=== PATIENT | male | born 1970 | race Caucasian/White ===

== ENCOUNTER 2016-12-18 16:16 | Emergency (ER) | payer MEDICAID ==
[2016-12-18] MEDS ORDERED: HYDROmorphone 1 MG/ML SYRINGE IM STA (16:41)
--- NOTE | 2016-12-18 16:43 | ED Physician Documentation ---
PD HPI HEADACHE - Stated complaint Stated Complaint: HEADACHE X'S 3 DAYS - Chief complaint Chief Complaint: Neuro - History obtained from History obtained from: Patient, Family - History of Present Illness Timing - onset: Other (46-year-old gentleman with no history of headache disorder presents with a three-day gradual onset global throbbing headache not associated with nausea, neck stiffness, photophobia. No cough or runny nose or sinus pain. He is having a lot of ongoing neck pain. Not under undue stress. [id number] oral medications have not been helpful.) Timing - details: Gradual onset, Still present, Constant Review of Systems Ten Systems: 10 systems reviewed and negative Constitutional: reports: Reviewed and negative Nose: reports: Reviewed and negative Throat: reports: Reviewed and negative Cardiac: reports: Reviewed and negative PD PAST MEDICAL HISTORY - Past Medical History Cardiovascular: Hypertension, High cholesterol Psych: Depression, Anxiety, ADD/ADHD Musculoskeletal: Chronic back pain - Past Surgical History Past Surgical History: Yes - Present Medications Home Medications: Ambulatory Orders Medication Instructions Recorded Confirmed Atenolol 100 mg PO QPM 05/06/14 12/18/16 cloNIDine [Catapres] 0.1 tab PO QPM 05/06/14 12/18/16 Gabapentin 0 mg PO .FREQ 05/21/16 12/18/16 HYDROcod/ACETAM 5/325 [[place] 5/325] 1 tab PO QID 12/18/16 12/18/16 Meloxicam [Mobic] 7.5 mg PO BIDWM PRN #15 tablet 12/18/16 Sertraline [Zoloft] 0 mg PO DAILY 12/18/16 12/18/16 - Allergies Allergies/Adverse Reactions: Allergies Allergy/AdvReac Type Severity Reaction Status Date / Time droperidol AdvReac Unknown Verified 12/18/16 16:24 - Social History Does the pt smoke?: No Smoking Status: Never smoker Does the pt drink ETOH?: No Does the pt have substance abuse?: No - Family History Family history: reports: Non contributory - Immunizations Immunizations are current?: Yes PD ED PE NORMAL - Vitals Vital signs reviewed: Yes - General General: Alert and oriented X 3, No acute distress - HEENT HEENT: PERRL, EOMI, Ears normal, Moist mucous membranes, Pharynx benign, Dentition benign - Neck Neck: Supple, no meningeal sign, No bony TTP - Neuro Neuro: Alert and oriented X 3, 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 Given that he doesn' t have a history of headaches cranial imaging was done and negative. Initially was treated with Dilaudid IM, but then after review of his [facility] E. and previous visits here suggesting a concern for narcotic abuse was treated with Toradol IM and Imitrex with good relief Departure - Departure Disposition: 01 Home, Self Care Clinical Impression: Headache Qualifiers: Headache type: unspecified Headache chronicity pattern: acute headache Intractability: not intractable Qualified Code(s): R51 - Headache Condition: Good Record reviewed to determine appropriate education?: Yes Instructions: ED Cephalgia Unspecified Prescriptions: Meloxicam [Mobic] 7.5 mg PO BIDWM PRN #15 tablet PRN Reason: Pain Comments: Call your doctor to arrange a follow up appointment. Make the next available appointment. In the interim return anytime if worse or if new symptoms develop. Your blood pressure was elevated today on check in to the emergency department. This does not mean that you have hypertension, it is a common phenomenon to check into the emergency department and have elevated blood pressure. I recommend that you see your primary care physician within the week to have it rechecked when you're feeling better. Discharge Date/Time: 12/18/16 18:17
[2016-12-18] MEDS ORDERED: HYDROmorphone 1 MG/ML SYRINGE ONE (17:04)
--- NOTE | 2016-12-18 17:27 | CT Preliminary Report ---
Exam: CT Head W/O IMPRESSION: Normal head CT. [facility] SITE ID: [id number]
--- NOTE | 2016-12-18 17:32 | CT Report ---
EXAM: CT HEAD EXAM DATE: 12/18/2016 05:12 PM. CLINICAL HISTORY: Headache. COMPARISON: None. TECHNIQUE: Multiaxial CT images were obtained from the foramen magnum to the vertex. IV contrast: Non e. Reformats: Coronal. In accordance with CT protocol optimization, one or more of the following dose reduction techniques w ere utilized for this exam: automated exposure control, adjustment of mA and/or KV based on patient s ize, or use of iterative reconstructive technique. FINDINGS: Parenchyma: No intraparenchymal hemorrhage. No evidence of mass, midline shift, or CT findings of inf arction. Cohen-white differentiation is distinct. Extraaxial Spaces: Normal for age. No subdural or epidural collections identified. Ventricles: Normal in size and position. Sinuses: Imaged paranasal sinuses, orbits, and mastoids show no significant abnormality. Bones: No evidence of fracture or calvarial defect. Other: None. IMPRESSION: Normal head CT. [facility] Referring Provider Line: [phone] SITE ID: [id number]
[2016-12-18] MEDS ORDERED: KETOROLAC 60 MG/2 ML VIAL IM STA (17:48)
[2016-12-18] MEDS ORDERED: SUMAtriptan 6 MG/0.5 ML VIAL SUBQ STA (17:48)
[2016-12-18] MEDS ORDERED: KETOROLAC 60 MG/2 ML VIAL ONE (17:55)
[2016-12-18] MEDS ORDERED: SUMAtriptan 6 MG/0.5 ML VIAL SUBQ ONE (17:55)
[2016-12-18 18:18] VITALS: BP 160/101
== END 2016-12-18 18:17 | disposition home or self-care (01) ==
LOC: ED 16:16
DX: R51 Headache (principal); I10 Essential (primary) hypertension; E78.00 Pure hypercholesterolemia, unspecified
CPT/HCPCS: 70450; 96372; 99283; J1170

== ENCOUNTER 2017-02-03 18:38 | Emergency (ER) | payer MEDICAID ==
--- NOTE | 2017-02-03 21:27 | ED Physician Documentation ---
PD HPI BACK PAIN - Stated complaint Stated Complaint: LT LOW BACK/LEG PX - Chief complaint Chief Complaint: Back Pain - History obtained from History obtained from: Patient - History of Present Illness Timing - onset: How many days ago (3) Timing - details: Waxing and waning Pain level max: 9 Pain level now: 8 Location: Lower, Left Quality: Pain, Spasm, Similar to prior episodes Associated symptoms: Weakness (mild LLE weakness). No: Fever, Numbness, Incontinent of urine, Unable to urinate, Hematuria, Incontinent of stool Recently seen: Emergency Dept - Additional information Additional information: exacerbation of LBP yesterday after heavy lifting. says he has an appointment with PMD Thursday, but too much pain to wait. says he did not take more than his prescribed narcotic medication, "thats for my nexk and i dont want to run out early". PD PAST MEDICAL HISTORY - Past Medical History Cardiovascular: Hypertension, High cholesterol Psych: Depression, Anxiety, ADD/ADHD Musculoskeletal: Chronic back pain - Past Surgical History Past Surgical History: Yes - Present Medications Home Medications: Ambulatory Orders Medication Instructions Recorded Confirmed Atenolol 100 mg PO QPM 05/06/14 02/03/17 cloNIDine [Catapres] 0.1 tab PO QPM 05/06/14 02/03/17 Gabapentin 0 mg PO .FREQ 05/21/16 02/03/17 HYDROcod/ACETAM 5/325 [[place] 5/325] 1 tab PO QID 12/18/16 02/03/17 Sertraline [Zoloft] 0 mg PO DAILY 12/18/16 02/03/17 - Allergies Allergies/Adverse Reactions: Allergies Allergy/AdvReac Type Severity Reaction Status Date / Time droperidol AdvReac Unknown Verified 12/18/16 16:24 - Social History Does the pt smoke?: No Smoking Status: Never smoker Does the pt drink ETOH?: No Does the pt have substance abuse?: No - Immunizations Immunizations are current?: Yes PD ED PE NORMAL - Vitals Vital signs reviewed: Yes - General General: Alert and oriented X 3, No acute distress, Well developed/nourished - Cardiac Cardiac: RRR, No murmur - Respiratory Respiratory: No respiratory distress, Clear bilaterally - Abdomen Abdomen: Soft, Non tender, Non distended - Derm Derm: Normal color, Warm and dry, No rash - Extremities Extremities: No edema - Neuro Neuro: Alert and oriented X 3, 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 Most recent ED visit was in [place], [place], which patient flatly denies. i expressed my concern with his number and pattern of ED visits. I offered IM toradol, PO flexeril, and oxycodone. I said that any further medications would be nonnarcotic. he responded with "well, why waste anyone's time? just give me the toradol and the flexeril". he also took the oxycodone.i encouraged him to f/ u with his PMD Departure - Departure Disposition: 01 Home, Self Care Clinical Impression: Sciatica Qualifiers: Laterality: left Qualified Code(s): M54.32 - Sciatica, left side Condition: Good Instructions: ED Sciatica Follow-Up: JOSHUA CARDENAS I [Primary Care Provider] - Discharge Date/Time: 02/03/17 22:17
[2017-02-03] MEDS ORDERED: oxyCODONE 5 MG TABLET PO STA (22:08)
[2017-02-03] MEDS ORDERED: CYCLOBENZAPRINE 10 MG TABLET PO STA (22:08)
[2017-02-03] MEDS ORDERED: DEXAMETHASONE 10 MG/ML VIAL PO STA (22:08)
[2017-02-03] MEDS ORDERED: oxyCODONE 5 MG TABLET ONE (22:13)
[2017-02-03] MEDS ORDERED: CYCLOBENZAPRINE 10 MG TABLET PO ONE (22:13)
[2017-02-03] MEDS ORDERED: DEXAMETHASONE 10 MG/ML VIAL ONE (22:14)
[2017-02-03] MEDS ORDERED: CHERRY SYRUP 10 ML UDC PO ONE (22:14)
[2017-02-03 22:17] VITALS: BP 136/89
== END 2017-02-03 22:17 | disposition home or self-care (01) ==
LOC: ED 18:38
DX: M54.32 Sciatica, left side (principal); I10 Essential (primary) hypertension
CPT/HCPCS: 99283; A9270

== ENCOUNTER 2017-02-12 11:07 | Emergency (ER) | payer MEDICAID ==
[2017-02-12 11:14] VITALS: BP 151/91
--- NOTE | 2017-02-12 12:22 | ED Physician Documentation ---
PD HPI LOWER EXT INJURY - Stated complaint Stated Complaint: LT HIP PX - Chief complaint Chief Complaint: Ext Problem - History obtained from History obtained from: Patient - History of Present Illness PD HPI LOW EXT INJURY LOCATION: Other (About a week ago he had a ground-level fall directly onto his left hip, he has persistent pain there, but can walk and bear weight, the worst time is when he rolls over onto it at night. Pain is over the greater trochanteric bursa. No inguinal pain or other injuries.) Review of Systems Constitutional: denies: Fever, Chills GI: denies: Abdominal Pain, Nausea, Vomiting : denies: Dysuria, Frequency Musculoskeletal: denies: Back pain PD PAST MEDICAL HISTORY - Past Medical History Cardiovascular: Hypertension, High cholesterol Psych: Depression, Anxiety, ADD/ADHD Musculoskeletal: Chronic back pain - Past Surgical History Past Surgical History: Yes - Present Medications Home Medications: Ambulatory Orders Medication Instructions Recorded Confirmed Atenolol 100 mg PO QPM 05/06/14 02/12/17 cloNIDine [Catapres] 0.1 tab PO QPM 05/06/14 02/12/17 Gabapentin 0 mg PO .FREQ 05/21/16 02/12/17 Sertraline [Zoloft] 0 mg PO DAILY 12/18/16 02/12/17 Meloxicam [Mobic] 7.5 mg PO BIDWM PRN #15 tablet 02/12/17 - Allergies Allergies/Adverse Reactions: Allergies Allergy/AdvReac Type Severity Reaction Status Date / Time droperidol AdvReac Unknown Verified 12/18/16 16:24 - Social History Does the pt smoke?: No Smoking Status: Never smoker Does the pt drink ETOH?: No Does the pt have substance abuse?: No - Immunizations Immunizations are current?: Yes PD ED PE NORMAL - Vitals Vital signs reviewed: Yes - General General: Alert and oriented X 3, No acute distress - Extremities Extremities: Other (He is focally tender over the greater trochanteric bursa of the left hip, he is able to walk and bear weight without evidence of pain, internal and external rotation is painless.) - Neuro Neuro: Alert and oriented X 3, Normal speech - Psych Psych: Normal mood, Normal affect Results - Vitals Vitals: Vital Signs - 24 hr 02/12/17 11:12 Temperature 36.3 C L Heart Rate 86 Respiratory 18 Rate Blood Pressure 151/91 H O2 Saturation 96 Oxygen O2 Source Room air - Rads (name of study) 2 views left hip Radiology: EMP read contemporaneously (normal) PD MEDICAL DECISION MAKING - ED course ED course: GAY reviewed, somewhat concerning pattern with 15 emergency department visits for various pain complaints this year. 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 Departure - Departure Disposition: 01 Home, Self Care Clinical Impression: Fall from ground level, Trochanteric bursitis of left hip Condition: Good Record reviewed to determine appropriate education?: Yes Instructions: ED Bursitis Prescriptions: Meloxicam [Mobic] 7.5 mg PO BIDWM PRN #15 tablet PRN Reason: Pain Comments: Follow-up with your doctor on return home, consider orthopedic referral and/or physical therapy if pain persists. Your blood pressure was elevated today on check into the emergency department. This does not mean that you have hypertension, it is a common phenomenon to come to the emergency department and have elevated blood pressure. I recommend that she see her primary care physician within the week to have it rechecked when you are feeling better.
--- NOTE | 2017-02-12 12:34 | XRAY Preliminary Report ---
Exam: XR Hip w/Pelvis 2-3V LT IMPRESSION: 1. Stable examination with no fracture or articular abnormality. 2. Mild superior acetabular retroversion bilaterally, unchanged. Potentially it may predispose the pa tient to femoroacetabular impingement. [facility] SITE ID: [id number]
--- NOTE | 2017-02-12 12:36 | XRAY Report ---
EXAM: LEFT HIP AND PELVIS RADIOGRAPHY EXAM DATE: 02/12/2017 12:07 PM. HISTORY: Injury. Fell 7 days ago. Left hip pain. COMPARISONS: LEFT HIP AND PELVIS RADIOGRAPHY 01/21/2008. TECHNIQUE: 1 view of the pelvis and 1 view of the left hip. FINDINGS: Bones: Mild superior acetabular retroversion bilaterally, unchanged. No fracture or bone lesion. Joints: The bilateral hip, pubis symphysis, and sacroiliac joints are preserved. Soft Tissues: Normal. No soft tissue swelling. IMPRESSION: 1. Stable examination with no fracture or articular abnormality. 2. Mild superior acetabular retroversion bilaterally, unchanged. Potentially it may predispose the pa tient to femoroacetabular impingement. [facility] Referring Provider Line: [phone] SITE ID: [id number]
== END 2017-02-12 12:25 | disposition home or self-care (01) ==
LOC: ED 11:07
DX: M70.62 Trochanteric bursitis, left hip (principal); W18.30XA Fall on same level, unspecified, initial encounter; I10 Essential (primary) hypertension; E78.00 Pure hypercholesterolemia, unspecified
CPT/HCPCS: 99283

== ENCOUNTER 2017-03-18 07:38 | Emergency (ER) | payer MEDICAID ==
--- NOTE | 2017-03-18 08:05 | ED Physician Documentation ---
History of Present Illness - Stated complaint Stated Complaint: DIFFICULTY BREATHING - Chief complaint Chief Complaint: Cardiac - Additonal information Additional information: hx from pt 46 male HTN hyperlipidemia smoker has chemical stress test at [facility] 1-2 yr ago neg per pt report to ER today with chest tightness and SOA since 9PM last night, constant but dyspnea is worse with laying down no radiation no nausea vomiting no diaphoresis no fever cough no leg swelling no recent travel Review of Systems Constitutional: denies: Fever, Chills, Sweats Cardiac: reports: Chest pain / pressure Respiratory: reports: Dyspnea. denies: Cough GI: denies: Abdominal Pain, Nausea, Vomiting, Diarrhea Musculoskeletal: denies: Extremity pain, Extremity swelling Neurologic: denies: Generalized weakness Endocrine: denies: Easy bruising / bleeding Immunocompromised: denies: Immunocompromised PD PAST MEDICAL HISTORY - Past Medical History Cardiovascular: Hypertension, High cholesterol Psych: Depression, Anxiety, ADD/ADHD Musculoskeletal: Chronic back pain - Past Surgical History Past Surgical History: Yes - Present Medications Home Medications: Ambulatory Orders Medication Instructions Recorded Confirmed Atenolol 100 mg PO QPM 05/06/14 02/12/17 cloNIDine [Catapres] 0.1 tab PO QPM 05/06/14 03/18/17 Gabapentin 900 mg PO TID 05/21/16 02/12/17 Sertraline [Zoloft] 0 mg PO DAILY 12/18/16 02/12/17 Meloxicam [Mobic] 7.5 mg PO BIDWM PRN #15 tablet 02/12/17 Indomethacin [Indocin] 25 mg PO BIDWM PRN #20 capsule 03/18/17 raNITIdine [Zantac] 150 mg PO BID #60 tablet 03/18/17 - Allergies Allergies/Adverse Reactions: Allergies Allergy/AdvReac Type Severity Reaction Status Date / Time droperidol AdvReac Unknown Verified 12/18/16 16:24 - Social History Does the pt smoke?: No Smoking Status: Never smoker Does the pt drink ETOH?: No Does the pt have substance abuse?: No - Immunizations Immunizations are current?: Yes PD ED PE NORMAL - Vitals Vital signs reviewed: Yes - General General: Alert and oriented X 3 - HEENT HEENT: PERRL - Neck Neck: Supple, no meningeal sign - Cardiac Cardiac: RRR - Respiratory Respiratory: No respiratory distress, Clear bilaterally - Abdomen Abdomen: Soft, Non tender - Derm Derm: Normal color - Extremities Extremities: No deformity, Normal ROM s pain, No edema, No calf tenderness / cord - Neuro Neuro: Alert and oriented X 3 - Psych Psych: Normal mood Results - Vitals Vitals: Vital Signs - 24 hr 03/18/17 03/18/17 03/18/17 07:46 08:24 08:32 Temperature 36.6 C Heart Rate 67 61 62 Respiratory 18 Rate Blood Pressure 112/73 118/79 121/73 O2 Saturation 98 98 95 03/18/17 03/18/17 03/18/17 09:29 10:29 11:34 Temperature 36.0 C L 36.5 C 36.9 C Heart Rate 62 62 58 L Respiratory 13 15 16 Rate Blood Pressure 130/80 135/86 H 111/71 O2 Saturation 97 98 98 03/18/17 12:35 Temperature 36.1 C L Heart Rate 58 L Respiratory 14 Rate Blood Pressure 117/61 O2 Saturation 97 Oxygen O2 Source Room air - EKG (time done) 0754 Rate: Rate (enter#) (63) Rhythm: NSR [place]: Normal Intervals: Normal [place] QRS: Normal Ischemia: Normal ST segments - Labs Labs: Laboratory Tests 03/18/17 03/18/17 03/18/17 08:05 08:05 08:05 WBC 6.0 RBC 4.61 L Hgb 13.8 L Hct 41.8 L MCV 90.6 MCH 29.9 MCHC 33.0 RDW 12.8 Plt Count 152 MPV 8.0 Neut # 3.0 Lymph # 2.2 Lewis # 0.4 Eos # 0.3 Baso # 0.1 Absolute Nucleated RBC 0.00 Nucleated RBCs 0.0 Sodium 139 Potassium 4.3 Chloride 100 L Carbon Dioxide 30 Anion Gap 9.0 BUN 17 Creatinine 1.1 Estimated GFR (MDRD) 71 L Glucose 155 H Calcium 9.1 Total Bilirubin 0.4 AST 43 H ALT 48 Alkaline Phosphatase 50 Troponin I < 0.04 Total Protein 7.0 Albumin 4.3 Globulin 2.7 Albumin/Globulin Ratio 1.6 Lipase 21 L - Rads (name of study) CTPA Radiology: See rad report (no PE, mild inc lung marking RLL likely atelectasis) PD MEDICAL DECISION MAKING - ED course ED course: neg EKG and trop after 10+ hr of pain rules out ACS CTA neg for dissection and PE sx worse with laying down, but no CHF consider pericarditis, EKG without typical findings and no effusion seen on CT will reassure not CO PE dissection, perhaps pericarditis or pleurisy will dc with NSAID and PMD fup Departure - Departure Disposition: 01 Home, Self Care Clinical Impression: Chest pain Qualifiers: Chest pain type: unspecified Qualified Code(s): R07.9 - Chest pain, unspecified Condition: Good Instructions: ED Chest Pain Pleurisy, ED Chest Pain Pericarditis Follow-Up: JOSHUA CARDENAS I [Primary Care Provider] - Prescriptions: Indomethacin [Indocin] 25 mg PO BIDWM PRN #20 capsule PRN Reason: pain/inflammation raNITIdine [Zantac] 150 mg PO BID #60 tablet Comments: Your test results were all very reassuring The EKG and cardiac enzymes were negative after 10+hr of symptoms so it does not seem the pain was due to a heart attack. The CT scan was fine - no blood clot in your lung, no aneurysm or tear of your aorta, no fluid around your lungs or heart. Since the pain is worse with laying down and better when you sit up, the symptoms could be due to inflammation of the lining around your heart (called pericarditis) or perhaps the lining around your lungs (called pleurisy). Both these problems are uncomfortable but not usually dangerous and can be managed with anti-inflammatories and pain control I think it is safe for you to go home I prescribed indocin for the anti-inflammatory effect and that will help with the pain too. I do not want to mask any worsening symptoms with narcotics. But nit is OK to take tylenol for the pain as well as the indocin And I also prescribed zantac so the indocin does not hurt your stomach Do not take mobic while taking indocin Please follow up with your PMD for a recheck before the weekend Forms: Activity restrictions
[2017-03-18 08:14] LABS: BASOPHILS # (AUTO) 0.1 10^3/uL (0.0-0.1); BASOPHILS % (AUTO) 1.1 %; EOSINOPHILS # (AUTO) 0.3 10^3/uL (0.0-0.7); EOSINOPHILS % (AUTO) 5.3 %; HCT - HEMATOCRIT 41.8 % (42.0-52.0); HGB - HEMOGLOBIN 13.8 g/dL (14.0-18.0); LYMPHOCYTES # (AUTO) 2.2 10^3/uL (1.5-3.5); LYMPHOCYTES % (AUTO) 36.9 %; MEAN CORPUSCULAR HEMOGLOBIN 29.9 pg (27.0-31.0); MEAN CORPUSCULAR VOLUME 90.6 fL (80.0-94.0); MONOCYTES # (AUTO) 0.4 10^3/uL (0.0-1.0); MONOCYTES % (AUTO) 7.1 %; NEUTROPHILS % (AUTO) 49.6 %; RED BLOOD COUNT 4.61 10^6/uL (4.70-6.10); RED CELL DISTRIBUTION WIDTH 12.8 % (12.0-15.0)
[2017-03-18] MEDS ORDERED: ASPIRIN CHEW 81 MG TABLET PO STA (08:16)
[2017-03-18] MEDS ORDERED: NITROGLYCERIN SL 0.4 MG TABLET SL STA (08:16)
[2017-03-18 08:25] LABS: ALBUMIN/GLOBULIN RATIO 1.6 (1.0-2.2); BILIRUBIN,TOTAL 0.4 mg/dL (0.2-1.0); CALCIUM 9.1 mg/dL (8.5-10.3); CREATININE 1.1 mg/dL (0.6-1.2); POTASSIUM 4.3 mmol/L (3.5-5.0)
[2017-03-18] MEDS ORDERED: ASPIRIN CHEW 81 MG TABLET ONE (08:26)
[2017-03-18] MEDS ORDERED: NITROGLYCERIN SL 0.4 MG TABLET SL ONE (08:26)
[2017-03-18] MEDS ORDERED: MORPHINE 2 MG/ML SYRINGE IVP STA ×2 (08:34→09:25)
[2017-03-18] MEDS ORDERED: MORPHINE 2 MG/ML SYRINGE ONE ×2 (08:40→09:34)
[2017-03-18] MEDS ORDERED: SODIUM CHLORIDE FLUSH 0.9% 10 ML SYRINGE IVP ONE (08:49)
--- NOTE | 2017-03-18 09:17 | XRAY Preliminary Report ---
Exam: XR Chest 2 View PA/LAT Impression: No evidence of infiltrate. [facility] SITE ID: [id number]
--- NOTE | 2017-03-18 09:20 | XRAY Report ---
EXAM: CHEST RADIOGRAPHY EXAM DATE: 03/18/2017 09:03 AM. CLINICAL HISTORY: Short of air . COMPARISON: 06/30/2015. TECHNIQUE: 2 views. FINDINGS: This exam is limited due to the patient's body habitus. There is redemonstration of postoperative tobias nges of the lower cervical and thoracic spine. The heart is not enlarged. There is no focal infiltrat e, pleural effusion or pneumothorax seen. Impression: No evidence of infiltrate. [facility] Referring Provider Line: [phone] SITE ID: [id number]
[2017-03-18] MEDS ORDERED: IOPAMIDOL-300 100 ML VIAL IVP ONE (11:09)
--- NOTE | 2017-03-18 11:46 | CT Preliminary Report ---
Exam: CT Chest Angio (PE) Impression: No evidence of a pulmonary embolus. Mild increased lung markings in the right lower lobe of the lung most likely represent atelectasis an d less likely infiltrate. [facility] SITE ID: [id number]
--- NOTE | 2017-03-18 11:48 | CT Report ---
EXAM: CT ANGIOGRAM CHEST EXAM DATE: 03/18/2017 11:10 AM. CLINICAL HISTORY: Cp soa. COMPARISON: None. TECHNIQUE: Routine helical imaging was performed through the chest in the pulmonary arterial phase. I V Contrast: 80 cc of Isovue-300. Reconstructions: Coronal 3-D MIP reconstructions.Sagittal and miller l. In accordance with CT protocol optimization, one or more of the following dose reduction techniques w ere utilized for this exam: automated exposure control, adjustment of mA and/or KV based on patient s ize, or use of iterative reconstructive technique. FINDINGS: There is no evidence of a mediastinal mass or lymphadenopathy. There is adequate opacification of the pulmonary arteries. There is no filling defect to suggest the presence of a pulmonary embolus. There is no pulmonary mass, pleural effusion or pneumothorax seen. Increased lung markings are noted within the right lung base most likely represent atelectasis and less likely an infiltrate. The visualized upper abdominal organs are without evidence of an enhancing mass. There are degenerati ve changes of the thoracic spine. Impression: No evidence of a pulmonary embolus. Mild increased lung markings in the right lower lobe of the lung most likely represent atelectasis an d less likely infiltrate. [facility] Referring Provider Line: [phone] SITE ID: [id number]
[2017-03-18 12:36] VITALS: BP 117/61
== END 2017-03-18 13:05 | disposition home or self-care (01) ==
LOC: ED 07:38
DX: R07.9 Chest pain, unspecified (principal); I10 Essential (primary) hypertension; E78.5 Hyperlipidemia, unspecified; E78.00 Pure hypercholesterolemia, unspecified; F17.200 Nicotine dependence, unspecified, uncomplicated
CPT/HCPCS: 36415; 71020; 71275; 80053; 83690; 84484; 85025; 93005; 96374; 96376; 99284; A9270; J2270; Q9967

== ENCOUNTER 2017-05-16 11:51 | Emergency (ER) | payer MEDICAID ==
--- NOTE | 2017-05-16 14:17 | ED Physician Documentation ---
PD HPI BACK PAIN - Stated complaint Stated Complaint: BACK PX - Chief complaint Chief Complaint: Back Pain - History obtained from History obtained from: Patient - History of Present Illness Timing - duration: Days (he has noted increased low back pain over baseline for the pastweek or so, and 2 days of onset of numbness feeling in scrotum, inner thighs, and having some feeling of urinary hesitancy without incontinence. No new injury. No fever, rash, viral symptoms.) Timing - details: Gradual onset, Still present Location: Lower, Right, Left Quality: No: Pain, Spasm Associated symptoms: Numbness, Unable to urinate (some hesitancy). No: Weakness , Incontinent of urine Improves with: No: Rest Worsened by: Movement Review of Systems Constitutional: denies: Fever, Chills Nose: denies: Rhinorrhea / runny nose, Congestion Throat: denies: Sore throat Respiratory: denies: Cough GI: denies: Abdominal Pain, Nausea, Vomiting, Diarrhea : reports: Hesitancy. denies: Dysuria, Frequency, Hematuria Skin: denies: Rash PD PAST MEDICAL HISTORY - Past Medical History Cardiovascular: Hypertension, High cholesterol Neuro: None Psych: Depression, Anxiety, ADD/ADHD Musculoskeletal: Chronic back pain (with MRI couple months ago showing disc protrusion to L5 nerve root. Has appt with Spine surgeon in [address].) - Past Surgical History Past Surgical History: Yes - Present Medications Home Medications: Ambulatory Orders Medication Instructions Recorded Confirmed Atenolol 100 mg PO QPM 05/06/14 05/16/17 cloNIDine [Catapres] 0.1 tab PO QPM 05/06/14 05/16/17 Gabapentin 900 mg PO TID 05/21/16 05/16/17 Sertraline [Zoloft] 0 mg PO DAILY 12/18/16 05/16/17 Meloxicam [Mobic] 7.5 mg PO BIDWM PRN #15 tablet 02/12/17 05/16/17 Indomethacin [Indocin] 25 mg PO BIDWM PRN #20 capsule 03/18/17 05/16/17 raNITIdine [Zantac] 150 mg PO BID #60 tablet 03/18/17 05/16/17 Cyclobenzaprine [Flexeril] 10 mg PO TID PRN #30 tablet 05/16/17 Dexamethasone [Decadron] 4 mg PO DAILY #5 tablet 05/16/17 Gabapentin 800 mg PO TID #30 tablet 05/16/17 oxyCODONE [Roxicodone] 5 mg PO Q4-6H PRN #20 tablet 05/16/17 - Allergies Allergies/Adverse Reactions: Allergies Allergy/AdvReac Type Severity Reaction Status Date / Time droperidol AdvReac Unknown Verified 05/16/17 11:57 - Social History Does the pt smoke?: No Smoking Status: Never smoker Does the pt drink ETOH?: No Does the pt have substance abuse?: No - Immunizations Immunizations are current?: Yes PD ED PE NORMAL - Vitals Vital signs reviewed: Yes - General General: Alert and oriented X 3, Well developed/nourished, Other (appears in pain) - HEENT HEENT: Pharynx benign - Neck Neck: Supple, no meningeal sign, No adenopathy - Cardiac Cardiac: RRR, No murmur - Respiratory Respiratory: Clear bilaterally - Abdomen Abdomen: Normal bowel sounds, Soft, Non tender, Non distended - Male Male : Other (less sensation of scrotum and inner thighs, but still has some cremaster response. Perirectal with less sensation subjectively, but has normal feeling rectal one. ) - Back Back: No CVA TTP - Derm Derm: Normal color, Warm and dry, No rash Results - Vitals Vitals: Vital Signs - 24 hr 05/16/17 05/16/17 05/16/17 11:53 14:45 18:27 Temperature 36.8 C 36.5 C Heart Rate 122 H 100 104 H Respiratory 20 16 18 Rate Blood Pressure 181/101 H 161/96 H 156/96 H O2 Saturation 99 97 96 05/16/17 18:53 Temperature Heart Rate 105 H Respiratory 16 Rate Blood Pressure 169/97 H O2 Saturation 97 Oxygen O2 Source Room air - Rads (name of study) lumbar MRI Radiology: Prelim report reviewed (see report. ) PD MEDICAL DECISION MAKING - ED course Complexity details: reviewed old records, reviewed results (Has MRI showing extruded disc L5-S1 but without significant cord canal stenosis (moderate). There is nerve root compresssion laterally. Consider if new numbness could be nerve radicular rather than central canal. He is out of some of his meds too ( gabapentin and flexeril). ), considered differential, d/w patient, d/w construction safety consultant (Lionel Redman) Departure - Departure Disposition: 01 Home, Self Care Clinical Impression: Perineal numbness Back pain Qualifiers: Back pain location: low back pain Chronicity: chronic Back pain laterality: bilateral Sciatica presence: with sciatica Sciatica laterality: sciatica of right side Qualified Code(s): M54.41 - Lumbago with sciatica, right side Condition: Stable Record reviewed to determine appropriate education?: Yes Instructions: ED Sciatica Follow-Up: JOSHUA CARDENAS I [Primary Care Provider] - Lionel Redman MD [Physician No Access] - Prescriptions: Cyclobenzaprine [Flexeril] 10 mg PO TID PRN #30 tablet PRN Reason: Spasms Dexamethasone [Decadron] 4 mg PO DAILY #5 tablet Gabapentin 800 mg PO TID #30 tablet oxyCODONE [Roxicodone] 5 mg PO Q4-6H PRN #20 tablet PRN Reason: Pain Comments: Continue usual medications including the gabapentin Flexeril and continue several more days of steroids Decadron. Add Tylenol 3-4 times a day for pain as needed. Add oxycodone if needed for pain. Contact Dr. Lionel Redman's office on Thursday for a sooner appointment. I talked with Dr. Redman and he said they will get you in sooner than the as scheduled. His office number is [phone]. If you are having worsening symptoms or have questions over the weekend, Dr. Redman did offer his cell phone #[phone]. Return to the ER if needed. Discharge Date/Time: 05/16/17 19:09
[2017-05-16] MEDS ORDERED: HYDROmorphone 1 MG/ML SYRINGE IM STA ×2 (14:34→18:35)
[2017-05-16] MEDS ORDERED: HYDROmorphone 1 MG/ML SYRINGE ONE ×2 (14:47→18:45)
--- NOTE | 2017-05-16 17:52 | MRI Preliminary Report ---
Exam: MRI LUMBAR SPINE W/O IMPRESSION: 1. Moderate multilevel degenerative spondylosis, as detailed above and summarized below. This is supe rimposed on moderate diffuse, likely congenital narrowing of the central canal. No acute fracture or malalignment. No cord signal abnormality at any level. 2. Redemonstration of bilateral L5 pars defects, which grade 1 anterolisthesis L5 on S1 measuring 3 m m. Mild lumbar levoscoliosis.. 3. L2-L3 level demonstrates mild central canal narrowing. Mild bilateral neuroforaminal narrowing. 4. L3-L4 level demonstrates cgmx-xu-sxxnnocs central canal narrowing. Moderate right and mild left ne uroforaminal narrowing. 5. L4-L5 level demonstrates moderate central canal narrowing. Moderate right and mild left neuroforam inal narrowing. Moderate right lateral recess narrowing with mass effect on traversing right L5 nerve . 6. L5-S1 level demonstrates moderate central canal narrowing, mainly due to the epidural lipomatosis. Moderate to severe left and moderate right neuroforaminal narrowing. Comment: The following findings are so common in adults without low back pain that while we report th eir presence, they must be interpreted with caution and in the context of the clinical situation. (Re clayton Laws et al, Spine 2001) Prevalence of findings in patients without low back pain: Disk degeneration (any evidence): 92% Disk desiccation/T2 signal loss: 83% Disk height loss: 56% Disk bulge: 64% Disk protrusion: 32% Annular tear/high intensity zone: 38% [facility] SITE ID: [id number]
--- NOTE | 2017-05-16 17:55 | MRI Report ---
EXAM: MRI LUMBAR SPINE WITHOUT CONTRAST EXAM DATE: 05/16/2017 05:08 PM. CLINICAL HISTORY: H/o back disc problems, saddle anesth 5 days. COMPARISON: Radiograph lumbar spine 04/27/2009 TECHNIQUE: Multiplanar, multisequence T1-weighted and fluid-sensitive sequences of the lumbar spine f rom T12 to S1 without contrast. Other: None. FINDINGS: Spinal Cord: The conus terminates at . The conus medullaris and cauda equina are unremarkable. Alignment: Mild levoscoliosis lumbar spine Coates angle 5 degrees. Grade 1 anterolisthesis L5 on S1 fish suring 3 mm. Bone Marrow: Five phj-dba-diwbxqc lumbar vertebral bodies are assumed. Redemonstration of bilateral L 5 pars defects. The bone marrow is diffusely heterogeneous, likely representing fatty replacement of the marrow. T1 and T2 hyperintense lesions within the L2 and L3 vertebral bodies likely represent zane ign hemangiomata. There is diffuse, likely congenital narrowing of the central canal, with canal AP diameter measuring 11 mm at L2, L3, and L4 levels, for example. Disk Levels/Facets: T12-L1: No significant superimposed central canal or neuroforaminal narrowing. L1-L2: No significant superimposed central canal or neuroforaminal narrowing. L2-L3: Mild diffuse disk bulge. Moderate bilateral facet arthropathy. Mild central canal narrowing. M ild bilateral neuroforaminal narrowing. L3-L4: Moderate disk height loss and desiccation. Moderate diffuse disk bulge. Moderate bilateral fac et arthropathy. Cujg-jo-ybwjtfrm central canal narrowing. Moderate right and mild left neuroforaminal narrowing. L4-L5: Moderate disk height loss and desiccation. Moderate diffuse disk bulge with superimposed centr al disk extrusion measuring 6 mm, with an annular fissure. Moderate to severe bilateral facet arthrop athy. Moderate central canal narrowing. Moderate right and mild left neuroforaminal narrowing. Modera te right lateral recess narrowing with mass effect on traversing right L5 nerve. L5-S1: Moderate epidural lipomatosis. Uncovered disk with superimposed diffuse disk bulge with an kandis ular fissure. Moderate bilateral facet arthropathy. Moderate central canal narrowing, mainly due to t he epidural lipomatosis. Moderate to severe left and moderate right neuroforaminal narrowing. Musculature: Normal. No edema or fatty atrophy. Other: The partially visualized retroperitoneum is unremarkable. IMPRESSION: 1. Moderate multilevel degenerative spondylosis, as detailed above and summarized below. This is supe rimposed on moderate diffuse, likely congenital narrowing of the central canal. No acute fracture or malalignment. No cord signal abnormality at any level. 2. Redemonstration of bilateral L5 pars defects, which grade 1 anterolisthesis L5 on S1 measuring 3 m m. Mild lumbar levoscoliosis.. 3. L2-L3 level demonstrates mild central canal narrowing. Mild bilateral neuroforaminal narrowing. 4. L3-L4 level demonstrates rzog-dp-vaeactzi central canal narrowing. Moderate right and mild left ne uroforaminal narrowing. 5. L4-L5 level demonstrates moderate central canal narrowing. Moderate right and mild left neuroforam inal narrowing. Moderate right lateral recess narrowing with mass effect on traversing right L5 nerve . 6. L5-S1 level demonstrates moderate central canal narrowing, mainly due to the epidural lipomatosis. Moderate to severe left and moderate right neuroforaminal narrowing. Comment: The following findings are so common in adults without low back pain that while we report th eir presence, they must be interpreted with caution and in the context of the clinical situation. (Re clayton Laws et al, Spine 2001) Prevalence of findings in patients without low back pain: Disk degeneration (any evidence): 92% Disk desiccation/T2 signal loss: 83% Disk height loss: 56% Disk bulge: 64% Disk protrusion: 32% Annular tear/high intensity zone: 38% [facility] Referring Provider Line: [phone] SITE ID: [id number]
[2017-05-16] MEDS ORDERED: DEXAMETHASONE 10 MG/ML VIAL PO STA (18:20)
[2017-05-16] MEDS ORDERED: oxyCODONE/ACET 5/325 Prepack 4 PO STA (18:35)
[2017-05-16] MEDS ORDERED: CYCLOBENZAPRINE 10 MG TABLET PO STA (18:36)
[2017-05-16] MEDS ORDERED: oxyCODONE/ACET 5/325 Prepack 4 PO ONE (18:45)
[2017-05-16] MEDS ORDERED: DEXAMETHASONE 10 MG/ML VIAL ONE (18:45)
[2017-05-16] MEDS ORDERED: CYCLOBENZAPRINE 10 MG TABLET PO ONE (18:45)
[2017-05-16 18:56] VITALS: BP 169/97
== END 2017-05-16 19:09 | disposition home or self-care (01) ==
LOC: ED 11:51
DX: M54.41 Lumbago with sciatica, right side (principal); R20.0 Anesthesia of skin; I10 Essential (primary) hypertension; E78.00 Pure hypercholesterolemia, unspecified
CPT/HCPCS: 72148; 96372; 99283; 99284; A9270; J1170

== ENCOUNTER 2017-05-25 13:32 | Emergency (ER) | payer MEDICAID ==
[2017-05-25 13:52] VITALS: BP 173/93
--- NOTE | 2017-05-25 14:38 | ED Physician Documentation ---
PD HPI BACK PAIN - Stated complaint Stated Complaint: BACK PX - Chief complaint Chief Complaint: Back Pain - History obtained from History obtained from: Patient - History of Present Illness Timing - duration: Weeks Timing - details: Gradual onset, Still present (has had back pain and was to see back surgeon in [place]. Had visit here recently for perineal numbness with MRI. Saw the back surgeon Thursday (3 days ago) but they did not have MRI report ( had given patient disc of the MRI to take with him but he had left it at home). So no advancement on the evaluation. Patient denies any progression on inguinal numbness and has not had weakness/incontinence. Out of pain meds.) Location: Lower, Right, Left Quality: Pain, Sharp Associated symptoms: Numbness (perineal and some down left leg.). No: Fever, Weakness, Incontinent of urine Worsened by: Movement Contributing factors: No: Twisting, Trauma Recently seen: Clinic (back surgeon 3 days ago) Review of Systems Constitutional: denies: Fever, Chills Cardiac: denies: Chest pain / pressure GI: denies: Abdominal Pain, Nausea, Vomiting, Diarrhea : denies: Dysuria, Frequency, Incontinent, Hematuria Skin: denies: Rash PD PAST MEDICAL HISTORY - Past Medical History Past Medical History: Yes Cardiovascular: Hypertension, High cholesterol Neuro: None Psych: Depression, Anxiety, ADD/ADHD Musculoskeletal: Chronic back pain - Past Surgical History Past Surgical History: Yes - Present Medications Home Medications: Ambulatory Orders Medication Instructions Recorded Confirmed Atenolol 100 mg PO QPM 05/06/14 05/25/17 cloNIDine [Catapres] 0.1 tab PO QPM 05/06/14 05/25/17 Sertraline [Zoloft] 0 mg PO DAILY 12/18/16 05/25/17 Meloxicam [Mobic] 7.5 mg PO BIDWM PRN #15 tablet 02/12/17 05/25/17 Indomethacin [Indocin] 25 mg PO BIDWM PRN #20 capsule 03/18/17 05/25/17 raNITIdine [Zantac] 150 mg PO BID #60 tablet 03/18/17 05/25/17 oxyCODONE [Roxicodone] 5 mg PO Q4-6H PRN #20 tablet 05/16/17 05/25/17 Cyclobenzaprine [Flexeril] 10 mg PO TID PRN #30 tablet 05/25/17 Dexamethasone [Decadron] 4 mg PO DAILY #5 tablet 05/25/17 Gabapentin 800 mg PO TID #20 tablet 05/25/17 Oxycodone HCl 5 mg PO Q6H PRN #20 tablet 05/25/17 - Allergies Allergies/Adverse Reactions: Allergies Allergy/AdvReac Type Severity Reaction Status Date / Time droperidol AdvReac Unknown Verified 05/25/17 13:52 - Social History Does the pt smoke?: No Smoking Status: Never smoker Does the pt drink ETOH?: No Does the pt have substance abuse?: No - Immunizations Immunizations are current?: Yes - POLST Patient has POLST: No PD ED PE NORMAL - Vitals Vital signs reviewed: Yes - General General: Alert and oriented X 3, Well developed/nourished, Other (guarded ROM of the low back) - Neck Neck: Supple, no meningeal sign, No adenopathy - Cardiac Cardiac: RRR, No murmur - Respiratory Respiratory: Clear bilaterally - Abdomen Abdomen: Soft, Non tender - Male Male : Deferred - Rectal Rectal: Deferred - Back Back: No CVA TTP, Other (tender lower back midline and also both sides muscular , left worse. No rash nor sores. ) - Derm Derm: Normal color, Warm and dry - Extremities Extremities: Normal ROM s pain, No edema, No calf tenderness / cord - Neuro Neuro: Alert and oriented X 3, No motor deficit, Normal speech, Other (less sensation to left lateral leg and genital exam deferred this visit (had checked on prior visit). ) - Psych Psych: Normal mood, Normal affect Results - Vitals Vitals: Vital Signs - 24 hr 05/25/17 13:47 Temperature 36.2 C L Heart Rate 111 H Respiratory 18 Rate Blood Pressure 173/93 H O2 Saturation 98 Oxygen O2 Source Room air PD MEDICAL DECISION MAKING - ED course Complexity details: considered differential (familiar with patient and story from last visit. He had appt with spine surgeon but did not have images so intervention/assessment delayed for a week or so. Will give meds to bridge again , though be wary of repeated delays or such, and would track down info/ corraborate story if further visits. ), d/w patient Departure - Departure Disposition: 01 Home, Self Care Clinical Impression: Sciatica Qualifiers: Laterality: unspecified laterality Qualified Code(s): M54.30 - Sciatica, unspecified side Back pain Qualifiers: Back pain location: low back pain Chronicity: chronic Back pain laterality: unspecified Sciatica presence: with sciatica Sciatica laterality: sciatica laterality unspecified Qualified Code(s): M54.40 - Lumbago with sciatica, unspecified side Condition: Stable Record reviewed to determine appropriate education?: Yes Instructions: ED Sciatica Follow-Up: JOSHUA CARDENAS I [Primary Care Provider] - Prescriptions: Cyclobenzaprine [Flexeril] 10 mg PO TID PRN #30 tablet PRN Reason: Spasms Dexamethasone [Decadron] 4 mg PO DAILY #5 tablet Gabapentin 800 mg PO TID #20 tablet Oxycodone HCl 5 mg PO Q6H PRN #20 tablet PRN Reason: Pain Comments: Use medications as directed for nerve pain, inflammation, muscle spasms, and pain. These are the same prescriptions as from the recent visit to the ER and hopefully that will work as consistently again. Follow-up with your primary care and also the back surgeon in [place]. Discharge Date/Time: 05/25/17 15:53
[2017-05-25] MEDS ORDERED: KETOROLAC 60 MG/2 ML VIAL IM STA (15:05)
[2017-05-25] MEDS ORDERED: HYDROmorphone 1 MG/ML SYRINGE IM STA (15:05)
[2017-05-25] MEDS ORDERED: HYDROmorphone 1 MG/ML SYRINGE ONE (15:17)
[2017-05-25] MEDS ORDERED: KETOROLAC 60 MG/2 ML VIAL ONE (15:17)
== END 2017-05-25 15:53 | disposition home or self-care (01) ==
LOC: ED 13:32
DX: M54.40 Lumbago with sciatica, unspecified side (principal); I10 Essential (primary) hypertension; E78.00 Pure hypercholesterolemia, unspecified
CPT/HCPCS: 96372; 99283; J1170

== ENCOUNTER 2017-06-15 10:30 | Outpatient (CLI) | payer MEDICAID ==
--- NOTE | 2017-06-16 12:11 | XRAY Report ---
EXAM: LUMBOSACRAL SPINE RADIOGRAPHY EXAM DATE: 06/15/2017 01:50 PM. CLINICAL HISTORY: Spinal stenosis of lumbar region. COMPARISONS: 04/27/2009. 05/16/2017. TECHNIQUE: 5 views. FINDINGS: Alignment: Slight accentuation of the lumbar lordosis. In the neutral position there is anterolisthes is of L5 on S1 measuring 4 mm, on extension measuring approximately 6 mm, and on flexion measuring 7 mm. Bones: Five yki-ode-fdykdtz lumbar vertebral bodies are present. No acute fracture. Degenerative spur ring. L5 pars interarticularis defect is noted. Disks: Mild disk space narrowing at L3-L4 and L4-L5. Degenerative changes are seen on the thoracic sp ine. Facets: Mild to moderate lumbar facet arthropathy. Sacroiliac Joints: Unremarkable. Soft Tissues: Normal. The visualized bowel gas pattern is normal. IMPRESSION: 1. Grade 1 anterolisthesis of L5 on S1 due to bilateral pars interarticularis defects at L5. Mild tra nslation between flexion and extension. 2. Mild intervertebral disk degenerative changes of the lumbar spine. 3. Mild to moderate lumbar facet arthropathy. [facility] Referring Provider Line: [phone] SITE ID: [id number]
== END 2017-06-15 10:31 | disposition home or self-care (01) ==
LOC: DI 10:30
PROVIDERS: ATTEND Neurological Surgery
DX: M43.07 Spondylolysis, lumbosacral region (principal); M51.36 Other intervertebral disc degeneration, lumbar region; M47.896 Other spondylosis, lumbar region
CPT/HCPCS: 72110

== ENCOUNTER 2017-07-06 16:40 | Emergency (ER) | payer MEDICAID ==
[2017-07-06 16:55] VITALS: BP 153/93
[2017-07-06] MEDS ORDERED: oxyCOD/ACETAMIN 5 MG/325 MG TABLET PO STA (18:00)
--- NOTE | 2017-07-06 18:01 | ED Physician Documentation ---
PD HPI BACK INJURY - Stated complaint Stated Complaint: NECK INJ - History obtained from History obtained from: Patient - History of Present Illness Location: Other (He has chronic back pain, about a week ago he slipped on the snow and injured his neck and back and he has persistent pain without neurologic symptoms of the neck and low back. No other injuries with pain.) Review of Systems Constitutional: reports: Reviewed and negative Cardiac: reports: Reviewed and negative Respiratory: reports: Reviewed and negative PD PAST MEDICAL HISTORY - Past Medical History Past Medical History: Yes Cardiovascular: Hypertension, High cholesterol Neuro: None Psych: Depression, Anxiety, ADD/ADHD Musculoskeletal: Chronic back pain - Past Surgical History Past Surgical History: Yes - Present Medications Home Medications: Ambulatory Orders Medication Instructions Recorded Confirmed Atenolol 100 mg PO QPM 05/06/14 07/06/17 cloNIDine [Catapres] 0.1 tab PO QPM 05/06/14 07/06/17 Sertraline [Zoloft] 0 mg PO DAILY 12/18/16 07/06/17 Cyclobenzaprine [Flexeril] 10 mg PO TID PRN #30 tablet 05/25/17 07/06/17 Gabapentin 800 mg PO TID #20 tablet 05/25/17 07/06/17 predniSONE [Deltasone] 20 mg PO [id number] #21 tab 07/06/17 - Allergies Allergies/Adverse Reactions: Allergies Allergy/AdvReac Type Severity Reaction Status Date / Time droperidol AdvReac Unknown Verified 07/06/17 16:55 - Social History Does the pt smoke?: No Smoking Status: Never smoker Does the pt drink ETOH?: No Does the pt have substance abuse?: No - Immunizations Immunizations are current?: Yes - POLST Patient has POLST: No PD ED PE NORMAL - Vitals Vital signs reviewed: Yes - General General: Alert and oriented X 3, No acute distress - HEENT HEENT: PERRL, EOMI - Neck Neck: Other (Mild tenderness of the upper cervical spine, good range of motion, no deformity.) - Back Back: Other (Some tenderness of the mid lumbar spine without deformity or limited range of motion.) - Neuro Neuro: Alert and oriented X 3, Normal speech - Psych Psych: Normal mood, Normal affect Results - Vitals Vitals: Vital Signs - 24 hr 07/06/17 16:52 Temperature 36.3 C L Heart Rate 86 Respiratory 17 Rate Blood Pressure 153/93 H O2 Saturation 97 Oxygen O2 Source Room air - Rads (name of study) CT Cspine and LS XR Radiology: EMP read contemporaneously (CT of the C-spine is normal, chronic findings in the low back.) PD MEDICAL DECISION MAKING - ED course ED course: 47-year-old gentleman with chronic low back pain presents a week after a ground- level fall in the snow and has an exacerbation of low back pain and new neck pain. X-rays were negative for acute findings. He was given a Percocet here and a prepack. No previous concerns for drug-seeking behavior. He also requested steroids. Departure - Departure Disposition: 01 Home, Self Care Clinical Impression: Fall from ground level Injury of neck Qualifiers: Encounter type: initial encounter Qualified Code(s): S19.9XXA - Unspecified injury of neck, initial encounter Back pain Qualifiers: Back pain location: low back pain Chronicity: acute Back pain laterality: midline Sciatica presence: without sciatica Qualified Code(s): M54.5 - Low back pain Condition: Good Record reviewed to determine appropriate education?: Yes Instructions: ED Neck Back Pain General Prescriptions: predniSONE [Deltasone] 20 mg PO [id number] #21 tab Comments: Call your doctor to arrange a follow-up appointment, make the next available appointment. In the interim, return anytime if worse or if new symptoms develop. Your blood pressure was elevated today on check into the emergency department. This does not mean that you have hypertension, it is a common phenomenon to come to the emergency department and have elevated blood pressure. I recommend that you see your primary care physician within the week to have it rechecked when you are feeling better.
--- NOTE | 2017-07-06 18:49 | XRAY Report ---
EXAM: LUMBOSACRAL SPINE RADIOGRAPHY EXAM DATE: 07/06/2017 06:27 PM. CLINICAL HISTORY: Back inj. COMPARISONS: 06/15/2017. TECHNIQUE: 3 views. FINDINGS: Alignment: There is grade 1 spondylolisthesis at L5-S1. Alignment at other levels appears satisfactor y. Bones: Five bjk-iif-ydwwulw lumbar vertebral bodies are present. There are findings of L5 spondylolys is. Unchanged. Disks: There is mild disk height loss at L3-L4 and L4-L5. Facets: Satisfactory alignment. Sacroiliac Joints: Unremarkable. Soft Tissues: Normal. The visualized bowel gas pattern is normal. IMPRESSION: 1. Grade 1 spondylolisthesis at L5-S1 with L5 spondylolysis. 2. Mild degenerative disk disease at L3-L4 and L4-L5. [facility] Referring Provider Line: [phone] SITE ID: [id number]
--- NOTE | 2017-07-06 18:49 | XRAY Preliminary Report ---
Exam: XR LUMBAR SPINE 2 VIEW IMPRESSION: 1. Grade 1 spondylolisthesis at L5-S1 with L5 spondylolysis. 2. Mild degenerative disk disease at L3-L4 and L4-L5. [facility] SITE ID: [id number]
--- NOTE | 2017-07-06 19:24 | CT Report ---
EXAM: CT CERVICAL SPINE WITHOUT CONTRAST DATE: 07/06/2017 06:37 PM. HISTORY: Neck pain, injury. COMPARISONS: Cervical spine CT 12/09/2015. TECHNIQUE: Thin-section axial images were acquired of the cervical spine without contrast. Post-proce ssing: Coronal and sagittal reformats. Other: None. In accordance with CT protocol optimization, one or more of the following dose reduction techniques w ere utilized for this exam: automated exposure control, adjustment of mA and/or KV based on patient s ize, or use of iterative reconstructive technique. FINDINGS: Alignment: No scoliosis or spondylolisthesis. Bones: No evidence of fracture. Anterior plate and screw fixation at C7-T1 with intervertebral spacer . Interspace Levels/Facets: C1-C2: Unremarkable. C2-C3: Unremarkable. C3-C4: Unremarkable. C4-C5: Minimal osteophytes without significant stenosis. C5-C6: Minimal osteophytes without significant stenosis. C6-C7: Facet hypertrophy without significant stenosis. C7-T1: Status post anterior fusion with some facet hypertrophy and posterior osteophytes causing mild right foraminal stenosis. Other: The paravertebral and prevertebral soft tissues are unremarkable. The lung apices are clear. IMPRESSION: 1. No evidence of acute fracture with mild degenerative disk disease cervical spine. 2. Status post anterior fusion C7-T1. [facility] Referring Provider Line: [phone] SITE ID: [id number]
[2017-07-06] MEDS ORDERED: oxyCODONE/ACET 5/325 Prepack 4 PO STA (19:36)
[2017-07-06] MEDS ORDERED: predniSONE 20 MG TABLET PO STA (19:36)
== END 2017-07-06 19:51 | disposition home or self-care (01) ==
LOC: ED 16:40
DX: S19.9XXA Unspecified injury of neck, initial encounter (principal); W00.0XXA Fall on same level due to ice and snow, initial encounter; M54.5 Low back pain; G89.29 Other chronic pain; I10 Essential (primary) hypertension
CPT/HCPCS: 72100; 72125; 99283; A9270; J7512

== ENCOUNTER 2017-07-29 17:53 | Emergency (ER) | payer MEDICAID ==
--- NOTE | 2017-07-29 19:09 | ED Physician Documentation ---
History of Present Illness - Stated complaint Stated Complaint: BACK INJ - Chief complaint Chief Complaint: Back Pain - History obtained from History obtained from: Patient (pt is here for evaluation of falling back this AM and hitting his mid back on a dresser. no LOC. states that he now has LBP and tingling to his right leg.) Review of Systems Constitutional: denies: Fever, Chills Cardiac: denies: Chest pain / pressure GI: denies: Abdominal Pain, Nausea, Vomiting : denies: Dysuria, Hesitancy, Incontinent Skin: denies: Rash, Lesions, Laceration (s) Musculoskeletal: reports: Back pain, Extremity pain (left leg) Neurologic: reports: Other (tingling to left leg) PD PAST MEDICAL HISTORY - Past Medical History Cardiovascular: Hypertension, High cholesterol Neuro: None Psych: Depression, Anxiety, ADD/ADHD Musculoskeletal: Chronic back pain - Past Surgical History Past Surgical History: Yes - Present Medications Home Medications: Ambulatory Orders Medication Instructions Recorded Confirmed Atenolol 100 mg PO QPM 05/06/14 07/29/17 cloNIDine [Catapres] 0.1 tab PO QPM 05/06/14 07/29/17 Sertraline [Zoloft] 0 mg PO DAILY 12/18/16 07/29/17 Gabapentin 800 mg PO TID #20 tablet 05/25/17 07/29/17 Cyclobenzaprine [Flexeril] 10 mg PO TID PRN #20 tablet 07/29/17 Gabapentin 300 mg PO Q8HR #60 capsule 07/29/17 HYDROcod/ACETAM 5/325 [[place] 5/325] 1 each PO Q6H PRN #10 tablet 07/29/17 predniSONE [Prednisone] 40 mg PO DAILY #10 tablet 07/29/17 - Allergies Allergies/Adverse Reactions: Allergies Allergy/AdvReac Type Severity Reaction Status Date / Time droperidol AdvReac Unknown Verified 07/29/17 18:09 - Social History Does the pt smoke?: No Smoking Status: Never smoker Does the pt drink ETOH?: No Does the pt have substance abuse?: No - Immunizations Immunizations are current?: Yes - POLST Patient has POLST: No PD ED PE NORMAL - Vitals Vital signs reviewed: Yes - General General: Alert and oriented X 3, No acute distress - HEENT HEENT: Moist mucous membranes - Cardiac Cardiac: RRR - Respiratory Respiratory: No respiratory distress, Clear bilaterally - Abdomen Abdomen: Normal bowel sounds - Back Back: No CVA TTP, No spinal TTP, Other (no bruising to back ) - Derm Derm: Normal color, No rash - Extremities Extremities: No deformity, No edema - Neuro Neuro: Alert and oriented X 3, No motor deficit Eye Opening: Spontaneous Motor: Obeys Commands Verbal: Oriented GCS Score: 15 - Psych Psych: Normal mood, Normal affect Results - Vitals Vitals: Vital Signs - 24 hr 07/29/17 18:07 Temperature 36.3 C L Heart Rate 81 Respiratory 120 H Rate Blood Pressure 138/79 H O2 Saturation 96 Oxygen O2 Source Room air PD MEDICAL DECISION MAKING - ED course Complexity details: d/w patient ED course: pt with a benign exam. has left sided symptoms, no red flag sx for fracture, CA, mets or other emergent issues. will refill some of his meds. will provide symptom treatment. pt given return precautions. Departure - Departure Disposition: Home, Self Care Clinical Impression: Radicular low back pain Condition: Good Instructions: ED Low Back Pain Injury, ED Chronic Pain Management Follow-Up: primary , care provider [Other] Prescriptions: Gabapentin 300 mg PO Q8HR #60 capsule Cyclobenzaprine [Flexeril] 10 mg PO TID PRN #20 tablet PRN Reason: Spasms HYDROcod/ACETAM 5/325 [[place] 5/325] 1 each PO Q6H PRN #10 tablet PRN Reason: Pain predniSONE [Prednisone] 40 mg PO DAILY #10 tablet Comments: Follow up with your primary care provider. Return to the ER for any new or worsening symptoms.
[2017-07-29 19:28] VITALS: BP 109/75
== END 2017-07-29 19:27 | disposition home or self-care (01) ==
LOC: ED 17:53
DX: M54.16 Radiculopathy, lumbar region (principal); I10 Essential (primary) hypertension; E78.00 Pure hypercholesterolemia, unspecified; Z91.81 History of falling
CPT/HCPCS: 99283

== ENCOUNTER 2017-08-10 17:07 | Emergency (ER) | payer MEDICAID ==
[2017-08-10 18:06] LABS: ALBUMIN 4.4 g/dL (3.2-5.5); ALBUMIN/GLOBULIN RATIO 1.4 (1.0-2.2); BILIRUBIN,TOTAL 0.5 mg/dL (0.2-1.0); CALCIUM 8.9 mg/dL (8.5-10.3); CREATININE 1.3 mg/dL (0.6-1.2); TOTAL PROTEIN 7.5 g/dL (6.7-8.2)
[2017-08-10 18:14] LABS: BASOPHILS % (AUTO) 0.7 %; EOSINOPHILS # (AUTO) 0.1 10^3/uL (0.0-0.7); EOSINOPHILS % (AUTO) 1.1 %; HGB - HEMOGLOBIN 14.4 g/dL (14.0-18.0); LYMPHOCYTES # (AUTO) 0.8 10^3/uL (1.5-3.5); LYMPHOCYTES % (AUTO) 15.5 %; MEAN CORPUSCULAR HEMOGLOBIN 29.5 pg (27.0-31.0); MEAN CORPUSCULAR HGB CONC 33.6 g/dL (32.0-36.0); MEAN CORPUSCULAR VOLUME 87.6 fL (80.0-94.0); MEAN PLATELET VOLUME 8.2 fL (7.4-11.4); MONOCYTES # (AUTO) 0.7 10^3/uL (0.0-1.0); MONOCYTES % (AUTO) 12.9 %; NEUTROPHILS # (AUTO) 3.7 10^3/uL (1.5-6.6); NEUTROPHILS % (AUTO) 69.8 %; PLT - PLATELET COUNT 139 10^3/uL (130-450); RED BLOOD COUNT 4.88 10^6/uL (4.70-6.10); RED CELL DISTRIBUTION WIDTH 12.6 % (12.0-15.0); WHITE BLOOD COUNT 5.3 x10^3/uL (4.8-10.8)
--- NOTE | 2017-08-10 19:32 | ED Physician Documentation ---
History of Present Illness - Stated complaint Stated Complaint: SOA,ASTHMA - Chief complaint Chief Complaint: Exposure - History obtained from History obtained from: Patient - History of Present Illness Timing: Yesterday (he was cleaning out garage area with cat litter, smell of cat urine, dust and some sawdut. he was looking for 4 bolts that had been on the floor when ti got swept up. It took him extended time to find the bolts. So breathing in the odor for at least 20 minutes.) Review of Systems Ten Systems: 10 systems reviewed and negative Constitutional: denies: Fever, Chills Nose: reports: Congestion. denies: Rhinorrhea / runny nose Throat: denies: Sore throat Cardiac: denies: Chest pain / pressure, Palpitations, Pedal edema, Calf pain Respiratory: reports: Dyspnea, Wheezing. denies: Cough GI: denies: Abdominal Pain, Nausea, Vomiting Skin: denies: Rash, Lesions PD PAST MEDICAL HISTORY - Past Medical History Past Medical History: Yes Cardiovascular: Hypertension, High cholesterol Neuro: None Psych: Depression, Anxiety, ADD/ADHD Musculoskeletal: Chronic back pain - Past Surgical History Past Surgical History: Yes - Present Medications Home Medications: Ambulatory Orders Medication Instructions Recorded Confirmed Atenolol 100 mg PO QPM 05/06/14 08/10/17 cloNIDine [Catapres] 0.1 tab PO QPM 05/06/14 08/10/17 Sertraline [Zoloft] 0 mg PO DAILY 12/18/16 08/10/17 Gabapentin 800 mg PO TID #20 tablet 05/25/17 08/10/17 Cyclobenzaprine [Flexeril] 10 mg PO TID PRN #20 tablet 07/29/17 08/10/17 Gabapentin 300 mg PO Q8HR #60 capsule 07/29/17 08/10/17 Albuterol Sulf [Ventolin Hfa 1 - 2 puffs INH Q4HR PRN #1 inhaler 08/10/17 Inhaler] Benzonatate [Tessalon] 100 mg PO TID PRN #20 capsule 08/10/17 Dexamethasone [Decadron] 4 mg PO DAILY #5 tablet 08/10/17 HYDROcod/ACETAM 5/325 [[place] 5/325] 1 tab PO Q6H PRN #15 tablet 08/10/17 - Allergies Allergies/Adverse Reactions: Allergies Allergy/AdvReac Type Severity Reaction Status Date / Time droperidol AdvReac Unknown Verified 08/10/17 17:13 - Social History Does the pt smoke?: No Smoking Status: Never smoker Does the pt drink ETOH?: No Does the pt have substance abuse?: No - Immunizations Immunizations are current?: Yes - POLST Patient has POLST: No PD ED PE NORMAL - Vitals Vital signs reviewed: Yes - General General: Alert and oriented X 3, No acute distress, Well developed/nourished - HEENT HEENT: PERRL, Ears normal, Pharynx benign - Neck Neck: Supple, no meningeal sign, No adenopathy - Cardiac Cardiac: RRR, No murmur - Respiratory Respiratory: Clear bilaterally - Abdomen Abdomen: Soft, Non tender - Male Male : Deferred - Rectal Rectal: Deferred - Back Back: No CVA TTP - Derm Derm: Normal color, Warm and dry, No rash - Extremities Extremities: No tenderness to palpate, Normal ROM s pain, No edema, No calf tenderness / cord - Neuro Neuro: Alert and oriented X 3, No motor deficit, Normal speech Motor: Withdraws to Pain Results - Vitals Vitals: Oxygen O2 Source Room air - EKG (time done) 17:23 Rate: Rate (enter#) (87) Rhythm: NSR [place]: Normal Intervals: Normal [place] QRS: Normal Ischemia: Normal ST segments, Non specific changes (flattening t wasves laterally V leads. ). No: ST elevation c/w ischemia, ST depression - Labs Labs: Laboratory Tests 08/10/17 08/10/17 08/10/17 17:48 17:48 17:48 WBC 5.3 RBC 4.88 Hgb 14.4 Hct 42.7 MCV 87.6 MCH 29.5 MCHC 33.6 RDW 12.6 Plt Count 139 MPV 8.2 Neut # 3.7 Lymph # 0.8 L [place] # 0.7 Eos # 0.1 Baso # 0.0 Absolute Nucleated RBC 0.01 Nucleated RBC % 0.1 Sodium 135 Potassium 3.7 Chloride 98 L Carbon Dioxide 25 Anion Gap 12.0 BUN 13 Creatinine 1.3 H Estimated GFR (MDRD) 59 L Glucose 152 H Calcium 8.9 Total Bilirubin 0.5 AST 120 H ALT 107 H Alkaline Phosphatase 65 Troponin I < 0.04 B-Natriuretic Peptide Total Protein 7.5 Albumin 4.4 Globulin 3.1 Albumin/Globulin Ratio 1.4 Lipase 21 L 08/10/17 17:48 WBC RBC Hgb Hct MCV MCH MCHC RDW Plt Count MPV Neut # Lymph # [place] # Eos # Baso # Absolute Nucleated RBC Nucleated RBC % Sodium Potassium Chloride Carbon Dioxide Anion Gap BUN Creatinine Estimated GFR (MDRD) Glucose Calcium Total Bilirubin AST ALT Alkaline Phosphatase Troponin I B-Natriuretic Peptide 43 Total Protein Albumin Globulin Albumin/Globulin Ratio Lipase PD MEDICAL DECISION MAKING - ED course Complexity details: reviewed results, considered differential (he feels his asthma worsened/flared when he was cleaning out some sawdust and cat litter remains looking for a few metal bolts that had been on the floor and got thrown away by [employer]. He says strong smell of ammonia (cat urine) and was darlene. ), d/w patient Departure - Departure Disposition: 01 Home, Self Care Clinical Impression: Acute chemical pneumonitis Dyspnea Qualifiers: Dyspnea type: shortness of breath Qualified Code(s): R06.02 - Shortness of breath Chest pain Qualifiers: Chest pain type: chest pain on breathing Qualified Code(s): R07.1 - Chest pain on breathing Condition: Stable Record reviewed to determine appropriate education?: Yes Instructions: ED Dyspnea Shortness of Breath Prescriptions: Albuterol Sulf [Ventolin Hfa Inhaler] 1 - 2 puffs INH Q4HR PRN #1 inhaler PRN Reason: Shortness Of Air/Wheezing Benzonatate [Tessalon] 100 mg PO TID PRN #20 capsule PRN Reason: Cough Dexamethasone [Decadron] 4 mg PO DAILY #5 tablet HYDROcod/ACETAM 5/325 [[place] 5/325] 1 tab PO Q6H PRN #15 tablet PRN Reason: Pain Comments: No signs of pneumonia, fluid in the lungs, heart attack or heart failure. The chemicals smell of the Urine from the cat and dust caused irritation in the breathing passages. This should improve over a few days. Use an albuterol inhaler 2 puffs 4 times a day for the next several days to week. Add more times if needed. Use Decadron for inflammation of the airways daily for 5 more days. Add Tessalon if needed for cough and hydrocodone if needed for pains. Recheck if not better over the next several days return sooner if worse. Discharge Date/Time: 08/10/17 21:22
[2017-08-10] MEDS ORDERED: CETIRIZINE 10 MG TABLET PO STA (19:43)
[2017-08-10] MEDS ORDERED: DEXAMETHASONE 10 MG/ML VIAL PO STA (19:43)
[2017-08-10] MEDS ORDERED: ALBUTEROL NEB 2.5 MG/3 ML INH STA (19:43)
--- NOTE | 2017-08-10 20:21 | XRAY Report ---
EXAM: CHEST RADIOGRAPHY EXAM DATE: 08/10/2017 08:09 PM. CLINICAL HISTORY: Chest pain, left sided. COMPARISON: 03/18/2017. TECHNIQUE: 2 views. FINDINGS: Lungs/Pleura: No focal opacities evident. No pleural effusion. No pneumothorax. Normal volumes. Mediastinum: Heart and mediastinal contours are unremarkable. Other: Stable anterior C7-T1 fusion. IMPRESSION: Normal 2-view chest radiography. [facility] Referring Provider Line: [phone] SITE ID: [id number]
[2017-08-10] MEDS ORDERED: HYDROcod/ACET 5/325 Prepack 6 PO STA (21:00)
[2017-08-10] MEDS ORDERED: KETOROLAC 60 MG/2 ML VIAL IVP STA (21:00)
[2017-08-10] MEDS ORDERED: HYDROcod/ACETAM 5/325 MG TABLET PO STA (21:00)
[2017-08-10 21:06] VITALS: BP 126/80
== END 2017-08-10 21:22 | disposition home or self-care (01) ==
LOC: ED 17:07
DX: J68.0 Bronchitis and pneumonitis due to chemicals, gases, fumes and vapors (principal); R07.1 Chest pain on breathing; I45.81 Long QT syndrome; I10 Essential (primary) hypertension; E78.00 Pure hypercholesterolemia, unspecified
CPT/HCPCS: 36415; 71046; 80053; 83690; 83880; 84484; 85025; 93005; 94640; 96374; 99283; 99285; A9270; J7613

== ENCOUNTER 2017-08-15 13:30 | Emergency (ER) | payer MEDICAID ==
[2017-08-15] MEDS ORDERED: predniSONE 20 MG TABLET PO STA (13:54)
[2017-08-15] MEDS ORDERED: IPRATROPIUM/ALBUTEROL 3 ML NEB INH STA (13:54)
[2017-08-15 14:06] LABS: BASOPHILS # (AUTO) 0.1 10^3/uL (0.0-0.1); BASOPHILS % (AUTO) 0.8 %; EOSINOPHILS # (AUTO) 0.1 10^3/uL (0.0-0.7); EOSINOPHILS % (AUTO) 1.9 %; HGB - HEMOGLOBIN 17.2 g/dL (14.0-18.0); LYMPHOCYTES # (AUTO) 1.8 10^3/uL (1.5-3.5); LYMPHOCYTES % (AUTO) 26.4 %; MEAN CORPUSCULAR HEMOGLOBIN 29.4 pg (27.0-31.0); MEAN CORPUSCULAR HGB CONC 34.1 g/dL (32.0-36.0); MEAN CORPUSCULAR VOLUME 86.2 fL (80.0-94.0); MEAN PLATELET VOLUME 8.3 fL (7.4-11.4); MONOCYTES # (AUTO) 0.6 10^3/uL (0.0-1.0); MONOCYTES % (AUTO) 8.4 %; NEUTROPHILS # (AUTO) 4.3 10^3/uL (1.5-6.6); NEUTROPHILS % (AUTO) 62.5 %; PLT - PLATELET COUNT 125 10^3/uL (130-450); RED BLOOD COUNT 5.85 10^6/uL (4.70-6.10); RED CELL DISTRIBUTION WIDTH 12.5 % (12.0-15.0); WHITE BLOOD COUNT 6.9 x10^3/uL (4.8-10.8)
--- NOTE | 2017-08-15 14:10 | ED Physician Documentation ---
PD HPI URI - Stated complaint Stated Complaint: CHEST PX/DIFFICULTY BREATHING - Chief complaint Chief Complaint: Cardiac - History obtained from History obtained from: Patient - History of Present Illness Timing - onset: How many weeks ago (1) Timing duration: Weeks (1) Timing details: Gradual onset Pain level max: 5 Pain level now: 5 Associated symptoms: Fever, Chills, Sweats, Nasal congestion, Rhinorrhea, Dry cough, Dyspnea (wheezing). No: Sinus pain, Sore throat, Hemoptysis, Chest pain Contributing factors: Sick contact Improves by: Rest, Medication Worsened by: Activity Similar symptoms before: Diagnosis (URI with wheezing) Recently seen: Emergency Dept (1 week ago) - Additional information Additional information: Patient was seen here a week ago and diagnosed with airway inflammation, prescribed an inhaler which he is only used once or twice. Also prescribe steroids but was not taking this. Review of Systems Ten Systems: 10 systems reviewed and negative Constitutional: reports: Fever (subjective), Chills Ears: denies: Ear pain Throat: denies: Sore throat GI: denies: Nausea, Vomiting, Diarrhea Skin: denies: Rash Musculoskeletal: denies: Neck pain, Back pain Neurologic: denies: Headache PD PAST MEDICAL HISTORY - Past Medical History Past Medical History: Yes Cardiovascular: Hypertension, High cholesterol Neuro: None Psych: Depression, Anxiety, ADD/ADHD Musculoskeletal: Chronic back pain - Past Surgical History Past Surgical History: Yes - Present Medications Home Medications: Ambulatory Orders Medication Instructions Recorded Confirmed Atenolol 100 mg PO QPM 05/06/14 08/10/17 cloNIDine [Catapres] 0.1 tab PO QPM 05/06/14 08/10/17 Sertraline [Zoloft] 0 mg PO DAILY 12/18/16 08/10/17 Gabapentin 800 mg PO TID #20 tablet 05/25/17 08/10/17 Cyclobenzaprine [Flexeril] 10 mg PO TID PRN #20 tablet 07/29/17 08/10/17 Gabapentin 300 mg PO Q8HR #60 capsule 07/29/17 08/10/17 Albuterol Sulf [Ventolin Hfa 1 - 2 puffs INH Q4HR PRN #1 inhaler 08/10/17 Inhaler] Benzonatate [Tessalon] 100 mg PO TID PRN #20 capsule 08/10/17 Dexamethasone [Decadron] 4 mg PO DAILY #5 tablet 08/10/17 HYDROcod/ACETAM 5/325 [[place] 5/325] 1 tab PO Q6H PRN #15 tablet 08/10/17 Hydrocodone/Chlorphen P-Stirex 5 ml PO BID PRN #90 ml 08/15/17 [Hydrocodone-Chlorphen ER Susp] predniSONE [Prednisone] 40 mg PO DAILY #10 tablet 08/15/17 - Allergies Allergies/Adverse Reactions: Allergies Allergy/AdvReac Type Severity Reaction Status Date / Time droperidol AdvReac Unknown Verified 08/10/17 17:13 - Social History Does the pt smoke?: No Smoking Status: Never smoker Does the pt drink ETOH?: No Does the pt have substance abuse?: No - Immunizations Immunizations are current?: Yes - POLST Patient has POLST: No PD ED PE NORMAL - Vitals Vital signs reviewed: Yes - General General: Alert and oriented X 3, No acute distress, Well developed/nourished - HEENT HEENT: PERRL, Ears normal, Moist mucous membranes, Pharynx benign - Neck Neck: Supple, no meningeal sign - Cardiac Cardiac: RRR - Respiratory Respiratory: No respiratory distress, Other (wheezing B) - Abdomen Abdomen: Soft, Non tender, Non distended - Derm Derm: Warm and dry - Neuro Neuro: Alert and oriented X 3 - Psych Psych: Normal mood, Normal affect Results - Vitals Vitals: Vital Signs - 24 hr 08/15/17 08/15/17 08/15/17 13:36 13:40 14:14 Temperature 35.5 C L Heart Rate 117 H 110 H Respiratory 18 18 Rate Blood Pressure 186/114 H O2 Saturation 97 08/15/17 08/15/17 08/15/17 15:47 16:03 16:43 Temperature Heart Rate 116 H 111 H 110 H Respiratory 16 12 16 Rate Blood Pressure 151/99 H 146/80 H O2 Saturation 97 96 Oxygen O2 Source Room air - EKG (time done) 1336 Rate: Rate (enter#) (109) Rhythm: Sinus tachycardia [place]: Normal Intervals: Normal [place] QRS: Normal Ischemia: Non specific changes - Labs Labs: Laboratory Tests 08/15/17 08/15/17 08/15/17 13:55 13:55 13:55 WBC 6.9 RBC 5.85 Hgb 17.2 Hct 50.4 MCV 86.2 MCH 29.4 MCHC 34.1 RDW 12.5 Plt Count 125 L MPV 8.3 Neut # 4.3 Lymph # 1.8 Hand # 0.6 Eos # 0.1 Baso # 0.1 Absolute Nucleated RBC 0.00 Nucleated RBC % 0.1 Sodium 138 Potassium 3.8 Chloride 97 L Carbon Dioxide 24 Anion Gap 17.0 H BUN 16 Creatinine 1.1 Estimated GFR (MDRD) 71 L Glucose 196 H Calcium 9.4 Total Bilirubin 0.6 AST 67 H ALT 92 H Alkaline Phosphatase 77 Troponin I < 0.04 Total Protein 8.2 Albumin 4.4 Globulin 3.8 Albumin/Globulin Ratio 1.2 Lipase 20 L Influenza A (Rapid) Influenza B (Rapid) Influenza Types A,B Ag 08/15/17 15:00 WBC RBC Hgb Hct MCV MCH MCHC RDW Plt Count MPV Neut # Lymph # Hand # Eos # Baso # Absolute Nucleated RBC Nucleated RBC % Sodium Potassium Chloride Carbon Dioxide Anion Gap BUN Creatinine Estimated GFR (MDRD) Glucose Calcium Total Bilirubin AST ALT Alkaline Phosphatase Troponin I Total Protein Albumin Globulin Albumin/Globulin Ratio Lipase Influenza A (Rapid) Negative Influenza B (Rapid) Negative Influenza Types A,B Ag - - Rads (name of study) cxr Radiology: Prelim report reviewed, EMP read contemporaneously, See rad report ( no acute disease) PD MEDICAL DECISION MAKING - ED course Complexity details: reviewed old records, reviewed results, re-evaluated patient , considered differential (No ST elevation [place], no aortic dissection, no PE, no tension pneumothorax, no aortic aneurysm), d/w patient ED course: Patient is a 47-year-old male who presents to the emergency department with what appears to be a viral upper respiratory infection with wheezing. Feels much better after nebulizer treatment and steroids. Breathing much easier. No hypoxia. No pneumonia. No evidence of pulmonary embolus. Will continue supportive care and follow-up with his doctor. Patient counseled regarding signs and symptoms for which I believe and urgent re-evaluation would be necessary. Patient with good understanding of and agreement to plan and is comfortable going home at this time This document was made in part using voice recognition software. While efforts are made to proofread this document, sound alike and grammatical errors may occur. Departure - Departure Disposition: 01 Home, Self Care Clinical Impression: Viral URI Condition: Good Instructions: ED Viral Syndrome Follow-Up: Chad Adams MD [Primary Care Provider] - Within 1 week Prescriptions: Hydrocodone/Chlorphen P-Stirex [Hydrocodone-Chlorphen ER Susp] 5 ml PO BID PRN # 90 ml PRN Reason: Cough predniSONE [Prednisone] 40 mg PO DAILY #10 tablet Comments: Use the inhaler every 2-3 hours at home. Continue the steroids. Do not drive or operate heavy machinery while taking the Tussionex. Do not drink alcohol or drive while on narcotic pain medicine. Note that many narcotic pain relievers also contain tylenol/acetaminophen. Please ensure that your total dose of acetaminophen from all sources does not exceed 3 grams (3000mg) per day. You may constipated on this medication, take a stool softener such as "Colace" twice a day while you are on it. Also recommend a nimu-fdz-rppeiem laxative such as senna or MiraLAX any day that you do not have a bowel movement. If you received narcotic pain medication in the emergency department, do not drive or operate machinery for the next 24 hours. Discharge Date/Time: 08/15/17 16:44
[2017-08-15 14:21] LABS: ALBUMIN 4.4 g/dL (3.2-5.5); ALBUMIN/GLOBULIN RATIO 1.2 (1.0-2.2); BILIRUBIN,TOTAL 0.6 mg/dL (0.2-1.0); CALCIUM 9.4 mg/dL (8.5-10.3); CREATININE 1.1 mg/dL (0.6-1.2); TOTAL PROTEIN 8.2 g/dL (6.7-8.2)
--- NOTE | 2017-08-15 15:19 | XRAY Report ---
EXAM: CHEST RADIOGRAPHY EXAM DATE: 08/15/2017 02:48 PM. CLINICAL HISTORY: Cough, fever. COMPARISON: Chest x-ray 08/10/2017. TECHNIQUE: 2 views. FINDINGS: Lungs/Pleura: No focal opacities evident. No pleural effusion. No pneumothorax. Normal volumes. Mediastinum: Heart and mediastinal contours are unremarkable. Other: Status post cervicothoracic junction surgery. IMPRESSION: No acute pulmonary consolidation or significant interval change compared to the prior lubna HANNA Referring Provider Line: [phone] SITE ID: [id number]
[2017-08-15] MEDS ORDERED: ALBUTEROL NEB 2.5 MG/3 ML INH STA (15:45)
[2017-08-15 16:44] VITALS: BP 146/80
== END 2017-08-15 16:44 | disposition home or self-care (01) ==
LOC: ED 13:30
DX: J06.9 Acute upper respiratory infection, unspecified (principal); B97.89 Other viral agents as the cause of diseases classified elsewhere; I10 Essential (primary) hypertension; E78.00 Pure hypercholesterolemia, unspecified
CPT/HCPCS: 36415; 71046; 80053; 83690; 84484; 85025; 87275; 87276; 93005; 94640; 94664; 99283; 99284; J7512; J7613; J7620

== ENCOUNTER 2017-08-24 17:38 | Outpatient (CLI) | payer MEDICAID ==
[2017-08-24 12:55] LABS: BASOPHILS # (AUTO) 0.1 10^3/uL (0.0-0.1); BASOPHILS % (AUTO) 0.8 %; EOSINOPHILS # (AUTO) 0.2 10^3/uL (0.0-0.7); EOSINOPHILS % (AUTO) 2.3 %; HGB - HEMOGLOBIN 15.9 g/dL (14.0-18.0); LYMPHOCYTES % (AUTO) 21.8 %; MEAN CORPUSCULAR HEMOGLOBIN 29.6 pg (27.0-31.0); MEAN CORPUSCULAR VOLUME 87.2 fL (80.0-94.0); MEAN PLATELET VOLUME 8.8 fL (7.4-11.4); MONOCYTES # (AUTO) 0.7 10^3/uL (0.0-1.0); MONOCYTES % (AUTO) 7.4 %; NEUTROPHILS # (AUTO) 6.1 10^3/uL (1.5-6.6); NEUTROPHILS % (AUTO) 67.7 %; PLT - PLATELET COUNT 225 10^3/uL (130-450); RED BLOOD COUNT 5.36 10^6/uL (4.70-6.10); RED CELL DISTRIBUTION WIDTH 12.5 % (12.0-15.0)
[2017-08-24 13:17] LABS: ALBUMIN 4.3 g/dL (3.2-5.5); ALBUMIN/GLOBULIN RATIO 1.3 (1.0-2.2); ALKALINE PHOSPHATASE 69 IU/L (42-121); ALT ALANINE AMINOTRANSFERASE 75 IU/L (10-60); AST ASPARTATE AMINOTRANSFERASE 52 IU/L (10-42); BILIRUBIN,TOTAL 0.6 mg/dL (0.2-1.0); BUN - BLOOD UREA NITROGEN 17 mg/dL (6-20); CALCIUM 9.3 mg/dL (8.5-10.3); CARBON DIOXIDE - CO2 28 mmol/L (21-32); CHLORIDE 97 mmol/L (101-111); CHOL/HDL RATIO 10.4 (<5.0); CHOLESTEROL 383 mg/dL; CREATININE 1.2 mg/dL (0.6-1.2); GFR - MDRD 64 (>89); GLUCOSE 193 mg/dL (70-100); HDL CHOLESTEROL 37 mg/dL; SODIUM 135 mmol/L (135-145); TOTAL PROTEIN 7.7 g/dL (6.7-8.2)
[2017-08-24 14:30] LABS: LDL CHOLESTEROL,DIRECT 235 mg/dL; LDLD/HDL RATIO 6.4 (<3.6)
== END 2017-08-24 17:39 | disposition home or self-care (01) ==
LOC: LAB.N 17:38
PROVIDERS: ATTEND Family Medicine
DX: E66.9 Obesity, unspecified (principal); F33.0 Major depressive disorder, recurrent, mild; I10 Essential (primary) hypertension
CPT/HCPCS: 36415; 80053; 80061; 83721; 84443; 85025

== ENCOUNTER 2017-08-25 11:25 | Outpatient (CLI) | payer MEDICAID ==
[2017-08-25 19:18] LABS: CALCIUM 8.6 mg/dL (8.5-10.3); CREATININE 1.1 mg/dL (0.6-1.2)
[2017-08-25 19:21] LABS: HB2 TOTAL 15.5 g/dL; HEMOGLOBIN A1C 1.18 g/dL; HEMOGLOBIN A1C % 9.1 % (4.6-6.2)
== END 2017-08-25 11:26 | disposition home or self-care (01) ==
LOC: LAB.N 11:25
PROVIDERS: ATTEND Family Medicine
DX: R73.01 Impaired fasting glucose (principal)
CPT/HCPCS: 36415; 80048; 83036

== ENCOUNTER 2017-09-02 15:08 | Observation (INO) | payer MEDICAID ==
[2017-09-02] MEDS ORDERED: ASPIRIN CHEW 81 MG TABLET PO STA (15:28)
--- NOTE | 2017-09-02 15:32 | ED Physician Documentation ---
History of Present Illness - Stated complaint Stated Complaint: CHEST/BACK PX - Chief complaint Chief Complaint: Cardiac - Additonal information Additional information: hx from pt 47 male pmhx HTN and HLD and recently dx with type 2 DM as well to ER today with chest pressure X 2 days presently mod in severity denies soa NV diaphoresis he also has back pain, lower back, this is not new, he has been worked up and is actually planning to get surgery on his L-S spine but that is on hold because his preop work up showed he has DM in addition to HTN and HLD pt has been seen in the ER numerous times over the last 6 months 03/22 he was here for CP and SOA and had a nl EKG and neg trop X 2 and a neg CTA and was dced home he was seen several times for back pain then 08/10 he was seen for SOA and has a slightly abn EKG (flat T waves) and neg trop the 08/15 again for SOA and EKG also had some ST depressions and trop was neg and then again today pt reports having a cardiac work up in [facility] about 5 yr ago that was neg Review of Systems Constitutional: denies: Fever, Chills Cardiac: reports: Chest pain / pressure Respiratory: denies: Dyspnea, Cough GI: denies: Abdominal Pain, Nausea, Vomiting Musculoskeletal: reports: Back pain (not new but worse) Endocrine: denies: Easy bruising / bleeding Immunocompromised: denies: Immunocompromised PD PAST MEDICAL HISTORY - Past Medical History Cardiovascular: Hypertension, High cholesterol Neuro: None Psych: Depression, Anxiety, ADD/ADHD Musculoskeletal: Chronic back pain - Past Surgical History Past Surgical History: Yes - Present Medications Home Medications: Ambulatory Orders Medication Instructions Recorded Confirmed Atenolol 100 mg PO QPM 05/06/14 08/10/17 cloNIDine [Catapres] 0.1 tab PO QPM 05/06/14 08/10/17 Sertraline [Zoloft] 0 mg PO DAILY 12/18/16 08/10/17 Gabapentin 800 mg PO TID #20 tablet 05/25/17 08/10/17 Cyclobenzaprine [Flexeril] 10 mg PO TID PRN #20 tablet 07/29/17 08/10/17 Gabapentin 300 mg PO Q8HR #60 capsule 07/29/17 08/10/17 Albuterol Sulf [Ventolin Hfa 1 - 2 puffs INH Q4HR PRN #1 inhaler 08/10/17 Inhaler] Benzonatate [Tessalon] 100 mg PO TID PRN #20 capsule 08/10/17 Dexamethasone [Decadron] 4 mg PO DAILY #5 tablet 08/10/17 HYDROcod/ACETAM 5/325 [[place] 5/325] 1 tab PO Q6H PRN #15 tablet 08/10/17 Hydrocodone/Chlorphen P-Stirex 5 ml PO BID PRN #90 ml 08/15/17 [Hydrocodone-Chlorphen ER Susp] predniSONE [Prednisone] 40 mg PO DAILY #10 tablet 08/15/17 - Allergies Allergies/Adverse Reactions: Allergies Allergy/AdvReac Type Severity Reaction Status Date / Time droperidol AdvReac Unknown Verified 08/10/17 17:13 - Social History Does the pt smoke?: No Smoking Status: Never smoker Does the pt drink ETOH?: No Does the pt have substance abuse?: No - Immunizations Immunizations are current?: Yes - POLST Patient has POLST: No PD ED PE NORMAL - Vitals Vital signs reviewed: Yes - Neck Neck: Supple, no meningeal sign - Cardiac Cardiac: RRR - Respiratory Respiratory: No respiratory distress, Clear bilaterally - Abdomen Abdomen: Soft, Non tender, Other (no pulsatile mass) - Back Back: No spinal TTP (no focal spine TTP redness or swelling) - Derm Derm: Normal color - Neuro Neuro: Alert and oriented X 3, No motor deficit, No sensory deficit Results - Vitals Vitals: Vital Signs - 24 hr 09/02/17 09/02/17 09/02/17 15:14 15:45 15:50 Temperature 36.4 C L Heart Rate 113 H 105 H 113 H Respiratory 20 25 H 20 Rate Blood Pressure 157/117 H 130/83 H O2 Saturation 98 98 95 09/02/17 09/02/17 09/02/17 15:58 16:06 16:35 Temperature Heart Rate 121 H 112 H 100 Respiratory 16 12 18 Rate Blood Pressure 141/80 H 134/82 H 134/88 H O2 Saturation 95 95 96 09/02/17 09/02/17 09/02/17 17:09 17:55 18:37 Temperature Heart Rate 102 H 101 H 108 H Respiratory 18 20 16 Rate Blood Pressure 132/76 H 121/91 H 129/82 H O2 Saturation 96 95 93 Oxygen O2 Source Room air - EKG (time done) 1515 Rate: Rate (enter#) (111) Rhythm: Sinus tachycardia Intervals: Wide QRS Ischemia: Other (diffuse ST depression and lateral TWI worse than prior EKGs and suggesting ischemia) - Labs Labs: Laboratory Tests 09/02/17 09/02/17 09/02/17 15:29 15:29 15:29 WBC 9.3 RBC 5.46 Hgb 16.1 Hct 47.4 MCV 86.8 MCH 29.4 MCHC 33.9 RDW 12.7 Plt Count 201 MPV 8.2 Neut # 6.1 Lymph # 2.0 [place] # 1.0 Eos # 0.2 Baso # 0.1 Absolute Nucleated RBC 0.00 Nucleated RBC % 0.0 D-Dimer < 200.0 L Sodium 135 Potassium 3.6 Chloride 98 L Carbon Dioxide 25 Anion Gap 12.0 BUN 15 Creatinine 1.2 Estimated GFR (MDRD) 64 L Glucose 182 H Calcium 9.9 Total Bilirubin 0.5 AST 62 H ALT 71 H Alkaline Phosphatase 71 Troponin I Total Protein 7.9 Albumin 4.5 Globulin 3.4 Albumin/Globulin Ratio 1.3 Lipase 22 09/02/17 15:29 WBC RBC Hgb Hct MCV MCH MCHC RDW Plt Count MPV Neut # Lymph # [place] # Eos # Baso # Absolute Nucleated RBC Nucleated RBC % D-Dimer Sodium Potassium Chloride Carbon Dioxide Anion Gap BUN Creatinine Estimated GFR (MDRD) Glucose Calcium Total Bilirubin AST ALT Alkaline Phosphatase Troponin I < 0.04 Total Protein Albumin Globulin Albumin/Globulin Ratio Lipase - Rads (name of study) CXR Radiology: See rad report (neg) CTA chest abd pelvis Radiology: See rad report (no aneurysm, no dissection, no PE, no lung dz) PD MEDICAL DECISION MAKING - ED course ED course: chest pain with EKG changes but not STEMI CTA neg (high BP chest pain back pain) suprisinlgly trop is neg had planned ton transfer pt for ACS but given neg trop so far feel could keep pt at [facility] for echo stress etc pt given asa and nitro and morphien - better then returned - gave nitro paste and another dose of morhine no BB 2/2 clonidine paged hospitalist at 1725 d/w hospitalist at 1810 Departure - Departure Disposition: ED Place in Observation Clinical Impression: Abnormal EKG Chest pain Qualifiers: Chest pain type: unspecified Qualified Code(s): R07.9 - Chest pain, unspecified Chronic back pain Qualifiers: Back pain location: back pain in unspecified location Back pain laterality: unspecified Qualified Code(s): M54.9 - Dorsalgia, unspecified; G89.29 - Other chronic pain; G89.29 - Other chronic pain
[2017-09-02] MEDS: NITROGLYCERIN SL 0.4 MG TABLET SL STA ×3 (15:39→16:08)
[2017-09-02 15:40] LABS: BASOPHILS # (AUTO) 0.1 10^3/uL (0.0-0.1); EOSINOPHILS # (AUTO) 0.2 10^3/uL (0.0-0.7); EOSINOPHILS % (AUTO) 1.9 %; HGB - HEMOGLOBIN 16.1 g/dL (14.0-18.0); LYMPHOCYTES % (AUTO) 21.2 %; MEAN CORPUSCULAR HEMOGLOBIN 29.4 pg (27.0-31.0); MEAN CORPUSCULAR HGB CONC 33.9 g/dL (32.0-36.0); MEAN CORPUSCULAR VOLUME 86.8 fL (80.0-94.0); MEAN PLATELET VOLUME 8.2 fL (7.4-11.4); MONOCYTES % (AUTO) 10.3 %; NEUTROPHILS # (AUTO) 6.1 10^3/uL (1.5-6.6); NEUTROPHILS % (AUTO) 65.6 %; PLT - PLATELET COUNT 201 10^3/uL (130-450); RED BLOOD COUNT 5.46 10^6/uL (4.70-6.10); RED CELL DISTRIBUTION WIDTH 12.7 % (12.0-15.0); WHITE BLOOD COUNT 9.3 x10^3/uL (4.8-10.8)
[2017-09-02] MEDS ORDERED: MORPHINE 2 MG/ML CARPUJECT IVP STA ×2 (15:43→17:35)
[2017-09-02 15:56] LABS: ALBUMIN 4.5 g/dL (3.2-5.5); ALBUMIN/GLOBULIN RATIO 1.3 (1.0-2.2); BILIRUBIN,TOTAL 0.5 mg/dL (0.2-1.0); CALCIUM 9.9 mg/dL (8.5-10.3); CREATININE 1.2 mg/dL (0.6-1.2); TOTAL PROTEIN 7.9 g/dL (6.7-8.2)
[2017-09-02] MEDS ORDERED: IOPAMIDOL-300 100 ML VIAL ONE (15:59)
--- NOTE | 2017-09-02 16:16 | XRAY Report ---
EXAM: CHEST RADIOGRAPHY EXAM DATE: 09/02/2017 03:48 PM. CLINICAL HISTORY: Cp. COMPARISON: 08/15/2017. TECHNIQUE: 1 view. FINDINGS: Lungs/Pleura: No focal opacities evident. No pleural effusion. No pneumothorax. Mediastinum: Within exam limitations, the cardiomediastinal contour is normal. Other: Cervical spine plate IMPRESSION: Normal single view chest. [facility] Referring Provider Line: [phone] SITE ID: [id number]
--- NOTE | 2017-09-02 16:16 | XRAY Preliminary Report ---
Exam: XR CHEST 1 VIEW X-RAY IMPRESSION: Normal single view chest. [facility] SITE ID: [id number]
[2017-09-02] MEDS ORDERED: IOPAMIDOL-300 100 ML VIAL IVP ONE (16:53)
--- NOTE | 2017-09-02 17:02 | CT Preliminary Report ---
Exam: CT CHEST ANGIO (AORTA) IMPRESSION: 1. No aortic aneurysm or dissection. 2. No acute findings. 3. Severe fatty liver. [facility] SITE ID: [id number]
--- NOTE | 2017-09-02 17:03 | CT Report ---
EXAM: CT ANGIOGRAM CHEST, ABDOMEN AND PELVIS EXAM DATE: 09/02/2017 04:35 PM. CLINICAL HISTORY: Chest pain back pain. COMPARISONS: None. TECHNIQUE: Routine axial helical CT angiographic imaging was performed through the chest, abdomen, and pelvis. I V Contrast: 100 mL Isovue 300. Reconstructions: Coronal, sagittal, and 3D MIP reconstructions of the aorta. In accordance with CT protocol optimization, one or more of the following dose reduction techniques w ere utilized for this exam: automated exposure control, adjustment of mA and/or KV based on patient s ize, or use of iterative reconstructive technique. FINDINGS: Vascular Structures: Normal. No aneurysm, dissection, or significant atherosclerotic disease of the t horacic aorta, abdominal aorta, or iliac arteries. The visualized pulmonary, mesenteric, and solid or kathie vascular structures are also within normal limits. Lungs/Pleura: No consolidation, nodules, or edema. No effusions or pneumothorax. Mediastinum: Small pericardial effusion. No cardiac enlargement or adenopathy. Abdominal Organs: Liver: Severe fatty liver. Gallbladder: Normal. Bile ducts: Normal. Pancreas: Normal. Spleen: Normal. Adrenals: Normal. Kidneys: Normal. Peritoneal Cavity: Normal. No free fluid, free air, or acute inflammatory process. Normal appendix. Pelvic Organs: Normal. The bladder and visualized pelvic organs are within normal limits. Bones: No acute bone findings. C7-T1 fusion hardware. IMPRESSION: 1. No aortic aneurysm or dissection. 2. No acute findings. 3. Severe fatty liver. [facility] Referring Provider Line: [phone] SITE ID: [id number]
--- NOTE | 2017-09-02 17:03 | CT Preliminary Report ---
Exam: CT ABDOMEN/PELVIS ANGIO IMPRESSION: 1. No aortic aneurysm or dissection. 2. No acute findings. 3. Severe fatty liver. [facility] SITE ID: [id number]
[2017-09-02] MEDS ORDERED: NITROGLYCERIN 2% PASTE TOP STA (17:23)
[2017-09-02] MEDS ORDERED: ONDANSETRON 4 MG/2 ML VIAL IVP STA (17:35)
[2017-09-02] MEDS ORDERED: TEMAZEPAM 15 MG CAPSULE PO PRN (18:39)
[2017-09-02] MEDS ORDERED: PROCHLORPERAZINE 10 MG/2 ML VIAL IVP PRN (18:39)
[2017-09-02] MEDS ORDERED: ACETAMINOPHEN 325 MG TABLET PO PRN (18:39)
[2017-09-02] MEDS: MORPHINE 2 MG/ML CARPUJECT IVP PRN ×2 (19:41→21:44)
[2017-09-02] MEDS: SODIUM CHLORIDE FLUSH 0.9% 10 ML SYRINGE IVP PRN ×2 (19:41→21:44)
[2017-09-02] MEDS ORDERED: HYDROcod/ACETAM 5/325 MG TABLET PO PRN (19:50)
[2017-09-02] MEDS ORDERED: BENZONATATE 100 MG CAPSULE PO PRN (19:50)
[2017-09-02] MEDS ORDERED: CHLORPHEN P STIREX PO PRN (19:50)
[2017-09-02] MEDS ORDERED: CYCLOBENZAPRINE 10 MG TABLET PO PRN (19:50)
[2017-09-02] MEDS ORDERED: ALBUTEROL SULF INH PRN (19:50)
[2017-09-02] MEDS ORDERED: HYDROCODONE PO PRN (19:50)
[2017-09-02] MEDS ORDERED: cloNIDine 0.1 MG TABLET PO SCH ×3 (21:00→21:28)
[2017-09-02] MEDS ORDERED: ATENOLOL 25 MG TABLET PO SCH (21:00)
[2017-09-02] MEDS: GABAPENTIN 300 MG CAPSULE PO SCH (21:43)
[2017-09-02] MEDS ORDERED: GABAPENTIN 300 MG CAPSULE PO SCH (22:00)
[2017-09-02] MEDS ORDERED: GABAPENTIN 400 MG CAPSULE PO SCH (22:00)
[2017-09-02] MEDS: SODIUM CHLORIDE FLUSH 0.9% 10 ML SYRINGE IVP SCH (23:42)
--- NOTE | 2017-09-03 00:31 | HISTORY & PHYSICAL EXAMINATION ---
Chief Complaint - Chief Complaint Chief Complaint: chest pain History of Present Illness - Admitted From Admitted From:: home - History Obtained From History obtained from: Patient - History of Present Illness HPI Comment/Other: Mr. Shiv Mckeon is a very pleasant 47-year-old gentleman who has been having shortness of breath for the last several days. He has been to the [facility] emergency department and was given medications for his breathing however today he woke up with the chest pain component. He came back to would be general again in this time was seen for chest pain in addition to the shortness of breath. He has a history significant for hypertension, chronic back pain, type 2 diabetes, anxiety and depression.He will be admitted to an observation bed and serial troponins will be done. We will also monitor him on telemetry and address any other issues as they arise. History - Past Medical History Cardiovascular: reports: Hypertension, High cholesterol Respiratory: reports: None Neuro: reports: None Endocrine/Autoimmune: reports: Type 2 diabetes GI: reports: None : reports: None HEENT: reports: None Psych: reports: Depression, Anxiety, ADD/ADHD Musculoskeletal: reports: Chronic back pain Derm: reports: None MRSA Hx?: No - Past Surgical History Other past surgical history: Discectomy, C5 - Family & Social History Family History: Mother: Alive and Well, Diabetes, Type 2, Hyperlipidemia, Hypertension, Father: Alive and Well, CAD Living arrangement: At home Living Situation: With family - Substance History Use: Uses substance without health or social issues: NONE Abuse: Recurrent use of substance despite neg consequences: NONE Dependence: Experiences withdrawal or developed tolerances: NONE - POLST Patient has POLST: No POLST Status: Full Code Meds/Allgy - Home Medications Home Medications: Ambulatory Orders Medication Instructions Recorded Confirmed Atenolol 100 mg PO QPM 05/06/14 09/02/17 cloNIDine [Catapres] 0.1 tab PO QPM 05/06/14 09/02/17 Sertraline [Zoloft] 50 mg PO DAILY 12/18/16 09/02/17 Gabapentin 900 mg PO TID 09/02/17 09/02/17 metFORMIN [Glucophage] 500 mg PO DAILY 09/02/17 09/02/17 - Allergies Allergies/Adverse Reactions: Allergies Allergy/AdvReac Type Severity Reaction Status Date / Time droperidol AdvReac Unknown Verified 08/10/17 17:13 Review of Systems - Constitutional Constitutional: denies: Fatigue, Fever, Chills, Malaise, Weakness, Poor appetite - Eyes Eyes: denies: Pain, Irritation, Amaurosis, Blurred vision, Dipolpia - Ears, Nose & Throat Ears, Nose & Throat: denies: Ear pain, Hearing loss, Hearing aids, Tinnitus, Vertigo, Nasal pain, Nasal discharge - Cardiovascular Cariovascular: reports: Chest pain, Decr. exercise tolerance. denies: Irregular heart rate, Palpitations, Edema, Lightheadedness, Syncope, Exertional dyspnea - Respiratory Respiratory: denies: Cough, Sputum production, Wheezing, Snoring, Hemoptysis, Orthopnea - Gastrointestinal Gastrointestinal: denies: Abdominal pain, Abdominal distention, Constipation, Diarrhea, Change in bowel habits, Rectal bleeding - Genitourinary Genitourinary: denies: Dysuria, Frequency, Urgency, Hematuria - Musculoskeletal Musculoskeletal: denies: Muscle pain, Back pain, Muscle aches, Stiffness - Integumentary Integumentary: denies: Rash, Pruritis, Lesions, Dryness - Neurological Neurological: denies: General weakness, Focal weakness, Headache, Dizziness - Psychiatric Psychiatric: denies: Depression, Anxiety, Suicidal, Hallucinations - Endocrine Endocrine: denies: Polyuria, Polydypsia, Polyphagia - Hematologic/Lymphatic Hematologic/Lymphatic: denies: Anemia, Bruising, Petechiae, Lymphadenopathy - All Other Systems All Other Systems: reports: Reviewed and negative Exam - Vital Signs Reviewed Vital Signs: Yes Vital Signs: Vital Signs x48h Temp Pulse Resp BP Pulse Ox 09/02/17 23:26 36.8 C 79 18 132/70 H 95 09/02/17 21:48 104 H 17 119/72 95 09/02/17 21:38 101 H 17 122/62 94 09/02/17 19:39 37.4 C 109 H 20 142/95 H 96 - Physical Exam General Appearance: positive: No acute distress, Alert Eyes Bilateral: positive: Normal inspection, PERRL, EOMI, No lid inflammation, Conjunctivae nml, No scleral icterus ENT: positive: ENT inspection nml, Pharynx nml, No signs of dehydration Neck: positive: Nml inspection, Thyroid nml, No JVD, Trachea midline. negative : Thyromegaly Respiratory: positive: Chest non-tender, No respiratory distress, Breath sounds nml. negative: Wheezes, Rales, Rhonchi Cardiovascular: positive: Regular rate & rhythm, No murmur, No gallop Peripheral Pulses: positive: 2+ Abdomen: positive: Non-tender, No organomegaly, Nml bowel sounds, No distention. negative: Guarding, Rebound Back: positive: Nml inspection. negative: CVA tenderness (R), CVA tenderness (L ) Skin: positive: Color nml, No rash, Warm, Dry. negative: Cyanosis Extremities: positive: Non-tender, Full ROM, Nml appearance, No pedal edema Neurologic/Psychiatric: positive: Oriented x3, CN's nml (2-12), Motor nml, Sensation nml, Mood/affect nml Conclusion/Plan - Problem List (1) Chest pain Conclusion/Plan: Serial troponins are negative 2, awaiting third set. The patient has a very good story and will be appropriate for stress testing in the morning. That has been ordered.We will continue with as needed supplemental oxygen, nitrates, and will continue to monitor the pt on telemetry. Qualifiers: Chest pain type: unspecified Qualified Code(s): R07.9 - Chest pain, unspecified (2) Type 2 diabetes mellitus Conclusion/Plan: The patient is only on low-dose metformin which we will continue. I will add sliding scale coverage. (3) Anxiety and depression Conclusion/Plan: I will continue the patient on Zoloft. The patient denies any exacerbations of his anxiety or depression at this time. (4) Chronic back pain Conclusion/Plan: We will continue the patient on his gabapentin. We will order an opiate for breakthrough pain and will address any other issues as they arise. Qualifiers: Back pain location: back pain in unspecified location Back pain laterality : unspecified Qualified Code(s): M54.9 - Dorsalgia, unspecified; G89.29 - Other chronic pain; G89.29 - Other chronic pain - Lab Results Lab results reviewed: Yes Fish Bones: 09/02/17 15:29 09/02/17 15:29 - Diagnostic Imaging Results Diagnostic Imaging Results: positive: Final report reviewed Diagnostic Imaging Results Comments: EXAM: CHEST RADIOGRAPHY EXAM DATE: 09/02/2017 03:48 PM. CLINICAL HISTORY: Cp. COMPARISON: 08/15/2017. TECHNIQUE: 1 view. FINDINGS: Lungs/Pleura: No focal opacities evident. No pleural effusion. No pneumothorax. Mediastinum: Within exam limitations, the cardiomediastinal contour is normal. Other: Cervical spine plate IMPRESSION: Normal single view chest. EXAM: CT ANGIOGRAM CHEST, ABDOMEN AND PELVIS EXAM DATE: 09/02/2017 04:35 PM. CLINICAL HISTORY: Chest pain back pain. COMPARISONS: None. TECHNIQUE: Routine axial helical CT angiographic imaging was performed through the chest, abdomen, and pelvis. IV Contrast: 100 mL Isovue 300. Reconstructions: Coronal, sagittal, and 3D MIP reconstructions of the aorta. In accordance with CT protocol optimization, one or more of the following dose reduction techniques were utilized for this exam: automated exposure control, adjustment of mA and/or KV based on patient size, or use of iterative reconstructive technique. FINDINGS: Vascular Structures: Normal. No aneurysm, dissection, or significant atherosclerotic disease of the thoracic aorta, abdominal aorta, or iliac arteries. The visualized pulmonary , mesenteric, and solid organ vascular structures are also within normal limits. Lungs/Pleura: No consolidation, nodules, or edema. No effusions or pneumothorax. Mediastinum: Small pericardial effusion. No cardiac enlargement or adenopathy. Abdominal Organs: Liver: Severe fatty liver. Gallbladder: Normal. Bile ducts: Normal. Pancreas: Normal. Spleen: Normal. Adrenals: Normal. Kidneys: Normal. Peritoneal Cavity: Normal. No free fluid, free air, or acute inflammatory process. Normal appendix. Pelvic Organs: Normal. The bladder and visualized pelvic organs are within normal limits. Bones: No acute bone findings. C7-T1 fusion hardware. IMPRESSION: 1. No aortic aneurysm or dissection. 2. No acute findings. 3. Severe fatty liver. Core Measures - Anticipated LOS I expect patient to be DC'd or transferred within 96 hours.: Yes - DVT/VTE - Prophylaxis VTE/DVT Device ordered at admit?: Yes
[2017-09-03] MEDS: MORPHINE 2 MG/ML CARPUJECT IVP PRN ×4 (03:31→17:50)
[2017-09-03] MEDS: SODIUM CHLORIDE FLUSH 0.9% 10 ML SYRINGE IVP PRN ×4 (03:32→17:50)
[2017-09-03 03:57] LABS: CHOL/HDL RATIO 10.3 (<5.0); CHOLESTEROL 339 mg/dL; HB2 TOTAL 15.9 g/dL; HDL CHOLESTEROL 33 mg/dL; HEMOGLOBIN A1C 1.26 g/dL; HEMOGLOBIN A1C % 9.4 % (4.6-6.2); LDL CHOLESTEROL,CALCULATED 246 mg/dL; LDL/HDL RATIO 7.5 (<3.6); VLDL CHOLESTEROL 60 mg/dL
[2017-09-03] MEDS: GABAPENTIN 300 MG CAPSULE PO SCH ×2 (06:06→16:22)
[2017-09-03] MEDS: INSULIN ASPART 300 UNIT/3 ML PEN SUBQ SCH ×4 (08:00→20:31)
[2017-09-03] MEDS: SODIUM CHLORIDE FLUSH 0.9% 10 ML SYRINGE IVP SCH ×3 (08:05→17:50)
[2017-09-03] MEDS ORDERED: FAMOTIDINE 20 MG TABLET PO SCH (09:00)
[2017-09-03] MEDS ORDERED: DEXAMETHASONE 4 MG TABLET PO SCH (09:00)
[2017-09-03] MEDS ORDERED: POLYETHYLENE GLYCOL 3350 17 GM PACKET PO SCH (09:00)
[2017-09-03] MEDS ORDERED: predniSONE 20 MG TABLET PO SCH (09:00)
[2017-09-03] MEDS ORDERED: SERTRALINE 25 MG TABLET PO SCH (09:00)
[2017-09-03] MEDS ORDERED: DOBUTamine 500 MG/250 ML 500 MG/250 ML BAG IV ONE (13:30)
[2017-09-03] MEDS ORDERED: NITROGLYCERIN SL 0.4 MG TABLET SL PRN (15:14)
[2017-09-03] MEDS ORDERED: ATENOLOL 25 MG TABLET PO SCH (15:20)
[2017-09-03] MEDS ORDERED: ATORVASTATIN 40 MG TABLET PO SCH (16:00)
[2017-09-03] MEDS ORDERED: GABAPENTIN 300 MG CAPSULE PO SCH (16:00)
[2017-09-03] MEDS: oxyCOD/ACETAMIN 5 MG/325 MG TABLET PO PRN ×2 (16:25→20:22)
[2017-09-03] MEDS ORDERED: INSULIN GLARGINE 300 UNIT/3 ML PEN SUBQ SCH (17:00)
--- NOTE | 2017-09-03 17:07 | DISCHARGE SUMMARY ---
"Discharge Summary Admit Date: 09/02/17 Discharge Date: 09/03/17 Discharging Provider: LEATHA Cruz Primary Care Provider: Chad Shirley Code Status: Attempt Resuscitation Condition at Discharge: Stable Discharge Disposition: 02 Transfer Acute Care [facility]osp [place] [facility] [place] DIAGNOSES Admission Diagnoses: Chest pain (R07.9) Type 2 diabetes mellitus (E11.9) Anxiety and depression (F41.8) Chronic back pain (M54.9) Discharge Diagnoses with Status of Each Condition: Chest pain (R07.9) ongoing, stable. Type 2 diabetes mellitus (E11.9) uncontrolled, started on Lantus. Anxiety and depression (F41.8) chronic, stable. Chronic back pain (M54.9) chronic, stable. Unstable angina (I20.0) new on this admission, stable. Hyperlipidemia (E78.5) chronic, medical care to continue. - HPI History of Present Illness: Mr. Shiv Alonso, who goes by Flavio, is a very pleasant, obese 47-year-old gentleman with a past medical history of obesity, diabetes mellitus type 2, chronic back pain, anxiety, and hypertension. He presented to the ED after having shortness of breath for the last several days. He has had several ED admissions and most recently came to [facility] emergency department and was given medications for his breathing, however, today he woke up with the chest pain component. He will be admitted to an observation bed and serial troponins will be done. We will also monitor him on telemetry and address any other issues as they arise. - HOSPITAL COURSE Hospital Course: Upon admission exam patient describes his chest pain as left mid-sternal with radiation to his left should, arm and hand with a heavy sensation and numbness. He complains of a headache from the Nitro patches, and his chronic back pain is quite severe. He underwent a cardiac stress test that was changed to a Dobutamine stress due to the tread mill being out of order. He unfortunately had chest pain that reached a 7/10, so the test was aborted. Imaging studies were also completed that indicated a mild severity reversible perfusion deficit in the mid anterior wall, suspicious for stress induced ischemia. Patient was found to have grossly elevated lipids, A1C of 9.4 and no abnormal troponin. A call to [facility] was made, with plans to transport using ACLS. Dr. Mendez, Hospitalist will accept to the hospital, and Dr. Manning, cardiology will plan for a cardiac cath in the AM. - ALLERGIES Allergies/Adverse Reactions: Allergies Allergy/AdvReac Type Severity Reaction Status Date / Time droperidol AdvReac Unknown Verified 08/10/17 17:13 - MEDICATIONS Home Medications: Ambulatory Orders Medication Instructions Recorded Confirmed Atenolol 100 mg PO QPM 05/06/14 09/02/17 cloNIDine [Catapres] 0.1 tab PO QPM 05/06/14 09/02/17 Sertraline [Zoloft] 50 mg PO DAILY 12/18/16 09/02/17 Gabapentin 900 mg PO TID 09/02/17 09/02/17 metFORMIN [Glucophage] 500 mg PO DAILY 09/02/17 09/02/17 Atorvastatin [Lipitor] 80 mg PO QPM tablet 09/03/17 Enoxaparin [Lovenox] 110 mg SUBQ BID syringe 09/03/17 Insulin Aspart [NovoLOG] 1 - 9 unit SUBQ 09/03/17 0800,1200,1700,2100 pen Insulin Glargine [Lantus Solostar] 20 unit SUBQ QPM pen 09/03/17 Nitroglycerin [Nitrostat] 0.4 mg SL Q5MIN PRN tablet 09/03/17 Temazepam [Restoril] 15 mg PO QPM PRN capsule 09/03/17 oxyCODONE/ACET 5/325 [Percocet 5 1 tab PO Q4HR PRN tablet 09/03/17 mg/325 mg] Home Medications Other | Comments: Patient is [employer] - PHYSICAL EXAM AT DISCHARGE General Appearance: positive: No acute distress, Alert, Anxious Eyes Bilateral: positive: Normal inspection ENT: positive: ENT inspection nml, Pharynx nml Neck: positive: Nml inspection, Thyroid nml, No JVD Respiratory: positive: Chest non-tender, No respiratory distress, Breath sounds nml Cardiovascular: positive: Regular rate & rhythm, No gallop, Tachycardia, Decreased pulse(s) Peripheral Pulses: positive: 1+ Abdomen: positive: Non-tender, No organomegaly, Nml bowel sounds Back: positive: Nml inspection Skin: positive: No rash, Warm, Dry, Pallor Extremities: positive: Non-tender, Full ROM, Nml appearance Neurologic/Psychiatric: positive: Oriented x3, CN's nml (2-12), Motor nml, Sensation nml, Depressed mood/affect Reflexes: Bicep (R): 3+, Bicep (L): 3+ - LABS Result Diagrams: 09/02/17 15:29 09/02/17 15:29 - DIAGNOSTIC IMAGING Diagnostic Imaging Results: Final report reviewed Diagnostic Imaging Results Comments: EXAM: CHEST RADIOGRAPHY EXAM DATE: 09/02/2017 03:48 PM. CLINICAL HISTORY: Cp. COMPARISON: 08/15/2017. TECHNIQUE: 1 view. FINDINGS: Lungs/Pleura: No focal opacities evident. No pleural effusion. No pneumothorax. Mediastinum: Within exam limitations, the cardiomediastinal contour is normal. Other: Cervical spine plate IMPRESSION: Normal single view chest. EXAM: CT ANGIOGRAM CHEST, ABDOMEN AND PELVIS EXAM DATE: 09/02/2017 04:35 PM. CLINICAL HISTORY: Chest pain back pain. COMPARISONS: None. TECHNIQUE: Routine axial helical CT angiographic imaging was performed through the chest, abdomen, and pelvis. IV Contrast: 100 mL Isovue 300. Reconstructions : Coronal, sagittal, and 3D MIP reconstructions of the aorta. In accordance with CT protocol optimization, one or more of the following dose reduction techniques were utilized for this exam: automated exposure control, adjustment of mA and/or KV based on patient size, or use of iterative reconstructive technique. FINDINGS: Vascular Structures: Normal. No aneurysm, dissection, or significant atherosclerotic disease of the thoracic aorta, abdominal aorta, or iliac arteries. The visualized pulmonary, mesenteric, and solid organ vascular structures are also within normal limits. Lungs/Pleura: No consolidation, nodules, or edema. No effusions or pneumothorax. Mediastinum: Small pericardial effusion. No cardiac enlargement or adenopathy. Abdominal Organs: Liver: Severe fatty liver. Gallbladder: Normal. Bile ducts: Normal. Pancreas: Normal. Spleen: Normal. Adrenals: Normal. Kidneys: Normal. Peritoneal Cavity: Normal. No free fluid, free air, or acute inflammatory process. Normal appendix. Pelvic Organs: Normal. The bladder and visualized pelvic organs are within normal limits. Bones: No acute bone findings. C7-T1 fusion hardware. IMPRESSION: 1. No aortic aneurysm or dissection. 2. No acute findings. 3. Severe fatty liver. EXAM: SINGLE-ISOTOPE DOBUTAMINE STRESS TEST. SINGLE-ISOTOPE AND ONE-DAY REST/ STRESS MYOCARDIAL PERFUSION SCANS WITH TOMOGRAPHIC IMAGING, QUANTITATIVE ANALYSIS, WALL MOTION ANALYSIS AND CALCULATION OF EJECTION FRACTION. EXAM DATE: 09/03/2017 04:51 PM. CLINICAL HISTORY: CP, Abn EKG. COMPARISON: None. TECHNIQUE: A rest myocardial perfusion scan was done with tomography after the intravenous administration of 9.8 mCi Tc-99m sestamibi. After an appropriate delay, dobutamine infusion was performed according to department protocol, with a total of approximately 8.8 mg of dobutamine administered intravenously. The maximum heart rate was 101 bpm. At approximately peak heart rate, 30.0 mCi of Tc-99m sestamibi was injected for stress myocardial perfusion scan. Motion correction was applied when appropriate. Gated tomographic images were obtained for wall motion analysis and computation of left ventricular ejection fraction. FINDINGS: Perfusion images: Left ventricular chamber size is normal at rest and unchanged at stress. No convincing fixed perfusion deficits. There is a small region of mildly reduced uptake in the mid anterior wall which appears improved on rest images. No corresponding focal wall motion abnormality on gated images. Gated images: No focal wall motion abnormality. The left ventricular ejection fraction is estimated at 66% (normal > 50%). IMPRESSION: 1. Small size, mild severity reversible perfusion deficit in the mid anterior wall, suspicious for stress-induced ischemia. 2. No convincing fixed perfusion deficits. 3. Left ventricular ejection fraction of 66% (normal > 50%). 4. No focal wall motion abnormalities. - FOLLOW UP Follow Up: [place] [facility] [place] the care of Dr. Mendez. - TIME SPENT Time Spent in Discharge (Minutes): 45"
--- NOTE | 2017-09-03 17:45 | Nuclear Medicine Report ---
EXAM: SINGLE-ISOTOPE DOBUTAMINE STRESS TEST. SINGLE-ISOTOPE AND ONE-DAY REST/STRESS MYOCARDIAL PERFUSION SC ANS WITH TOMOGRAPHIC IMAGING, QUANTITATIVE ANALYSIS, WALL MOTION ANALYSIS AND CALCULATION OF EJECTION FRACTION. EXAM DATE: 09/03/2017 04:51 PM. CLINICAL HISTORY: CP, Abn EKG. COMPARISON: None. TECHNIQUE: A rest myocardial perfusion scan was done with tomography after the intravenous administration of 9.8 mCi Tc-99m sestamibi. After an appropriate delay, dobutamine infusion was performed according to department protocol, with a total of approximately 8.8 mg of dobutamine administered intravenously. The maximum heart rate was 101 bpm. At approximately peak heart rate, 30.0 mCi of Tc-99m sestamibi was injected for stress myoca rdial perfusion scan. Motion correction was applied when appropriate. Gated tomographic images were obtained for wall motion analysis and computation of left ventricular e jection fraction. FINDINGS: Perfusion images: Left ventricular chamber size is normal at rest and unchanged at stress. No convincing fixed perfusion deficits. There is a small region of mildly reduced uptake in the mid anterior wall which appears improved on r est images. No corresponding focal wall motion abnormality on gated images. Gated images: No focal wall motion abnormality. The left ventricular ejection fraction is estimated at 66% (normal > 50%). IMPRESSION: 1. Small size, mild severity reversible perfusion deficit in the mid anterior wall, suspicious for st ress-induced ischemia. 2. No convincing fixed perfusion deficits. 3. Left ventricular ejection fraction of 66% (normal > 50%). 4. No focal wall motion abnormalities. [facility] The call report notification system was initiated by Dr. Vikas Quispe at 17:41 hrs on 09/03/17. The above findings were discussed with Dr Emmanuel Dr by Dr. Vikas Quispe at 17:43 hrs on 09/03/17. Referring Provider Line: [phone] SITE ID: [id number]
--- NOTE | 2017-09-03 17:53 | CARDIAC PROCEDURE NOTE ---
DATE OF SERVICE: 09/03/2017 Physician: Mamta Benitez MD After signing informed consent, the patient underwent a dobutamine stress test with myocardial nuclear perfusion imaging. Resting heart rate 71. Peak heart rate 101 (59% predicted maximum heart rate for age). Resting blood pressure 118/42. Peak blood pressure 169/70. Resting EKG: Normal sinus rhythm, anterolateral ST-depressions with symmetrically inverted T-waves in the anterior leads. Dobutamine was infused for 3 minutes at 5 mcg, 10 mcg, and 1-1/2 minutes at 20 mcg. The patient started to develop 1/10 typical chest pain with left arm heaviness and numbness, and the dobutamine infusion was stopped. His symptoms peaked with a rating of chest pain at 7/10. Peak EKG showed deeper T-wave inversions in the anterior leads. In recovery, the patient received sublingual nitroglycerin x2, five minutes apart, which relieved his chest pain after approximately 8 minutes. The blood pressure at the completion of the entire test was 111/80. The deep T-wave inversions reverted back to his baseline EKG. IMPRESSION: Abnormal EKG suggesting ischemia, during a symptom-limited dobutamine stress test. Nuclear images reported separately. TD: 09/03/2017 17:52 ANG
[2017-09-03] MEDS ORDERED: diazePAM 5 MG TABLET PO ONE (18:47)
--- NOTE | 2017-09-03 18:51 | Discharge Plan ---
Discharge Plan Disposition: 02 Transfer Acute Care Hosp Condition: Stable Diet: Cardiac Activity Restrictions: Activity as Tolerated Shower Restrictions: No Driving Restrictions: No Weight Bearing: Full Weight Additional Instructions or Follow Up instructions: It is recommended that you see your PCP within a week of discharge. No Smoking: If you smoke, Please STOP! Call for help. Follow-up with: Chad Adams MD [Primary Care Provider] -
[2017-09-03] MEDS ORDERED: ENOXAPARIN 120 MG/0.8 ML SYRINGE SUBQ SCH (19:30)
[2017-09-03 20:18] VITALS: BP 108/65
== END 2017-09-03 20:45 | disposition short-term general hospital (02) ==
LOC: ED 15:08 → OBS 18:39
PROVIDERS: ADMIT Internal Medicine; ATTEND Nurse Practitioner
DX: I20.0 Unstable angina (principal); E11.65 Type 2 diabetes mellitus with hyperglycemia; F41.8 Other specified anxiety disorders; G89.29 Other chronic pain; M54.9 Dorsalgia, unspecified; E78.5 Hyperlipidemia, unspecified; I10 Essential (primary) hypertension; F90.9 Attention-deficit hyperactivity disorder, unspecified type; K76.0 Fatty (change of) liver, not elsewhere classified; Z79.84 Long term (current) use of oral hypoglycemic drugs; Z79.899 Other long term (current) drug therapy; Z79.51 Long term (current) use of inhaled steroids; Z79.891 Long term (current) use of opiate analgesic; Z79.52 Long term (current) use of systemic steroids
CPT/HCPCS: 36415; 71045; 71275; 74174; 78452; 80053; 80061; 83036; 83690; 83721; 84484; 85025; 85379; 93005; 93017; 93306; 96372; 96374; 96376; 99284; A9270; A9500; G0378; J1250; J1650; Q9967

== ENCOUNTER 2017-09-03 20:56 | Outpatient (CLI) | payer MEDICAID | END 2017-09-03 20:57 | disposition short-term general hospital (02) | LOC: EMS 20:56 | PROVIDERS: ATTEND Surgery | DX: R07.9 Chest pain, unspecified (principal) | CPT/HCPCS: A0425; A0426 ==

== ENCOUNTER 2017-09-07 09:54 | Emergency (ER) | payer MEDICAID ==
[2017-09-07] MEDS ORDERED: SODIUM CHLORIDE 0.9% 1,000 ML IV ONE ×2 (10:41→11:51)
--- NOTE | 2017-09-07 10:48 | ED Physician Documentation ---
History of Present Illness - Stated complaint Stated Complaint: ATKINS/W DOUBLE VISION - Chief complaint Chief Complaint: Neuro - History obtained from History obtained from: Patient - History of Present Illness Timing: Yesterday - Additonal information Additional information: 47-year-old diabetic male who has had a cardiac cath done yesterday in preparation for surgery has developed a headache and double vision. He reports that he has double vision out of the left eye only and the headache and double vision started yesterday afternoon when he was on his way home from a cardiac cath. He states there was some multivessel disease and he is being medically managed for angina. He was getting ready to have surgery on his knee when he underwent preoperative evaluation The demonstrated an elevated A1c. He is under the process of getting his diabetes under control and his cardiac evaluation for preparation for surgery. Review of Systems Constitutional: denies: Fever, Chills, Myalgias Eyes: reports: Other (diplopia monocular). denies: Decreased vision Ears: denies: Ear pain Nose: denies: Rhinorrhea / runny nose, Congestion Throat: denies: Sore throat Cardiac: reports: Chest pain / pressure (similar to always). denies: Palpitations Respiratory: denies: Dyspnea, Cough GI: denies: Abdominal Pain, Nausea, Vomiting : reports: Frequency. denies: Dysuria Skin: denies: Rash Musculoskeletal: denies: Neck pain, Back pain, Extremity pain Neurologic: denies: Generalized weakness, Focal weakness, Numbness PD PAST MEDICAL HISTORY - Past Medical History Cardiovascular: Hypertension, High cholesterol Respiratory: None Neuro: None Endocrine/Autoimmune: Type 2 diabetes GI: None : None HEENT: None Psych: Depression, Anxiety, ADD/ADHD Musculoskeletal: Chronic back pain Derm: None - Past Surgical History Past Surgical History: Yes Cardiovascular: Cardiac catheterization - Present Medications Home Medications: Ambulatory Orders Medication Instructions Recorded Confirmed Atenolol 100 mg PO QPM 05/06/14 09/02/17 cloNIDine [Catapres] 0.1 tab PO QPM 05/06/14 09/02/17 Sertraline [Zoloft] 50 mg PO DAILY 12/18/16 09/02/17 Gabapentin 900 mg PO TID 09/02/17 09/02/17 metFORMIN [Glucophage] 500 mg PO DAILY 09/02/17 09/02/17 Atorvastatin [Lipitor] 80 mg PO QPM tablet 09/03/17 Nitroglycerin [Nitrostat] 0.4 mg SL Q5MIN PRN tablet 09/03/17 HYDROcod/ACETAM 5/325 [[place] 5/325] 1 - 2 ea PO Q6H PRN #15 tablet 09/07/17 - Allergies Allergies/Adverse Reactions: Allergies Allergy/AdvReac Type Severity Reaction Status Date / Time droperidol AdvReac Unknown Verified 08/10/17 17:13 - Social History Does the pt smoke?: No Smoking Status: Never smoker Does the pt drink ETOH?: No Does the pt have substance abuse?: No - Immunizations Immunizations are current?: Yes - POLST Patient has POLST: No POLST Status: Full Code PD ED PE NORMAL - Vitals Vital signs reviewed: Yes (hypertensive ) - General General: Alert and oriented X 3, No acute distress, Well developed/nourished - HEENT HEENT: Atraumatic, PERRL, EOMI, Other (There appear to be cararcts aparent bilaterally ) - Neck Neck: Supple, no meningeal sign, No bony TTP - Cardiac Cardiac: RRR, No murmur - Respiratory Respiratory: No respiratory distress, Clear bilaterally - Abdomen Abdomen: Soft, Non tender - Back Back: No CVA TTP, No spinal TTP - Derm Derm: Normal color, Warm and dry, No rash - Extremities Extremities: No deformity, No edema - Neuro Neuro: No motor deficit, No sensory deficit Eye Opening: Spontaneous Motor: Obeys Commands Verbal: Oriented GCS Score: 15 - Psych Psych: Normal mood, Normal affect Results - Vitals Vitals: Vital Signs - 24 hr 09/07/17 09/07/17 09/07/17 10:14 11:15 12:17 Temperature 36.8 C Heart Rate 84 75 80 Respiratory 16 12 16 Rate Blood Pressure 144/86 H 135/87 H 146/95 H O2 Saturation 97 98 95 Oxygen O2 Source Room air - Labs Labs: Laboratory Tests 09/07/17 09/07/17 09/07/17 10:24 10:45 10:45 WBC 6.9 RBC 5.06 Hgb 14.7 Hct 43.5 MCV 86.1 MCH 29.1 MCHC 33.8 RDW 12.4 Plt Count 181 MPV 7.9 Neut # 5.0 Lymph # 1.1 L [place] # 0.5 Eos # 0.2 Baso # 0.1 Absolute Nucleated RBC 0.00 Nucleated RBC % 0.0 Sodium 135 Potassium 4.0 Chloride 99 L Carbon Dioxide 25 Anion Gap 11.0 BUN 13 Creatinine 1.1 Estimated GFR (MDRD) 71 L Glucose 185 H POC Whole Bld Glucose 180 H Calcium 9.3 Total Bilirubin 0.6 AST 54 H ALT 57 Alkaline Phosphatase 66 Troponin I Total Protein 7.7 Albumin 4.2 Globulin 3.5 Albumin/Globulin Ratio 1.2 Lipase 27 Urine Color Urine Clarity Urine pH Ur Specific [place] Urine Protein Urine Glucose (UA) Urine Ketones Urine Occult Blood Urine Nitrite Urine Bilirubin Urine Urobilinogen Ur Leukocyte Esterase Ur Microscopic Review Urine Culture Comments 09/07/17 09/07/17 10:45 11:10 WBC RBC Hgb Hct MCV MCH MCHC RDW Plt Count MPV Neut # Lymph # [place] # Eos # Baso # Absolute Nucleated RBC Nucleated RBC % Sodium Potassium Chloride Carbon Dioxide Anion Gap BUN Creatinine Estimated GFR (MDRD) Glucose POC Whole Bld Glucose Calcium Total Bilirubin AST ALT Alkaline Phosphatase Troponin I < 0.04 Total Protein Albumin Globulin Albumin/Globulin Ratio Lipase Urine Color YELLOW Urine Clarity CLEAR Urine pH 6.0 Ur Specific [place] 1.015 Urine Protein NEGATIVE Urine Glucose (UA) 250 H Urine Ketones NEGATIVE Urine Occult Blood NEGATIVE Urine Nitrite NEGATIVE Urine Bilirubin NEGATIVE Urine Urobilinogen 0.2 (NORMAL) Ur Leukocyte Esterase NEGATIVE Ur Microscopic Review NOT INDICATED Urine Culture Comments NOT INDICATED Procedures - IVC sono (time) 1030 Bedside IVC sono: IVC measures (cm) (0.83), IVC collapsed c insp (cm) (complete) , Dehydration (esta 2 liter deficit) PD MEDICAL DECISION MAKING - ED course Complexity details: reviewed results, re-evaluated patient, considered differential, d/w patient ED course: 47-year-old male has developed a headache and double vision from the left eye only. I have confirmed that this is monocular vision with direct confrontational testing and I believe I do see cataract in both eyes. In addition the patient has significant dehydration which appears to be related to diabetes. He has had a recent diagnosis of the diabetes and he has had recent workup of coronary disease.Here in the emergency department he is hydrated this does not really improve his headache much and he request something for pain. I have asked him to follow-up with the clinical support manager Dr. Edouard in [place]. Departure - Departure Disposition: 01 Home, Self Care Clinical Impression: Dehydration, Diplopia Type 2 diabetes mellitus Qualifiers: Diabetes mellitus complication status: with other specified complication Diabetes mellitus manager long term care insulin use: without manager long term care use Qualified Code(s) : E11.69 - Type 2 diabetes mellitus with other specified complication Headache Qualifiers: Headache type: unspecified Headache chronicity pattern: acute headache Intractability: not intractable Qualified Code(s): R51 - Headache Condition: Stable Instructions: ED Dehydration, ED Double Vision Follow-Up: Chad Adams MD [Primary Care Provider] - Jeremias Edouard MD [Provider Admit Priv/Credential] - Prescriptions: HYDROcod/ACETAM 5/325 [[place] 5/325] 1 - 2 ea PO Q6H PRN #15 tablet PRN Reason: Pain Discharge Date/Time: 09/07/17 12:24
[2017-09-07 10:51] LABS: BASOPHILS # (AUTO) 0.1 10^3/uL (0.0-0.1); BASOPHILS % (AUTO) 0.9 %; EOSINOPHILS # (AUTO) 0.2 10^3/uL (0.0-0.7); EOSINOPHILS % (AUTO) 2.6 %; HGB - HEMOGLOBIN 14.7 g/dL (14.0-18.0); LYMPHOCYTES # (AUTO) 1.1 10^3/uL (1.5-3.5); LYMPHOCYTES % (AUTO) 16.3 %; MEAN CORPUSCULAR HEMOGLOBIN 29.1 pg (27.0-31.0); MEAN CORPUSCULAR HGB CONC 33.8 g/dL (32.0-36.0); MEAN CORPUSCULAR VOLUME 86.1 fL (80.0-94.0); MEAN PLATELET VOLUME 7.9 fL (7.4-11.4); MONOCYTES # (AUTO) 0.5 10^3/uL (0.0-1.0); MONOCYTES % (AUTO) 7.9 %; NEUTROPHILS % (AUTO) 72.3 %; PLT - PLATELET COUNT 181 10^3/uL (130-450); RED BLOOD COUNT 5.06 10^6/uL (4.70-6.10); RED CELL DISTRIBUTION WIDTH 12.4 % (12.0-15.0); WHITE BLOOD COUNT 6.9 x10^3/uL (4.8-10.8)
[2017-09-07 11:03] LABS: ALBUMIN 4.2 g/dL (3.2-5.5); ALBUMIN/GLOBULIN RATIO 1.2 (1.0-2.2); BILIRUBIN,TOTAL 0.6 mg/dL (0.2-1.0); CALCIUM 9.3 mg/dL (8.5-10.3); CREATININE 1.1 mg/dL (0.6-1.2); TOTAL PROTEIN 7.7 g/dL (6.7-8.2)
--- NOTE | 2017-09-07 11:19 | CT Preliminary Report ---
Exam: CT HEAD W/O IMPRESSION: Normal head CT, without interval change. [facility] SITE ID: [id number]
--- NOTE | 2017-09-07 11:19 | CT Report ---
EXAM: CT HEAD EXAM DATE: 09/07/2017 11:12 AM. CLINICAL HISTORY: Headache and double vision. COMPARISON: 12/18/2016. TECHNIQUE: Multiaxial CT images were obtained from the foramen magnum to the vertex. Reformats: Coron al. IV contrast: None. In accordance with CT protocol optimization, one or more of the following dose reduction techniques w ere utilized for this exam: automated exposure control, adjustment of mA and/or KV based on patient s ize, or use of iterative reconstructive technique. FINDINGS: Parenchyma: No intraparenchymal hemorrhage. No evidence of mass, midline shift, or CT findings of inf arction. Cohen-white differentiation is distinct. Extraaxial Spaces: Normal for age. No subdural or epidural collections identified. Ventricles: Normal in size and position. Sinuses and Orbits: Imaged paranasal sinuses, orbits, and mastoids show no significant abnormality. H ypoplastic frontal sinuses, particularly the left, without change. Bones: No evidence of fracture or calvarial defect. Other: None. IMPRESSION: Normal head CT, without interval change. [facility] Referring Provider Line: [phone] SITE ID: [id number]
[2017-09-07 11:23] LABS: BILIRUBIN,URINE NEGATIVE (NEGATIVE); GLUCOSE, URINE (UA) 250 mg/dL (NEGATIVE); KETONES,URINE (UA) NEGATIVE (NEGATIVE); LEUKOCYTE ESTERASE, URINE NEGATIVE (NEGATIVE); NITRITE,URINE NEGATIVE (NEGATIVE); OCCULT BLOOD,URINE NEGATIVE (NEGATIVE); PROTEIN,URINE NEGATIVE (NEGATIVE); UROBILINOGEN,URINE 0.2 (NORMAL) E.U./dL (NORMAL)
[2017-09-07 11:25] LABS: CLARITY,URINE CLEAR (CLEAR)
[2017-09-07 12:18] VITALS: BP 146/95
== END 2017-09-07 12:24 | disposition home or self-care (01) ==
LOC: ED 09:54
DX: E86.0 Dehydration (principal); H53.2 Diplopia; E11.69 Type 2 diabetes mellitus with other specified complication; R51 Headache; Z79.84 Long term (current) use of oral hypoglycemic drugs
CPT/HCPCS: 36415; 70450; 80053; 81001; 81003; 83690; 84484; 85025; 87086; 99284

== ENCOUNTER 2017-09-22 14:00 | Emergency (ER) | payer MEDICAID ==
[2017-09-22] MEDS ORDERED: oxyCOD/ACETAMIN 5 MG/325 MG TABLET PO STA (14:41)
[2017-09-22] MEDS ORDERED: METOPROLOL TARTRATE 50 MG TABLET PO STA (14:41)
[2017-09-22] MEDS ORDERED: GABAPENTIN 100 MG CAPSULE PO STA (14:41)
[2017-09-22] MEDS ORDERED: NAPROXEN 250 MG TABLET PO STA (14:42)
[2017-09-22] MEDS ORDERED: NITROGLYCERIN SL 0.4 MG TABLET SL STA (14:42)
--- NOTE | 2017-09-22 15:26 | ED Physician Documentation ---
PD HPI BACK PAIN - Stated complaint Stated Complaint: LEG PX - Chief complaint Chief Complaint: Ext Problem - History obtained from History obtained from: Patient - History of Present Illness Timing - onset: Yesterday (he noted numbness down both legs where he usually has it down just left leg. Had done some heavy lifting over the weekend, with low back hurting more (02/12, with baseline 5-6). Ran out of his gabapentin yesterday as well. He says has not had pain meds for few weeks. Seen recently for chest pain and sent to [facility], with heart cath done showing some blockages (25% in one and 85% in another, and a third small vessel area showing ischemic blockage that was not stentable). He was given med management and has follow up appt in 2 days from now (). He says he has had chest pain ongoing from that hospitalization, worse with activity. BP has been 140s systolic and HR usually 80s when checks it (mostly daily).) Timing - duration: Days (has had back pain for months or longer and seeing Spine surgeon in [place], who has postponed surgery pending improved control of diabetes and heart problems. Pain worse the past few days.) Timing - details: Gradual onset, Waxing and waning Location: Lower, Right, Left Quality: Pain, Sharp, Aching Associated symptoms: Numbness (down back of both legs (previously was just the left).). No: Fever, Weakness, Incontinent of urine Worsened by: Movement, Lifting Contributing factors: Lifting Recently seen: Emergency Dept, Admitted (for chest pain, see above.) Review of Systems Constitutional: denies: Fever, Chills, Myalgias Nose: denies: Rhinorrhea / runny nose, Congestion Throat: denies: Sore throat Cardiac: reports: Chest pain / pressure (for few weeks, fairly consistent, worse with activity.). denies: Palpitations, Pedal edema, Calf pain Respiratory: denies: Cough GI: denies: Abdominal Pain, Nausea, Vomiting, Diarrhea, Bloody / black stool Skin: denies: Rash, Lesions Musculoskeletal: reports: Back pain. denies: Neck pain Neurologic: denies: Generalized weakness, Focal weakness, Numbness, Near syncope Endocrine: denies: Weight loss Immunocompromised: denies: Immunocompromised PD PAST MEDICAL HISTORY - Past Medical History Cardiovascular: Hypertension, High cholesterol, Coronary artery disease, Angina Respiratory: None Neuro: None Endocrine/Autoimmune: Type 2 diabetes GI: None : None HEENT: None Psych: Depression, Anxiety, ADD/ADHD Musculoskeletal: Chronic back pain Derm: None - Past Surgical History Past Surgical History: Yes Cardiovascular: Cardiac catheterization - Present Medications Home Medications: Ambulatory Orders Medication Instructions Recorded Confirmed Atenolol 100 mg PO QPM 05/06/14 09/02/17 cloNIDine [Catapres] 0.1 tab PO QPM 05/06/14 09/02/17 Sertraline [Zoloft] 50 mg PO DAILY 12/18/16 09/02/17 Gabapentin 900 mg PO TID 09/02/17 09/02/17 metFORMIN [Glucophage] 500 mg PO DAILY 09/02/17 09/02/17 Atorvastatin [Lipitor] 80 mg PO QPM tablet 09/03/17 Gabapentin 300 mg PO TID #60 capsule 09/22/17 oxyCODONE [Roxicodone] 5 mg PO Q4-6H PRN #20 tablet 09/22/17 - Allergies Allergies/Adverse Reactions: Allergies Allergy/AdvReac Type Severity Reaction Status Date / Time droperidol AdvReac Unknown Verified 09/22/17 14:09 - Social History Does the pt smoke?: No Smoking Status: Never smoker Does the pt drink ETOH?: No Does the pt have substance abuse?: No - Family History Family history: reports: CAD - Immunizations Immunizations are current?: Yes - POLST Patient has POLST: No POLST Status: Full Code PD ED PE NORMAL - Vitals Vital signs reviewed: Yes (BP and heart rate elevated) - General General: Alert and oriented X 3, No acute distress, Well developed/nourished - HEENT HEENT: Pharynx benign - Neck Neck: Supple, no meningeal sign, No adenopathy, No JVD - Cardiac Cardiac: RRR, No murmur - Respiratory Respiratory: Clear bilaterally - Abdomen Abdomen: Normal bowel sounds, Soft, Non tender, Non distended - Back Back: No CVA TTP - Derm Derm: Normal color, Warm and dry - Extremities Extremities: No tenderness to palpate, Normal ROM s pain, No edema, No calf tenderness / cord - Neuro Neuro: Alert and oriented X 3, No motor deficit, Normal speech, Other (less sensation posterior legs and lateral lower legs both sides c/w nerve root) Eye Opening: Spontaneous Motor: Obeys Commands Verbal: Oriented GCS Score: 15 - Psych Psych: Normal mood, Normal affect Results - Vitals Vitals: Vital Signs - 24 hr 09/22/17 09/22/17 09/22/17 14:04 14:55 15:30 Temperature 35.8 C L 36.9 C 36.9 C Heart Rate 133 H 110 H 99 Respiratory 18 18 18 Rate Blood Pressure 186/122 H 174/126 H 146/110 H O2 Saturation 99 100 100 Oxygen O2 Source Room air - EKG (time done) 14:16 Rate: Rate (enter#) (118) Rhythm: Sinus tachycardia [place]: Normal QRS: Normal Ischemia: ST depression (anterolateral leads, similar to prior ECG. ). No: ST elevation c/w ischemia Compare to prior EKG: Unchanged from prior EKG (from 09/02/17) PD MEDICAL DECISION MAKING - ED course Complexity details: considered differential (ongoing chest pain per patient, and was not his reason for coming. He says it is the same as it was when hospitalized and cared for by Cardiology and since discharge. Back pain with sciatica is similar to symptoms he has had longer term, but now down right back of leg too. Out of some meds, so will write Rx for Gabapentin and some pain meds for the back. Will increase his metoprolol for now, and has appt with Cardiology in 2 days. ), d/w patient Departure - Departure Disposition: 01 Home, Self Care Clinical Impression: Low back pain Qualifiers: Chronicity: chronic Back pain laterality: unspecified Sciatica presence: with sciatica Sciatica laterality: bilateral sciatica Qualified Code(s): M54.41 - Lumbago with sciatica, right side Hypertension Qualifiers: Hypertension type: unspecified Qualified Code(s): I10 - Essential (primary) hypertension Chest pain Qualifiers: Chest pain type: precordial pain Qualified Code(s): R07.2 - Precordial pain Instructions: ED Chest Pain Angina Stable, ED Sciatica Follow-Up: Chad Adams MD [Primary Care Provider] - Prescriptions: Gabapentin 300 mg PO TID #60 capsule oxyCODONE [Roxicodone] 5 mg PO Q4-6H PRN #20 tablet PRN Reason: Pain Comments: Continue your current heart medication of isosorbide daily. Increase your metoprolol from the dose at bedtime to adding also a half a dose in the morning. Resume your gabapentin for the back and I wrote a prescription to bridge until you can get in to your primary care. Add oxycodone if needed for back pain. Follow-up with cardiology on as planned regarding the ongoing chest pains. Follow up with your PMD regarding the back pain. The numbness down both legs would suggest the position of your disc is hitting both sides rather than just the previous numbness down the left side. Discharge Date/Time: 09/22/17 15:39
[2017-09-22 15:34] VITALS: BP 146/110
== END 2017-09-22 15:39 | disposition home or self-care (01) ==
LOC: ED 14:00
DX: M54.41 Lumbago with sciatica, right side (principal); I10 Essential (primary) hypertension; R07.2 Precordial pain; E78.00 Pure hypercholesterolemia, unspecified; I25.119 Atherosclerotic heart disease of native coronary artery with unspecified angina pectoris; E11.9 Type 2 diabetes mellitus without complications; Z79.84 Long term (current) use of oral hypoglycemic drugs
CPT/HCPCS: 93005; 99283; A9270

== ENCOUNTER 2017-09-24 18:53 | Emergency (ER) | payer MEDICAID ==
[2017-09-24 19:24] LABS: BASOPHILS # (AUTO) 0.1 10^3/uL (0.0-0.1); BASOPHILS % (AUTO) 0.7 %; EOSINOPHILS # (AUTO) 0.2 10^3/uL (0.0-0.7); EOSINOPHILS % (AUTO) 1.9 %; LYMPHOCYTES # (AUTO) 1.8 10^3/uL (1.5-3.5); LYMPHOCYTES % (AUTO) 19.1 %; MEAN CORPUSCULAR HEMOGLOBIN 28.6 pg (27.0-31.0); MEAN CORPUSCULAR VOLUME 86.6 fL (80.0-94.0); MONOCYTES # (AUTO) 0.8 10^3/uL (0.0-1.0); MONOCYTES % (AUTO) 8.1 %; NEUTROPHILS # (AUTO) 6.8 10^3/uL (1.5-6.6); NEUTROPHILS % (AUTO) 70.2 %; PLT - PLATELET COUNT 204 10^3/uL (130-450); RED BLOOD COUNT 4.89 10^6/uL (4.70-6.10); RED CELL DISTRIBUTION WIDTH 12.7 % (12.0-15.0); WHITE BLOOD COUNT 9.6 x10^3/uL (4.8-10.8)
[2017-09-24] MEDS ORDERED: METOPROLOL 5 MG/5 ML VIAL IVP STA (19:26)
[2017-09-24] MEDS ORDERED: ASPIRIN CHEW 81 MG TABLET PO STA (19:26)
--- NOTE | 2017-09-24 19:29 | ED Physician Documentation ---
PD HPI CHEST PAIN - Stated complaint Stated Complaint: CHEST PX - Chief complaint Chief Complaint: Cardiac - History obtained from History obtained from: Patient - History of Present Illness Timing - onset: Other (He was admitted early this month with chest pain and had a positive stress test. He was transferred up to [facility] where he had a coronary angiogram showing some nonocclusive disease and then a area of occlusive disease in the second diagonal artery that is being medically managed. He has had daily chest pain ever since but today the pain was worse and longer lasting, nonradiating substernal chest pressure that has been constant since 9 AM today. This is despite taking an extra dose of his imdur) Review of Systems Ten Systems: 10 systems reviewed and negative Constitutional: reports: Reviewed and negative Nose: reports: Reviewed and negative Cardiac: reports: Chest pain / pressure. denies: Palpitations, Pedal edema, Calf pain Respiratory: denies: Dyspnea, Cough PD PAST MEDICAL HISTORY - Past Medical History Cardiovascular: Hypertension, High cholesterol, Coronary artery disease, Angina Respiratory: None Neuro: None Endocrine/Autoimmune: Type 2 diabetes GI: None : None HEENT: None Psych: Depression, Anxiety, ADD/ADHD Musculoskeletal: Chronic back pain Derm: None - Past Surgical History Past Surgical History: Yes Cardiovascular: Cardiac catheterization - Present Medications Home Medications: Ambulatory Orders Medication Instructions Recorded Confirmed cloNIDine [Catapres] 0.1 tab PO QPM 05/06/14 09/02/17 Sertraline [Zoloft] 200 mg PO DAILY 12/18/16 09/02/17 Gabapentin 900 mg PO TID 09/02/17 09/02/17 metFORMIN [Glucophage] 500 mg PO BID 09/02/17 09/02/17 Atorvastatin [Lipitor] 40 mg PO QPM 09/24/17 Isosorbide Mononitrate ER [Imdur] 60 mg PO DAILY #30 tablet 09/24/17 Isosorbide Mononitrate [Isosorbide 30 mg PO 09/24/17 Mononitrate ER] [place] BID 09/24/17 Metoprolol Succinate [Toprol Xl] 50 mg PO QPM #30 tab.er.24h 09/24/17 Metoprolol Succinate [Toprol Xl] 100 mg PO DAILY 09/24/17 - Allergies Allergies/Adverse Reactions: Allergies Allergy/AdvReac Type Severity Reaction Status Date / Time droperidol AdvReac Unknown Verified 09/24/17 19:04 - Living Situation Living Situation: reports: Alone - Social History Does the pt smoke?: No Smoking Status: Never smoker Does the pt drink ETOH?: No Does the pt have substance abuse?: No - Family History Family history: reports: Non contributory - Immunizations Immunizations are current?: Yes - POLST Patient has POLST: No POLST Status: Full Code PD ED PE NORMAL - Vitals Vital signs reviewed: Yes - General General: Alert and oriented X 3, No acute distress - HEENT HEENT: PERRL, EOMI - Neck Neck: Supple, no meningeal sign, No bony TTP - Cardiac Cardiac: RRR, No murmur - Respiratory Respiratory: No respiratory distress, Clear bilaterally - Abdomen Abdomen: Non tender - Extremities Extremities: No edema, No calf tenderness / cord - Neuro Neuro: Alert and oriented X 3, Normal speech Results - Vitals Vitals: Vital Signs - 24 hr 09/24/17 09/24/17 09/24/17 19:01 19:50 19:55 Temperature 36.9 C Heart Rate 84 79 80 Respiratory 18 13 13 Rate Blood Pressure 160/93 H 152/64 H 137/68 H O2 Saturation 96 94 95 09/24/17 09/24/17 09/24/17 20:00 20:13 20:15 Temperature Heart Rate 76 74 75 Respiratory 12 13 13 Rate Blood Pressure 116/65 143/84 H 144/77 H O2 Saturation 96 95 96 09/24/17 09/24/17 09/24/17 20:30 20:45 21:33 Temperature Heart Rate 76 74 86 Respiratory 14 17 16 Rate Blood Pressure 135/81 H 135/78 H 123/72 O2 Saturation 95 94 97 Oxygen O2 Source Room air - EKG (time done) 1900 Rate: Rate (enter#) (79) Rhythm: NSR, LAE [place]: Normal Ischemia: Non specific changes (Flat T waves especially laterally, less so inferiorly. There is no interval change from 2 days ago.) Compare to prior EKG: Unchanged from prior EKG Computer interpretation: Agree with computer - Labs Labs: Laboratory Tests 09/24/17 09/24/17 09/24/17 19:18 19:18 19:18 WBC 9.6 RBC 4.89 Hgb 14.0 Hct 42.4 MCV 86.6 MCH 28.6 MCHC 33.0 RDW 12.7 Plt Count 204 MPV 8.0 Neut # 6.8 H Lymph # 1.8 [place] # 0.8 Eos # 0.2 Baso # 0.1 Absolute Nucleated RBC 0.00 Nucleated RBC % 0.0 Sodium 137 Potassium 3.7 Chloride 103 Carbon Dioxide 25 Anion Gap 9.0 BUN 24 H Creatinine 1.2 Estimated GFR (MDRD) 64 L Glucose 207 H Calcium 9.4 Total Bilirubin 0.5 AST 52 H ALT 70 H Alkaline Phosphatase 58 Troponin I < 0.04 Total Protein 7.2 Albumin 4.1 Globulin 3.1 Albumin/Globulin Ratio 1.3 Lipase 21 L 09/24/17 21:05 WBC RBC Hgb Hct MCV MCH MCHC RDW Plt Count MPV Neut # Lymph # [place] # Eos # Baso # Absolute Nucleated RBC Nucleated RBC % Sodium Potassium Chloride Carbon Dioxide Anion Gap BUN Creatinine Estimated GFR (MDRD) Glucose Calcium Total Bilirubin AST ALT Alkaline Phosphatase Troponin I < 0.04 Total Protein Albumin Globulin Albumin/Globulin Ratio Lipase PD MEDICAL DECISION MAKING - ED course ED course: 47-year-old gentleman with medically managed coronary disease presents with constant worse chest pain for the last 10 hours. His EKG is unchanged from prior and 2 troponins done in the emergency department at hours 10 and 12 constant pain or undetectable suggesting against an anginal cause of his pain. Case was discussed by phone with cardiology, Dr. Archuleta at [facility] who recommended medication adjustments as documented Departure - Departure Disposition: 01 Home, Self Care Clinical Impression: Atypical chest pain Condition: Good Record reviewed to determine appropriate education?: Yes Instructions: ED Chest Pain NonCardiac Prescriptions: Isosorbide Mononitrate ER [Imdur] 60 mg PO DAILY #30 tablet Metoprolol Succinate [Toprol Xl] 50 mg PO QPM #30 tab.er.24h Comments: I spoke with Dr. Archuleta, the irrigation supervisor on-call for years tonight. He wants me to increase your imdur to 60 mg once a day, a prescription for this is written. He also wants to increase your metoprolol, 100 mg in the morning which you are already taking, and now 50 mg in the evening as well. The 50 mg prescription is included. Follow-up with your irrigation supervisor as scheduled. Return if worse. Discharge Date/Time: 09/24/17 21:37
--- NOTE | 2017-09-24 19:30 | XRAY Preliminary Report ---
Exam: XR CHEST 1 VIEW X-RAY IMPRESSION: Normal single view chest. [facility] SITE ID: [id number]
[2017-09-24 19:38] LABS: ALBUMIN 4.1 g/dL (3.2-5.5); ALBUMIN/GLOBULIN RATIO 1.3 (1.0-2.2); BILIRUBIN,TOTAL 0.5 mg/dL (0.2-1.0); CALCIUM 9.4 mg/dL (8.5-10.3); CREATININE 1.2 mg/dL (0.6-1.2); TOTAL PROTEIN 7.2 g/dL (6.7-8.2)
--- NOTE | 2017-09-24 19:52 | XRAY Report ---
EXAM: CHEST RADIOGRAPHY EXAM DATE: 09/24/2017 07:25 PM. CLINICAL HISTORY: Chest pain. COMPARISON: 09/02/2017. TECHNIQUE: 1 view. FINDINGS: Lungs/Pleura: No focal opacities evident. No pleural effusion. No pneumothorax. Mediastinum: Within exam limitations, the cardiomediastinal contour is normal. Other: Remote cervical spine fusion. IMPRESSION: Normal single view chest. [facility] Referring Provider Line: [phone] SITE ID: [id number]
[2017-09-24] MEDS ORDERED: ASPIRIN CHEW 81 MG TABLET ONE (19:56)
[2017-09-24] MEDS ORDERED: NITROGLYCERIN SL 0.4 MG TABLET SL STA (19:59)
[2017-09-24 21:34] VITALS: BP 123/72
== END 2017-09-24 21:37 | disposition home or self-care (01) ==
LOC: ED 18:53
DX: R07.89 Other chest pain (principal); I25.10 Atherosclerotic heart disease of native coronary artery without angina pectoris; I10 Essential (primary) hypertension; E11.9 Type 2 diabetes mellitus without complications; E78.00 Pure hypercholesterolemia, unspecified; Z79.84 Long term (current) use of oral hypoglycemic drugs
CPT/HCPCS: 36415; 71045; 80053; 83690; 84484; 85025; 93005; 96374; 99284; A9270

== ENCOUNTER 2017-10-25 14:26 | Emergency (ER) | payer MEDICAID ==
[2017-10-25] MEDS ORDERED: KETOROLAC 60 MG/2 ML VIAL IM STA (14:52)
[2017-10-25] MEDS ORDERED: DEXAMETHASONE 10 MG/ML VIAL PO STA (14:52)
[2017-10-25] MEDS ORDERED: HYDROmorphone 1 MG/ML CARPUJECT IM STA (14:52)
[2017-10-25] MEDS ORDERED: CYCLOBENZAPRINE 10 MG TABLET PO STA (14:53)
--- NOTE | 2017-10-25 15:58 | XRAY Report ---
EXAM: LUMBOSACRAL SPINE RADIOGRAPHY EXAM DATE: 10/25/2017 03:36 PM. CLINICAL HISTORY: Low back pain s/p moving a transmission. COMPARISONS: 07/06/2017. TECHNIQUE: 3 views. FINDINGS: Alignment: Slight leftward curvature is likely positional. L5 pars interarticularis defects are nelly r demonstrated on prior exam. Minimal retrolisthesis of L5 on S1 unchanged. Bones: Five [id number] lumbar vertebral bodies are present. No acute fracture. Disks: Mild disk degeneration at L4-L5 and L5-S1. Facets: Mild L5-S1 facet arthrosis. Sacroiliac Joints: Unremarkable. Soft Tissues: Normal. The visualized bowel gas pattern is normal. IMPRESSION: 1. No evidence of acute fracture. 2. Mild lower lumbar disk degeneration and facet arthrosis. Grade 1 anterolisthesis L5 on S1 unchange d [facility] Referring Provider Line: [phone] SITE ID: [id number]
--- NOTE | 2017-10-25 16:06 | ED Physician Documentation ---
PD HPI BACK INJURY - Stated complaint Stated Complaint: LOWER BACK PX - History obtained from History obtained from: Patient - History of Present Illness Location: Right, Left, Lower Type of injury: Other (states pain started after moving a car transmission at work) Where injury occurred: Work Timing - onset: How many hours ago (1) Timing - duration: Hours (1) Timing - details: Abrupt onset Pain level max: 10 Pain level now: 10 Quality: Pain, Spasm, Aching, Similar to prior episodes Improved by: Rest Worsened by: Moving, Palpating Associated symptoms: No: Fever, Weakness, Numbness, Incontinent of urine, Unable to urinate, Hematuria, Incontinent of stool Similar symptoms before: Diagnosis (chronic back pain) Recently seen: Not recently seen Review of Systems Constitutional: denies: Fever, Chills Nose: denies: Rhinorrhea / runny nose, Congestion Respiratory: denies: Cough GI: denies: Abdominal Pain, Nausea, Vomiting, Diarrhea Skin: denies: Rash Musculoskeletal: reports: Back pain. denies: Neck pain Neurologic: denies: Focal weakness, Numbness, Headache PD PAST MEDICAL HISTORY - Past Medical History Cardiovascular: Hypertension, High cholesterol, Coronary artery disease, Angina Respiratory: None Neuro: None Endocrine/Autoimmune: Type 2 diabetes GI: None : None HEENT: None Psych: Depression, Anxiety, ADD/ADHD Musculoskeletal: Chronic back pain Derm: None - Past Surgical History Past Surgical History: Yes Cardiovascular: Cardiac catheterization - Present Medications Home Medications: Ambulatory Orders Medication Instructions Recorded Confirmed cloNIDine [Catapres] 0.1 tab PO QPM 05/06/14 09/02/17 Sertraline [Zoloft] 200 mg PO DAILY 12/18/16 09/02/17 Gabapentin 900 mg PO TID 09/02/17 09/02/17 metFORMIN [Glucophage] 500 mg PO BID 09/02/17 09/02/17 Atorvastatin [Lipitor] 40 mg PO QPM 09/24/17 Isosorbide Mononitrate ER [Imdur] 60 mg PO DAILY #30 tablet 09/24/17 Isosorbide Mononitrate [Isosorbide 30 mg PO 09/24/17 Mononitrate ER] Lovasa BID 09/24/17 Metoprolol Succinate [Toprol Xl] 50 mg PO QPM #30 tab.er.24h 09/24/17 Metoprolol Succinate [Toprol Xl] 100 mg PO DAILY 09/24/17 Cyclobenzaprine [Flexeril] 10 mg PO TID PRN #20 tablet 10/25/17 Meloxicam [Mobic] 15 mg PO DAILY PRN #20 tablet 10/25/17 Oxycodone HCl/Acetaminophen 1 - 2 each PO Q6H PRN #14 tablet 10/25/17 [Percocet 5-325 mg Tablet] predniSONE [Prednisone] 40 mg PO DAILY #10 tablet 10/25/17 - Allergies Allergies/Adverse Reactions: Allergies Allergy/AdvReac Type Severity Reaction Status Date / Time droperidol AdvReac Unknown Verified 10/25/17 14:35 - Social History Does the pt smoke?: No Smoking Status: Never smoker Does the pt drink ETOH?: No Does the pt have substance abuse?: No - Immunizations Immunizations are current?: Yes - POLST Patient has POLST: No POLST Status: Full Code PD ED PE NORMAL - Vitals Vital signs reviewed: Yes - General General: Alert and oriented X 3, No acute distress - HEENT HEENT: Moist mucous membranes - Neck Neck: Supple, no meningeal sign - Cardiac Cardiac: RRR - Respiratory Respiratory: No respiratory distress, Clear bilaterally - Abdomen Abdomen: Soft, Non tender, Non distended - Back Back: Other (low lumbar TTP, no step off or deformity. NVI. Paraspinal spasm present. ) - Derm Derm: Warm and dry - Neuro Neuro: Alert and oriented X 3 - Psych Psych: Normal mood, Normal affect Results - Vitals Vitals: Vital Signs - 24 hr 10/25/17 10/25/17 10/25/17 14:34 16:09 16:30 Temperature 36 C L 36.2 C L Heart Rate 110 H 92 Respiratory 18 17 Rate Blood Pressure 149/84 H 148/60 H 121/75 O2 Saturation 98 100 Oxygen O2 Source Room air - Rads (name of study) L spine xray Radiology: Prelim report reviewed, EMP read contemporaneously, See rad report ( No evidence of acute fracture. Mild lower lumbar disk degeneration and facet arthrosis. Grade 1 anterolisthesis L5 on S1 unchanged ) PD MEDICAL DECISION MAKING - ED course Complexity details: reviewed results, re-evaluated patient, considered differential (no cauda equina, no spinal epidural abscess, no fracture, no aortic dissection or evidence of aneursym rupture), d/w patient, d/w family ED course: Patient is a 47-year-old male with long history of chronic back pain. Acute exacerbation today. Given pain medication in the emergency department and feels much better. Able to ambulate relatively well, but still has some pain. No acute findings on x-ray. Will prescribe pain medication for home and follow- up with his doctor. Patient counseled regarding signs and symptoms for which I believe and urgent re-evaluation would be necessary. Patient with good understanding of and agreement to plan and is comfortable going home at this time This document was made in part using voice recognition software. While efforts are made to proofread this document, sound alike and grammatical errors may occur. Departure - Departure Disposition: 01 Home, Self Care Clinical Impression: Low back strain Qualifiers: Encounter type: initial encounter Qualified Code(s): S39.012A - Strain of muscle, fascia and tendon of lower back, initial encounter Condition: Good Instructions: ED Low Back Pain Injury Follow-Up: Chad Adams MD [Primary Care Provider] - Within 1 week Prescriptions: Cyclobenzaprine [Flexeril] 10 mg PO TID PRN #20 tablet PRN Reason: Spasms Meloxicam [Mobic] 15 mg PO DAILY PRN #20 tablet PRN Reason: pain Oxycodone HCl/Acetaminophen [Percocet 5-325 mg Tablet] 1 - 2 each PO Q6H PRN # 14 tablet PRN Reason: pain predniSONE [Prednisone] 40 mg PO DAILY #10 tablet Comments: Your x-rays are normal today. Go home and rest. This should improve over the next 2-3 days. Do not drink alcohol or drive while on narcotic pain medicine. Note that many narcotic pain relievers also contain tylenol/acetaminophen. Please ensure that your total dose of acetaminophen from all sources does not exceed 3 grams (3000mg) per day. You may constipated on this medication, take a stool softener such as "Colace" twice a day while you are on it. Also recommend a [id number]-olohhhu laxative such as senna or MiraLAX any day that you do not have a bowel movement. If you received narcotic pain medication in the emergency department, do not drive or operate machinery for the next 24 hours. Discharge Date/Time: 10/25/17 16:30
[2017-10-25 16:31] VITALS: BP 121/75
== END 2017-10-25 16:30 | disposition home or self-care (01) ==
LOC: ED 14:26
DX: S39.012A Strain of muscle, fascia and tendon of lower back, initial encounter (principal); X50.0XXA Overexertion from strenuous movement or load, initial encounter; Y99.0 Civilian activity done for income or pay; I10 Essential (primary) hypertension; E78.00 Pure hypercholesterolemia, unspecified; I25.119 Atherosclerotic heart disease of native coronary artery with unspecified angina pectoris; E11.9 Type 2 diabetes mellitus without complications; Z79.84 Long term (current) use of oral hypoglycemic drugs
CPT/HCPCS: 72100; 96372; 99283; A9270; J1170

== ENCOUNTER 2017-11-25 17:36 | Emergency (ER) | payer MEDICAID ==
--- NOTE | 2017-11-25 20:14 | ED Physician Documentation ---
PD HPI MALE - Stated complaint Stated Complaint: MALE - Chief complaint Chief Complaint: Abd Pain - History obtained from History obtained from: Patient - History of Present Illness Timing - onset: How many days ago (few) Timing - duration: Days (few) Timing - details: Abrupt onset (he was doing yardwork and lifting on Thursday and felt onset of inguinal pain. Noted a lump there later. The lump has improved but still hurts at inguinal area.), Still present Associated symptoms: Abdominal pain (inguinal area). No: Dysuria, Urinary frequency, Discharge, Genital sore / lesion, Scrotal swelling Similar symptoms before: Has not had sx before Recently seen: Not recently seen Review of Systems Constitutional: denies: Fever, Chills Nose: denies: Rhinorrhea / runny nose, Congestion Throat: denies: Sore throat Respiratory: denies: Cough GI: denies: Nausea, Vomiting, Constipation, Diarrhea : denies: Dysuria, Frequency PD PAST MEDICAL HISTORY - Past Medical History Past Medical History: Yes Cardiovascular: Hypertension, High cholesterol, Coronary artery disease, Angina Respiratory: None Endocrine/Autoimmune: Type 2 diabetes GI: None : None HEENT: None Psych: Depression, Anxiety, ADD/ADHD Musculoskeletal: Chronic back pain Derm: None - Past Surgical History Past Surgical History: Yes Cardiovascular: Cardiac catheterization - Present Medications Home Medications: Ambulatory Orders Medication Instructions Recorded Confirmed Sertraline [Zoloft] 200 mg PO DAILY 12/18/16 09/02/17 Gabapentin 900 mg PO TID 09/02/17 09/02/17 metFORMIN [Glucophage] 500 mg PO BID 09/02/17 09/02/17 Lovasa BID 09/24/17 HYDROcod/ACETAM 5/325 [[place] 5/325] 1 tab PO Q6H PRN #15 tablet 11/25/17 Naproxen 375 mg PO BID #20 tablet 11/25/17 - Allergies Allergies/Adverse Reactions: Allergies Allergy/AdvReac Type Severity Reaction Status Date / Time droperidol AdvReac Unknown Verified 10/25/17 14:35 - Social History Does the pt smoke?: No Smoking Status: Never smoker Does the pt drink ETOH?: No Does the pt have substance abuse?: No - Immunizations Immunizations are current?: Yes - POLST Patient has POLST: No POLST Status: Full Code PD ED PE NORMAL - Vitals Vital signs reviewed: Yes - General General: Alert and oriented X 3, No acute distress (but is a bit anxious), Well developed/nourished - Cardiac Cardiac: RRR, No murmur - Respiratory Respiratory: Clear bilaterally - Abdomen Abdomen: Normal bowel sounds, Soft, Non tender, Non distended, No organomegaly - Male Male : Other (genitalia normal without abnormal scrotal/testicle tenderness. inguinal area without obvious swelling/mass. No feel of hernia at inguinal canal with stomach tightening. ) - Derm Derm: Normal color, Warm and dry, No rash - Neuro Neuro: Alert and oriented X 3, No motor deficit, Normal speech Results - Vitals Vitals: Oxygen O2 Source Room air PD MEDICAL DECISION MAKING - ED course Complexity details: considered differential (I don't feel a hernia nor other soft tissue abnormal (nodes) at the inguinal area. Presume muscle/ligament strain, though could be strain of inguinal ring tissue. ), d/w patient Departure - Departure Disposition: Home, Self Care Clinical Impression: Strain of right inguinal muscle Qualifiers: Encounter type: initial encounter Qualified Code(s): S39.013A - Strain of muscle, fascia and tendon of pelvis, initial encounter Clinical Impression: (Ruled Out): Inguinal hernia Condition: Stable Record reviewed to determine appropriate education?: Yes Instructions: ED Strain Groin Follow-Up: JOSHUA CARDENAS I [Primary Care Provider] - Junior Gay MD [Provider Admit Priv/Credential] - Prescriptions: HYDROcod/ACETAM 5/325 [[place] 5/325] 1 tab PO Q6H PRN #15 tablet PRN Reason: Pain Naproxen 375 mg PO BID #20 tablet Comments: Minimal heavy lifting and vigorous activity. It seems like a strain of the inguinal ligament and muscle. Naproxen twice daily for 7-10 days. Add pain medicine if needed. Recheck with your primary care if not improved over the next week. If you feel a bulge or continued pain in through the area you could follow-up with surgery to discuss or evaluate for small hernia. Recheck if you have worse pain in the area, a tender lump, nausea vomiting or fevers, or other concerns. Discharge Date/Time: 11/25/17 21:24
[2017-11-25] MEDS ORDERED: HYDROcod/ACETAM 5/325 MG TABLET PO STA (20:47)
[2017-11-25] MEDS ORDERED: NAPROXEN 250 MG TABLET PO STA (20:47)
[2017-11-25 21:24] VITALS: BP 139/91
== END 2017-11-25 21:24 | disposition home or self-care (01) ==
LOC: ED 17:36
DX: S39.013A Strain of muscle, fascia and tendon of pelvis, initial encounter (principal); X50.0XXA Overexertion from strenuous movement or load, initial encounter; Y93.H2 Activity, gardening and landscaping; I10 Essential (primary) hypertension; E78.00 Pure hypercholesterolemia, unspecified; I25.119 Atherosclerotic heart disease of native coronary artery with unspecified angina pectoris; E11.9 Type 2 diabetes mellitus without complications; Z79.84 Long term (current) use of oral hypoglycemic drugs
CPT/HCPCS: 99283; A9270

== ENCOUNTER 2018-01-04 18:03 | Emergency (ER) | payer OTHER, MEDICAID ==
[2018-01-04] MEDS ORDERED: CYCLOBENZAPRINE 10 MG TABLET PO STA (19:07)
[2018-01-04] MEDS ORDERED: HYDROcod/ACETAM 5/325 MG TABLET PO STA (19:07)
--- NOTE | 2018-01-04 19:10 | ED Physician Documentation ---
History of Present Illness - Stated complaint Stated Complaint: BACK PX - Chief complaint Chief Complaint: Back Pain - History obtained from History obtained from: Patient - History of Present Illness Timing: Today Pain level max: 8 Pain level now: 8 Improved by: rest Worsened by: movement - Additonal information Additional information: Patient with chronic back pain. States reinjured it at work. States just on gabapentin for pain. States had sharp shooting pains down the bilateral lower extremity. No numbness. No loss of bowel or bladder control. No IV drug use. No fevers. Review of Systems Ten Systems: 10 systems reviewed and negative Constitutional: denies: Fever, Chills Ears: denies: Ear pain Nose: denies: Rhinorrhea / runny nose, Congestion PD PAST MEDICAL HISTORY - Past Medical History Past Medical History: Yes Cardiovascular: Hypertension, High cholesterol, Coronary artery disease, Angina Respiratory: None Endocrine/Autoimmune: Type 2 diabetes GI: None : None HEENT: None Psych: Depression, Anxiety, ADD/ADHD Musculoskeletal: Chronic back pain Derm: None - Past Surgical History Past Surgical History: Yes Cardiovascular: Cardiac catheterization - Present Medications Home Medications: Ambulatory Orders Medication Instructions Recorded Confirmed Sertraline [Zoloft] 200 mg PO DAILY 12/18/16 09/02/17 Gabapentin 900 mg PO TID 09/02/17 09/02/17 metFORMIN [Glucophage] 500 mg PO BID 09/02/17 09/02/17 Cyclobenzaprine [Flexeril] 10 mg PO TID PRN #20 tablet 01/04/18 Hydrocodone/Acetaminophen 1 - 2 each PO Q6H PRN #12 tablet 01/04/18 [Hydrocodon-Acetaminophen 5-325] Meloxicam [Mobic] 15 mg PO DAILY PRN #20 tablet 01/04/18 Metoprolol Succinate 50 mg PO DAILY 01/04/18 01/04/18 cloNIDine [Catapres] 0.1 mg PO BID 01/04/18 01/04/18 - Allergies Allergies/Adverse Reactions: Allergies Allergy/AdvReac Type Severity Reaction Status Date / Time droperidol AdvReac Unknown Verified 01/04/18 18:15 - Social History Does the pt smoke?: No Smoking Status: Never smoker Does the pt drink ETOH?: No Does the pt have substance abuse?: No - Immunizations Immunizations are current?: Yes - POLST Patient has POLST: No POLST Status: Full Code PD ED PE NORMAL - Vitals Vital signs reviewed: Yes - General General: Alert and oriented X 3, Well developed/nourished - HEENT HEENT: PERRL, Moist mucous membranes - Neck Neck: Supple, no meningeal sign, No bony TTP - Cardiac Cardiac: RRR, Strong equal pulses - Respiratory Respiratory: No respiratory distress, Clear bilaterally - Abdomen Abdomen: Soft, Non tender, Non distended - Back Back: No spinal TTP, Other (No midline tenderness to palpation or percussion over the thoracic or lumbar spines. Does have paraspinal spasm.) - Derm Derm: Warm and dry - Extremities Extremities: Normal ROM s pain, No edema, Other (normal bilateral lower extremity patellar and ankle jerk reflexes. Normal great toe extension bilaterally) - Neuro Neuro: Alert and oriented X 3, No motor deficit, No sensory deficit, Other (No saddle anesthesia) - Psych Psych: Normal mood, Normal affect Results - Vitals Vitals: Vital Signs - 24 hr 01/04/18 01/04/18 18:12 19:22 Temperature 36.6 C Heart Rate 96 90 Respiratory 18 16 Rate Blood Pressure 171/100 H 145/94 H O2 Saturation 98 100 Oxygen O2 Source Room air PD MEDICAL DECISION MAKING - ED course Complexity details: reviewed results, re-evaluated patient, considered differential (no cauda equina, no spinal epidural abscess, no fracture, no aortic dissection or evidence of aneursym rupture), d/w patient ED course: Patient is a 47-year-old male who presents to the emergency department with acute on chronic back pain. Will prescribe a small amount of narcotic pain medication for him and have him follow-up with his doctor for further medication refills. No evidence of cauda equina, epidural abscess, fracture. Patient is ambulating well. Patient counseled regarding signs and symptoms for which I believe and urgent re-evaluation would be necessary. Patient with good understanding of and agreement to plan and is comfortable going home at this time This document was made in part using voice recognition software. While efforts are made to proofread this document, sound alike and grammatical errors may occur. - Sepsis Event Vital Signs: Vital Signs - 24 hr 01/04/18 01/04/18 18:12 19:22 Temperature 36.6 C Heart Rate 96 90 Respiratory 18 16 Rate Blood Pressure 171/100 H 145/94 H O2 Saturation 98 100 Oxygen O2 Source Room air Departure - Departure Disposition: 01 Home, Self Care Clinical Impression: Sciatica Qualifiers: Laterality: bilateral Qualified Code(s): M54.31 - Sciatica, right side Condition: Good Instructions: ED Sciatica Follow-Up: Colin Gonsalez MD [Primary Care Provider] - Within 3 Days Prescriptions: Cyclobenzaprine [Flexeril] 10 mg PO TID PRN #20 tablet PRN Reason: Spasms Hydrocodone/Acetaminophen [Hydrocodon-Acetaminophen 5-325] 1 - 2 each PO Q6H PRN #12 tablet PRN Reason: pain Meloxicam [Mobic] 15 mg PO DAILY PRN #20 tablet PRN Reason: pain Comments: Return if you worsen. This should improve over the next few days. Make sure to follow-up with your doctor for further care. Do not drink alcohol or drive while on narcotic pain medicine. Note that many narcotic pain relievers also contain tylenol/acetaminophen. Please ensure that your total dose of acetaminophen from all sources does not exceed 3 grams (3000mg) per day. You may constipated on this medication, take a stool softener such as "Colace" twice a day while you are on it. Also recommend a [id number] laxative such as senna or MiraLAX any day that you do not have a bowel movement. If you received narcotic pain medication in the emergency department, do not drive or operate machinery for the next 24 hours. Forms: Activity restrictions Discharge Date/Time: 01/04/18 19:24
[2018-01-04 19:23] VITALS: BP 145/94
== END 2018-01-04 19:24 | disposition home or self-care (01) ==
LOC: ED 18:03
DX: M54.31 Sciatica, right side (principal); G89.29 Other chronic pain; I25.10 Atherosclerotic heart disease of native coronary artery without angina pectoris; I10 Essential (primary) hypertension; E78.00 Pure hypercholesterolemia, unspecified; E11.9 Type 2 diabetes mellitus without complications; Z79.84 Long term (current) use of oral hypoglycemic drugs
CPT/HCPCS: 99283; A9270

== ENCOUNTER 2018-01-10 12:45 | Emergency (ER) | payer MEDICAID ==
[2018-01-10 12:53] VITALS: BP 148/92
--- NOTE | 2018-01-10 13:40 | ED Physician Documentation ---
History of Present Illness - Stated complaint Stated Complaint: SOA - Chief complaint Chief Complaint: Resp - History obtained from History obtained from: Patient - History of Present Illness Timing: Last night Pain level max: 0 Pain level now: 0 Improved by: normally albuterol helps Worsened by: nothing - Additonal information Additional information: 47 year old male out of his albuterol. States felt short of breath last night. no cough, no fever. no chest pain. Review of Systems Constitutional: denies: Fever, Chills Ears: denies: Ear pain Nose: denies: Rhinorrhea / runny nose, Congestion Throat: denies: Sore throat Cardiac: denies: Chest pain / pressure Respiratory: reports: Dyspnea Skin: denies: Rash Musculoskeletal: denies: Neck pain, Back pain Neurologic: denies: Headache PD PAST MEDICAL HISTORY - Past Medical History Cardiovascular: Hypertension, High cholesterol, Coronary artery disease, Angina Respiratory: None Endocrine/Autoimmune: Type 2 diabetes GI: None : None HEENT: None Psych: Depression, Anxiety, ADD/ADHD Musculoskeletal: Chronic back pain Derm: None - Past Surgical History Past Surgical History: Yes Cardiovascular: Cardiac catheterization - Present Medications Home Medications: Ambulatory Orders Medication Instructions Recorded Confirmed Sertraline [Zoloft] 200 mg PO DAILY 12/18/16 09/02/17 Gabapentin 900 mg PO TID 09/02/17 09/02/17 metFORMIN [Glucophage] 500 mg PO BID 09/02/17 09/02/17 Metoprolol Succinate 50 mg PO DAILY 01/04/18 01/04/18 cloNIDine [Catapres] 0.1 mg PO BID 01/04/18 01/04/18 Albuterol Sulf [Ventolin Hfa 1 - 2 puffs INH Q4HR PRN #1 inhaler 01/10/18 Inhaler] - Allergies Allergies/Adverse Reactions: Allergies Allergy/AdvReac Type Severity Reaction Status Date / Time droperidol AdvReac Unknown Verified 01/10/18 12:52 - Social History Does the pt smoke?: No Smoking Status: Never smoker Does the pt drink ETOH?: No Does the pt have substance abuse?: No - Immunizations Immunizations are current?: Yes - POLST Patient has POLST: No POLST Status: Full Code PD ED PE NORMAL - Vitals Vital signs reviewed: Yes - General General: Alert and oriented X 3 - HEENT HEENT: Moist mucous membranes - Neck Neck: Supple, no meningeal sign - Cardiac Cardiac: RRR, Strong equal pulses - Respiratory Respiratory: No respiratory distress, Other (mild diminished BS bilaterally.) - Abdomen Abdomen: Soft, Non tender, Non distended - Derm Derm: Warm and dry - Neuro Neuro: Alert and oriented X 3 - Psych Psych: Normal mood, Normal affect Results - Vitals Vitals: Vital Signs - 24 hr 01/10/18 12:51 Temperature 36.3 C L Heart Rate 79 Respiratory 16 Rate Blood Pressure 148/92 H O2 Saturation 99 Oxygen O2 Source Room air PD MEDICAL DECISION MAKING - ED course Complexity details: considered differential, d/w patient ED course: Patient is a 47-year-old male who presents to the emergency department requesting a refill of his albuterol. No current respiratory distress. Normal oxygenation. Will refill his inhaler and follow-up with his doctor. No evidence of infection. Patient counseled regarding signs and symptoms for which I believe and urgent re-evaluation would be necessary. Patient with good understanding of and agreement to plan and is comfortable going home at this time This document was made in part using voice recognition software. While efforts are made to proofread this document, sound alike and grammatical errors may occur. - Sepsis Event Vital Signs: Vital Signs - 24 hr 01/10/18 12:51 Temperature 36.3 C L Heart Rate 79 Respiratory 16 Rate Blood Pressure 148/92 H O2 Saturation 99 Oxygen O2 Source Room air Departure - Departure Disposition: 01 Home, Self Care Clinical Impression: Asthma Qualifiers: Asthma severity: unspecified severity Asthma persistence: intermittent Asthma complication type: with acute exacerbation Qualified Code(s): J45.21 - Mild intermittent asthma with (acute) exacerbation Condition: Good Instructions: ED Reactive Airway Disease Follow-Up: Colin Gonsalez MD [Primary Care Provider] - Within 1 week Prescriptions: Albuterol Sulf [Ventolin Hfa Inhaler] 1 - 2 puffs INH Q4HR PRN #1 inhaler PRN Reason: Shortness Of Air/Wheezing Comments: Use the inhaler as prescribed. Return if you worsen.
== END 2018-01-10 13:45 | disposition home or self-care (01) ==
LOC: ED 12:45
DX: J45.21 Mild intermittent asthma with (acute) exacerbation (principal); I10 Essential (primary) hypertension; I25.10 Atherosclerotic heart disease of native coronary artery without angina pectoris; E78.00 Pure hypercholesterolemia, unspecified; E11.9 Type 2 diabetes mellitus without complications
CPT/HCPCS: 99283

== ENCOUNTER 2018-02-02 08:06 | Observation (INO) | payer MEDICAID ==
[2018-02-02] MEDS ORDERED: SODIUM CHLORIDE 0.9% 1,000 ML IV ONE (08:31)
[2018-02-02] MEDS ORDERED: METOPROLOL 5 MG/5 ML VIAL IVP STA (08:31)
[2018-02-02] MEDS ORDERED: NITROGLYCERIN SL 0.4 MG TABLET SL STA (08:31)
[2018-02-02] MEDS ORDERED: ASPIRIN CHEW 81 MG TABLET PO STA (08:31)
--- NOTE | 2018-02-02 08:34 | ED Physician Documentation ---
History of Present Illness - Stated complaint Stated Complaint: CHEST PAIN - Chief complaint Chief Complaint: Cardiac - Additonal information Additional information: hx from pt 47 male known CAD - had cath about 8 months ago at [facility] showing two smaller vessel occlusioins that could be stented and was managed medically on asa statin BB isosorbide stopped his isosorbiode a m ago 08/07 HAs awoke 530 AM with throbbing ant L chest pain diaphoretic no soa NV no leg swelling no cough no recent travel Review of Systems Constitutional: reports: Sweats. denies: Fever, Chills Cardiac: reports: Chest pain / pressure Respiratory: denies: Dyspnea GI: denies: Abdominal Pain, Nausea, Vomiting, Diarrhea Musculoskeletal: denies: Extremity pain, Extremity swelling Endocrine: denies: Easy bruising / bleeding Immunocompromised: denies: Immunocompromised PD PAST MEDICAL HISTORY - Past Medical History Cardiovascular: Hypertension, High cholesterol, Coronary artery disease, Angina Respiratory: None Endocrine/Autoimmune: Type 2 diabetes GI: None : None HEENT: None Psych: Depression, Anxiety, ADD/ADHD Musculoskeletal: Chronic back pain Derm: None - Past Surgical History Past Surgical History: Yes Cardiovascular: Cardiac catheterization - Present Medications Home Medications: Ambulatory Orders Medication Instructions Recorded Confirmed Sertraline [Zoloft] 200 mg PO DAILY 12/18/16 09/02/17 Gabapentin 900 mg PO TID 09/02/17 09/02/17 metFORMIN [Glucophage] 500 mg PO BID 09/02/17 09/02/17 Metoprolol Succinate 50 mg PO DAILY 01/04/18 01/04/18 cloNIDine [Catapres] 0.1 mg PO BID 01/04/18 01/04/18 Albuterol Sulf [Ventolin Hfa 1 - 2 puffs INH Q4HR PRN #1 inhaler 01/10/18 Inhaler] - Allergies Allergies/Adverse Reactions: Allergies Allergy/AdvReac Type Severity Reaction Status Date / Time droperidol AdvReac Unknown Verified 01/10/18 12:52 - Social History Does the pt smoke?: No Smoking Status: Never smoker Does the pt drink ETOH?: No Does the pt have substance abuse?: No - Immunizations Immunizations are current?: Yes - POLST Patient has POLST: No POLST Status: Full Code PD ED PE NORMAL - Vitals Vital signs reviewed: Yes - General General: Alert and oriented X 3, Other (diaphoretic) - HEENT HEENT: Atraumatic - Neck Neck: Supple, no meningeal sign - Cardiac Cardiac: RRR - Respiratory Respiratory: No respiratory distress, Clear bilaterally - Abdomen Abdomen: Soft, Non tender - Extremities Extremities: No edema, No calf tenderness / cord - Neuro Neuro: Alert and oriented X 3, No motor deficit, Normal speech Results - Vitals Vitals: Vital Signs - 24 hr 02/02/18 02/02/18 02/02/18 08:24 08:47 10:40 Temperature 36.1 C L Heart Rate 106 H 101 H 88 Respiratory 16 14 14 Rate Blood Pressure 188/96 H 137/88 H 136/93 H O2 Saturation 99 97 97 Oxygen O2 Source Room air - EKG (time done) 0814 Rate: Rate (enter#) (105) Rhythm: Sinus tachycardia Intervals: Prolonged QT (borderline) Ischemia: Other (diffusely flat t waves, Q III V1) 1032 Rate: Rate (enter#) (82) Rhythm: NSR [place]: Normal Intervals: Normal [place] QRS: Normal Ischemia: Normal ST segments - Labs Labs: Laboratory Tests 02/02/18 02/02/18 02/02/18 08:20 08:20 08:20 WBC 6.3 RBC 5.11 Hgb 15.3 Hct 45.8 MCV 89.7 MCH 29.9 MCHC 33.3 RDW 12.9 Plt Count 184 MPV 7.8 Neut # (Auto) 4.5 Lymph # (Auto) 1.2 L [place] # (Auto) 0.4 Eos # (Auto) 0.3 Baso # (Auto) 0.0 Absolute Nucleated RBC 0.00 Nucleated RBC % 0.0 Sodium 135 Potassium 3.6 Chloride 101 Carbon Dioxide 24 Anion Gap 10.0 BUN 15 Creatinine 1.0 Estimated GFR (MDRD) 79 L Glucose 215 H Calcium 9.1 Total Bilirubin 0.6 AST 44 H ALT 38 Alkaline Phosphatase 54 Troponin I < 0.04 Total Protein 7.3 Albumin 4.3 Globulin 3.0 Albumin/Globulin Ratio 1.4 Lipase 30 - Rads (name of study) CTPA Radiology: See rad report (no PE, no aneurysm, small airway dz, several low risk nodules consider rpt CT in a yr) PD MEDICAL DECISION MAKING - ED course ED course: known CAD with recurrent pain after stopping isosorbide non specific EKG 1st trop neg tachy so got CTPA which was neg for PE will obs for serial CE and stress echo and med management pt received asa nitro sl and paste morphine and lopressor called hospitalist at 1055 AM and called back right away and will obs for further cardiac eval - Sepsis Event Vital Signs: Vital Signs - 24 hr 02/02/18 02/02/18 02/02/18 08:24 08:47 10:40 Temperature 36.1 C L Heart Rate 106 H 101 H 88 Respiratory 16 14 14 Rate Blood Pressure 188/96 H 137/88 H 136/93 H O2 Saturation 99 97 97 Oxygen O2 Source Room air Departure - Departure Disposition: ED Place in Observation Clinical Impression: Chest pain Qualifiers: Chest pain type: unspecified Qualified Code(s): R07.9 - Chest pain, unspecified Comments: Some nodules were seen on your chest CT - the radiologist does not think they look concerning for cancer but suggests you get another CT in about a year to be sure they are not changing or growing
[2018-02-02 08:37] LABS: BASOPHILS % (AUTO) 0.7 %; EOSINOPHILS # (AUTO) 0.3 10^3/uL (0.0-0.7); EOSINOPHILS % (AUTO) 4.6 %; HGB - HEMOGLOBIN 15.3 g/dL (14.0-18.0); LYMPHOCYTES # (AUTO) 1.2 10^3/uL (1.5-3.5); LYMPHOCYTES % (AUTO) 18.3 %; MEAN CORPUSCULAR HEMOGLOBIN 29.9 pg (27.0-31.0); MEAN CORPUSCULAR HGB CONC 33.3 g/dL (32.0-36.0); MEAN CORPUSCULAR VOLUME 89.7 fL (80.0-94.0); MEAN PLATELET VOLUME 7.8 fL (7.4-11.4); MONOCYTES # (AUTO) 0.4 10^3/uL (0.0-1.0); NEUTROPHILS # (AUTO) 4.5 10^3/uL (1.5-6.6); NEUTROPHILS % (AUTO) 70.4 %; PLT - PLATELET COUNT 184 10^3/uL (130-450); RED BLOOD COUNT 5.11 10^6/uL (4.70-6.10); RED CELL DISTRIBUTION WIDTH 12.9 % (12.0-15.0); WHITE BLOOD COUNT 6.3 x10^3/uL (4.8-10.8)
[2018-02-02 08:50] LABS: ALBUMIN 4.3 g/dL (3.2-5.5); ALBUMIN/GLOBULIN RATIO 1.4 (1.0-2.2); BILIRUBIN,TOTAL 0.6 mg/dL (0.2-1.0); CALCIUM 9.1 mg/dL (8.5-10.3); TOTAL PROTEIN 7.3 g/dL (6.7-8.2)
[2018-02-02] MEDS ORDERED: IOPAMIDOL-300 100 ML VIAL ONE (09:22)
--- NOTE | 2018-02-02 09:58 | CT Report ---
Procedure Date: 02/02/2018 Accession Number: [id number] / [id number] Procedure: CT - Chest Angio (PE) CPT Code: FULL RESULT: EXAM: CT ANGIOGRAM CHEST EXAM DATE: 02/02/2018 09:27 AM. CLINICAL HISTORY: Chest pain. Tachycardia. Possible pulmonary embolism. COMPARISON: CTA chest 09/02/2017. TECHNIQUE: Thin section spiral CT angiography in the pulmonary arterial phase. IV Contrast: 80 cc [id number]. Reconstructions: Coronal 3-D MIP reconstructions and reformats. In accordance with CT protocol optimization, one or more of the following dose reduction techniques were utilized for this exam: automated exposure control, adjustment of mA and/or KV based on patient size, or use of iterative reconstructive technique. FINDINGS: Pulmonary Arteries: Diagnostic quality: Adequate through the segmental arteries. No evidence for acute or chronic pulmonary emboli. No acute right ventricular strain. Lungs/Pleura: Mild mosaic attenuation of left lower lobe. 3 small left lower lobe nodules 3-4 mm (60, 90, 101; series 5). A 3 mm peripheral right lower lobe nodule (79). No consolidation or vascular congestion. No central endobronchial obstructing lesion. No pleural effusion or pneumothorax. Mediastinum: No pathologic mediastinal or hilar adenopathy. Normal heart size. No pericardial effusion. Thoracic Aorta: No aneurysm. Not opacified given contrast bolus timing to the pulmonary arteries. Upper Abdomen: Suspected hepatic steatosis. No acute findings identified. Other: Prominent anterior paravertebral ossifications suggestive of DISH. Postop fusion by the cervicothoracic junction. IMPRESSION: 1. No evidence of pulmonary embolism. 2. No thoracic aortic aneurysm. 3. Mild mosaic attenuation of left lower lobe could reflect mild small airways disease. No consolidation. 3. Several sub-5 mm nodules in bilateral lower lobes. No routine follow-up necessary if low risk versus optional CT at 12 months if high risk per Fleischner Society guidelines. 4. No pathologic adenopathy. 5. Fatty liver. RADIA
[2018-02-02] MEDS ORDERED: MORPHINE 2 MG/ML SYRINGE IVP STA (10:16)
[2018-02-02] MEDS ORDERED: PROMETHAZINE INJ 12.5 MG in SODIUM CHLORIDE 0.9% 50 ML IV STA (10:16)
[2018-02-02] MEDS ORDERED: NITROGLYCERIN 2% PASTE TOP STA (10:17)
[2018-02-02] MEDS ORDERED: IOPAMIDOL-300 100 ML VIAL IVP ONE (11:49)
[2018-02-02] MEDS ORDERED: ACETAMINOPHEN 325 MG TABLET PO PRN (12:06)
[2018-02-02] MEDS ORDERED: PROCHLORPERAZINE 10 MG/2 ML VIAL IVP PRN (12:06)
[2018-02-02] MEDS ORDERED: ONDANSETRON 4 MG/2 ML VIAL IVP PRN (12:06)
[2018-02-02] MEDS ORDERED: ZOLPIDEM 5 MG TABLET PO PRN (12:06)
[2018-02-02] MEDS ORDERED: NITROGLYCERIN SL 0.4 MG TABLET SL PRN (12:11)
[2018-02-02] MEDS ORDERED: ALBUTEROL NEB 2.5 MG/3 ML INH PRN (12:18)
--- NOTE | 2018-02-02 12:19 | HISTORY & PHYSICAL EXAMINATION ---
Chief Complaint - Chief Complaint Chief Complaint: chest pain History of Present Illness - History of Present Illness HPI Comment/Other: is 47-yrs-old male with a PMH significance for HTN, HLD, hx of CAD, Angina, DM2, Depression/anxiety, ADD/ADHD, who present ER for complaints of chest pain. Pt report he started to have chest pain on morning around 5:30 with throbbing pain at anterior of left chest. The pain does not radiate to other locations. Pt denies nausea, vomiting, diaphoresis or other symptoms associated with chest pain. Pt report about 8 months he went to [facility] cardiac unit, he was found to have two small occlusion at his coronary artery. Because of the location, the poultry service technician can not put stent for him. Pt has been managed by [facility] , Statin, isosorbide and blood pressure control. Pt report he stopped to take Isosorbide because of headache. pt denies fever, chill, cough, shortness of breath, abdominal pain, nausea, vomiting, diarrhea. Pt's initially troponin test is negative, EKG reveals ST without acute st variety. Because our NM machine is out of order now, I discussed with pt, pt agree to have stress test as out-pt. History - Past Medical History Cardiovascular: reports: Hypertension, High cholesterol, Coronary artery disease , Angina Respiratory: reports: None Endocrine/Autoimmune: reports: Type 2 diabetes GI: reports: None : reports: None HEENT: reports: None Psych: reports: Depression, Anxiety, ADD/ADHD Musculoskeletal: reports: Chronic back pain Derm: reports: None MRSA Hx?: No - Past Surgical History Cardiovascular: reports: Cardiac catheterization - Family & Social History Family History: Mother: Alive and Well, Diabetes, Type 2, Hyperlipidemia, Hypertension, Father: Alive and Well, CAD Family History Comment/Other: pt state he is living [place]. 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 Living arrangement: At home Social History Notes: pt denies cigarette smoking, alcohol and drug abuse - Substance History Use: Uses substance without health or social issues: NONE - POLST Patient has POLST: No POLST Status: Full Code Meds/Allgy - Home Medications Home Medications: Ambulatory Orders Medication Instructions Recorded Confirmed Gabapentin 900 mg PO TID 09/02/17 02/02/18 metFORMIN [Glucophage] 500 mg PO BIDWM 09/02/17 02/02/18 Metoprolol Succinate 50 mg PO DAILY 01/04/18 02/02/18 cloNIDine [Catapres] 0.1 mg PO BID 01/04/18 02/02/18 Albuterol Sulf [Ventolin Hfa 1 - 2 puffs INH Q4HR PRN #1 inhaler 01/10/18 Inhaler] Oxycodone HCl/Acetaminophen 1 - 2 tab PO QID PRN 02/02/18 02/02/18 [Oxycodon-Acetaminophen 7.5-325] Sertraline HCl [Zoloft] 200 mg PO DAILY 02/02/18 02/02/18 - Allergies Allergies/Adverse Reactions: Allergies Allergy/AdvReac Type Severity Reaction Status Date / Time droperidol AdvReac Unknown Verified 01/10/18 12:52 Review of Systems - Constitutional Constitutional: denies: Fatigue, Fever, Chills, Malaise, Weakness, Poor appetite , Diaphoresis, Night sweats - Eyes Eyes: denies: Pain, Irritation, Amaurosis, Spots in vision, Field loss, Vision loss, Dipolpia - Ears, Nose & Throat Ears, Nose & Throat: denies: Ear pain, Hearing loss, Hearing aids, Vertigo, Nasal pain, Nasal discharge, Nosebleeds, Nasal obstruction, Nasal congestion, Postnasal drainage, Dentures, Sore throat, Hoarseness, Mouth lesions, Bleeding gums, Dental decay - Cardiovascular Cariovascular: reports: Chest pain. denies: Irregular heart rate, Palpitations , Edema, Lightheadedness, Syncope, Exertional dyspnea, Decr. exercise tolerance - Respiratory Respiratory: denies: Cough, Sputum production, Wheezing, Snoring, Hemoptysis, Orthopnea, SOB at rest, SOB with exertion - Gastrointestinal Gastrointestinal: denies: Abdominal pain, Abdominal distention, Constipation, Diarrhea, Change in bowel habits, Rectal bleeding, Black stools, Bloody stools, Nausea, Vomiting, Bile emesis, José Luis blood emesis, Coffee grounds emesis, Reflux /heartburn, Bloating - Genitourinary Genitourinary: denies: Dysuria, Frequency, Urgency, Hematuria, Incontinence, Flank pain, Nocturia, Urethral discharge - Musculoskeletal Musculoskeletal: denies: Muscle pain, Back pain, Muscle aches, Stiffness, Limited range of motion, Muscle weakness, Gout, Joint pain - Integumentary Integumentary: denies: Rash, Pruritis, Lesions, Dryness, Lumps, Acne, Pigment changes, Nail changes - Neurological Neurological: denies: General weakness, Focal weakness, Headache, Dizziness, Numbness, Memory problems, Pre-existing deficit, Abnormal gait, Seizures, Incoordination, Slurred speech - Psychiatric Psychiatric: denies: Depression, Anxiety, Suicidal, Delusions, Hallucinations, Homicidal - Endocrine Endocrine: denies: Polyuria, Polydypsia, Polyphagia, Intolerance to cold, Intolerance to heat - Hematologic/Lymphatic Hematologic/Lymphatic: denies: Anemia, Bruising, Petechiae, Blood clots, Lymphadenopathy, Bleeding tendencies, Recurrent infections Exam - Vital Signs Reviewed Vital Signs: Yes Vital Signs: Vital Signs x48h Temp Pulse Resp BP Pulse Ox 02/02/18 12:00 93 16 129/94 H 96 02/02/18 10:40 88 14 136/93 H 97 02/02/18 08:47 101 H 14 137/88 H 97 02/02/18 08:24 36.1 C L 106 H 16 188/96 H 99 - Physical Exam General Appearance: positive: No acute distress, Alert. negative: Lethargic Eyes Bilateral: positive: Normal inspection, PERRL, No lid inflammation, Conjunctivae nml ENT: positive: ENT inspection nml, Pharynx nml, No signs of dehydration. negative: Purulent nasal drainage, Pharyngeal erythema, Oral lesions Neck: positive: Nml inspection, Thyroid nml, No JVD, Trachea midline. negative : Thyromegaly, Lymphadenopathy (R), Lymphadenopathy (L), Stiff neck, Swelling/ bruising, Tracheal deviation Respiratory: positive: Chest non-tender, No respiratory distress, Breath sounds nml. negative: Wheezes, Rales, Rhonchi Cardiovascular: positive: Regular rate & rhythm, No murmur, No gallop. negative : Irregularly irregular, Extrasystoles, Tachycardia, Bradycardia, JVD present, Systolic murmur, Diastolic murmur Peripheral Pulses: positive: 2+ Abdomen: positive: Non-tender, No organomegaly, Nml bowel sounds, No distention. negative: Tenderness, Guarding, Rebound Back: positive: Nml inspection. negative: CVA tenderness (R), CVA tenderness (L ) Skin: positive: Color nml, No rash, Warm, Dry. negative: Cyanosis, Diaphoresis , Pallor, Skin rash Extremities: positive: Non-tender, Full ROM, Nml appearance. negative: Calf tenderness, Joint swelling, Delvis's sign/cords Neurologic/Psychiatric: positive: Oriented x3, Motor nml, Sensation nml, Mood/ affect nml. negative: Weakness, Sensory loss, Facial droop, Slurred/abnml speech, Depressed mood/affect Conclusion/Plan - Problem List (1) Chest pain Conclusion/Plan: pt report left chest pain. initially troponin and EKG are unremarkable. pt report pt has hx of small artery occlusion without stent because of the location unprocessed continue serial troponin EKG PRN Nitro/Morphin PRN ECHO follow up stress test, and follow up poultry service technician tele, vital monitor Qualifiers: Chest pain type: unspecified Qualified Code(s): R07.9 - Chest pain, unspecified (2) HTN (hypertension) Conclusion/Plan: stable, continue home meds metoprolol, clonidine vital monitor (3) DM2 (diabetes mellitus, type 2) Conclusion/Plan: A1C is 6.6, hold Metformin slide scale, hypoglycemia (4) Asthma Conclusion/Plan: stable, Albuteral PRN (5) Anxiety and depression Conclusion/Plan: stable, continue home meds Zoloft (6) DVT prophylaxis Conclusion/Plan: SCD and Lovenox (7) Full code status Conclusion/Plan: pt request full code - Lab Results Fish Bones: 02/03/18 04:50 02/03/18 04:50 Core Measures - Anticipated LOS I expect patient to be DC'd or transferred within 96 hours.: Yes - DVT/VTE - Prophylaxis VTE/DVT Device ordered at admit?: Yes VTE/DVT Prophylaxis med ordered at admit?: Yes
[2018-02-02] MEDS: MORPHINE 2 MG/ML SYRINGE IVP PRN ×3 (13:26→20:35)
[2018-02-02 14:12] LABS: HB2 TOTAL 16.5 g/dL; HEMOGLOBIN A1C 0.8 g/dL; HEMOGLOBIN A1C % 6.6 % (4.6-6.2)
[2018-02-02] MEDS: cloNIDine 0.1 MG TABLET PO SCH ×2 (14:38→21:12)
[2018-02-02] MEDS: SERTRALINE 50 MG TABLET PO SCH (14:38)
[2018-02-02] MEDS: METOPROLOL SUCCINATE 50 MG TABLET PO SCH (14:38)
[2018-02-02] MEDS: GABAPENTIN 300 MG CAPSULE PO SCH ×2 (14:38→21:12)
[2018-02-02] MEDS: SODIUM CHLORIDE FLUSH 0.9% 10 ML SYRINGE IVP SCH ×2 (15:46→23:44)
[2018-02-02] MEDS: INSULIN ASPART 300 UNIT/3 ML PEN SUBQ SCH ×2 (17:09→20:40)
[2018-02-02] MEDS: oxyCODONE 5 MG TABLET PO PRN ×2 (17:09→23:43)
[2018-02-02] MEDS: SODIUM CHLORIDE FLUSH 0.9% 10 ML SYRINGE IVP PRN (20:36)
[2018-02-03 05:18] LABS: BASOPHILS % (AUTO) 0.6 %; EOSINOPHILS # (AUTO) 0.3 10^3/uL (0.0-0.7); EOSINOPHILS % (AUTO) 4.5 %; HGB - HEMOGLOBIN 13.8 g/dL (14.0-18.0); LYMPHOCYTES # (AUTO) 1.4 10^3/uL (1.5-3.5); LYMPHOCYTES % (AUTO) 23.8 %; MEAN CORPUSCULAR HEMOGLOBIN 30.2 pg (27.0-31.0); MEAN CORPUSCULAR HGB CONC 32.7 g/dL (32.0-36.0); MEAN CORPUSCULAR VOLUME 92.3 fL (80.0-94.0); MEAN PLATELET VOLUME 7.8 fL (7.4-11.4); MONOCYTES # (AUTO) 0.5 10^3/uL (0.0-1.0); MONOCYTES % (AUTO) 8.8 %; NEUTROPHILS # (AUTO) 3.7 10^3/uL (1.5-6.6); NEUTROPHILS % (AUTO) 62.3 %; PLT - PLATELET COUNT 162 10^3/uL (130-450); RED BLOOD COUNT 4.56 10^6/uL (4.70-6.10); RED CELL DISTRIBUTION WIDTH 12.5 % (12.0-15.0)
[2018-02-03 05:29] LABS: ALBUMIN 3.8 g/dL (3.2-5.5); ALBUMIN/GLOBULIN RATIO 1.4 (1.0-2.2); BILIRUBIN,TOTAL 0.7 mg/dL (0.2-1.0); CALCIUM 8.8 mg/dL (8.5-10.3); CREATININE 1.1 mg/dL (0.6-1.2); MAGNESIUM 2.1 mg/dL (1.7-2.8); TOTAL PROTEIN 6.6 g/dL (6.7-8.2)
[2018-02-03] MEDS: GABAPENTIN 300 MG CAPSULE PO SCH (05:32)
[2018-02-03] MEDS: INSULIN ASPART 300 UNIT/3 ML PEN SUBQ SCH ×2 (07:49→11:21)
[2018-02-03] MEDS: cloNIDine 0.1 MG TABLET PO SCH (08:10)
[2018-02-03] MEDS: METOPROLOL SUCCINATE 50 MG TABLET PO SCH (08:11)
[2018-02-03] MEDS: SERTRALINE 50 MG TABLET PO SCH (08:11)
[2018-02-03] MEDS: MORPHINE 2 MG/ML SYRINGE IVP PRN (08:14)
[2018-02-03] MEDS: SODIUM CHLORIDE FLUSH 0.9% 10 ML SYRINGE IVP SCH (08:15)
[2018-02-03] MEDS: SODIUM CHLORIDE FLUSH 0.9% 10 ML SYRINGE IVP PRN (08:15)
[2018-02-03] MEDS ORDERED: FAMOTIDINE 20 MG TABLET PO SCH (09:00)
[2018-02-03] MEDS ORDERED: ASPIRIN CHEW 81 MG TABLET PO SCH (09:00)
[2018-02-03] MEDS ORDERED: ENOXAPARIN 40 MG/0.4 ML SYRINGE SUBQ SCH (09:00)
[2018-02-03] MEDS ORDERED: POLYETHYLENE GLYCOL 3350 17 GM PACKET PO SCH (09:00)
--- NOTE | 2018-02-03 11:18 | Discharge Plan ---
Discharge Plan Disposition: Home, Self Care Condition: Poor Prescriptions: Nitroglycerin [Nitrostat] 0.4 mg SL Q5MIN PRN #30 tablet PRN Reason: Chest Pain Aspirin Chewable [St Oneil Aspirin] 81 mg PO DAILY #15 tablet Morphine ER 15 mg PO Q12H PRN #10 tablet PRN Reason: Chest Pain Diet: Diabetic Activity Restrictions: Activity as Tolerated Shower Restrictions: No (fall precaution) Instruction Topics: Morphine sustained-release tablets, Nitroglycerin Fast Acting Additional Instructions or Follow Up instructions: You may follow up your PCP in 2-3 days, follow up cardiac stress test as out- pt. Should your symptoms return or worsen, you may present ER or call 911 for help. 5mm size nodules in your bilateral lower lobes of your lung were seen on your chest CT - the radiologist does not think they look concerning for cancer but suggests you get another CT in about a year to be sure they are not changing or growing No Smoking: If you smoke, Please STOP! Call for help. Follow-up with: Colin Gonsalez MD [Primary Care Provider] -
--- NOTE | 2018-02-03 11:31 | DISCHARGE SUMMARY ---
Discharge Summary Discharge Date: 02/03/18 Discharging Provider: MORRIS Primary Care Provider: DR. Gonsalez Condition at Discharge: Poor Discharge Disposition: Home, Self Care Discharge Facility Name: home - DIAGNOSES Admission Diagnoses: (1) Chest pain (2) HTN (hypertension) (3) DM2 (diabetes mellitus, type 2) (4) Asthma (5) Anxiety and depression Discharge Diagnoses with Status of Each Condition: (1) Chest pain resolved. ECHO reveals unremarkable. Three troponin negative, EKG without acute change. pt is advised to have stress test as out-pt, since our MN is out order. pt agree to do that. (2) HTN (hypertension) stable (3) DM2 (diabetes mellitus, type 2) stable (4) Asthma stable (5) Anxiety and depression stable - HPI History of Present Illness: is 47-yrs-old male with a PMH significance for HTN, HLD, hx of CAD, Angina, DM2, Depression/anxiety, ADD/ADHD, who present ER for complaints of chest pain. Pt report he started to have chest pain on morning around 5:30 with throbbing pain at anterior of left chest. The pain does not radiate to other locations. Pt denies nausea, vomiting, diaphoresis or other symptoms associated with chest pain. Pt report about 8 months he went to [facility] cardiac unit, he was found to have two small occlusion at his coronary artery. Because of the location, the relationship advisor can not put stent for him. Pt has been managed by [facility] , Statin, isosorbide and blood pressure control. Pt report he stopped to take Isosorbide because of headache. pt denies fever, chill, cough, shortness of breath, abdominal pain, nausea, vomiting, diarrhea. Pt's initially troponin test is negative, EKG reveals ST without acute st variety. Because our NM machine is out of order now, I discussed with pt, pt agree to have stress test as out-pt. - ALLERGIES Allergies/Adverse Reactions: Allergies Allergy/AdvReac Type Severity Reaction Status Date / Time droperidol AdvReac Unknown Verified 01/10/18 12:52 - MEDICATIONS Home Medications: Ambulatory Orders Medication Instructions Recorded Confirmed Gabapentin 900 mg PO TID 09/02/17 02/02/18 metFORMIN [Glucophage] 500 mg PO BIDWM 09/02/17 02/02/18 Metoprolol Succinate 50 mg PO DAILY 01/04/18 02/02/18 cloNIDine [Catapres] 0.1 mg PO BID 01/04/18 02/02/18 Albuterol Sulf [Ventolin Hfa 1 - 2 puffs INH Q4HR PRN #1 inhaler 01/10/18 Inhaler] Sertraline HCl [Zoloft] 200 mg PO DAILY 02/02/18 02/02/18 Aspirin Chewable [St Oneil 81 mg PO DAILY #15 tablet 02/03/18 Aspirin] Morphine ER 15 mg PO Q12H PRN #10 tablet 02/03/18 Nitroglycerin [Nitrostat] 0.4 mg SL Q5MIN PRN #30 tablet 02/03/18 - PHYSICAL EXAM AT DISCHARGE General Appearance: positive: No acute distress, Alert. negative: Lethargic Eyes Bilateral: positive: Normal inspection, PERRL, No lid inflammation, Conjunctivae nml ENT: positive: ENT inspection nml, Pharynx nml, No signs of dehydration. negative: Purulent nasal drainage, Pharyngeal erythema, Oral lesions Neck: positive: Nml inspection, Thyroid nml, No JVD, Trachea midline. negative : Thyromegaly, Lymphadenopathy (R), Lymphadenopathy (L), Stiff neck, Carotid bruit, Swelling/bruising, Tracheal deviation Respiratory: positive: Chest non-tender, No respiratory distress, Breath sounds nml. negative: Wheezes, Rales, Rhonchi Cardiovascular: positive: Regular rate & rhythm, No murmur, No gallop. negative : Irregularly irregular, Extrasystoles, Tachycardia, Bradycardia, JVD present, Systolic murmur, Diastolic murmur Peripheral Pulses: positive: 2+ Abdomen: positive: Non-tender, No organomegaly, Nml bowel sounds, No distention. negative: Tenderness, Guarding, Rebound Back: positive: Nml inspection. negative: CVA tenderness (R), CVA tenderness (L ) Skin: positive: Color nml, No rash, Warm, Dry. negative: Cyanosis, Diaphoresis , Pallor, Skin rash Extremities: positive: Non-tender, Full ROM, Nml appearance. negative: Calf tenderness, Joint swelling, Delvis's sign/cords Neurologic/Psychiatric: positive: Oriented x3, Motor nml, Sensation nml, Mood/ affect nml. negative: Weakness, Sensory loss, Facial droop, Slurred/abnml speech, Depressed mood/affect - LABS Result Diagrams: 02/03/18 04:50 02/03/18 04:50 - FOLLOW UP Follow Up: You may follow up your PCP in 2-3 days, follow up cardiac stress test as out- pt. Should your symptoms return or worsen, you may present ER or call 911 for help. 5mm size nodules in your bilateral lower lobes of your lung were seen on your chest CT - the radiologist does not think they look concerning for cancer but suggests you get another CT in about a year to be sure they are not changing or growing - TIME SPENT Time Spent in Discharge (Minutes): 50
[2018-02-03 12:00] VITALS: BP 139/90
== END 2018-02-03 12:04 | disposition home or self-care (01) ==
LOC: ED 08:06 → MS2 12:06
PROVIDERS: ADMIT Nurse Practitioner Gerontology; ATTEND Nurse Practitioner Gerontology
DX: R07.89 Other chest pain (principal); I10 Essential (primary) hypertension; E11.9 Type 2 diabetes mellitus without complications; J45.909 Unspecified asthma, uncomplicated; F90.9 Attention-deficit hyperactivity disorder, unspecified type; F41.9 Anxiety disorder, unspecified; F32.9 Major depressive disorder, single episode, unspecified; E78.5 Hyperlipidemia, unspecified; I24.0 Acute coronary thrombosis not resulting in myocardial infarction; Z79.84 Long term (current) use of oral hypoglycemic drugs; Z79.82 Long term (current) use of aspirin; Z79.899 Other long term (current) drug therapy; R91.8 Other nonspecific abnormal finding of lung field
CPT/HCPCS: 36415; 71275; 80053; 83036; 83690; 83735; 84484; 85025; 93005; 93306; 96361; 96365; 96372; 96375; 96376; 99217; 99218; 99284; A9270; J1650; J2270; J7040; Q9967

== ENCOUNTER 2018-02-22 23:24 | Emergency (ER) | payer MEDICAID ==
[2018-02-22] MEDS ORDERED: ASPIRIN CHEW 81 MG TABLET PO STA (23:43)
[2018-02-22 23:51] LABS: BASOPHILS # (AUTO) 0.1 10^3/uL (0.0-0.1); BASOPHILS % (AUTO) 0.7 %; EOSINOPHILS # (AUTO) 0.2 10^3/uL (0.0-0.7); EOSINOPHILS % (AUTO) 2.5 %; HGB - HEMOGLOBIN 14.7 g/dL (14.0-18.0); LYMPHOCYTES # (AUTO) 1.7 10^3/uL (1.5-3.5); LYMPHOCYTES % (AUTO) 20.7 %; MEAN CORPUSCULAR HEMOGLOBIN 30.2 pg (27.0-31.0); MEAN CORPUSCULAR HGB CONC 33.8 g/dL (32.0-36.0); MEAN CORPUSCULAR VOLUME 89.3 fL (80.0-94.0); MEAN PLATELET VOLUME 8.5 fL (7.4-11.4); MONOCYTES # (AUTO) 0.6 10^3/uL (0.0-1.0); MONOCYTES % (AUTO) 7.2 %; NEUTROPHILS # (AUTO) 5.7 10^3/uL (1.5-6.6); NEUTROPHILS % (AUTO) 68.9 %; PLT - PLATELET COUNT 191 10^3/uL (130-450); RED BLOOD COUNT 4.87 10^6/uL (4.70-6.10); RED CELL DISTRIBUTION WIDTH 12.7 % (12.0-15.0); WHITE BLOOD COUNT 8.2 x10^3/uL (4.8-10.8)
[2018-02-22 23:58] LABS: PT - PROTHROMBIN TIME 11.2 secs (9.9-12.6)
[2018-02-23 00:01] LABS: ALBUMIN 4.1 g/dL (3.2-5.5); ALBUMIN/GLOBULIN RATIO 1.3 (1.0-2.2); BILIRUBIN,TOTAL 0.6 mg/dL (0.2-1.0); CALCIUM 9.5 mg/dL (8.5-10.3); CREATININE 1.1 mg/dL (0.6-1.2); TOTAL PROTEIN 7.3 g/dL (6.7-8.2)
--- NOTE | 2018-02-23 00:14 | XRAY Report ---
Procedure Date: 02/22/2018 Accession Number: [id number] / [id number] Procedure: XR - Chest 1 View X-Ray CPT Code: 16002 FULL RESULT: EXAM: CHEST RADIOGRAPHY EXAM DATE: 02/22/2018 11:55 PM. CLINICAL HISTORY: Chest pain. COMPARISON: CHEST 1 VIEW 09/24/2017. TECHNIQUE: 1 view. FINDINGS: Lungs/Pleura: No alveolar consolidation or pleural effusion seen. No pneumothorax. Mediastinum: Within exam limitations, the cardiomediastinal contour is normal. Other: Postoperative changes in the cervicothoracic spine. IMPRESSION: 1. No acute abnormality seen in the chest. RADIA
[2018-02-23] MEDS ORDERED: IPRATROPIUM/ALBUTEROL 3 ML NEB INH ONE (00:15)
--- NOTE | 2018-02-23 00:15 | ED Physician Documentation ---
PD HPI CHEST PAIN - Stated complaint Stated Complaint: CHEST PAIN,SOA - Chief complaint Chief Complaint: Cardiac - History obtained from History obtained from: Patient - History of Present Illness Timing - onset: How many hours ago (3) Timing - details: Gradual onset, Still present Quality: Pressure Location: Substernal, Left chest Improved by: Nothing Associated symptoms: No: Shortness of air, Diaphoresis, Nausea, Vomiting, Feeling faint / dizzy Similar symptoms before: Work up / diagnostics, Treatment - Additional information Additional information: Patient is a 47 year old male presenting to the emergency department for chest pain. Patient states that the pain started this evening after eating while he was at rest. Patient states that he took his nitro but his pain did not change. Patient also reports shortness of breath but states that he ran out of his inhaler. Patient does have a history of coronary artery disease. patient had a cardiac cath that did show some distal occlusion but it is unstentable. Patient has had almost thirty ER visits this year for back pain and chest pain, and patient recently had his pain medication prescription reduced. Review of Systems Ten Systems: 10 systems reviewed and negative Constitutional: denies: Fever, Chills Cardiac: reports: Chest pain / pressure Respiratory: reports: Dyspnea, Cough. denies: Wheezing GI: denies: Nausea, Vomiting : reports: Reviewed and negative PD PAST MEDICAL HISTORY - Past Medical History Past Medical History: Yes Cardiovascular: Hypertension, High cholesterol, Coronary artery disease, Angina Respiratory: None Endocrine/Autoimmune: Type 2 diabetes GI: None : None HEENT: None Psych: Depression, Anxiety, ADD/ADHD Musculoskeletal: Chronic back pain Derm: None - Past Surgical History Past Surgical History: Yes Cardiovascular: Cardiac catheterization - Present Medications Home Medications: Ambulatory Orders Medication Instructions Recorded Confirmed Gabapentin 900 mg PO TID 09/02/17 02/22/18 metFORMIN [Glucophage] 500 mg PO BIDWM 09/02/17 02/22/18 Metoprolol Succinate 50 mg PO DAILY 01/04/18 02/22/18 cloNIDine [Catapres] 0.1 mg PO BID 01/04/18 02/22/18 Albuterol Sulf [Ventolin Hfa 1 - 2 puffs INH Q4HR PRN #1 inhaler 01/10/18 Inhaler] Sertraline HCl [Zoloft] 200 mg PO DAILY 02/02/18 02/22/18 Aspirin Chewable [St Oneil 81 mg PO DAILY #15 tablet 02/03/18 02/22/18 Aspirin] Morphine ER 15 mg PO Q12H PRN #10 tablet 02/03/18 02/22/18 Nitroglycerin [Nitrostat] 0.4 mg SL Q5MIN PRN #30 tablet 02/03/18 02/22/18 - Allergies Allergies/Adverse Reactions: Allergies Allergy/AdvReac Type Severity Reaction Status Date / Time droperidol AdvReac Unknown Verified 02/22/18 23:50 - Social History Does the pt smoke?: No Smoking Status: Never smoker Does the pt drink ETOH?: No Does the pt have substance abuse?: No - Immunizations Immunizations are current?: Yes - POLST Patient has POLST: No POLST Status: Full Code PD ED PE NORMAL - Vitals Vital signs reviewed: Yes - General General: Alert and oriented X 3, No acute distress, Well developed/nourished - HEENT HEENT: Atraumatic, Moist mucous membranes - Neck Neck: No JVD - Cardiac Cardiac: RRR, No murmur - Respiratory Respiratory: No respiratory distress, Clear bilaterally - Abdomen Abdomen: Soft, Non tender - Derm Derm: Normal color, Warm and dry, No rash - Extremities Extremities: No deformity, No edema, No calf tenderness / cord - Neuro Neuro: Alert and oriented X 3, No motor deficit, Normal speech Results - Vitals Vitals: Vital Signs - 24 hr 02/22/18 02/23/18 02/23/18 23:25 00:15 01:15 Temperature 36.5 C Heart Rate 77 74 73 Respiratory 18 18 16 Rate Blood Pressure 139/83 H 115/72 113/73 O2 Saturation 96 98 95 Oxygen O2 Source Room air - EKG (time done) 2335 Rate: Rate (enter#) (71) Rhythm: NSR [place]: Normal Intervals: Normal MD QRS: Normal Ischemia: Normal ST segments Compare to prior EKG: Changed from prior EKG - Labs Labs: Laboratory Tests 02/22/18 02/22/18 02/22/18 23:35 23:35 23:35 WBC 8.2 RBC 4.87 Hgb 14.7 Hct 43.4 MCV 89.3 MCH 30.2 MCHC 33.8 RDW 12.7 Plt Count 191 MPV 8.5 Neut # (Auto) 5.7 Lymph # (Auto) 1.7 [place] # (Auto) 0.6 Eos # (Auto) 0.2 Baso # (Auto) 0.1 Absolute Nucleated RBC 0.00 Nucleated RBC % 0.0 PT 11.2 INR 1.0 APTT 26.1 D-Dimer < 200.0 L Sodium 139 Potassium 3.6 Chloride 102 Carbon Dioxide 27 Anion Gap 10.0 BUN 17 Creatinine 1.1 Estimated GFR (MDRD) 71 L Glucose 336 H Calcium 9.5 Total Bilirubin 0.6 AST 31 ALT 26 Alkaline Phosphatase 56 Troponin I B-Natriuretic Peptide Total Protein 7.3 Albumin 4.1 Globulin 3.2 Albumin/Globulin Ratio 1.3 Lipase 45 02/22/18 02/22/18 02/23/18 23:35 23:35 01:24 WBC RBC Hgb Hct MCV MCH MCHC RDW Plt Count MPV Neut # (Auto) Lymph # (Auto) [place] # (Auto) Eos # (Auto) Baso # (Auto) Absolute Nucleated RBC Nucleated RBC % PT INR APTT D-Dimer Sodium Potassium Chloride Carbon Dioxide Anion Gap BUN Creatinine Estimated GFR (MDRD) Glucose Calcium Total Bilirubin AST ALT Alkaline Phosphatase Troponin I < 0.04 < 0.04 B-Natriuretic Peptide 24 Total Protein Albumin Globulin Albumin/Globulin Ratio Lipase - Rads (name of study) chest x-ray Radiology: Final report received (normal) PD MEDICAL DECISION MAKING - ED course Complexity details: reviewed old records, reviewed results, re-evaluated patient , considered differential, d/w patient ED course: Patient was seen and examined at bedside. patient was in no acute distress. ekg was performed and showed normal sinus with no acute ischemic changes. patient was treated with aspirin. Patient's labs were drawn. chest x-ray was performed and was within normal limits. Patient's previous results were reviewed. the last note by the lawn service supervisor stated that the pain was unlikely cardiac in nature. Patient's initial diagnostics including ekg, troponin, d-dimer, bnp were all within normal limits. repeat ekg and troponin were ordered. No narcotics were given and patient stated that he wanted to go home. patient signed out ama. - Sepsis Event Vital Signs: Vital Signs - 24 hr 02/22/18 02/23/18 02/23/18 23:25 00:15 01:15 Temperature 36.5 C Heart Rate 77 74 73 Respiratory 18 18 16 Rate Blood Pressure 139/83 H 115/72 113/73 O2 Saturation 96 98 95 Oxygen O2 Source Room air Departure - Departure Disposition: 07 Against Medical Advice Clinical Impression: Atypical chest pain Condition: Stable
[2018-02-23 00:27] LABS: D-DIMER < 200.0 ng/mL (200.0-255.0)
[2018-02-23 01:25] VITALS: BP 113/73
== END 2018-02-23 01:39 | disposition left against medical advice (07) ==
LOC: ED 23:24
DX: R07.89 Other chest pain (principal); I10 Essential (primary) hypertension; I25.10 Atherosclerotic heart disease of native coronary artery without angina pectoris; E78.00 Pure hypercholesterolemia, unspecified; E11.9 Type 2 diabetes mellitus without complications; Z79.84 Long term (current) use of oral hypoglycemic drugs
CPT/HCPCS: 36415; 71045; 80053; 83690; 83880; 84484; 85025; 85379; 85610; 85730; 93005; 99283; 99284; A9270

== ENCOUNTER 2018-03-05 18:45 | Emergency (ER) | payer MEDICAID ==
--- NOTE | 2018-03-05 19:39 | ED Physician Documentation ---
PD HPI LOWER EXT INJURY - History obtained from History obtained from: Patient - History of Present Illness PD HPI LOW EXT INJURY LOCATION: Right, Left, Thigh Type of injury: No: Fall, Twist Timing - onset: How many days ago (3-4) Timing - duration: Days (3-4) Timing - details: Gradual onset, Still present, Waxing and waning Improved by: No: Rest Worsened by: Moving, Palpating Associated symptoms: No: Weakness, Numbness, Swelling Contributing factors: Anticoagulated. No: Prior ortho surgery Similar symptoms before: Has not had sx before - Stated complaint Stated Complaint: HIP/LEG/KNEE PX - Chief complaint Chief Complaint: Ext Problem Review of Systems Constitutional: reports: Myalgias, Fatigue. denies: Fever, Chills Nose: denies: Rhinorrhea / runny nose, Congestion Throat: denies: Sore throat Cardiac: reports: Chest pain / pressure (recurrently). denies: Palpitations Respiratory: denies: Dyspnea Musculoskeletal: denies: Extremity swelling PD PAST MEDICAL HISTORY - Past Medical History Past Medical History: Yes Cardiovascular: Hypertension, High cholesterol, Coronary artery disease, Angina Respiratory: None Neuro: None Endocrine/Autoimmune: Type 2 diabetes GI: None : None HEENT: None Psych: Depression, Anxiety, ADD/ADHD Musculoskeletal: Chronic back pain Derm: None - Past Surgical History Past Surgical History: Yes Cardiovascular: Cardiac catheterization - Social History Does the pt smoke?: No Smoking Status: Never smoker Does the pt drink ETOH?: No Does the pt have substance abuse?: No - Immunizations Immunizations are current?: Yes - POLST Patient has POLST: No POLST Status: Full Code - Present Medications Home Medications: Ambulatory Orders Medication Instructions Recorded Confirmed Gabapentin 900 mg PO TID 09/02/17 02/22/18 metFORMIN [Glucophage] 500 mg PO BIDWM 09/02/17 02/22/18 Metoprolol Succinate 50 mg PO DAILY 01/04/18 02/22/18 cloNIDine [Catapres] 0.1 mg PO BID 01/04/18 02/22/18 Albuterol Sulf [Ventolin Hfa 1 - 2 puffs INH Q4HR PRN #1 inhaler 01/10/18 Inhaler] Sertraline HCl [Zoloft] 200 mg PO DAILY 02/02/18 02/22/18 Aspirin Chewable [St Oneil 81 mg PO DAILY #15 tablet 02/03/18 02/22/18 Aspirin] Morphine ER 15 mg PO Q12H PRN #10 tablet 02/03/18 02/22/18 Nitroglycerin [Nitrostat] 0.4 mg SL Q5MIN PRN #30 tablet 02/03/18 02/22/18 Methocarbamol [Robaxin] 500 mg PO Q6H PRN #20 tablet 03/05/18 Oxycodone HCl/Acetaminophen 1 each PO Q6H PRN #15 tablet 03/05/18 [Percocet 5-325 mg Tablet] - Allergies Allergies/Adverse Reactions: Allergies Allergy/AdvReac Type Severity Reaction Status Date / Time droperidol AdvReac Unknown Verified 03/05/18 18:51 PD ED PE NORMAL - Vitals Vital signs reviewed: Yes - General General: Alert and oriented X 3, No acute distress, Well developed/nourished - HEENT HEENT: Pharynx benign - Neck Neck: Supple, no meningeal sign, No adenopathy - Cardiac Cardiac: RRR, No murmur - Respiratory Respiratory: Clear bilaterally - Abdomen Abdomen: Normal bowel sounds, Soft, Non tender, Non distended - Derm Derm: Normal color, Warm and dry, No rash - Extremities Extremities: No tenderness to palpate - Neuro Neuro: Alert and oriented X 3, No motor deficit, No sensory deficit (he has good sensation to touch and pinprick in legs. Has good reflexes at knees. ), Normal speech - Vitals Vitals: Oxygen O2 Source Room air - Labs Labs: Laboratory Tests 03/05/18 03/05/18 03/05/18 20:17 20:17 20:17 WBC 10.0 RBC 5.08 Hgb 15.6 Hct 44.8 MCV 88.1 MCH 30.7 MCHC 34.9 RDW 13.1 Plt Count 207 MPV 7.8 Neut # (Auto) 7.3 H Lymph # (Auto) 1.8 [place] # (Auto) 0.7 Eos # (Auto) 0.1 Baso # (Auto) 0.1 Absolute Nucleated RBC 0.01 Nucleated RBC % 0.1 ESR 2 Sodium 135 Potassium 3.6 Chloride 98 L Carbon Dioxide 27 Anion Gap 10.0 BUN 19 Creatinine 1.1 Estimated GFR (MDRD) 71 L Glucose 135 H Calcium 9.4 Phosphorus 3.0 Magnesium 2.1 Total Bilirubin 0.9 AST 27 ALT 24 Alkaline Phosphatase 54 Total Creatine Kinase 154 Total Protein 7.4 Albumin 4.3 Globulin 3.1 Albumin/Globulin Ratio 1.4 Lipase 43 PD MEDICAL DECISION MAKING - ED course Complexity details: reviewed old records (has had pain complaints in the past. ) , reviewed results, considered differential (consider myalgias, myositis. Does not sound like radiculitis, as actually tender to touch lateral thighs. He says he has not been taking statin for couple of months. No recent viral illness. ), d/w patient - ED course ED course: Call from pharmacist with concerns about excessive recent narcotic prescriptions. After review of the patients recent narcotic usage the script is denied. (Heriberto Crawford) - Sepsis Event Vital Signs: Oxygen O2 Source Room air Departure - Departure Record reviewed to determine appropriate education?: Yes - Departure Disposition: Home, Self Care Clinical Impression: Hip pain, bilateral, Leg weakness, bilateral Condition: Stable Instructions: ED Muscle Pain Leg Cramps Follow-Up: Colin Gonsalez MD [Primary Care Provider] - Prescriptions: Methocarbamol [Robaxin] 500 mg PO Q6H PRN #20 tablet PRN Reason: Spasms Oxycodone HCl/Acetaminophen [Percocet 5-325 mg Tablet] 1 each PO Q6H PRN #15 tablet PRN Reason: Pain Comments: Continue usual medications. Add Robaxin muscle relaxant if needed for stiffness and spasming and cramps. Add Percocet if needed for pain. I think this is more muscle related though it could certainly be coming from some back origin with some nerve irritation. Follow-up with your primary care next week, call for an appointment. They may want to do some physical therapy or such. Discharge Date/Time: 03/05/18 21:40
[2018-03-05] MEDS ORDERED: oxyCODONE 5 MG TABLET PO STA (20:07)
[2018-03-05] MEDS ORDERED: METHOCARBAMOL 500 MG TABLET PO STA (20:07)
[2018-03-05 20:26] LABS: BASOPHILS # (AUTO) 0.1 10^3/uL (0.0-0.1); BASOPHILS % (AUTO) 0.7 %; EOSINOPHILS # (AUTO) 0.1 10^3/uL (0.0-0.7); EOSINOPHILS % (AUTO) 1.3 %; HGB - HEMOGLOBIN 15.6 g/dL (14.0-18.0); LYMPHOCYTES # (AUTO) 1.8 10^3/uL (1.5-3.5); LYMPHOCYTES % (AUTO) 17.9 %; MEAN CORPUSCULAR HEMOGLOBIN 30.7 pg (27.0-31.0); MEAN CORPUSCULAR HGB CONC 34.9 g/dL (32.0-36.0); MEAN CORPUSCULAR VOLUME 88.1 fL (80.0-94.0); MEAN PLATELET VOLUME 7.8 fL (7.4-11.4); MONOCYTES # (AUTO) 0.7 10^3/uL (0.0-1.0); NEUTROPHILS # (AUTO) 7.3 10^3/uL (1.5-6.6); NEUTROPHILS % (AUTO) 73.1 %; PLT - PLATELET COUNT 207 10^3/uL (130-450); RED BLOOD COUNT 5.08 10^6/uL (4.70-6.10); RED CELL DISTRIBUTION WIDTH 13.1 % (12.0-15.0)
[2018-03-05 20:38] LABS: ALBUMIN 4.3 g/dL (3.2-5.5); ALBUMIN/GLOBULIN RATIO 1.4 (1.0-2.2); BILIRUBIN,TOTAL 0.9 mg/dL (0.2-1.0); CALCIUM 9.4 mg/dL (8.5-10.3); CREATININE 1.1 mg/dL (0.6-1.2); MAGNESIUM 2.1 mg/dL (1.7-2.8); TOTAL PROTEIN 7.4 g/dL (6.7-8.2)
[2018-03-05 21:09] VITALS: BP 141/99
[2018-03-05] MEDS ORDERED: oxyCODONE/ACET 5/325 Prepack 4 PO STA (21:37)
== END 2018-03-05 21:40 | disposition home or self-care (01) ==
LOC: ED 18:45
DX: M25.552 Pain in left hip (principal); M25.551 Pain in right hip; R53.1 Weakness; I10 Essential (primary) hypertension; I25.10 Atherosclerotic heart disease of native coronary artery without angina pectoris; E11.9 Type 2 diabetes mellitus without complications; Z79.84 Long term (current) use of oral hypoglycemic drugs; E78.00 Pure hypercholesterolemia, unspecified
CPT/HCPCS: 80053; 82550; 83690; 83735; 84100; 85025; 85651; 99283; A9270; 36415

== ENCOUNTER 2018-05-08 12:07 | Emergency (ER) | payer BC, MEDICAID ==
[2018-05-08 12:16] VITALS: BP 150/97
--- NOTE | 2018-05-08 12:22 | ED Physician Documentation ---
PD HPI LOWER EXT INJURY - Stated complaint Stated Complaint: HIPS/LEGS PX - Chief complaint Chief Complaint: Ext Problem - History obtained from History obtained from: Patient - History of Present Illness PD HPI LOW EXT INJURY LOCATION: Left, Hip Type of injury: No: Fall, Twist Timing - onset: How many days ago (4) Timing - duration: Days (4) Timing - details: Gradual onset, Still present (He noted onset of pain in the lateral hip 4 days ago without any obvious injury. He states it is continued and worsened over the last few days.) Worsened by: Moving, Palpating Associated symptoms: No: Weakness, Numbness, Tingling Similar symptoms before: Has not had sx before (He has a history of recurring low back pain with sciatic but has not had pain at the lateral hip like this in the past.) PD PAST MEDICAL HISTORY - Past Medical History Past Medical History: Yes Cardiovascular: Hypertension, High cholesterol, Coronary artery disease, Angina Respiratory: None Neuro: None Endocrine/Autoimmune: Type 2 diabetes GI: None : None HEENT: None Psych: Depression, Anxiety, ADD/ADHD Musculoskeletal: Chronic back pain Derm: None - Past Surgical History Past Surgical History: Yes Cardiovascular: Cardiac catheterization - Present Medications Home Medications: Ambulatory Orders Medication Instructions Recorded Confirmed Gabapentin 900 mg PO TID 09/02/17 02/22/18 metFORMIN [Glucophage] 500 mg PO BIDWM 09/02/17 02/22/18 Metoprolol Succinate 50 mg PO DAILY 01/04/18 02/22/18 cloNIDine [Catapres] 0.1 mg PO BID 01/04/18 02/22/18 Albuterol Sulf [Ventolin Hfa 1 - 2 puffs INH Q4HR PRN #1 inhaler 01/10/18 02/22/18 Inhaler] Sertraline HCl [Zoloft] 200 mg PO DAILY 02/02/18 02/22/18 Aspirin Chewable [St Oneil 81 mg PO DAILY #15 tablet 02/03/18 02/22/18 Aspirin] Nitroglycerin [Nitrostat] 0.4 mg SL Q5MIN PRN #30 tablet 02/03/18 02/22/18 Dexamethasone [Decadron] 4 mg PO DAILY #5 tablet 05/08/18 Methocarbamol [Robaxin] 500 mg PO TID PRN #20 tablet 05/08/18 Naproxen [Naprosyn] 500 mg PO BID PRN #20 tablet 05/08/18 Oxycodone HCl/Acetaminophen 1 each PO Q6H PRN #20 tablet 05/08/18 [Percocet 5-325 mg Tablet] - Allergies Allergies/Adverse Reactions: Allergies Allergy/AdvReac Type Severity Reaction Status Date / Time droperidol AdvReac Unknown Verified 03/05/18 18:51 - Social History Does the pt smoke?: No Smoking Status: Never smoker Does the pt drink ETOH?: No Does the pt have substance abuse?: No - Immunizations Immunizations are current?: Yes - POLST Patient has POLST: No POLST Status: Full Code PD ED PE NORMAL - Vitals Vital signs reviewed: Yes - General General: Alert and oriented X 3, No acute distress, Well developed/nourished - Abdomen Abdomen: Soft, Non tender - Back Back: No CVA TTP - Derm Derm: Normal color, Warm and dry - Extremities Extremities: Other (Tender laterally at lateral trochanter. No rash nor sores. Pain with abduction of leg. ) - Neuro Neuro: Alert and oriented X 3, No motor deficit, No sensory deficit Results - Vitals Vitals: Vital Signs - 24 hr 05/08/18 12:14 Temperature 36.5 C Heart Rate 93 Respiratory 18 Rate Blood Pressure 150/97 H O2 Saturation 100 Oxygen O2 Source Room air PD MEDICAL DECISION MAKING - ED course Complexity details: considered differential (His location of pain and tenderness along with the symptoms are suggestive of trochanteric bursitis or tendinitis. There is no abrupt injury or fall so imaging is not indicated.), d/w patient Departure - Departure Disposition: 01 Home, Self Care Clinical Impression: Trochanteric tendinitis of left hip Condition: Stable Record reviewed to determine appropriate education?: Yes Follow-Up: Mt Mitchell MD [Primary Care Provider] - Prescriptions: Dexamethasone [Decadron] 4 mg PO DAILY #5 tablet Methocarbamol [Robaxin] 500 mg PO TID PRN #20 tablet PRN Reason: Spasms Naproxen [Naprosyn] 500 mg PO BID PRN #20 tablet PRN Reason: Pain Oxycodone HCl/Acetaminophen [Percocet 5-325 mg Tablet] 1 each PO Q6H PRN #20 tablet PRN Reason: Pain Comments: You can put ice or cool towels to the area that sore periodically. This seems like an inflammation of the tendon and muscle attachment on the side of the hip. It typically will improve with anti-inflammatories over several days to week. Add pain medicine and muscle relaxant as needed for spasms and pain. Recheck if not improving over the next several days to week. Discharge Date/Time: 05/08/18 12:39
[2018-05-08] MEDS ORDERED: NAPROXEN 250 MG TABLET PO STA (12:33)
[2018-05-08] MEDS ORDERED: DEXAMETHASONE 10 MG/ML VIAL PO STA (12:33)
== END 2018-05-08 12:39 | disposition home or self-care (01) ==
LOC: ED 12:07
DX: M70.62 Trochanteric bursitis, left hip (principal); I10 Essential (primary) hypertension; E11.9 Type 2 diabetes mellitus without complications; Z79.84 Long term (current) use of oral hypoglycemic drugs; Z79.82 Long term (current) use of aspirin
CPT/HCPCS: 99283; A9270

== ENCOUNTER 2018-06-05 19:02 | Emergency (ER) | payer BC, MEDICAID ==
[2018-06-05 19:21] VITALS: BP 193/98
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
== END 2018-06-05 19:55 | disposition left against medical advice (07) ==
LOC: ED 19:02
DX: S39.012A Strain of muscle, fascia and tendon of lower back, initial encounter (principal); V73.6XXA Passenger on bus injured in collision with car, pick-up truck or van in traffic accident, initial encounter; I10 Essential (primary) hypertension; E78.00 Pure hypercholesterolemia, unspecified; I25.10 Atherosclerotic heart disease of native coronary artery without angina pectoris; E11.9 Type 2 diabetes mellitus without complications; Z79.84 Long term (current) use of oral hypoglycemic drugs
CPT/HCPCS: 99282

== ENCOUNTER 2018-07-29 10:46 | Emergency (ER) | payer BC, MEDICAID ==
[2018-07-29 10:51] VITALS: BP 161/114
[2018-07-29] MEDS ORDERED: oxyCODONE 5 MG TABLET PO STA (12:10)
--- NOTE | 2018-07-29 12:12 | ED Physician Documentation ---
PD HPI LOWER EXT INJURY - Stated complaint Stated Complaint: RIGHT HIP PX - Chief complaint Chief Complaint: Ext Problem - History obtained from History obtained from: Patient - History of Present Illness PD HPI LOW EXT INJURY LOCATION: Right, Hip Type of injury: Other (no injury, 4 days R hip pain, worse with walking and laying on it. No fevers.) Review of Systems Constitutional: denies: Fever, Chills Musculoskeletal: reports: Back pain (chronic). denies: Neck pain PD PAST MEDICAL HISTORY - Past Medical History Cardiovascular: Hypertension, High cholesterol, Coronary artery disease, Angina Respiratory: None Neuro: None Endocrine/Autoimmune: Type 2 diabetes GI: None : None HEENT: None Psych: Depression, Anxiety, ADD/ADHD Musculoskeletal: Chronic back pain Derm: None - Past Surgical History Past Surgical History: Yes Cardiovascular: Cardiac catheterization - Present Medications Home Medications: Ambulatory Orders Medication Instructions Recorded Confirmed Gabapentin 900 mg PO TID 09/02/17 07/29/18 metFORMIN [Glucophage] 500 mg PO BIDWM 09/02/17 07/29/18 Metoprolol Succinate 50 mg PO DAILY 01/04/18 07/29/18 cloNIDine [Catapres] 0.1 mg PO BID 01/04/18 07/29/18 Albuterol Sulf [Ventolin Hfa 1 - 2 puffs INH Q4HR PRN #1 inhaler 01/10/18 07/29/18 Inhaler] Sertraline HCl [Zoloft] 200 mg PO DAILY 02/02/18 07/29/18 Aspirin Chewable [St Oneil 81 mg PO DAILY #15 tablet 02/03/18 07/29/18 Aspirin] Nitroglycerin [Nitrostat] 0.4 mg SL Q5MIN PRN #30 tablet 02/03/18 07/29/18 Naproxen [Naprosyn] 500 mg PO BID PRN #20 tablet 05/08/18 07/29/18 Meloxicam [Mobic] 7.5 mg PO BID PRN #20 tablet 07/29/18 - Allergies Allergies/Adverse Reactions: Allergies Allergy/AdvReac Type Severity Reaction Status Date / Time droperidol AdvReac Unknown Verified 06/05/18 19:17 - Social History Does the pt smoke?: No Smoking Status: Never smoker Does the pt drink ETOH?: No Does the pt have substance abuse?: No - Immunizations Immunizations are current?: Yes - POLST Patient has POLST: No POLST Status: Full Code PD ED PE NORMAL - Vitals Vital signs reviewed: Yes - General General: Alert and oriented X 3, No acute distress - Extremities Extremities: Other (There is no pain with internal or external rotation of the right hip. He is little tender over the pelvic brim laterally and anteriorly without concomitant abdominal tenderness. He has mild decreased sensation on both sides of the calf but not the thigh or hip. There is no tenderness over the trochanter bursa.) - Neuro Neuro: Alert and oriented X 3, Normal speech Results - Vitals Vitals: Vital Signs - 24 hr 07/29/18 10:49 Temperature 36.1 C L Heart Rate 128 H Respiratory 20 Rate Blood Pressure 161/114 H O2 Saturation 97 Oxygen O2 Source Room air - Rads (name of study) R hip Radiology: EMP read contemporaneously (Neg) PD MEDICAL DECISION MAKING - ED course ED course: This is a 48-year-old gentleman with atraumatic right hip pain 4 days duration. Nothing in the history or physical examination sent suggests emergency medical condition. I asked him if he was taking any pain medication and he said no. SILICATOR was reviewed, he filled 120 hydrocodone, 10 mg 6 days ago and after being confronted with that he says he is taking that for his back but it does nothing for his hip. Departure - Departure Disposition: 01 Home, Self Care Clinical Impression: Right hip pain Condition: Good Record reviewed to determine appropriate education?: Yes Instructions: Iliotibial Band Stretch Prescriptions: Meloxicam [Mobic] 7.5 mg PO BID PRN #20 tablet PRN Reason: Pain Comments: Call your doctor to arrange a follow-up appointment, make the next available appointment. In the interim, return anytime if worse or if new symptoms develop. Your blood pressure was elevated today on check into the emergency department. This does not mean that you have hypertension, it is a common phenomenon to come to the emergency department and have elevated blood pressure. I recommend that you see your primary care physician within the week to have it rechecked when you are feeling better.
--- NOTE | 2018-07-29 12:55 | XRAY Report ---
Reason: hip pain Procedure Date: 07/29/2018 Accession Number: [id number] / [id number] Procedure: XR - Hip w/Pelvis 2-3V RT CPT Code: FULL RESULT: EXAM: RIGHT HIP RADIOGRAPHY EXAM DATE: 07/29/2018 12:45 PM. CLINICAL HISTORY: Hip pain. COMPARISON: XR HIP UNILAT MIN 2 VIEW 01/21/2008 10:11 AM. TECHNIQUE: 2 views. FINDINGS: Bones: No acute fracture or bony lesion. Minimal degenerative spurring. Joints: Normal alignment. No dislocation. No significant joint space narrowing. Soft Tissues: Normal. No soft tissue swelling. IMPRESSION: 1. No osseous abnormalities. RADIA
== END 2018-07-29 13:22 | disposition home or self-care (01) ==
LOC: ED 10:46
DX: M25.551 Pain in right hip (principal); I10 Essential (primary) hypertension; E78.00 Pure hypercholesterolemia, unspecified; I25.10 Atherosclerotic heart disease of native coronary artery without angina pectoris; E11.9 Type 2 diabetes mellitus without complications; Z79.82 Long term (current) use of aspirin
CPT/HCPCS: 73502; 99283; A9270

== ENCOUNTER 2018-08-25 10:56 | Emergency (ER) | payer BC, MEDICAID ==
[2018-08-25 11:19] LABS: BASOPHILS # (AUTO) 0.1 10^3/uL (0.0-0.1); BASOPHILS % (AUTO) 0.9 %; EOSINOPHILS # (AUTO) 0.3 10^3/uL (0.0-0.7); EOSINOPHILS % (AUTO) 4.2 %; LYMPHOCYTES # (AUTO) 1.2 10^3/uL (1.5-3.5); LYMPHOCYTES % (AUTO) 15.2 %; MEAN CORPUSCULAR HEMOGLOBIN 30.8 pg (27.0-31.0); MEAN CORPUSCULAR HGB CONC 34.1 g/dL (32.0-36.0); MEAN CORPUSCULAR VOLUME 90.3 fL (80.0-94.0); MEAN PLATELET VOLUME 7.6 fL (7.4-11.4); MONOCYTES # (AUTO) 0.4 10^3/uL (0.0-1.0); NEUTROPHILS # (AUTO) 6.1 10^3/uL (1.5-6.6); NEUTROPHILS % (AUTO) 74.7 %; PLT - PLATELET COUNT 216 10^3/uL (130-450); RED BLOOD COUNT 4.87 10^6/uL (4.70-6.10); RED CELL DISTRIBUTION WIDTH 13.4 % (12.0-15.0); WHITE BLOOD COUNT 8.1 x10^3/uL (4.8-10.8)
[2018-08-25 11:35] LABS: ALBUMIN 4.5 g/dL (3.2-5.5); ALBUMIN/GLOBULIN RATIO 1.5 (1.0-2.2); BILIRUBIN,TOTAL 0.6 mg/dL (0.2-1.0); CALCIUM 9.6 mg/dL (8.5-10.3); TOTAL PROTEIN 7.5 g/dL (6.7-8.2)
--- NOTE | 2018-08-25 11:38 | XRAY Report ---
Reason: Chest Pain Procedure Date: 08/25/2018 Accession Number: [id number] / [id number] Procedure: XR - Chest 1 View X-Ray CPT Code: 41992 FULL RESULT: EXAM: CHEST RADIOGRAPHY EXAM DATE: 08/25/2018 11:25 AM. CLINICAL HISTORY: Chest pain. COMPARISON: CHEST 1 VIEW 02/22/2018 11:45 PM. TECHNIQUE: 1 view. FINDINGS: Lungs/Pleura: No focal opacities evident. No pleural effusion. No pneumothorax. Mediastinum: Apparent borderline cardiomegaly may be due to AP portable technique, unchanged from prior. Other: ACDF hardware partially imaged. IMPRESSION: Stable exam with no acute cardiopulmonary abnormality detected. RADIA
[2018-08-25] MEDS ORDERED: ASPIRIN CHEW 81 MG TABLET PO STA (11:40)
[2018-08-25] MEDS ORDERED: HEPARIN 5,000 UNIT/ML VIAL IVP STA (12:08)
[2018-08-25] MEDS ORDERED: NITROGLYCERIN 50 MG/250 ML 50 MG/250 ML BOTTLE IV STA (12:08)
[2018-08-25] MEDS ORDERED: HEPARIN 25000UNITS/500ML (D5W) 25,000 UNIT/500 ML BAG IV STA (12:08)
[2018-08-25] MEDS ORDERED: METOPROLOL TARTRATE 50 MG TABLET PO STA (12:08)
--- NOTE | 2018-08-25 12:08 | ED Physician Documentation ---
PD HPI CHEST PAIN - Stated complaint Stated Complaint: CHEST PX - Chief complaint Chief Complaint: Cardiac - History obtained from History obtained from: Patient - History of Present Illness Timing - onset: Last night (This is a 48-year-old gentleman with known coronary disease. It sounds like he had a cath last year with distal coronary disease that was not intervened able. He has been nauseous for 5 days and since last night he started having episodic squeezing left chest pain radiating to the left shoulder with rest associated with shortness of breath. The pain is not relieved by his nitroglycerin. He has been using his inhaler with only modest relief. He denies coughing. He denies pedal edema.) Review of Systems Ten Systems: 10 systems reviewed and negative Constitutional: reports: Sweats. denies: Fever, Chills Cardiac: reports: Chest pain / pressure. denies: Palpitations, Pedal edema, Raf f pain Respiratory: reports: Dyspnea. denies: Cough PD PAST MEDICAL HISTORY - Past Medical History Cardiovascular: Hypertension, High cholesterol, Coronary artery disease, Angina Respiratory: None Neuro: None Endocrine/Autoimmune: Type 2 diabetes GI: None : None HEENT: None Psych: Depression, Anxiety, ADD/ADHD Musculoskeletal: Chronic back pain Derm: None - Past Surgical History Past Surgical History: Yes Cardiovascular: Cardiac catheterization - Present Medications Home Medications: Ambulatory Orders Medication Instructions Recorded Confirmed Gabapentin 900 mg PO TID 09/02/17 07/29/18 metFORMIN [Glucophage] 500 mg PO BIDWM 09/02/17 07/29/18 Metoprolol Succinate 50 mg PO DAILY 01/04/18 07/29/18 cloNIDine [Catapres] 0.1 mg PO BID 01/04/18 07/29/18 Albuterol Sulf [Ventolin Hfa 1 - 2 puffs INH Q4HR PRN #1 inhaler 01/10/18 07/29/18 Inhaler] Sertraline HCl [Zoloft] 200 mg PO DAILY 02/02/18 07/29/18 Aspirin Chewable [St Oneil 81 mg PO DAILY #15 tablet 02/03/18 07/29/18 Aspirin] Nitroglycerin [Nitrostat] 0.4 mg SL Q5MIN PRN #30 tablet 02/03/18 07/29/18 Naproxen [Naprosyn] 500 mg PO BID PRN #20 tablet 05/08/18 07/29/18 Meloxicam [Mobic] 7.5 mg PO BID PRN #20 tablet 07/29/18 - Allergies Allergies/Adverse Reactions: Allergies Allergy/AdvReac Type Severity Reaction Status Date / Time droperidol AdvReac Unknown Verified 08/25/18 11:04 - Social History Does the pt smoke?: No Smoking Status: Never smoker Does the pt drink ETOH?: No Does the pt have substance abuse?: No - Family History Family history: reports: Non contributory - Immunizations Immunizations are current?: Yes - POLST Patient has POLST: No POLST Status: Full Code PD ED PE NORMAL - Vitals Vital signs reviewed: Yes - General General: Alert and oriented X 3, Other (Slightly anxious and sweaty) - HEENT HEENT: PERRL, EOMI - Neck Neck: Supple, no meningeal sign, No bony TTP - Cardiac Cardiac: RRR, No murmur - Respiratory Respiratory: No respiratory distress, Clear bilaterally - Abdomen Abdomen: Normal bowel sounds, Soft, Non tender - Back Back: No CVA TTP, No spinal TTP - Derm Derm: Normal color, No rash - Extremities Extremities: No edema, No calf tenderness / cord - Neuro Neuro: Alert and oriented X 3, Normal speech - Psych Psych: Normal mood, Normal affect Results - Vitals Vitals: Vital Signs - 24 hr 08/25/18 08/25/18 08/25/18 11:00 11:19 11:33 Temperature 36.0 C L Heart Rate 78 78 76 Respiratory 20 14 12 Rate Blood Pressure 200/107 H 144/90 H 155/92 H O2 Saturation 98 97 96 08/25/18 08/25/18 08/25/18 12:21 12:43 13:52 Temperature 36.2 C L Heart Rate 71 79 70 Respiratory 12 24 12 Rate Blood Pressure 149/86 H 166/106 H 159/101 H O2 Saturation 98 100 99 08/25/18 14:27 Temperature 36.3 C L Heart Rate 70 Respiratory 17 Rate Blood Pressure 151/96 H O2 Saturation 95 Oxygen O2 Source Room air - EKG (time done) 1103 Rate: Rate (enter#) (77) Rhythm: NSR Perry: LAD (?) QRS: Normal Ischemia: Normal ST segments Computer interpretation: Agree with computer - Labs Labs: Laboratory Tests 0208/25/18 08/25/18 11:15 11:15 11:15 WBC 8.1 RBC 4.87 Hgb 15.0 Hct 44.0 MCV 90.3 MCH 30.8 MCHC 34.1 RDW 13.4 Plt Count 216 MPV 7.6 Neut # (Auto) 6.1 Lymph # (Auto) 1.2 L [place] # (Auto) 0.4 Eos # (Auto) 0.3 Baso # (Auto) 0.1 Absolute Nucleated RBC 0.00 Nucleated RBC % 0.0 Sodium 134 L Potassium 4.4 Chloride 97 L Carbon Dioxide 27 Anion Gap 10.0 BUN 11 Creatinine 1.0 Estimated GFR (MDRD) 79 L Glucose 210 H Calcium 9.6 Total Bilirubin 0.6 AST 33 ALT 23 Alkaline Phosphatase 59 Troponin I < 0.04 Total Protein 7.5 Albumin 4.5 Globulin 3.0 Albumin/Globulin Ratio 1.5 Lipase 31 PD MEDICAL DECISION MAKING - ED course ED course: This is a 48-year-old gentleman with known medically managed coronary disease who presents with a very concerning story for unstable angina. EKG is nonischemic and initial biomarkers are negative. Case discussed by phone with his oracle business analyst, Dr. Henry who recommended nitroglycerin paste, heparin, beta- blockade, atorvastatin, lisinopril. He also recommended transfer for evaluation, unfortunately [facility] was full and after discussion with the patient [facility] was paged for potential transfer. I spoke with a nurse practitioner education and outreach coordinator working with Dr. Lozano and they will consult and defer to the hospitalist for admission. He was accepted to [facility] for higher level of care with cardiology ability by Dr. Topete at 2:20 PM and cobras were completed. About 3 PM pending transfer the patient's wanted to leave AGAINST MEDICAL ADVICE. I discussed with him that unstable angina is often a precursor to a myocardial infarction and the risks of leaving included CA, sudden , hypoxic brain injury, and disability. He understands this and takes these risks upon himself. He understands he is welcome to return at any time if he changes his mind. - Critical Care Time(min): 40 Time Includes: Direct patient care, Review records, Reassess patient, Document care, Coordinate care, Medical consult Procedures included in critical care time: Peripheral IV Procedures excluded from critical care time: EKG Departure - Departure Disposition: Against Medical Advice Clinical Impression: Unstable angina Condition: Serious
[2018-08-25] MEDS ORDERED: ATORVASTATIN 40 MG TABLET PO STA (12:13)
[2018-08-25] MEDS ORDERED: LISINOPRIL 5 MG TABLET PO STA (12:13)
[2018-08-25] MEDS ORDERED: NITROGLYCERIN 2% PASTE TOP STA (12:14)
[2018-08-25] MEDS ORDERED: MORPHINE 2 MG/ML CARPUJECT IVP STA (12:24)
[2018-08-25] MEDS ORDERED: LORazepam 2 MG/ML VIAL IVP STA (12:42)
[2018-08-25 15:13] VITALS: BP 152/100
== END 2018-08-25 15:18 | disposition left against medical advice (07) ==
LOC: ED 10:56
DX: I25.110 Atherosclerotic heart disease of native coronary artery with unstable angina pectoris (principal); I10 Essential (primary) hypertension; E78.00 Pure hypercholesterolemia, unspecified; E11.9 Type 2 diabetes mellitus without complications; Z79.84 Long term (current) use of oral hypoglycemic drugs; Z79.82 Long term (current) use of aspirin
CPT/HCPCS: 36415; 71045; 80053; 83690; 84484; 85025; 93005; 96374; 96375; 99284; 99291

== ENCOUNTER 2018-09-24 10:07 | Emergency (ER) | payer MEDICAID, BC ==
[2018-09-24 10:49] LABS: BASOPHILS % (AUTO) 0.5 %; EOSINOPHILS # (AUTO) 0.1 10^3/uL (0.0-0.7); EOSINOPHILS % (AUTO) 2.3 %; HGB - HEMOGLOBIN 15.2 g/dL (14.0-18.0); LYMPHOCYTES % (AUTO) 15.1 %; MEAN CORPUSCULAR HEMOGLOBIN 30.3 pg (27.0-31.0); MEAN CORPUSCULAR HGB CONC 33.8 g/dL (32.0-36.0); MEAN CORPUSCULAR VOLUME 89.6 fL (80.0-94.0); MEAN PLATELET VOLUME 7.3 fL (7.4-11.4); MONOCYTES # (AUTO) 0.4 10^3/uL (0.0-1.0); MONOCYTES % (AUTO) 5.8 %; NEUTROPHILS # (AUTO) 4.8 10^3/uL (1.5-6.6); NEUTROPHILS % (AUTO) 76.3 %; PLT - PLATELET COUNT 191 10^3/uL (130-450); RED BLOOD COUNT 5.02 10^6/uL (4.70-6.10); RED CELL DISTRIBUTION WIDTH 13.3 % (12.0-15.0); WHITE BLOOD COUNT 6.3 x10^3/uL (4.8-10.8)
[2018-09-24] MEDS ORDERED: diltiaZEM INJ 5 MG/ML VIAL IVP STA (11:01)
--- NOTE | 2018-09-24 11:02 | ED Physician Documentation ---
PD HPI CHEST PAIN - Stated complaint Stated Complaint: CHEST PX - Chief complaint Chief Complaint: Cardiac - History obtained from History obtained from: Patient - History of Present Illness Timing - onset: How many hours ago (8) Timing - onset during: Sleep Timing - details: Waxing and waning Pain level now: 8 Quality: Pain Location: Left chest Improved by: No: Nitro Associated symptoms: No: Shortness of air, Diaphoresis, Nausea, Vomiting Similar symptoms before: Work up / diagnostics (He reports history of similar symptoms numerous times, for which he has undergone cardiac catheterization and stress tests.) - Treatment prior to arrival Treatment prior to arrival: Sublingual nitroglycerin 2, without relief. - Additional information Additional information: The patient is a 48-year-old male who presents with left anterior chest pain that started about 8 hours prior to arrival while lying in bed. He rates it at 8 out of 10 in severity. He denies associated diaphoresis, shortness of breath, nausea or vomiting. He took 1 baby aspirin and sublingual nitroglycerin 2, without relief. He has a history of similar symptoms, and has been evaluated multiple times. He states he lives with constant chest pain that he rates at 3 out of 10 in severity. He has undergone cardiac catheterization and stress tests which reportedly revealed nonoperable lesions. Cardiac risk factors are positive for hypertension, hyperlipidemia, diabetes for which he is on metformin, and family history of valvular heart disease. He quit smoking cigarettes 6 months ago. On further review of systems he denies any recent cough or fever. He reports the only thing that has helped his chest pain in the past has been morphine. Review of Systems Constitutional: denies: Fever, Fatigue Ears: denies: Tinnitus/ringing Nose: denies: Congestion Throat: denies: Sore throat Cardiac: reports: Chest pain / pressure. denies: Palpitations Respiratory: denies: Dyspnea, Cough GI: denies: Abdominal Pain, Nausea, Vomiting : denies: Dysuria Skin: denies: Rash Musculoskeletal: denies: Neck pain, Back pain Neurologic: reports: Headache (After taking nitroglycerin.). denies: Focal weakness, Numbness PD PAST MEDICAL HISTORY - Past Medical History Cardiovascular: Hypertension, High cholesterol, Coronary artery disease, Angina Respiratory: None Neuro: None Endocrine/Autoimmune: Type 2 diabetes GI: None : None HEENT: None Psych: Depression, Anxiety, ADD/ADHD Musculoskeletal: Chronic back pain Derm: None - Past Surgical History Past Surgical History: Yes Cardiovascular: Cardiac catheterization - Present Medications Home Medications: Ambulatory Orders Medication Instructions Recorded Confirmed Gabapentin 900 mg PO TID 09/02/17 07/29/18 metFORMIN [Glucophage] 500 mg PO BIDWM 09/02/17 07/29/18 Metoprolol Succinate 50 mg PO DAILY 01/04/18 07/29/18 cloNIDine [Catapres] 0.1 mg PO BID 01/04/18 07/29/18 Albuterol Sulf [Ventolin Hfa 1 - 2 puffs INH Q4HR PRN #1 inhaler 01/10/18 07/29/18 Inhaler] Sertraline HCl [Zoloft] 200 mg PO DAILY 02/02/18 07/29/18 Aspirin Chewable [St Oneil 81 mg PO DAILY #15 tablet 02/03/18 07/29/18 Aspirin] Nitroglycerin [Nitrostat] 0.4 mg SL Q5MIN PRN #30 tablet 02/03/18 07/29/18 Naproxen [Naprosyn] 500 mg PO BID PRN #20 tablet 05/08/18 07/29/18 Meloxicam [Mobic] 7.5 mg PO BID PRN #20 tablet 07/29/18 - Allergies Allergies/Adverse Reactions: Allergies Allergy/AdvReac Type Severity Reaction Status Date / Time droperidol AdvReac Unknown Verified 08/25/18 11:04 - Social History Does the pt smoke?: No Smoking Status: Former smoker (Quit smoking cigarettes 6 months ago.) Does the pt drink ETOH?: No Does the pt have substance abuse?: No - Immunizations Immunizations are current?: Yes - POLST Patient has POLST: No POLST Status: Full Code PD ED PE NORMAL - Vitals Vital signs reviewed: Yes (Tachycardic and hypertensive.) - General General: Alert and oriented X 3, Well developed/nourished, Other (Appears anxious.) - HEENT HEENT: Atraumatic, Pharynx benign - Neck Neck: No adenopathy, No JVD - Cardiac Cardiac: RRR - Respiratory Respiratory: No respiratory distress, Clear bilaterally, Other (No chest wall tenderness to palpation.) - Abdomen Abdomen: Soft, Non tender - Back Back: No CVA TTP - Derm Derm: No rash - Extremities Extremities: No edema, No calf tenderness / cord - Neuro Neuro: Alert and oriented X 3, No motor deficit, Normal speech Results - Vitals Vitals: Oxygen O2 Source Room air - EKG (time done) 10:23 Rate: Rate (enter#) (128) Rhythm: Sinus tachycardia, LAE Zapata: Normal Ischemia: ST depression (anterolateral leads) Compare to prior EKG: Changed from prior EKG (Compared to 08/25/2018, tachycardia and ST depression are new.) Computer interpretation: Agree with computer - Labs Labs: Laboratory Tests 09/24/18 09/24/18 09/24/18 10:44 10:44 10:44 WBC 6.3 RBC 5.02 Hgb 15.2 Hct 44.9 MCV 89.6 MCH 30.3 MCHC 33.8 RDW 13.3 Plt Count 191 MPV 7.3 L Neut # (Auto) 4.8 Lymph # (Auto) 1.0 L [place] # (Auto) 0.4 Eos # (Auto) 0.1 Baso # (Auto) 0.0 Absolute Nucleated RBC 0.00 Nucleated RBC % 0.0 Sodium 136 Potassium 3.7 Chloride 100 L Carbon Dioxide 26 Anion Gap 10.0 BUN 11 Creatinine 0.9 Estimated GFR (MDRD) 89 Glucose 171 H Calcium 9.7 Total Bilirubin 0.6 AST 33 ALT < 10 L Alkaline Phosphatase 62 Troponin I < 0.04 Total Protein 7.6 Albumin 4.5 Globulin 3.1 Albumin/Globulin Ratio 1.5 Lipase 26 09/24/18 14:31 WBC RBC Hgb Hct MCV MCH MCHC RDW Plt Count MPV Neut # (Auto) Lymph # (Auto) [place] # (Auto) Eos # (Auto) Baso # (Auto) Absolute Nucleated RBC Nucleated RBC % Sodium Potassium Chloride Carbon Dioxide Anion Gap BUN Creatinine Estimated GFR (MDRD) Glucose Calcium Total Bilirubin AST ALT Alkaline Phosphatase Troponin I < 0.04 Total Protein Albumin Globulin Albumin/Globulin Ratio Lipase - Rads (name of study) CXR Radiology: Prelim report reviewed, EMP read contemporaneously, See rad report (No acute cardiopulmonary disease.) PD MEDICAL DECISION MAKING - ED course Complexity details: reviewed old records, reviewed results, re-evaluated patient, considered differential, d/w patient ED course: The patient presents with atypical chest pain and tachycardia. The underlying cause is unclear at this time. His electrocardiogram does not reveal acute ischemic abnormalities, and troponin 2, 4 hours apart, is negative. The patient demonstrates significant anxiety, and actually wanted to leave AGAINST MEDICAL ADVICE because he was feeling anxious and felt as if he needed to be up walking around. I was able to convince him to stay for completion of his evaluation, by allowing him to sit in the hallway where there was more open space. CBC and chemistry panel are essentially normal, except for mildly elevated blood sugar of 171. Troponin is normal 2. Chest x-ray reveals no acute cardiopulmonary abnormality. His presentation does not suggest pulmonary embolus. Treatment in the emergency department included administration of normal saline, a total of 2 L IV. Diltiazem 15 mg administered IV, lorazepam 0.5 mg IV, and 3 baby aspirin orally. Morphine 4 mg was administered IV, which reduced his chest discomfort from 8 out of 10 down to 5 out of 10 in severity. An additional 4 mg morphine was administered IV, which reduced his chest pain down to his reported baseline of 3 out of 10 in severity. After reviewing his medical record and observing him in the emergency department for several hours, I agreed to discharge him to home, as he presents with a rather atypical picture, and he does not desire to undergo yet another workup similar to those he has undergone in the past. I discussed with him potentially worrisome signs or symptoms that should prompt reevaluation in the emergency department. Departure - Departure Disposition: 01 Home, Self Care Clinical Impression: Sinus tachycardia Chest pain Qualifiers: Chest pain type: unspecified Qualified Code(s): R07.9 - Chest pain, unspecified Condition: Stable Instructions: ED Chest Pain Atypical Unkn Cause, ED Tachycardia Pat PSVT Follow-Up: Mt Mitchell MD [Primary Care Provider] - Comments: Continue your medications as previously prescribed. Follow-up with your primary physician within 1 week. Call to schedule an appo intment. Return to the emergency department if you develop increasing chest pain, shortness of breath, or otherwise worsening symptoms. Discharge Date/Time: 09/24/18 15:50
[2018-09-24 11:03] LABS: ALBUMIN 4.5 g/dL (3.2-5.5); ALBUMIN/GLOBULIN RATIO 1.5 (1.0-2.2); ALKALINE PHOSPHATASE 62 IU/L (42-121); ALT ALANINE AMINOTRANSFERASE < 10 IU/L (10-60); AST ASPARTATE AMINOTRANSFERASE 33 IU/L (10-42); BILIRUBIN,TOTAL 0.6 mg/dL (0.2-1.0); BUN - BLOOD UREA NITROGEN 11 mg/dL (6-20); CALCIUM 9.7 mg/dL (8.5-10.3); CARBON DIOXIDE - CO2 26 mmol/L (21-32); CHLORIDE 100 mmol/L (101-111); CREATININE 0.9 mg/dL (0.6-1.2); GFR - MDRD 89 (>89); GLUCOSE 171 mg/dL (70-100); LIPASE 26 U/L (22-51); SODIUM 136 mmol/L (135-145); TOTAL PROTEIN 7.6 g/dL (6.7-8.2)
[2018-09-24] MEDS ORDERED: ASPIRIN CHEW 81 MG TABLET PO STA ×2 (11:09→11:10)
--- NOTE | 2018-09-24 11:12 | XRAY Report ---
Reason: chest pain Procedure Date: 09/24/2018 Accession Number: [id number] / [id number] Procedure: XR - Chest 1 View X-Ray CPT Code: 05667 FULL RESULT: EXAM: CHEST RADIOGRAPHY EXAM DATE: 09/24/2018 10:58 AM. CLINICAL HISTORY: Chest pain. COMPARISON: CHEST 1 VIEW 08/25/2018 11:15 AM. TECHNIQUE: 1 view. FINDINGS: Lungs/Pleura: No focal opacities evident. No pleural effusion. No pneumothorax. Decreased lung volume Mediastinum: Within exam limitations, the cardiomediastinal contour is normal. Other: Cervical spine plate. DJD spine. IMPRESSION: No active cardiopulmonary disease RADIA
[2018-09-24] MEDS ORDERED: LORazepam 2 MG/ML VIAL IVP STA (11:17)
[2018-09-24] MEDS: SODIUM CHLORIDE 0.9% 1,000 ML IV ONE ×2 (11:26→13:26)
[2018-09-24] MEDS ORDERED: MORPHINE 2 MG/ML SYRINGE IVP STA ×3 (12:11→14:27)
[2018-09-24] MEDS ORDERED: SODIUM CHLORIDE 0.9% 1,000 ML IV ONE (13:08)
[2018-09-24 15:33] VITALS: BP 164/93
== END 2018-09-24 15:50 | disposition home or self-care (01) ==
LOC: ED 10:07
DX: R07.89 Other chest pain (principal); R00.0 Tachycardia, unspecified; F41.9 Anxiety disorder, unspecified; I25.10 Atherosclerotic heart disease of native coronary artery without angina pectoris; Z98.61 Coronary angioplasty status; I10 Essential (primary) hypertension; E78.5 Hyperlipidemia, unspecified; E11.9 Type 2 diabetes mellitus without complications; Z79.84 Long term (current) use of oral hypoglycemic drugs; Z87.891 Personal history of nicotine dependence; Z82.49 Family history of ischemic heart disease and other diseases of the circulatory system; Z79.82 Long term (current) use of aspirin
CPT/HCPCS: 36415; 71045; 80053; 83690; 84484; 85025; 93005; 96361; 96374; 96375; 96376; 99284; A9270; J2060; J2270

== ENCOUNTER 2018-10-09 15:23 | Emergency (ER) | payer BC, MEDICAID ==
--- NOTE | 2018-10-09 15:42 | ED Physician Documentation ---
PD HPI CHEST PAIN - Stated complaint Stated Complaint: CHEST PX - Chief complaint Chief Complaint: Cardiac - History obtained from History obtained from: Patient - History of Present Illness Timing - onset: How many hours ago (5), Today Timing - onset during: Rest, Light activity Timing - duration: Hours (5) Timing - details: Abrupt onset, Still present, Waxing and waning Quality: Aching, Pain Location: Left chest Radiation: Neck, Left upper extremity Improved by: No: Rest, Nitro Worsened by: No: Inspiration, Movement Associated symptoms: Shortness of air. No: Nausea, Feeling faint / dizzy, Palpitations, Cough Similar symptoms before: Diagnosis (presumed anginal with small vessel/nonstentable occlusion of 80% per patient, based on heart cath a year ago.) Review of Systems Constitutional: denies: Fever Nose: denies: Rhinorrhea / runny nose, Congestion Throat: denies: Sore throat Cardiac: denies: Palpitations, Pedal edema, Calf pain Respiratory: denies: Dyspnea, Cough GI: denies: Vomiting, Diarrhea Skin: denies: Rash, Lesions Neurologic: reports: Generalized weakness. denies: Focal weakness, Numbness, Near syncope PD PAST MEDICAL HISTORY - Past Medical History Cardiovascular: Hypertension, High cholesterol, Coronary artery disease, Angina Respiratory: None Neuro: None Endocrine/Autoimmune: Type 2 diabetes GI: None : None HEENT: None Psych: Depression, Anxiety, ADD/ADHD Musculoskeletal: Chronic back pain Derm: None - Past Surgical History Past Surgical History: Yes Cardiovascular: Cardiac catheterization - Present Medications Home Medications: Ambulatory Orders Medication Instructions Recorded Confirmed Gabapentin 900 mg PO TID 09/02/17 07/29/18 metFORMIN [Glucophage] 500 mg PO BIDWM 09/02/17 07/29/18 Metoprolol Succinate 50 mg PO DAILY 01/04/18 07/29/18 cloNIDine [Catapres] 0.1 mg PO BID 01/04/18 07/29/18 Albuterol Sulf [Ventolin Hfa 1 - 2 puffs INH Q4HR PRN #1 inhaler 01/10/18 07/29/18 Inhaler] Sertraline HCl [Zoloft] 200 mg PO DAILY 02/02/18 07/29/18 Aspirin Chewable [St Oneil 81 mg PO DAILY #15 tablet 02/03/18 07/29/18 Aspirin] Nitroglycerin [Nitrostat] 0.4 mg SL Q5MIN PRN #30 tablet 02/03/18 07/29/18 Naproxen [Naprosyn] 500 mg PO BID PRN #20 tablet 05/08/18 07/29/18 Meloxicam [Mobic] 7.5 mg PO BID PRN #20 tablet 07/29/18 - Allergies Allergies/Adverse Reactions: Allergies Allergy/AdvReac Type Severity Reaction Status Date / Time droperidol AdvReac Unknown Verified 08/25/18 11:04 - Social History Does the pt smoke?: No Smoking Status: Former smoker (Quit smoking cigarettes 6 months ago.) Does the pt drink ETOH?: No Does the pt have substance abuse?: No - Immunizations Immunizations are current?: Yes - POLST Patient has POLST: No POLST Status: Full Code PD ED PE NORMAL - Vitals Vital signs reviewed: Yes - General General: Alert and oriented X 3, No acute distress, Well developed/nourished - Neck Neck: Supple, no meningeal sign, No adenopathy - Cardiac Cardiac: RRR (regular but tachycardic), No murmur - Respiratory Respiratory: Clear bilaterally - Abdomen Abdomen: Normal bowel sounds, Soft, Non tender - Derm Derm: Normal color, Warm and dry - Extremities Extremities: No deformity, No tenderness to palpate, Normal ROM s pain, No edema, No calf tenderness / cord - Neuro Neuro: Alert and oriented X 3, No motor deficit, Normal speech Results - Vitals Vitals: Vital Signs - 24 hr 10/09/18 10/09/18 10/09/18 15:28 16:30 16:32 Temperature 35.8 C L Heart Rate 116 H 103 H 91 Respiratory 20 16 18 Rate Blood Pressure 157/94 H 160/100 H 171/107 H O2 Saturation 99 98 98 Oxygen O2 Source Room air - EKG (time done) 15:30 Rate: Rate (enter#) (105) Rhythm: Sinus tachycardia [place]: Normal Intervals: Normal IA QRS: Normal Ischemia: Normal ST segments, Non specific changes (t flattening laterally). No: ST elevation c/w ischemia, ST depression - Labs Labs: Laboratory Tests 10/09/18 10/09/18 10/09/18 15:37 15:37 15:37 WBC 8.4 RBC 4.69 L Hgb 14.3 Hct 42.4 MCV 90.4 MCH 30.5 MCHC 33.7 RDW 13.3 Plt Count 213 MPV 7.2 L Neut # (Auto) 6.0 Lymph # (Auto) 1.5 [place] # (Auto) 0.6 Eos # (Auto) 0.3 Baso # (Auto) 0.0 Absolute Nucleated RBC 0.00 Nucleated RBC % 0.0 Sodium 135 Potassium 3.4 L Chloride 97 L Carbon Dioxide 27 Anion Gap 11.0 BUN 9 Creatinine 0.9 Estimated GFR (MDRD) 89 Glucose 279 H Calcium 9.4 Magnesium Total Bilirubin 0.4 AST 30 ALT 20 Alkaline Phosphatase 58 Troponin I < 0.04 Total Protein 7.5 Albumin 4.1 Globulin 3.4 Albumin/Globulin Ratio 1.2 Lipase 32 10/09/18 15:37 WBC RBC Hgb Hct MCV MCH MCHC RDW Plt Count MPV Neut # (Auto) Lymph # (Auto) [place] # (Auto) Eos # (Auto) Baso # (Auto) Absolute Nucleated RBC Nucleated RBC % Sodium Potassium Chloride Carbon Dioxide Anion Gap BUN Creatinine Estimated GFR (MDRD) Glucose Calcium Magnesium 1.7 Total Bilirubin AST ALT Alkaline Phosphatase Troponin I Total Protein Albumin Globulin Albumin/Globulin Ratio Lipase - Rads (name of study) chest xray Radiology: Prelim report reviewed (No acute process seen without any infiltrates nor signs of congestion.), EMP read contemporaneously PD MEDICAL DECISION MAKING - ED course Complexity details: reviewed old records, reviewed results (negative troponin after 5 hours of pain.), re-evaluated patient, considered differential (He has had similar episodes in the past. He has reportedly known coronary disease with small vessel occlusions of to 80% as reported by the patient on heart cath from last year. His episodes are presumed some anginal or spasm episodes according to the patient's understanding from the heat engineering teacher. He has not had any positive troponins in the past. The current chest pain is similar to other episodes he has had and was not instigated by any heavy exertion, recent cough or cold, injury.We will check troponins. His EKG is similar to prior ones. His heart rate and blood pressure are elevated and will get some beta-blockers. Nitrites have not been useful in the past and he did try 3 at home already.), d/w patient Departure - Departure Disposition: 01 Home, Self Care Clinical Impression: Chest pain Qualifiers: Chest pain type: precordial pain Qualified Code(s): R07.2 - Precordial pain Coronary heart disease Qualifiers: Coronary Disease-Associated Artery/Lesion type: elem artery [place] vs. trans planted heart: elem heart Associated angina: with unspecified angina Qualified Code(s): I25.119 - Atherosclerotic heart disease of elem coronary artery with unspecified angina pectoris Condition: Stable Record reviewed to determine appropriate education?: Yes Follow-Up: Mt Mitchell MD [Primary Care Provider] - Comments: No signs of heart attack at this time based on EKG and troponin. Continue usual medications at home. Follow-up as needed.
[2018-10-09 15:57] LABS: BASOPHILS % (AUTO) 0.5 %; EOSINOPHILS # (AUTO) 0.3 10^3/uL (0.0-0.7); EOSINOPHILS % (AUTO) 3.3 %; HGB - HEMOGLOBIN 14.3 g/dL (14.0-18.0); LYMPHOCYTES # (AUTO) 1.5 10^3/uL (1.5-3.5); LYMPHOCYTES % (AUTO) 17.9 %; MEAN CORPUSCULAR HEMOGLOBIN 30.5 pg (27.0-31.0); MEAN CORPUSCULAR HGB CONC 33.7 g/dL (32.0-36.0); MEAN CORPUSCULAR VOLUME 90.4 fL (80.0-94.0); MEAN PLATELET VOLUME 7.2 fL (7.4-11.4); MONOCYTES # (AUTO) 0.6 10^3/uL (0.0-1.0); MONOCYTES % (AUTO) 7.1 %; NEUTROPHILS % (AUTO) 71.2 %; PLT - PLATELET COUNT 213 10^3/uL (130-450); RED BLOOD COUNT 4.69 10^6/uL (4.70-6.10); RED CELL DISTRIBUTION WIDTH 13.3 % (12.0-15.0); WHITE BLOOD COUNT 8.4 x10^3/uL (4.8-10.8)
[2018-10-09] MEDS ORDERED: MORPHINE 10 MG/ML VIAL IVP STA ×2 (16:05→16:39)
[2018-10-09] MEDS ORDERED: METOPROLOL 5 MG/5 ML VIAL IVP STA ×2 (16:05→16:39)
[2018-10-09] MEDS ORDERED: KETOROLAC 15 MG/ML VIAL IVP STA (16:06)
[2018-10-09] MEDS ORDERED: SODIUM CHLORIDE 0.9% 1,000 ML IV ONE (16:08)
[2018-10-09 16:09] LABS: ALBUMIN 4.1 g/dL (3.2-5.5); ALBUMIN/GLOBULIN RATIO 1.2 (1.0-2.2); BILIRUBIN,TOTAL 0.4 mg/dL (0.2-1.0); CALCIUM 9.4 mg/dL (8.5-10.3); CREATININE 0.9 mg/dL (0.6-1.2); TOTAL PROTEIN 7.5 g/dL (6.7-8.2)
--- NOTE | 2018-10-09 16:25 | XRAY Report ---
Reason: Chest pain unrelieved after nitro Procedure Date: 10/09/2018 Accession Number: [id number] / [id number] Procedure: XR - Chest 2 View X-Ray CPT Code: 96349 FULL RESULT: EXAM: CHEST RADIOGRAPHY EXAM DATE: 10/09/2018 04:13 PM. CLINICAL HISTORY: Chest pain unrelieved after nitro. COMPARISON: CHEST 1 VIEW 09/24/2018 10:39 AM. TECHNIQUE: 2 views. FINDINGS: Lungs/Pleura: No focal opacities evident. No pleural effusion. No pneumothorax. Normal volumes. Mediastinum: Heart and mediastinal contours are unremarkable. Other: None. IMPRESSION: No acute intrathoracic plain film abnormality. RADIA
[2018-10-09] MEDS ORDERED: METOPROLOL SUCCINATE 50 MG TABLET PO STA (16:51)
[2018-10-09 17:42] VITALS: BP 145/92
== END 2018-10-09 17:41 | disposition home or self-care (01) ==
LOC: ED 15:23
DX: R07.2 Precordial pain (principal); I25.119 Atherosclerotic heart disease of native coronary artery with unspecified angina pectoris; I10 Essential (primary) hypertension; E78.00 Pure hypercholesterolemia, unspecified; Z87.891 Personal history of nicotine dependence; E11.9 Type 2 diabetes mellitus without complications; Z79.84 Long term (current) use of oral hypoglycemic drugs
CPT/HCPCS: 36415; 71046; 80053; 83690; 83735; 84484; 85025; 93005; 96374; 96375; 96376; 99284; A9270

== ENCOUNTER 2018-10-18 09:05 | Emergency (ER) | payer OTHER, MEDICAID ==
[2018-10-18 09:51] LABS: BASOPHILS # (AUTO) 0.1 10^3/uL (0.0-0.1); BASOPHILS % (AUTO) 1.1 %; EOSINOPHILS # (AUTO) 0.3 10^3/uL (0.0-0.7); EOSINOPHILS % (AUTO) 3.5 %; HGB - HEMOGLOBIN 15.9 g/dL (14.0-18.0); LYMPHOCYTES # (AUTO) 1.5 10^3/uL (1.5-3.5); LYMPHOCYTES % (AUTO) 17.1 %; MEAN CORPUSCULAR HEMOGLOBIN 30.3 pg (27.0-31.0); MEAN CORPUSCULAR HGB CONC 33.8 g/dL (32.0-36.0); MEAN CORPUSCULAR VOLUME 89.6 fL (80.0-94.0); MEAN PLATELET VOLUME 7.4 fL (7.4-11.4); MONOCYTES # (AUTO) 0.6 10^3/uL (0.0-1.0); MONOCYTES % (AUTO) 6.8 %; NEUTROPHILS # (AUTO) 6.1 10^3/uL (1.5-6.6); NEUTROPHILS % (AUTO) 71.5 %; PLT - PLATELET COUNT 235 10^3/uL (130-450); RED BLOOD COUNT 5.25 10^6/uL (4.70-6.10); RED CELL DISTRIBUTION WIDTH 13.7 % (12.0-15.0); WHITE BLOOD COUNT 8.6 x10^3/uL (4.8-10.8)
[2018-10-18 10:04] LABS: ALBUMIN 4.5 g/dL (3.2-5.5); ALBUMIN/GLOBULIN RATIO 1.3 (1.0-2.2); BILIRUBIN,TOTAL 0.7 mg/dL (0.2-1.0); CALCIUM 10.1 mg/dL (8.5-10.3)
[2018-10-18] MEDS ORDERED: SODIUM CHLORIDE 0.9% 1,000 ML IV ONE (10:06)
--- NOTE | 2018-10-18 10:09 | ED Physician Documentation ---
PD HPI CHEST PAIN - Stated complaint Stated Complaint: CHEST PAIN - Chief complaint Chief Complaint: Cardiac - History obtained from History obtained from: Patient - History of Present Illness Timing - onset: Enter time (0600), Today Timing - onset during: Sleep Timing - duration: Hours Timing - details: Abrupt onset, Still present Pain level max: 8 Pain level now: 8 Quality: Pressure, Sharp Location: Substernal, Left chest Radiation: No: Jaw, Neck, Back, Abdominal, Left upper extremity, Right upper extremity Improved by: Nothing Associated symptoms: No: Shortness of air, Diaphoresis, Nausea, Vomiting, Feeling faint / dizzy, General Weakness, Palpitations, Cough Similar symptoms before: Diagnosis (angina) Recently seen: Not recently seen - Additional information Additional information: 48-year-old male with a history of coronary artery disease and hypertension has developed anginal symptoms this morning at 6 AM. The pain awoke him from sleep located in the left substernal chest similar to what is had previously. He usually will take some nitroglycerin and had relief of his pain. This morning he has done this she has not had relief of the pain he has had persistence of the pain is come to the emergency department for evaluation. He reports that he has 3 out of 10 pain on a background continuously and he has been into see the freelance photographer and he has vessels that are not stentable with greater than 80% occlusion. He is come into the emergency department probably a dozen times in the past 2 years for angina and we have been able to control his pain with morphine. Patient denies any current illness denies any change to his usual pattern of behavior and he states that he did take his metoprolol last night and this morning. Review of Systems Constitutional: denies: Fever Eyes: denies: Decreased vision Ears: denies: Ear pain Nose: denies: Congestion Throat: denies: Sore throat Cardiac: reports: Chest pain / pressure. denies: Palpitations, Pedal edema, Calf pain Respiratory: denies: Dyspnea, Cough GI: denies: Abdominal Pain, Nausea, Vomiting : denies: Dysuria, Frequency PD PAST MEDICAL HISTORY - Past Medical History Past Medical History: Yes Cardiovascular: Hypertension, High cholesterol, Coronary artery disease, Angina Respiratory: None Neuro: None Endocrine/Autoimmune: Type 2 diabetes GI: None : None HEENT: None Psych: Depression, Anxiety, ADD/ADHD Musculoskeletal: Chronic back pain Derm: None - Past Surgical History Past Surgical History: Yes Cardiovascular: Cardiac catheterization - Present Medications Home Medications: Ambulatory Orders Medication Instructions Recorded Confirmed Gabapentin 900 mg PO TID 09/02/17 10/18/18 metFORMIN [Glucophage] 500 mg PO BIDWM 09/02/17 10/18/18 Metoprolol Succinate 50 mg PO DAILY 01/04/18 10/18/18 cloNIDine [Catapres] 0.1 mg PO BID 01/04/18 10/18/18 Albuterol Sulf [Ventolin Hfa 1 - 2 puffs INH Q4HR PRN #1 inhaler 01/10/18 10/18/18 Inhaler] Sertraline HCl [Zoloft] 200 mg PO DAILY 02/02/18 10/18/18 Aspirin Chewable [St Oneil 81 mg PO DAILY #15 tablet 02/03/18 10/18/18 Aspirin] Nitroglycerin [Nitrostat] 0.4 mg SL Q5MIN PRN #30 tablet 02/03/18 10/18/18 - Allergies Allergies/Adverse Reactions: Allergies Allergy/AdvReac Type Severity Reaction Status Date / Time droperidol AdvReac Unknown Verified 10/18/18 09:16 - Social History Does the pt smoke?: Yes Smoking Status: Former smoker Does the pt drink ETOH?: Yes Does the pt have substance abuse?: No - Immunizations Immunizations are current?: Yes - POLST Patient has POLST: No POLST Status: Full Code PD ED PE NORMAL - Vitals Vital signs reviewed: Yes (hypertensive ) - General General: Alert and oriented X 3, Well developed/nourished - HEENT HEENT: Atraumatic, PERRL, EOMI - Neck Neck: Supple, no meningeal sign, No bony TTP - Cardiac Cardiac: RRR, No murmur - Respiratory Respiratory: No respiratory distress, Clear bilaterally - Abdomen Abdomen: Soft, Non tender - Back Back: No CVA TTP, No spinal TTP - Derm Derm: Normal color, Warm and dry, No rash - Extremities Extremities: No deformity, No edema - Neuro Neuro: Alert and oriented X 3, sorority mother 2-12 intact, No motor deficit, No sensory deficit, Normal speech Eye Opening: Spontaneous Motor: Obeys Commands Verbal: Oriented GCS Score: 15 - Psych Psych: Normal mood, Normal affect Results - Vitals Vitals: Vital Signs - 24 hr 10/18/18 10/18/18 10/18/18 09:12 09:26 10:48 Temperature 35.6 C L Heart Rate 78 84 80 Respiratory 10 L 16 7 L Rate Blood Pressure 173/104 H 173/104 H 145/96 H O2 Saturation 99 100 97 10/18/18 10/18/18 13:06 13:18 Temperature Heart Rate 79 79 Respiratory 10 L 13 Rate Blood Pressure 140/94 H 142/94 H O2 Saturation 99 97 Oxygen O2 Source Room air - EKG (time done) 0929 Rate: Rate (enter#) (81) Rhythm: NSR, LAE Compare to prior EKG: Changed from prior EKG (SPT 09-24-18 rate has decreased and ST depression has resolved. ) Computer interpretation: Agree with computer - Labs Labs: Laboratory Tests 10/18/18 10/18/18 10/18/18 09:30 09:30 09:30 WBC 8.6 RBC 5.25 Hgb 15.9 Hct 47.0 MCV 89.6 MCH 30.3 MCHC 33.8 RDW 13.7 Plt Count 235 MPV 7.4 Neut # (Auto) 6.1 Lymph # (Auto) 1.5 [place] # (Auto) 0.6 Eos # (Auto) 0.3 Baso # (Auto) 0.1 Absolute Nucleated RBC 0.01 Nucleated RBC % 0.1 Sodium 139 Potassium 4.4 Chloride 97 L Carbon Dioxide 29 Anion Gap 13.0 BUN 16 Creatinine 1.0 Estimated GFR (MDRD) 79 L Glucose 136 H Calcium 10.1 Total Bilirubin 0.7 AST 30 ALT 30 Alkaline Phosphatase 56 Troponin I < 0.04 Total Protein 8.0 Albumin 4.5 Globulin 3.5 Albumin/Globulin Ratio 1.3 Lipase 40 10/18/18 12:02 WBC RBC Hgb Hct MCV MCH MCHC RDW Plt Count MPV Neut # (Auto) Lymph # (Auto) [place] # (Auto) Eos # (Auto) Baso # (Auto) Absolute Nucleated RBC Nucleated RBC % Sodium Potassium Chloride Carbon Dioxide Anion Gap BUN Creatinine Estimated GFR (MDRD) Glucose Calcium Total Bilirubin AST ALT Alkaline Phosphatase Troponin I < 0.04 Total Protein Albumin Globulin Albumin/Globulin Ratio Lipase - Rads (name of study) chest Radiology: Prelim report reviewed (Impression: No focal consolidation.), EMP read indepedently, See rad report Procedures - IVC sono (time) 1004 Bedside IVC sono: IVC measures (cm) (1.01), IVC collapsed c insp (cm) (complete), Dehydration (est 1-2 liter deficit.) PD MEDICAL DECISION MAKING - ED course Complexity details: reviewed results, re-evaluated patient, considered differential, d/w patient, d/w family ED course: 48-year-old male with a history of coronary artery disease with distal untreated disease has not had relief with the use of nitroglycerin this morning. He has typical symptoms and on interrogation of the inferior vena cava he is found to be significantly dehydrated. He is estimated between 1 and 2 L deficit and IV saline is begun. He does appear to have a fornical organ reflex with elevated blood pressure as well and the expectation is hydration will lower his blood pressure and relieve his chest pain. He has continued chest pain and requires repeated doses of narcotic for pain control. Departure - Departure Disposition: 01 Home, Self Care Clinical Impression: Dehydration, Angina at rest Instructions: ED Chest Pain Angina Stable, ED Dehydration Follow-Up: Mt Mitchell MD [Primary Care Provider] -
--- NOTE | 2018-10-18 10:17 | XRAY Report ---
Reason: chest pain Procedure Date: 10/18/2018 Accession Number: [id number] / [id number] Procedure: XR - Chest 1 View X-Ray CPT Code: 55943 FULL RESULT: EXAM: CHEST RADIOGRAPHY EXAM DATE: 10/18/2018 09:53 AM. CLINICAL HISTORY: Chest pain. COMPARISON: CHEST 2 VIEW 10/09/2018 3:56 PM. TECHNIQUE: 1 view. FINDINGS: Lungs/Pleura: No focal opacities evident. No pleural effusion. No pneumothorax. Mediastinum: Within exam limitations, the cardiomediastinal contour is normal. Other: None. IMPRESSION: No focal consolidation RADIA
[2018-10-18] MEDS ORDERED: MORPHINE 10 MG/ML VIAL IVP STA ×2 (11:56→13:37)
[2018-10-18] MEDS ORDERED: ONDANSETRON 4 MG/2 ML VIAL IVP STA (11:56)
[2018-10-18] MEDS ORDERED: SODIUM CHLORIDE 0.9% 500 ML IV ONE (12:47)
[2018-10-18 13:18] VITALS: BP 142/94
[2018-10-18] MEDS ORDERED: HYDROmorphone 1 MG/ML CARPUJECT IVP STA (14:00)
== END 2018-10-18 14:44 | disposition home or self-care (01) ==
LOC: ED 09:05
DX: E86.0 Dehydration (principal); I20.9 Angina pectoris, unspecified; I25.10 Atherosclerotic heart disease of native coronary artery without angina pectoris; I10 Essential (primary) hypertension; E11.9 Type 2 diabetes mellitus without complications; Z79.84 Long term (current) use of oral hypoglycemic drugs; Z87.891 Personal history of nicotine dependence
CPT/HCPCS: 36415; 71045; 80053; 83690; 84484; 85025; 93005; 96361; 96374; 96375; 96376; 99283; 99284; J1170

== ENCOUNTER 2018-10-29 19:49 | Emergency (ER) | payer OTHER, MEDICAID ==
[2018-10-29] MEDS ORDERED: HYDROmorphone 1 MG/ML CARPUJECT IM STA (20:35)
--- NOTE | 2018-10-29 20:37 | ED Physician Documentation ---
PD HPI BACK INJURY - Stated complaint Stated Complaint: GLF/BACK PX - History obtained from History obtained from: Patient - History of Present Illness Location: Lower (He is 5 days out from a back surgery, he says an L5-S1 fusion done by Dr. Ma in [place]. He was walking today in his laundry room slipped on a T-shirt and fell directly onto his back with severe low back pain, no other injuries. The pain radiates down the legs but no new neurologic symptoms. No saddle anesthesia.) Review of Systems Constitutional: reports: Reviewed and negative Throat: reports: Reviewed and negative Cardiac: reports: Reviewed and negative Respiratory: reports: Reviewed and negative PD PAST MEDICAL HISTORY - Past Medical History Past Medical History: Yes Cardiovascular: Hypertension, High cholesterol, Coronary artery disease, Angina Respiratory: None Neuro: None Endocrine/Autoimmune: Type 2 diabetes GI: None : None HEENT: None Psych: Depression, Anxiety, ADD/ADHD Musculoskeletal: Chronic back pain Derm: None - Past Surgical History Past Surgical History: Yes Ortho: Spine surgery Cardiovascular: Cardiac catheterization - Present Medications Home Medications: Ambulatory Orders Medication Instructions Recorded Confirmed Gabapentin 900 mg PO TID 09/02/17 10/18/18 metFORMIN [Glucophage] 500 mg PO BIDWM 09/02/17 10/18/18 Metoprolol Succinate 50 mg PO DAILY 01/04/18 10/18/18 cloNIDine [Catapres] 0.1 mg PO BID 01/04/18 10/18/18 Albuterol Sulf [Ventolin Hfa 1 - 2 puffs INH Q4HR PRN #1 inhaler 01/10/18 10/18/18 Inhaler] Sertraline HCl [Zoloft] 200 mg PO DAILY 02/02/18 10/18/18 Aspirin Chewable [St Oneil 81 mg PO DAILY #15 tablet 02/03/18 10/18/18 Aspirin] Nitroglycerin [Nitrostat] 0.4 mg SL Q5MIN PRN #30 tablet 02/03/18 10/18/18 Sulfamethoxazole/Trimethoprim 1 each PO BID #14 tablet 10/29/18 [Sulfamethoxazole-Tmp Ds Tablet] - Allergies Allergies/Adverse Reactions: Allergies Allergy/AdvReac Type Severity Reaction Status Date / Time droperidol AdvReac Unknown Verified 10/18/18 09:16 - Social History Does the pt smoke?: No Smoking Status: Never smoker Does the pt drink ETOH?: Yes Does the pt have substance abuse?: No - Immunizations Immunizations are current?: Yes - POLST Patient has POLST: No POLST Status: Full Code PD ED PE NORMAL - Vitals Vital signs reviewed: Yes - General General: Alert and oriented X 3, No acute distress - Abdomen Abdomen: Normal bowel sounds, Soft, Non tender - Back Back: Other (Sutured wounds to either Side of the lumbar spine, clean dry and intact without evidence of infection. He is tender over the low lumbar spine.) - Extremities Extremities: No edema, No calf tenderness / cord - Neuro Neuro: Alert and oriented X 3, Normal speech - Psych Psych: Normal mood, Normal affect Results - Vitals Vitals: Vital Signs - 24 hr 10/29/18 19:50 Temperature 36.0 C L Heart Rate 108 H Respiratory 18 Rate Blood Pressure 131/95 H O2 Saturation 99 Oxygen O2 Source Room air PD MEDICAL DECISION MAKING - ED course ED course: 48-year-old gentleman with increased back pain after a fall, he is recently postop for an L5-S1 fusion. X-rays showed no hardware malfunction. He had an ancillary complaint of folliculitis [place] and he has this on examination. He also notes sores on his rear end. Departure - Departure Disposition: 01 Home, Self Care Clinical Impression: Low back pain Qualifiers: Chronicity: chronic Back pain laterality: midline Sciatica presence: without sciatica Qualified Code(s): M54.5 - Low back pain Condition: Good Record reviewed to determine appropriate education?: Yes Instructions: ED Sprain Strain Lumbar Prescriptions: Sulfamethoxazole/Trimethoprim [Sulfamethoxazole-Tmp Ds Tablet] 1 each PO BID #14 tablet Comments: Follow-up with your spine surgeon as scheduled. Return for new or worsening symptoms. He can take the hydromorphone you have as needed for the pain.
[2018-10-29] MEDS ORDERED: KETOROLAC 60 MG/2 ML VIAL IM STA (21:26)
--- NOTE | 2018-10-29 21:59 | XRAY Report ---
Reason: fell, reinjured back fusion 5 days ago Procedure Date: 10/29/2018 Accession Number: [id number] / [id number] Procedure: XR - Lumbar Spine 2 View CPT Code: FULL RESULT: EXAM: LUMBOSACRAL SPINE RADIOGRAPHY EXAM DATE: 10/29/2018 09:05 PM. CLINICAL HISTORY: Fell, reinjured back fusion 5 days ago. COMPARISONS: LUMBAR SPINE 2 VIEW 10/25/2017 3:14 PM. TECHNIQUE: 2 views. FINDINGS: New posterior rods and pedicle screws at L5-S1 with interbody metallic cage. Mild anterolisthesis of L5 on S1, unchanged. Mild degenerative disk disease with disk height loss at L4-L5. Mild endplate osteophytes at L3-L4 and L2-L3. No evidence for acute fracture. Sacroiliac joints appear unremarkable. IMPRESSION: New fusion hardware at L5-S1. No acute bone findings are seen. See above. RADIA
[2018-10-29] MEDS ORDERED: SULFAMETH/TRIMETH DS 800/160 MG TABLET PO STA (22:05)
[2018-10-29 22:18] VITALS: BP 135/82
== END 2018-10-29 22:23 | disposition home or self-care (01) ==
LOC: ED 19:49
DX: M54.5 Low back pain (principal); W01.0XXA Fall on same level from slipping, tripping and stumbling without subsequent striking against object, initial encounter; Y93.01 Activity, walking, marching and hiking; Y92.008 Other place in unspecified non-institutional (private) residence as the place of occurrence of the external cause; Z98.1 Arthrodesis status; L73.8 Other specified follicular disorders; L98.9 Disorder of the skin and subcutaneous tissue, unspecified; I10 Essential (primary) hypertension; E11.9 Type 2 diabetes mellitus without complications; Z79.84 Long term (current) use of oral hypoglycemic drugs; Z79.82 Long term (current) use of aspirin
CPT/HCPCS: 72100; 96372; 99283; A9270; J1170

== ENCOUNTER 2018-11-03 15:37 | Outpatient (CLI) | payer OTHER, MEDICAID ==
--- NOTE | 2018-11-04 13:26 | XRAY Report ---
Reason: RT HIP PAIN,TRENDELENBURG GAIT Procedure Date: 11/03/2018 Accession Number: [id number] / [id number] Procedure: XR - Hip w/Pelvis 2-3V RT CPT Code: FULL RESULT: EXAM: RIGHT HIP RADIOGRAPHY EXAM DATE: 11/03/2018 03:50 PM. CLINICAL HISTORY: Right hip pain and Trendelenburg gait. COMPARISON: HIP W/PELVIS 2-3V RT 07/29/2018 12:40 PM. TECHNIQUE: 2 views. FINDINGS: Bones: Normal. No fractures or bone lesion. Joints: There is relatively symmetric hip joint space narrowing, mild to moderate. Pubic symphysis and SI joints appear relatively unremarkable. Soft Tissues: Spinal fusion hardware is partially imaged. IMPRESSION: Degenerative changes of the hip. RADIA
== END 2018-11-03 15:38 | disposition home or self-care (01) ==
LOC: DI 15:37
PROVIDERS: ATTEND Physician Assistant Medical
DX: M16.11 Unilateral primary osteoarthritis, right hip (principal)

== ENCOUNTER 2018-11-07 11:03 | Emergency (ER) | payer OTHER, MEDICAID ==
[2018-11-07] MEDS ORDERED: IOVERSOL 320 100 ML VIAL IVP ONE ×3 (11:04→16:13)
[2018-11-07 11:41] LABS: BASOPHILS % (AUTO) 0.7 %; EOSINOPHILS # (AUTO) 0.3 10^3/uL (0.0-0.7); EOSINOPHILS % (AUTO) 5.7 %; HGB - HEMOGLOBIN 14.5 g/dL (14.0-18.0); LYMPHOCYTES # (AUTO) 1.1 10^3/uL (1.5-3.5); LYMPHOCYTES % (AUTO) 17.5 %; MEAN CORPUSCULAR HEMOGLOBIN 29.7 pg (27.0-31.0); MEAN CORPUSCULAR HGB CONC 32.7 g/dL (32.0-36.0); MEAN CORPUSCULAR VOLUME 90.8 fL (80.0-94.0); MONOCYTES # (AUTO) 0.4 10^3/uL (0.0-1.0); MONOCYTES % (AUTO) 6.2 %; NEUTROPHILS # (AUTO) 4.2 10^3/uL (1.5-6.6); NEUTROPHILS % (AUTO) 69.9 %; PLT - PLATELET COUNT 241 10^3/uL (130-450); RED BLOOD COUNT 4.86 10^6/uL (4.70-6.10); RED CELL DISTRIBUTION WIDTH 13.6 % (12.0-15.0); WHITE BLOOD COUNT 6.1 x10^3/uL (4.8-10.8)
[2018-11-07 11:56] LABS: ALBUMIN/GLOBULIN RATIO 1.1 (1.0-2.2); BILIRUBIN,TOTAL 0.6 mg/dL (0.2-1.0); CALCIUM 9.6 mg/dL (8.5-10.3); CREATININE 0.9 mg/dL (0.6-1.2); TOTAL PROTEIN 7.6 g/dL (6.7-8.2)
[2018-11-07] MEDS ORDERED: METOPROLOL 5 MG/5 ML VIAL IVP STA (12:17)
[2018-11-07] MEDS ORDERED: HEPARIN 5,000 UNIT/ML VIAL IVP STA (12:17)
[2018-11-07] MEDS ORDERED: HEPARIN 25000UNITS/500ML (D5W) 25,000 UNIT/500 ML BAG IV STA (12:17)
[2018-11-07] MEDS ORDERED: MORPHINE 10 MG/ML VIAL IVP STA (12:17)
[2018-11-07] MEDS ORDERED: ASPIRIN CHEW 81 MG TABLET PO STA (12:18)
[2018-11-07] MEDS ORDERED: NITROGLYCERIN 2% PASTE TOP STA (12:19)
--- NOTE | 2018-11-07 12:19 | ED Physician Documentation ---
PD HPI CHEST PAIN - Stated complaint Stated Complaint: CHEST/BACK PX - Chief complaint Chief Complaint: Fever - History obtained from History obtained from: Patient - History of Present Illness Timing - onset: Other (48-year-old gentleman with history of known coronary disease, followed at [facility]. He had back surgery 2 weeks ago. He is been feeling generally poorly with some chills for the last couple of days, but no measured fevers. He has had substernal nonradiating chest pain since this morning which is severe and similar to prior angina. He is mildly short of breath with it. Denies cough or abdominal pain. No nausea.) Review of Systems Ten Systems: 10 systems reviewed and negative Constitutional: reports: Chills, Fatigue. denies: Fever Nose: denies: Rhinorrhea / runny nose, Congestion GI: denies: Abdominal Pain, Nausea, Vomiting : denies: Dysuria, Frequency PD PAST MEDICAL HISTORY - Past Medical History Cardiovascular: Hypertension, High cholesterol, Coronary artery disease, Angina Respiratory: None Neuro: None Endocrine/Autoimmune: Type 2 diabetes GI: None : None HEENT: None Psych: Depression, Anxiety, ADD/ADHD Musculoskeletal: Chronic back pain Derm: None - Past Surgical History Past Surgical History: Yes Ortho: Spine surgery Cardiovascular: Cardiac catheterization - Present Medications Home Medications: Ambulatory Orders Medication Instructions Recorded Confirmed Gabapentin 900 mg PO TID 09/02/17 10/18/18 metFORMIN [Glucophage] 500 mg PO BIDWM 09/02/17 10/18/18 Metoprolol Succinate 50 mg PO DAILY 01/04/18 10/18/18 cloNIDine [Catapres] 0.1 mg PO BID 01/04/18 10/18/18 Albuterol Sulf [Ventolin Hfa 1 - 2 puffs INH Q4HR PRN #1 inhaler 01/10/18 10/18/18 Inhaler] Sertraline HCl [Zoloft] 200 mg PO DAILY 02/02/18 10/18/18 Aspirin Chewable [St Oneil 81 mg PO DAILY #15 tablet 02/03/18 10/18/18 Aspirin] Nitroglycerin [Nitrostat] 0.4 mg SL Q5MIN PRN #30 tablet 02/03/18 10/18/18 amLODIPine [Norvasc] 11/07/18 - Allergies Allergies/Adverse Reactions: Allergies Allergy/AdvReac Type Severity Reaction Status Date / Time droperidol AdvReac Unknown Verified 11/07/18 11:45 - Social History Does the pt smoke?: No Smoking Status: Never smoker Does the pt drink ETOH?: Yes Does the pt have substance abuse?: No - Family History Family history: reports: Non contributory - Immunizations Immunizations are current?: Yes - POLST Patient has POLST: No POLST Status: Full Code PD ED PE NORMAL - Vitals Vital signs reviewed: Yes - General General: Alert and oriented X 3, Other (Appears uncomfortable) - HEENT HEENT: PERRL, EOMI - Neck Neck: Supple, no meningeal sign, No bony TTP - Cardiac Cardiac: Other (Tachycardic, regular without murmur) - Respiratory Respiratory: No respiratory distress, Clear bilaterally - Abdomen Abdomen: Soft, Non tender - Back Back: Other (Lumbar spinal incisions on either side look fine without evidence of infection or complication) - Derm Derm: Normal color, Warm and dry - Extremities Extremities: No edema, No calf tenderness / cord - Neuro Neuro: Alert and oriented X 3, Normal speech - Psych Psych: Normal mood, Normal affect Results - Vitals Vitals: Vital Signs - 24 hr 11/07/18 11/07/18 11/07/18 11:09 12:38 12:55 Temperature 36.3 C L 37.1 C Heart Rate 119 H 106 H 86 Respiratory 18 15 19 Rate Blood Pressure 172/104 H 154/97 H 137/92 H O2 Saturation 98 97 96 11/07/18 11/07/18 13:13 14:14 Temperature Heart Rate 98 96 Respiratory 18 16 Rate Blood Pressure 137/91 H 146/97 H O2 Saturation 98 97 Oxygen O2 Source Room air - EKG (time done) 1109 Rate: Rate (enter#) (116) Rhythm: Sinus tachycardia [place]: Normal Intervals: Normal [place] Ischemia: ST depression (Lateral ST depression is new compared to the last EKG in the chart dated October 18 of this year, but similar to that of September 24. No ST elevation.) Computer interpretation: Agree with computer - Labs Labs: Laboratory Tests 11/07/18 11/07/18 11/07/18 11:35 11:35 11:35 WBC 6.1 RBC 4.86 Hgb 14.5 Hct 44.2 MCV 90.8 MCH 29.7 MCHC 32.7 RDW 13.6 Plt Count 241 MPV 7.0 L Neut # (Auto) 4.2 Lymph # (Auto) 1.1 L [place] # (Auto) 0.4 Eos # (Auto) 0.3 Baso # (Auto) 0.0 Absolute Nucleated RBC 0.00 Nucleated RBC % 0.1 Sodium 134 L Potassium 4.2 Chloride 96 L Carbon Dioxide 24 Anion Gap 14.0 H BUN 16 Creatinine 0.9 Estimated GFR (MDRD) 89 Glucose 152 H Calcium 9.6 Total Bilirubin 0.6 AST 43 H ALT 38 Alkaline Phosphatase 103 Troponin I < 0.04 Total Protein 7.6 Albumin 4.0 Globulin 3.6 Albumin/Globulin Ratio 1.1 Lipase 23 11/07/18 13:58 WBC RBC Hgb Hct MCV MCH MCHC RDW Plt Count MPV Neut # (Auto) Lymph # (Auto) [place] # (Auto) Eos # (Auto) Baso # (Auto) Absolute Nucleated RBC Nucleated RBC % Sodium Potassium Chloride Carbon Dioxide Anion Gap BUN Creatinine Estimated GFR (MDRD) Glucose Calcium Total Bilirubin AST ALT Alkaline Phosphatase Troponin I < 0.04 Total Protein Albumin Globulin Albumin/Globulin Ratio Lipase - Rads (name of study) ct pa Radiology: EMP read contemporaneously (NEG) PD MEDICAL DECISION MAKING - ED course ED course: 48yo Gentleman with known on in her amenable coronary disease presents with presumed unstable angina with ST depressions laterally. After my evaluation I called his bottom hoop driver, Dr. Tran at [facility] and discussed the case. He says these ST depressions are frequently seen with this patient and should not prompt transfer necessarily, recommends rule out in the emergency department. I will also do a PE protocol scan given the tachycardia and the fact that he had back surgery about 2 weeks ago. 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 In the interim, return anytime if worse or if new symptoms develop.
--- NOTE | 2018-11-07 13:02 | XRAY Report ---
Reason: chest pain Procedure Date: 11/07/2018 Accession Number: [id number] / [id number] Procedure: XR - Chest 1 View X-Ray CPT Code: 52520 FULL RESULT: EXAM: CHEST RADIOGRAPHY EXAM DATE: 11/07/2018 12:31 PM. CLINICAL HISTORY: Coronary artery disease. Substernal nonradiating chest pain. COMPARISON: CHEST 1 VIEW 10/18/2018 9:41 AM. TECHNIQUE: 1 view. FINDINGS: Lungs/Pleura: No focal opacities evident. No pleural effusion. No pneumothorax. Mediastinum: Heart size is normal. Aorta is mildly tortuous. Other: Changes again seen from inferior cervical fusion. IMPRESSION: 1. No acute disease in the chest. RADIA
--- NOTE | 2018-11-07 14:05 | CT Report ---
Reason: PE protocol, chest pain Procedure Date: 11/07/2018 Accession Number: [id number] / [id number] Procedure: CT - ANGIO CHEST W/WO CPT Code: FULL RESULT: EXAM: CT ANGIOGRAM CHEST EXAM DATE: 11/07/2018 01:46 PM. CLINICAL HISTORY: Chest pain. COMPARISON: CHEST ANGIO 02/02/2018 9:22 AM. TECHNIQUE: Routine helical imaging was performed through the chest in the pulmonary arterial phase. IV Contrast: OPTI 320 80 ML. Reconstructions: Coronal 3-D MIP reconstructions.Sagittal and coronal. In accordance with CT protocol optimization, one or more of the following dose reduction techniques were utilized for this exam: automated exposure control, adjustment of mA and/or KV based on patient size, or use of iterative reconstructive technique. FINDINGS: Pulmonary Arteries: Diagnostic quality: Adequate through the segmental arteries. No evidence for acute or chronic pulmonary emboli. RV/LV is within normal limits. There is no interventricular septal bowing. There is no reflux of contrast material in the IVC. Lungs/Pleura: No consolidation, nodules, or edema. No effusions or pneumothorax. Mediastinum: Normal. No cardiac enlargement or adenopathy. Thoracic Aorta: Unremarkable. Upper Abdomen: Unremarkable. Other: None. IMPRESSION: Normal pulmonary CT angiogram. No pulmonary emboli. RADIA
[2018-11-07] MEDS ORDERED: MORPHINE 2 MG/ML SYRINGE IVP STA (14:09)
[2018-11-07] MEDS ORDERED: HYDROmorphone 1 MG/ML CARPUJECT IVP STA ×2 (14:40→15:19)
[2018-11-07 15:38] VITALS: BP 126/84
== END 2018-11-07 16:10 | disposition home or self-care (01) ==
LOC: ED 11:03
DX: I25.110 Atherosclerotic heart disease of native coronary artery with unstable angina pectoris (principal); I10 Essential (primary) hypertension; Z98.61 Coronary angioplasty status; R00.0 Tachycardia, unspecified; R94.31 Abnormal electrocardiogram [ECG] [EKG]; E11.9 Type 2 diabetes mellitus without complications; Z79.84 Long term (current) use of oral hypoglycemic drugs; Z79.82 Long term (current) use of aspirin
CPT/HCPCS: 36415; 71045; 71275; 80053; 83690; 84484; 85025; 93005; 96365; 96366; 96375; 96376; 99284; A9270; J1170; J2270; Q9967

== ENCOUNTER 2018-11-12 20:18 | Outpatient (CLI) | payer OTHER, MEDICAID | END 2018-11-12 20:19 | disposition short-term general hospital (02) | LOC: EMS 20:18 | PROVIDERS: ATTEND Surgery | DX: R07.9 Chest pain, unspecified (principal) | CPT/HCPCS: A0425; A0427 ==

== ENCOUNTER 2018-11-14 17:09 | Emergency (ER) | payer OTHER, MEDICAID ==
[2018-11-14 17:41] LABS: BASOPHILS # (AUTO) 0.1 10^3/uL (0.0-0.1); EOSINOPHILS # (AUTO) 0.3 10^3/uL (0.0-0.7); EOSINOPHILS % (AUTO) 4.2 %; HGB - HEMOGLOBIN 13.2 g/dL (14.0-18.0); LYMPHOCYTES # (AUTO) 1.2 10^3/uL (1.5-3.5); LYMPHOCYTES % (AUTO) 18.8 %; MEAN CORPUSCULAR HEMOGLOBIN 29.7 pg (27.0-31.0); MEAN CORPUSCULAR HGB CONC 33.6 g/dL (32.0-36.0); MEAN CORPUSCULAR VOLUME 88.6 fL (80.0-94.0); MEAN PLATELET VOLUME 7.5 fL (7.4-11.4); MONOCYTES # (AUTO) 0.4 10^3/uL (0.0-1.0); MONOCYTES % (AUTO) 6.1 %; NEUTROPHILS # (AUTO) 4.5 10^3/uL (1.5-6.6); NEUTROPHILS % (AUTO) 69.9 %; PLT - PLATELET COUNT 227 10^3/uL (130-450); RED BLOOD COUNT 4.44 10^6/uL (4.70-6.10); WHITE BLOOD COUNT 6.5 x10^3/uL (4.8-10.8)
[2018-11-14] MEDS ORDERED: MORPHINE 2 MG/ML SYRINGE IVP STA ×3 (17:42→18:57)
--- NOTE | 2018-11-14 17:53 | ED Physician Documentation ---
PD HPI CHEST PAIN - Stated complaint Stated Complaint: CP - Chief complaint Chief Complaint: Cardiac - History obtained from History obtained from: Patient - History of Present Illness Timing - onset: Today (48-year-old gentleman with known nonocclusive but also distal and non-intervenable coronary disease. See previous notes. Developed substernal chest pressure at 1:30 PM today while watching TV. Similar to prior episodes. Nitroglycerin and aspirin at home weren't effective.) Review of Systems Constitutional: reports: Reviewed and negative Cardiac: denies: Palpitations, Pedal edema, Calf pain Respiratory: denies: Dyspnea, Cough PD PAST MEDICAL HISTORY - Past Medical History Past Medical History: No Cardiovascular: Hypertension, High cholesterol, Coronary artery disease, Angina Respiratory: None Neuro: None Endocrine/Autoimmune: Type 2 diabetes GI: None : None HEENT: None Psych: Depression, Anxiety, ADD/ADHD Musculoskeletal: Chronic back pain Derm: None - Past Surgical History Past Surgical History: Yes Ortho: Spine surgery Cardiovascular: Cardiac catheterization - Present Medications Home Medications: Ambulatory Orders Medication Instructions Recorded Confirmed RX: Gabapentin 900 mg PO TID 09/02/17 10/18/18 RX: metFORMIN [Glucophage] 500 mg PO BIDWM 09/02/17 10/18/18 RX: Metoprolol Succinate 50 mg PO DAILY 01/04/18 10/18/18 RX: cloNIDine [Catapres] 0.1 mg PO BID 01/04/18 10/18/18 RX: Albuterol Sulf [Ventolin Hfa 1 - 2 puffs INH Q4HR PRN #1 inhaler 01/10/18 10/18/18 Inhaler] RX: Sertraline HCl [Zoloft] 200 mg PO DAILY 02/02/18 10/18/18 RX: Aspirin Chewable [St Oneil 81 mg PO DAILY #15 tablet 02/03/18 10/18/18 Aspirin] RX: Nitroglycerin [Nitrostat] 0.4 mg SL Q5MIN PRN #30 tablet 02/03/18 10/18/18 RX: amLODIPine [Norvasc] 11/07/18 - Allergies Allergies/Adverse Reactions: Allergies Allergy/AdvReac Type Severity Reaction Status Date / Time droperidol AdvReac Unknown Verified 11/14/18 17:16 - Social History Does the pt smoke?: Yes Smoking Status: Current every day smoker Does the pt drink ETOH?: Yes Does the pt have substance abuse?: No - Immunizations Immunizations are current?: Yes - POLST Patient has POLST: No POLST Status: Full Code PD ED PE NORMAL - Vitals Vital signs reviewed: Yes - General General: Alert and oriented X 3, No acute distress - Cardiac Cardiac: RRR, No murmur - Respiratory Respiratory: No respiratory distress, Clear bilaterally - Abdomen Abdomen: Non tender - Extremities Extremities: No edema, No calf tenderness / cord - Neuro Neuro: Alert and oriented X 3, Normal speech Results - Vitals Vitals: Vital Signs - 24 hr 11/14/18 11/14/18 11/14/18 17:14 17:30 18:01 Temperature 37.2 C Heart Rate 93 90 Respiratory 20 18 Rate Blood Pressure 148/79 H 130/70 Blood Pressure 142/70 H [Left] O2 Saturation 97 97 11/14/18 11/14/18 19:07 19:55 Temperature Heart Rate 89 85 Respiratory 17 16 Rate Blood Pressure 130/70 130/70 Blood Pressure [Left] O2 Saturation 98 97 Oxygen O2 Source Room air - EKG (time done) 1716 Rate: Rate (enter#) (89) Rhythm: NSR [place]: Normal Intervals: Normal [place] QRS: Normal Ischemia: Normal ST segments Compare to prior EKG: Changed from prior EKG (The last time he was here he had some lateral ST Depression which is mostly resolved today.) - Labs Labs: Laboratory Tests 11/14/18 11/14/18 11/14/18 17:30 17:30 17:30 WBC 6.5 RBC 4.44 L Hgb 13.2 L Hct 39.3 L MCV 88.6 MCH 29.7 MCHC 33.6 RDW 13.0 Plt Count 227 MPV 7.5 Neut # (Auto) 4.5 Lymph # (Auto) 1.2 L [place] # (Auto) 0.4 Eos # (Auto) 0.3 Baso # (Auto) 0.1 Absolute Nucleated RBC 0.00 Nucleated RBC % 0.1 Sodium 132 L Potassium 3.8 Chloride 94 L Carbon Dioxide 25 Anion Gap 13.0 BUN 20 Creatinine 1.1 Estimated GFR (MDRD) 71 L Glucose 221 H Calcium 9.0 Total Bilirubin 0.4 AST 33 ALT 34 Alkaline Phosphatase 84 Total Creatine Kinase 71 CK-MB (CK-2) 1.2 Troponin I < 0.04 Total Protein 7.2 Albumin 3.8 Globulin 3.4 Albumin/Globulin Ratio 1.1 Lipase 33 PD MEDICAL DECISION MAKING - ED course ED course: 48-year-old gentleman with recurrent rest angina. See previous notes. Cardiology is medically managing him. He is not really a candidate for further interventions. He was given morphine here given the ineffective nature of nitrates at home. There was some concern on previous visits for drug-seeking behavior. But he also has renal disease. His EKG is improved from the last with less ischemic changes. He was counseled to quit smoking, we discussed the vasospastic nature of nicotine and how this may be contributing. Departure - Departure Disposition: 01 Home, Self Care Clinical Impression: Chest pain Condition: Good Record reviewed to determine appropriate education?: Yes Instructions: ED Chest Pain Atypical Unkn Cause Comments: As discussed, it is imperative to stop smoking for the reasons we outlined today. If you have questions about that you can contact me at . Also you can talk with your doctor about a referral to our pulmonary rehab clinic in the hospital which does an excellent job with smoking cessation. Discharge Date/Time: 11/14/18 19:59
[2018-11-14 17:57] LABS: ALBUMIN 3.8 g/dL (3.2-5.5); ALBUMIN/GLOBULIN RATIO 1.1 (1.0-2.2); BILIRUBIN,TOTAL 0.4 mg/dL (0.2-1.0); CREATININE 1.1 mg/dL (0.6-1.2); TOTAL PROTEIN 7.2 g/dL (6.7-8.2)
[2018-11-14 18:01] LABS: TROPONIN I < 0.04 ng/mL (<0.49)
[2018-11-14 18:02] VITALS: BP 130/70
[2018-11-14 18:03] LABS: CREATINE KINASE MB 1.2 ng/mL (0.6-6.3)
[2018-11-14] MEDS ORDERED: oxyCODONE/ACET 5/325 Prepack 4 PO STA (19:41)
== END 2018-11-14 19:59 | disposition home or self-care (01) ==
LOC: ED 17:09
DX: R07.9 Chest pain, unspecified (principal); I10 Essential (primary) hypertension; I25.10 Atherosclerotic heart disease of native coronary artery without angina pectoris; E11.9 Type 2 diabetes mellitus without complications; Z79.84 Long term (current) use of oral hypoglycemic drugs; F17.200 Nicotine dependence, unspecified, uncomplicated
CPT/HCPCS: 36415; 80053; 82550; 82553; 83690; 84484; 85025; 93005; 96374; 96376; 99283; 99284; J2270

== ENCOUNTER 2018-11-16 08:00 | Emergency (ER) | payer OTHER, MEDICAID ==
[2018-11-16 08:38] VITALS: BP 129/87
[2018-11-16 09:11] LABS: BASOPHILS # (AUTO) 0.1 10^3/uL (0.0-0.1); BASOPHILS % (AUTO) 0.7 %; EOSINOPHILS # (AUTO) 0.2 10^3/uL (0.0-0.7); EOSINOPHILS % (AUTO) 1.7 %; HGB - HEMOGLOBIN 14.2 g/dL (14.0-18.0); LYMPHOCYTES # (AUTO) 1.9 10^3/uL (1.5-3.5); LYMPHOCYTES % (AUTO) 19.1 %; MEAN CORPUSCULAR HEMOGLOBIN 29.3 pg (27.0-31.0); MEAN CORPUSCULAR HGB CONC 33.2 g/dL (32.0-36.0); MEAN CORPUSCULAR VOLUME 88.4 fL (80.0-94.0); MEAN PLATELET VOLUME 7.9 fL (7.4-11.4); MONOCYTES # (AUTO) 0.8 10^3/uL (0.0-1.0); NEUTROPHILS # (AUTO) 6.8 10^3/uL (1.5-6.6); NEUTROPHILS % (AUTO) 70.5 %; PLT - PLATELET COUNT 285 10^3/uL (130-450); RED BLOOD COUNT 4.83 10^6/uL (4.70-6.10); WHITE BLOOD COUNT 9.7 x10^3/uL (4.8-10.8)
--- NOTE | 2018-11-16 09:21 | ED Physician Documentation ---
PD HPI CHEST PAIN - Stated complaint Stated Complaint: CHEST PAIN - Chief complaint Chief Complaint: Cardiac - History obtained from History obtained from: Patient - History of Present Illness Timing - onset: How many hours ago (2), Today Timing - onset during: Rest Timing - duration: Hours (2) Timing - details: Abrupt onset (had onset of chest pain, more quickly than he has had in the past. He did not try any NTG. Takes NTG for chest pains in the past and it has not really ever worked for him.), Still present (easing some; had not tried any meds.) Quality: Aching, Sharp, Pain Location: Substernal, Left chest Radiation: Left upper extremity (pectoral to axillary area). No: Jaw, Neck Associated symptoms: Nausea, Feeling faint / dizzy. No: Shortness of air, Diaphoresis, Palpitations, Cough Similar symptoms before: Diagnosis (has had Dx of CAD in the past. Has had frequent CP episodes in past months, and NTG has not really helped with the episodes. Has had Cardiology evaluations with the CP without findings other than small vessel disease and no stentable lesions.) Recently seen: Emergency Dept Review of Systems Constitutional: denies: Fever, Chills Nose: denies: Rhinorrhea / runny nose, Congestion Throat: denies: Sore throat Cardiac: reports: Chest pain / pressure. denies: Palpitations, Pedal edema, Calf pain Respiratory: denies: Dyspnea, Cough, Wheezing GI: denies: Abdominal Pain, Nausea, Vomiting, Diarrhea, Bloody / black stool Skin: denies: Rash Musculoskeletal: denies: Neck pain, Back pain Neurologic: denies: Focal weakness, Numbness Psychiatric: reports: Depressed PD PAST MEDICAL HISTORY - Past Medical History Cardiovascular: Hypertension, High cholesterol, Coronary artery disease, Angina Respiratory: None Neuro: None Endocrine/Autoimmune: Type 2 diabetes GI: None : None HEENT: None Psych: Depression, Anxiety, ADD/ADHD Musculoskeletal: Chronic back pain Derm: None - Past Surgical History Past Surgical History: Yes Ortho: Spine surgery Cardiovascular: Cardiac catheterization - Present Medications Home Medications: Ambulatory Orders Medication Instructions Recorded Confirmed Gabapentin 900 mg PO TID 09/02/17 10/18/18 metFORMIN [Glucophage] 500 mg PO BIDWM 09/02/17 10/18/18 Metoprolol Succinate 50 mg PO DAILY 01/04/18 10/18/18 cloNIDine [Catapres] 0.1 mg PO BID 01/04/18 10/18/18 Albuterol Sulf [Ventolin Hfa 1 - 2 puffs INH Q4HR PRN #1 inhaler 01/10/18 10/18/18 Inhaler] Sertraline HCl [Zoloft] 200 mg PO DAILY 02/02/18 10/18/18 Aspirin Chewable [St Oneil 81 mg PO DAILY #15 tablet 02/03/18 10/18/18 Aspirin] Nitroglycerin [Nitrostat] 0.4 mg SL Q5MIN PRN #30 tablet 02/03/18 10/18/18 amLODIPine [Norvasc] 11/07/18 - Allergies Allergies/Adverse Reactions: Allergies Allergy/AdvReac Type Severity Reaction Status Date / Time droperidol AdvReac Unknown Verified 11/16/18 08:38 - Social History Does the pt smoke?: Yes Smoking Status: Current every day smoker Does the pt drink ETOH?: Yes Does the pt have substance abuse?: No - Immunizations Immunizations are current?: Yes - POLST Patient has POLST: No POLST Status: Full Code PD ED PE NORMAL - Vitals Vital signs reviewed: Yes - General General: Alert and oriented X 3, No acute distress, Well developed/nourished - HEENT HEENT: Atraumatic, Pharynx benign - Neck Neck: Supple, no meningeal sign, No adenopathy - Cardiac Cardiac: RRR, No murmur - Respiratory Respiratory: Clear bilaterally, Other (mild chestwall tenderness at lower left sternal border. ) - Abdomen Abdomen: Soft, Non tender - Back Back: No CVA TTP - Derm Derm: Normal color, Warm and dry - Neuro Neuro: Alert and oriented X 3, No motor deficit, Normal speech Results - Vitals Vitals: Vital Signs - 24 hr 11/16/18 08:37 Temperature 36 C L Heart Rate 75 Respiratory 23 Rate Blood Pressure 129/87 H O2 Saturation 99 Oxygen O2 Source Room air - EKG (time done) 08:08 Rate: Rate (enter#) (87) Rhythm: NSR [place]: Normal Intervals: Normal [place] QRS: Normal Ischemia: Normal ST segments. No: ST elevation c/w ischemia, ST depression Compare to prior EKG: Unchanged from prior EKG - Labs Labs: Laboratory Tests 11/16/18 11/16/18 11/16/18 08:30 08:30 08:30 WBC 9.7 RBC 4.83 Hgb 14.2 Hct 42.7 MCV 88.4 MCH 29.3 MCHC 33.2 RDW 13.0 Plt Count 285 MPV 7.9 Neut # (Auto) 6.8 H Lymph # (Auto) 1.9 [place] # (Auto) 0.8 Eos # (Auto) 0.2 Baso # (Auto) 0.1 Absolute Nucleated RBC 0.00 Nucleated RBC % 0.0 Sodium 134 L Potassium 3.8 Chloride 97 L Carbon Dioxide 23 Anion Gap 14.0 H BUN 15 Creatinine 1.0 Estimated GFR (MDRD) 79 L Glucose 153 H Calcium 9.8 Total Bilirubin 0.8 AST 27 ALT 30 Alkaline Phosphatase 85 Troponin I < 0.04 Total Protein 7.7 Albumin 4.3 Globulin 3.4 Albumin/Globulin Ratio 1.3 Lipase 25 PD MEDICAL DECISION MAKING - ED course Complexity details: considered differential (can check ECG and cardiag enzymfes), d/w patient Departure - Departure Disposition: 07 Against Medical Advice Clinical Impression: Chest pain Qualifiers: Chest pain type: precordial pain Qualified Code(s): R07.2 - Precordial pain Condition: Stable Record reviewed to determine appropriate education?: Yes Follow-Up: Mt Mitchell MD [Primary Care Provider] - Comments: Your EKG appears normal. That does not exclude heart problems. Take Tylenol as needed at home. We did offer you some pain medicine here. To really exclude a acute heart event such as a small heart attack, it would need you to remain here for a few more hours to have a repeat of the blood test called troponin. Return if persistent pain through the day. Follow-up with your primary care as needed. Discharge Date/Time: 11/16/18 09:55
[2018-11-16] MEDS ORDERED: KETOROLAC 30 MG/ML VIAL IVP STA (09:45)
[2018-11-16 09:46] LABS: ALBUMIN 4.3 g/dL (3.2-5.5); ALBUMIN/GLOBULIN RATIO 1.3 (1.0-2.2); BILIRUBIN,TOTAL 0.8 mg/dL (0.2-1.0); CALCIUM 9.8 mg/dL (8.5-10.3); TOTAL PROTEIN 7.7 g/dL (6.7-8.2)
== END 2018-11-16 09:55 | disposition left against medical advice (07) ==
LOC: ED 08:00
DX: R07.2 Precordial pain (principal); I25.10 Atherosclerotic heart disease of native coronary artery without angina pectoris; Z98.61 Coronary angioplasty status; I10 Essential (primary) hypertension; E11.9 Type 2 diabetes mellitus without complications; Z79.84 Long term (current) use of oral hypoglycemic drugs; Z79.82 Long term (current) use of aspirin; F17.200 Nicotine dependence, unspecified, uncomplicated
CPT/HCPCS: 36415; 80053; 83690; 84484; 85025; 93005; 99283; 99284

== ENCOUNTER 2018-12-05 11:36 | Emergency (ER) | payer OTHER, MEDICAID ==
[2018-12-05 11:43] VITALS: BP 159/96
--- NOTE | 2018-12-05 11:59 | ED Physician Documentation ---
PD HPI BACK PAIN - Stated complaint Stated Complaint: BACK/LEG PX - Chief complaint Chief Complaint: Back Pain - History obtained from History obtained from: Patient - History of Present Illness Timing - onset: Last night Timing - details: Gradual onset Location: Lower Quality: Sharp Associated symptoms: Numbness. No: Fever, Weakness, Incontinent of urine Improves with: Ice (Just momentarily), Nothing (No relief with his meloxicam and naproxen that he takes at home.) Worsened by: Movement Similar symptoms before: Diagnosis - Additional information Additional information: This is a 48-year-old man who had spinal surgery for fusion and bone marrow grafting 7 weeks ago. He has had a constant low-grade pain across his lower back since the surgery and then last night it shifted to the left side and he was getting shots of "electricity" down the left leg and now the whole left leg is numb and he has sharp pain in his left hip. He has to walk hunched over and limping because it so painful. 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 He did take naproxen this morning 500 mg about 2 hours ago it is done nothing to alleviate the pain is still a 9 out of 10. He is been doing his physical therapy stretches daily. Denies any dysuria or incontinence. Review of Systems Constitutional: denies: Fever GI: denies: Abdominal Pain : denies: Dysuria, Incontinent Skin: denies: Rash Musculoskeletal: reports: Back pain Neurologic: reports: Numbness. denies: Generalized weakness, Focal weakness PD PAST MEDICAL HISTORY - Past Medical History Cardiovascular: Hypertension, High cholesterol, Coronary artery disease, Angina Respiratory: None Neuro: None Endocrine/Autoimmune: Type 2 diabetes GI: None : None HEENT: None Psych: Depression, Anxiety, ADD/ADHD Musculoskeletal: Chronic back pain Derm: None - Past Surgical History Past Surgical History: Yes Ortho: Spine surgery Cardiovascular: Cardiac catheterization - Present Medications Home Medications: Ambulatory Orders Medication Instructions Recorded Confirmed Gabapentin 900 mg PO TID 09/02/17 10/18/18 metFORMIN [Glucophage] 500 mg PO BIDWM 09/02/17 10/18/18 Metoprolol Succinate 50 mg PO DAILY 01/04/18 10/18/18 cloNIDine [Catapres] 0.1 mg PO BID 01/04/18 10/18/18 Albuterol Sulf [Ventolin Hfa 1 - 2 puffs INH Q4HR PRN #1 inhaler 01/10/18 10/18/18 Inhaler] Sertraline HCl [Zoloft] 200 mg PO DAILY 02/02/18 10/18/18 Aspirin Chewable [St Oneil 81 mg PO DAILY #15 tablet 02/03/18 10/18/18 Aspirin] Nitroglycerin [Nitrostat] 0.4 mg SL Q5MIN PRN #30 tablet 02/03/18 10/18/18 amLODIPine [Norvasc] 11/07/18 Cyclobenzaprine [Flexeril] 10 mg PO TID PRN #20 tablet 12/05/18 - Allergies Allergies/Adverse Reactions: Allergies Allergy/AdvReac Type Severity Reaction Status Date / Time droperidol AdvReac Unknown Verified 12/05/18 11:43 - Social History Does the pt smoke?: Yes Smoking Status: Current every day smoker Does the pt drink ETOH?: Yes Does the pt have substance abuse?: No - Immunizations Immunizations are current?: Yes - POLST Patient has POLST: No POLST Status: Full Code PD ED PE NORMAL - Vitals Vital signs reviewed: Yes - General General: Alert and oriented X 3, No acute distress, Well developed/nourished - HEENT HEENT: Atraumatic - Cardiac Cardiac: RRR - Respiratory Respiratory: No respiratory distress - Back Back: Other (2 well-healed scars in the lower lumbar region either side of the midline. These appear to be healing well. He complains of some discomfort with palpation through that region.) - Derm Derm: No: No rash - Neuro Neuro: Alert and oriented X 3, chief development officer 2-12 intact, No motor deficit, No sensory deficit, Normal speech, Other (Could not elicit quadricep reflexes or Achilles but this was symmetrical bilaterally. He had a downgoing Babinski. Sensation is intact to light touch although he complains of diminished sensation along the lateral left lower leg compared to the medial aspect or to the right leg. Patient was able to ambulate tiptoe limping. He has 4 out of 5 strength to the ankle dorsiflexion on the left compared to the 5 out of 5 on the right. This appears to be secondary to pain. There is a negative crossed straight leg raise.) Results - Vitals Vitals: Vital Signs - 24 hr 12/05/18 11:41 Temperature 36.7 C Heart Rate 112 H Respiratory 18 Rate Blood Pressure 159/96 H O2 Saturation 96 Oxygen O2 Source Room air PD MEDICAL DECISION MAKING - ED course Complexity details: d/w patient ED course: This patient is well-known to the emergency department and has a GAY Report that indicates he should contact his primary care provider before presenting to the emergency department because he has been here multiple occasions this year alone. 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 I have encouraged him to make sure he reaches out to them prior to coming to the ER. Patient is already had an anti-inflammatory today so I did give him 1 hydrocodone 10 mg tablet here in the emergency department. He will need to have further narcotic prescriptions filled either from a primary care provider or his surgeon. In addition I have placed him on a muscle relaxer and instructed him not to drive or operate cristina taylor if taking that. He should contact primary care and surgery on Thursday. Departure - Departure Disposition: Home, Self Care Clinical Impression: Radicular low back pain Condition: Good Instructions: ED Chronic Pain Management Follow-Up: Mt Mitchell MD [Primary Care Provider] - Prescriptions: Cyclobenzaprine [Flexeril] 10 mg PO TID PRN #20 tablet PRN Reason: Spasms Comments: Home and rest today. Make sure that you are doing her daily physical therapy exercises as discussed with physical therapy. Ice can help alleviate some of the discomfort. You are given a prescription for muscle relaxer that you can use up to 3 times a day but do not drive or operate machinery if you are taking that medication. You [facility] your primary care provider and[facility] and for follow-up.
[2018-12-05] MEDS ORDERED: HYDROcod/ACETAM 10 MG/325 MG TABLET PO STA (12:34)
[2018-12-05] MEDS ORDERED: HYDROcod/ACETAM 10 MG/325 MG TABLET PO SCH (13:00)
== END 2018-12-05 12:38 | disposition home or self-care (01) ==
LOC: ED 11:36
DX: M54.16 Radiculopathy, lumbar region (principal); Z98.1 Arthrodesis status; I10 Essential (primary) hypertension; E11.9 Type 2 diabetes mellitus without complications; Z79.84 Long term (current) use of oral hypoglycemic drugs; Z79.82 Long term (current) use of aspirin; F17.200 Nicotine dependence, unspecified, uncomplicated
CPT/HCPCS: 99283; A9270

== ENCOUNTER 2019-05-20 07:55 | Emergency (ER) | payer MEDICAID, OTHER ==
[2019-05-20 08:14] VITALS: BP 182/97
[2019-05-20] MEDS ORDERED: HYDROcod/ACETAM 5/325 MG TABLET PO STA (09:26)
[2019-05-20] MEDS ORDERED: CYCLOBENZAPRINE 10 MG TABLET PO STA (09:26)
[2019-05-20] MEDS ORDERED: predniSONE 20 MG TABLET PO STA (09:26)
--- NOTE | 2019-05-20 09:28 | ED Physician Documentation ---
PD HPI BACK PAIN - Stated complaint Stated Complaint: BACK PX - Chief complaint Chief Complaint: Back Pain - History obtained from History obtained from: Patient - History of Present Illness Timing - onset: How many days ago (3) Timing - duration: Days (3) Timing - details: Gradual onset Pain level max: 8 Pain level now: 8 Location: Lower, Left Quality: Pain, Spasm, Similar to prior episodes Associated symptoms: No: Fever, Weakness, Numbness, Incontinent of urine, Unable to urinate, Hematuria, Incontinent of stool Improves with: Rest Worsened by: Movement - Additional information Additional information: 49-year-old male with a long history of chronic back pain, presents to the emergency department with left-sided back spasm radiating down the left leg. No loss of bowel or bladder control. No IV drug use. Did have a spinal fusion back in October. States his back is been doing well until a few days ago. Took ibuprofen without relief. No numbness or tingling. Review of Systems Ten Systems: 10 systems reviewed and negative Constitutional: denies: Fever, Chills Respiratory: denies: Cough GI: denies: Nausea, Vomiting, Diarrhea : denies: Dysuria, Frequency, Incontinent Skin: denies: Rash Musculoskeletal: denies: Neck pain Neurologic: denies: Focal weakness, Numbness PD PAST MEDICAL HISTORY - Past Medical History Cardiovascular: Hypertension, High cholesterol, Coronary artery disease, Angina Respiratory: None Neuro: None Endocrine/Autoimmune: Type 2 diabetes GI: None : None HEENT: None Psych: Depression, Anxiety, ADD/ADHD Musculoskeletal: Chronic back pain Derm: None - Past Surgical History Past Surgical History: Yes Ortho: Spine surgery Cardiovascular: Cardiac catheterization - Present Medications Home Medications: Ambulatory Orders Medication Instructions Recorded Confirmed Gabapentin 900 mg PO TID 09/02/17 10/18/18 metFORMIN [Glucophage] 500 mg PO BIDWM 09/02/17 10/18/18 Metoprolol Succinate 50 mg PO DAILY 01/04/18 10/18/18 cloNIDine [Catapres] 0.1 mg PO BID 01/04/18 10/18/18 Albuterol Sulf [Ventolin Hfa 1 - 2 puffs INH Q4HR PRN #1 inhaler 01/10/18 10/18/18 Inhaler] Sertraline HCl [Zoloft] 200 mg PO DAILY 02/02/18 10/18/18 Aspirin Chewable [St Oneil 81 mg PO DAILY #15 tablet 02/03/18 10/18/18 Aspirin] Nitroglycerin [Nitrostat] 0.4 mg SL Q5MIN PRN #30 tablet 02/03/18 10/18/18 amLODIPine [Norvasc] 11/07/18 Cyclobenzaprine [Flexeril] 10 mg PO TID PRN #20 tablet 12/05/18 Cyclobenzaprine [Flexeril] 10 mg PO TID PRN #20 tablet 05/20/19 Hydrocodone/Acetaminophen 1 - 2 each PO Q6H PRN #14 tablet 05/20/19 [Hydrocodon-Acetaminophen 5-325] predniSONE [Deltasone] 10 mg PO [id number] #42 tab 05/20/19 - Allergies Allergies/Adverse Reactions: Allergies Allergy/AdvReac Type Severity Reaction Status Date / Time droperidol AdvReac Unknown Verified 05/20/19 08:05 - Social History Does the pt smoke?: Yes Smoking Status: Current every day smoker Does the pt drink ETOH?: Yes Does the pt have substance abuse?: No - Immunizations Immunizations are current?: Yes - POLST Patient has POLST: No POLST Status: Full Code PD ED PE NORMAL - Vitals Vital signs reviewed: Yes - General General: Alert and oriented X 3, No acute distress, Well developed/nourished - HEENT HEENT: PERRL, Moist mucous membranes - Neck Neck: Supple, no meningeal sign - Cardiac Cardiac: RRR, No murmur, Strong equal pulses - Respiratory Respiratory: No respiratory distress, Clear bilaterally - Abdomen Abdomen: Soft, Non tender, Non distended - Back Back: No spinal TTP, Other (No midline tenderness to palpation. There is paraspinal spasm left low lumbar. Surgical incisions are well-healed. No signs of infection) - Derm Derm: Warm and dry - Extremities Extremities: Other (Normal bilateral lower extremity patellar and ankle jerk reflexes. Normal great toe extension bilaterally. no saddle anesthesia) - Neuro Neuro: Alert and oriented X 3, No motor deficit, No sensory deficit - Psych Psych: Normal mood, Normal affect Results - Vitals Vitals: Vital Signs - 24 hr 05/20/19 08:03 Temperature 36.7 C Heart Rate 105 H Respiratory 20 Rate Blood Pressure 182/97 H O2 Saturation 99 Oxygen O2 Source Room air PD MEDICAL DECISION MAKING - ED course Complexity details: reviewed old records, considered differential (No cauda equina, no spinal epidural abscess, no fracture, no aortic dissection or evidence of aneursym rupture), d/w patient ED course: Patient with what appears to be left-sided sciatica and spasm. Will place on pain medication and muscle relaxants for home. We will also place on a steroid taper. We will have him follow-up with his doctor for further care. No evidence of epidural abscess. No evidence of cauda equina. Patient counseled regarding signs and symptoms for which I believe and urgent re-evaluation would be necessary. Patient with good understanding of and agreement to plan and is comfortable going home at this time This document was made in part using voice recognition software. While efforts are made to proofread this document, sound alike and grammatical errors may occur. Departure - Departure Disposition: Home, Self Care Clinical Impression: Sciatica Qualifiers: Laterality: left Qualified Code(s): M54.32 - Sciatica, left side Condition: Good Instructions: ED Sciatica Follow-Up: Hadley Castro MD [Primary Care Provider] - Within 1 week Prescriptions: Cyclobenzaprine [Flexeril] 10 mg PO TID PRN #20 tablet PRN Reason: Spasms Hydrocodone/Acetaminophen [Hydrocodon-Acetaminophen 5-325] 1 - 2 each PO Q6H PRN #14 tablet PRN Reason: pain predniSONE [Deltasone] 10 mg PO [id number] #42 tab Comments: Use the medications as prescribed. Return if you worsen. Follow-up with your doctor for further care. Do not drink alcohol or drive while on narcotic pain medicine. Note that many narcotic pain relievers also contain tylenol/acetaminophen. Please ensure that your total dose of acetaminophen from all sources does not exceed 3 grams (3000mg) per day. You may constipated on this medication, take a stool softener such as "Colace" twice a day while you are on it. Also recommend a [id number] laxative such as senna or MiraLAX any day that you do not have a bowel movement. If you received narcotic pain medication in the emergency department, do not drive or operate machinery for the next 24 hours.
== END 2019-05-20 09:40 | disposition home or self-care (01) ==
LOC: ED 07:55
DX: M54.42 Lumbago with sciatica, left side (principal); M62.830 Muscle spasm of back; Z98.1 Arthrodesis status; I10 Essential (primary) hypertension; E11.9 Type 2 diabetes mellitus without complications; Z79.84 Long term (current) use of oral hypoglycemic drugs; Z79.82 Long term (current) use of aspirin; F17.200 Nicotine dependence, unspecified, uncomplicated
CPT/HCPCS: 99283; 99284; A9270; J7512

== ENCOUNTER 2019-06-10 18:55 | Emergency (ER) | payer MEDICAID, OTHER ==
[2019-06-10] MEDS ORDERED: BUFFERED LIDOCAINE 10 ML SYRINGE SUBQ STA (19:39)
[2019-06-10] MEDS ORDERED: TETANUS/DIPHTHERIA/PERTUSSIS 0.5 ML SYRINGE IM ONE (19:39)
--- NOTE | 2019-06-10 19:40 | ED Physician Documentation ---
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 No other injuries. Tetanus is not up-to-date it was 11 years ago.) Review of Systems Constitutional: reports: Reviewed and negative Cardiac: reports: Reviewed and negative Respiratory: reports: Reviewed and negative PD PAST MEDICAL HISTORY - Past Medical History Past Medical History: Yes Cardiovascular: Hypertension, High cholesterol, Coronary artery disease, Angina Respiratory: None Neuro: None Endocrine/Autoimmune: Type 2 diabetes GI: None : None HEENT: None Psych: Depression, Anxiety, ADD/ADHD Musculoskeletal: Chronic back pain Derm: None - Past Surgical History Past Surgical History: Yes Ortho: Spine surgery Cardiovascular: Cardiac catheterization - Present Medications Home Medications: Ambulatory Orders Medication Instructions Recorded Confirmed metFORMIN [Glucophage] 500 mg PO BIDWM 09/02/17 06/10/19 Metoprolol Succinate 50 mg PO DAILY 01/04/18 06/10/19 Albuterol Sulf [Ventolin Hfa 1 - 2 puffs INH Q4HR PRN #1 inhaler 01/10/18 06/10/19 Inhaler] Aspirin Chewable [St Oneil 81 mg PO DAILY #15 tablet 02/03/18 06/10/19 Aspirin] Mirtazapine [Remeron] 1 tab PO QPM 06/10/19 06/10/19 carvediloL [Carvedilol] 1 tab PO BID 06/10/19 06/10/19 - Allergies Allergies/Adverse Reactions: Allergies Allergy/AdvReac Type Severity Reaction Status Date / Time droperidol AdvReac Unknown Verified 06/10/19 19:13 - Social History Does the pt smoke?: Yes Smoking Status: Current every day smoker Does the pt drink ETOH?: Yes Does the pt have substance abuse?: No - Immunizations Immunizations are current?: Yes - POLST Patient has POLST: No POLST Status: Full Code PD ED PE NORMAL - Vitals Vital signs reviewed: Yes - General General: Alert and oriented X 3, No acute distress - Extremities Extremities: Other (On initial evaluation there is clearly a laceration of the pulp of the left pinky but it is covered in quick clot and I cannot really remove it due to pain on initial evaluation. His sensation is normal. But we will have to numb him up before any more evaluation of the wound is done.) - Neuro Neuro: Alert and oriented X 3, Normal speech Results - Vitals Vitals: Vital Signs - 24 hr 06/10/19 19:13 Temperature 37.3 C Heart Rate 107 H Respiratory 16 Rate Blood Pressure 150/100 H O2 Saturation 98 Oxygen O2 Source Room air Procedures - Laceration (location) R 5th finger Length in cm: 1 Wound type: Linear, Other (1 cm left duration of the pulp without distal neurovascular compromise that I was able to visualize after digital block with buffered lidocaine) Neurovascular status: Sensory intact, Motor intact, Vascular intact Wound Preparation: Irrigated copiously NS, Debrided extensively (We had to remove the quick clot and scrub it off.) Skin layer closure: Nylon, Interrupted, Size #-0 - enter number (5-0), Sutures - enter # (2) Other: Tetanus booster given Complexity: Simple Departure - Departure Disposition: 01 Home, Self Care Clinical Impression: Laceration Condition: Good Record reviewed to determine appropriate education?: Yes Instructions: ED Laceration Hand Comments: Come back for any signs of infection which would include: Redness, swelling, drainage, increased pain, or fevers. You can wash it soap and water. Keep it covered and moist with bacitracin ointment which is available over the counter; avoid neosporin. Follow-up with your physician in 14 days for suture removal.
[2019-06-10] MEDS ORDERED: oxyCODONE/ACET 5/325 Prepack 4 PO STA (20:06)
[2019-06-10 21:42] VITALS: BP 138/90
== END 2019-06-10 20:20 | disposition home or self-care (01) ==
LOC: ED 18:55
DX: S61.216A Laceration without foreign body of right little finger without damage to nail, initial encounter (principal); W26.0XXA Contact with knife, initial encounter; Y93.G1 Activity, food preparation and clean up; Y92.511 Restaurant or cafe as the place of occurrence of the external cause; Y99.0 Civilian activity done for income or pay; I10 Essential (primary) hypertension; E11.9 Type 2 diabetes mellitus without complications; F17.200 Nicotine dependence, unspecified, uncomplicated
CPT/HCPCS: 12001; 90471

== ENCOUNTER 2019-06-24 11:37 | Emergency (ER) | payer MEDICAID ==
--- NOTE | 2019-06-24 12:30 | ED Physician Documentation ---
History of Present Illness - Stated complaint Stated Complaint: SUTURE REM - Chief complaint Chief Complaint: Wound - History obtained from History obtained from: Patient - History of Present Illness Timing: Today Pain level max: 0 Pain level now: 0 - Additonal information Additional information: 2 sutures to the right fifth digit, present for 2 weeks. No signs of infection. He is here to have them removed. Review of Systems Constitutional: denies: Fever Skin: denies: Rash PD PAST MEDICAL HISTORY - Past Medical History Cardiovascular: Hypertension, High cholesterol, Coronary artery disease, Angina Respiratory: None Neuro: None Endocrine/Autoimmune: Type 2 diabetes GI: None : None HEENT: None Psych: Depression, Anxiety, ADD/ADHD Musculoskeletal: Chronic back pain Derm: None - Past Surgical History Past Surgical History: Yes Ortho: Spine surgery Cardiovascular: Cardiac catheterization - Present Medications Home Medications: Ambulatory Orders Medication Instructions Recorded Confirmed metFORMIN [Glucophage] 500 mg PO BIDWM 09/02/17 06/10/19 Metoprolol Succinate 50 mg PO DAILY 01/04/18 06/10/19 Albuterol Sulf [Ventolin Hfa 1 - 2 puffs INH Q4HR PRN #1 inhaler 01/10/18 06/10/19 Inhaler] Aspirin Chewable [St Oneil 81 mg PO DAILY #15 tablet 02/03/18 06/10/19 Aspirin] Mirtazapine [Remeron] 1 tab PO QPM 06/10/19 06/10/19 carvediloL [Carvedilol] 1 tab PO BID 06/10/19 06/10/19 - Allergies Allergies/Adverse Reactions: Allergies Allergy/AdvReac Type Severity Reaction Status Date / Time droperidol AdvReac Unknown Verified 06/24/19 11:52 - Social History Does the pt smoke?: Yes Smoking Status: Current every day smoker Does the pt drink ETOH?: Yes Does the pt have substance abuse?: No - Immunizations Immunizations are current?: Yes - POLST Patient has POLST: No POLST Status: Full Code PD ED PE NORMAL - Vitals Vital signs reviewed: Yes - General General: Alert and oriented X 3, No acute distress - HEENT HEENT: Moist mucous membranes - Derm Derm: Warm and dry - Extremities Extremities: Other (R 5th digit - [address] no signs of infection.) - Neuro Neuro: Alert and oriented X 3 Results - Vitals Vitals: Oxygen O2 Source Room air PD MEDICAL DECISION MAKING - ED course Complexity details: considered differential, d/w patient ED course: sutures removed. no signs of infection. Departure - Departure Disposition: 01 Home, Self Care Clinical Impression: Visit for suture removal Condition: Good Instructions: ED Stap Removal No Complication Follow-Up: your,doctor as needed [Other] Comments: Return if you worsen. The sutures were removed today. Discharge Date/Time: 06/24/19 12:55
[2019-06-24 12:55] VITALS: BP 162/100
== END 2019-06-24 12:55 | disposition home or self-care (01) ==
LOC: ED 11:37
DX: S61.216D Laceration without foreign body of right little finger without damage to nail, subsequent encounter (principal); X58.XXXD Exposure to other specified factors, subsequent encounter; I10 Essential (primary) hypertension; E11.9 Type 2 diabetes mellitus without complications; Z79.4 Long term (current) use of insulin; Z79.82 Long term (current) use of aspirin; F17.200 Nicotine dependence, unspecified, uncomplicated
CPT/HCPCS: 99281

== ENCOUNTER 2019-07-15 14:53 | Emergency (ER) | payer MEDICAID ==
[2019-07-15] MEDS ORDERED: SUMAtriptan 6 MG/0.5 ML VIAL SUBQ STA (16:10)
--- NOTE | 2019-07-15 16:17 | ED Physician Documentation ---
PD HPI HEADACHE - Stated complaint Stated Complaint: HEADACHE AND DIZZINESS - Chief complaint Chief Complaint: Neuro - History obtained from History obtained from: Patient - History of Present Illness Timing - onset: How many hours ago (6) Timing - onset during: Rest Timing - duration: Hours (6) Timing - details: Gradual onset Pain level max: 7 Pain level now: 7 Location: Front Quality: Throbbing, Aching. No: Thunderclap Associated symptoms: Nausea. No: Fever, Stiff neck, Vomiting, Weakness, Numbness, Syncope, Seizure, Eye pain Improved by: Rest Worsened by: Light, Noise Contributing factors: No: Anticoagulated, Possible carbon monoxide, Hypertension, Recent illness, Trauma Similar symptoms before: Has not had sx before Recently seen: Not recently seen Review of Systems Constitutional: denies: Fever, Chills Eyes: reports: Photophobia. denies: Decreased vision Nose: denies: Rhinorrhea / runny nose, Congestion Throat: denies: Sore throat Cardiac: denies: Chest pain / pressure Respiratory: denies: Cough GI: denies: Abdominal Pain, Vomiting, Diarrhea Skin: denies: Rash Musculoskeletal: denies: Neck pain, Back pain Neurologic: denies: Focal weakness, Numbness, Seizure, Confused, Head injury, LOC PD PAST MEDICAL HISTORY - Past Medical History Past Medical History: Yes Cardiovascular: Hypertension, High cholesterol, Coronary artery disease, Angina Respiratory: None Neuro: Headaches Endocrine/Autoimmune: Type 2 diabetes GI: None : None HEENT: None Psych: Depression, Anxiety, ADD/ADHD Musculoskeletal: Chronic back pain Derm: None - Past Surgical History Past Surgical History: Yes Ortho: Spine surgery Cardiovascular: Cardiac catheterization - Present Medications Home Medications: Ambulatory Orders Medication Instructions Recorded Confirmed metFORMIN [Glucophage] 500 mg PO BIDWM 09/02/17 06/10/19 Metoprolol Succinate 50 mg PO DAILY 01/04/18 06/10/19 Albuterol Sulf [Ventolin Hfa 1 - 2 puffs INH Q4HR PRN #1 inhaler 01/10/1806/10 Inhaler] Aspirin Chewable [St Oneil 81 mg PO DAILY #15 tablet 02/03/18 06/10/19 Aspirin] Mirtazapine [Remeron] 1 tab PO QPM 06/10/19 06/10/19 carvediloL [Carvedilol] 1 tab PO BID 06/10/19 06/10/19 - Allergies Allergies/Adverse Reactions: Allergies Allergy/AdvReac Type Severity Reaction Status Date / Time droperidol AdvReac Unknown Verified 07/15/19 15:02 - Social History Does the pt smoke?: No Smoking Status: Former smoker Does the pt drink ETOH?: Yes Does the pt have substance abuse?: No - Immunizations Immunizations are current?: Yes - POLST Patient has POLST: No POLST Status: Full Code PD ED PE NORMAL - Vitals Vital signs reviewed: Yes - General General: Alert and oriented X 3, No acute distress, Well developed/nourished - HEENT HEENT: Atraumatic, PERRL, Ears normal, Moist mucous membranes - Neck Neck: Supple, no meningeal sign, No bony TTP - Cardiac Cardiac: RRR, Strong equal pulses - Respiratory Respiratory: No respiratory distress, Clear bilaterally - Abdomen Abdomen: Soft, Non tender, Non distended - Back Back: No spinal TTP - Derm Derm: Warm and dry - Extremities Extremities: No edema - Neuro Neuro: Alert and oriented X 3, novelty dipper 2-12 intact, No motor deficit, No sensory deficit, Normal speech Eye Opening: Spontaneous Motor: Obeys Commands Verbal: Oriented GCS Score: 15 - Psych Psych: Normal mood, Normal affect - Free text exam Free text exam: NIHSS 0 @ 1608 Results - Vitals Vitals: Vital Signs - 24 hr 07/15/19 07/15/19 07/15/19 15:02 17:00 18:36 Temperature 36.8 C Heart Rate 81 82 75 Respiratory 14 14 10 L Rate Blood Pressure 156/93 H 147/91 H 122/86 H O2 Saturation 97 97 97 Oxygen O2 Source Room air - EKG (time done) 1508 Rate: Rate (enter#) (85) Rhythm: NSR [place]: Normal Intervals: Normal MS QRS: Normal Ischemia: Normal ST segments - Labs Labs: Laboratory Tests 07/15/19 07/15/19 16:21 16:21 WBC 7.3 RBC 5.19 Hgb 15.2 Hct 46.3 MCV 89.2 MCH 29.3 MCHC 32.8 RDW 12.5 Plt Count 207 MPV 9.2 Neut # (Auto) 5.0 Lymph # (Auto) 1.4 L [place] # (Auto) 0.5 Eos # (Auto) 0.3 Baso # (Auto) 0.0 Absolute Nucleated RBC 0.00 Nucleated RBC % 0.0 Sodium 135 Potassium 3.7 Chloride 99 L Carbon Dioxide 28 Anion Gap 8.0 BUN 17 Creatinine 0.9 Estimated GFR (MDRD) 89 Glucose 149 H Calcium 9.1 Total Bilirubin 0.6 AST 24 ALT 21 Alkaline Phosphatase 52 Total Protein 7.2 Albumin 4.2 Globulin 3.0 Albumin/Globulin Ratio 1.4 Lipase 32 - Rads (name of study) angio head Radiology: Prelim report reviewed, EMP read contemporaneously, See rad report (Normal) PD MEDICAL DECISION MAKING - ED course Complexity details: reviewed results, re-evaluated patient, considered differen tial, d/w patient ED course: No acute findings on angio of the head. Headache improved after Toradol and Imitrex. No evidence of subarachnoid hemorrhage. No evidence of aneurysmal rupture. No neurological deficits. Patient counseled regarding signs and symptoms for which I believe and urgent re-evaluation would be necessary. Patient with good understanding of and agreement to plan and is comfortable going home at this time This document was made in part using voice recognition software. While efforts are made to proofread this document, sound alike and grammatical errors may occur. Departure - Departure Disposition: 01 Home, Self Care Clinical Impression: Headache Qualifiers: Headache type: unspecified Headache chronicity pattern: acute headache Intractability: not intractable Qualified Code(s): R51 - Headache Condition: Good Instructions: ED Cephalgia Unspecified Follow-Up: Mt Mitchell MD [Primary Care Provider] - Within 1 week Comments: Follow up with your doctor for further care. Return if you worsen. Go home and rest tonight. Discharge Date/Time: 07/15/19 18:54
[2019-07-15 16:24] LABS: BASOPHILS % (AUTO) 0.6 %; EOSINOPHILS # (AUTO) 0.3 10^3/uL (0.0-0.7); EOSINOPHILS % (AUTO) 3.7 %; HGB - HEMOGLOBIN 15.2 g/dL (14.0-18.0); LYMPHOCYTES # (AUTO) 1.4 10^3/uL (1.5-3.5); MEAN CORPUSCULAR HEMOGLOBIN 29.3 pg (27.0-31.0); MEAN CORPUSCULAR HGB CONC 32.8 g/dL (32.0-36.0); MEAN CORPUSCULAR VOLUME 89.2 fL (80.0-94.0); MEAN PLATELET VOLUME 9.2 fL (7.4-11.4); MONOCYTES # (AUTO) 0.5 10^3/uL (0.0-1.0); MONOCYTES % (AUTO) 7.4 %; PLT - PLATELET COUNT 207 10^3/uL (130-450); RED BLOOD COUNT 5.19 10^6/uL (4.70-6.10); RED CELL DISTRIBUTION WIDTH 12.5 % (12.0-15.0); WHITE BLOOD COUNT 7.3 x10^3/uL (4.8-10.8)
[2019-07-15] MEDS ORDERED: IOVERSOL 320 100 ML VIAL IVP ONE ×3 (16:25→17:19)
[2019-07-15 16:40] LABS: ALBUMIN 4.2 g/dL (3.2-5.5); ALBUMIN/GLOBULIN RATIO 1.4 (1.0-2.2); BILIRUBIN,TOTAL 0.6 mg/dL (0.2-1.0); CALCIUM 9.1 mg/dL (8.5-10.3); CREATININE 0.9 mg/dL (0.6-1.2); TOTAL PROTEIN 7.2 g/dL (6.7-8.2)
--- NOTE | 2019-07-15 17:53 | CT Report ---
Reason: headache Procedure Date: 07/15/2019 Accession Number: [id number] / [id number] Procedure: CT - ANGIO HEAD W/WO CPT Code: Final Report FULL RESULT: EXAM: CT ANGIOGRAM HEAD. CT SCAN OF THE HEAD WITHOUT AND WITH CONTRAST. EXAM DATE: 07/15/2019 05:14 PM CLINICAL HISTORY: 49-year-old male. Headache. Dizziness COMPARISON: CT head 09/07/2017 TECHNIQUE: - CT Scan Head: Using a multidetector scanner, axial images were acquired from the foramen magnum to the skull vertex prior to and following contrast administration. - CT Angiogram: Using a multidetector scanner, high-resolution axial images were acquired from the skull base through vertex following rapid infusion of intravenous contrast. Reformats: Multiplanar MIP reformats were reconstructed. NASCET criteria used for stenosis measurement. IV Contrast: 80 mL Optiray 320. In accordance with CT protocol optimization, one or more of the following dose reduction techniques were utilized for this exam: automated exposure control, adjustment of mA and/or KV based on patient size, or use of iterative reconstructive technique. FINDINGS: NON-CONTRAST HEAD: Parenchyma: No intraparenchymal hemorrhage. No evidence of mass, midline shift, or CT findings of infarction. Cohen-white differentiation is distinct. Extraaxial Spaces: Normal for age. No subdural or epidural collections identified. Ventricles: Normal in size and position. Sinuses and orbits: Imaged paranasal sinuses, orbits, and mastoids show no significant abnormality. Bones: No evidence of fracture or calvarial defect. Other: None. POST-CONTRAST HEAD: No abnormal enhancement. CT ANGIOGRAM HEAD: RIGHT: Internal Carotid artery: No evidence of dissection. No evidence of aneurysm along the intracranial ICA. Anterior Cerebral Artery: Patent without significant stenosis, aneurysm, or vascular malformation. Middle Cerebral Artery: Patent without significant stenosis, aneurysm, or vascular malformation. Posterior Cerebral Artery: Patent without significant stenosis, aneurysm, or vascular malformation. Posterior Communicating Artery: Patent. No aneurysm. Vertebral Artery: Patent without significant stenosis. No evidence of dissection. LEFT: Internal Carotid artery: No evidence of dissection. No evidence of aneurysm along the intracranial ICA. Anterior Cerebral Artery: Patent without significant stenosis, aneurysm, or vascular malformation. Middle Cerebral Artery: Patent without significant stenosis, aneurysm, or vascular malformation. Posterior Cerebral Artery: Patent without significant stenosis, aneurysm, or vascular malformation. Posterior Communicating Artery: Patent. No aneurysm. Vertebral Artery: Patent without significant stenosis. No evidence of dissection. CENTRAL: Anterior Communicating Artery: Patent. No aneurysm. Basilar Artery: Patent without significant stenosis. No aneurysm. DURAL VENOUS SINUSES AND MAJOR CENTRAL VEINS: Patent. IMPRESSION: CT Head: No acute intracranial abnormality. Specifically, no evidence of acute infarct, hemorrhage, or mass lesion. No abnormal enhancement. CTA Head: Normal CTA of the head. No significant vascular stenosis, dissection, or aneurysm. RADIA
[2019-07-15] MEDS ORDERED: KETOROLAC 30 MG/ML VIAL IVP STA (18:01)
[2019-07-15 18:37] VITALS: BP 122/86
== END 2019-07-15 18:54 | disposition home or self-care (01) ==
LOC: ED 14:53
DX: R51 Headache (principal); R42 Dizziness and giddiness; R11.0 Nausea; I10 Essential (primary) hypertension; E11.9 Type 2 diabetes mellitus without complications; Z79.84 Long term (current) use of oral hypoglycemic drugs; Z79.82 Long term (current) use of aspirin; Z87.891 Personal history of nicotine dependence
CPT/HCPCS: 36415; 70496; 80053; 83690; 85025; 93005; 96372; 96374; 99284; Q9967

== ENCOUNTER 2019-09-05 18:10 | Emergency (ER) | payer MEDICAID ==
--- NOTE | 2019-09-05 18:21 | ED Physician Documentation ---
PD HPI CHEST PAIN - Stated complaint Stated Complaint: CP - Chief complaint Chief Complaint: Cardiac - History obtained from History obtained from: Patient - History of Present Illness Timing - onset: How many hours ago (5), Today Timing - onset during: Rest Timing - duration: Hours (5) Timing - details: Abrupt onset Pain level max: 8 Pain level now: 8 Quality: Tightness Location: Substernal, Left chest Radiation: No: Jaw, Neck, Back, Abdominal, Left upper extremity, Right upper extremity Improved by: Nothing Worsened by: No: Exertion, Inspiration, Eating, Movement, Palpation, Position Associated symptoms: Nausea, General Weakness. No: Shortness of air, Diaphoresis, Vomiting, Feeling faint / dizzy, Palpitations, Cough Recently seen: Not recently seen - Additional information Additional information: [facility] had 2 angiograms last year. Sees Dr. Mccoy at [facility]. [facility] has disease that is not amenable to intervention. Pain has been constant since 1pm today. Review of Systems Constitutional: denies: Fever, Chills Nose: denies: Rhinorrhea / runny nose, Congestion Throat: denies: Sore throat Cardiac: denies: Pedal edema, Calf pain Respiratory: denies: Dyspnea, Cough, Wheezing GI: denies: Vomiting, Diarrhea Skin: denies: Rash Musculoskeletal: denies: Neck pain, Back pain Neurologic: denies: Headache PD PAST MEDICAL HISTORY - Past Medical History Cardiovascular: Hypertension, High cholesterol, Coronary artery disease, Angina Respiratory: None Neuro: Headaches Endocrine/Autoimmune: Type 2 diabetes GI: None : None HEENT: None Psych: Depression, Anxiety, ADD/ADHD Musculoskeletal: Chronic back pain Derm: None - Past Surgical History Past Surgical History: Yes Ortho: Spine surgery Cardiovascular: Cardiac catheterization - Present Medications Home Medications: Ambulatory Orders Medication Instructions Recorded Confirmed metFORMIN [Glucophage] 500 mg PO BIDWM 09/02/17 09/05/19 Metoprolol Succinate 50 mg PO DAILY 01/04/18 09/05/19 Albuterol Sulf [Ventolin Hfa 1 - 2 puffs INH Q4HR PRN #1 inhaler 01/10/18 09/05/19 Inhaler] Aspirin Chewable [St Oneil 81 mg PO DAILY #15 tablet 02/03/18 09/05/19 Aspirin] PARoxetine [Paxil] 10 mg DAILY 09/05/19 09/05/19 - Allergies Allergies/Adverse Reactions: Allergies Allergy/AdvReac Type Severity Reaction Status Date / Time droperidol AdvReac Unknown Verified 07/15/19 15:02 - Social History Does the pt smoke?: No Smoking Status: Former smoker Does the pt drink ETOH?: Yes Does the pt have substance abuse?: No - Immunizations Immunizations are current?: Yes - POLST Patient has POLST: No POLST Status: Full Code PD ED PE NORMAL - Vitals Vital signs reviewed: Yes - General General: Alert and oriented X 3, No acute distress, Well developed/nourished - HEENT HEENT: PERRL, Moist mucous membranes - Neck Neck: Supple, no meningeal sign - Cardiac Cardiac: RRR, No murmur, Strong equal pulses - Respiratory Respiratory: No respiratory distress, Clear bilaterally - Abdomen Abdomen: Soft, Non tender, Non distended - Derm Derm: Warm and dry - Extremities Extremities: No edema, No calf tenderness / cord - Neuro Neuro: Alert and oriented X 3 - Psych Psych: Normal mood, Normal affect Results - Vitals Vitals: Vital Signs - 24 hr 09/05/19 09/05/19 09/05/19 18:15 18:42 18:49 Temperature 37.2 C Heart Rate 90 90 99 Respiratory 16 24 20 Rate Blood Pressure 151/86 H 151/86 H 142/83 H O2 Saturation 98 98 99 09/05/19 09/05/19 09/05/19 19:04 19:15 19:22 Temperature Heart Rate 99 94 96 Respiratory 20 11 L 11 L Rate Blood Pressure 147/83 H 139/76 H 140/82 H O2 Saturation 97 97 95 09/05/19 20:13 Temperature Heart Rate 87 Respiratory 14 Rate Blood Pressure 150/82 H O2 Saturation 97 Oxygen O2 Source Room air - EKG (time done) 1813 Rate: Rate (enter#) (91) Rhythm: NSR [place]: Normal Intervals: Normal MS QRS: Normal Ischemia: Non specific changes Compare to prior EKG: Unchanged from prior EKG - Labs Labs: Laboratory Tests 09/05/19 09/05/19 09/05/19 18:34 18:34 18:34 WBC 6.3 RBC 5.14 Hgb 15.2 Hct 46.5 MCV 90.5 MCH 29.6 MCHC 32.7 RDW 12.6 Plt Count 187 MPV 9.5 Neut # (Auto) 4.3 Lymph # (Auto) 1.4 L Cl[place] # (Auto) 0.4 Eos # (Auto) 0.1 Baso # (Auto) 0.0 Absolute Nucleated RBC 0.00 Nucleated RBC % 0.0 Sodium 135 Potassium 3.4 L Chloride 99 L Carbon Dioxide 24 Anion Gap 12.0 BUN 15 Creatinine 1.0 Estimated GFR (MDRD) 79 L Glucose 204 H Calcium 9.3 Total Bilirubin 0.7 AST 23 ALT 19 Alkaline Phosphatase 47 Troponin I High Sens 3.0 Total Protein 7.2 Albumin 4.4 Globulin 2.8 Albumin/Globulin Ratio 1.6 Lipase 33 - Rads (name of study) cxr Radiology: Prelim report reviewed, EMP read contemporaneously, See rad report (No acute disease) PD MEDICAL DECISION MAKING - ED course Complexity details: reviewed old records, reviewed results, re-evaluated patient, considered differential (No ST elevation VT, no aortic dissection, no PE, no tension pneumothorax, no aortic aneurysm), d/w patient ED course: Negative high-sensitivity troponin after greater than 6 hours of constant chest pain. No acute EKG findings. Pain did not improve with nitroglycerin or Toradol. He was given 2 Vicodin and feels better. He will follow-up with his doctor for further care. No evidence of pulmonary embolus, pneumothorax, aortic dissection. No evidence of acute coronary syndrome. Patient counseled regarding signs and symptoms for which I believe and urgent re-evaluation would be necessary. Patient with good understanding of and agreement to plan and is comfortable going home at this time This document was made in part using voice recognition software. While efforts are made to proofread this document, sound alike and grammatical errors may occur. Multiple ED visits in the past for same. Two reportedly normal angiograms last year except for small on symptom all areas Departure - Departure Disposition: 01 Home, Self Care Clinical Impression: Chest pain Qualifiers: Chest pain type: unspecified Qualified Code(s): R07.9 - Chest pain, unspecified Condition: Good Instructions: ED Chest Pain Atypical Unkn Cause Follow-Up: Mt Mitchell MD [Primary Care Provider] - Within 3 Days Comments: The cause of your symptoms is unclear today. Please follow-up with your doctor for further care. Your heart tests are normal tonight Discharge Date/Time: 09/05/19 20:19
[2019-09-05] MEDS ORDERED: ASPIRIN CHEW 81 MG TABLET PO STA (18:43)
[2019-09-05 18:46] LABS: BASOPHILS % (AUTO) 0.5 %; EOSINOPHILS # (AUTO) 0.1 10^3/uL (0.0-0.7); EOSINOPHILS % (AUTO) 1.1 %; HGB - HEMOGLOBIN 15.2 g/dL (14.0-18.0); LYMPHOCYTES # (AUTO) 1.4 10^3/uL (1.5-3.5); LYMPHOCYTES % (AUTO) 22.8 %; MEAN CORPUSCULAR HEMOGLOBIN 29.6 pg (27.0-31.0); MEAN CORPUSCULAR HGB CONC 32.7 g/dL (32.0-36.0); MEAN CORPUSCULAR VOLUME 90.5 fL (80.0-94.0); MEAN PLATELET VOLUME 9.5 fL (7.4-11.4); MONOCYTES # (AUTO) 0.4 10^3/uL (0.0-1.0); MONOCYTES % (AUTO) 6.8 %; NEUTROPHILS # (AUTO) 4.3 10^3/uL (1.5-6.6); NEUTROPHILS % (AUTO) 68.5 %; PLT - PLATELET COUNT 187 10^3/uL (130-450); RED BLOOD COUNT 5.14 10^6/uL (4.70-6.10); RED CELL DISTRIBUTION WIDTH 12.6 % (12.0-15.0); WHITE BLOOD COUNT 6.3 x10^3/uL (4.8-10.8)
[2019-09-05] MEDS: NITROGLYCERIN SL 0.4 MG TABLET SL STA ×3 (18:48→19:15)
--- NOTE | 2019-09-05 18:49 | XRAY Report ---
Reason: Chest Pain Procedure Date: 09/05/2019 Accession Number: [id number] / [id number] Procedure: XR - Chest 1 View X-Ray CPT Code: 20697 Final Report FULL RESULT: EXAM: CHEST RADIOGRAPHY EXAM DATE: 09/05/2019 06:28 PM. CLINICAL HISTORY: Chest Pain. COMPARISON: CHEST 1 VIEW 11/07/2018 12:17 PM. TECHNIQUE: Upright AP view x2. FINDINGS: Lungs/Pleura: No focal opacities evident. No pleural effusion. No pneumothorax. Mediastinum: Within exam limitations, the cardiomediastinal contour is normal. Other: None. IMPRESSION: Normal single view chest. RADIA
[2019-09-05 19:04] LABS: ALBUMIN 4.4 g/dL (3.2-5.5); ALBUMIN/GLOBULIN RATIO 1.6 (1.0-2.2); BILIRUBIN,TOTAL 0.7 mg/dL (0.2-1.0); CALCIUM 9.3 mg/dL (8.5-10.3); TOTAL PROTEIN 7.2 g/dL (6.7-8.2)
[2019-09-05] MEDS ORDERED: KETOROLAC 30 MG/ML VIAL IVP STA (19:21)
[2019-09-05] MEDS ORDERED: HYDROcod/ACETAM 5/325 MG TABLET PO STA (20:10)
[2019-09-05 20:13] VITALS: BP 150/82
== END 2019-09-05 20:19 | disposition home or self-care (01) ==
LOC: ED 18:10
DX: R07.9 Chest pain, unspecified (principal); I10 Essential (primary) hypertension; E11.9 Type 2 diabetes mellitus without complications; Z79.84 Long term (current) use of oral hypoglycemic drugs; Z87.891 Personal history of nicotine dependence
CPT/HCPCS: 36415; 71045; 80053; 83690; 84484; 85025; 93005; 96374; 99284; A9270

== ENCOUNTER 2019-09-23 10:49 | Outpatient (CLI) | payer MEDICAID, BC ==
[2019-09-23 18:49] LABS: BUN - BLOOD UREA NITROGEN 15 mg/dL (6-20); CALCIUM 9.2 mg/dL (8.5-10.3); CARBON DIOXIDE - CO2 28 mmol/L (21-32); CHLORIDE 100 mmol/L (101-111); CHOL/HDL RATIO 5.4 (<5.0); CHOLESTEROL 268 mg/dL; CREATININE 0.9 mg/dL (0.6-1.2); GFR - MDRD 89 (>89); GLUCOSE 117 mg/dL (70-100); HDL CHOLESTEROL 50 mg/dL; LDL CHOLESTEROL,CALCULATED 171 mg/dL; LDL/HDL RATIO 3.4 (<3.6); SODIUM 136 mmol/L (135-145); VLDL CHOLESTEROL 47 mg/dL
[2019-09-23 18:54] LABS: HB2 TOTAL 16.8 g/dL; HEMOGLOBIN A1C 0.66 g/dL; HEMOGLOBIN A1C % 5.7 % (4.6-6.2)
== END 2019-09-23 23:59 | disposition home or self-care (01) ==
LOC: LAB.N 10:49
PROVIDERS: ATTEND Student in an Organized Health Care Education/Training Program
DX: E78.2 Mixed hyperlipidemia (principal); E55.9 Vitamin D deficiency, unspecified; I10 Essential (primary) hypertension; Z79.1 Long term (current) use of non-steroidal anti-inflammatories (NSAID); E11.9 Type 2 diabetes mellitus without complications; G62.9 Polyneuropathy, unspecified
CPT/HCPCS: 36415; 80048; 80061; 82306; 82607; 83036; 83721

== ENCOUNTER 2019-10-07 18:37 | Emergency (ER) | payer BC, MEDICAID ==
[2019-10-07 18:45] VITALS: BP 200/98
[2019-10-07] MEDS ORDERED: CYCLOBENZAPRINE 10 MG TABLET PO STA (18:55)
[2019-10-07] MEDS ORDERED: MELOXICAM 7.5 MG TABLET PO STA (18:55)
--- NOTE | 2019-10-07 18:58 | ED Physician Documentation ---
PD HPI BACK PAIN - Stated complaint Stated Complaint: LOWER BACK PX - Chief complaint Chief Complaint: Back Pain - History obtained from History obtained from: Patient - History of Present Illness Timing - onset: Other (49-year-old gentleman with chronic back pain, had some surgeries on his lumbar spine last year. Always has pain but is been worse over the last 4 days since picking up his dog. Pain in the low back and shoots down both legs. This shooting down both legs is not worse than it has been chronically but the pain in his back is. He denies new weakness, numbness, or tingling but always has some numbness on the bottom of both feet.) Review of Systems Constitutional: denies: Fever, Chills Cardiac: denies: Chest pain / pressure, Palpitations Respiratory: denies: Dyspnea, Cough Musculoskeletal: reports: Back pain PD PAST MEDICAL HISTORY - Past Medical History Cardiovascular: Hypertension, High cholesterol, Coronary artery disease, Angina Respiratory: None Neuro: Headaches Endocrine/Autoimmune: Type 2 diabetes GI: None : None HEENT: None Psych: Depression, Anxiety, ADD/ADHD Musculoskeletal: Chronic back pain Derm: None - Past Surgical History Past Surgical History: Yes Ortho: Spine surgery Cardiovascular: Cardiac catheterization - Present Medications Home Medications: Ambulatory Orders Medication Instructions Recorded Confirmed metFORMIN [Glucophage] 500 mg PO BIDWM 09/02/17 09/05/19 Metoprolol Succinate 50 mg PO DAILY 01/04/18 09/05/19 Albuterol Sulf [Ventolin Hfa 1 - 2 puffs INH Q4HR PRN #1 inhaler 01/10/18 09/05/19 Inhaler] Aspirin Chewable [St Oneil 81 mg PO DAILY #15 tablet 02/03/18 09/05/19 Aspirin] PARoxetine [Paxil] 10 mg DAILY 09/05/19 09/05/19 Cyclobenzaprine [Flexeril] 10 mg PO TID PRN #10 tablet 10/07/19 Meloxicam [Mobic] 7.5 mg PO BID PRN #10 tablet 10/07/19 - Allergies Allergies/Adverse Reactions: Allergies Allergy/AdvReac Type Severity Reaction Status Date / Time droperidol AdvReac Unknown Verified 10/07/19 18:45 - Social History Does the pt smoke?: No Smoking Status: Former smoker Does the pt drink ETOH?: Yes Does the pt have substance abuse?: No - Immunizations Immunizations are current?: Yes - POLST Patient has POLST: No POLST Status: Full Code PD ED PE NORMAL - Vitals Vital signs reviewed: Yes - General General: Alert and oriented X 3, No acute distress - Abdomen Abdomen: Normal bowel sounds, Soft, Non tender - Back Back: No spinal TTP, Other (Slightly diminished reflexes that are symmetric in the Achilles and patella. Sensation is normal throughout the lower extremities and his gait is normal.) - Extremities Extremities: No edema, No calf tenderness / cord - Neuro Neuro: Alert and oriented X 3, Normal speech Results - Vitals Vitals: Vital Signs - 24 hr 10/07/19 18:42 Temperature 36.8 C Heart Rate 117 H Respiratory 17 Rate Blood Pressure 200/98 H O2 Saturation 100 Oxygen O2 Source Room air PD MEDICAL DECISION MAKING - ED course ED course: This is a 49-year-old gentleman with chronic back pain. There is a significant concern for drug-seeking behavior, this is his 22nd emergency department visit in the last 12 months. I asked him when his last prescription for pain medications was, he said 3 months ago from his primary care physician. Review of the ED i.e. shows that so far this year he has had 2 other prescriptions for oxycodone from the emergency department and Carlitso Araujo. And in the last 12 months he has had 15 prescriptions for class II controlled substances. 11 unique prescribers. This is concerning for drug-seeking behavior especially in light of the fact that he was not forthcoming with me about when his last pre scription for oxycodone was. As such I discussed with him frankly that I am unwilling to prescribe narcotics for his chronic pain. Offered to increase his gabapentin which he said he would prefer a muscle relaxer and he was given a limited prescription for this. Departure - Departure Disposition: 01 Home, Self Care Clinical Impression: Chronic back pain Qualifiers: Back pain location: low back pain Back pain laterality: bilateral Sciatica presence: with sciatica Sciatica laterality: bilateral sciatica Qualified Code(s): M54.42 - Lumbago with sciatica, left side; M54.41 - Lumbago with sciatica, right side; G89.29 - Other chronic pain Condition: Stable Record reviewed to determine appropriate education?: Yes Instructions: ED Chronic Pain Management, ED Neck Back Pain General Prescriptions: Cyclobenzaprine [Flexeril] 10 mg PO TID PRN #10 tablet PRN Reason: Spasms Meloxicam [Mobic] 7.5 mg PO BID PRN #10 tablet PRN Reason: Pain Comments: I am giving you a stronger anti-inflammatory than ibuprofen in addition to enough muscle relaxers to get you through the weekend. All further medications should be from your primary care physician. The policy of this emergency department is to not give more than 3 prescriptions for narcotics or other controlled substances in any 1 year. You have already surpassed this benchmark and we cannot prescribe narcotics for you. I encourage you to follow up with your primary care physician or to establish care with a primary care physician for ongoing pain management. You are always welcome to seek emergency care here for this or new issues but there will likely be limitations in the prescription of narcotic pain medication. Your blood pressure was elevated today on check into the emergency department. This does not mean that you have hypertension, it is a common phenomenon to come to the emergency department and have elevated blood pressure. I recommend that you see your primary care physician within the week to have it rechecked when you are feeling better.
== END 2019-10-07 19:03 | disposition home or self-care (01) ==
LOC: ED 18:37
DX: M54.42 Lumbago with sciatica, left side (principal); M54.41 Lumbago with sciatica, right side; G89.29 Other chronic pain; I10 Essential (primary) hypertension; E11.9 Type 2 diabetes mellitus without complications; Z87.891 Personal history of nicotine dependence; Z79.84 Long term (current) use of oral hypoglycemic drugs
CPT/HCPCS: 99282; 99284; A9270

== ENCOUNTER 2019-10-30 05:16 | Emergency (ER) | payer MEDICAID ==
--- NOTE | 2019-10-30 05:21 | ED Physician Documentation ---
History of Present Illness - Stated complaint Stated Complaint: CP - History obtained from History obtained from: Patient (The patient is a 49-year-old male who presents with a chief complaint of cough, sore throat and chest pain. Patient currently is denying fevers but reports he has been having worsening cough and worsening shortness of breath he has been trying to use his inhaler but feels like he is having worsening shortness of breath when he lays flat. He denies any syncope or lower extremity swelling he does report a history of coronary artery disease without any stent placement patient reports he previously was on metformin for hyperglycemia but is been controlled with his diet recently.The patient reports he is a previous smoker and has moderate lung disease.) Review of Systems Constitutional: reports: Chills Eyes: reports: Reviewed and negative Ears: reports: Reviewed and negative Nose: reports: Reviewed and negative Throat: reports: Sore throat Cardiac: reports: Chest pain / pressure, Palpitations Respiratory: reports: Dyspnea, Cough, Wheezing GI: reports: Nausea : reports: Reviewed and negative Skin: reports: Reviewed and negative Musculoskeletal: reports: Reviewed and negative Neurologic: reports: Reviewed and negative Psychiatric: reports: Reviewed and negative Endocrine: reports: Reviewed and negative Immunocompromised: reports: Reviewed and negative PD PAST MEDICAL HISTORY - Past Medical History Cardiovascular: Hypertension, High cholesterol, Coronary artery disease, Angina Respiratory: None Neuro: Headaches Endocrine/Autoimmune: Type 2 diabetes GI: None : None HEENT: None Psych: Depression, Anxiety, ADD/ADHD Musculoskeletal: Chronic back pain Derm: None - Past Surgical History Past Surgical History: Yes Ortho: Spine surgery Cardiovascular: Cardiac catheterization - Present Medications Home Medications: Ambulatory Orders Medication Instructions Recorded Confirmed metFORMIN [Glucophage] 500 mg PO BIDWM 09/02/17 09/05/19 Metoprolol Succinate 50 mg PO DAILY 01/04/18 09/05/19 Albuterol Sulf [Ventolin Hfa 1 - 2 puffs INH Q4HR PRN #1 inhaler 01/10/18 09/05/19 Inhaler] Aspirin Chewable [St Oneil 81 mg PO DAILY #15 tablet 02/03/18 09/05/19 Aspirin] PARoxetine [Paxil] 10 mg DAILY 09/05/19 09/05/19 Cyclobenzaprine [Flexeril] 10 mg PO TID PRN #10 tablet 10/07/19 Meloxicam [Mobic] 7.5 mg PO BID PRN #10 tablet 10/07/19 Albuterol Sulfate [Albuterol 18 gm IH Q4HR PRN #1 hfa.aer.ad 10/30/19 Sulfate Hfa] predniSONE [Prednisone] 50 mg PO DAILY #5 tablet 10/30/19 - Allergies Allergies/Adverse Reactions: Allergies Allergy/AdvReac Type Severity Reaction Status Date / Time droperidol AdvReac Unknown Verified 10/30/19 05:28 - Social History Does the pt smoke?: No Smoking Status: Former smoker Does the pt drink ETOH?: Yes Does the pt have substance abuse?: No - Immunizations Immunizations are current?: Yes - POLST Patient has POLST: No POLST Status: Full Code PD ED PE NORMAL - Vitals Vital signs reviewed: Yes - General General: Alert and oriented X 3, No acute distress, Well developed/nourished - HEENT HEENT: Atraumatic, PERRL, Moist mucous membranes - Neck Neck: Supple, no meningeal sign, No JVD - Cardiac Cardiac: RRR, No murmur, Strong equal pulses - Respiratory Respiratory: No respiratory distress, Clear bilaterally - Abdomen Abdomen: Normal bowel sounds, Soft, Non tender, Non distended, No organomegaly - Back Back: No CVA TTP, No spinal TTP - Derm Derm: Warm and dry - Extremities Extremities: No deformity, No tenderness to palpate, Normal ROM s pain, No edema, No calf tenderness / cord - Neuro Neuro: Alert and oriented 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, 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, No motor deficit, No sensory deficit, Normal speech - Psych Psych: Normal mood, Normal affect Results - Vitals Vitals: Vital Signs - 24 hr 10/30/19 10/30/19 10/30/19 05:20 05:50 05:55 Temperature 37.4 C Heart Rate 98 107 H 96 Respiratory 16 18 18 Rate Blood Pressure 154/91 H 155/112 H 130/80 O2 Saturation 100 97 96 10/30/19 10/30/19 06:06 06:20 Temperature Heart Rate 93 90 Respiratory 13 16 Rate Blood Pressure 126/72 O2 Saturation 97 Oxygen O2 Source Room air - EKG (time done) 05:21 Rate: Other (no stemi) - Labs Labs: Laboratory Tests 10/30/19 10/30/19 10/30/19 05:30 05:30 05:30 WBC 6.9 RBC 4.54 L Hgb 14.0 Hct 42.0 MCV 92.5 MCH 30.8 MCHC 33.3 RDW 13.2 Plt Count 179 MPV 9.4 Neut # (Auto) 4.0 Lymph # (Auto) 1.7 [place] # (Auto) 0.8 Eos # (Auto) 0.3 Baso # (Auto) 0.1 Absolute Nucleated RBC 0.00 Nucleated RBC % 0.0 PT 10.6 INR 0.9 APTT 30.1 Sodium 138 Potassium 3.7 Chloride 98 L Carbon Dioxide 31 Anion Gap 9.0 BUN 16 Creatinine 1.0 Estimated GFR (MDRD) 79 L Glucose 137 H Calcium 9.1 Total Bilirubin 0.3 AST 31 ALT 32 Alkaline Phosphatase 70 Total Creatine Kinase Troponin I High Sens B-Natriuretic Peptide Total Protein 7.3 Albumin 4.4 Globulin 2.9 Albumin/Globulin Ratio 1.5 Lipase 26 Urine Color Urine Clarity Urine pH Ur Specific [place] Urine Protein Urine Glucose (UA) Urine Ketones Urine Occult Blood Urine Nitrite Urine Bilirubin Urine Urobilinogen Ur Leukocyte Esterase Ur Microscopic Review Urine Culture Comments Urine Opiates Screen Ur Oxycodone Screen Urine Methadone Screen Ur Propoxyphene Screen Ur Barbiturates Screen Ur Tricyclics Screen Ur Phencyclidine Scrn Ur Amphetamine Screen U Methamphetamines Scrn U Benzodiazepines Scrn Urine Cocaine Screen U Cannabinoids Screen Ethyl Alcohol Influenza A (Rapid) Influenza B (Rapid) 10/30/19 10/30/19 10/30/19 05:30 05:30 05:30 WBC RBC Hgb Hct MCV MCH MCHC RDW Plt Count MPV Neut # (Auto) Lymph # (Auto) [place] # (Auto) Eos # (Auto) Baso # (Auto) Absolute Nucleated RBC Nucleated RBC % PT INR APTT Sodium Potassium Chloride Carbon Dioxide Anion Gap BUN Creatinine Estimated GFR (MDRD) Glucose Calcium Total Bilirubin AST ALT Alkaline Phosphatase Total Creatine Kinase 453 H Troponin I High Sens 4.5 B-Natriuretic Peptide 19 Total Protein Albumin Globulin Albumin/Globulin Ratio Lipase Urine Color Urine Clarity Urine pH Ur Specific [place] Urine Protein Urine Glucose (UA) Urine Ketones Urine Occult Blood Urine Nitrite Urine Bilirubin Urine Urobilinogen Ur Leukocyte Esterase Ur Microscopic Review Urine Culture Comments Urine Opiates Screen Ur Oxycodone Screen Urine Methadone Screen Ur Propoxyphene Screen Ur Barbiturates Screen Ur Tricyclics Screen Ur Phencyclidine Scrn Ur Amphetamine Screen U Methamphetamines Scrn U Benzodiazepines Scrn Urine Cocaine Screen U Cannabinoids Screen Ethyl Alcohol < 5.0 Influenza A (Rapid) Influenza B (Rapid) 10/30/19 10/30/19 05:40 05:59 WBC RBC Hgb Hct MCV MCH MCHC RDW Plt Count MPV Neut # (Auto) Lymph # (Auto) [place] # (Auto) Eos # (Auto) Baso # (Auto) Absolute Nucleated RBC Nucleated RBC % PT INR APTT Sodium Potassium Chloride Carbon Dioxide Anion Gap BUN Creatinine Estimated GFR (MDRD) Glucose Calcium Total Bilirubin AST ALT Alkaline Phosphatase Total Creatine Kinase Troponin I High Sens B-Natriuretic Peptide Total Protein Albumin Globulin Albumin/Globulin Ratio Lipase Urine Color YELLOW Urine Clarity CLEAR Urine pH 6.0 Ur Specific [place] 1.010 Urine Protein NEGATIVE Urine Glucose (UA) 250 H Urine Ketones NEGATIVE Urine Occult Blood NEGATIVE Urine Nitrite NEGATIVE Urine Bilirubin NEGATIVE Urine Urobilinogen 0.2 (NORMAL) Ur Leukocyte Esterase NEGATIVE Ur Microscopic Review NOT INDICATED Urine Culture Comments NOT INDICATED Urine Opiates Screen POSITIVE H Ur Oxycodone Screen NEGATIVE Urine Methadone Screen NEGATIVE Ur Propoxyphene Screen NEGATIVE Ur Barbiturates Screen NEGATIVE Ur Tricyclics Screen POSITIVE H Ur Phencyclidine Scrn NEGATIVE Ur Amphetamine Screen NEGATIVE U Methamphetamines Scrn NEGATIVE U Benzodiazepines Scrn POSITIVE H Urine Cocaine Screen NEGATIVE U Cannabinoids Screen NEGATIVE Ethyl Alcohol Influenza A (Rapid) Negative Influenza B (Rapid) Negative PD MEDICAL DECISION MAKING - ED course Complexity details: re-evaluated patient (Patient has improved after treatment with MDI albuterol inhaler.Patient has a negative chest x-ray, negative EKG negative troponin he had a negative CTA of the chest that showed no evidence of pulmonary emboli in November 2018 he denies any lower extremity swelling or recent pe riods of stasis or any personal history of hypercoagulability or any personal family history of hypercoagulability denies any exogenous estrogen use.He denies any hemoptysis.Patient updated on his results explained to the patient that he will be responsible for following up on his COVID-19 testing patient agrees and understands and will follow-up with his primary care provider as well as himself to call here to the hospital to follow-up on results of COVID-19 testing. Patient reexamined, he is walking through the hallways no respiratory distress his breath sounds are clear bilaterally patient updated on all lab and imaging results and recommend treatment with an albuterol inhaler as well as prednisone burst and follow-up with his PCP tomorrow.), considered differential (hx and exam are consistent with viral uri, will send flu and covid with continued symptoms in absence of fever with worsening sob. ddx includes but not limited to acs, chf, pna, viral pna, uri, hx and exam not consistent with PE or dissection. ) Departure - Departure Disposition: 01 Home, Self Care Clinical Impression: Mild chronic obstructive pulmonary disease Condition: Stable Instructions: ED COPD Flare Follow-Up: Mt Mitchell MD [Primary Care Provider] - Tomorrow Prescriptions: Albuterol Sulfate [Albuterol Sulfate Hfa] 18 gm IH Q4HR PRN #1 hfa.aer.ad PRN Reason: Wheezing predniSONE [Prednisone] 50 mg PO DAILY #5 tablet Comments: use albuterol inhaler as needed, take medication as directed, call your pcp tomorrow for follow up, follow up on your COVID19 testing this week.
[2019-10-30] MEDS ORDERED: ASPIRIN 325 MG TABLET PO STA (05:38)
[2019-10-30] MEDS ORDERED: NITROGLYCERIN SL 0.4 MG TABLET SL PRN (05:38)
[2019-10-30] MEDS ORDERED: DEXAMETHASONE 10 MG/ML VIAL IVP STA (05:41)
[2019-10-30 05:58] LABS: BASOPHILS # (AUTO) 0.1 10^3/uL (0.0-0.1); BASOPHILS % (AUTO) 0.7 %; EOSINOPHILS # (AUTO) 0.3 10^3/uL (0.0-0.7); EOSINOPHILS % (AUTO) 4.9 %; LYMPHOCYTES # (AUTO) 1.7 10^3/uL (1.5-3.5); LYMPHOCYTES % (AUTO) 24.9 %; MEAN CORPUSCULAR HEMOGLOBIN 30.8 pg (27.0-31.0); MEAN CORPUSCULAR HGB CONC 33.3 g/dL (32.0-36.0); MEAN CORPUSCULAR VOLUME 92.5 fL (80.0-94.0); MEAN PLATELET VOLUME 9.4 fL (7.4-11.4); MONOCYTES # (AUTO) 0.8 10^3/uL (0.0-1.0); MONOCYTES % (AUTO) 11.4 %; NEUTROPHILS % (AUTO) 57.5 %; PLT - PLATELET COUNT 179 10^3/uL (130-450); RED BLOOD COUNT 4.54 10^6/uL (4.70-6.10); RED CELL DISTRIBUTION WIDTH 13.2 % (12.0-15.0); WHITE BLOOD COUNT 6.9 x10^3/uL (4.8-10.8)
[2019-10-30 06:01] LABS: MUDS CUTOFF CONCENTRATIONS CUTOFF CONC BELOW:
[2019-10-30 06:04] LABS: INR 0.9 (0.8-1.2); PT - PROTHROMBIN TIME 10.6 secs (9.9-12.6)
[2019-10-30 06:07] VITALS: BP 126/72
[2019-10-30] MEDS ORDERED: ALBUTEROL 1 PUFF INH STA (06:08)
[2019-10-30 06:12] LABS: ALBUMIN 4.4 g/dL (3.2-5.5); ALBUMIN/GLOBULIN RATIO 1.5 (1.0-2.2); BILIRUBIN,TOTAL 0.3 mg/dL (0.2-1.0); CALCIUM 9.1 mg/dL (8.5-10.3); CK- CREATINE KINASE 453 IU/L (22-269); PARTIAL THROMBOPLASTIN TIME 30.1 secs (24.9-33.3); TOTAL PROTEIN 7.3 g/dL (6.7-8.2)
[2019-10-30 06:16] LABS: BILIRUBIN,URINE NEGATIVE (NEGATIVE); CLARITY,URINE CLEAR (CLEAR); GLUCOSE, URINE (UA) 250 mg/dL (NEGATIVE); KETONES,URINE (UA) NEGATIVE (NEGATIVE); LEUKOCYTE ESTERASE, URINE NEGATIVE (NEGATIVE); NITRITE,URINE NEGATIVE (NEGATIVE); OCCULT BLOOD,URINE NEGATIVE (NEGATIVE); PROTEIN,URINE NEGATIVE (NEGATIVE); UROBILINOGEN,URINE 0.2 (NORMAL) E.U./dL (NORMAL)
--- NOTE | 2019-10-30 06:16 | XRAY Report ---
Reason: cough sob Procedure Date: 10/30/2019 Accession Number: [id number] / [id number] Procedure: XR - Chest 1 View X-Ray CPT Code: 61044 Final Report FULL RESULT: EXAM: CHEST RADIOGRAPHY EXAM DATE: 10/30/2019 06:06 AM. CLINICAL HISTORY: Cough, shortness of breath. COMPARISON: CHEST 1 VIEW 09/05/2019 6:12 PM CHEST ANGIO 11/07/2018 1:38 PM. TECHNIQUE: 1 view. FINDINGS: Lungs/Pleura: No focal opacities evident. No pleural effusion. No pneumothorax. Mediastinum: Within exam limitations, the cardiomediastinal contour is normal. Other: Previous cervical surgery. IMPRESSION: No acute process seen in the chest. RADIA
[2019-10-30 06:28] LABS: AMPHETAMINE SCREEN,URINE NEGATIVE (NEGATIVE); BENZODIAZEPINES SCREEN, URINE POSITIVE (NEGATIVE); COCAINE SCREEN URINE NEGATIVE (NEGATIVE); METHADONE SCREEN, URINE NEGATIVE (NEGATIVE); METHAMPHETAMINES SCREEN, URINE NEGATIVE (NEGATIVE); OPIATE SCREEN, URINE POSITIVE (NEGATIVE); OXYCODONE SCREEN, URINE NEGATIVE (NEGATIVE); PROPOXYPHENE SCREEN, URINE NEGATIVE (NEGATIVE); TRICYCLIC ANTIDEPRESSANT,URINE POSITIVE (NEGATIVE)
== END 2019-10-30 06:48 | disposition home or self-care (01) ==
LOC: ED 05:16
DX: J44.9 Chronic obstructive pulmonary disease, unspecified (principal); I10 Essential (primary) hypertension; E11.9 Type 2 diabetes mellitus without complications; Z87.891 Personal history of nicotine dependence
CPT/HCPCS: 36415; 71045; 80053; 80306; 80320; 81003; 82550; 83690; 83880; 84484; 85025; 85610; 85730; 87275; 87276; 87635; 93005; 94640; 94664; 96374; 99284; 99285; A9270; 81001; 81599; 87086

== ENCOUNTER 2019-12-23 11:26 | Emergency (ER) | payer MEDICAID ==
[2019-12-23 11:51] LABS: BASOPHILS % (AUTO) 0.5 %; EOSINOPHILS # (AUTO) 0.3 10^3/uL (0.0-0.7); EOSINOPHILS % (AUTO) 3.8 %; HGB - HEMOGLOBIN 15.4 g/dL (14.0-18.0); LYMPHOCYTES # (AUTO) 1.1 10^3/uL (1.5-3.5); LYMPHOCYTES % (AUTO) 14.9 %; MEAN CORPUSCULAR HEMOGLOBIN 31.4 pg (27.0-31.0); MEAN CORPUSCULAR VOLUME 92.3 fL (80.0-94.0); MEAN PLATELET VOLUME 9.2 fL (7.4-11.4); MONOCYTES # (AUTO) 0.4 10^3/uL (0.0-1.0); MONOCYTES % (AUTO) 5.9 %; NEUTROPHILS # (AUTO) 5.5 10^3/uL (1.5-6.6); NEUTROPHILS % (AUTO) 74.6 %; PLT - PLATELET COUNT 178 10^3/uL (130-450); RED BLOOD COUNT 4.91 10^6/uL (4.70-6.10); RED CELL DISTRIBUTION WIDTH 13.1 % (12.0-15.0); WHITE BLOOD COUNT 7.3 x10^3/uL (4.8-10.8)
[2019-12-23 12:04] LABS: ALBUMIN 4.4 g/dL (3.2-5.5); ALBUMIN/GLOBULIN RATIO 1.4 (1.0-2.2); BILIRUBIN,TOTAL 0.8 mg/dL (0.2-1.0); CALCIUM 9.4 mg/dL (8.5-10.3); TOTAL PROTEIN 7.6 g/dL (6.7-8.2)
[2019-12-23] MEDS ORDERED: LIDOCAINE VISCOUS 2% 15 ML UDC MM STA (12:25)
[2019-12-23] MEDS ORDERED: SUCRALFATE 1 GM/10 ML UDC PO STA (12:25)
[2019-12-23] MEDS ORDERED: MAG HYDROX/AL HYDROX/SIMETH 30 ML UDC PO STA (12:25)
--- NOTE | 2019-12-23 12:30 | ED Physician Documentation ---
PD HPI CHEST PAIN - Stated complaint Stated Complaint: CHEST PX - Chief complaint Chief Complaint: Cardiac - History obtained from History obtained from: Patient - History of Present Illness Timing - onset: Yesterday Timing - onset during: Rest Timing - duration: Hours (30) Pain level max: 5 Pain level now: 5 Quality: Pressure Improved by: Nothing Worsened by: Other (Nothing) Associated symptoms: No: Shortness of air, Diaphoresis, Nausea, Vomiting, Feeling faint / dizzy, General Weakness, Palpitations, Cough - Additional information Additional information: Patient is a 49-year-old male who presents to the emergency department after mixing caffeine powder with his coffee yesterday morning. Since that time he has had chest pain continuously. Nothing has made it better or worse. No shortness of breath. No nausea. No vomiting. Does not radiate. He did take aspirin prior to arrival today. No cough. No congestion. No fever. No recent travel. No recent antibiotics. Review of Systems Ten Systems: 10 systems reviewed and negative Constitutional: denies: Fever, Chills Nose: denies: Rhinorrhea / runny nose, Congestion Respiratory: denies: Cough GI: denies: Nausea, Vomiting, Diarrhea Skin: denies: Rash Musculoskeletal: denies: Neck pain, Back pain Neurologic: denies: Headache PD PAST MEDICAL HISTORY - Past Medical History Past Medical History: Yes Cardiovascular: Hypertension, High cholesterol, Coronary artery disease, Angina Respiratory: None Neuro: Headaches Endocrine/Autoimmune: Type 2 diabetes GI: None : None HEENT: None Psych: Depression, Anxiety, ADD/ADHD Musculoskeletal: Chronic back pain Derm: None - Past Surgical History Past Surgical History: Yes Ortho: Spine surgery Cardiovascular: Cardiac catheterization - Present Medications Home Medications: Ambulatory Orders Medication Instructions Recorded Confirmed metFORMIN [Glucophage] 500 mg PO BIDWM 09/02/17 09/05/19 Metoprolol Succinate 50 mg PO DAILY 01/04/18 09/05/19 Albuterol Sulf [Ventolin Hfa 1 - 2 puffs INH Q4HR PRN #1 inhaler 01/10/18 09/05/19 Inhaler] Aspirin Chewable [St Oneil 81 mg PO DAILY #15 tablet 02/03/18 09/05/19 Aspirin] PARoxetine [Paxil] 10 mg DAILY 09/05/19 09/05/19 Cyclobenzaprine [Flexeril] 10 mg PO TID PRN #10 tablet 10/07/19 Meloxicam [Mobic] 7.5 mg PO BID PRN #10 tablet 10/07/19 Albuterol Sulfate [Albuterol 18 gm IH Q4HR PRN #1 hfa.aer.ad 10/30/19 Sulfate Hfa] predniSONE [Prednisone] 50 mg PO DAILY #5 tablet 10/30/19 - Allergies Allergies/Adverse Reactions: Allergies Allergy/AdvReac Type Severity Reaction Status Date / Time droperidol AdvReac Unknown Verified 12/23/19 11:39 - Social History Does the pt smoke?: No Smoking Status: Never smoker Does the pt drink ETOH?: Yes Does the pt have substance abuse?: No - Immunizations Immunizations are current?: Yes - POLST Patient has POLST: No POLST Status: Full Code PD ED PE NORMAL - Vitals Vital signs reviewed: Yes - General General: Alert and oriented X 3, No acute distress, Well developed/nourished - HEENT HEENT: Moist mucous membranes - Neck Neck: Supple, no meningeal sign - Cardiac Cardiac: RRR, Strong equal pulses - Respiratory Respiratory: No respiratory distress, Clear bilaterally - Abdomen Abdomen: Soft, Non tender, Non distended - Derm Derm: Warm and dry - Extremities Extremities: No deformity, No edema, No calf tenderness / cord - Neuro Neuro: Alert and oriented X 3 - Psych Psych: Normal mood, Normal affect Results - Vitals Vitals: Vital Signs - 24 hr 12/23/19 12/23/19 12/23/19 11:36 12:35 13:37 Temperature 36.7 C Heart Rate 111 H 97 93 Respiratory 8 L 14 18 Rate Blood Pressure 170/99 H 156/101 H 194/124 H O2 Saturation 97 96 99 Oxygen O2 Source Room air - EKG (time done) 1132 Rate: Rate (enter#) (108) Rhythm: Sinus tachycardia (108) [place]: Normal Intervals: Normal [place] QRS: Normal Ischemia: Non specific changes 1215 Rate: Rate (enter#) (104) Rhythm: Sinus tachycardia [place]: Normal Intervals: Normal ND QRS: Normal Ischemia: Non specific changes - Labs Labs: Laboratory Tests 12/23/19 12/23/19 12/23/19 11:45 11:45 11:45 WBC 7.3 RBC 4.91 Hgb 15.4 Hct 45.3 MCV 92.3 MCH 31.4 H MCHC 34.0 RDW 13.1 Plt Count 178 MPV 9.2 Neut # (Auto) 5.5 Lymph # (Auto) 1.1 L [place] # (Auto) 0.4 Eos # (Auto) 0.3 Baso # (Auto) 0.0 Absolute Nucleated RBC 0.00 Nucleated RBC % 0.0 Sodium 136 Potassium 3.7 Chloride 98 L Carbon Dioxide 27 Anion Gap 11.0 BUN 13 Creatinine 1.0 Estimated GFR (MDRD) 79 L Glucose 162 H Calcium 9.4 Total Bilirubin 0.8 AST 33 ALT 31 Alkaline Phosphatase 60 Troponin I High Sens 3.2 Total Protein 7.6 Albumin 4.4 Globulin 3.2 Albumin/Globulin Ratio 1.4 Lipase 32 - Rads (name of study) Chest x-ray Radiology: Prelim report reviewed, EMP read contemporaneously, See rad report (No acute disease) PD MEDICAL DECISION MAKING - ED course Complexity details: reviewed results, re-evaluated patient, considered differential (No ST elevation AL, no aortic dissection, no PE, no tension pneumothorax, no aortic aneurysm), d/w patient ED course: No acute findings on EKG. Negative high-sensitivity troponin after greater than 24 hours of symptoms. No evidence of PE. Likely related to PE extra caffeine that he ingested. Patient request to go home after receiving Toradol and a GI cocktail. He will follow-up with his doctor for further care. Patient counseled regarding signs and symptoms for which I believe and urgent re- evaluation would be necessary. Patient with good understanding of and agreement to plan and is comfortable going home at this time This document was made in part using voice recognition software. While efforts are made to proofread this document, sound alike and grammatical errors may occur. Departure - Departure Disposition: 01 Home, Self Care Clinical Impression: Chest pain Qualifiers: Chest pain type: unspecified Qualified Code(s): R07.9 - Chest pain, unspecified Condition: Good Instructions: ED Chest Pain Atypical Unkn Cause Follow-Up: Mt Mitchell MD [Primary Care Provider] - Within 1 week Comments: Please do not add caffeine powder to your coffee anymore as this will likely cause chest pain. Return if you worsen. Discharge Date/Time: 12/23/19 13:39
--- NOTE | 2019-12-23 13:16 | XRAY Report ---
PROCEDURE: Chest 1 View X-Ray INDICATIONS: Chest pain TECHNIQUE: One view of the chest was acquired. COMPARISON: Prior chest plain film imaging 10/30/2019 and 09/05/2019 reviewed. FINDINGS: Surgical changes and devices: None. Lungs and pleura: No pleural effusions or pneumothorax. Lungs are clear. Mediastinum: Mediastinal contours appear normal. Heart size is normal. Bones and chest wall: No suspicious bony lesions. Overlying soft tissues appear unremarkable. IMPRESSION: Normal for age, source of chest pain is not seen. Reviewed by: Harinder Kenny MD on 12/23/2019 12:14 PM [facility] Approved by: Harinder Kenny MD on 12/23/2019 12:14 PM [facility] Station ID: [id number]
[2019-12-23] MEDS ORDERED: KETOROLAC 30 MG/ML VIAL IVP STA (13:24)
[2019-12-23 13:37] VITALS: BP 194/124
== END 2019-12-23 13:39 | disposition home or self-care (01) ==
LOC: ED 11:26
DX: R07.9 Chest pain, unspecified (principal); R00.0 Tachycardia, unspecified; I25.10 Atherosclerotic heart disease of native coronary artery without angina pectoris; I10 Essential (primary) hypertension; E11.9 Type 2 diabetes mellitus without complications; Z79.84 Long term (current) use of oral hypoglycemic drugs; Z79.82 Long term (current) use of aspirin
CPT/HCPCS: 36415; 71045; 80053; 83690; 84484; 85025; 93005; 96374; 99284; A9270

== ENCOUNTER 2020-01-04 19:20 | Emergency (ER) | payer MEDICAID, OTHER ==
[2020-01-04 19:37] VITALS: BP 146/88
--- NOTE | 2020-01-04 20:01 | ED Physician Documentation ---
PD HPI BACK PAIN - Stated complaint Stated Complaint: BACK PAIN - Chief complaint Chief Complaint: Back Pain - History obtained from History obtained from: Patient - History of Present Illness Timing - onset: How many hours ago (1) Timing - details: Abrupt onset Pain level now: 9 Location: Lower, Right, Left Quality: Pain Associated symptoms: No: Fever, Weakness, Numbness, Incontinent of urine, Unable to urinate Improves with: Rest Worsened by: Movement Recently seen: Clinic (12/28/19 (back pain)) - Additional information Additional information: c/o low back pain, bilateral, radiating to both hips and to pelvis, sudden onset when having 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 He says he was driven to ED by his father who dropped him off. Pain is worse with movement. Review of Systems GI: denies: Abdominal Pain : denies: Unable to Void, Incontinent Skin: denies: Rash Musculoskeletal: reports: Back pain Neurologic: denies: Focal weakness, Numbness PD PAST MEDICAL HISTORY - Past Medical History Cardiovascular: Hypertension, High cholesterol, Coronary artery disease, Angina Respiratory: None Neuro: Headaches Endocrine/Autoimmune: Type 2 diabetes GI: None : None HEENT: None Psych: Depression, Anxiety, ADD/ADHD Musculoskeletal: Chronic back pain Derm: None - Past Surgical History Past Surgical History: Yes Ortho: Spine surgery Cardiovascular: Cardiac catheterization - Present Medications Home Medications: Ambulatory Orders Medication Instructions Recorded Confirmed metFORMIN [Glucophage] 500 mg PO BIDWM 09/02/17 09/05/19 Metoprolol Succinate 50 mg PO DAILY 01/04/18 09/05/19 Albuterol Sulf [Ventolin Hfa 1 - 2 puffs INH Q4HR PRN #1 inhaler 01/10/18 09/05/19 Inhaler] Aspirin Chewable [St Oneil 81 mg PO DAILY #15 tablet 02/03/18 09/05/19 Aspirin] PARoxetine [Paxil] 10 mg DAILY 09/05/19 09/05/19 Cyclobenzaprine [Flexeril] 10 mg PO TID PRN #10 tablet 10/07/19 Meloxicam [Mobic] 7.5 mg PO BID PRN #10 tablet 10/07/19 Albuterol Sulfate [Albuterol 18 gm IH Q4HR PRN #1 hfa.aer.ad 10/30/19 Sulfate Hfa] predniSONE [Prednisone] 50 mg PO DAILY #5 tablet 10/30/19 - Allergies Allergies/Adverse Reactions: Allergies Allergy/AdvReac Type Severity Reaction Status Date / Time droperidol AdvReac Unknown Verified 12/23/19 11:39 - Social History Does the pt smoke?: No Smoking Status: Never smoker Does the pt drink ETOH?: Yes Does the pt have substance abuse?: No - Immunizations Immunizations are current?: Yes - POLST Patient has POLST: No POLST Status: Full Code PD ED PE NORMAL - Vitals Vital signs reviewed: Yes - General General: Alert and oriented X 3, No acute distress (lying on his left side on stretcher), Well developed/nourished - Abdomen Abdomen: Soft, Non tender - Back Back: No CVA TTP, No spinal TTP - Derm Derm: Normal color, Warm and dry - Neuro Neuro: No motor deficit, No sensory deficit, Other (2+/4 bilateral patella DTR) Results - Vitals Vitals: Vital Signs - 24 hr 01/04/20 19:34 Temperature 36.3 C L Heart Rate 95 Respiratory 20 Rate Blood Pressure 146/88 H O2 Saturation 99 Oxygen O2 Source Room air PD MEDICAL DECISION MAKING - ED course Complexity details: reviewed old records, considered differential, d/w patient ED course: I ordered toradol and decadron as well as take-home packs of flexeril and vicodin. He has had several visits to this ED for back pain, and I also note outpatient visit 12/28/19 with rx filled for 20 vicodin that day; he says this was for back pain. When I ordered the above medications, I explained that I would reevaluate him after the toradol had enough time to take effect. However, shortly after I ordered the medications, he came out to the nurse's station and requested immediate discharge due to some type of emergency he had to address at home. He was ambulating on his own without apparent/obvious difficulty. He did not appear to be angry and was not demanding, but he was requesting that I print discharge sheets so that he could leave immediately. I printed discharge sheets and patient left before medications were given. Departure - Departure Disposition: 01 Home, Self Care Clinical Impression: Back pain Qualifiers: Back pain location: low back pain Chronicity: acute Back pain laterality: bilateral Sciatica presence: without sciatica Qualified Code(s): M54.5 - Low back pain Condition: Good Instructions: ED Low Back Pain Injury Follow-Up: Mt Mitchell MD [Primary Care Provider] - Discharge Date/Time: 01/04/20 20:40
[2020-01-04] MEDS ORDERED: DEXAMETHASONE 10 MG/ML VIAL PO STA (20:27)
[2020-01-04] MEDS ORDERED: HYDROcod/ACET 5/325 Prepack 4 PO STA (20:27)
[2020-01-04] MEDS ORDERED: CHERRY SYRUP 10 ML UDC PO ONE (20:27)
[2020-01-04] MEDS ORDERED: KETOROLAC 60 MG/2 ML VIAL IM STA (20:27)
[2020-01-04] MEDS ORDERED: CYCLOBENZAPRINE 10 MG Prepack 2 PO PRN (20:28)
== END 2020-01-04 20:40 | disposition home or self-care (01) ==
LOC: ED 19:20
DX: M54.5 Low back pain (principal); I10 Essential (primary) hypertension; E11.9 Type 2 diabetes mellitus without complications; Z79.84 Long term (current) use of oral hypoglycemic drugs; Z79.82 Long term (current) use of aspirin
CPT/HCPCS: 99281; 99282

== ENCOUNTER 2020-01-25 10:30 | Outpatient (CLI) | payer MEDICAID | END 2020-01-25 23:59 | disposition home or self-care (01) | LOC: COV 10:30 | PROVIDERS: ATTEND Family Medicine | DX: R05 Cough (principal); R06.02 Shortness of breath; R53.1 Weakness; J02.9 Acute pharyngitis, unspecified; R11.0 Nausea; Z20.828 Contact with and (suspected) exposure to other viral communicable diseases ==

== ENCOUNTER 2020-03-31 11:21 | Emergency (ER) | payer MEDICAID ==
[2020-03-31 12:02] LABS: BASOPHILS # (AUTO) 0.1 10^3/uL (0.0-0.1); BASOPHILS % (AUTO) 0.8 %; EOSINOPHILS # (AUTO) 0.2 10^3/uL (0.0-0.7); EOSINOPHILS % (AUTO) 2.8 %; HGB - HEMOGLOBIN 14.3 g/dL (14.0-18.0); LYMPHOCYTES % (AUTO) 16.8 %; MEAN CORPUSCULAR HEMOGLOBIN 29.8 pg (27.0-31.0); MEAN CORPUSCULAR HGB CONC 32.3 g/dL (32.0-36.0); MEAN CORPUSCULAR VOLUME 92.3 fL (80.0-94.0); MEAN PLATELET VOLUME 9.4 fL (7.4-11.4); MONOCYTES # (AUTO) 0.5 10^3/uL (0.0-1.0); MONOCYTES % (AUTO) 8.3 %; NEUTROPHILS # (AUTO) 4.3 10^3/uL (1.5-6.6); PLT - PLATELET COUNT 175 10^3/uL (130-450); RED CELL DISTRIBUTION WIDTH 11.6 % (12.0-15.0)
[2020-03-31 12:25] LABS: ALBUMIN 4.5 g/dL (3.2-5.5); ALBUMIN/GLOBULIN RATIO 1.5 (1.0-2.2); BILIRUBIN,TOTAL 0.6 mg/dL (0.2-1.0); CALCIUM 9.7 mg/dL (8.5-10.3); TOTAL PROTEIN 7.5 g/dL (6.7-8.2)
--- NOTE | 2020-03-31 12:32 | XRAY Report ---
PROCEDURE: Chest 1 View X-Ray INDICATIONS: Chest pain TECHNIQUE: One view of the chest was acquired. COMPARISON: 12/23/2019 FINDINGS: Surgical changes and devices: Lower cervical spine fixation hardware is seen. Lungs and pleura: No pleural effusions or pneumothorax. Lungs are clear. Mediastinum: Mediastinal contours appear normal. Heart size is normal. Bones and chest wall: No suspicious bony lesions. Age-appropriate degenerative changes are seen. Overlying soft tissues appear unremarkable. IMPRESSION: Unremarkable portable chest, with note made of postoperative and degenerative change. Reviewed by: Darien Mckee MD on 03/31/2020 11:30 AM [facility] Approved by: Darien Mckee MD on 03/31/2020 11:30 AM [facility] Station ID: [id number]
[2020-03-31] MEDS ORDERED: predniSONE 20 MG TABLET PO STA (13:12)
[2020-03-31] MEDS ORDERED: IPRATROPIUM/ALBUTEROL 3 ML NEB INH STA (13:12)
--- NOTE | 2020-03-31 13:14 | ED Physician Documentation ---
PD HPI DYSPNEA - Stated complaint Stated Complaint: SOA - Chief complaint Chief Complaint: Cardiac - History obtained from History obtained from: Patient - History of Present Illness Timing - onset: How many days ago (5-6) Timing - onset during: Rest Timing - details: Gradual onset Pain level max: 4 Pain level now: 3 Associated symptoms: Wheezing. No: Fever, Hemoptysis, Palpitations, Diaphoresis, Bilateral edema, Unilateral edema Recently seen: Not recently seen - Additional information Additional information: Patient is a 49-year-old male who presents to the emergency department complaining of dyspnea for the past 5 to 6 days. He states he quit smoking about 6 months ago. No fevers. Mild, dry cough unchanged. No sore throat. Rhinorrhea, congestion. He states he is using his albuterol inhaler without relief. Feels a tightness in his chest as well. Nothing makes it better or worse. Review of Systems Constitutional: denies: Fever, Chills Cardiac: denies: Calf pain Respiratory: denies: Hemoptysis GI: denies: Abdominal Pain, Nausea, Vomiting, Diarrhea : denies: Dysuria Skin: denies: Rash Musculoskeletal: denies: Neck pain, Back pain Neurologic: denies: Headache PD PAST MEDICAL HISTORY - Past Medical History Past Medical History: Yes Cardiovascular: Hypertension, High cholesterol, Coronary artery disease, Angina Respiratory: Asthma Neuro: Headaches Endocrine/Autoimmune: Type 2 diabetes GI: None : None HEENT: None Psych: Depression, Anxiety, ADD/ADHD Musculoskeletal: Chronic back pain Derm: None - Past Surgical History Past Surgical History: Yes Ortho: Spine surgery Cardiovascular: Cardiac catheterization - Present Medications Home Medications: Ambulatory Orders Medication Instructions Recorded Confirmed metFORMIN [Glucophage] 500 mg PO BIDWM 09/02/17 09/05/19 Metoprolol Succinate 50 mg PO DAILY 01/04/18 09/05/19 Albuterol Sulf [Ventolin Hfa 1 - 2 puffs INH Q4HR PRN #1 inhaler 01/10/18 09/05/19 Inhaler] Aspirin Chewable [St Oneil 81 mg PO DAILY #15 tablet 02/03/18 09/05/19 Aspirin] PARoxetine [Paxil] 10 mg DAILY 09/05/19 09/05/19 Cyclobenzaprine [Flexeril] 10 mg PO TID PRN #10 tablet 04/03/20 Meloxicam [Mobic] 7.5 mg PO BID PRN #10 tablet 10/07/19 Albuterol Sulfate [Albuterol 18 gm IH Q4HR PRN #1 hfa.aer.ad 10/30/19 Sulfate Hfa] predniSONE [Prednisone] 50 mg PO DAILY #5 tablet 10/30/19 Albuterol Sulf [Ventolin Hfa 1 - 2 puffs INH Q4HR PRN #1 inhaler 03/31/20 Inhaler] predniSONE [Deltasone] 10 mg PO [id number] #42 tab 03/31/20 - Allergies Allergies/Adverse Reactions: Allergies Allergy/AdvReac Type Severity Reaction Status Date / Time droperidol AdvReac Unknown Verified 03/31/20 11:36 - Social History Does the pt smoke?: No Smoking Status: Former smoker Does the pt drink ETOH?: No Does the pt have substance abuse?: No - Immunizations Immunizations are current?: Yes - POLST Patient has POLST: No POLST Status: Full Code PD ED PE NORMAL - Vitals Vital signs reviewed: Yes - General General: Alert and oriented X 3, No acute distress - HEENT HEENT: Moist mucous membranes - Neck Neck: Supple, no meningeal sign - Cardiac Cardiac: RRR - Respiratory Respiratory: No respiratory distress, Other (Diminished breath sounds bilaterally) - Abdomen Abdomen: Soft, Non tender, Non distended - Derm Derm: Warm and dry - Extremities Extremities: No calf tenderness / cord - Neuro Neuro: Alert and oriented X 3 - Psych Psych: Normal mood, Normal affect Results - Vitals Vitals: Vital Signs - 24 hr 03/31/20 03/31/20 03/31/20 11:32 12:15 12:33 Temperature 36.6 C Heart Rate 95 89 92 Respiratory 15 16 14 Rate Blood Pressure 182/93 H 155/105 H O2 Saturation 97 95 96 03/31/20 03/31/20 03/31/20 13:21 13:30 14:06 Temperature 36.8 C 36.8 C Heart Rate 97 81 91 Respiratory 18 16 17 Rate Blood Pressure 142/104 H 148/94 H O2 Saturation 97 96 Oxygen O2 Source Room air - EKG (time done) 1131 Rate: Rate (enter#) (90) Rhythm: NSR [place]: Normal Intervals: Normal [place] QRS: Normal Ischemia: Normal ST segments - Labs Labs: Laboratory Tests 03/31/20 03/31/20 03/31/20 11:57 11:57 11:57 WBC 6.0 RBC 4.80 Hgb 14.3 Hct 44.3 MCV 92.3 MCH 29.8 MCHC 32.3 RDW 11.6 L Plt Count 175 MPV 9.4 Neut # (Auto) 4.3 Lymph # (Auto) 1.0 L [place] # (Auto) 0.5 Eos # (Auto) 0.2 Baso # (Auto) 0.1 Absolute Nucleated RBC 0.00 Nucleated RBC % 0.0 Sodium 138 Potassium 3.9 Chloride 99 L Carbon Dioxide 26 Anion Gap 13.0 BUN 11 Creatinine 1.0 Estimated GFR (MDRD) 79 L Glucose 219 H Calcium 9.7 Total Bilirubin 0.6 AST 39 ALT 37 Alkaline Phosphatase 62 Troponin I High Sens 3.7 Total Protein 7.5 Albumin 4.5 Globulin 3.0 Albumin/Globulin Ratio 1.5 Lipase 18 L - Rads (name of study) chest X-ray Radiology: Prelim report reviewed, EMP read contemporaneously, See rad report (No acute disease) PD MEDICAL DECISION MAKING - ED course Complexity details: reviewed results, re-evaluated patient, considered differential, d/w patient ED course: Patient with what appears to be a COPD exacerbation. Feels much better after DuoNeb treatment and steroids. Patient is well-appearing, nontoxic. Afebrile. No hypoxia. No respiratory distress. No evidence of infection. Will place on steroid taper for home and have him follow-up with his doctor for further care. Patient counseled regarding signs and symptoms for which I believe and urgent re-evaluation would be necessary. Patient with good understanding of and agreement to plan and is comfortable going home at this time This document was made in part using voice recognition software. While efforts are made to proofread this document, sound alike and grammatical errors may occur. Departure - Departure Disposition: 01 Home, Self Care Clinical Impression: COPD exacerbation Condition: Good Instructions: ED COPD Flare Follow-Up: Mt Mitchell MD [Primary Care Provider] - Within 1 week Prescriptions: Albuterol Sulf [Ventolin Hfa Inhaler] 1 - 2 puffs INH Q4HR PRN #1 inhaler PRN Reason: Shortness Of Air/Wheezing predniSONE [Deltasone] 10 mg PO [id number] #42 tab Comments: Use the medications as prescribed. Return if you worsen. Discharge Date/Time: 03/31/20 14:08
[2020-03-31 14:07] VITALS: BP 148/94
== END 2020-03-31 14:08 | disposition home or self-care (01) ==
LOC: ED 11:21
DX: J44.1 Chronic obstructive pulmonary disease with (acute) exacerbation (principal); Z20.828 Contact with and (suspected) exposure to other viral communicable diseases; Z87.891 Personal history of nicotine dependence; I10 Essential (primary) hypertension; E11.9 Type 2 diabetes mellitus without complications; Z79.84 Long term (current) use of oral hypoglycemic drugs; Z79.82 Long term (current) use of aspirin
CPT/HCPCS: 36415; 71045; 80053; 83690; 84484; 85025; 87635; 93005; 94640; 99284; J7512

== ENCOUNTER 2020-04-05 09:08 | Emergency (ER) | payer MEDICAID ==
--- NOTE | 2020-04-05 09:17 | ED Physician Documentation ---
PD HPI DYSPNEA - Stated complaint Stated Complaint: DIFFICULTY BREATHING / PANIC ATTACK - History obtained from History obtained from: Patient - History of Present Illness Timing - onset: Today (awoke this morning with feeeling of anxiety and dyspnea. no chest pain per se. [place] heart rate going fast.) Timing - onset during: Rest, Light activity Timing - details: Gradual onset, Still present, Waxing and waning Inciting event(s): No: Out of meds, URI, Emotional event Improved by: Inhaler/neb Associated symptoms: Palpitations. No: Fever, Cough, Hemoptysis, Wheezing, Chest pain / discomfort, Bilateral edema Similar symptoms before: No diagnosis Recently seen: Emergency Dept (similar symptoms few days ago and was improved for couple days with inhaler and dose steroids. Did not get to pharmacy yet for Rx of steroids/MDI. Dx with COPD/asthma at that visit.) Review of Systems Constitutional: denies: Fever, Chills, Myalgias Nose: denies: Rhinorrhea / runny nose, Congestion Throat: denies: Sore throat Cardiac: reports: Palpitations. denies: Chest pain / pressure, Pedal edema, Calf pain Respiratory: reports: Dyspnea, Wheezing. denies: Cough, Hemoptysis GI: denies: Nausea, Vomiting, Diarrhea Skin: denies: Rash Neurologic: denies: Near syncope, Altered mental status, Headache Psychiatric: reports: Anxiety. denies: Depressed Immunocompromised: denies: Immunocompromised PD PAST MEDICAL HISTORY - Past Medical History Cardiovascular: Hypertension, High cholesterol, Coronary artery disease, Angina Respiratory: Asthma Neuro: Headaches Endocrine/Autoimmune: Type 2 diabetes GI: None : None HEENT: None Psych: Depression, Anxiety, ADD/ADHD Musculoskeletal: Chronic back pain Derm: None - Past Surgical History Past Surgical History: Yes Ortho: Spine surgery Cardiovascular: Cardiac catheterization - Present Medications Home Medications: Ambulatory Orders Medication Instructions Recorded Confirmed metFORMIN [Glucophage] 500 mg PO BIDWM 09/02/17 09/05/19 Metoprolol Succinate 50 mg PO DAILY 01/04/18 09/05/19 Albuterol Sulf [Ventolin Hfa 1 - 2 puffs INH Q4HR PRN #1 inhaler 01/10/18 09/05/19 Inhaler] Aspirin Chewable [St Oneil 81 mg PO DAILY #15 tablet 02/03/18 09/05/19 Aspirin] PARoxetine [Paxil] 10 mg DAILY 09/05/19 09/05/19 Cyclobenzaprine [Flexeril] 10 mg PO TID PRN #10 tablet 10/07/19 Meloxicam [Mobic] 7.5 mg PO BID PRN #10 tablet 10/07/19 Albuterol Sulfate [Albuterol 18 gm IH Q4HR PRN #1 hfa.aer.ad 10/30/19 Sulfate Hfa] predniSONE [Prednisone] 50 mg PO DAILY #5 tablet 10/30/19 Albuterol Sulf [Ventolin Hfa 1 - 2 puffs INH Q4HR PRN #1 inhaler 03/31/20 Inhaler] predniSONE [Deltasone] 10 mg PO [id number] #42 tab 03/31/20 Ipratropium/Albuterol [Combivent 2 puffs IH TID #1 aer.w.adap 04/05/20 Respimat] LORazepam [Ativan] 1 mg PO BID #10 tablet 04/05/20 dexAMETHasone [Decadron] 4 mg PO DAILY #5 tablet 04/05/20 - Allergies Allergies/Adverse Reactions: Allergies Allergy/AdvReac Type Severity Reaction Status Date / Time droperidol AdvReac Unknown Verified 04/05/20 09:17 - Social History Does the pt smoke?: No Smoking Status: Former smoker Does the pt drink ETOH?: No Does the pt have substance abuse?: No - Immunizations Immunizations are current?: Yes - POLST Patient has POLST: No POLST Status: Full Code PD ED PE NORMAL - Vitals Vital signs reviewed: Yes (sats are good. BP some elevated. ) - General General: Alert and oriented X 3, No acute distress (but does seem some anxious. walking in room, not wanting to sit. ), Well developed/nourished - HEENT HEENT: Moist mucous membranes, Pharynx benign - Neck Neck: Supple, no meningeal sign, No adenopathy, No JVD - Cardiac Cardiac: RRR, No murmur - Respiratory Respiratory: No respiratory distress. No: Clear bilaterally (some scattered exp wheezing. ) - Abdomen Abdomen: Soft, Non tender - Derm Derm: Normal color, Warm and dry - Extremities Extremities: Normal ROM s pain, No edema, No calf tenderness / cord - Neuro Neuro: Alert and oriented X 3, No motor deficit, Normal speech Results - Vitals Vitals: Vital Signs - 24 hr 04/05/20 04/05/20 04/05/20 09:15 11:19 11:36 Temperature 36.8 C 36.8 C Heart Rate 107 H 97 96 Respiratory 18 17 19 Rate Blood Pressure 195/105 H 169/108 H 187/106 H O2 Saturation 98 97 97 Oxygen O2 Source Room air - EKG (time done) 09:49 Rate: Rate (enter#) (137) Rhythm: Sinus tachycardia [place]: Normal Intervals: Normal [place] QRS: Normal Ischemia: Normal ST segments. No: ST elevation c/w ischemia, ST depression - Labs Labs: Laboratory Tests 04/05/20 04/05/20 04/05/20 09:56 09:56 09:56 WBC 8.6 RBC 5.43 Hgb 16.3 Hct 49.2 MCV 90.6 MCH 30.0 MCHC 33.1 RDW 11.7 L Plt Count 215 MPV 9.2 Neut # (Auto) 5.9 Lymph # (Auto) 1.6 [place] # (Auto) 0.7 Eos # (Auto) 0.3 Baso # (Auto) 0.1 Absolute Nucleated RBC 0.00 Nucleated RBC % 0.0 Sodium 136 Potassium 4.0 Chloride 99 L Carbon Dioxide 26 Anion Gap 11.0 BUN 16 Creatinine 1.0 Estimated GFR (MDRD) 78 L Glucose 201 H Calcium 9.6 Total Bilirubin 0.8 AST 35 ALT 47 Alkaline Phosphatase 61 Troponin I High Sens 3.3 Total Protein 8.0 Albumin 4.6 Globulin 3.4 Albumin/Globulin Ratio 1.4 Lipase 25 - Rads (name of study) chest xray Radiology: Prelim report reviewed, See rad report PD MEDICAL DECISION MAKING - ED course Complexity details: considered differential (heart rate up initially but then improved. He was very anxious. Sats are good. Unclear the cause of the anxiety. Denies recent change in meds, stopping of meds. Had steroid dose few days ago and improved for couple days, not symptoms again. ), d/w patient Departure - Departure Disposition: 01 Home, Self Care Clinical Impression: Anxiety Dyspnea Qualifiers: Dyspnea type: shortness of breath Qualified Code(s): R06.02 - Shortness of breath Condition: Stable Record reviewed to determine appropriate education?: Yes Follow-Up: Mt Mitchell MD [Primary Care Provider] - Prescriptions: LORazepam [Ativan] 1 mg PO BID #10 tablet Ipratropium/Albuterol [Combivent Respimat] 2 puffs IH TID #1 aer.w.adap dexAMETHasone [Decadron] 4 mg PO DAILY #5 tablet Comments: Your heart rhythm and EKG are normal. Your chest x-ray is clear without any signs of pneumonia. No signs of heart muscle damage. You may be having some shortness of breath related to airway inflammation as well as spasm. That that was the reason for adding some steroids to your daily regimen for 5 or 6 days and also adding the Combivent inhaler. I rewrote those prescriptions in case you did not have them the previous visit. Use the Combivent inhaler 2 puffs 3 times a day and to that add the out butyryl/Ventolin when needed. Steroid orally daily for the next 5 days to help with airway inflammation. In the short-term you can use lorazepam twice daily as needed for anxiety but I presume that is more stemming from the difficulty with breathing and so primarily focus on that. Follow-up with your primary care if not improved over the next several days. Discharge Date/Time: 04/05/20 11:47
--- NOTE | 2020-04-05 10:01 | XRAY Report ---
PROCEDURE: Chest 1 View X-Ray INDICATIONS: Chest Pain TECHNIQUE: One view of the chest was acquired. COMPARISON: Chest xray 03/31/20 FINDINGS: Surgical changes and devices: Cervical fixation plate. Lungs and pleura: No pleural effusions or pneumothorax. Lungs are clear. Mediastinum: Mediastinal contours appear normal. Heart size is normal. Bones and chest wall: No suspicious bony lesions. Overlying soft tissues appear unremarkable. IMPRESSION: No acute pulmonary process. Reviewed by: Ayse Pierre MD on 04/05/2020 10:00 AM PDT Approved by: Ayse Pierre MD on 04/05/2020 10:00 AM PDT Station ID: [id number]
[2020-04-05 10:02] LABS: BASOPHILS # (AUTO) 0.1 10^3/uL (0.0-0.1); BASOPHILS % (AUTO) 0.7 %; EOSINOPHILS # (AUTO) 0.3 10^3/uL (0.0-0.7); EOSINOPHILS % (AUTO) 3.3 %; HGB - HEMOGLOBIN 16.3 g/dL (14.0-18.0); LYMPHOCYTES # (AUTO) 1.6 10^3/uL (1.5-3.5); LYMPHOCYTES % (AUTO) 18.7 %; MEAN CORPUSCULAR HGB CONC 33.1 g/dL (32.0-36.0); MEAN CORPUSCULAR VOLUME 90.6 fL (80.0-94.0); MEAN PLATELET VOLUME 9.2 fL (7.4-11.4); MONOCYTES # (AUTO) 0.7 10^3/uL (0.0-1.0); MONOCYTES % (AUTO) 8.1 %; NEUTROPHILS # (AUTO) 5.9 10^3/uL (1.5-6.6); NEUTROPHILS % (AUTO) 68.7 %; PLT - PLATELET COUNT 215 10^3/uL (130-450); RED BLOOD COUNT 5.43 10^6/uL (4.70-6.10); RED CELL DISTRIBUTION WIDTH 11.7 % (12.0-15.0); WHITE BLOOD COUNT 8.6 x10^3/uL (4.8-10.8)
[2020-04-05 10:19] LABS: ALBUMIN 4.6 g/dL (3.2-5.5); ALBUMIN/GLOBULIN RATIO 1.4 (1.0-2.2); BILIRUBIN,TOTAL 0.8 mg/dL (0.2-1.0); CALCIUM 9.6 mg/dL (8.5-10.3)
[2020-04-05] MEDS ORDERED: diazePAM INJ 5 MG/ML SYRINGE IM STA (10:34)
[2020-04-05] MEDS ORDERED: LORazepam 1 MG TABLET PO STA (11:08)
[2020-04-05] MEDS ORDERED: MAG HYDROX/AL HYDROX/SIMETH 30 ML UDC PO STA (11:09)
[2020-04-05 11:37] VITALS: BP 187/106
== END 2020-04-05 11:47 | disposition home or self-care (01) ==
LOC: ED 09:08
DX: F41.9 Anxiety disorder, unspecified (principal); J45.909 Unspecified asthma, uncomplicated; Z87.891 Personal history of nicotine dependence; R00.0 Tachycardia, unspecified; I10 Essential (primary) hypertension; E11.9 Type 2 diabetes mellitus without complications; Z79.84 Long term (current) use of oral hypoglycemic drugs; Z79.82 Long term (current) use of aspirin
CPT/HCPCS: 36415; 71045; 80053; 83690; 84484; 85025; 93005; 96372; 99284; A9270; J8499

== ENCOUNTER 2020-05-10 17:35 | Outpatient (CLI) | payer MEDICAID ==
--- NOTE | 2020-05-11 09:48 | XRAY Report ---
PROCEDURE: Cervical Spine 2 View INDICATIONS: LUE weakness, neck pain TECHNIQUE: 3 view(s) of the cervical spine were acquired. COMPARISON: None. FINDINGS: Bones: Status post C7-T1 ACDF. Orthopedic hardware is intact. No lucencies at the bone hardware inte rface. No fractures or dislocations to the T1 level. The lateral masses of C1 appear intact on the o dontoid view. No suspicious bony lesions. Soft tissues: No prevertebral soft tissue swelling. IMPRESSION: 1. C7-T1 ACDF. 2. No acute osseous lesion. If there is continued clinical concern for pathology, then MRI should be considered for further evaluation. Reviewed by: Keke Emerson MD, PhD on 05/11/2020 9:46 AM PST Approved by: Keke Emerson MD, PhD on 05/11/2020 9:46 AM [facility] Station ID: [id number]
== END 2020-05-10 17:36 | disposition home or self-care (01) ==
LOC: DI 17:35
PROVIDERS: ATTEND Physician Assistant Medical
DX: M54.2 Cervicalgia (principal); Z98.1 Arthrodesis status
CPT/HCPCS: 72040

== ENCOUNTER 2020-06-04 11:49 | Emergency (ER) | payer MEDICAID ==
--- NOTE | 2020-06-04 13:11 | ED Physician Documentation ---
PD HPI NVD - Stated complaint Stated Complaint: NAUSEA - Chief complaint Chief Complaint: General - History obtained from History obtained from: Patient - History of Present Illness Timing - onset: How many days ago (3) Timing - duration: Days (3) Timing - details: Abrupt onset, Still present, Waxing and waning Associated symptoms: Abdominal pain (some discomfort in epigastric area.), Chest pain (noted more with eating). No: Fever Contributing factors: No: Sick contact, Travel, Recent antibiotics, Alcohol use Similar symptoms before: No diagnosis (has intermittent chest pain with anxiety in the past.) Review of Systems Constitutional: denies: Fever, Chills Nose: denies: Rhinorrhea / runny nose, Congestion Throat: reports: Dental pain / toothache (right upper tooth for several days, and was taking Tylenol often for the pain. Also on chronic pain meds [place] 10/325 for past 2 weeks, dose increase from 5 mg regularly prior to that.). denies: Sore throat Respiratory: denies: Cough GI: reports: Abdominal Pain (epigastric), Nausea. denies: Abdominal Swelling, Vomiting, Diarrhea PD PAST MEDICAL HISTORY - Past Medical History Past Medical History: Yes Cardiovascular: Hypertension, High cholesterol, Coronary artery disease, Angina Respiratory: Asthma Neuro: Headaches Endocrine/Autoimmune: Type 2 diabetes GI: None : None HEENT: None Psych: Depression, Anxiety, ADD/ADHD Musculoskeletal: Chronic back pain, Other Derm: None - Past Surgical History Past Surgical History: Yes Ortho: Spine surgery Cardiovascular: Cardiac catheterization - Present Medications Home Medications: Ambulatory Orders Medication Instructions Recorded Confirmed Metoprolol Succinate 50 mg PO BID 01/04/18 06/04/20 Aspirin Chewable [St Oneil 81 mg PO DAILY #15 tablet 02/03/18 06/04/20 Aspirin] PARoxetine [Paxil] 10 mg DAILY 09/05/19 06/04/20 Ipratropium/Albuterol [Combivent 2 puffs IH TID #1 aer.w.adap 04/05/20 06/04/20 Respimat] Albuterol Sulfate [Albuterol 1 - 2 puffs IH Q4HR PRN 06/04/20 06/04/20 Sulfate Hfa] Cephalexin [Keflex] 500 mg PO TID #15 capsule 06/04/20 Famotidine [Pepcid] 20 mg PO DAILY #20 tablet 06/04/20 HYDROcodone/ACET 10/325 [[place] 10 1 each PO Q6H 06/04/20 06/04/20 mg/325 mg] LORazepam [Ativan] 1 mg PO BID PRN 06/04/20 06/04/20 Ondansetron Odt [Zofran] 4 mg TL Q6H PRN #25 tablet 06/04/20 - Allergies Allergies/Adverse Reactions: Allergies Allergy/AdvReac Type Severity Reaction Status Date / Time droperidol AdvReac Unknown Verified 04/05/20 09:17 - Social History Does the pt smoke?: Yes Smoking Status: Current every day smoker Does the pt drink ETOH?: No Does the pt have substance abuse?: No - Immunizations Immunizations are current?: Yes - POLST Patient has POLST: No POLST Status: Full Code PD ED PE NORMAL - Vitals Vital signs reviewed: Yes - General General: Alert and oriented X 3, No acute distress, Well developed/nourished - HEENT HEENT: Pharynx benign. No: Dentition benign (marked caries diffusely. Has redness and some swelling of gum right upper incisor, without fluctuance. ) - Neck Neck: Supple, no meningeal sign, No adenopathy - Cardiac Cardiac: RRR, No murmur - Respiratory Respiratory: Clear bilaterally - Abdomen Abdomen: Normal bowel sounds, Soft, Non distended, Other (mild tender epigastric without guarding. ) - Back Back: No CVA TTP - Derm Derm: Normal color, Warm and dry - Extremities Extremities: No deformity, No tenderness to palpate, Normal ROM s pain, No edema, No calf tenderness / cord - Neuro Neuro: Alert and oriented X 3, No motor deficit, No sensory deficit Results - Vitals Vitals: Vital Signs - 24 hr 06/04/20 06/04/20 06/04/20 12:20 12:58 13:29 Temperature 36.6 C 37 C Heart Rate 104 H 94 99 Respiratory 14 18 16 Rate Blood Pressure 171/96 H 182/112 H 211/119 H O2 Saturation 98 97 99 06/04/20 06/04/20 06/04/20 13:32 14:09 15:09 Temperature 37.1 C Heart Rate 87 88 Respiratory 15 16 Rate Blood Pressure 157/99 H 142/87 H 135/91 H O2 Saturation 98 97 06/04/20 15:26 Temperature 36.6 C Heart Rate 90 Respiratory 22 Rate Blood Pressure 135/91 H O2 Saturation 99 Oxygen O2 Source Room air - Labs Labs: Laboratory Tests 06/04/20 06/04/20 14:10 14:10 WBC 7.3 RBC 4.95 Hgb 14.8 Hct 45.6 MCV 92.1 MCH 29.9 MCHC 32.5 RDW 13.5 Plt Count 168 MPV 9.0 Neut # (Auto) 5.7 Lymph # (Auto) 0.9 L [place] # (Auto) 0.4 Eos # (Auto) 0.2 Baso # (Auto) 0.0 Absolute Nucleated RBC 0.00 Nucleated RBC % 0.0 Sodium 135 Potassium 4.5 Chloride 99 L Carbon Dioxide 27 Anion Gap 9.0 BUN 13 Creatinine 0.9 Estimated GFR (MDRD) 89 Glucose 147 H Calcium 9.5 Magnesium 2.0 Total Bilirubin 0.9 AST 25 ALT 21 Alkaline Phosphatase 61 Total Protein 7.7 Albumin 4.7 Globulin 3.0 Albumin/Globulin Ratio 1.6 Acetaminophen 16 PD MEDICAL DECISION MAKING - ED course Complexity details: re-evaluated patient (improved with antacids.), considered differential (history of anxiety and nonspecific chest pains. Having symptoms that would seem c/w gastritis now. Initial nausea may have been from meds taken - extra Tylenol ? or perhaps from recently icnreased dose hydrocodone. Has dental infection but not draining. ), d/w patient Departure - Departure Disposition: 01 Home, Self Care Clinical Impression: Nausea alone, Dental infection Chest pain Qualifiers: Chest pain type: unspecified Qualified Code(s): R07.9 - Chest pain, unspecified Gastritis Qualifiers: Gastritis type: unspecified gastritis Chronicity: acute Gastritis bleeding: without bleeding Qualified Code(s): K29.00 - Acute gastritis without bleeding Condition: Stable Record reviewed to determine appropriate education?: Yes Follow-Up: Mt Mitchell MD [Primary Care Provider] - Prescriptions: Cephalexin [Keflex] 500 mg PO TID #15 capsule Famotidine [Pepcid] 20 mg PO DAILY #20 tablet Ondansetron Odt [Zofran] 4 mg TL Q6H PRN #25 tablet PRN Reason: Nausea / Vomiting Comments: Your nausea and chest pain may be coming from an irritation of the esophagus or stomach. Alternatively could be a side effect of your pain medicine with the recently increased dose. For now I would try ondansetron if needed for nausea. I would also add famotidine acid reducing medicine daily for 2 to 3 weeks. Cephalexin antibiotic 3 times a day for 5 days for the tooth infection. For now continue with your current pain medicines for a day or 2 until your tooth is improved and then try cutting down the pain medicine to half a tablet instead and see if that helps overall with the nausea. Follow-up with your primary care and dentist as planned. Discharge Date/Time: 06/04/20 15:26
[2020-06-04] MEDS ORDERED: oxyCODONE 5 MG TABLET PO STA (13:36)
[2020-06-04] MEDS ORDERED: ONDANSETRON ODT 4 MG TABLET TL STA (13:37)
[2020-06-04] MEDS ORDERED: MAG HYDROX/AL HYDROX/SIMETH 30 ML UDC PO STA (13:37)
[2020-06-04 14:26] LABS: BASOPHILS % (AUTO) 0.4 %; EOSINOPHILS # (AUTO) 0.2 10^3/uL (0.0-0.7); EOSINOPHILS % (AUTO) 2.6 %; HGB - HEMOGLOBIN 14.8 g/dL (14.0-18.0); LYMPHOCYTES # (AUTO) 0.9 10^3/uL (1.5-3.5); LYMPHOCYTES % (AUTO) 12.7 %; MEAN CORPUSCULAR HEMOGLOBIN 29.9 pg (27.0-31.0); MEAN CORPUSCULAR HGB CONC 32.5 g/dL (32.0-36.0); MEAN CORPUSCULAR VOLUME 92.1 fL (80.0-94.0); MONOCYTES # (AUTO) 0.4 10^3/uL (0.0-1.0); MONOCYTES % (AUTO) 5.9 %; NEUTROPHILS # (AUTO) 5.7 10^3/uL (1.5-6.6); NEUTROPHILS % (AUTO) 78.3 %; PLT - PLATELET COUNT 168 10^3/uL (130-450); RED BLOOD COUNT 4.95 10^6/uL (4.70-6.10); RED CELL DISTRIBUTION WIDTH 13.5 % (12.0-15.0); WHITE BLOOD COUNT 7.3 x10^3/uL (4.8-10.8)
[2020-06-04 14:33] LABS: ALBUMIN 4.7 g/dL (3.2-5.5); ALBUMIN/GLOBULIN RATIO 1.6 (1.0-2.2); BILIRUBIN,TOTAL 0.9 mg/dL (0.2-1.0); CALCIUM 9.5 mg/dL (8.5-10.3); CREATININE 0.9 mg/dL (0.6-1.2); TOTAL PROTEIN 7.7 g/dL (6.7-8.2)
[2020-06-04] MEDS ORDERED: cephALEXin 250 MG CAPSULE PO STA (15:03)
[2020-06-04 15:10] VITALS: BP 135/91
== END 2020-06-04 15:26 | disposition home or self-care (01) ==
LOC: ED 11:49
DX: K29.00 Acute gastritis without bleeding (principal); K04.7 Periapical abscess without sinus; K02.9 Dental caries, unspecified; R07.9 Chest pain, unspecified; I10 Essential (primary) hypertension; E11.9 Type 2 diabetes mellitus without complications; F17.200 Nicotine dependence, unspecified, uncomplicated; Z79.82 Long term (current) use of aspirin
CPT/HCPCS: 36415; 80053; 80307; 83735; 85025; 99283; A9270; Q0162

== ENCOUNTER 2020-06-07 23:20 | Emergency (ER) | payer MEDICAID ==
--- NOTE | 2020-06-07 23:37 | ED Physician Documentation ---
PD HPI CHEST PAIN - Stated complaint Stated Complaint: SOA/CP - Chief complaint Chief Complaint: Resp - History obtained from History obtained from: Patient - History of Present Illness Timing - onset: Today Timing - onset during: Rest Timing - duration: Minutes Timing - details: Abrupt onset, Still present Quality: Other (feels like he just cant breath out as well.) Location: Substernal Worsened by: Inspiration Associated symptoms: Shortness of air Similar symptoms before: Has not had sx before Recently seen: Emergency Dept - Additional information Additional information: 50-year-old male with a history of two-vessel coronary disease that is nonoperable, hypertension, type 2 diabetes chronic shoulder pain and COPD was out in his yard today doing a burn pile and this evening when he went to go to bed he developed some shortness of breath that did not respond to his inhaler and seemed odd in that it was difficult to breath out. Review of Systems Constitutional: denies: Fever, Chills, Myalgias Eyes: denies: Decreased vision Ears: denies: Ear pain Nose: denies: Rhinorrhea / runny nose, Congestion Throat: denies: Sore throat Cardiac: denies: Chest pain / pressure, Palpitations, Pedal edema, Calf pain Respiratory: reports: Dyspnea. denies: Cough, Wheezing GI: reports: Nausea (improved) : denies: Dysuria, Frequency Skin: denies: Rash Musculoskeletal: reports: Back pain, Joint pain PD PAST MEDICAL HISTORY - Past Medical History Cardiovascular: Hypertension, High cholesterol, Coronary artery disease, Angina Respiratory: Asthma Neuro: Headaches Endocrine/Autoimmune: Type 2 diabetes GI: None : None HEENT: None Psych: Depression, Anxiety, ADD/ADHD Musculoskeletal: Chronic back pain, Other Derm: None - Past Surgical History Past Surgical History: Yes Ortho: Spine surgery Cardiovascular: Cardiac catheterization - Present Medications Home Medications: Ambulatory Orders Medication Instructions Recorded Confirmed Metoprolol Succinate 50 mg PO BID 01/04/18 06/07/20 Aspirin Chewable [St Oneil 81 mg PO DAILY #15 tablet 02/03/18 06/07/20 Aspirin] PARoxetine [Paxil] 10 mg DAILY 09/05/19 06/07/20 Ipratropium/Albuterol [Combivent 2 puffs IH TID #1 aer.w.adap 04/05/20 06/07/20 Respimat] Albuterol Sulfate [Albuterol 1 - 2 puffs IH Q4HR PRN 06/04/20 06/07/20 Sulfate Hfa] Cephalexin [Keflex] 500 mg PO TID #15 capsule 06/04/20 06/07/20 Famotidine [Pepcid] 20 mg PO DAILY #20 tablet 06/04/20 06/07/20 HYDROcodone/ACET 10/325 [[place] 10 1 each PO Q6H 06/04/20 06/07/20 mg/325 mg] Ondansetron Odt [Zofran] 4 mg TL Q6H PRN #25 tablet 06/04/20 06/07/20 Gabapentin [Neurontin] 300 mg PO TID 06/07/20 06/07/20 Sucralfate [Carafate] 1 gm PO ACHS #60 tablet 06/08/20 - Allergies Allergies/Adverse Reactions: Allergies Allergy/AdvReac Type Severity Reaction Status Date / Time droperidol AdvReac Unknown Verified 06/07/20 23:30 - Social History Does the pt smoke?: Yes Smoking Status: Current every day smoker Does the pt drink ETOH?: No Does the pt have substance abuse?: No - Immunizations Immunizations are current?: Yes - POLST Patient has POLST: No POLST Status: Full Code PD ED PE NORMAL - Vitals Vital signs reviewed: Yes (hypertensive) - General General: Alert and oriented X 3, No acute distress, Well developed/nourished - HEENT HEENT: PERRL, EOMI - Neck Neck: Supple, no meningeal sign, No bony TTP - Cardiac Cardiac: RRR, No murmur - Respiratory Respiratory: No respiratory distress, Clear bilaterally - Abdomen Abdomen: Normal bowel sounds, Soft, Non tender, Non distended, No organomegaly - Back Back: No CVA TTP, No spinal TTP - Derm Derm: Normal color, Warm and dry, No rash - Extremities Extremities: No deformity, No edema - Neuro Neuro: Alert and oriented X 3, supervisor salvage 2-12 intact, No motor deficit, No sensory deficit, Normal speech Eye Opening: Spontaneous Motor: Obeys Commands Verbal: Oriented GCS Score: 15 - Psych Psych: Normal mood, Normal affect Results - Vitals Vitals: Vital Signs - 24 hr 06/07/20 06/07/20 06/07/20 23:27 23:29 23:51 Temperature 36.5 C 36.5 C 36.5 C Heart Rate 90 84 78 Respiratory 18 18 18 Rate Blood Pressure 180/108 H 158/98 H 152/88 H O2 Saturation 100 100 100 06/08/20 06/08/20 06/08/20 00:15 00:30 01:00 Temperature 36.5 C 36.5 C Heart Rate 72 72 Respiratory 17 16 17 Rate Blood Pressure 142/80 H 145/78 H O2 Saturation 100 100 06/08/20 06/08/20 01:30 01:31 Temperature 36.5 C 36.5 C Heart Rate 70 70 Respiratory 16 16 Rate Blood Pressure 142/79 H 142/79 H O2 Saturation 100 100 Oxygen O2 Source Room air - EKG (time done) 2322 Rate: Rate (enter#) (87) Rhythm: NSR Compare to prior EKG: Unchanged from prior EKG Computer interpretation: Disagree with computer (I do not see ST depression in the inferior leads. There is subtle- at best depression in aVF only ) - Labs Labs: Laboratory Tests 06/07/20 06/07/20 06/07/20 23:32 23:32 23:32 WBC 7.0 RBC 4.43 L Hgb 13.5 L Hct 40.6 L MCV 91.6 MCH 30.5 MCHC 33.3 RDW 13.6 Plt Count 183 MPV 9.4 Neut # (Auto) 4.0 Lymph # (Auto) 2.0 Cameron # (Auto) 0.6 Eos # (Auto) 0.3 Baso # (Auto) 0.1 Absolute Nucleated RBC 0.00 Nucleated RBC % 0.0 Sodium 137 Potassium 3.7 Chloride 102 Carbon Dioxide 24 Anion Gap 11.0 BUN 18 Creatinine 1.0 Estimated GFR (MDRD) 78 L Glucose 157 H Calcium 9.4 Total Bilirubin 0.3 AST 23 ALT 19 Alkaline Phosphatase 53 Troponin I High Sens 5.5 Total Protein 7.2 Albumin 4.4 Globulin 2.8 Albumin/Globulin Ratio 1.6 Lipase 33 PD MEDICAL DECISION MAKING - ED course Complexity details: reviewed old records, reviewed results, re-evaluated patient, considered differential, d/w patient ED course: 50-year-old male with a history of nonoperable coronary artery disease arrives to the emergency department somewhat anxious about his breathing and this seems to resolve while he is here and lungs sound clear look clear on the x-ray electrocardiogram troponin and electrolytes are all normal. He appears normally hydrated. While he is here he develops epigastric pain and I do have a chance to discuss with him how he is using his medications and he is taking some famotidine when he starts to feel the pain. I have asked him to take this twice per day on a regular basis and we will add in the Carafate. He is again administered a GI cocktail consisting of viscous lidocaine Mylanta and Carafate and has prompt and effective relief of his pain. Departure - Departure Disposition: 01 Home, Self Care Clinical Impression: Gastritis Qualifiers: Gastritis type: unspecified gastritis Chronicity: acute Gastritis bleeding: without bleeding Qualified Code(s): K29.00 - Acute gastritis without bleeding Condition: Stable Instructions: ED PUD Vs Gastritis Follow-Up: Mt Mitchell MD [Primary Care Provider] - Prescriptions: Sucralfate [Carafate] 1 gm PO ACHS #60 tablet Comments: Today on your evaluation your diagnostics all appear normal. Your symptoms indicate you continue to have some issue with a gastritis or ulcer. The most effective way to treat this is to use your acid reducing medication on a regular basis in my recommendation is to take it twice per day and to use the Carafate to help heal up the inflammation. Discharge Date/Time: 06/08/20 01:31
[2020-06-07 23:56] LABS: BASOPHILS # (AUTO) 0.1 10^3/uL (0.0-0.1); BASOPHILS % (AUTO) 0.7 %; EOSINOPHILS # (AUTO) 0.3 10^3/uL (0.0-0.7); EOSINOPHILS % (AUTO) 4.4 %; HGB - HEMOGLOBIN 13.5 g/dL (14.0-18.0); LYMPHOCYTES % (AUTO) 28.9 %; MEAN CORPUSCULAR HEMOGLOBIN 30.5 pg (27.0-31.0); MEAN CORPUSCULAR HGB CONC 33.3 g/dL (32.0-36.0); MEAN CORPUSCULAR VOLUME 91.6 fL (80.0-94.0); MEAN PLATELET VOLUME 9.4 fL (7.4-11.4); MONOCYTES # (AUTO) 0.6 10^3/uL (0.0-1.0); MONOCYTES % (AUTO) 8.5 %; NEUTROPHILS % (AUTO) 57.2 %; PLT - PLATELET COUNT 183 10^3/uL (130-450); RED BLOOD COUNT 4.43 10^6/uL (4.70-6.10); RED CELL DISTRIBUTION WIDTH 13.6 % (12.0-15.0)
[2020-06-08 00:06] LABS: ALBUMIN 4.4 g/dL (3.2-5.5); ALBUMIN/GLOBULIN RATIO 1.6 (1.0-2.2); BILIRUBIN,TOTAL 0.3 mg/dL (0.2-1.0); CALCIUM 9.4 mg/dL (8.5-10.3); TOTAL PROTEIN 7.2 g/dL (6.7-8.2)
[2020-06-08] MEDS ORDERED: LIDOCAINE VISCOUS 2% 15 ML UDC MM STA (00:39)
[2020-06-08] MEDS ORDERED: SUCRALFATE 1 GM/10 ML UDC PO STA (00:39)
[2020-06-08] MEDS ORDERED: MAG HYDROX/AL HYDROX/SIMETH 30 ML UDC PO STA (00:39)
[2020-06-08 01:31] VITALS: BP 142/79
--- NOTE | 2020-06-08 10:19 | XRAY Report ---
PROCEDURE: Chest 1 View X-Ray INDICATIONS: soa TECHNIQUE: One view of the chest was acquired. COMPARISON: Chest x-ray 04/05/2020 FINDINGS: Surgical changes and devices: Cervical fixation plate Lungs and pleura: No pleural effusions or pneumothorax. Lungs are clear. Mediastinum: Mediastinal contours appear normal. Heart size is enlarged. Bones and chest wall: No suspicious bony lesions. Overlying soft tissues appear unremarkable. IMPRESSION: No acute pulmonary process. Reviewed by: Ayse Pierre MD on 06/08/2020 10:18 AM [facility] Approved by: Ayse Pierre MD on 06/08/2020 10:18 AM [facility] Station ID: [id number]
== END 2020-06-08 01:31 | disposition home or self-care (01) ==
LOC: ED 23:20
DX: K29.00 Acute gastritis without bleeding (principal); I25.10 Atherosclerotic heart disease of native coronary artery without angina pectoris; Z98.61 Coronary angioplasty status; I10 Essential (primary) hypertension; E11.9 Type 2 diabetes mellitus without complications; J44.9 Chronic obstructive pulmonary disease, unspecified; F17.200 Nicotine dependence, unspecified, uncomplicated; Z79.82 Long term (current) use of aspirin
CPT/HCPCS: 36415; 71045; 80053; 83690; 84484; 85025; 93005; 99284; A9270

== ENCOUNTER 2020-06-17 13:11 | Emergency (ER) | payer MEDICAID ==
[2020-06-17] MEDS ORDERED: CYCLOBENZAPRINE 10 MG TABLET PO STA (14:06)
[2020-06-17] MEDS ORDERED: KETOROLAC 60 MG/2 ML VIAL IM STA (14:06)
[2020-06-17] MEDS ORDERED: HYDROmorphone 1 MG/ML CARPUJECT IM STA (14:06)
--- NOTE | 2020-06-17 14:46 | ED Physician Documentation ---
History of Present Illness - Stated complaint Stated Complaint: NECK PX - Chief complaint Chief Complaint: Trauma Hd/Nk - History obtained from History obtained from: Patient - Additonal information Additional information: Patient comes emergency department chief complaint of increased pain in his left neck for the last 3 days and tingling and dropping things today. Patient states that he has longstanding neck issues and has had extensive work-up and follow-up for this recently, including recent MRI. The patient has been referred to spine surgeon, but states that only a few places take his insurance, including the medical student clinic at [facility] and a surgeon in [place] at [facility]. The patient states he is in the process of getting an appointment. Pt denies loss of bowel or bladder function. No acute injury. Review of Systems Ten Systems: 10 systems reviewed and negative Constitutional: reports: Reviewed and negative Eyes: reports: Reviewed and negative Ears: reports: Reviewed and negative Nose: reports: Reviewed and negative Throat: reports: Reviewed and negative Cardiac: reports: Reviewed and negative Respiratory: reports: Reviewed and negative GI: reports: Reviewed and negative : reports: Reviewed and negative Skin: reports: Reviewed and negative Musculoskeletal: reports: Neck pain Neurologic: reports: Focal weakness, Numbness Psychiatric: reports: Reviewed and negative Endocrine: reports: Reviewed and negative Immunocompromised: reports: Reviewed and negative PD PAST MEDICAL HISTORY - Past Medical History Past Medical History: Yes Cardiovascular: Hypertension, High cholesterol, Coronary artery disease, Angina Respiratory: Asthma Neuro: Headaches Endocrine/Autoimmune: Type 2 diabetes GI: None : None HEENT: None Psych: Depression, Anxiety, ADD/ADHD Musculoskeletal: Chronic back pain, Other Derm: None - Past Surgical History Past Surgical History: Yes Ortho: Spine surgery Cardiovascular: Cardiac catheterization - Present Medications Home Medications: Ambulatory Orders Medication Instructions Recorded Confirmed Metoprolol Succinate 50 mg PO BID 01/04/18 06/07/20 Aspirin Chewable [St Oneil 81 mg PO DAILY #15 tablet 02/03/18 06/07/20 Aspirin] PARoxetine [Paxil] 10 mg DAILY 09/05/19 06/07/20 Ipratropium/Albuterol [Combivent 2 puffs IH TID #1 aer.w.adap 04/05/20 06/07/20 Respimat] Albuterol Sulfate [Albuterol 1 - 2 puffs IH Q4HR PRN 06/04/20 06/07/20 Sulfate Hfa] Cephalexin [Keflex] 500 mg PO TID #15 capsule 06/04/20 06/07/20 Famotidine [Pepcid] 20 mg PO DAILY #20 tablet 06/04/20 06/07/20 HYDROcodone/ACET 10/325 [[place] 10 1 each PO Q6H 06/04/20 06/07/20 mg/325 mg] Ondansetron Odt [Zofran] 4 mg TL Q6H PRN #25 tablet 06/04/20 06/07/20 Gabapentin [Neurontin] 300 mg PO TID 06/07/20 06/07/20 Sucralfate [Carafate] 1 gm PO ACHS #60 tablet 06/08/20 Cyclobenzaprine [Flexeril] 10 mg PO TID PRN #20 tablet 06/17/20 HYDROcod/ACETAM 5/325 [[place] 5/325] 1 - 2 ea PO Q6H PRN #15 tablet 06/17/20 - Allergies Allergies/Adverse Reactions: Allergies Allergy/AdvReac Type Severity Reaction Status Date / Time droperidol AdvReac Unknown Verified 06/17/20 13:19 - Social History Does the pt smoke?: Yes Smoking Status: Current every day smoker Does the pt drink ETOH?: No Does the pt have substance abuse?: No - Immunizations Immunizations are current?: Yes - POLST Patient has POLST: No POLST Status: Full Code PD ED PE NORMAL - Vitals Vital signs reviewed: Yes - General General: Alert and oriented X 3, No acute distress - HEENT HEENT: Atraumatic, PERRL, EOMI, Moist mucous membranes - Neck Neck: Supple, no meningeal sign, No bony TTP, Other (Muscle spasm and tenderness extending the entire length of pt's L neck musculature. No bony step-off.) - Cardiac Cardiac: RRR, No murmur - Respiratory Respiratory: Clear bilaterally - Abdomen Abdomen: Normal bowel sounds, Soft, Non tender, Non distended - Derm Derm: Warm and dry - Extremities Extremities: No deformity, No edema - Neuro Neuro: Alert and oriented X 3, Other (5+ strength bilateral UE, mildly decreased on L, but with overall good in store representative strength. Pt objectively noted to use L arm/hand freely and seemingly normally.) - Psych Psych: Normal mood, Normal affect Results - Vitals Vitals: Vital Signs - 24 hr 06/17/20 06/17/20 13:13 15:12 Temperature 36.6 C 36.8 C Heart Rate 119 H 96 Respiratory 20 16 Rate Blood Pressure 146/112 H 139/84 H O2 Saturation 96 99 Oxygen O2 Source Room air PD MEDICAL DECISION MAKING - ED course Complexity details: considered differential, d/w patient ED course: Pt was treated symptomatically in the ED. The pt has long-standing neck issues, and clinically, was found to have L neck muscle spasm. He recently had an MRI without spinal cord pathology, and had no recent trauma to raise concern for development of such a condition. At this point in time, I suspect peripheral nerve compression as the cause of the pt's sx, and I did not feel further emergent imaging would be indicated. He has been prescribed analgesia and a muscle relaxant, and has been advised to be aggressive about seeking follow-up. We have discussed the usual indications for return. Departure - Departure Disposition: 01 Home, Self Care Condition: Stable Instructions: ED Cervical Radiculopathy Prescriptions: Cyclobenzaprine [Flexeril] 10 mg PO TID PRN #20 tablet PRN Reason: Spasms HYDROcod/ACETAM 5/325 [[place] 5/325] 1 - 2 ea PO Q6H PRN #15 tablet PRN Reason: Pain Comments: There is no evidence of an acute condition of your neck that would be impacting your spinal cord. Most likely, the spasm of your neck muscles is pushing on the nerves as they exit your spine, causing some degree of dysfunction. This can manifest as numbness or tingling, or can manifest as weakness. Generally, the symptoms are temporary, and resolve with resolution of the muscle spasm. However, it is very important that you continue to pursue follow-up with the micro computer specialist, as you have already been instructed to do. If your symptoms are not better in the next several days, it is very important that you make an appointment to see your primary care physician to further discuss expediting your follow-up. If need be, you should go to the medical student clinic at [facility], as they will likely be able to get you in faster than the clinic in [place]. Please take the medication for pain and muscle relaxation to help relieve your symptoms. Discharge Date/Time: 06/17/20 15:19
[2020-06-17 15:19] VITALS: BP 139/84
== END 2020-06-17 15:19 | disposition home or self-care (01) ==
LOC: ED 13:11
DX: M54.2 Cervicalgia (principal); M62.838 Other muscle spasm; I10 Essential (primary) hypertension; E11.9 Type 2 diabetes mellitus without complications; F17.200 Nicotine dependence, unspecified, uncomplicated; Z79.82 Long term (current) use of aspirin
CPT/HCPCS: 96372; 99283; 99285; A9270; J1170

== ENCOUNTER 2020-07-12 13:17 | Emergency (ER) | payer MEDICAID ==
[2020-07-12 13:49] LABS: BASOPHILS # (AUTO) 0.1 10^3/uL (0.0-0.1); BASOPHILS % (AUTO) 0.6 %; EOSINOPHILS # (AUTO) 0.3 10^3/uL (0.0-0.7); HGB - HEMOGLOBIN 16.3 g/dL (14.0-18.0); LYMPHOCYTES # (AUTO) 1.7 10^3/uL (1.5-3.5); LYMPHOCYTES % (AUTO) 19.3 %; MEAN CORPUSCULAR HEMOGLOBIN 30.3 pg (27.0-31.0); MEAN CORPUSCULAR HGB CONC 33.3 g/dL (32.0-36.0); MEAN CORPUSCULAR VOLUME 90.9 fL (80.0-94.0); MONOCYTES # (AUTO) 0.7 10^3/uL (0.0-1.0); MONOCYTES % (AUTO) 7.3 %; NEUTROPHILS # (AUTO) 6.2 10^3/uL (1.5-6.6); NEUTROPHILS % (AUTO) 69.6 %; PLT - PLATELET COUNT 240 10^3/uL (130-450); RED BLOOD COUNT 5.38 10^6/uL (4.70-6.10); RED CELL DISTRIBUTION WIDTH 13.6 % (12.0-15.0); WHITE BLOOD COUNT 8.9 x10^3/uL (4.8-10.8)
--- NOTE | 2020-07-12 13:55 | XRAY Report ---
PROCEDURE: Chest 1 View X-Ray INDICATIONS: Chest pain TECHNIQUE: One view of the chest was acquired. COMPARISON: 06/08/2020 FINDINGS: Surgical changes and devices: Fusion hardware in lower cervical spine is again seen.. Lungs and pleura: No pleural effusions or pneumothorax. Lungs are clear. Mediastinum: Mediastinal contours appear normal. Heart size is normal. Bones and chest wall: No suspicious bony lesions. Overlying soft tissues appear unremarkable. IMPRESSION: No acute cardiopulmonary pathology. Reviewed by: Rafat Ann MD on 07/12/2020 1:54 PM PST Approved by: Rafat Ann MD on 07/12/2020 1:54 PM PST Station ID: [id number]
--- NOTE | 2020-07-12 14:09 | ED Physician Documentation ---
History of Present Illness - Stated complaint Stated Complaint: NECK & CHEST PX - Chief complaint Chief Complaint: Cardiac - History obtained from History obtained from: Patient - Additonal information Additional information: 50-year-old male who has a history of hypertension, coronary artery disease presents to the emergency department for evaluation of chest pain, left arm pain and neck pain. Chest pain began about 6 hours ago. sharp, pressure like. Radiates to the left arm He has a history of coronary artery disease and has been told that he has 2 vessels with significant stenosis but due to location is unable to have them stented. He is a daily smoker. He takes metoprolol and aspirin. He denies nausea vomiting diaphoresis. He is followed by fur drummer in [facility] This gentleman also reports history of chronic and ongoing left neck shoulder and arm pain that has resulted in weakness of this left arm. He underwent an MRI of the neck about 4 months ago at [facility]. He reports that the findings that showed " lots of problems". He has been referred to a neurologist at [facility]. That appointment is pending 08/03/2020. He states that the left arm has become progressively weaker and he finds himself dropping things more often. However this is not a new or or acute concern today. pmh: HTN, CAD SOC: + tobacco meds: 81 asa, Metoprolol, sertraline, gabapentin 600 mg 3 times daily, [place] 10 mg 3 times daily as needed, omeprazole as needed, albuterol as needed Review of Systems Constitutional: reports: Reviewed and negative Ears: reports: Reviewed and negative Nose: reports: Reviewed and negative Throat: reports: Reviewed and negative Cardiac: reports: Chest pain / pressure. denies: Pedal edema, Calf pain Respiratory: denies: Dyspnea, Cough GI: reports: Reviewed and negative : reports: Reviewed and negative Skin: reports: Reviewed and negative Musculoskeletal: reports: Neck pain, Extremity pain Neurologic: reports: Focal weakness (left arm). denies: Numbness, Difficulty speaking, Near syncope, Syncope, Seizure, Altered mental status, Headache, LOC Psychiatric: reports: Reviewed and negative PD PAST MEDICAL HISTORY - Past Medical History Cardiovascular: Hypertension, High cholesterol, Coronary artery disease, Angina Respiratory: Asthma Neuro: Headaches Endocrine/Autoimmune: Type 2 diabetes GI: None : None HEENT: None Psych: Depression, Anxiety, ADD/ADHD Musculoskeletal: Chronic back pain, Other Derm: None - Past Surgical History Past Surgical History: Yes Ortho: Spine surgery Cardiovascular: Cardiac catheterization - Present Medications Home Medications: Ambulatory Orders Medication Instructions Recorded Confirmed Metoprolol Succinate 50 mg PO BID 01/04/18 07/12/20 Aspirin Chewable [St Oneil 81 mg PO DAILY #15 tablet 02/03/18 07/12/20 Aspirin] Albuterol Sulfate [Albuterol 1 - 2 puffs IH Q4HR PRN 06/04/20 07/12/20 Sulfate Hfa] HYDROcodone/ACET 10/325 [[place] 10 1 each PO Q6H 06/04/20 06/07/20 mg/325 mg] Ondansetron Odt [Zofran] 4 mg TL Q6H PRN #25 tablet 06/04/20 07/12/20 Gabapentin [Neurontin] 600 mg PO TID 06/07/20 07/12/20 Sertraline [Zoloft] 50 mg PO DAILY 07/12/20 07/12/20 - Allergies Allergies/Adverse Reactions: Allergies Allergy/AdvReac Type Severity Reaction Status Date / Time droperidol AdvReac Unknown Verified 07/12/20 13:21 - Social History Does the pt smoke?: Yes Smoking Status: Current every day smoker Does the pt drink ETOH?: No Does the pt have substance abuse?: No - Immunizations Immunizations are current?: Yes - POLST Patient has POLST: No POLST Status: Full Code PD ED PE EXPANDED - General General: Alert, No acute distress, Anxious - HEENT HEENT: Atraumatic, PERRL - Neck Neck: Supple w/out meningeal sx, Soft tissue TTP ([place] left paracervical muscles with extension down the trapezius body.) - Cardiac Cardiac: Regular Rate, Radial strong equal, Pedal strong equal, Cap refill < 2 sec. No: Murmur Present - Respiratory Respiratory: Clear to ausultation tabby. No: Distress, Labored - Abdomen Abdomen: Normal Bowel sounds. No: Tender to palpation - Extremities Extremities: Left shoulder (Left shoulder moves freely in all pain planes without pain elicited.), Left arm (Mildly decreased strength with grasp and flexion of the left arm at elbow and wrist. Sensation preserved. ) Results - Vitals Vitals: Vital Signs - 24 hr 07/12/20 07/12/2021 13:21 13:46 14:00 Temperature 36.5 C Heart Rate 110 H 101 H 101 H Respiratory 16 16 16 Rate Blood Pressure 166/96 H 153/103 H 173/113 H O2 Saturation 98 98 98 07/12/20 07/12/20 07/12/20 15:00 15:11 15:30 Temperature Heart Rate 90 115 H 99 Respiratory 17 21 17 Rate Blood Pressure 162/101 H 165/98 H 165/106 H O2 Saturation 95 97 95 07/12/20 16:00 Temperature Heart Rate 97 Respiratory 16 Rate Blood Pressure 155/104 H O2 Saturation 93 Oxygen O2 Source Room air - EKG (time done) 1329 Rate: Rate (enter#) (102) Rhythm: Sinus tachycardia Ischemia: ST depression, Q waves (new in lead III), Non specific changes Compare to prior EKG: Changed from prior EKG Computer interpretation: Agree with computer (mild sinus tach with new q wave lead III obly. non specific ST changes) 1511 Rate: Rate (enter#) (95) Rhythm: NSR [place]: Normal Intervals: Normal [place] Ischemia: Non specific changes Compare to prior EKG: Unchanged from prior EKG Computer interpretation: Agree with computer - Labs Labs: Laboratory Tests 07/12/20 07/12/20 07/12/20 13:44 13:44 13:44 WBC 8.9 RBC 5.38 Hgb 16.3 Hct 48.9 MCV 90.9 MCH 30.3 MCHC 33.3 RDW 13.6 Plt Count 240 MPV 9.0 Neut # (Auto) 6.2 Lymph # (Auto) 1.7 [place] # (Auto) 0.7 Eos # (Auto) 0.3 Baso # (Auto) 0.1 Absolute Nucleated RBC 0.00 Nucleated RBC % 0.0 Sodium 139 Potassium 4.2 Chloride 99 L Carbon Dioxide 25 Anion Gap 15.0 H BUN 13 Creatinine 1.0 Estimated GFR (MDRD) 78 L Glucose 128 H Calcium 10.1 Total Bilirubin 0.7 AST 30 ALT 25 Alkaline Phosphatase 58 Troponin I High Sens 2.4 Total Protein 8.4 H Albumin 4.9 Globulin 3.5 Albumin/Globulin Ratio 1.4 Lipase 32 07/12/20 15:38 WBC RBC Hgb Hct MCV MCH MCHC RDW Plt Count MPV Neut # (Auto) Lymph # (Auto) [place] # (Auto) Eos # (Auto) Baso # (Auto) Absolute Nucleated RBC Nucleated RBC % Sodium Potassium Chloride Carbon Dioxide Anion Gap BUN Creatinine Estimated GFR (MDRD) Glucose Calcium Total Bilirubin AST ALT Alkaline Phosphatase Troponin I High Sens 2.4 Total Protein Albumin Globulin Albumin/Globulin Ratio Lipase - Rads (name of study) CT angio Radiology: Final report received (Emboli. No thoracic aortic aneurysm or gross dissection.) CXR Radiology: Final report received (No acute process) PD MEDICAL DECISION MAKING - ED course Complexity details: reviewed results, re-evaluated patient, considered differential, d/w patient ED course: 50-year-old male presents to the emergency department with worsening left neck and shoulder pain as well as new onset chest pain. Chest pain began about 6 hours prior to arrival. He does have a history of hypertension tobacco use as well as coronary artery disease and angina. Patient's initial focus of concern was the neck and shoulder pain with left arm weakness. This is not a new finding simply the pain is worse. He has had an MRI completed and is scheduled to see a neurologist at [facility] later this month. The more concerning finding is chest pain in a gentleman who has multiple risk factors. Initial EKG here in the emergency department does show borderline T wave changes but there is new Q-wave in lead III only. We will proceed with routine screening including high-sensitivity troponin 1510: Patient reporting sudden onset sharp left chest pain with pressure. Repeat EKG is essentially unchanged with no new ischemic changes. Recently completed high-sensitivity troponin is negative. However given high risk factors will order 324 of aspirin as well as repeat troponin. I am attempting to get in contact with the patient's fur drummer in [place]. He is unsure of the name. 1630: Pt continues to c/o sharp stabbign chest pain. Trop negative X2. Unable to r/p PE via PERC criteria given age, tachycardia. Will proceed with CT pulmonary angio. I have reached out to his cardiology office (Dr. Henry). They reports to me that he has not been seen in the office sicSeptember 2017. Awaiting return phone call from fur drummer 1700: I have spoken with patient's fur drummer Dr. Tran. We discussed his history of coronary artery disease which is mostly small vessel. He did indicate that there is likely no stenting available in modification with risk factors is the most important treatment. He is happy to see this patient in follow-up but based on my exam and presentation does not feel that he warrants emergent stress testing or echocardiogram. 1730: CT pulmonary angio this gentleman is negative for pulmonary embolus or aortic aneurysm/dissection. I did spend quite a bit of time discussing with patient is concerned about the neck pain. Given MRI findings this is likely rad iculopathy. He may need discectomy or laminectomy in the future to help with the pain and the weakness but no treatment can be rendered today with regard to that. Patient was requesting additional pain medication for home use but I do have concerns about pain seeking behaviors or possible inappropriate use and no prescription was offered on discharge. Encourage close follow-up with primary care provider Departure - Departure Disposition: Home, Self Care Clinical Impression: Neck pain Chest pain Qualifiers: Chest pain type: unspecified Qualified Code(s): R07.9 - Chest pain, unspecified Condition: Stable Record reviewed to determine appropriate education?: Yes Follow-Up: Mt Mitchell MD [Primary Care Provider] - Jim Henry MD [Physician No Access] - Comments: You were seen today in the emergency department for chest pain and neck pain. As we discussed it is important that you schedule follow-up with Dr. Tran your fur drummer. He can continue to discuss outpatient pain management and any further testing that may be needed with regards to your chest pain. I did review the MRI that was completed at [facility] a few months ago. You have multilevel disc disease in the neck. It is most likely that you have compression of one of the nerve roots that is causing the pain and weakness in the arm. Please continue to follow-up with [facility] as you are already scheduled.
[2020-07-12] MEDS ORDERED: HYDROmorphone 1 MG/ML CARPUJECT IVP STA ×2 (14:19→15:30)
[2020-07-12 14:21] LABS: ALBUMIN 4.9 g/dL (3.2-5.5); ALBUMIN/GLOBULIN RATIO 1.4 (1.0-2.2); BILIRUBIN,TOTAL 0.7 mg/dL (0.2-1.0); CALCIUM 10.1 mg/dL (8.5-10.3); TOTAL PROTEIN 8.4 g/dL (6.7-8.2)
[2020-07-12] MEDS ORDERED: ASPIRIN CHEW 81 MG TABLET PO STA (15:14)
[2020-07-12] MEDS ORDERED: IOVERSOL 320 100 ML VIAL IVP ONE ×2 (16:54→16:59)
--- NOTE | 2020-07-12 17:08 | CT Report ---
PROCEDURE: ANGIO CHEST W/WO INDICATIONS: stabbing chest pain; r/o PE CONTRAST: IV CONTRAST: Optiray 320 ml: 80 PO CONTRAST: *NO PO CONTRAST TECHNIQUE: After the administration of intravenous contrast, 2 mm thick sections acquired from the pulmonary api cooper to the posterior costophrenic angles. 3-dimensional maximum intensity projection (MIP) coronal a nd sagittal reformats were then acquired through the thorax. For radiation dose reduction, the follow ing was used: automated exposure control, adjustment of mA and/or kV according to patient size. COMPARISON: 11/07/2018 FINDINGS: Image quality: Excellent. Pulmonary arteries: Pulmonary arteries are normal in size, and demonstrate no intraluminal filling d efects to suggest central pulmonary embolism. Lungs and pleura: No acute airspace opacity. Dependent atelectasis in posterior aspect of bilateral l south bases are seen. No pleural effusions or pneumothorax. Central and peripheral airways are patent. Mediastinum: Heart size is normal, without pericardial effusion. No mediastinal or hilar adenopathy . Thoracic aorta is normal in caliber and enhancement. Esophagus is normal in caliber, without hiat al hernia. Bones and chest wall: No suspicious bony lesions. Fusion hardware in visualized lower cervical spine is again seen. Degenerative endplate changes and anterior bridging osteophytes are noted throughout visualized thoracic spine. The thyroid is normal. No axillary or supraclavicular adenopathy. Abdomen: Visualized upper abdominal solid organs appear normal in the early arterial phase of enhanc ement. Severe hepatic steatosis is again seen. IMPRESSION: 1. No evidence of pulmonary emboli. No thoracic aortic aneurysm or gross dissection. 2. Dependent atelectasis in posterior aspect of bilateral lung bases. Bilateral lungs are otherwise c lear. Airway is patent. 3. No mediastinal or hilar lymphadenopathy. 4. Severe hepatic steatosis unchanged from prior study. Reviewed by: Rafat Ann MD on 07/12/2020 5:06 PM PST Approved by: Rafat Ann MD on 07/12/2020 5:06 PM PST Station ID: [id number]
[2020-07-12 17:41] VITALS: BP 154/105
== END 2020-07-12 17:50 | disposition home or self-care (01) ==
LOC: ED 13:17
DX: R07.9 Chest pain, unspecified (principal); M54.2 Cervicalgia; M79.602 Pain in left arm; R29.898 Other symptoms and signs involving the musculoskeletal system; R00.0 Tachycardia, unspecified; K76.0 Fatty (change of) liver, not elsewhere classified; I25.10 Atherosclerotic heart disease of native coronary artery without angina pectoris; Z98.61 Coronary angioplasty status; I10 Essential (primary) hypertension; F17.200 Nicotine dependence, unspecified, uncomplicated; E11.9 Type 2 diabetes mellitus without complications; Z79.82 Long term (current) use of aspirin
CPT/HCPCS: 36415; 71045; 71275; 80053; 83690; 84484; 85025; 93005; 96374; 96376; 99284; A9270; J1170; Q9967

== ENCOUNTER 2020-07-17 17:54 | Emergency (ER) | payer MEDICAID ==
--- NOTE | 2020-07-17 19:13 | ED Physician Documentation ---
History of Present Illness - Stated complaint Stated Complaint: LT SHOULDER INJURY - Chief complaint Chief Complaint: Trauma Hd/Nk - Additonal information Additional information: 50-year-old male presents the emergency department with left shoulder and neck pain. He reports that this evening he was on a ladder cleaning [place] from the gutters when he slipped and fell directly onto the left shoulder. No loss of consciousness. Since the fall he reports that his left arm is more numb than normal. This gentleman does have a history of significant degenerative disc disease in the left arm and has had some numbness for quite some time. He is scheduled to see [facility] neurology in the next few weeks with regards to this left arm concern. Review of Systems Constitutional: reports: Reviewed and negative Eyes: reports: Reviewed and negative Ears: reports: Reviewed and negative Nose: reports: Reviewed and negative Throat: reports: Reviewed and negative Cardiac: reports: Reviewed and negative Respiratory: reports: Reviewed and negative GI: reports: Reviewed and negative : reports: Reviewed and negative Musculoskeletal: reports: Neck pain, Joint pain (left shoulder) PD PAST MEDICAL HISTORY - Past Medical History Past Medical History: Yes Cardiovascular: Hypertension, High cholesterol, Coronary artery disease, Angina Respiratory: Asthma Neuro: Headaches Endocrine/Autoimmune: Type 2 diabetes GI: None : None HEENT: None Psych: Depression, Anxiety, ADD/ADHD Musculoskeletal: Chronic back pain, Other Derm: None - Past Surgical History Past Surgical History: Yes Ortho: Spine surgery Cardiovascular: Cardiac catheterization - Present Medications Home Medications: Ambulatory Orders Medication Instructions Recorded Confirmed Metoprolol Succinate 50 mg PO BID 01/04/18 07/12/20 Aspirin Chewable [St Oneil 81 mg PO DAILY #15 tablet 02/03/18 07/12/20 Aspirin] Albuterol Sulfate [Albuterol 1 - 2 puffs IH Q4HR PRN 06/04/20 07/12/20 Sulfate Hfa] HYDROcodone/ACET 10/325 [[place] 10 1 each PO Q6H 06/04/20 06/07/20 mg/325 mg] Ondansetron Odt [Zofran] 4 mg TL Q6H PRN #25 tablet 06/04/20 07/12/20 Gabapentin [Neurontin] 600 mg PO TID 06/07/20 07/12/20 Sertraline [Zoloft] 50 mg PO DAILY 07/12/20 07/12/20 - Allergies Allergies/Adverse Reactions: Allergies Allergy/AdvReac Type Severity Reaction Status Date / Time droperidol AdvReac Unknown Verified 07/17/20 17:57 - Social History Does the pt smoke?: Yes Smoking Status: Current every day smoker Does the pt drink ETOH?: No Does the pt have substance abuse?: No - Immunizations Immunizations are current?: Yes - POLST Patient has POLST: No POLST Status: Full Code PD ED PE EXPANDED - General General: Alert, No acute distress, Well developed/nourished - Neck Neck: Supple w/out meningeal sx, Other (left paraspinous tendernes that extends down the body of trapezius. no swellign deformity.). No: Adenopathy, Bony TTP - Cardiac Cardiac: Regular Rate, Radial strong equal, Pedal strong equal, Cap refill < 2 sec - Respiratory Respiratory: Clear to ausultation tabby. No: Distress, Labored - Back Back: No: Vertebral tenderness - Extremities Extremities: Left shoulder (no tenderness at proximat humerus, AC joint no deformity. increased pain with abduction. mild weakness at elbow and wrst) Results - Vitals Vitals: Vital Signs - 24 hr 07/17/20 07/17/20 17:57 20:44 Temperature 37.4 C 37.0 C Heart Rate 124 H 112 H Respiratory 20 18 Rate Blood Pressure 156/113 H 135/110 H O2 Saturation 100 98 Oxygen O2 Source Room air - Rads (name of study) C-spine xray Radiology: Final report received (No acute fracture or dislocation) left shoulder xray Radiology: Final report received (No acute fracture or dislocation) PD MEDICAL DECISION MAKING - ED course Complexity details: reviewed results, re-evaluated patient, considered differential, d/w patient ED course: 50-year-old male presents the emergency department with left neck and shoulder pain after fall of about 4 feet from a ladder when cleaning his gutters. He does have a history of chronic neck pain as well as chronic numbness and mild weakness to the left arm. He is scheduled to see [facility] neurology in follow-up in a few weeks. X-rays were taken of the cervical spine and shoulder without any acute findings. He was given an injection of Dilaudid here in the emergency department. I did not prescribe narcotics on discharge. His exam was otherwise reassuring.Thoracic or lower lumbar tenderness elicited. Normal cardiopulmonary excursion. Departure - Departure Disposition: 01 Home, Self Care Clinical Impression: Neck pain Left shoulder pain Qualifiers: Chronicity: unspecified Qualified Code(s): M25.512 - Pain in left shoulder Condition: Stable Record reviewed to determine appropriate education?: Yes Comments: The x-rays of your shoulder and cervical spine do not show any new broken bones. You do have the degenerative disc disease that we have discussed in the past. It is important that you continue to follow-up with [facility] neurology as you are scheduled in a few weeks for reevaluation of your neck pain and left arm pain/numbness and weakness.
[2020-07-17] MEDS: HYDROmorphone 1 MG/ML CARPUJECT IVP STA ×2 (19:36→19:43)
[2020-07-17] MEDS: HYDROmorphone 1 MG/ML CARPUJECT IM STA (19:38)
--- NOTE | 2020-07-17 20:31 | XRAY Report ---
PROCEDURE: Shoulder 2 View LT INDICATIONS: fall TECHNIQUE: 2 views of the shoulder were acquired. COMPARISON: None. FINDINGS: Bones: No fractures or dislocations. No suspicious bony lesions. Visualized ribs appear intact. Soft tissues: No suspicious soft tissue calcifications. IMPRESSION: No trauma found. The adjacent chest wall visualized appears normal. Reviewed by: Harinder Kenny MD on 07/17/2020 8:30 PM PST Approved by: Harinder Kenny MD on 07/17/2020 8:30 PM [facility] Station ID: [id number]
--- NOTE | 2020-07-17 20:32 | XRAY Report ---
PROCEDURE: Cervical Spine 2 View INDICATIONS: fall TECHNIQUE: 3 view(s) of the cervical spine were acquired. COMPARISON: None. FINDINGS: Bones: No fractures or dislocations to the T1 level. The lateral masses of C1 appear intact on the odontoid view. No suspicious bony lesions. A C7-T1 anterior fusion plate can be seen. Soft tissues: No prevertebral soft tissue swelling. IMPRESSION: Prior anterior fusion plating C7-T1, no acute trauma found. Reviewed by: Harinder Kenny MD on 07/17/2020 8:31 PM PST Approved by: Harinder Kenny MD on 07/17/2020 8:31 PM [facility] Station ID: [id number]
[2020-07-17 21:08] VITALS: BP 140/99
== END 2020-07-17 21:08 | disposition home or self-care (01) ==
LOC: ED 17:54
DX: M54.2 Cervicalgia (principal); M25.512 Pain in left shoulder; W11.XXXA Fall on and from ladder, initial encounter; Y93.H9 Activity, other involving exterior property and land maintenance, building and construction; Y92.008 Other place in unspecified non-institutional (private) residence as the place of occurrence of the external cause; R20.0 Anesthesia of skin; Z98.1 Arthrodesis status; I10 Essential (primary) hypertension; E11.9 Type 2 diabetes mellitus without complications; F17.200 Nicotine dependence, unspecified, uncomplicated; Z79.82 Long term (current) use of aspirin
CPT/HCPCS: 72040; 73030; 96372; 99284; J1170

== ENCOUNTER 2020-08-09 17:37 | Outpatient (CLI) | payer MEDICAID | END 2020-08-09 23:59 | disposition critical access hospital (66) | LOC: EMS 17:37 | PROVIDERS: ATTEND Emergency Medicine | DX: M54.2 Cervicalgia (principal); M54.5 Low back pain | CPT/HCPCS: A0425; A0429; A0999 ==

== ENCOUNTER 2020-08-09 17:55 | Emergency (ER) | payer MEDICAID, OTHER ==
[2020-08-09] MEDS ORDERED: HYDROmorphone 1 MG/ML CARPUJECT IM STA (18:03)
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
--- NOTE | 2020-08-09 19:01 | CT Report ---
PROCEDURE: LUMBAR SPINE WO INDICATIONS: neck/back inj TECHNIQUE: Noncontrast 3 mm thick sections acquired from the T12 level to the sacrum. Sagittal and coronal refo rmats were constructed. For radiation dose reduction, the following was used: automated exposure co ntrol, adjustment of mA and/or kV according to patient size. COMPARISON: 08/25/2017 CT of abdomen and pelvis. FINDINGS: Image quality: Excellent. Bones: Patient is status post prior laminectomy and transpedicular fusion at L5-S1 level. Fusion puja dware and intervertebral spacer is seen. No gross hardware loosening or failure. There is normal bony alignment. No acute vertebral body compression fractures. No suspicious lytic or blastic bony lesi ons. Central spinal caliber is of normal overall caliber. T12-L1: Normal in appearance. L1-L2: Normal in appearance. L2-L3: Mild degenerative endplate changes are seen with mild central to left-sided disc bulge. No significant canal stenosis or neural foraminal narrowing. L3-L4: There is suggestion of central disc herniation causing mild central canal stenosis. Mild rig ht-sided neural foraminal narrowing is seen. L4-L5: There is decreased intervertebral disc space and degenerative endplate changes. Broad-based di sc bulge and superimposed central disc herniation is likely present causing moderate central canal st enosis and bilateral neural foraminal narrowing. L5-S1: Significant emptying hardening artifacts are noted. No significant canal stenosis or neural foraminal narrowing.. Soft tissues: No retroperitoneal masses. 2.5 x 1.4 cm fluid density deep to the right psoas muscle j ust anterior to right iliac bone without significant surrounding fat stranding or inflammatory change s. Visualized aorta is normal in caliber. IMPRESSION: 1. Prior posterior decompression and fusion at L5-S1 level with postsurgical changes. No gross hardwa re complication. No acute compression fracture or spondylolisthesis. 2. Degenerative disc bulge and bilateral facet arthrosis at L3-4 and L4-5 levels causing lnjc-lx-nzaf rate central canal stenosis and bilateral neural foraminal narrowing more prominent at L4-5 level as above. 3. Oval hypodense area involving the portion of right psoas muscle and measures 2.5 x 1.4 cm in size. This is a fairly nonspecific finding and may represent organizing intramuscular hematoma versus sero ma. The appearance is not typical for abscess collection at this time. Clinical correlation and follo w-up is recommended. This is a new finding since 09/02/2017 study. Reviewed by: Rafat Ann MD on 08/09/2020 6:00 PM [facility] Approved by: Rafat Ann MD on 08/09/2020 6:00 PM [facility] Station ID: [id number]
--- NOTE | 2020-08-09 19:04 | CT Report ---
PROCEDURE: CERVICAL SPINE WO INDICATIONS: neck/back inj TECHNIQUE: Noncontrast 3 mm thick sections acquired from the skull base to the T4 level. Sagittal and coronal r eformats were then constructed. For radiation dose reduction, the following was used: automated exp osure control, adjustment of mA and/or kV according to patient size. COMPARISON: Cervical spine radiograph dated 07/17/2020. FINDINGS: Image quality: Excellent. Bones: Patient is status post prior anterior fusion of C7 and T1 vertebral bodies with anterior fusi on hardware and intervertebral spacer placement. No gross hardware loosening or failure. Straightenin g of normal cervical lordosis is seen. No fractures or dislocations. Mild degenerative endplate cedeno ges are noted at C4-5 and C5-6 levels with dorsal disc osteophyte complex formation at C4-5 level cau sing mild central canal stenosis, no significant neural foraminal narrowing. Visualized superior ribs are intact. Soft tissues: Prevertebral soft tissues are normal in thickness. No paravertebral hematomas. No ap ical pneumothoraces. IMPRESSION: 1. Prior fusion of lower cervical spine at C7-T1 level. Straightening of normal cervical lordosis. No acute compression fracture or spondylolisthesis. No gross hardware complication. 2. Mild degenerative disc disease at C4-5 and C5-6 levels with mild central canal stenosis, no signif icant neural foraminal narrowing. 3. No gross paraspinous soft tissue abnormality. Reviewed by: Rafat Ann MD on 08/09/2020 6:02 PM [facility] Approved by: Rafat Ann MD on 08/09/2020 6:02 PM [facility] Station ID: [id number]
[2020-08-09] MEDS ORDERED: CYCLOBENZAPRINE 10 MG TABLET PO STA (19:12)
[2020-08-09] MEDS ORDERED: oxyCODONE 5 MG TABLET PO STA (19:12)
[2020-08-09 19:33] VITALS: BP 147/95
== END 2020-08-09 19:33 | disposition home or self-care (01) ==
LOC: EDUNIT# → ED 17:55
DX: S16.1XXA Strain of muscle, fascia and tendon at neck level, initial encounter (principal); M54.5 Low back pain; V43.52XA Car driver injured in collision with other type car in traffic accident, initial encounter; Y92.410 Unspecified street and highway as the place of occurrence of the external cause; M50.321 Other cervical disc degeneration at C4-C5 level; M48.02 Spinal stenosis, cervical region; I10 Essential (primary) hypertension; E11.9 Type 2 diabetes mellitus without complications; F17.200 Nicotine dependence, unspecified, uncomplicated
CPT/HCPCS: 72125; 72131; 96372; 99284; A9270; J1170

== ENCOUNTER 2020-08-21 17:47 | Emergency (ER) | payer MEDICAID ==
[2020-08-21 18:17] LABS: BASOPHILS % (AUTO) 0.4 %; EOSINOPHILS # (AUTO) 0.2 10^3/uL (0.0-0.7); EOSINOPHILS % (AUTO) 2.1 %; HGB - HEMOGLOBIN 15.7 g/dL (14.0-18.0); LYMPHOCYTES # (AUTO) 1.5 10^3/uL (1.5-3.5); LYMPHOCYTES % (AUTO) 16.8 %; MEAN CORPUSCULAR HEMOGLOBIN 30.7 pg (27.0-31.0); MEAN CORPUSCULAR HGB CONC 33.3 g/dL (32.0-36.0); MEAN CORPUSCULAR VOLUME 92.2 fL (80.0-94.0); MEAN PLATELET VOLUME 9.4 fL (7.4-11.4); MONOCYTES # (AUTO) 0.7 10^3/uL (0.0-1.0); MONOCYTES % (AUTO) 7.1 %; NEUTROPHILS # (AUTO) 6.7 10^3/uL (1.5-6.6); NEUTROPHILS % (AUTO) 73.3 %; PLT - PLATELET COUNT 226 10^3/uL (130-450); RED BLOOD COUNT 5.12 10^6/uL (4.70-6.10); WHITE BLOOD COUNT 9.1 x10^3/uL (4.8-10.8)
--- NOTE | 2020-08-21 18:23 | XRAY Report ---
PROCEDURE: Chest 1 View X-Ray INDICATIONS: Chest Pain TECHNIQUE: One view of the chest was acquired. COMPARISON: 07/12/2020 FINDINGS: Surgical changes and devices: None. Lungs and pleura: No pleural effusions or pneumothorax. Lungs are clear. Mediastinum: Mediastinal contours appear normal. Heart size is normal. Bones and chest wall: No suspicious bony lesions. Overlying soft tissues appear unremarkable. IMPRESSION: No acute pulmonary abnormality. Reviewed by: Bryce Escalante on 08/21/2020 6:21 PM [facility] Approved by: Bryce Escalante on 08/21/2020 6:21 PM [facility] Station ID: [id number]
--- NOTE | 2020-08-21 18:26 | ED Physician Documentation ---
PD HPI CHEST PAIN - Stated complaint Stated Complaint: CP/NECK PX - Chief complaint Chief Complaint: Cardiac - History obtained from History obtained from: Patient - History of Present Illness Timing - duration: Hours (>24) Timing - details: Gradual onset Pain level max: 10 Pain level now: 10 Quality: Pressure, Aching, Pain Location: Substernal, Left chest Radiation: No: Jaw, Neck, Back, Abdominal, Left upper extremity, Right upper extremity Improved by: Nothing Worsened by: Movement Associated symptoms: No: Shortness of air, Diaphoresis, Nausea, Vomiting, Feeling faint / dizzy, General Weakness, Palpitations, Cough Similar symptoms before: Diagnosis (Chest pain) - Additional information Additional information: Patient is a 50-year-old male who presents to the emergency department with 28 hours of left-sided chest pain. This has been constant. No changes. Seen at [facility] yesterday for same. Reportedly normal cardiac work-up at that time. He states that the pain is still present. Has not talked to his medical tech. This is his ninth emergency department visit this year. He is on hydrocodone at home for pain. He also filled 10 pills of oxycodone yesterday. Review of Systems Ten Systems: 10 systems reviewed and negative Constitutional: denies: Fever, Chills Ears: denies: Ear pain Nose: denies: Rhinorrhea / runny nose, Congestion Throat: denies: Sore throat Cardiac: denies: Palpitations Respiratory: denies: Dyspnea, Cough GI: denies: Abdominal Pain, Nausea, Vomiting, Diarrhea Skin: denies: Rash Musculoskeletal: reports: Neck pain (Patient states that he has chronic neck pain and radiculopathy. States unchanged from baseline) PD PAST MEDICAL HISTORY - Past Medical History Cardiovascular: Hypertension, High cholesterol, Coronary artery disease, Angina Respiratory: Asthma Neuro: Headaches Endocrine/Autoimmune: Type 2 diabetes GI: None : None HEENT: None Psych: Depression, Anxiety, ADD/ADHD Musculoskeletal: Chronic back pain, Other Derm: None - Past Surgical History Past Surgical History: Yes Ortho: Spine surgery Cardiovascular: Cardiac catheterization - Present Medications Home Medications: Ambulatory Orders Medication Instructions Recorded Confirmed Metoprolol Succinate 50 mg PO BID 01/04/18 08/09/20 Albuterol Sulfate [Albuterol 1 - 2 puffs IH Q4HR PRN 06/04/20 08/09/20 Sulfate Hfa] HYDROcodone/ACET 10/325 [[place] 10 1 each PO Q6H 06/04/20 08/09/20 mg/325 mg] Gabapentin [Neurontin] 600 mg PO TID 06/07/20 08/09/20 Sertraline [Zoloft] 50 mg PO DAILY 07/12/20 08/09/20 Cyclobenzaprine [Flexeril] 10 mg PO TID PRN #14 tab 08/09/20 - Allergies Allergies/Adverse Reactions: Allergies Allergy/AdvReac Type Severity Reaction Status Date / Time droperidol AdvReac Unknown Verified 08/21/20 17:51 - Social History Does the pt smoke?: Yes Smoking Status: Current every day smoker Does the pt drink ETOH?: No Does the pt have substance abuse?: No - Immunizations Immunizations are current?: Yes - POLST Patient has POLST: No POLST Status: Full Code PD ED PE NORMAL - Vitals Vital signs reviewed: Yes - General General: Alert and oriented X 3, No acute distress, Well developed/nourished - HEENT HEENT: Moist mucous membranes - Neck Neck: Supple, no meningeal sign - Cardiac Cardiac: RRR, Strong equal pulses - Respiratory Respiratory: No respiratory distress, Clear bilaterally - Abdomen Abdomen: Soft, Non tender, Non distended - Back Back: No spinal TTP - Derm Derm: Warm and dry - Extremities Extremities: No edema, No calf tenderness / cord - Neuro Neuro: Alert and oriented X 3 - Psych Psych: Normal mood, Normal affect Results - Vitals Vitals: Vital Signs - 24 hr 08/21/20 08/21/20 08/21/20 17:51 19:09 19:41 Temperature 36 C L Heart Rate 110 H 97 Respiratory 20 15 16 Rate Blood Pressure 149/109 H 159/97 H O2 Saturation 98 97 Oxygen O2 Source Room air - EKG (time done) 1757 Rate: Rate (enter#) (102) Rhythm: Sinus tachycardia [place]: Normal Intervals: Normal VT QRS: Normal Ischemia: Non specific changes - Labs Labs: Laboratory Tests 08/21/20 08/21/20 08/21/20 18:10 18:10 18:10 WBC 9.1 RBC 5.12 Hgb 15.7 Hct 47.2 MCV 92.2 MCH 30.7 MCHC 33.3 RDW 12.0 Plt Count 226 MPV 9.4 Neut # (Auto) 6.7 H Lymph # (Auto) 1.5 Tate # (Auto) 0.7 Eos # (Auto) 0.2 Baso # (Auto) 0.0 Absolute Nucleated RBC 0.00 Nucleated RBC % 0.0 Sodium 140 Potassium 4.2 Chloride 102 Carbon Dioxide 25 Anion Gap 13.0 BUN 15 Creatinine 0.9 Estimated GFR (MDRD) 89 Glucose 143 H Calcium 10.2 Total Bilirubin 0.5 AST 30 ALT 38 Alkaline Phosphatase 57 Troponin I High Sens 2.4 Total Protein 7.7 Albumin 4.6 Globulin 3.1 Albumin/Globulin Ratio 1.5 Lipase 45 - Rads (name of study) cxr Radiology: Prelim report reviewed, EMP read contemporaneously, See rad report (No acute pulmonary abnormality. ) PD MEDICAL DECISION MAKING - ED course Complexity details: reviewed results, re-evaluated patient, considered differential, d/w patient ED course: Patient is a 50-year-old male with chronic recurrent chest pain. Unchanged from his normal baseline. No acute findings on EKG, negative high-sensitivity troponin after greater than 24 hours of symptoms. Patient states that he has not yet picked up the oxycodone from yesterday. He states he did not know he was prescribed oxycodone. Informed him that the prescription shows that it was filled at [facility] in [place]. Does not appear to have any pneumothorax, acute coronary syndrome, aortic dissection, etc. Given a dose of oxycodone here for pain. Possible that this is referred pain from the radiculopathy in his neck. He states he is going to see orthopedics for this in about 2 weeks. He is currently on hydrocodone at home for pain as well. During his emergency department stay, the patient expressed that he was dissatisfied with his care in the emergency department. I spoke with him at length about this. He states that he feels he is dismissed when he comes to the emergency department because of the frequency of his visits. He also felt that I did not connect well with him. Apologized to the patient at the end of our discussion. Patient will follow up with his doctor for further care. Patient counseled regarding signs and symptoms for which I believe and urgent re-evaluation would be necessary. Patient with good understanding of and agreement to plan and is comfortable going home at this time This document was made in part using voice recognition software. While efforts are made to proofread this document, sound alike and grammatical errors may occur. Departure - Departure Disposition: 01 Home, Self Care Clinical Impression: Atypical chest pain Condition: Good Instructions: ED Chest Pain Atypical Unkn Cause Follow-Up: Mt Mitchell MD [Primary Care Provider] - Within 3 Days Comments: As we have discussed tonight, your testing is normal. Your chest x-ray, EKG and laboratory testing do not show any acute abnormalities. This is similar to your test yesterday at [facility]. The pain may be referred pain from your neck as we discussed. Dr. Esquivel appears to have sent a prescription for oxycodone to [facility] for you. This shows that it is ready and filled. I would use the medication as needed for breakthrough pain. Do not drink alcohol or drive while on narcotic pain medicine. Note that many narcotic pain relievers also contain tylenol/acetaminophen. Please ensure that your total dose of acetaminophen from all sources does not exceed 3 grams (3000mg) per day. You may constipated on this medication, take a stool softener such as "Colace" twice a day while you are on it. Also recommend a [id number] laxative such as senna or MiraLAX any day that you do not have a bowel movement. If you received narcotic pain medication in the emergency department, do not drive or operate machinery for the next 24 hours. It appears that [id number] yesterday. Discharge Date/Time: 08/21/20 19:48
[2020-08-21 18:52] LABS: ALBUMIN 4.6 g/dL (3.2-5.5); ALBUMIN/GLOBULIN RATIO 1.5 (1.0-2.2); BILIRUBIN,TOTAL 0.5 mg/dL (0.2-1.0); CALCIUM 10.2 mg/dL (8.5-10.3); CREATININE 0.9 mg/dL (0.6-1.2); TOTAL PROTEIN 7.7 g/dL (6.7-8.2)
[2020-08-21 19:09] VITALS: BP 159/97
[2020-08-21] MEDS ORDERED: oxyCODONE 5 MG TABLET PO STA (19:34)
== END 2020-08-21 19:48 | disposition home or self-care (01) ==
LOC: ED 17:47
DX: R07.9 Chest pain, unspecified (principal); I10 Essential (primary) hypertension; E11.9 Type 2 diabetes mellitus without complications; I20.9 Angina pectoris, unspecified; F17.200 Nicotine dependence, unspecified, uncomplicated; M54.2 Cervicalgia; G89.29 Other chronic pain
CPT/HCPCS: 36415; 71045; 80053; 83690; 84484; 85025; 93005; 99284; A9270

== ENCOUNTER 2020-09-05 14:01 | Emergency (ER) | payer MEDICAID ==
[2020-09-05] MEDS ORDERED: HYDROmorphone 1 MG/ML CARPUJECT IM STA (14:36)
--- NOTE | 2020-09-05 14:40 | ED Physician Documentation ---
History of Present Illness - Stated complaint Stated Complaint: NECK PX - Chief complaint Chief Complaint: Back Pain - Additonal information Additional information: 50-year-old male presents the emergency department for evaluation of neck pain and occasional stumbling when he walks. He reports that 1 week ago he tripped falling backward landing on concrete. He did not strike his head or lose consciousness. Since then he has been having worsening pain in the left side of his neck. He is taking 10 mg of hydrocodone every 6 hours but does not feel that it is helping. He did go to [facility] yesterday reportedly but left as he reports he was not seen after waiting for 3 hours. Pt history of chronic and ongoing left neck shoulder and arm pain that has resulted in weakness of this left arm. He underwent an MRI of the neck about [address] [facility]. Patient does have an appointment with his primary care provider tomorrow in [place]. He also has an appointment with the [facility] spine clinic September 09, 2020. Patient is not anticoagulated. He has a normal gait as he returns to the back from triage. 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 Review of Systems Constitutional: denies: Fever, Chills Eyes: reports: Reviewed and negative Ears: denies: Loss of hearing, Ear pain, Drainage/discharge Nose: denies: Rhinorrhea / runny nose, Congestion, Foreign Body, Reviewed and negative Cardiac: denies: Chest pain / pressure, Palpitations, Pedal edema, Calf pain Respiratory: denies: Dyspnea, Cough, Hemoptysis, Wheezing GI: reports: Reviewed and negative : reports: Reviewed and negative Skin: denies: Rash, Lesions Musculoskeletal: reports: Neck pain Neurologic: denies: Generalized weakness, Focal weakness, Numbness, Syncope, Seizure, Headache, Head injury PD PAST MEDICAL HISTORY - Past Medical History Past Medical History: Yes Cardiovascular: Hypertension, High cholesterol, Coronary artery disease, Angina Respiratory: Asthma Neuro: Headaches Endocrine/Autoimmune: Type 2 diabetes GI: None : None HEENT: None Psych: Depression, Anxiety, ADD/ADHD Musculoskeletal: Chronic back pain, Other Derm: None - Past Surgical History Past Surgical History: Yes Ortho: Spine surgery Cardiovascular: Cardiac catheterization - Present Medications Home Medications: Ambulatory Orders Medication Instructions Recorded Confirmed Metoprolol Succinate 50 mg PO BID 01/04/18 09/05/20 Albuterol Sulfate [Albuterol 1 - 2 puffs IH Q4HR PRN 06/04/20 09/05/20 Sulfate Hfa] HYDROcodone/ACET 10/325 [[place] 10 1 each PO Q6H 06/04/20 09/05/20 mg/325 mg] Gabapentin [Neurontin] 600 mg PO TID 06/07/20 09/05/20 Sertraline [Zoloft] 50 mg PO DAILY 07/12/20 09/05/20 Aspirin EC [Ecotrin] 81 mg ORAL DAILY 09/05/20 09/05/20 - Allergies Allergies/Adverse Reactions: Allergies Allergy/AdvReac Type Severity Reaction Status Date / Time droperidol AdvReac Unknown Verified 09/05/20 14:07 - Social History Does the pt smoke?: Yes Smoking Status: Current every day smoker Does the pt drink ETOH?: No Does the pt have substance abuse?: No - Immunizations Immunizations are current?: Yes - POLST Patient has POLST: No POLST Status: Full Code PD ED PE EXPANDED - General General: Alert, No acute distress - Neck Neck: Supple w/out meningeal sx, Other (reduced right lateral ROM; no midline focal spinous tenderness. Pinpoint focal left trapezius ttp without ecchymosis/erythema). No: Adenopathy - Cardiac Cardiac: Regular Rate, Regular Rhythm - Respiratory Respiratory: Clear to ausultation tabby. No: Distress, Labored - Derm Derm: Normal color, Warm and dry. No: Abrasion (s), Bruising - Extremities Extremities: Normal, Deformity, Tenderness, Other (Full range of motion of shoulders elbows and wrists. Motor strength 5 of 5 bilateral upper extremities. Motor strength equal against push pull in all resistance.). No: Limited ROM - Neuro Neuro: Alert and Oriented X 3, CNII-XII intact, Normal gait - GCS Eye Opening: Spontaneous Motor: Obeys Commands Verbal: Oriented Total: 15 Results - Vitals Vitals: Vital Signs - 24 hr 09/05/20 14:08 Temperature 36.4 C L Heart Rate 98 Respiratory 20 Rate Blood Pressure 171/103 H O2 Saturation 100 Oxygen O2 Source Room air - Rads (name of study) cervical xr Radiology: Final report received (Multilevel degenerative changes. No visualized acute fracture dislocation) PD MEDICAL DECISION MAKING - ED course Complexity details: reviewed results, re-evaluated patient, considered differential, d/w patient ED course: 50-year-old male presents to the emergency department with acute on chronic neck pain. Reports a fall nearly 1 week ago in which she fell directly back onto concrete. Did not strike his head no loss of consciousness. He does have a history of previous fixation of the cervical spine. He reports chronic chronic pain in this area. X-ray today does not show any acute fractures or obvious dislocation. On motor exam he has preserved and full range of motion of the upper extremities against resistance. Patient does have a current prescription for hydrocodone. He is scheduled to see his primary care doctor tomorrow and follow-up as well as [facility] spine clinic early next week. No further prescriptions were offered today. Emergent return precautions were discussed Departure - Departure Disposition: 01 Home, Self Care Clinical Impression: Chronic neck pain Fall Qualifiers: Encounter type: initial encounter Qualified Code(s): W19.XXXA - Unspecified fall, initial encounter Condition: Stable Record reviewed to determine appropriate education?: Yes Follow-Up: Mt Mitchell MD [Primary Care Provider] - Comments: Satnam I hope that your neck is feeling better soon. The x-ray today shows unchanged degenerative changes within your spine. Because this is a more chronic concern I do not think that you would benefit from a course of steroids today. Please continue to follow-up with your primary care doctor tomorrow. I also would like you to continue to follow-up with the [facility] spine clinic next week as already scheduled. You can continue to take the hydrocodone you are already prescribed for pain. Do not drive if taking this. You may also find some benefit in using [id number] NSAID medication such as ibuprofen or Aleve. For acute inflamm ation simply placing an ice pack on your neck and shoulder can be helpful. If you develop arm weakness cannot make a normal fist or grab things, develop any fevers please return immediately to the ER for a second look
--- NOTE | 2020-09-05 15:35 | XRAY Report ---
PROCEDURE: Cervical Spine 2 View INDICATIONS: fall; neck pain TECHNIQUE: 3 view(s) of the cervical spine were acquired. COMPARISON: None. FINDINGS: Bones: No fractures or dislocations to the C7-T1 level. The lateral masses of C1 appear intact on t he odontoid view. No suspicious bony lesions. There is straightening of normal cervical curvature. Fusion is present at C7-T1. Multilevel uncovertebral hypertrophy is present. Mild disc space narrowin g is present at C4-5, C5-6. Soft tissues: No prevertebral soft tissue swelling. IMPRESSION: Degenerative changes as above. No visualized acute fracture or dislocation. However, occ ult injury cannot be excluded. Recommend short interval imaging follow-up in 7-10 days as clinically indicated for additional evaluation. Reviewed by: Ayse Pierre MD on 09/05/2020 3:34 PM PST Approved by: Ayse Pierre MD on 09/05/2020 3:34 PM [facility] Station ID: [id number]
[2020-09-05 16:04] VITALS: BP 142/101
== END 2020-09-05 16:04 | disposition home or self-care (01) ==
LOC: ED 14:01
DX: M54.2 Cervicalgia (principal); G89.29 Other chronic pain; W01.0XXA Fall on same level from slipping, tripping and stumbling without subsequent striking against object, initial encounter; M47.812 Spondylosis without myelopathy or radiculopathy, cervical region; Z98.1 Arthrodesis status; I10 Essential (primary) hypertension; E11.9 Type 2 diabetes mellitus without complications; Z79.82 Long term (current) use of aspirin; F17.200 Nicotine dependence, unspecified, uncomplicated
CPT/HCPCS: 72040; 96372; 99283; 99284; J1170

== ENCOUNTER 2020-11-09 11:32 | Emergency (ER) | payer MEDICAID ==
[2020-11-09 11:44] VITALS: BP 172/88
== END 2020-11-09 12:45 | disposition left against medical advice (07) ==
LOC: ED 11:32
DX: Z53.21 Procedure and treatment not carried out due to patient leaving prior to being seen by health care provider (principal)

== ENCOUNTER 2020-11-16 20:49 | Emergency (ER) | payer MEDICAID ==
--- NOTE | 2020-11-16 21:34 | ED Physician Documentation ---
History of Present Illness - Stated complaint Stated Complaint: NECK PX - Chief complaint Chief Complaint: General - History obtained from History obtained from: Patient - Additonal information Additional information: 50-year-old gentleman with history of chronic neck pain related to degenerative disc disease in the neck. He has left-sided neck pain every day, and he had a CT here for this in August of this year showing prior fusion of lower cervical spine at C7-T1 level, straightening of the normal cervical lordosis. Mild DDD at C5-CV 6 and C4-C5 with mild central canal stenosis. Today without clear reason his neck pain got much worse. It is always on the left but now it spread across to the right and became more significant. Radiates up towards the occiput but no headache. No neck stiffness. No fevers. Is associated with chronic numbness and weakness in the left hand which is his dominant side. Review of Systems Constitutional: reports: Reviewed and negative Nose: reports: Reviewed and negative Throat: reports: Reviewed and negative Cardiac: reports: Reviewed and negative Respiratory: reports: Reviewed and negative PD PAST MEDICAL HISTORY - Past Medical History Cardiovascular: Hypertension, High cholesterol, Coronary artery disease, Angina Respiratory: Asthma Neuro: Headaches Endocrine/Autoimmune: Type 2 diabetes GI: None : None HEENT: None Psych: Depression, Anxiety, ADD/ADHD Musculoskeletal: Chronic back pain, Other Derm: None - Past Surgical History Past Surgical History: Yes Ortho: Spine surgery Cardiovascular: Cardiac catheterization - Present Medications Home Medications: Ambulatory Orders Medication Instructions Recorded Confirmed Metoprolol Succinate 50 mg PO BID 01/04/18 11/16/20 Albuterol Sulfate [Albuterol 1 - 2 puffs IH Q4HR PRN 06/04/20 11/16/20 Sulfate Hfa] Gabapentin [Neurontin] 600 mg PO TID 06/07/20 11/16/20 Sertraline [Zoloft] 50 mg PO DAILY 07/12/20 11/16/20 Aspirin EC [Ecotrin] 81 mg ORAL DAILY 09/05/20 11/16/20 - Allergies Allergies/Adverse Reactions: Allergies Allergy/AdvReac Type Severity Reaction Status Date / Time droperidol AdvReac Unknown Verified 11/16/20 20:52 - Social History Does the pt smoke?: Yes Smoking Status: Current every day smoker Does the pt drink ETOH?: No Does the pt have substance abuse?: No - Immunizations Immunizations are current?: Yes - POLST Patient has POLST: No POLST Status: Full Code PD ED PE NORMAL - Vitals Vital signs reviewed: Yes - General General: Alert and oriented X 3, No acute distress - Neck Neck: Supple, no meningeal sign, No bony TTP - Extremities Extremities: Other (Mild decrease in left-sided hooker up strength and thumb extension and kind of diffuse slight decrease in sensation throughout the left upper extremity) - Neuro Neuro: Alert and oriented X 3, Normal speech Results - Vitals Vitals: Vital Signs - 24 hr 11/16/20 20:53 Temperature 37.4 C Heart Rate 115 H Respiratory 18 Rate Blood Pressure 185/100 H O2 Saturation 97 Oxygen O2 Source Room air Procedures - General procedure General procedure: Trigger point injection done on either side of the neck with 2 mL of 0.5% of ropivacaine on each side. Departure - Departure Disposition: 01 Home, Self Care Clinical Impression: Chronic neck pain Condition: Good Record reviewed to determine appropriate education?: Yes Instructions: ED Neck Pain No Trauma Comments: Follow-up with [facility] for further evaluation and treatment as scheduled. Return for new or worsening symptoms.
[2020-11-16] MEDS ORDERED: ROPIVACAINE 0.5% PF 20 ML AMPULE SUBQ STA (21:38)
[2020-11-16 22:13] VITALS: BP 133/89
== END 2020-11-16 22:13 | disposition home or self-care (01) ==
LOC: ED 20:49
DX: M54.2 Cervicalgia (principal); G89.29 Other chronic pain; I10 Essential (primary) hypertension; E11.9 Type 2 diabetes mellitus without complications; F17.200 Nicotine dependence, unspecified, uncomplicated; Z79.82 Long term (current) use of aspirin
CPT/HCPCS: 20552

== ENCOUNTER 2020-12-14 13:34 | Outpatient (CLI) | payer MEDICAID ==
--- NOTE | 2020-12-14 14:12 | XRAY Report ---
PROCEDURE: Lumbar Spine 2 View INDICATIONS: DEGENERATIVE DISC DISEASE, LUMBAR SPINE TECHNIQUE: 2 views of the lumbar spine were acquired. COMPARISON: CT of lumbar spine dated 08/09/2020 and lumbar spine radiograph dated 10/29/2018, 10/25/2018 and 07/06/2017. FINDINGS: Bones: 5 [id number] vertebrae are present. There is prior transpedicular fusion at L5-S1 level with intervertebral spacer placement. No gross hardware loosening or failure. Mild leftward curvature of lumbar spine centered at L3 level is seen. Degenerative endplate changes are noted throughout lum bar spine. No acute compression fracture.. No suspicious bony lesions. Soft tissues: Overlying bowel gas pattern is normal. No suspicious soft tissue calcifications. IMPRESSION: Post fusion changes at L5-S1 level with anatomic lumbar spine alignment. No acute monico ting fracture or spondylolisthesis. No gross hardware complication. Mild leftward scoliosis of lumbar spine centered at L3 level. Degenerative disc disease throughout lumbar spine. Reviewed by: Rafat Ann MD on 12/14/2020 2:11 PM PDT Approved by: Rafat Ann MD on 12/14/2020 2:11 PM PDT Station ID: [id number]
== END 2020-12-14 23:59 | disposition home or self-care (01) ==
LOC: DI.N 13:34
PROVIDERS: ATTEND Family Medicine
DX: M51.36 Other intervertebral disc degeneration, lumbar region (principal); M41.9 Scoliosis, unspecified; Z98.1 Arthrodesis status; M51.37 Other intervertebral disc degeneration, lumbosacral region

== ENCOUNTER 2020-12-25 12:43 | Emergency (ER) | payer OTHER, MEDICAID ==
--- NOTE | 2020-12-25 12:56 | ED Physician Documentation ---
PD HPI BACK PAIN - Stated complaint Stated Complaint: BACK INJURY - Chief complaint Chief Complaint: Back Pain - History obtained from History obtained from: Patient - History of Present Illness Timing - onset: Today Timing - duration: Hours (2-3) Timing - details: Abrupt onset Location: Lower, Left Quality: Pain, Spasm, Aching Associated symptoms: No: Fever, Weakness, Numbness, Incontinent of urine Improves with: Rest. No: Meds Worsened by: Movement Contributing factors: Lifting (he was lifting something at work and felt pain lower left back.) Similar symptoms before: Diagnosis (disc problems low back, prior lumbar surgery with fusion and hardware. Has intermittent back pain episodes since.) Recently seen: Clinic (Walk In clinic 2 weeks ago with similar and Rx Robaxin and naproxen and was improved to baseline and working okay.) Review of Systems Constitutional: denies: Fever, Chills Nose: denies: Rhinorrhea / runny nose, Congestion Throat: denies: Sore throat Respiratory: denies: Cough : denies: Incontinent Neurologic: denies: Generalized weakness, Focal weakness, Numbness PD PAST MEDICAL HISTORY - Past Medical History Cardiovascular: Hypertension, High cholesterol, Coronary artery disease, Angina Respiratory: Asthma Neuro: Headaches Endocrine/Autoimmune: Type 2 diabetes GI: None : None HEENT: None Psych: Depression, Anxiety, ADD/ADHD Musculoskeletal: Chronic back pain, Other Derm: None - Past Surgical History Past Surgical History: Yes Ortho: Spine surgery Cardiovascular: Cardiac catheterization - Present Medications Home Medications: Ambulatory Orders Medication Instructions Recorded Confirmed Metoprolol Succinate 50 mg PO BID 01/04/18 11/16/20 Albuterol Sulfate [Albuterol 1 - 2 puffs IH Q4HR PRN 06/04/20 11/16/20 Sulfate Hfa] Gabapentin [Neurontin] 600 mg PO TID 06/07/20 11/16/20 Sertraline [Zoloft] 50 mg PO DAILY 07/12/20 11/16/20 Aspirin EC [Ecotrin] 81 mg ORAL DAILY 09/05/20 11/16/20 Acetaminophen [Tylenol] 650 mg PO Q6H PRN #40 tab 12/25/20 Lidocaine Patch 5% [Lidoderm Patch] 1 each TOP DAILY #10 patch 12/25/20 dexAMETHasone [Decadron] 4 mg PO DAILY #5 tablet 12/25/20 tiZANidine [Zanaflex] 4 mg PO Q8H PRN #25 tablet 12/25/20 - Allergies Allergies/Adverse Reactions: Allergies Allergy/AdvReac Type Severity Reaction Status Date / Time droperidol AdvReac Unknown Verified 12/25/20 12:51 - Social History Does the pt smoke?: Yes Smoking Status: Current every day smoker Does the pt drink ETOH?: No Does the pt have substance abuse?: No - Immunizations Immunizations are current?: Yes - POLST Patient has POLST: No POLST Status: Full Code PD ED PE NORMAL - Vitals Vital signs reviewed: Yes - General General: Alert and oriented X 3, No acute distress, Well developed/nourished - Abdomen Abdomen: Soft, Non tender - Back Back: No spinal TTP, Other (tender left low back muscles. No rash nor sores. ) - Derm Derm: Normal color, Warm and dry - Neuro Neuro: Alert and oriented X 3, No motor deficit, No sensory deficit, Other (normal knee reflexes. ) Results - Vitals Vitals: Vital Signs - 24 hr 12/25/20 12/25/20 12:47 14:06 Temperature 35.9 C L 37.0 C Heart Rate 106 H 90 Respiratory 18 19 Rate Blood Pressure 173/95 H 144/81 H O2 Saturation 98 96 Oxygen O2 Source Room air PD MEDICAL DECISION MAKING - ED course Complexity details: reviewed old records (GAY reviewed. Will not give Rx for opioids. ), considered differential (no red flags to suggest need for testing or imaging. ), d/w patient Departure - Departure Disposition: 01 Home, Self Care Clinical Impression: Low back strain Qualifiers: Encounter type: initial encounter Qualified Code(s): S39.012A - Strain of muscle, fascia and tendon of lower back, initial encounter Condition: Stable Record reviewed to determine appropriate education?: Yes Instructions: ED Sprain Strain Lumbar Follow-Up: Mt Mitchell MD [Primary Care Provider] - Prescriptions: dexAMETHasone [Decadron] 4 mg PO DAILY #5 tablet Lidocaine Patch 5% [Lidoderm Patch] 1 each TOP DAILY #10 patch Acetaminophen [Tylenol] 650 mg PO Q6H PRN #40 tab PRN Reason: Pain tiZANidine [Zanaflex] 4 mg PO Q8H PRN #25 tablet PRN Reason: Spasms Comments: Heat and stretching for the area to reduce spasms and stiffness. Physical treatments such as massage and chiropractic are good as well. Off work for 3 days and do some gentle stretching but no heavy lifting during that time. Decadron steroid anti-inflammatory daily for 5 more days. Tizanidine muscle relaxant 3-4 times a day for stiffness and spasms. You can try lidocaine patch topically to the area that is hurting daily. Add Tylenol 650 mg 4 times a day regularly for the next several days and then as needed after that. Follow-up with your primary care. They may want to institute some physical therapy or exercises. Forms: Activity restrictions Discharge Date/Time: 12/25/20 14:34
[2020-12-25] MEDS ORDERED: HYDROmorphone 2 MG/ML VIAL IM STA (13:13)
[2020-12-25] MEDS ORDERED: methocarbamoL 500 MG TABLET PO STA (13:13)
[2020-12-25] MEDS ORDERED: KETOROLAC 30 MG/ML VIAL IM STA (13:13)
[2020-12-25] MEDS ORDERED: DEXAMETHASONE 10 MG/ML VIAL PO STA (13:13)
[2020-12-25] MEDS ORDERED: CHERRY SYRUP 10 ML UDC PO ONE (13:13)
[2020-12-25 14:06] VITALS: BP 144/81
== END 2020-12-25 14:34 | disposition home or self-care (01) ==
LOC: ED 12:43
DX: S39.012A Strain of muscle, fascia and tendon of lower back, initial encounter (principal); X50.0XXA Overexertion from strenuous movement or load, initial encounter; Y99.0 Civilian activity done for income or pay; E11.9 Type 2 diabetes mellitus without complications; I10 Essential (primary) hypertension; F17.200 Nicotine dependence, unspecified, uncomplicated
CPT/HCPCS: 1040M; 96372; 99284; A9270; J1170

== ENCOUNTER 2021-03-30 12:12 | Emergency (ER) | payer MEDICAID ==
--- NOTE | 2021-03-30 12:34 | ED Physician Documentation ---
PD HPI CHEST PAIN - Stated complaint Stated Complaint: CHEST/BACK PX - Chief complaint Chief Complaint: Cardiac - History obtained from History obtained from: Patient - History of Present Illness Timing - onset: How many hours ago (6.5) Timing - onset during: Sleep Quality: Sharp Location: Left chest Radiation: Other (none, has separate lower back pain) Improved by: Rest Worsened by: Exertion Associated symptoms: Shortness of air. No: Diaphoresis, Nausea, Vomiting, Feeling faint / dizzy, General Weakness, Palpitations, Cough Similar symptoms before: Work up / diagnostics Recently seen: Other (seen several times in the past for same, though none in past several months) - Additional information Additional information: 50 yo M w/ history of recurrent chest pain, followed by cardiology, presents with left chest wall pain, non radiating, since around 6:30am. He also has some lower back pain for several days which started after he had to help lift his mom out of the house in a wheelchair. Chest pain is typical of his prior exacerbations. He reports following w/ cardiology and having had several stress tests and two caths, most recently 6 months ago, that showed some small vessel non stentable disease. He is not on any nitrates for angina. His last episode was a few months ago. Cannot identify any triggers or exacerbating/alleviating factors. He takes daily aspirin. Regarding the back pain, is is generalized lower back discomfort not radiating into the legs or groin. He has no saddle anesthesia, no lower ext weakness or paraesthesia, no bowel or bladder changes, no fever. He thinks perhaps the back pain triggered his chest pain. Taking ibuprofen without relief. PD PAST MEDICAL HISTORY - Past Medical History Cardiovascular: Hypertension, High cholesterol, Coronary artery disease, Angina Respiratory: Asthma Neuro: Headaches Endocrine/Autoimmune: Type 2 diabetes GI: None : None HEENT: None Psych: Depression, Anxiety, ADD/ADHD Musculoskeletal: Chronic back pain, Other Derm: None - Past Surgical History Past Surgical History: Yes Ortho: Spine surgery Cardiovascular: Cardiac catheterization - Present Medications Home Medications: Ambulatory Orders Medication Instructions Recorded Confirmed Metoprolol Succinate 50 mg PO BID 01/04/18 11/16/20 Albuterol Sulfate [Albuterol 1 - 2 puffs IH Q4HR PRN 06/04/20 11/16/20 Sulfate Hfa] Gabapentin [Neurontin] 600 mg PO TID 06/07/20 11/16/20 Sertraline [Zoloft] 50 mg PO DAILY 07/12/20 11/16/20 Aspirin EC [Ecotrin] 81 mg ORAL DAILY 09/05/20 11/16/20 Acetaminophen [Tylenol] 650 mg PO Q6H PRN #40 tab 12/25/20 Lidocaine Patch 5% [Lidoderm Patch] 1 each TOP DAILY #10 patch 12/25/20 dexAMETHasone [Decadron] 4 mg PO DAILY #5 tablet 12/25/20 tiZANidine [Zanaflex] 4 mg PO Q8H PRN #25 tablet 12/25/20 - Allergies Allergies/Adverse Reactions: Allergies Allergy/AdvReac Type Severity Reaction Status Date / Time droperidol AdvReac Unknown Verified 03/30/21 12:16 - Social History Does the pt smoke?: Yes Smoking Status: Current every day smoker Does the pt drink ETOH?: No Does the pt have substance abuse?: No - Immunizations Immunizations are current?: Yes - POLST Patient has POLST: No POLST Status: Full Code PD ED PE NORMAL - Vitals Vital signs reviewed: Yes - General General: Alert and oriented X 3, No acute distress, Well developed/nourished - HEENT HEENT: Atraumatic, Pharynx benign - Cardiac Cardiac: No murmur, No gallop, No rub, Other (tachycardic, regular) - Respiratory Respiratory: No respiratory distress, Clear bilaterally - Abdomen Abdomen: Normal bowel sounds, Soft, Non tender, Non distended - Back Back: No CVA TTP, No spinal TTP - Derm Derm: Normal color, Warm and dry, No rash - Extremities Extremities: No deformity, No tenderness to palpate, Normal ROM s pain, No edema, No calf tenderness / cord - Neuro Neuro: Alert and oriented X 3, No motor deficit, No sensory deficit, Normal speech Eye Opening: Spontaneous Motor: Obeys Commands Verbal: Oriented GCS Score: 15 - Psych Psych: Normal mood, Normal affect Results - Vitals Vitals: Vital Signs - 24 hr 03/30/21 03/30/21 12:16 13:20 Temperature 36.2 C L Heart Rate 125 H 119 H Respiratory 20 15 Rate Blood Pressure 152/117 H 181/117 H O2 Saturation 98 99 Oxygen O2 Source Room air - EKG (time done) No standard instances Rate: Rate (enter#) Rhythm: Sinus tachycardia [place]: Normal QRS: Normal Ischemia: Normal ST segments Compare to prior EKG: Unchanged from prior EKG Computer interpretation: Agree with computer - Labs Labs: Laboratory Tests 03/30/21 03/30/21 03/30/21 12:32 12:32 12:32 WBC 10.8 RBC 5.50 Hgb 16.5 Hct 49.6 MCV 90.2 MCH 30.0 MCHC 33.3 RDW 12.2 Plt Count 229 MPV 9.2 Neut # (Auto) 8.2 H Lymph # (Auto) 1.6 [place] # (Auto) 0.8 Eos # (Auto) 0.1 Baso # (Auto) 0.1 Absolute Nucleated RBC 0.00 Nucleated RBC % 0.0 Sodium 138 Potassium 3.9 Chloride 97 L Carbon Dioxide 27 Anion Gap 14.0 H BUN 16 Creatinine 1.1 Estimated GFR (MDRD) 70 L Glucose 198 H Calcium 10.3 Total Bilirubin 0.7 AST 42 ALT 51 Alkaline Phosphatase 59 Troponin I High Sens 4.0 Total Protein 8.4 H Albumin 5.0 Globulin 3.4 Albumin/Globulin Ratio 1.5 Lipase 36 PD MEDICAL DECISION MAKING - ED course Complexity details: reviewed old records, reviewed results, re-evaluated patient, considered differential, d/w patient ED course: 50 yo M presented w/ atypical chest pain similar to prior episodes as well as lower back pain. Lower back pain is msk in nature, he had no sx of infectious or of cauda equina syndrome. Differentials for chest pain include msk, anxiety, babak, pe, pna, ptx, dissection. Low suspicion for pe or dissection per exam, history, and risk factors. He has no sx of pna and his chest xray is clear. He appears comfortable on exam and there are no focal exam findings other than mild tachycardia which is not uncommon for him on presentation to the ER. We obtained an EKG which showed no acute ischemic changes. His chest xray was normal. Lab eval reassuring w/ negative high sensitivity trop. He was given toradol w/ some improvement in his back and chest pain. Suspect cp is muscle strain and typical of prior pain, pt to follow up with camera storage clerk as outpt, may take motrin or Tylenol. Reviewed return precautions if pain worsened or was different than typical. Departure - Departure Disposition: 01 Home, Self Care Clinical Impression: Chest wall pain Condition: Good Instructions: ED Chest Pain Atypical Unkn Cause Comments: Your EKG and troponin (cardiac enzyme) and other labs are reassuring. This does not appear to be coming from your heart and is typical of your prior episodes. Please continue follow up with your camera storage clerk. Rest today, avoid lifting or strenuous activity. Try tylenol or motrin as needed. If you have pain that is different or worse than your typical chest pain, please return to the ER. Discharge Date/Time: 03/30/21 13:30
[2021-03-30 12:53] LABS: ALBUMIN/GLOBULIN RATIO 1.5 (1.0-2.2); BASOPHILS # (AUTO) 0.1 10^3/uL (0.0-0.1); BASOPHILS % (AUTO) 0.5 %; BILIRUBIN,TOTAL 0.7 mg/dL (0.2-1.0); CALCIUM 10.3 mg/dL (8.5-10.3); CREATININE 1.1 mg/dL (0.6-1.2); EOSINOPHILS # (AUTO) 0.1 10^3/uL (0.0-0.7); HCT - HEMATOCRIT 49.6 % (42.0-52.0); HGB - HEMOGLOBIN 16.5 g/dL (14.0-18.0); LYMPHOCYTES # (AUTO) 1.6 10^3/uL (1.5-3.5); LYMPHOCYTES % (AUTO) 14.5 %; MEAN CORPUSCULAR HGB CONC 33.3 g/dL (32.0-36.0); MEAN CORPUSCULAR VOLUME 90.2 fL (80.0-94.0); MEAN PLATELET VOLUME 9.2 fL (7.4-11.4); MONOCYTES # (AUTO) 0.8 10^3/uL (0.0-1.0); MONOCYTES % (AUTO) 7.5 %; NEUTROPHILS # (AUTO) 8.2 10^3/uL (1.5-6.6); NEUTROPHILS % (AUTO) 76.1 %; PLT - PLATELET COUNT 229 10^3/uL (130-450); POTASSIUM 3.9 mmol/L (3.5-5.0); RED CELL DISTRIBUTION WIDTH 12.2 % (12.0-15.0); TOTAL PROTEIN 8.4 g/dL (6.7-8.2); WHITE BLOOD COUNT 10.8 x10^3/uL (4.8-10.8)
--- NOTE | 2021-03-30 13:05 | XRAY Report ---
PROCEDURE: Chest 1 View X-Ray INDICATIONS: Chest Pain TECHNIQUE: One view of the chest was acquired. COMPARISON: 08/21/2020, 07/12/2020 FINDINGS: Surgical changes and devices: Cervical spine fixation hardware is seen. Lungs and pleura: No pleural effusions or pneumothorax. Lungs are clear. Mediastinum: Mediastinal contours appear normal. Heart size is normal. Bones and chest wall: No suspicious bony lesions. Age-appropriate degenerative changes are seen. O verlying soft tissues appear unremarkable. IMPRESSION: Portable chest within normal limits for age. Reviewed by: Darien Mckee MD on 03/30/2021 12:04 PM [place] Approved by: Darien Mckee MD on 03/30/2021 12:04 PM [place] Station ID: [id number]
[2021-03-30] MEDS ORDERED: KETOROLAC 30 MG/ML VIAL IVP STA (13:06)
[2021-03-30 13:30] VITALS: BP 181/117
== END 2021-03-30 13:30 | disposition home or self-care (01) ==
LOC: ED 12:12
DX: R07.89 Other chest pain (principal); M54.5 Low back pain; F17.200 Nicotine dependence, unspecified, uncomplicated
CPT/HCPCS: 36415; 80053; 83690; 84484; 85025; 93005; 96374; 99284

== ENCOUNTER 2021-04-04 10:32 | Emergency (ER) | payer MEDICAID ==
--- NOTE | 2021-04-04 10:47 | ED Physician Documentation ---
PD HPI NVD - Stated complaint Stated Complaint: C+ EXP X4 DAYS- NAUSEA/VOMITING - History obtained from History obtained from: Patient - History of Present Illness Timing - onset: Yesterday Timing - duration: Days (1) Timing - details: Gradual onset, Still present Associated symptoms: No: Fever, Abdominal pain, Chest pain Contributing factors: Sick contact (had exposure to person coughing who tested positive for COVID 5 days ago. He is concerned he is getting it. He is vaccinated in November/December.) Improved by: Vomiting (couiple of times last night.). No: Eating Worsened by: Eating Similar symptoms before: Has not had sx before Review of Systems Constitutional: denies: Fever, Chills, Myalgias Nose: denies: Rhinorrhea / runny nose, Congestion Throat: denies: Sore throat Cardiac: denies: Chest pain / pressure Respiratory: denies: Cough GI: reports: Nausea, Vomiting (couple of times last night. not today, but still nausea.). denies: Abdominal Pain, Diarrhea Skin: denies: Rash, Lesions Musculoskeletal: denies: Extremity swelling Neurologic: denies: Near syncope PD PAST MEDICAL HISTORY - Past Medical History Cardiovascular: Hypertension, High cholesterol, Coronary artery disease, Angina Respiratory: Asthma Neuro: Headaches Endocrine/Autoimmune: Type 2 diabetes GI: None : None HEENT: None Psych: Depression, Anxiety, ADD/ADHD Musculoskeletal: Chronic back pain, Other Derm: None - Past Surgical History Past Surgical History: Yes Ortho: Spine surgery Cardiovascular: Cardiac catheterization - Present Medications Home Medications: Ambulatory Orders Medication Instructions Recorded Confirmed Metoprolol Succinate 50 mg PO BID 01/04/18 11/16/20 Albuterol Sulfate [Albuterol 1 - 2 puffs IH Q4HR PRN 06/04/20 11/16/20 Sulfate Hfa] Gabapentin [Neurontin] 600 mg PO TID 06/07/20 11/16/20 Sertraline [Zoloft] 50 mg PO DAILY 07/12/20 11/16/20 Aspirin EC [Ecotrin] 81 mg ORAL DAILY 09/05/20 11/16/20 Acetaminophen [Tylenol] 650 mg PO Q6H PRN #40 tab 12/25/20 Lidocaine Patch 5% [Lidoderm Patch] 1 each TOP DAILY #10 patch 12/25/20 dexAMETHasone [Decadron] 4 mg PO DAILY #5 tablet 12/25/20 tiZANidine [Zanaflex] 4 mg PO Q8H PRN #25 tablet 12/25/20 Ondansetron Odt [Zofran] 4 mg TL Q6H PRN #10 tablet 04/04/21 - Allergies Allergies/Adverse Reactions: Allergies Allergy/AdvReac Type Severity Reaction Status Date / Time droperidol AdvReac Unknown Verified 04/04/21 10:52 - Social History Does the pt smoke?: Yes Smoking Status: Current every day smoker Does the pt drink ETOH?: No Does the pt have substance abuse?: No - Immunizations Immunizations are current?: Yes - POLST Patient has POLST: No POLST Status: Full Code PD ED PE NORMAL - Vitals Vital signs reviewed: Yes - General General: Alert and oriented X 3, No acute distress (but somewhat anxious), Well developed/nourished - HEENT HEENT: Ears normal, Pharynx benign - Neck Neck: Supple, no meningeal sign, No adenopathy - Cardiac Cardiac: RRR, No murmur - Respiratory Respiratory: Clear bilaterally - Abdomen Abdomen: Normal bowel sounds, Soft, Non tender, Non distended - Derm Derm: Normal color, Warm and dry - Extremities Extremities: No edema, No calf tenderness / cord - Neuro Neuro: Alert and oriented X 3, No motor deficit, Normal speech Results - Vitals Vitals: Vital Signs - 24 hr 04/04/21 04/04/21 10:48 11:50 Temperature 37 C Heart Rate 85 89 Respiratory 16 Rate Blood Pressure 186/104 H 174/102 H O2 Saturation 100 89 L Oxygen O2 Source Room air PD MEDICAL DECISION MAKING - ED course Complexity details: considered differential (abd not tender and no pain. Consider food intolerance/"poisoning", viral GE, malabsoprtion, other process. ), d/w patient Departure - Departure Disposition: 01 Home, Self Care Clinical Impression: Close exposure to COVID-19 virus Nausea and vomiting Qualifiers: Vomiting type: unspecified Vomiting Intractability: non-intractable Qualified Code(s): R11.2 - Nausea with vomiting, unspecified Condition: Stable Instructions: ED Nausea Vomiting Follow-Up: Mt Mitchell MD [Primary Care Provider] - Prescriptions: Ondansetron Odt [Zofran] 4 mg TL Q6H PRN #10 tablet PRN Reason: Nausea / Vomiting Comments: We did do a Covid test and that should result the next day or 2. Your nausea and vomiting hopefully are just a stomach irritation or related to some [place] as opposed to a viral infection. See how you do today with the antiemetic of ondansetron as needed for nausea and bland food and frequent fluids. Recheck if persistent symptoms of vomiting or you develop specific abdominal pain bloody stool or other concerns. You have a Covid test pending. You need to self quarantine until the result is done and negative. Do not leave your house. Do not get near anybody. The results should be done in 48 to 72 hours, but sometimes longer. We will call with a positive result, the fastest way to get a negative result for confirmation though is to go to the hospital website at [email or web address], click on the my [facility] tab and sign up for the patient portal. If any friends or family get sick and would like to have a Covid test done, but do not have signs or symptoms that would necessitate being hospitalized, we encourage testing through our coronavirus swabbing station, call [phone] to schedule an appointment. I transmitted your script to [facility] pharmacy. Forms: Activity restrictions Discharge Date/Time: 04/04/21 11:55
[2021-04-04] MEDS ORDERED: ONDANSETRON 4 MG/2 ML VIAL IM STA (11:34)
[2021-04-04 11:51] VITALS: BP 174/102
== END 2021-04-04 11:55 | disposition home or self-care (01) ==
LOC: ED 10:32
DX: Z20.822 Contact with and (suspected) exposure to COVID-19 (principal); R11.2 Nausea with vomiting, unspecified; F17.200 Nicotine dependence, unspecified, uncomplicated
CPT/HCPCS: 96372; 99283

== ENCOUNTER 2021-07-15 11:46 | Outpatient (CLI) | payer MEDICAID ==
--- NOTE | 2021-07-15 13:17 | XRAY Report ---
PROCEDURE: Elbow 3 View LT INDICATIONS: LEFT LATERAL EPICONDYLITIS TECHNIQUE: 3 views of the elbow were acquired. COMPARISON: None FINDINGS: Bones: No fractures or dislocations. No suspicious bony lesions. Soft tissues: No elbow joint effusion. No suspicious soft tissue calcifications. IMPRESSION: No acute fracture. No osseous lesion. If symptoms and/or clinical suspicion for pathology continue, f urther assessment with repeat plain films, or advanced imaging (e.g., CT, MRI, or bone scan) is recom mended for further assessment. Reviewed by: Yolanda Fierro MD on 07/15/2021 1:16 PM PST Approved by: Yolanda Fierro MD on 07/15/2021 1:16 PM PST Station ID: [id number]
== END 2021-07-15 11:47 | disposition home or self-care (01) ==
LOC: DI.WOS 11:46
PROVIDERS: ATTEND Physician Assistant
DX: M77.12 Lateral epicondylitis, left elbow (principal)

== ENCOUNTER 2021-09-12 17:26 | Emergency (ER) | payer MEDICAID ==
[2021-09-12] MEDS ORDERED: HYDROmorphone 1 MG/ML CARPUJECT IM STA (17:51)
--- NOTE | 2021-09-12 18:06 | ED Physician Documentation ---
History of Present Illness - Stated complaint Stated Complaint: LT SIDE NECK PX - Chief complaint Chief Complaint: Back Pain - Additonal information Additional information: 51-year-old male presents emergency department for evaluation of 3 days left- sided neck pain. He has a history of chronic pain in the neck. He has had an MRI completed as well as evaluation at [facility] neurosurgery. He states that for many months he has been pain-free up until about 3 days ago. Reports sudden left-sided neck pain while drinking coffee. No falls or trauma. He has been icing, lightly massaging and taking Motrin and Tylenol without relief of pain. He understands that the emergency department cannot dispense new chronic narcotics to him today but he would like some pain control while here in the emergency department. No paresthesias that are new though at baseline he does have some mild left arm weakness which is unchanged. Review of Systems Constitutional: denies: Fever, Chills Eyes: reports: Reviewed and negative Nose: reports: Reviewed and negative Throat: reports: Dental pain / toothache Cardiac: reports: Reviewed and negative Respiratory: reports: Reviewed and negative GI: reports: Reviewed and negative : reports: Reviewed and negative Skin: denies: Rash Musculoskeletal: reports: Neck pain, Extremity pain. denies: Joint pain, Extremity swelling Neurologic: reports: Reviewed and negative PD PAST MEDICAL HISTORY - Past Medical History Cardiovascular: Hypertension, High cholesterol, Coronary artery disease, Angina Respiratory: Asthma Neuro: Headaches Endocrine/Autoimmune: Type 2 diabetes GI: None : None HEENT: None Psych: Depression, Anxiety, ADD/ADHD Musculoskeletal: Chronic back pain, Other Derm: None - Past Surgical History Past Surgical History: Yes Ortho: Spine surgery Cardiovascular: Cardiac catheterization - Present Medications Home Medications: Ambulatory Orders Medication Instructions Recorded Confirmed Metoprolol Succinate 50 mg PO BID 01/04/18 11/16/20 Albuterol Sulfate [Albuterol 1 - 2 puffs IH Q4HR PRN 06/04/20 11/16/20 Sulfate Hfa] Gabapentin [Neurontin] 600 mg PO TID 06/07/20 11/16/20 Sertraline [Zoloft] 50 mg PO DAILY 07/12/20 11/16/20 Aspirin EC [Ecotrin] 81 mg ORAL DAILY 09/05/20 11/16/20 Acetaminophen [Tylenol] 650 mg PO Q6H PRN #40 tab 12/25/20 Lidocaine Patch 5% [Lidoderm Patch] 1 each TOP DAILY #10 patch 12/25/20 dexAMETHasone [Decadron] 4 mg PO DAILY #5 tablet 12/25/20 tiZANidine [Zanaflex] 4 mg PO Q8H PRN #25 tablet 12/25/20 Ondansetron Odt [Zofran] 4 mg TL Q6H PRN #10 tablet 04/04/21 - Allergies Allergies/Adverse Reactions: Allergies Allergy/AdvReac Type Severity Reaction Status Date / Time droperidol AdvReac Unknown Verified 09/12/21 17:32 - Social History Does the pt smoke?: Yes Smoking Status: Current every day smoker Does the pt drink ETOH?: No Does the pt have substance abuse?: No - Immunizations Immunizations are current?: Yes - POLST Patient has POLST: No POLST Status: Full Code PD ED PE EXPANDED - General General: Alert, No acute distress - Neck Neck: Soft tissue TTP (Full lateral Range of motion of the neck. Forward flexion and posterior extension preserved. Left paraspinous cervical tenderness with radiation to the trapezius. No midline spinous process tenderness. Motor strength 4-5 on the left arm unchanged from baseline.). No: Bony TTP Results - Vitals Vitals: Vital Signs - 24 hr 09/12/21 17:30 Temperature 36.1 C L Heart Rate 127 H Respiratory 20 Rate Blood Pressure 154/108 H O2 Saturation 100 Oxygen O2 Source Room air PD MEDICAL DECISION MAKING - ED course Complexity details: reviewed results, re-evaluated patient, considered differential, d/w patient ED course: 51-year-old male presents emergency department with 3 days of neck pain in the setting of known history of spinal fusion as well as recent MRI and evaluation at [facility]. Unfortunately due to patient's history of driving after receiving narcotics as well as concerns for opioid abuse we are unable to prescribe narcotics to him today. This was discussed with the patient and he is comfortable not receiving a prescription on discharge she simply requesting some analgesia here in the emergency department. He feels that the Flexeril, Motrin and Tylenol at home were not helping. Thus I did give him a one-time dose of Dilaudid. He is shares me that he has his father driving him home. Notified him of that if he was found to be driving a vehicle we would notify icon. Emergent return precautions were discussed but given the chronicity no advanced imaging was performed today Departure - Departure Disposition: 01 Home, Self Care Clinical Impression: Neck pain on left side Condition: Stable Record reviewed to determine appropriate education?: Yes Instructions: ED Neck Back Pain General Comments: Shiv, you are seen today in the emergency department for neck pain. We did give you a one-time dose of Dilaudid here in the emergency department but as you know we are unable to prescribe opiate or narcotic prescriptions for you on discharge. It is important you continue to follow-up with your primary care doctor next Thursday as scheduled as well as neurosurgery at [facility].
[2021-09-12 18:20] VITALS: BP 134/79
== END 2021-09-12 18:15 | disposition home or self-care (01) ==
LOC: ED 17:26
DX: M54.2 Cervicalgia (principal); I10 Essential (primary) hypertension; E11.9 Type 2 diabetes mellitus without complications; F17.200 Nicotine dependence, unspecified, uncomplicated
CPT/HCPCS: 96372; 99282; 99283; J1170

== ENCOUNTER 2021-12-17 12:45 | Emergency (ER) | payer MEDICAID ==
[2021-12-17] MEDS ORDERED: HYDROmorphone 1 MG/ML CARPUJECT IM STA (14:44)
--- NOTE | 2021-12-17 14:47 | ED Physician Documentation ---
History of Present Illness - Stated complaint Stated Complaint: FEVER,NECK & HEAD PAIN - Chief complaint Chief Complaint: General - Additonal information Additional information: 51-year-old male who is well-known to this emergency department presents the emergency department with worsening left-sided neck pain. He does have a history of fairly significant degenerative disc disease as well as spinal canal stenosis. He is followed by neurosurgery at [facility]. His pain is typically managed with Tylenol ibuprofen and Flexeril. However these meds have not helped. He was worried that he may potentially be developing a tooth infection as he had some soreness on the right lower jaw. But both of his ears began to feel hot flushed and burn so 3 days ago he took clindamycin that he had leftover. Despite the clindamycin he feels that his ears have been hot. He reports subjective fevers though no measurement was obtained. He is afebrile here. He does appear to be at his usual baseline health Review of Systems Constitutional: denies: Fever, Chills Ears: reports: Other (Burning in ears) Nose: reports: Reviewed and negative Throat: reports: Reviewed and negative Cardiac: reports: Reviewed and negative Respiratory: reports: Reviewed and negative GI: reports: Reviewed and negative Musculoskeletal: reports: Neck pain Neurologic: reports: Reviewed and negative PD PAST MEDICAL HISTORY - Past Medical History Past Medical History: Yes Cardiovascular: Hypertension, High cholesterol, Coronary artery disease, Angina Respiratory: Asthma Neuro: Headaches Endocrine/Autoimmune: Type 2 diabetes GI: GERD : None HEENT: None Psych: Depression, Anxiety, ADD/ADHD Musculoskeletal: Chronic back pain, Other Derm: None - Past Surgical History Past Surgical History: Yes Ortho: Spine surgery Cardiovascular: Cardiac catheterization - Present Medications Home Medications: Ambulatory Orders Medication Instructions Recorded Confirmed Metoprolol Succinate 50 mg PO BID 01/04/18 12/17/21 Albuterol Sulfate [Albuterol 1 - 2 puffs IH Q4HR PRN 06/04/20 12/17/21 Sulfate Hfa] Sertraline [Zoloft] 50 mg PO DAILY 07/12/20 12/17/21 Aspirin EC [Ecotrin] 81 mg ORAL DAILY 09/05/20 12/17/21 Acetaminophen [Tylenol] 650 mg PO Q6H PRN #40 tab 12/25/20 12/17/21 Gabapentin [Neurontin] 300 mg PO TID #12 cap 12/17/21 - Allergies Allergies/Adverse Reactions: Allergies Allergy/AdvReac Type Severity Reaction Status Date / Time droperidol AdvReac Unknown Verified 12/17/21 12:58 - Social History Does the pt smoke?: Yes Smoking Status: Current every day smoker Does the pt drink ETOH?: Yes Does the pt have substance abuse?: No - Immunizations Immunizations are current?: Yes - POLST Patient has POLST: No POLST Status: Full Code PD ED PE NORMAL - General General: Alert and oriented X 3, No acute distress, Well developed/nourished - HEENT HEENT: Ears normal, Moist mucous membranes. No: Dentition benign (Globally poor dentition most of the teeth are missing or rotted at the gumline. No obvious gumline swelling erythema or fluctuance noted especially on the right lower jaw) - Neck Neck: Supple, no meningeal sign, No adenopathy, Other (Full range of motion of the neck. Normal forward flexion and posterior extension. Motor strength 5 of 5 shoulders elbows wrists and hands bilaterally) - Cardiac Cardiac: RRR, No murmur - Respiratory Respiratory: No respiratory distress, Clear bilaterally - Abdomen Abdomen: Normal bowel sounds Results - Vitals Vitals: Vital Signs - 24 hr 12/17/21 12/17/21 12:59 13:04 Temperature 37 C 37 C Heart Rate 116 H 116 H Respiratory 18 18 Rate Blood Pressure 172/103 H 172/103 H O2 Saturation 97 97 Oxygen O2 Source Room air PD MEDICAL DECISION MAKING - ED course Complexity details: reviewed results, re-evaluated patient, d/w patient ED course: 51-year-old male presents emergency department with burning sensation in both of his ears. The ENT exam is entirely unremarkable for findings of acute otitis externa, Otitis media or ear cellulitis. He has chronic and unchanged neck pain. I suspect that the burning sensation may be a peripheral nerve pathology. Patient is given a dose of Dilaudid here in the emergency department. His father is driving him home. I am going to prescribe 4 days of gabapentin. He will continue follow-up with [facility] emergent return precautions otherwise discussed Departure - Departure Disposition: 01 Home, Self Care Clinical Impression: Chronic neck pain, Burning sensation Condition: Stable Record reviewed to determine appropriate education?: Yes Prescriptions: Gabapentin [Neurontin] 300 mg PO TID #12 cap Comments: Satnam you are seen today in the ER because for the last few days you have had a burning sensation in both your ears and they felt warm. You were concerned that you could have a dental infection. Though you do need dental repair there is nothing in your exam to suggest infection within the mouth. There is also nothing to suggest infection in or around your ears. I would stop taking the clindamycin. Often burning pain is a sign that nerves are inflamed. Because you have chronic neck pain it is possible that you have some peripheral nerves in your neck that are inflamed causing this sensation. Please fill the prescription for the gabapentin and take 3 times daily for the next 4 days. You can continue your other routine pain medications. If at any point you find that you have jaw swelling, have severe pain in the mouth, drainage from your ears or weakness in your arms and you should return immediately to the ER for second evaluation The prescription for the gabapentin has been sent to the [facility] in [place]
[2021-12-17 15:13] VITALS: BP 156/92
== END 2021-12-17 15:14 | disposition home or self-care (01) ==
LOC: ED 12:45
DX: M54.2 Cervicalgia (principal); G89.29 Other chronic pain; I10 Essential (primary) hypertension; E11.9 Type 2 diabetes mellitus without complications; F17.200 Nicotine dependence, unspecified, uncomplicated
CPT/HCPCS: 96372; 99282; 99283; J1170

== ENCOUNTER 2022-09-27 15:44 | Emergency (ER) | payer MEDICAID ==
[2022-09-27 16:06] VITALS: BP 149/100
--- OUTSIDE RECORDS SUMMARY | 2022-09-27 16:28 | EXTERNAL MEDICAL SUMMARY RPT | Continuity of Care Document ---
:1970 Author Organization [place] Address [address] [place] [address] Phone Care Team Providers Name Role Phone Unavailable Unavailable Unavailable [facility] Unavailable Unavailable Allergies and Intolerances date description facility type (no date) [facility] (unknown) (no date) [facility] (unknown) Encounters No information. Functional Status No information. Immunizations No information. Medications date description facility 2022-07-12 00:00 Oxycodone-Acetaminophen [facility] 2022-09-09 00:00 Oxycodone-Acetaminophen [facility] 2022-09-10 00:00 Oxycodone-Acetaminophen [facility] 2022-07-12 00:00 Lidocaine [facility] 2022-07-12 00:00 Prednisone [facility] 2022-09-10 00:00 [facility] Problems date description facility 2022-07-12 00:00 Cervical radicular pain [facility] 2022-07-12 00:00 Lumbar radiculopathy [facility] 2022-09-09 00:00 Chest pain [facility] 2022-09-10 08:37 Chest pain, unspecified [facility] 2022-09-10 09:58 Chest pain, unspecified [facility] 2022-09-10 12:49 Chest pain, unspecified [facility] 2022-09-10 13:08 Chest pain, unspecified [facility] 2022-09-10 13:09 Chest pain, unspecified [facility] 2022-09-10 16:24 Chest pain, unspecified [facility] 2022-09-11 08:54 Chest pain, unspecified [facility] 2022-09-12 11:07 Chest pain, unspecified [facility] 2022-09-12 11:50 Chest pain, unspecified [facility] Procedures date description facility 2022-07-12 00:00 XR lumbar spine and sacrum, 3 views [facility] 2022-09-09 00:00 NM SPECT imaging myocard perfus w [facility] incl rest, stress and redistrib 2022-09-09 00:00 X-ray of chest, single [facility] Results/Labs test date author facility value unit interpret ation Result panel 1 (unknown) (no date[facility] Result panel 2 (unknown) (no date) ([facility] Result panel 3 (unknown) (no date) (unknown[facility] Result panel 4 (unknown) (no date) (unknown[facility] Result panel 5 (unknown) (no date) (unknown[facility] Result panel 6 (unknown) (no date) (unknown[facility] Result panel 7 (unknown) (no date) (unknown[facility] Result panel 8 (unknown) (no date) (unknown[facility] Result panel 9 (unknown) (no date) (unknown[facility] Result panel 10 (unknown) (no date) (unknown[facility] Result panel 11 (unknown) (no date) (unknown[facility] Result panel 12 (unknown) (no date) (unknown[facility] Result panel 13 (unknown) (no date) (unknown[facility] Result panel 14 (unknown) (no date) (unknown[facility] Result panel 15 (unknown) (no date) (unknown[facility] Result panel 16 (unknown) (no date) (unknown[facility] Result panel 17 (unknown) (no date) (unknown[facility] Result panel 18 (unknown) (no date) (unknown[facility] Result panel 19 (unknown) (no date) (unknown[facility] Result panel 20 (unknown) (no date) (unknown[facility] Result panel 21 (unknown) (no date) (unknown[facility] Result panel 22 (unknown) (no date) (unknown[facility] Result panel 23 (unknown) (no date) (unknown[facility] Result panel 24 (unknown) (no date) (unknown[facility] Result panel 25 (unknown) (no date) (unknown[facility] Result panel 26 (unknown) (no date) (unknown[facility] Result panel 27 (unknown) (no date) (unknown[facility] Result panel 28 (unknown) (no date) (unknown[facility] Result panel 29 (unknown) (no date) (unknown[facility] Result panel 30 (unknown) (no date) (unknown[facility] Result panel 31 (unknown) (no date) (unknown[facility] Result panel 32 (unknown) (no date) (unknown[facility] Result panel 33 (unknown) (no date) (unknown[facility] Result panel 34 (unknown) (no date) (unknown[facility] Result panel 35 (unknown) (no date) (unknown[facility] Result panel 36 (unknown) (no date) (unknown[facility] Result panel 37 (unknown) (no date) (unknown[facility] Result panel 38 (unknown) (no date) (unknown[facility] Result panel 39 (unknown) (no date) (unknown[facility] Result panel 40 (unknown) (no date) (unknown[facility] Result panel 41 (unknown) (no date) (unknown[facility] Result panel 42 (unknown) (no date) (unknown[facility] Result panel 43 (unknown) (no date) (unknown[facility] Result panel 44 (unknown) (no date) (unknown[facility] Result panel 45 (unknown) (no date) (unknown[facility] Result panel 46 (unknown) (no date) (unknown[facility] Result panel 47 (unknown) (no date) (unknown[facility] Result panel 48 (unknown) (no date) (unknown[facility] Result panel 49 (unknown) (no date) (unknown[facility] Result panel 50 (unknown) (no date) (unknown[facility] Result panel 51 (unknown) (no date) (unknown[facility] Result panel 52 (unknown) (no date) (unknown[facility] Result panel 53 (unknown) (no date) (unknown[facility] Result panel 54 (unknown) (no date) (unknown[facility] Result panel 55 (unknown) (no date) (unknown[facility] Result panel 56 (unknown) (no date) (unknown[facility] Result panel 57 (unknown) (no date) (unknown[facility] Result panel 58 (unknown) (no date) (unknown[facility] Result panel 59 (unknown) (no date) (unknown[facility] Result panel 60 (unknown) (no date) (unknown[facility] Result panel 61 (unknown) (no date) (unknown[facility] Result panel 62 (unknown) (no date) (unknown[facility] Result panel 63 (unknown) (no date) (unknown[facility] Result panel 64 (unknown) (no date) (unknown[facility] Result panel 65 (unknown) (no date) (unknown[facility] Result panel 66 (unknown) (no date) (unknown[facility]) Result panel 67 (unknown) (no date) (unknown[facility] Result panel 68 (unknown) (no date) (unknown[facility] Result panel 69 (unknown) (no date) (unknown[facility] Result panel 70 (unknown) (no date) (unknown[facility] Result panel 71 (unknown) (no date) (unknown[facility] Result panel 72 (unknown) (no date) (unknown[facility] Result panel 73 (unknown) (no date) (unknown[facility] Result panel 74 (unknown) (no date) (unknown[facility]) Result panel 75 (unknown) (no date) (unknown[facility] Result panel 76 (unknown) (no date) (unknown[facility] Result panel 77 (unknown) (no date) (unknown[facility] Result panel 78 (unknown) (no date) (unknown[facility] Result panel 79 (unknown) (no date) (unknown[facility] Result panel 80 (unknown) (no date) (unknown[facility] Result panel 81 (unknown) (no date) (unknown[facility] Result panel 82 (unknown) (no date) (unknown[facility] Result panel 83 (unknown) (no date) (unknown[facility] Result panel 84 (unknown) (no date) (unknown[facility] Result panel 85 (unknown) (no date) (unknown[facility] Result panel 86 (unknown) (no date) (unknown[facility] Result panel 87 (unknown) (no date) (unknown[facility] Result panel 88 (unknown) (no date) (unknown[facility] Result panel 89 (unknown) (no date) (unknown[facility] Result panel 90 (unknown) (no date) (unknown[facility] Result panel 91 (unknown) (no date) (unknown[facility] Result panel 92 (unknown) (no date) (unknown[facility]) Result panel 93 (unknown) (no date) (unknown[facility] Result panel 94 (unknown) (no date) (unknown[facility] Result panel 95 (unknown) (no date) (unknown[facility] Result panel 96 (unknown) (no date) (unknown[facility] Result panel 97 (unknown) (no date) (unknown[facility] Result panel 98 (unknown) (no date) (unknown[facility] Result panel 99 (unknown) (no date) (unknown[facility] Result panel 100 (unknown) (no date) (unknown[facility] Result panel 101 (unknown) (no date) (unknown[facility] Result panel 102 (unknown) (no date) (unknown[facility] Result panel 103 (unknown) (no date) (unknown[facility] Result panel 104 (unknown) (no date) (unknown[facility] Result panel 105 (unknown) (no date) (unknown[facility] Result panel 106 (unknown) (no date) (unknown[facility] Result panel 107 (unknown) (no date) (unknown[facility] Result panel 108 (unknown) (no date) (unknown[facility] Result panel 109 (unknown) (no date) (unknown[facility] Result panel 110 (unknown) (no date) (unknown[facility] Result panel 111 (unknown) (no date) (unknown[facility] Result panel 112 (unknown) (no date) (unknown[facility] Result panel 113 (unknown) (no date) (unknown[facility] Result panel 114 (unknown) (no date) (unknown[facility] Result panel 115 (unknown) (no date) (unknown[facility] Result panel 116 (unknown) (no date) (unknown[facility] Result panel 117 (unknown) (no date) (unknown[facility]) Result panel 118 (unknown) (no date) (unknown[facility] Result panel 119 (unknown) (no date) (unknown[facility] Result panel 120 (unknown) (no date) (unknown[facility] Result panel 121 (unknown) (no date) (unknown[facility] Result panel 122 (unknown) (no date) (unknown[facility] Result panel 123 (unknown) (no date) (unknown[facility] Result panel 124 (unknown) (no date) (unknown[facility] Result panel 125 (unknown) (no date) (unknown[facility] Result panel 126 (unknown) (no date) (unknown[facility] Result panel 127 (unknown) (no date) (unknown[facility] Result panel 128 (unknown) (no date) (unknown[facility] Result panel 129 (unknown) (no date) (unknown[facility] Result panel 130 (unknown) (no date) (unknown[facility] Result panel 131 (unknown) (no date) (unknown[facility] Result panel 132 (unknown) (no date) (unknown[facility] Result panel 133 (unknown) (no date) (unknown[facility] Result panel 134 (unknown) (no date) (unknown[facility] Result panel 135 (unknown) (no date) (unknown[facility] Result panel 136 (unknown) (no date) (unknown[facility] Result panel 137 (unknown) (no date) (unknown[facility] Result panel 138 (unknown) (no date) (unknown[facility] Result panel 139 (unknown) (no date) (unknown[facility] Result panel 140 (unknown) (no date) (unknown[facility] Result panel 141 (unknown) (no date) (unknown[facility]) Result panel 142 (unknown) (no date) (unknown[facility] Result panel 143 (unknown) (no date) (unknown[facility] Result panel 144 (unknown) (no date) (unknown[facility] Result panel 145 (unknown) (no date) (unknown[facility] Result panel 146 (unknown) (no date) (unknown[facility]) Result panel 147 (unknown) (no date) (unknown[facility] Result panel 148 (unknown) (no date) (unknown[facility]) Result panel 149 (unknown) (no date) (unknown[facility] Result panel 150 (unknown) (no date) (unknown[facility] Result panel 151 (unknown) (no date) (unknown) [facility] Result panel 152 (unknown) (no date) (unknown) [facility] Result panel 153 (unknown) (no date) (unknown) [facility] Result panel 154 (unknown) (no date) (unknown) [facility] Result panel 155 (unknown) (no date) (unknown) [facility] Result panel 156 (unknown) (no date) (unknown) [facility] Result panel 157 (unknown) (no date) (unknown) [facility] Result panel 158 (unknown) (no date) (unknown) [facility] Result panel 159 (unknown) (no date) (unknown) [facility] Result panel 160 (unknown) (no date) (unknown) [facility] Result panel 161 (unknown) (no date) (unknown) [facility]) Result panel 162 (unknown) (no date) (unknown) [facility] Result panel 163 (unknown) (no date) (unknown) [facility] Result panel 164 (unknown) (no date) (unknown) [facility]) Result panel 165 (unknown) (no date) (unknown) [facility] Result panel 166 (unknown) (no date) (unknown) [facility] Result panel 167 (unknown) (no date) (unknown) [facility] Result panel 168 (unknown) (no date) (unknown) [facility] Result panel 169 (unknown) (no date) (unknown) [facility] Result panel 170 (unknown) (no date) (unknown) [facility] Result panel 171 (unknown) (no date) (unknown) [facility] Result panel 172 (unknown) (no date) (unknown) [facility] Result panel 173 (unknown) (no date) (unknown) [facility] Result panel 174 (unknown) (no date) (unknown) [facility] Result panel 175 (unknown) (no date) (unknown) [facility] Result panel 176 (unknown) (no date) (unknown[facility] Result panel 177 (unknown) (no date) (unknown) [facility] Result panel 178 (unknown) (no date) (unknown[facility] Result panel 179 (unknown) (no date) (unknown) [facility] Result panel 180 (unknown) (no date) (unknown[facility] Result panel 181 (unknown) (no date) (unknown[facility] Result panel 182 (unknown) (no date) (unknown[facility] Result panel 183 (unknown) (no date) (unknown[facility] Result panel 184 (unknown) (no date) (unknown[facility] Result panel 185 (unknown) (no date) (unknown[facility] Result panel 186 (unknown) (no date) (unknown[facility] Result panel 187 (unknown) (no date) (unknown[facility] Result panel 188 (unknown) (no date) (unknown) [facility] Result panel 189 (unknown) (no date) (unknown) [facility] Result panel 190 (unknown) (no date) (unknown) [facility] Result panel 191 (unknown) (no date) (unknown) [facility] Result panel 192 (unknown) (no date) (unknown) [facility] Result panel 193 (unknown) (no date) (unknown[facility] Result panel 194 (unknown) (no date) (unknown[facility] Result panel 195 (unknown) (no date) (unknown[facility] Result panel 196 (unknown) (no date) (unknown[facility] Result panel 197 (unknown) (no date) (unknown) [facility] Result panel 198 (unknown) (no date) (unknown[facility] Result panel 199 (unknown) (no date) (unknown) [facility] Result panel 200 (unknown) (no date) (unknown) [facility] Result panel 201 (unknown) (no date) (unknown) [facility] Result panel 202 (unknown) (no date) (unknown[facility] Result panel 203 (unknown) (no date) (unknown) [facility] Result panel 204 (unknown) (no date) (unknown) [facility] Result panel 205 (unknown) (no date) (unknown[facility] Result panel 206 (unknown) (no date) (unknown[facility] Result panel 207 (unknown) (no date) (unknown[facility] Result panel 208 (unknown) (no date) (unknown) [facility] Result panel 209 (unknown) (no date) (unknown) [facility] Result panel 210 (unknown) (no date) (unknown[facility] Result panel 211 (unknown) (no date) (unknown[facility] Result panel 212 (unknown) (no date) (unknown[facility] Result panel 213 (unknown) (no date) (unknown[facility] Result panel 214 (unknown) (no date) (unknown[facility] Result panel 215 (unknown) (no date) (unknown) [facility] Result panel 216 (unknown) (no date) (unknown) [facility] Result panel 217 (unknown) (no date) (unknown) [facility]) Result panel 218 (unknown) (no date) (unknown[facility] Result panel 219 (unknown) (no date) [facility]) Result panel 220 (unknown) (no date) (unknown) [facility] Result panel 221 (unknown) (no date) (unknown) [facility]) Result panel 222 (unknown) (no date) (unknown) [facility]) Result panel 223 (unknown) (no date) (unknown) [facility]) Result panel 224 (unknown) (no date) (unknown) [facility]) Result panel 225 (unknown) (no date) (unknown) [facility]) Result panel 226 (unknown) (no date) (unknown) [facility] Result panel 227 (unknown) (no date) (unknown) [facility]) Result panel 228 (unknown) (no date) (unknown) [facility]) Result panel 229 (unknown) (no date) (unknown) [facility]) Result panel 230 (unknown) (no date) (unknown) [facility]) Result panel 231 (unknown) (no date) (unknown[facility]) Result panel 232 (unknown) (no date) (unknown) [facility]) Result panel 233 (unknown) (no date) (unknown) [facility] Result panel 234 (unknown) (no date) (unknown) [facility]) Result panel 235 (unknown) (no date) (unknown) [facility] Result panel 236 (unknown) (no date) (unknown) [facility] Result panel 237 (unknown) (no date) (unknown) [facility] Result panel 238 (unknown) (no date) (unknown) [facility] Result panel 239 (unknown) (no date) (unknown) [facility] Result panel 240 (unknown) (no date) (unknown) [facility] Result panel 241 (unknown) (no date) (unknown[facility] Result panel 242 (unknown) (no date) (unknown) [facility]) Result panel 243 (unknown) (no date) (unknown) [facility] Result panel 244 (unknown) (no date) (unknown[facility]) Result panel 245 (unknown) (no date) (unknown) [facility] Result panel 246 (unknown) (no date) (unknown) [facility]) Result panel 247 (unknown) (no date) (unknown) [facility]) Result panel 248 (unknown) (no date) (unknown) [facility]) Result panel 249 (unknown) (no date) (unknown) [facility]) Result panel 250 (unknown) (no date) (unknown) [facility]) Result panel 251 (unknown) (no date) (unknown) [facility]) Result panel 252 (unknown) (no date) (unknown) [facility]) Result panel 253 (unknown) (no date) (unknown) [facility]) Result panel 254 (unknown) (no date) (unknown) [facility]) Result panel 255 (unknown) (no date) (unknown) [facility]) Result panel 256 (unknown) (no date) (unknown) [facility]) Result panel 257 (unknown) (no date) (unknown) [facility]) Result panel 258 (unknown) (no date) (unknown) [facility]) Result panel 259 (unknown) (no date) (unknown) [facility]) Result panel 260 (unknown) (no date) (unknown) [facility]) Result panel 261 (unknown) (no date) (unknown) [facility]) Result panel 262 (unknown) (no date) (unknown) [facility]) Result panel 263 (unknown) (no date) (unknown) [facility]) Result panel 264 (unknown) (no date) (unknown) [facility]) Result panel 265 (unknown) (no date) (unknown) [facility]) Result panel 266 (unknown) (no date) (unknown) [facility]) Result panel 267 (unknown) (no date) (unknown) [facility]) Result panel 268 (unknown) (no date) (unknown) [facility]) Result panel 269 (unknown) (no date) (unknown) [facility]) Result panel 270 (unknown) (no date) (unknown) [facility]) Result panel 271 (unknown) (no date) (unknown) [facility]) Result panel 272 (unknown) (no date) (unknown) [facility]) Result panel 273 (unknown) (no date) (unknown) [facility]) Result panel 274 (unknown) (no date) (unknown) [facility]) Result panel 275 (unknown) (no date) (unknown) [facility]) Result panel 276 (unknown) (no date) (unknown) [facility]) Result panel 277 (unknown) (no date) (unknown) [facility]) Result panel 278 (unknown) (no date) (unknown) [facility]) Result panel 279 (unknown) (no date) (unknown) [facility]) Result panel 280 (unknown) (no date) (unknown) [facility]) Result panel 281 (unknown) (no date) (unknown) [facility]) Result panel 282 (unknown) (no date) (unknown) [facility]) Result panel 283 (unknown) (no date) (unknown) [facility]) Result panel 284 (unknown) (no date) (unknown) [facility]) Result panel 285 (unknown) (no date) (unknown) [facility]) Result panel 286 (unknown) (no date) (unknown) [facility]) Result panel 287 (unknown) (no date) (unknown) [facility]) Result panel 288 (unknown) (no date) (unknown) [facility]) Result panel 289 (unknown) (no date) (unknown) [facility]) Result panel 290 (unknown) (no date) (unknown) [facility]) Result panel 291 (unknown) (no date) (unknown) [facility]) Result panel 292 (unknown) (no date) (unknown) [facility]) Result panel 293 (unknown) (no date) (unknown) [facility]) Result panel 294 (unknown) (no date) (unknown) [facility]) Result panel 295 (unknown) (no date) (unknown) [facility]) Result panel 296 (unknown) (no date) (unknown) [facility]) Result panel 297 (unknown) (no date) (unknown) [facility]) Result panel 298 (unknown) (no date) (unknown) [facility]) Result panel 299 (unknown) (no date) (unknown) [facility]) Result panel 300 (unknown) (no date) (unknown) [facility]) Result panel 301 (unknown) (no date) (unknown) [facility]) Result panel 302 (unknown) (no date) (unknown) [facility]) Result panel 303 (unknown) (no date) (unknown) [facility]) Result panel 304 (unknown) (no date) (unknown) [facility]) Result panel 305 (unknown) (no date) (unknown) [facility]) Result panel 306 (unknown) (no date) (unknown) [facility]) Result panel 307 (unknown) (no date) (unknown) [facility]) Result panel 308 (unknown) (no date) (unknown) [facility]) Result panel 309 (unknown) (no date) (unknown) [facility]) Result panel 310 (unknown) (no date) (unknown) [facility]) Result panel 311 (unknown) (no date) (unknown) [facility]) Result panel 312 (unknown) (no date) (unknown) [facility]) Result panel 313 (unknown) (no date) (unknown) [facility]) Result panel 314 (unknown) (no date) (unknown) [facility]) Result panel 315 (unknown) (no date) (unknown) [facility]) Result panel 316 (unknown) (no date) (unknown) [facility]) Result panel 317 (unknown) (no date) (unknown) [facility]) Result panel 318 (unknown) (no date) (unknown) [facility]) Result panel 319 (unknown) (no date) (unknown) [facility]) Result panel 320 (unknown) (no date) (unknown) [facility]) Result panel 321 (unknown) (no date) (unknown[facility]) Result panel 322 (unknown) (no date) (unknown) [facility]) Result panel 323 (unknown) (no date) (unknown[facility]) Result panel 324 (unknown) (no date) (unknown) [facility]) Result panel 325 (unknown) (no date) (unknown) [facility]) Result panel 326 (unknown) (no date) (unknown) [facility]) Result panel 327 (unknown) (no date) (unknown) [facility]) Result panel 328 (unknown) (no date) (unknown) [facility]) Result panel 329 (unknown) (no date) (unknown) [facility]) Result panel 330 (unknown) (no date) (unknown) [facility]) Result panel 331 (unknown) (no date) (unknown) [facility]) Result panel 332 (unknown) (no date) (unknown) [facility]) Result panel 333 (unknown) (no date) (unknown) [facility]) Result panel 334 (unknown) (no date) (unknown) [facility]) Result panel 335 (unknown) (no date) (unknown) [facility]) Result panel 336 (unknown) (no date) (unknown) [facility]) Result panel 337 (unknown) (no date) (unknown) [facility]) Result panel 338 (unknown) (no date) (unknown) [facility]) Result panel 339 (unknown) (no date) (unknown) [facility]) Result panel 340 (unknown) (no date) (unknown) [facility]) Result panel 341 (unknown) (no date) (unknown) [facility]) Result panel 342 (unknown) (no date) (unknown) [facility]) Result panel 343 (unknown) (no date) (unknown) [facility]) Result panel 344 (unknown) (no date) (unknown) [facility]) Result panel 345 (unknown) (no date) (unknown) [facility]) Result panel 346 (unknown) (no date) (unknown) [facility]) Result panel 347 (unknown) (no date) (unknown) [facility]) Result panel 348 (unknown) (no date) (unknown) [facility]) Result panel 349 (unknown) (no date) (unknown) [facility]) Result panel 350 (unknown) (no date) (unknown) [facility]) Result panel 351 (unknown) (no date) (unknown) [facility]) Result panel 352 (unknown) (no date) (unknown) [facility]) Result panel 353 (unknown) (no date) (unknown) [facility]) Result panel 354 (unknown) (no date) (unknown) [facility]) Result panel 355 (unknown) (no date) (unknown) [facility]) Result panel 356 (unknown) (no date) (unknown) [facility]) Result panel 357 (unknown) (no date) (unknown) [facility]) Result panel 358 (unknown) (no date) (unknown) [facility]) Result panel 359 (unknown) (no date) (unknown) [facility]) Result panel 360 (unknown) (no date) (unknown) [facility]) Result panel 361 (unknown) (no date) (unknown) [facility]) Result panel 362 (unknown) (no date) (unknown) [facility]) Result panel 363 (unknown) (no date) (unknown) [facility]) Result panel 364 (unknown) (no date) (unknown) [facility]) Result panel 365 (unknown) (no date) (unknown) [facility]) Result panel 366 (unknown) (no date) (unknown) [facility]) Result panel 367 (unknown) (no date) (unknown) [facility]) Result panel 368 (unknown) (no date) (unknown) [facility]) Result panel 369 (unknown) (no date) (unknown) [facility]) Result panel 370 (unknown) (no date) (unknown) [facility]) Result panel 371 (unknown) (no date) (unknown) [facility]) Result panel 372 (unknown) (no date) (unknown) [facility]) Result panel 373 (unknown) (no date) (unknown) [facility]) Result panel 374 (unknown) (no date) (unknown) [facility]) Result panel 375 (unknown) (no date) (unknown) [facility]) Result panel 376 (unknown) (no date) (unknown) [facility]) Result panel 377 (unknown) (no date) (unknown) [facility]) Result panel 378 (unknown) (no date) (unknown) [facility]) Result panel 379 (unknown) (no date) (unknown) [facility]) Result panel 380 (unknown) (no date) (unknown) [facility]) Result panel 381 (unknown) (no date) (unknown) [facility]) Result panel 382 (unknown) (no date) (unknown) [facility]) Result panel 383 (unknown) (no date) (unknown) [facility]) Result panel 384 (unknown) (no date) (unknown) [facility]) Result panel 385 (unknown) (no date) (unknown) [facility]) Result panel 386 (unknown) (no date) (unknown) [facility]) Result panel 387 (unknown) (no date) (unknown) [facility]) Result panel 388 (unknown) (no date) (unknown) [facility]) Result panel 389 (unknown) (no date) (unknown[facility]) Result panel 390 (unknown) (no date) (unknown) [facility]) Result panel 391 (unknown) (no date) (unknown[facility]) Result panel 392 (unknown) (no date) (unknown) [facility]) Result panel 393 (unknown) (no date) (unknown) [facility]) Result panel 394 (unknown) (no date) (unknown) [facility]) Result panel 395 (unknown) (no date) (unknown) [facility]) Result panel 396 (unknown) (no date) (unknown) [facility]) Result panel 397 (unknown) (no date) (unknown) [facility]) Result panel 398 (unknown) (no date) (unknown) [facility]) Result panel 399 (unknown) (no date) (unknown) [facility]) Result panel 400 (unknown) (no date) (unknown) [facility]) Result panel 401 (unknown) (no date) (unknown) [facility]) Result panel 402 (unknown) (no date) (unknown) [facility]) Result panel 403 (unknown) (no date) (unknown) [facility]) Result panel 404 (unknown) (no date) (unknown) [facility]) Result panel 405 (unknown) (no date) (unknown) [facility]) Result panel 406 (unknown) (no date) (unknown) [facility]) Result panel 407 (unknown) (no date) (unknown) [facility]) Result panel 408 (unknown) (no date) (unknown) [facility]) Result panel 409 (unknown) (no date) (unknown) [facility]) Result panel 410 (unknown) (no date) (unknown) [facility]) Result panel 411 (unknown) (no date) (unknown) [facility]) Result panel 412 (unknown) (no date) (unknown) [facility]) Result panel 413 (unknown) (no date) (unknown) [facility]) Result panel 414 (unknown) (no date) (unknown) [facility]) Result panel 415 (unknown) (no date) (unknown) [facility]) Result panel 416 (unknown) (no date) (unknown) [facility]) Result panel 417 (unknown) (no date) (unknown) [facility]) Result panel 418 (unknown) (no date) (unknown) [facility]) Result panel 419 (unknown) (no date) (unknown) [facility]) Result panel 420 (unknown) (no date) (unknown) [facility]) Result panel 421 (unknown) (no date) (unknown) [facility]) Result panel 422 (unknown) (no date) (unknown) [facility]) Result panel 423 (unknown) (no date) (unknown) [facility]) Result panel 424 (unknown) (no date) (unknown) [facility]) Result panel 425 (unknown) (no date) (unknown) [facility]) Result panel 426 (unknown) (no date) (unknown) [facility]) Result panel 427 (unknown) (no date) (unknown) [facility]) Result panel 428 (unknown) (no date) (unknown) [facility]) Result panel 429 (unknown) (no date) (unknown) [facility]) Result panel 430 (unknown) (no date) (unknown) [facility]) Result panel 431 (unknown) (no date) (unknown) [facility]) Result panel 432 (unknown) (no date) (unknown) [facility]) Result panel 433 (unknown) (no date) (unknown) [facility]) Result panel 434 (unknown) (no date) (unknown) [facility]) Result panel 435 (unknown) (no date) (unknown) [facility]) Result panel 436 (unknown) (no date) (unknown) [facility]) Result panel 437 (unknown) (no date) (unknown) [facility]) Result panel 438 (unknown) (no date) (unknown[facility]) Result panel 439 (unknown) (no date) (unknown) [facility]) Result panel 440 (unknown) (no date) (unknown) [facility]) Result panel 441 (unknown) (no date) (unknown) [facility]) Result panel 442 (unknown) (no date) (unknown) [facility]) Result panel 443 (unknown) (no date) (unknown) [facility]) Result panel 444 (unknown) (no date) (unknown) [facility]) Result panel 445 (unknown) (no date) (unknown) [facility]) Result panel 446 (unknown) (no date) (unknown) [facility]) Result panel 447 (unknown) (no date) (unknown) [facility]) Result panel 448 (unknown) (no date) (unknown) [facility]) Result panel 449 (unknown) (no date) (unknown) [facility]) Result panel 450 (unknown) (no date) (unknown) [facility]) Result panel 451 (unknown) (no date) (unknown) [facility]) Result panel 452 (unknown) (no date) (unknown) [facility]) Result panel 453 (unknown) (no date) (unknown) [facility]) Result panel 454 (unknown) (no date) (unknown) [facility]) Result panel 455 (unknown) (no date) (unknown) [facility]) Result panel 456 (unknown) (no date) (unknown) [facility] unknown) Result panel 457 (unknown) (no date) (unknown) [facility]) Result panel 458 (unknown) (no date) (unknown) [facility] Result panel 459 (unknown) (no date) (unknown) [facility]) Result panel 460 (unknown) (no date) (unknown) [facility]) Result panel 461 (unknown) (no date) (unknown) [facility]) Result panel 462 (unknown) (no date) (unknown) [facility]) Result panel 463 (unknown) (no date) (unknown) [facility]) Result panel 464 (unknown) (no date) (unknown) [facility]) Result panel 465 (unknown) (no date) (unknown) [facility]) Result panel 466 (unknown) (no date) (unknown) [facility]) Result panel 467 (unknown) (no date) (unknown) [facility]) Result panel 468 (unknown) (no date) (unknown) [facility]) Result panel 469 (unknown) (no date) (unknown) [facility]) Result panel 470 (unknown) (no date) (unknown) [facility]) Result panel 471 (unknown) (no date) (unknown) [facility]) Result panel 472 (unknown) (no date) (unknown) [facility]) Result panel 473 (unknown) (no date) (unknown) [facility]) Result panel 474 (unknown) (no date) (unknown) [facility]) Result panel 475 (unknown) (no date) (unknown) [facility]) Result panel 476 (unknown) (no date) (unknown) [facility]) Result panel 477 (unknown) (no date) (unknown) [facility]) Result panel 478 (unknown) (no date) (unknown) [facility]) Result panel 479 (unknown) (no date) (unknown) [facility]) Result panel 480 (unknown) (no date) (unknown) [facility]) Result panel 481 (unknown) (no date) (unknown[facility]) Result panel 482 (unknown) (no date) (unknown) [facility]) Result panel 483 (unknown) (no date) (unknown) [facility]) Result panel 484 (unknown) (no date) (unknown) [facility]) Result panel 485 (unknown) (no date) (unknown) [facility]) Result panel 486 (unknown) (no date) (unknown) [facility]) Result panel 487 (unknown) (no date) (unknown) [facility]) Result panel 488 (unknown) (no date) (unknown) [facility]) Result panel 489 (unknown) (no date) (unknown) [facility]) Result panel 490 (unknown) (no date) (unknown) [facility]) Result panel 491 (unknown) (no date) (unknown[facility]) Result panel 492 (unknown) (no date) (unknown) [facility]) Result panel 493 (unknown) (no date) (unknown) [facility]) Result panel 494 (unknown) (no date) (unknown) [facility]) Result panel 495 (unknown) (no date) (unknown) [facility]) Result panel 496 (unknown) (no date) (unknown) [facility]) Result panel 497 (unknown) (no date) (unknown) [facility]) Result panel 498 (unknown) (no date) (unknown) [facility]) Result panel 499 (unknown) (no date) (unknown) [facility]) Result panel 500 (unknown) (no date) (unknown) [facility]) Result panel 501 (unknown) (no date) (unknown) [facility]) Result panel 502 (unknown) (no date) (unknown) [facility]) Result panel 503 (unknown) (no date) (unknown) [facility]) Result panel 504 (unknown) (no date) (unknown) [facility]) Result panel 505 (unknown) (no date) (unknown) [facility]) Result panel 506 (unknown) (no date) (unknown) [facility]) Result panel 507 (unknown) (no date) (unknown) [facility]) Result panel 508 (unknown) (no date) (unknown) [facility]) Result panel 509 (unknown) (no date) (unknown) [facility]) Result panel 510 (unknown) (no date) (unknown) [facility]) Result panel 511 (unknown) (no date) (unknown) [facility]) Result panel 512 (unknown) (no date) (unknown) [facility]) Result panel 513 (unknown) (no date) (unknown) [facility]) Result panel 514 (unknown) (no date) (unknown) [facility]) Result panel 515 (unknown) (no date) (unknown) [facility]) Result panel 516 (unknown) (no date) (unknown) [facility]) Result panel 517 (unknown) (no date) (unknown) [facility]) Result panel 518 (unknown) (no date) (unknown) [facility]) Result panel 519 (unknown) (no date) (unknown) [facility]) Result panel 520 (unknown) (no date) (unknown) [facility]) Result panel 521 (unknown) (no date) (unknown) [facility]) Result panel 522 (unknown) (no date) (unknown) [facility]) Result panel 523 (unknown) (no date) (unknown) [facility]) Result panel 524 (unknown) (no date) (unknown) [facility]) Result panel 525 (unknown) (no date) (unknown) [facility]) Result panel 526 (unknown) (no date) (unknown) [facility]) Result panel 527 (unknown) (no date) (unknown) [facility]) Result panel 528 (unknown) (no date) (unknown) [facility]) Result panel 529 (unknown) (no date) (unknown) [facility]) Result panel 530 (unknown) (no date) (unknown) [facility]) Result panel 531 (unknown) (no date) (unknown) [facility]) Result panel 532 (unknown) (no date) (unknown) [facility]) Result panel 533 (unknown) (no date) (unknown) [facility]) Result panel 534 (unknown) (no date) (unknown) [facility]) Result panel 535 (unknown) (no date) (unknown) [facility]) Result panel 536 (unknown) (no date) (unknown) [facility]) Result panel 537 (unknown) (no date) (unknown) [facility]) Result panel 538 (unknown) (no date) (unknown) [facility]) Result panel 539 (unknown) (no date) (unknown) [facility]) Result panel 540 (unknown) (no date) (unknown) [facility]) Result panel 541 (unknown) (no date) (unknown) [facility]) Result panel 542 (unknown) (no date) (unknown) [facility]) Result panel 543 (unknown) (no date) (unknown) [facility]) Result panel 544 (unknown) (no date) (unknown) [facility]) Result panel 545 (unknown) (no date) (unknown) [facility]) Result panel 546 (unknown) (no date) (unknown) [facility]) Result panel 547 (unknown) (no date) (unknown) [facility]) Result panel 548 (unknown) (no date) (unknown) [facility]) Result panel 549 (unknown) (no date) (unknown) [facility]) Result panel 550 (unknown) (no date) (unknown) [facility]) Result panel 551 (unknown) (no date) (unknown) [facility]) Result panel 552 (unknown) (no date) (unknown) [facility]) Result panel 553 (unknown) (no date) (unknown) [facility]) Result panel 554 (unknown) (no date) (unknown) [facility]) Result panel 555 (unknown) (no date) (unknown) [facility]) Result panel 556 (unknown) (no date) (unknown) [facility]) Result panel 557 (unknown) (no date) (unknown) [facility]) Result panel 558 (unknown) (no date) (unknown) [facility]) Result panel 559 (unknown) (no date) (unknown) [facility]) Result panel 560 (unknown) (no date) (unknown) [facility]) Result panel 561 (unknown) (no date) (unknown) [facility]) Result panel 562 (unknown) (no date) (unknown) [facility]) Result panel 563 (unknown) (no date) (unknown) [facility]) Result panel 564 (unknown) (no date) (unknown) [facility]) Result panel 565 (unknown) (no date) (unknown) [facility]) Result panel 566 (unknown) (no date) (unknown) [facility]) Result panel 567 (unknown) (no date) (unknown) [facility]) Result panel 568 (unknown) (no date) (unknown) [facility]) Result panel 569 (unknown) (no date) (unknown) [facility]) Result panel 570 (unknown) (no date) (unknown) [facility]) Result panel 571 (unknown) (no date) (unknown) [facility]) Result panel 572 (unknown) (no date) (unknown) [facility]) Result panel 573 (unknown) (no date) (unknown) [facility]) Result panel 574 (unknown) (no date) (unknown) [facility]) Result panel 575 (unknown) (no date) (unknown) [facility]) Result panel 576 (unknown) (no date) (unknown) [facility]) Result panel 577 (unknown) (no date) (unknown) [facility]) Result panel 578 (unknown) (no date) (unknown) [facility]) Result panel 579 (unknown) (no date) (unknown) [facility]) Result panel 580 (unknown) (no date) (unknown) [facility]) Result panel 581 (unknown) (no date) (unknown) [facility]) Result panel 582 (unknown) (no date) (unknown) [facility]) Result panel 583 (unknown) (no date) (unknown) [facility]) Result panel 584 (unknown) (no date) (unknown) [facility]) Result panel 585 (unknown) (no date) (unknown) [facility]) Result panel 586 (unknown) (no date) (unknown) [facility]) Result panel 587 (unknown) (no date) (unknown) [facility]) Result panel 588 (unknown) (no date) (unknown) [facility]) Result panel 589 (unknown) (no date) (unknown) [facility]) Result panel 590 (unknown) (no date) (unknown) [facility]) Result panel 591 (unknown) (no date) (unknown) [facility]) Result panel 592 (unknown) (no date) (unknown) [facility]) Result panel 593 (unknown) (no date) (unknown) [facility]) Result panel 594 (unknown) (no date) (unknown) [facility]) Result panel 595 (unknown) (no date) (unknown) [facility]) Result panel 596 (unknown) (no date) (unknown) [facility]) Result panel 597 (unknown) (no date) (unknown) [facility]) Result panel 598 (unknown) (no date) (unknown) [facility]) Result panel 599 (unknown) (no date) (unknown) [facility]) Result panel 600 (unknown) (no date) (unknown) [facility]) Result panel 601 (unknown) (no date) (unknown) [facility]) Result panel 602 (unknown) (no date) (unknown) [facility]) Result panel 603 (unknown) (no date) (unknown) [facility]) Result panel 604 (unknown) (no date) (unknown) [facility]) Result panel 605 (unknown) (no (unknown) (unknown) (no value) (units (unk nown) date) unknown) (unknown) (no (unknown) (unknown) #: [id number] (units ( unknown) date) unknown) (unknown) (no (unknown) (unknown) 07/12/22 (units (unkno wn) date) unknown) (unknown) (no (unknown) (unknown) [address] [place] [address] (units (unknown) date) unknown) (unknown) (no (unknown) (unknown) Accession Number: (units (unknown) date) [id number] unknown) (unknown) (no (unknown) (unknown) Age/Sex: 52 / M (units (unknown) date) Date of Service: unknown) (unknown) (no (unknown) (unknown) [place] (units ( unknown) date) [id number] unknown) (unknown) (no (unknown) (unknown) Approved by: Celso (units (unknown) date) Alex Barahona on unknown) 07/12/2022 at 15:24 (unknown) (no (unknown) (unknown) Bones: 5 (units (unkno wn) date) [id number] unknown) vertebrae are present. There is normal bony (unknown) (no (unknown) (unknown) COMPARISON: (units (un known) date) [facility], unknown) CR, XR LUMBAR SPINE 2-3V, 06/13/2021, 13:37. 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 No suspicious soft (unknown) (no (unknown) (unknown) Stable (units (unkno wn) date) instrumented L5-S1 unknown) discectomy and fusion (unknown) (no (unknown) (unknown) TECHNIQUE: 3 (units (u nknown) date) views of the unknown) lumbar spine were acquired. (unknown) (no (unknown) (unknown) XRay Report (units (un known) date) unknown) (unknown) (no (unknown) (unknown) alignment. No (units ( unknown) date) unknown) (unknown) (no (unknown) (unknown) at L3-4 and L4-5, (units (unknown) date) similar to the unknown) prior exam. (unknown) (no (unknown) (unknown) calcifications. (units (unknown) date) unknown) (unknown) (no (unknown) (unknown) discectomy and (units (unknown) date) unknown) (unknown) (no (unknown) (unknown) fusion with (units (un known) date) posterior thomas and unknown) screw instrumentation good position. No evidence (unknown) (no (unknown) (unknown) hardware failure (units (unknown) date) loosening. Mild unknown) disc space narrowing and sclerotic facet (unknown) (no (unknown) (unknown) joints noted (units (u nknown) date) unknown) (unknown) (no (unknown) (unknown) of (units (unkno wn) date) unknown) (unknown) (no (unknown) (unknown) tissue (units (unkno wn) date) unknown) (unknown) (no (unknown) (unknown) vertebral body (units (unknown) date) compression unknown) fractures. No suspicious bony lesions. L5-S1 Result panel 606 (unknown) (no (unknown) (unknown) (no value) (units (unk nown) date) unknown) (unknown) (no (unknown) (unknown) (Lidoderm) (units (unk nown) date) unknown) (unknown) (no (unknown) (unknown) *If you do not have (unit s (unknown) date) a primary care unknown) provider please contact [phone] to (unknown) (no (unknown) (unknown) *Please continue to (unit s (unknown) date) take your regular unknown) medications as directed. (unknown) (no (unknown) (unknown) *Please follow up (units (unknown) date) with your primary unknown) care provider in 2-3 days, call for an (unknown) (no (unknown) (unknown) *Return to (units (unk nown) date) Emergency Department unknown) if you should have any new, worsening, or (unknown) (no (unknown) (unknown) *What to do: (units (u nknown) date) unknown) (unknown) (no (unknown) (unknown) *You have been (units ( unknown) date) diagnosed with unknown) [cervical radiculopathy and lumbar radiculopathy.] (unknown) (no (unknown) (unknown) 0.5 mg PO BEDTIME (units (unknown) date) PRN (Reason: sleep) unknown) Qty: 14 0RF (unknown) (no (unknown) (unknown) 07/12/22 15:38 (units (unknown) date) unknown) (unknown) (no (unknown) (unknown) 07/12/22 (units (unkno wn) date) unknown) (unknown) (no (unknown) (unknown) 1 tab PO Q8H PRN (units (unknown) date) (Reason: pain) Qty: unknown) 10 0RF (unknown) (no (unknown) (unknown) [address] [place] [address] (units (unknown) date) unknown) (unknown) (no (unknown) (unknown) 14:01 (units (unkno wn) date) unknown) (unknown) (no (unknown) (unknown) 150 mg PO BID Qty: (units (unknown) date) 60 0RF unknown) (unknown) (no (unknown) (unknown) 160/88 mmHg.? (units ( unknown) date) Baseline rhythm was unknown) sinus with slight concave ST-depression in (unknown) (no (unknown) (unknown) 2 patch topical (units (unknown) date) DAILY Qty: 30 0RF unknown) (unknown) (no (unknown) (unknown) 20 mg PO DAILY 5 (units (unknown) date) Days Qty: 5 0RF unknown) (unknown) (no (unknown) (unknown) 211-1 (units (unkno wn) date) unknown) (unknown) (no (unknown) (unknown) 25 mg PO BID Qty: (units (unknown) date) 180 3RF unknown) (unknown) (no (unknown) (unknown) 40 mg PO BEDTIME (units (unknown) date) Qty: 90 3RF unknown) (unknown) (no (unknown) (unknown) 5 and spread to the (unit s (unknown) date) entire chest and unknown) returned back to the baseline in recovery. (unknown) (no (unknown) (unknown) 50 mg PO DAILY Qty: (unit s (unknown) date) 90 3RF unknown) (unknown) (no (unknown) (unknown) 600 mg PO TID Qty: (units (unknown) date) 270 3RF unknown) (unknown) (no (unknown) (unknown) 81 mg PO DAILY (units (unknown) date) unknown) (unknown) (no (unknown) (unknown) : [id number] (units (u nknown) date) unknown) (unknown) (no (unknown) (unknown) ? (units (unkno wn) date) unknown) (unknown) (no (unknown) (unknown) ADD (attention (units (unknown) date) deficit disorder) unknown) (unknown) (no (unknown) (unknown) [facility] MD (units (unknown) date) [Primary Care unknown) Provider] (unknown) (no (unknown) (unknown) Accession Number: (units (unknown) date) [id number] ?? unknown) (unknown) (no (unknown) (unknown) Acct:[id number] (units (unknown) date) unknown) (unknown) (no (unknown) (unknown) Activity (units (unkno wn) date) Restrictions/Additio unknown) nal Instructions: (unknown) (no (unknown) (unknown) Age/Sex: 52 / M (units (unknown) date) unknown) (unknown) (no (unknown) (unknown) Allergies (units (unkn own) date) unknown) (unknown) (no (unknown) (unknown) Allergy/AdvReac (units (unknown) date) Type Severity unknown) Reaction Status Date / Time (unknown) (no (unknown) (unknown) JEFFREY Don [address] (unit s (unknown) date) unknown) (unknown) (no (unknown) (unknown) Asthma (units (unkno wn) date) unknown) (unknown) (no (unknown) (unknown) Blood Pressure (units (unknown) date) 176/93 H 07/12/22 unknown) 14:01 (unknown) (no (unknown) (unknown) Blood Pressure (units (unknown) date) 176/93 H unknown) (unknown) (no (unknown) (unknown) CARDIAC STRESS:? (units (unknown) date) The patient unknown) underwent exercise stress test under the (unknown) (no (unknown) (unknown) CONCLUSION:? (units (un known) date) Exercise stress test unknown) inconclusive for inducible ischemia in view of (unknown) (no (unknown) (unknown) COPIES MNE: PALV; (units (unknown) date) unknown) (unknown) (no (unknown) (unknown) CT - cervical (units ( unknown) date) spine: unknown) (unknown) (no (unknown) (unknown) CT cervical spine (units (unknown) date) from 06/16/2022 unknown) without new traumatic injury or new (unknown) (no (unknown) (unknown) Cervical radicular (units (unknown) date) pain, Lumbar unknown) radiculopathy (unknown) (no (unknown) (unknown) Cervical (units (unkno wn) date) radiculopathy due to unknown) osteoarthritis of spine (unknown) (no (unknown) (unknown) Chief complaint: (units (unknown) date) Extremity unknown) Problem,Nontraumatic (unknown) (no (unknown) (unknown) Clinical (units (unkno wn) date) Impression: unknown) (unknown) (no (unknown) (unknown) Copy of cardiac (units (unknown) date) stress test from unknown) 06/17/2022 (unknown) (no (unknown) (unknown) Coronary artery (units (unknown) date) disease unknown) (unknown) (no (unknown) (unknown) Course (units (unkno wn) date) unknown) (unknown) (no (unknown) (unknown) DATE OF SERVICE:? (units (unknown) date) 06/17/2022 unknown) (unknown) (no (unknown) (unknown) DICTATING MD/COPIES (unit s (unknown) date) TO: Vicente Mccoy, unknown) MD (unknown) (no (unknown) (unknown) : 1970 (units (unknown) date) Acct:[id number] unknown) (unknown) (no (unknown) (unknown) : 1970 (units (unknown) date) unknown) (unknown) (no (unknown) (unknown) Date of Service: (units (unknown) date) 07/12/22 unknown) (unknown) (no (unknown) (unknown) Date of Service: (units (unknown) date) 06/16/22 unknown) (unknown) (no (unknown) (unknown) Departure (units (unkn own) date) unknown) (unknown) (no (unknown) (unknown) Depression (units (unk nown) date) unknown) (unknown) (no (unknown) (unknown) Discharge Plan (units (unknown) date) unknown) (unknown) (no (unknown) (unknown) Discontinued (units (u nknown) date) Medications unknown) (unknown) (no (unknown) (unknown) Discussed the (units ( unknown) date) findings with the unknown) hospitalist team. (unknown) (no (unknown) (unknown) Documented By: KB (units (unknown) date) unknown) (unknown) (no (unknown) (unknown) ED Orders (units (unkn own) date) unknown) (unknown) (no (unknown) (unknown) ER Physician: (units ( unknown) date) Michelle Wilson unknown) (unknown) (no (unknown) (unknown) Emergency Report (units (unknown) date) unknown) (unknown) (no (unknown) (unknown) Essential (units (unkn own) date) hypertension unknown) (unknown) (no (unknown) (unknown) Exam (units (unkno wn) date) unknown) (unknown) (no (unknown) (unknown) Family History (units (unknown) date) (Reviewed 06/17/22 @ unknown) 02:22 by Daniel Hector MD) (unknown) (no (unknown) (unknown) Father Hypertension (unit s (unknown) date) unknown) (unknown) (no (unknown) (unknown) General (units (unkno wn) date) unknown) (unknown) (no (unknown) (unknown) Generalized anxiety (unit s (unknown) date) disorder with panic unknown) attacks (unknown) (no (unknown) (unknown) HPI - Extremity (units (unknown) date) Problem unknown) (unknown) (no (unknown) (unknown) Herniated (units (unkn own) date) intervertebral disc unknown) of lumbar spine (unknown) (no (unknown) (unknown) Home Medications (units (unknown) date) unknown) (unknown) (no (unknown) (unknown) Hx of cervical (units (unknown) date) discectomy () unknown) (unknown) (no (unknown) (unknown) Hyperlipidemia (units (unknown) date) unknown) (unknown) (no (unknown) (unknown) Hypertension (units (u nknown) date) unknown) (unknown) (no (unknown) (unknown) INDICATION:? Chest (units (unknown) date) pain, left arm pain, unknown) underlying CAD, hypertension (unknown) (no (unknown) (unknown) Imaging Data (units (u nknown) date) unknown) (unknown) (no (unknown) (unknown) Initial Vital Signs (unit s (unknown) date) unknown) (unknown) (no (unknown) (unknown) Initial Vital (units ( unknown) date) Signs: unknown) (unknown) (no (unknown) (unknown) [facility] (units (unknown) date) [address] unknown) [place] [address] (unknown) (no (unknown) (unknown) [facility] (units (unknown) date) unknown) (unknown) (no (unknown) (unknown) Last Admin: (units (un known) date) 07/12/22 15:58 Dose: unknown) 2 each (unknown) (no (unknown) (unknown) Last Admin: (units (un known) date) 07/12/22 15:58 Dose: unknown) 2 tab (unknown) (no (unknown) (unknown) Last Admin: (units (un known) date) 07/12/22 15:58 Dose: unknown) 40 mg (unknown) (no (unknown) (unknown) Lidocaine (units (unkn own) date) (Lidocaine Patch 1 unknown) Each Adh..Patch) 2 each TOP NOW ONE (unknown) (no (unknown) (unknown) Loc: [facility] (units (unkno wn) date) unknown) (unknown) (no (unknown) (unknown) MDM - Extremity (units (unknown) date) (Nontraumatic) unknown) (unknown) (no (unknown) (unknown) MR#: [id number] (units (unknown) date) unknown) (unknown) (no (unknown) (unknown) Maybaljit II, [place] (unit s (unknown) date) - unknown) (unknown) (no (unknown) (unknown) Medical History (units (unknown) date) (Reviewed 06/17/22 @ unknown) 02:22 by Daniel Hector MD) (unknown) (no (unknown) (unknown) Medical Records (units (unknown) date) unknown) (unknown) (no (unknown) (unknown) Medical records (units (unknown) date) narrative: unknown) (unknown) (no (unknown) (unknown) Medication (units (unk nown) date) Instructions unknown) Recorded Confirmed (unknown) (no (unknown) (unknown) Medication (units (unk nown) date) Instructions unknown) Recorded (unknown) (no (unknown) (unknown) Methocarbamol (units ( unknown) date) (Methocarbamol 500 unknown) Mg Tablet) 750 mg PO NOW ONE (unknown) (no (unknown) (unknown) Mode of arrival: (units (unknown) date) Ambulatory unknown) (unknown) (no (unknown) (unknown) Mother Diabetes (units (unknown) date) mellitus unknown) (unknown) (no (unknown) (unknown) Flaco Ma MD (units (unknown) date) [Physician] - 5-7 unknown) days (unknown) (no (unknown) (unknown) My Impression: (units (unknown) date) unknown) (unknown) (no (unknown) (unknown) New (units (unkno wn) date) unknown) (unknown) (no (unknown) (unknown) No Action (units (unkn own) date) unknown) (unknown) (no (unknown) (unknown) No significant (units (unknown) date) arrhythmias seen. unknown) (unknown) (no (unknown) (unknown) Nuclear Medicine (units (unknown) date) Report unknown) (unknown) (no (unknown) (unknown) On Thursday, please (units (unknown) date) call Dr. Dickerson and unknown) discuss follow-up, please touch base (unknown) (no (unknown) (unknown) Opiate addiction (units (unknown) date) unknown) (unknown) (no (unknown) (unknown) Ordered: (units (unkno wn) date) unknown) (unknown) (no (unknown) (unknown) Ordering Provider: (units (unknown) date) Daniel Hector MD unknown) (unknown) (no (unknown) (unknown) Orders (units (unkno wn) date) unknown) (unknown) (no (unknown) (unknown) Oxycodone/Acetamino (unit s (unknown) date) phen unknown) (Oxycodone/Acetamino phen 5/325 Tablet) 2 tab PO NOW ONE (unknown) (no (unknown) (unknown) Oxygen Delivery (units (unknown) date) Method 07/12/22 unknown) 14:01 (unknown) (no (unknown) (unknown) Oxygen Delivery (units (unknown) date) Method Room Air unknown) (unknown) (no (unknown) (unknown) PROCEDURE:? (units (un known) date) Exercise stress unknown) test. 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 unknown) (unknown) (no (unknown) (unknown) Patient (units (unkno wn) date) Disposition: Home unknown) (unknown) (no (unknown) (unknown) Patient History (units (unknown) date) unknown) (unknown) (no (unknown) (unknown) Patient: Celeste (units (unknown) date) IIAnthony MR# unknown) (unknown) (no (unknown) (unknown) Patient: Celeste (units (unknown) date) II,Anthony Alvarez unknown) (unknown) (no (unknown) (unknown) Peripheral (units (unk nown) date) neuropathy unknown) (unknown) (no (unknown) (unknown) Prednisone (units (unk nown) date) (Prednisone 20 Mg unknown) Tablet) 40 mg PO NOW ONE (unknown) (no (unknown) (unknown) Prescriptions: (units (unknown) date) unknown) (unknown) (no (unknown) (unknown) Previous Rx's (units ( unknown) date) unknown) (unknown) (no (unknown) (unknown) Procedure: Exercise (unit s (unknown) date) treadmill NON NUC unknown) (unknown) (no (unknown) (unknown) Pulse Oximetry 97 (units (unknown) date) 07/12/22 14:01 unknown) (unknown) (no (unknown) (unknown) Pulse Oximetry 97 (units (unknown) date) unknown) (unknown) (no (unknown) (unknown) Pulse Rate 93 H (units (unknown) date) 07/12/22 14:01 unknown) (unknown) (no (unknown) (unknown) Pulse Rate 93 H (units (unknown) date) unknown) (unknown) (no (unknown) (unknown) REACTION' (units (unkn own) date) unknown) (unknown) (no (unknown) (unknown) RLS (restless legs (units (unknown) date) syndrome) unknown) (unknown) (no (unknown) (unknown) Referrals: (units (unk nown) date) unknown) (unknown) (no (unknown) (unknown) Related Data (units (u nknown) date) unknown) (unknown) (no (unknown) (unknown) Respiratory Rate 15 (unit s (unknown) date) 07/12/22 14:01 unknown) (unknown) (no (unknown) (unknown) Respiratory Rate 15 (unit s (unknown) date) unknown) (unknown) (no (unknown) (unknown) Rx Instructions: (units (unknown) date) unknown) (unknown) (no (unknown) (unknown) Signed By: (units (unk nown) date) unknown) (unknown) (no (unknown) (unknown) Signed (units (unkno wn) date) unknown) (unknown) (no (unknown) (unknown) Smoking Status: (units (unknown) date) Current every day unknown) smoker (unknown) (no (unknown) (unknown) Social History (units (unknown) date) (Reviewed 06/16/22 @ unknown) 21:00 by Flaco Brock MD) (unknown) (no (unknown) (unknown) Source: patient (units (unknown) date) unknown) (unknown) (no (unknown) (unknown) Spinal stenosis of (units (unknown) date) lumbar region with unknown) neurogenic claudication (unknown) (no (unknown) (unknown) Spondylolisthesis (units (unknown) date) of lumbar region unknown) (unknown) (no (unknown) (unknown) Stand Alone Forms: (units (unknown) date) Patient Portal/API unknown) (unknown) (no (unknown) (unknown) Stated complaint: (units (unknown) date) LT side pain from unknown) neck down to foot t-5 (unknown) (no (unknown) (unknown) Stenosis of artery (units (unknown) date) unknown) (unknown) (no (unknown) (unknown) Stop: 07/12/22 (units (unknown) date) 15:44 unknown) (unknown) (no (unknown) (unknown) Substance Use Type: (unit s (unknown) date) does not use unknown) (unknown) (no (unknown) (unknown) Surgical History (units (unknown) date) (Reviewed 06/17/22 @ unknown) 02:22 by Daniel Hector, MD) (unknown) (no (unknown) (unknown) Temperature 98.4 F (units (unknown) date) 07/12/22 14:01 unknown) (unknown) (no (unknown) (unknown) Temperature 98.4 F (units (unknown) date) unknown) (unknown) (no (unknown) (unknown) Time Seen by (units (u nknown) date) Provider: 07/12/22 unknown) 15:37 (unknown) (no (unknown) (unknown) 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 (units (unkno wn) date) unknown) (unknown) (no (unknown) (unknown) Vital Signs - 8 hr (units (unknown) date) unknown) (unknown) (no (unknown) (unknown) Vital Signs (units (un known) date) unknown) (unknown) (no (unknown) (unknown) Vital signs: (units (u nknown) date) unknown) (unknown) (no (unknown) (unknown) Vitamin D (units (unkn own) date) deficiency unknown) (unknown) (no (unknown) (unknown) XR lumbar spine (units (unknown) date) 2-3V Stat unknown) (unknown) (no (unknown) (unknown) [ ] New medication (units (unknown) date) written as a paper unknown) prescription (unknown) (no (unknown) (unknown) [ ] No new (units (unk nown) date) medications given unknown) (unknown) (no (unknown) (unknown) [x ] New medication (unit s (unknown) date) prescriptions sent unknown) [facility] [place] (unknown) (no (unknown) (unknown) alcohol intake (units (unknown) date) frequency: a few unknown) times a month (unknown) (no (unknown) (unknown) alcohol intake: (units (unknown) date) never unknown) (unknown) (no (unknown) (unknown) alprazolam 0.5 mg (units (unknown) date) tablet 0.5 mg PO unknown) BEDTIME PRN sleep #14 05/20/22 (unknown) (no (unknown) (unknown) alprazolam 0.5 mg (units (unknown) date) tablet unknown) (unknown) (no (unknown) (unknown) and 38 seconds, (units (unknown) date) achieved maximum unknown) heart rate of 167, which was 101 percent of (unknown) (no (unknown) (unknown) and plan for (units (u nknown) date) chronic pain unknown) regimen. Thank you for coming in for evaluation, I am (unknown) (no (unknown) (unknown) and water every 8 (units (unknown) date) hours as needed. You unknown) can take Percocet occasionally for (unknown) (no (unknown) (unknown) appointment. Let (units (unknown) date) them know you were unknown) seen in the Emergency Department and that we (unknown) (no (unknown) (unknown) arrhythmias.? The (units (unknown) date) patient has resting, unknown) squeezing left-sided chest pain, which (unknown) (no (unknown) (unknown) asked that you be (units (unknown) date) seen for follow-up. unknown) We will electronically transmit a record (unknown) (no (unknown) (unknown) aspirin 81 mg (units ( unknown) date) tablet,delayed 81 mg unknown) PO DAILY 04/11/22 05/20/22 (unknown) (no (unknown) (unknown) aspirin 81 mg (units ( unknown) date) tablet,delayed unknown) release (DR/EC) (unknown) (no (unknown) (unknown) atorvastatin 40 mg (units (unknown) date) tablet 40 mg PO unknown) BEDTIME #90 tabs 04/11/22 (unknown) (no (unknown) (unknown) atorvastatin 40 mg (units (unknown) date) tablet unknown) (unknown) (no (unknown) (unknown) baseline resting (units (unknown) date) left-sided, unknown) squeezing chest pain, which got mildly worse during (unknown) (no (unknown) (unknown) breakthrough pain, (units (unknown) date) continue on your unknown) gabapentin for the nerve pain. You (unknown) (no (unknown) (unknown) bupropion HCl 150 (units (unknown) date) mg 24 hr tablet, 150 unknown) mg PO BID #60 tabs 05/20/22 (unknown) (no (unknown) (unknown) bupropion HCl 150 (units (unknown) date) mg tablet extended unknown) release 24 hr (unknown) (no (unknown) (unknown) concerning (units (unk nown) date) symptoms, such as unknown) [fever greater than 101F, chills, worsening pain, (unknown) (no (unknown) (unknown) dd: 06/17/2022 (units (unknown) date) 12:47:00 dt: unknown) 06/17/2022 17:58:00 (unknown) (no (unknown) (unknown) doc#: (units (unkno wn) date) [id number]/job#: [id number] unknown) (unknown) (no (unknown) (unknown) droperidol (units (unk nown) date) [DROPERIDOL] Allergy unknown) Mild 'COGENIC Verified 07/12/22 14:01 (unknown) (no (unknown) (unknown) establish care with [place]unit [place] ([place]) [place] of [place] [facility] primary care providers. (unknown) (no (unknown) (unknown) exercise and (units (u nknown) date) returned back to the unknown) baseline in recovery.? Normal hemodynamic (unknown) (no (unknown) (unknown) extended release (units (unknown) date) unknown) (unknown) (no (unknown) (unknown) for further (units (un known) date) coronary artery unknown) disease diagnosis and risk stratification. (unknown) (no (unknown) (unknown) gabapentin 600 mg (units (unknown) date) tablet 600 mg PO TID unknown) #270 tabs 05/20/22 (unknown) (no (unknown) (unknown) gabapentin 600 mg (units (unknown) date) tablet unknown) (unknown) (no (unknown) (unknown) got slightly (units (u nknown) date) pronounced during unknown) exercise with quick recovery.? The patient has (unknown) (no (unknown) (unknown) household members: (units (unknown) date) family unknown) (unknown) (no (unknown) (unknown) inferolateral (units ( unknown) date) leads, likely part unknown) of repolarization changes.? During exercise, (unknown) (no (unknown) (unknown) leave on most (units ( unknown) date) painful area for up unknown) to 12 hrs (unknown) (no (unknown) (unknown) lidocaine 5 % (units ( unknown) date) topical patch 2 unknown) patch topical DAILY #30 ea 07/12/22 (unknown) (no (unknown) (unknown) lidocaine (units (unkn own) date) [Lidoderm] 5 % unknown) adhesive patch,medicated (unknown) (no (unknown) (unknown) metoprolol tartrate (unit s (unknown) date) 25 mg tablet 25 mg unknown) PO BID #180 tabs 04/09/22 (unknown) (no (unknown) (unknown) metoprolol tartrate (unit s (unknown) date) 25 mg tablet unknown) (unknown) (no (unknown) (unknown) mg tablet (units (unkn own) date) (Percocet) unknown) (unknown) (no (unknown) (unknown) of today's note if (units (unknown) date) your PCP is in our unknown) system (unknown) (no (unknown) (unknown) oxycodone-acetamino (unit s (unknown) date) phen 5 mg-325 1 tab unknown) PO Q8H PRN pain #10 tabs 07/12/22 (unknown) (no (unknown) (unknown) oxycodone-acetamino (unit s (unknown) date) phen [Percocet] unknown) 5-325 mg tablet (unknown) (no (unknown) (unknown) persistent vomiting (unit s (unknown) date) or other bothersome unknown) symptoms]. (unknown) (no (unknown) (unknown) prednisone 20 mg (units (unknown) date) tablet 20 mg PO unknown) DAILY 5 days #5 tabs 07/12/22 (unknown) (no (unknown) (unknown) prednisone 20 mg (units (unknown) date) tablet unknown) (unknown) (no (unknown) (unknown) radiculopathy (units ( unknown) date) unknown) (unknown) (no (unknown) (unknown) release (units (unkno wn) date) unknown) (unknown) (no (unknown) (unknown) response.? No (units ( unknown) date) significant unknown) arrhythmias.? Consider repeating exercise stress test (unknown) (no (unknown) (unknown) sertraline 50 mg (units (unknown) date) tablet 50 mg PO unknown) DAILY #90 tabs 04/09/22 (unknown) (no (unknown) (unknown) sertraline 50 mg (units (unknown) date) tablet unknown) (unknown) (no (unknown) (unknown) something topical (units (unknown) date) as needed for pain. unknown) (unknown) (no (unknown) (unknown) sorry for your (units (unknown) date) pain. Please take unknown) ibuprofen 800 mg with Tylenol 975 mg with food (unknown) (no (unknown) (unknown) supervision of an (units (unknown) date) attending staff.? unknown) She walked on Dar protocol for 8 minutes (unknown) (no (unknown) (unknown) tabs (units (unkno wn) date) unknown) (unknown) (no (unknown) (unknown) target heart rate.? (units (unknown) date) Baseline blood unknown) pressure 140/100 mmHg and peak blood pressure (unknown) (no (unknown) (unknown) the patient has up (units (unknown) date) to [address] unknown) depression in the inferolateral leads (unknown) (no (unknown) (unknown) underlying resting, (unit s (unknown) date) slight concave unknown) ST-depression in inferolateral leads, which (unknown) (no (unknown) (unknown) was on a scale of 1 (unit s (unknown) date) to 10, 2 in unknown) intensity.? During exercise, it became worse to (unknown) (no (unknown) (unknown) with Dr. Mitchell (units (unknown) date) regarding unknown) prescription medications, possible steroid injections, (unknown) (no (unknown) (unknown) with imaging (units (u nknown) date) modality, like a unknown) nuclear perfusion study or exercise stress echo (unknown) (no (unknown) (unknown) with quick recovery (unit s (unknown) date) within 30 seconds to unknown) the baseline.? No significant Result panel 607 (unknown) (no (unknown) (unknown) (no value) (units (unk nown) date) unknown) (unknown) (no (unknown) (unknown) (Lidoderm) (units (unk nown) date) unknown) (unknown) (no (unknown) (unknown) *If you do not have (unit s (unknown) date) a primary care unknown) provider please contact [phone] to (unknown) (no (unknown) (unknown) *Please continue to (unit s (unknown) date) take your regular unknown) medications as directed. (unknown) (no (unknown) (unknown) *Please follow up (units (unknown) date) with your primary unknown) care provider in 2-3 days, call for an (unknown) (no (unknown) (unknown) *Return to (units (unk nown) date) Emergency Department unknown) if you should have any new, worsening, or (unknown) (no (unknown) (unknown) *What to do: (units (u nknown) date) unknown) (unknown) (no (unknown) (unknown) *You have been (units ( unknown) date) diagnosed with unknown) [cervical radiculopathy and lumbar radiculopathy.] (unknown) (no (unknown) (unknown) 0.5 mg PO BEDTIME (units (unknown) date) PRN (Reason: sleep) unknown) Qty: 14 0RF (unknown) (no (unknown) (unknown) 07/12/22 15:38 (units (unknown) date) unknown) (unknown) (no (unknown) (unknown) 07/12/22 (units (unkno wn) date) unknown) (unknown) (no (unknown) (unknown) 1 tab PO Q8H PRN (units (unknown) date) (Reason: pain) Qty: unknown) 10 0RF (unknown) (no (unknown) (unknown) [facility] (units (unknown) date) unknown) (unknown) (no (unknown) (unknown) 14:01 (units (unkno wn) date) unknown) (unknown) (no (unknown) (unknown) 150 mg PO BID Qty: (units (unknown) date) 60 0RF unknown) (unknown) (no (unknown) (unknown) 160/88 mmHg.? (units ( unknown) date) Baseline rhythm was unknown) sinus with slight concave ST-depression in (unknown) (no (unknown) (unknown) 2 patch topical (units (unknown) date) DAILY Qty: 30 0RF unknown) (unknown) (no (unknown) (unknown) 20 mg PO DAILY 5 (units (unknown) date) Days Qty: 5 0RF unknown) (unknown) (no (unknown) (unknown) 211-1 (units (unkno wn) date) unknown) (unknown) (no (unknown) (unknown) 25 mg PO BID Qty: (units (unknown) date) 180 3RF unknown) (unknown) (no (unknown) (unknown) 40 mg PO BEDTIME (units (unknown) date) Qty: 90 3RF unknown) (unknown) (no (unknown) (unknown) 5 and spread to the (unit s (unknown) date) entire chest and unknown) returned back to the baseline in recovery. (unknown) (no (unknown) (unknown) 50 mg PO DAILY Qty: (unit s (unknown) date) 90 3RF unknown) (unknown) (no (unknown) (unknown) 600 mg PO TID Qty: (units (unknown) date) 270 3RF unknown) (unknown) (no (unknown) (unknown) 81 mg PO DAILY (units (unknown) date) unknown) (unknown) (no (unknown) (unknown) : [id number] (units (u nknown) date) unknown) (unknown) (no (unknown) (unknown) ? (units (unkno wn) date) unknown) (unknown) (no (unknown) (unknown) ADD (attention (units (unknown) date) deficit disorder) unknown) (unknown) (no (unknown) (unknown) [facility] MD (units (unknown) date) [Primary Care unknown) Provider] (unknown) (no (unknown) (unknown) Accession Number: (units (unknown) date) [id number] ?? unknown) (unknown) (no (unknown) (unknown) Acct:[id number] (units (unknown) date) unknown) (unknown) (no (unknown) (unknown) Activity (units (unkno wn) date) Restrictions/Additio unknown) nal Instructions: (unknown) (no (unknown) (unknown) Age/Sex: 52 / M (units (unknown) date) unknown) (unknown) (no (unknown) (unknown) Allergies (units (unkn own) date) unknown) (unknown) (no (unknown) (unknown) Allergy/AdvReac (units (unknown) date) Type Severity unknown) Reaction Status Date / Time (unknown) (no (unknown) (unknown) JEFFREY Don [id number] (unit s (unknown) date) unknown) (unknown) (no (unknown) (unknown) Asthma (units (unkno wn) date) unknown) (unknown) (no (unknown) (unknown) Blood Pressure (units (unknown) date) 176/93 H 07/12/22 unknown) 14:01 (unknown) (no (unknown) (unknown) Blood Pressure (units (unknown) date) 176/93 H unknown) (unknown) (no (unknown) (unknown) CARDIAC STRESS:? (units (unknown) date) The patient unknown) underwent exercise stress test under the (unknown) (no (unknown) (unknown) CONCLUSION:? (units (un known) date) Exercise stress test unknown) inconclusive for inducible ischemia in view of (unknown) (no (unknown) (unknown) COPIES MNE: PALV; (units (unknown) date) unknown) (unknown) (no (unknown) (unknown) CT - cervical (units ( unknown) date) spine: unknown) (unknown) (no (unknown) (unknown) CT cervical spine (units (unknown) date) from 06/16/2022 unknown) without new traumatic injury or new (unknown) (no (unknown) (unknown) Cervical radicular (units (unknown) date) pain, Lumbar unknown) radiculopathy (unknown) (no (unknown) (unknown) Cervical (units (unkno wn) date) radiculopathy due to unknown) osteoarthritis of spine (unknown) (no (unknown) (unknown) Chief complaint: (units (unknown) date) Extremity unknown) Problem,Nontraumatic (unknown) (no (unknown) (unknown) Clinical (units (unkno wn) date) Impression: unknown) (unknown) (no (unknown) (unknown) Copy of cardiac (units (unknown) date) stress test from unknown) 06/17/2022 (unknown) (no (unknown) (unknown) Coronary artery (units (unknown) date) disease unknown) (unknown) (no (unknown) (unknown) Course (units (unkno wn) date) unknown) (unknown) (no (unknown) (unknown) DATE OF SERVICE:? (units (unknown) date) 06/17/2022 unknown) (unknown) (no (unknown) (unknown) DICTATING MD/COPIES (unit s (unknown) date) TO: Vicente Mccoy, unknown) MD (unknown) (no (unknown) (unknown) : 1970 (units (unknown) date) Acct:[id number] unknown) (unknown) (no (unknown) (unknown) : 1970 (units (unknown) date) unknown) (unknown) (no (unknown) (unknown) Date of Service: (units (unknown) date) 07/12/22 unknown) (unknown) (no (unknown) (unknown) Date of Service: (units (unknown) date) 06/16/22 unknown) (unknown) (no (unknown) (unknown) Departure (units (unkn own) date) unknown) (unknown) (no (unknown) (unknown) Depression (units (unk nown) date) unknown) (unknown) (no (unknown) (unknown) Discharge Plan (units (unknown) date) unknown) (unknown) (no (unknown) (unknown) Discontinued (units (u nknown) date) Medications unknown) (unknown) (no (unknown) (unknown) Discussed the (units ( unknown) date) findings with the unknown) hospitalist team. (unknown) (no (unknown) (unknown) Documented By: KB (units (unknown) date) unknown) (unknown) (no (unknown) (unknown) ED Orders (units (unkn own) date) unknown) (unknown) (no (unknown) (unknown) ER Physician: (units ( unknown) date) Michelle Wilson unknown) (unknown) (no (unknown) (unknown) Emergency Report (units (unknown) date) unknown) (unknown) (no (unknown) (unknown) Essential (units (unkn own) date) hypertension unknown) (unknown) (no (unknown) (unknown) Exam (units (unkno wn) date) unknown) (unknown) (no (unknown) (unknown) Family History (units (unknown) date) (Reviewed 06/17/22 @ unknown) 02:22 by Daniel Hector MD) (unknown) (no (unknown) (unknown) Father Hypertension (unit s (unknown) date) unknown) (unknown) (no (unknown) (unknown) General (units (unkno wn) date) unknown) (unknown) (no (unknown) (unknown) Generalized anxiety (unit s (unknown) date) disorder with panic unknown) attacks (unknown) (no (unknown) (unknown) HPI - Extremity (units (unknown) date) Problem unknown) (unknown) (no (unknown) (unknown) HPI Narrative: (units (unknown) date) unknown) (unknown) (no (unknown) (unknown) Herniated (units (unkn own) date) intervertebral disc unknown) of lumbar spine (unknown) (no (unknown) (unknown) History of Present (units (unknown) date) Illness unknown) (unknown) (no (unknown) (unknown) Home Medications (units (unknown) date) unknown) (unknown) (no (unknown) (unknown) Hx of cervical (units (unknown) date) discectomy (-2013) unknown) (unknown) (no (unknown) (unknown) Hyperlipidemia (units (unknown) date) unknown) (unknown) (no (unknown) (unknown) Hypertension (units (u nknown) date) unknown) (unknown) (no (unknown) (unknown) INDICATION:? Chest (units (unknown) date) pain, left arm pain, unknown) underlying CAD, hypertension (unknown) (no (unknown) (unknown) Imaging Data (units (u nknown) date) unknown) (unknown) (no (unknown) (unknown) Initial Vital Signs (unit s (unknown) date) unknown) (unknown) (no (unknown) (unknown) Initial Vital (units ( unknown) date) Signs: unknown) (unknown) (no (unknown) (unknown) [facility] (units (unknown) date) [address] unknown) [place] [address] (unknown) (no (unknown) (unknown) [facility] (units (unknown) date) unknown) (unknown) (no (unknown) (unknown) Last Admin: (units (un known) date) 07/12/22 15:58 Dose: unknown) 2 each (unknown) (no (unknown) (unknown) Last Admin: (units (un known) date) 07/12/22 15:58 Dose: unknown) 2 tab (unknown) (no (unknown) (unknown) Last Admin: (units (un known) date) 07/12/22 15:58 Dose: unknown) 40 mg (unknown) (no (unknown) (unknown) Last Admin: (units (un known) date) 07/12/22 16:19 Dose: unknown) 750 mg (unknown) (no (unknown) (unknown) Lidocaine (units (unkn own) date) (Lidocaine Patch 1 unknown) Each Adh..Patch) 2 each TOP NOW ONE (unknown) (no (unknown) (unknown) Loc: [facility] (units (unkno wn) date) unknown) (unknown) (no (unknown) (unknown) MDM - Extremity (units (unknown) date) (Nontraumatic) unknown) (unknown) (no (unknown) (unknown) MR#: [id number] (units (unknown) date) unknown) (unknown) (no (unknown) (unknown) Kenziebaljit Anthony MCDUFFIE (unit s (unknown) date) - unknown) (unknown) (no (unknown) (unknown) Medical History (units (unknown) date) (Reviewed 06/17/22 @ unknown) 02:22 by Daniel Hector MD) (unknown) (no (unknown) (unknown) Medical Records (units (unknown) date) unknown) (unknown) (no (unknown) (unknown) Medical records (units (unknown) date) narrative: unknown) (unknown) (no (unknown) (unknown) Medication (units (unk nown) date) Instructions unknown) Recorded Confirmed (unknown) (no (unknown) (unknown) Medication (units (unk nown) date) Instructions unknown) Recorded (unknown) (no (unknown) (unknown) Methocarbamol (units ( unknown) date) (Methocarbamol 500 unknown) Mg Tablet) 750 mg PO NOW ONE (unknown) (no (unknown) (unknown) Mode of arrival: (units (unknown) date) Ambulatory unknown) (unknown) (no (unknown) (unknown) Mother Diabetes (units (unknown) date) mellitus unknown) (unknown) (no (unknown) (unknown) Flaco Ma MD (units (unknown) date) [Physician] - 5-7 unknown) days (unknown) (no (unknown) (unknown) My Impression: (units (unknown) date) unknown) (unknown) (no (unknown) (unknown) New (units (unkno wn) date) unknown) (unknown) (no (unknown) (unknown) No Action (units (unkn own) date) unknown) (unknown) (no (unknown) (unknown) No significant (units (unknown) date) arrhythmias seen. unknown) (unknown) (no (unknown) (unknown) Nuclear Medicine (units (unknown) date) Report unknown) (unknown) (no (unknown) (unknown) On Thursday, please (units (unknown) date) call Dr. Dickerson and unknown) discuss follow-up, please touch base (unknown) (no (unknown) (unknown) Opiate addiction (units (unknown) date) unknown) (unknown) (no (unknown) (unknown) Ordered: (units (unkno wn) date) unknown) (unknown) (no (unknown) (unknown) Ordering Provider: (units (unknown) date) Daniel Hector MD unknown) (unknown) (no (unknown) (unknown) Orders (units (unkno wn) date) unknown) (unknown) (no (unknown) (unknown) Oxycodone/Acetamino (unit s (unknown) date) phen unknown) (Oxycodone/Acetamino phen 5/325 Tablet) 2 tab PO NOW ONE (unknown) (no (unknown) (unknown) Oxygen Delivery (units (unknown) date) Method 07/12/22 unknown) 14:01 (unknown) (no (unknown) (unknown) Oxygen Delivery (units (unknown) date) Method Room Air unknown) (unknown) (no (unknown) (unknown) PROCEDURE:? (units (un known) date) Exercise stress unknown) test. 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 unknown) (unknown) (no (unknown) (unknown) Patient (units (unkno wn) date) Disposition: Home unknown) (unknown) (no (unknown) (unknown) Patient History (units (unknown) date) unknown) (unknown) (no (unknown) (unknown) Patient: Celeste (units (unknown) date) Anthony MCDUFFIE MR# unknown) (unknown) (no (unknown) (unknown) Patient: Celeste (units (unknown) date) IIAnthony unknown) (unknown) (no (unknown) (unknown) Peripheral (units (unk nown) date) neuropathy unknown) (unknown) (no (unknown) (unknown) Prednisone (units (unk nown) date) (Prednisone 20 Mg unknown) Tablet) 40 mg PO NOW ONE (unknown) (no (unknown) (unknown) Prescriptions: (units (unknown) date) unknown) (unknown) (no (unknown) (unknown) Previous Rx's (units ( unknown) date) unknown) (unknown) (no (unknown) (unknown) Procedure: Exercise (unit s (unknown) date) treadmill NON NUC unknown) (unknown) (no (unknown) (unknown) Pulse Oximetry 97 (units (unknown) date) 07/12/22 14:01 unknown) (unknown) (no (unknown) (unknown) Pulse Oximetry 97 (units (unknown) date) unknown) (unknown) (no (unknown) (unknown) Pulse Rate 93 H (units (unknown) date) 07/12/22 14:01 unknown) (unknown) (no (unknown) (unknown) Pulse Rate 93 H (units (unknown) date) unknown) (unknown) (no (unknown) (unknown) REACTION' (units (unkn own) date) unknown) (unknown) (no (unknown) (unknown) RLS (restless legs (units (unknown) date) syndrome) unknown) (unknown) (no (unknown) (unknown) Referrals: (units (unk nown) date) unknown) (unknown) (no (unknown) (unknown) Related Data (units (u nknown) date) unknown) (unknown) (no (unknown) (unknown) Respiratory Rate 15 (unit s (unknown) date) 07/12/22 14:01 unknown) (unknown) (no (unknown) (unknown) Respiratory Rate 15 (unit s (unknown) date) unknown) (unknown) (no (unknown) (unknown) Rx Instructions: (units (unknown) date) unknown) (unknown) (no (unknown) (unknown) Signed By: (units (unk nown) date) unknown) (unknown) (no (unknown) (unknown) Signed (units (unkno wn) date) unknown) (unknown) (no (unknown) (unknown) [facility] (units ( unknown) date) Hospital when to unknown) schedule his neck surgery.? Patient states left (unknown) (no (unknown) (unknown) [facility] (units ( unknown) date) Hospital.? Patient unknown) rates 8/10 chest pain at this time.? EKG and (unknown) (no (unknown) (unknown) Smoking Status: (units (unknown) date) Current every day unknown) smoker (unknown) (no (unknown) (unknown) Social History (units (unknown) date) (Reviewed 06/16/22 @ unknown) 21:00 by Flaco Brock MD) (unknown) (no (unknown) (unknown) Source: patient (units (unknown) date) unknown) (unknown) (no (unknown) (unknown) Spinal stenosis of (units (unknown) date) lumbar region with unknown) neurogenic claudication (unknown) (no (unknown) (unknown) Spondylolisthesis (units (unknown) date) of lumbar region unknown) (unknown) (no (unknown) (unknown) Stand Alone Forms: (units (unknown) date) Patient Portal/API unknown) (unknown) (no (unknown) (unknown) Stated complaint: (units (unknown) date) LT side pain from unknown) neck down to foot t-5 (unknown) (no (unknown) (unknown) Stenosis of artery (units (unknown) date) unknown) (unknown) (no (unknown) (unknown) Stop: 07/12/22 (units (unknown) date) 15:44 unknown) (unknown) (no (unknown) (unknown) Substance Use Type: (unit s (unknown) date) does not use unknown) (unknown) (no (unknown) (unknown) Surgical History (units (unknown) date) (Reviewed 06/17/22 @ unknown) 02:22 by Daniel Hector MD) (unknown) (no (unknown) (unknown) Temperature 98.4 F (units (unknown) date) 07/12/22 14:01 unknown) (unknown) (no (unknown) (unknown) Temperature 98.4 F (units (unknown) date) unknown) (unknown) (no (unknown) (unknown) This is a (units (unkno wn) date) 52-year-old unknown) gentleman presents to the emergency department complaining (unknown) (no (unknown) (unknown) Time Seen by (units (u nknown) date) Provider: 07/12/22 unknown) 15:37 (unknown) (no (unknown) (unknown) 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 (units (unkno wn) date) unknown) (unknown) (no (unknown) (unknown) Vital Signs - 8 hr (units (unknown) date) unknown) (unknown) (no (unknown) (unknown) Vital Signs (units (un known) date) unknown) (unknown) (no (unknown) (unknown) Vital signs: (units (u nknown) date) unknown) (unknown) (no (unknown) (unknown) Vitamin D (units (unkn own) date) deficiency unknown) (unknown) (no (unknown) (unknown) XR lumbar spine (units (unknown) date) 2-3V Stat unknown) (unknown) (no (unknown) (unknown) [ ] New medication (units (unknown) date) written as a paper unknown) prescription (unknown) (no (unknown) (unknown) [ ] No new (units (unk nown) date) medications given unknown) (unknown) (no (unknown) (unknown) [x ] New medication (unit s (unknown) date) prescriptions sent unknown) to your pharmacy: [ [facility]] (unknown) (no (unknown) (unknown) alcohol intake (units (unknown) date) frequency: a few unknown) times a month (unknown) (no (unknown) (unknown) alcohol intake: (units (unknown) date) never unknown) (unknown) (no (unknown) (unknown) alprazolam 0.5 mg (units (unknown) date) tablet 0.5 mg PO unknown) BEDTIME PRN sleep #14 05/20/22 (unknown) (no (unknown) (unknown) alprazolam 0.5 mg (units (unknown) date) tablet unknown) (unknown) (no (unknown) (unknown) and 38 seconds, (units (unknown) date) achieved maximum unknown) heart rate of 167, which was 101 percent of (unknown) (no (unknown) (unknown) and plan for (units (u nknown) date) chronic pain unknown) regimen. Thank you for coming in for evaluation, I am (unknown) (no (unknown) (unknown) and states that he (units (unknown) date) is seen Dr. Ma unknown) for cervical spine surgery next month (unknown) (no (unknown) (unknown) and water every 8 (units (unknown) date) hours as needed. You unknown) can take Percocet occasionally for (unknown) (no (unknown) (unknown) appointment. Let (units (unknown) date) them know you were unknown) seen in the Emergency Department and that we (unknown) (no (unknown) (unknown) arm discomfort is (units (unknown) date) new. unknown) (unknown) (no (unknown) (unknown) arrhythmias.? The (units (unknown) date) patient has resting, unknown) squeezing left-sided chest pain, which (unknown) (no (unknown) (unknown) asked that you be (units (unknown) date) seen for follow-up. unknown) We will electronically transmit a record (unknown) (no (unknown) (unknown) aspect over the (units (unknown) date) last 3 or 4 days.? unknown) Patient has a history of cervical (unknown) (no (unknown) (unknown) aspirin 81 mg (units ( unknown) date) tablet,delayed 81 mg unknown) PO DAILY 04/11/22 05/20/22 (unknown) (no (unknown) (unknown) aspirin 81 mg (units ( unknown) date) tablet,delayed unknown) release (DR/EC) (unknown) (no (unknown) (unknown) atorvastatin 40 mg (units (unknown) date) tablet 40 mg PO unknown) BEDTIME #90 tabs 04/11/22 (unknown) (no (unknown) (unknown) atorvastatin 40 mg (units (unknown) date) tablet unknown) (unknown) (no (unknown) (unknown) baseline resting (units (unknown) date) left-sided, unknown) squeezing chest pain, which got mildly worse during (unknown) (no (unknown) (unknown) breakthrough pain, (units (unknown) date) continue on your unknown) gabapentin for the nerve pain. You (unknown) (no (unknown) (unknown) bupropion HCl 150 (units (unknown) date) mg 24 hr tablet, 150 unknown) mg PO BID #60 tabs 05/20/22 (unknown) (no (unknown) (unknown) bupropion HCl 150 (units (unknown) date) mg tablet extended unknown) release 24 hr (unknown) (no (unknown) (unknown) but does have (units ( unknown) date) dyspnea.? Patient unknown) had heart catheterization 3 or 5 years ago and (unknown) (no (unknown) (unknown) chest pain protocol (unit s (unknown) date) being done.? Patient unknown) originally came in for left-sided neck (unknown) (no (unknown) (unknown) chronic neck pain.? (unit s (unknown) date) Is going to hear unknown) back from ortho spine surgeon next week at (unknown) (no (unknown) (unknown) concerning (units (unk nown) date) symptoms, such as unknown) [fever greater than 101F, chills, worsening pain, (unknown) (no (unknown) (unknown) dd: 06/17/2022 (units (unknown) date) 12:47:00 dt: unknown) 06/17/2022 17:58:00 (unknown) (no (unknown) (unknown) doc#: (units (unkno wn) date) [id number]/job#: [id number] unknown) (unknown) (no (unknown) (unknown) droperidol (units (unk nown) date) [DROPERIDOL] Allergy unknown) Mild 'COGENIC Verified 07/12/22 14:01 (unknown) (no (unknown) (unknown) dysuria, (units (unkno wn) date) incontinence, or unknown) other weakness.? He denies any tenderness to his (unknown) (no (unknown) (unknown) establish care with (unit s (unknown) date) one of the [place] unknown) [facility] primary care providers. (unknown) (no (unknown) (unknown) exercise and (units (u nknown) date) returned back to the unknown) baseline in recovery.? Normal hemodynamic (unknown) (no (unknown) (unknown) extended release (units (unknown) date) unknown) (unknown) (no (unknown) (unknown) for further (units (un known) date) coronary artery unknown) disease diagnosis and risk stratification. (unknown) (no (unknown) (unknown) gabapentin 600 mg (units (unknown) date) tablet 600 mg PO TID unknown) #270 tabs 05/20/22 (unknown) (no (unknown) (unknown) gabapentin 600 mg (units (unknown) date) tablet unknown) (unknown) (no (unknown) (unknown) got slightly (units (u nknown) date) pronounced during unknown) exercise with quick recovery.? The patient has (unknown) (no (unknown) (unknown) he states there was (unit s (unknown) date) an error at unable unknown) to stand.? Does take blood pressure (unknown) (no (unknown) (unknown) household members: (units (unknown) date) family unknown) (unknown) (no (unknown) (unknown) inferolateral (units ( unknown) date) leads, likely part unknown) of repolarization changes.? During exercise, (unknown) (no (unknown) (unknown) leave on most (units ( unknown) date) painful area for up unknown) to 12 hrs (unknown) (no (unknown) (unknown) lidocaine 5 % (units ( unknown) date) topical patch 2 unknown) patch topical DAILY #30 ea 07/12/22 (unknown) (no (unknown) (unknown) lidocaine (units (unkn own) date) [Lidoderm] 5 % unknown) adhesive patch,medicated (unknown) (no (unknown) (unknown) lumbar spine but (units (unknown) date) states he has a unknown) history of chronic low back pain. No nausea (unknown) (no (unknown) (unknown) medication (units (unk nown) date) cholesterol unknown) medication and does smoke.? Family history of valve (unknown) (no (unknown) (unknown) metoprolol tartrate (unit s (unknown) date) 25 mg tablet 25 mg unknown) PO BID #180 tabs 04/09/22 (unknown) (no (unknown) (unknown) metoprolol tartrate (unit s (unknown) date) 25 mg tablet unknown) (unknown) (no (unknown) (unknown) mg tablet (units (unkn own) date) (Percocet) unknown) (unknown) (no (unknown) (unknown) of today's note if (units (unknown) date) your PCP is in our unknown) system (unknown) (no (unknown) (unknown) of worsening nerve (units (unknown) date) like pain from his unknown) left hip to his left knee on lateral (unknown) (no (unknown) (unknown) oxycodone-acetamino (unit s (unknown) date) phen 5 mg-325 1 tab unknown) PO Q8H PRN pain #10 tabs 07/12/22 (unknown) (no (unknown) (unknown) oxycodone-acetamino (unit s (unknown) date) phen [Percocet] unknown) 5-325 mg tablet (unknown) (no (unknown) (unknown) pain but did not (units (unknown) date) tell the triage unknown) nurse about the chest pain.? Patient does have (unknown) (no (unknown) (unknown) patient denies any (units (unknown) date) numbness or unknown) tingling, weakness, fever, chills, cough, (unknown) (no (unknown) (unknown) persistent vomiting (unit s (unknown) date) or other bothersome unknown) symptoms]. (unknown) (no (unknown) (unknown) prednisone 20 mg (units (unknown) date) tablet 20 mg PO unknown) DAILY 5 days #5 tabs 07/12/22 (unknown) (no (unknown) (unknown) prednisone 20 mg (units (unknown) date) tablet unknown) (unknown) (no (unknown) (unknown) primary care and has (unit s (unknown) date) a history of type 2 unknown) diabetes, hyperlipidemia, hypertension, (unknown) (no (unknown) (unknown) radiculopathy (units ( unknown) date) unknown) (unknown) (no (unknown) (unknown) radiculopathy, (units (unknown) date) chronic pain and unknown) chronic back pain.? He sees Dr. Mitchell for (unknown) (no (unknown) (unknown) release (units (unkno wn) date) unknown) (unknown) (no (unknown) (unknown) replacement in the (units (unknown) date) heart.? But no DE. unknown) heart catheterization was done over at (unknown) (no (unknown) (unknown) response.? No (units ( unknown) date) significant unknown) arrhythmias.? Consider repeating exercise stress test (unknown) (no (unknown) (unknown) sertraline 50 mg (units (unknown) date) tablet 50 mg PO unknown) DAILY #90 tabs 04/09/22 (unknown) (no (unknown) (unknown) sertraline 50 mg (units (unknown) date) tablet unknown) (unknown) (no (unknown) (unknown) something topical (units (unknown) date) as needed for pain. unknown) (unknown) (no (unknown) (unknown) sorry for your (units (unknown) date) pain. Please take unknown) ibuprofen 800 mg with Tylenol 975 mg with food (unknown) (no (unknown) (unknown) supervision of an (units (unknown) date) attending staff.? unknown) She walked on Dar protocol for 8 minutes (unknown) (no (unknown) (unknown) tabs (units (unkno wn) date) unknown) (unknown) (no (unknown) (unknown) target heart rate.? (units (unknown) date) Baseline blood unknown) pressure 140/100 mmHg and peak blood pressure (unknown) (no (unknown) (unknown) the patient has up (units (unknown) date) to [address] unknown) depression in the inferolateral leads (unknown) (no (unknown) (unknown) underlying resting, (unit s (unknown) date) slight concave unknown) ST-depression in inferolateral leads, which (unknown) (no (unknown) (unknown) was on a scale of 1 (unit s (unknown) date) to 10, 2 in unknown) intensity.? During exercise, it became worse to (unknown) (no (unknown) (unknown) with Dr. Mitchell (units (unknown) date) regarding unknown) prescription medications, possible steroid injections, (unknown) (no (unknown) (unknown) with imaging (units (u nknown) date) modality, like a unknown) nuclear perfusion study or exercise stress echo (unknown) (no (unknown) (unknown) with quick recovery (unit s (unknown) date) within 30 seconds to unknown) the baseline.? No significant Result panel 608 (unknown) (no (unknown) (unknown) (no value) (units (unk nown) date) unknown) (unknown) (no (unknown) (unknown) (Lidoderm) (units (unk nown) date) unknown) (unknown) (no (unknown) (unknown) *If you do not have (unit s (unknown) date) a primary care unknown) provider please contact [phone] to (unknown) (no (unknown) (unknown) *Please continue to (unit s (unknown) date) take your regular unknown) medications as directed. (unknown) (no (unknown) (unknown) *Please follow up (units (unknown) date) with your primary unknown) care provider in 2-3 days, call for an (unknown) (no (unknown) (unknown) *Return to (units (unk nown) date) Emergency Department unknown) if you should have any new, worsening, or (unknown) (no (unknown) (unknown) *What to do: (units (u nknown) date) unknown) (unknown) (no (unknown) (unknown) *You have been (units ( unknown) date) diagnosed with unknown) [cervical radiculopathy and lumbar radiculopathy.] (unknown) (no (unknown) (unknown) 0.5 mg PO BEDTIME (units (unknown) date) PRN (Reason: sleep) unknown) Qty: 14 0RF (unknown) (no (unknown) (unknown) 07/12/22 15:38 (units (unknown) date) unknown) (unknown) (no (unknown) (unknown) 07/12/22 (units (unkno wn) date) unknown) (unknown) (no (unknown) (unknown) 1 tab PO Q8H PRN (units (unknown) date) (Reason: pain) Qty: unknown) 10 0RF (unknown) (no (unknown) (unknown) [address] [place] [address] (units (unknown) date) unknown) (unknown) (no (unknown) (unknown) 14:01 (units (unkno wn) date) unknown) (unknown) (no (unknown) (unknown) 150 mg PO BID Qty: (units (unknown) date) 60 0RF unknown) (unknown) (no (unknown) (unknown) 160/88 mmHg.? (units ( unknown) date) Baseline rhythm was unknown) sinus with slight concave ST-depression in (unknown) (no (unknown) (unknown) 2 patch topical (units (unknown) date) DAILY Qty: 30 0RF unknown) (unknown) (no (unknown) (unknown) 20 mg PO DAILY 5 (units (unknown) date) Days Qty: 5 0RF unknown) (unknown) (no (unknown) (unknown) 211-1 (units (unkno wn) date) unknown) (unknown) (no (unknown) (unknown) 25 mg PO BID Qty: (units (unknown) date) 180 3RF unknown) (unknown) (no (unknown) (unknown) 40 mg PO BEDTIME (units (unknown) date) Qty: 90 3RF unknown) (unknown) (no (unknown) (unknown) 5 and spread to the (unit s (unknown) date) entire chest and unknown) returned back to the baseline in recovery. (unknown) (no (unknown) (unknown) 50 mg PO DAILY Qty: (unit s (unknown) date) 90 3RF unknown) (unknown) (no (unknown) (unknown) 600 mg PO TID Qty: (units (unknown) date) 270 3RF unknown) (unknown) (no (unknown) (unknown) 81 mg PO DAILY (units (unknown) date) unknown) (unknown) (no (unknown) (unknown) : [id number] (units (u nknown) date) unknown) (unknown) (no (unknown) (unknown) ? (units (unkno wn) date) unknown) (unknown) (no (unknown) (unknown) ADD (attention (units (unknown) date) deficit disorder) unknown) (unknown) (no (unknown) (unknown) [facility] MD (units (unknown) date) [Primary Care unknown) Provider] (unknown) (no (unknown) (unknown) Accession Number: (units (unknown) date) [id number] ?? unknown) (unknown) (no (unknown) (unknown) Accession Number: (units (unknown) date) [id number] ?? unknown) (unknown) (no (unknown) (unknown) Acct:[id number] (units (unknown) date) unknown) (unknown) (no (unknown) (unknown) Acct:[id number] (units (unknown) date) unknown) (unknown) (no (unknown) (unknown) Activity (units (unkno wn) date) Restrictions/Additio unknown) nal Instructions: (unknown) (no (unknown) (unknown) Age/Sex: 52 / M (units (unknown) date) unknown) (unknown) (no (unknown) (unknown) Allergies (units (unkn own) date) unknown) (unknown) (no (unknown) (unknown) Allergy/AdvReac (units (unknown) date) Type Severity unknown) Reaction Status Date / Time (unknown) (no (unknown) (unknown) JEFFREY Don [id number] (unit s (unknown) date) unknown) (unknown) (no (unknown) (unknown) Approved by: [place]so (units (unknown) date) Alex Barahona on unknown) 07/12/2022 at 15:24? (unknown) (no (unknown) (unknown) Asthma (units (unkno wn) date) unknown) (unknown) (no (unknown) (unknown) Blood Pressure (units (unknown) date) 176/93 H 07/12/22 unknown) 14:01 (unknown) (no (unknown) (unknown) Blood Pressure (units (unknown) date) 176/93 H unknown) (unknown) (no (unknown) (unknown) Bones:? 5 (units (unkn own) date) [id number] unknown) vertebrae are present.? There is normal bony (unknown) (no (unknown) (unknown) CARDIAC STRESS:? (units (unknown) date) The patient unknown) underwent exercise stress test under the (unknown) (no (unknown) (unknown) COMPARISON:? [facility] (unit s (unknown) date) [facility], XR unknown) LUMBAR SPINE 2-3V, 06/13/2021, 13:37. (unknown) (no (unknown) (unknown) CONCLUSION:? (units (un known) date) Exercise stress test unknown) inconclusive for inducible ischemia in view of (unknown) (no (unknown) (unknown) COPIES MNE: PALV; (units (unknown) date) unknown) (unknown) (no (unknown) (unknown) CT - cervical (units ( unknown) date) spine: unknown) (unknown) (no (unknown) (unknown) CT cervical spine (units (unknown) date) from 06/16/2022 unknown) without new traumatic injury or new (unknown) (no (unknown) (unknown) Cervical radicular (units (unknown) date) pain, Lumbar unknown) radiculopathy (unknown) (no (unknown) (unknown) Cervical (units (unkno wn) date) radiculopathy due to unknown) osteoarthritis of spine (unknown) (no (unknown) (unknown) Chief complaint: (units (unknown) date) Extremity unknown) Problem,Nontraumatic (unknown) (no (unknown) (unknown) Clinical (units (unkno wn) date) Impression: unknown) (unknown) (no (unknown) (unknown) Copy of cardiac (units (unknown) date) stress test from unknown) 06/17/2022 (unknown) (no (unknown) (unknown) Coronary artery (units (unknown) date) disease unknown) (unknown) (no (unknown) (unknown) Course of Care: (units (unknown) date) unknown) (unknown) (no (unknown) (unknown) Course (units (unkno wn) date) unknown) (unknown) (no (unknown) (unknown) DATE OF SERVICE:? (units (unknown) date) 06/17/2022 unknown) (unknown) (no (unknown) (unknown) DICTATING MD/COPIES (unit s (unknown) date) TO: Vicente Mccoy, unknown) MD (unknown) (no (unknown) (unknown) : 1970 (units (unknown) date) Acct:[id number] unknown) (unknown) (no (unknown) (unknown) : 1970 (units (unknown) date) unknown) (unknown) (no (unknown) (unknown) Date of Service: (units (unknown) date) 07/12/22 unknown) (unknown) (no (unknown) (unknown) Date of Service: (units (unknown) date) 06/16/22 unknown) (unknown) (no (unknown) (unknown) Decision (units (unkno wn) date) rules/scores unknown) evaluated: (unknown) (no (unknown) (unknown) Departure (units (unkn own) date) unknown) (unknown) (no (unknown) (unknown) Depression (units (unk nown) date) unknown) (unknown) (no (unknown) (unknown) Differential (units (u nknown) date) diagnoses include, unknown) but are not limited to: . (unknown) (no (unknown) (unknown) Discharge Plan (units (unknown) date) unknown) (unknown) (no (unknown) (unknown) Discontinued (units (u nknown) date) Medications unknown) (unknown) (no (unknown) (unknown) Discussed the (units ( unknown) date) findings with the unknown) hospitalist team. (unknown) (no (unknown) (unknown) Discussion of (units ( unknown) date) Management with unknown) other Health Professionals: (unknown) (no (unknown) (unknown) Documented By: KB (units (unknown) date) unknown) (unknown) (no (unknown) (unknown) ED Orders (units (unkn own) date) unknown) (unknown) (no (unknown) (unknown) ED provider (units (un known) date) independent unknown) interpretation (unknown) (no (unknown) (unknown) ER Physician: (units ( unknown) date) Michelle Wilson unknown) (unknown) (no (unknown) (unknown) Electronically (units (unknown) date) signed by: LEATHA Heck (unknown) (no (unknown) (unknown) Emergency Report (units (unknown) date) unknown) (unknown) (no (unknown) (unknown) Essential (units (unkn own) date) hypertension unknown) (unknown) (no (unknown) (unknown) Exam (units (unkno wn) date) unknown) (unknown) (no (unknown) (unknown) FINDINGS:? (units (unk nown) date) unknown) (unknown) (no (unknown) (unknown) Family History (units (unknown) date) (Reviewed 06/17/22 @ unknown) 02:22 by Daniel Hector MD) (unknown) (no (unknown) (unknown) Father Hypertension (unit s (unknown) date) unknown) (unknown) (no (unknown) (unknown) General (units (unkno wn) date) unknown) (unknown) (no (unknown) (unknown) Generalized anxiety (unit s (unknown) date) disorder with panic unknown) attacks (unknown) (no (unknown) (unknown) HPI - Extremity (units (unknown) date) Problem unknown) (unknown) (no (unknown) (unknown) HPI Narrative: (units (unknown) date) unknown) (unknown) (no (unknown) (unknown) Herniated (units (unkn own) date) intervertebral disc unknown) of lumbar spine (unknown) (no (unknown) (unknown) History of Present (units (unknown) date) Illness unknown) (unknown) (no (unknown) (unknown) Home Medications (units (unknown) date) unknown) (unknown) (no (unknown) (unknown) Hx of cervical (units (unknown) date) discectomy () unknown) (unknown) (no (unknown) (unknown) Hyperlipidemia (units (unknown) date) unknown) (unknown) (no (unknown) (unknown) Hypertension (units (u nknown) date) unknown) (unknown) (no (unknown) (unknown) I performed a (units ( unknown) date) preliminary unknown) independent interpretation of the following imaging (unknown) (no (unknown) (unknown) I, Michelle Wilson, (units (unknown) date) LEATHA, personally unknown) performed the services described in the (unknown) (no (unknown) (unknown) IMPRESSION:? (units (u nknown) date) unknown) (unknown) (no (unknown) (unknown) INDICATION:? Chest (units (unknown) date) pain, left arm pain, unknown) underlying CAD, hypertension (unknown) (no (unknown) (unknown) INDICATIONS:? (units ( unknown) date) worsening sciatica unknown) (unknown) (no (unknown) (unknown) Imaging Data (units (u nknown) date) unknown) (unknown) (no (unknown) (unknown) Initial Vital Signs (unit s (unknown) date) unknown) (unknown) (no (unknown) (unknown) Initial Vital (units ( unknown) date) Signs: unknown) (unknown) (no (unknown) (unknown) [facility] (units (unknown) date) [address] [place] [address] unknown) [place] [address] (unknown) (no (unknown) (unknown) [facility] (units (unknown) date) unknown) (unknown) (no (unknown) (unknown) Last Admin: (units (un known) date) 07/12/22 15:58 Dose: unknown) 2 each (unknown) (no (unknown) (unknown) Last Admin: (units (un known) date) 07/12/22 15:58 Dose: unknown) 2 tab (unknown) (no (unknown) (unknown) Last Admin: (units (un known) date) 07/12/22 15:58 Dose: unknown) 40 mg (unknown) (no (unknown) (unknown) Last Admin: (units (un known) date) 07/12/22 16:19 Dose: unknown) 750 mg (unknown) (no (unknown) (unknown) Lidocaine (units (unkn own) date) (Lidocaine Patch 1 unknown) Each Adh..Patch) 2 each TOP NOW ONE (unknown) (no (unknown) (unknown) Loc: AC (units (unkno wn) date) unknown) (unknown) (no (unknown) (unknown) Loc: ED (units (unkno wn) date) unknown) (unknown) (no (unknown) (unknown) Lower lumbar spine (units (unknown) date) degenerative disc unknown) disease and arthropathy, unchanged (unknown) (no (unknown) (unknown) MDM - Extremity (units (unknown) date) (Nontraumatic) unknown) (unknown) (no (unknown) (unknown) MDM Narrative (units ( unknown) date) unknown) (unknown) (no (unknown) (unknown) MIPS: This (units (unk nown) date) encounter doesn't unknown) have any diagnosis associated with MIPS criteria. (unknown) (no (unknown) (unknown) MR#: [id number] (units (unknown) date) unknown) (unknown) (no (unknown) (unknown) Anthony Alonso II (unit s (unknown) date) - unknown) (unknown) (no (unknown) (unknown) Medical History (units (unknown) date) (Reviewed 06/17/22 @ unknown) 02:22 by Daniel Hector MD) (unknown) (no (unknown) (unknown) Medical Records (units (unknown) date) unknown) (unknown) (no (unknown) (unknown) Medical decision (units (unknown) date) making narrative: unknown) (unknown) (no (unknown) (unknown) Medical records (units (unknown) date) narrative: unknown) (unknown) (no (unknown) (unknown) Medication (units (unk nown) date) Instructions unknown) Recorded Confirmed (unknown) (no (unknown) (unknown) Medication (units (unk nown) date) Instructions unknown) Recorded (unknown) (no (unknown) (unknown) Methocarbamol (units ( unknown) date) (Methocarbamol 500 unknown) Mg Tablet) 750 mg PO NOW ONE (unknown) (no (unknown) (unknown) Mode of arrival: (units (unknown) date) Ambulatory unknown) (unknown) (no (unknown) (unknown) Mother Diabetes (units (unknown) date) mellitus unknown) (unknown) (no (unknown) (unknown) Flaco Ma MD (units (unknown) date) [Physician] - 5-7 unknown) days (unknown) (no (unknown) (unknown) My Impression: (units (unknown) date) unknown) (unknown) (no (unknown) (unknown) New (units (unkno wn) date) unknown) (unknown) (no (unknown) (unknown) No Action (units (unkn own) date) unknown) (unknown) (no (unknown) (unknown) No significant (units (unknown) date) arrhythmias seen. unknown) (unknown) (no (unknown) (unknown) Nuclear Medicine (units (unknown) date) Report unknown) (unknown) (no (unknown) (unknown) Occasional wrong (units (unknown) date) word or 'sound unknown) alike' substitutions may have occurred due to (unknown) (no (unknown) (unknown) On Thursday, please (units (unknown) date) call Dr. Dickerson and unknown) discuss follow-up, please touch base (unknown) (no (unknown) (unknown) Opiate addiction (units (unknown) date) unknown) (unknown) (no (unknown) (unknown) Ordered: (units (unkno wn) date) unknown) (unknown) (no (unknown) (unknown) Ordering Provider: (units (unknown) date) Daniel Hector MD unknown) (unknown) (no (unknown) (unknown) Ordering Provider: (units (unknown) date) Michelle Wilson unknown) (unknown) (no (unknown) (unknown) Orders (units (unkno wn) date) unknown) (unknown) (no (unknown) (unknown) Oxycodone/Acetamino (unit s (unknown) date) phen unknown) (Oxycodone/Acetamino phen 5/325 Tablet) 2 tab PO NOW ONE (unknown) (no (unknown) (unknown) Oxygen Delivery (units (unknown) date) Method 07/12/22 unknown) 14:01 (unknown) (no (unknown) (unknown) Oxygen Delivery (units (unknown) date) Method Room Air unknown) (unknown) (no (unknown) (unknown) PROCEDURE:? (units (un known) date) Exercise stress unknown) test. (unknown) (no (unknown) (unknown) PROCEDURE:? 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 (unknown) (no (unknown) (unknown) Patient: Celeste (units (unknown) date) IIAnthony MR# unknown) (unknown) (no (unknown) (unknown) Patient: Celeste (units (unknown) date) IIAnthony unknown) (unknown) (no (unknown) (unknown) Peripheral (units (unk nown) date) neuropathy unknown) (unknown) (no (unknown) (unknown) Portions of this (units (unknown) date) chart have been unknown) created with [employer] voice recognition software. (unknown) (no (unknown) (unknown) Prednisone (units (unk nown) date) (Prednisone 20 Mg unknown) Tablet) 40 mg PO NOW ONE (unknown) (no (unknown) (unknown) Prescriptions: (units (unknown) date) unknown) (unknown) (no (unknown) (unknown) Previous Rx's (units ( unknown) date) unknown) (unknown) (no (unknown) (unknown) Procedure: Exercise (unit s (unknown) date) treadmill NON NUC unknown) (unknown) (no (unknown) (unknown) Procedure: XR (units ( unknown) date) lumbar spine 2-3V unknown) (unknown) (no (unknown) (unknown) Pulse Oximetry 97 (units (unknown) date) 07/12/22 14:01 unknown) (unknown) (no (unknown) (unknown) Pulse Oximetry 97 (units (unknown) date) unknown) (unknown) (no (unknown) (unknown) Pulse Rate 93 H (units (unknown) date) 07/12/22 14:01 unknown) (unknown) (no (unknown) (unknown) Pulse Rate 93 H (units (unknown) date) unknown) (unknown) (no (unknown) (unknown) REACTION' (units (unkn own) date) unknown) (unknown) (no (unknown) (unknown) RLS (restless legs (units (unknown) date) syndrome) unknown) (unknown) (no (unknown) (unknown) Radiologist's (units ( unknown) date) Impression: unknown) (unknown) (no (unknown) (unknown) Referrals: (units (unk nown) date) unknown) (unknown) (no (unknown) (unknown) Related Data (units (u nknown) date) unknown) (unknown) (no (unknown) (unknown) Respiratory Rate 15 (unit s (unknown) date) 07/12/22 14:01 unknown) (unknown) (no (unknown) (unknown) Respiratory Rate 15 (unit s (unknown) date) unknown) (unknown) (no (unknown) (unknown) Rx Instructions: (units (unknown) date) unknown) (unknown) (no (unknown) (unknown) Signed By: (units (unk nown) date) unknown) (unknown) (no (unknown) (unknown) Signed (units (unkno wn) date) unknown) (unknown) (no (unknown) (unknown) [facility] (units ( unknown) date) Hospital when to unknown) schedule his neck surgery.? Patient states left (unknown) (no (unknown) (unknown) [facility] (units ( unknown) date) Hospital.? Patient unknown) rates 8/10 chest pain at this time.? EKG and (unknown) (no (unknown) (unknown) Smoking Status: (units (unknown) date) Current every day unknown) smoker (unknown) (no (unknown) (unknown) Social History (units (unknown) date) (Reviewed 06/16/22 @ unknown) 21:00 by Flaco Brock MD) (unknown) (no (unknown) (unknown) Social determinants (unit s (unknown) date) of health that may unknown) impact treatment or disposition: (unknown) (no (unknown) (unknown) Soft tissues:? (units ( unknown) date) Overlying bowel gas unknown) pattern is normal.? No suspicious soft tissue (unknown) (no (unknown) (unknown) Source: patient (units (unknown) date) unknown) (unknown) (no (unknown) (unknown) Spinal stenosis of (units (unknown) date) lumbar region with unknown) neurogenic claudication (unknown) (no (unknown) (unknown) Spondylolisthesis (units (unknown) date) of lumbar region unknown) (unknown) (no (unknown) (unknown) Stable instrumented (unit s (unknown) date) L5-S1 discectomy and unknown) fusion (unknown) (no (unknown) (unknown) Stand Alone Forms: (units (unknown) date) Patient Portal/API unknown) (unknown) (no (unknown) (unknown) Stated complaint: (units (unknown) date) LT side pain from unknown) neck down to foot t-5 (unknown) (no (unknown) (unknown) Stenosis of artery (units (unknown) date) unknown) (unknown) (no (unknown) (unknown) Stop: 07/12/22 (units (unknown) date) 15:44 unknown) (unknown) (no (unknown) (unknown) Substance Use Type: (unit s (unknown) date) does not use unknown) (unknown) (no (unknown) (unknown) Surgical History (units (unknown) date) (Reviewed 06/17/22 @ unknown) 02:22 by Daniel Hector MD) (unknown) (no (unknown) (unknown) TECHNIQUE:? 3 views (unit s (unknown) date) of the lumbar spine unknown) were acquired.? 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 (units (unkno wn) date) unknown) (unknown) (no (unknown) (unknown) Vital Signs - 8 hr (units (unknown) date) unknown) (unknown) (no (unknown) (unknown) Vital Signs (units (un known) date) unknown) (unknown) (no (unknown) (unknown) Vital Signs: I, the (unit s (unknown) date) ED provider, unknown) reviewed the patient?s vital signs, past (unknown) (no (unknown) (unknown) Vital signs: (units (u nknown) date) unknown) (unknown) (no (unknown) (unknown) Vitamin D (units (unkn own) date) deficiency unknown) (unknown) (no (unknown) (unknown) XR lumbar spine (units (unknown) date) 2-3V Stat unknown) (unknown) (no (unknown) (unknown) XRay Report (units (un known) date) unknown) (unknown) (no (unknown) (unknown) [ ] New medication (units (unknown) date) written as a paper unknown) prescription (unknown) (no (unknown) (unknown) [ ] No new (units (unk nown) date) medications given unknown) (unknown) (no (unknown) (unknown) [x ] New medication (unit s (unknown) date) prescriptions sent unknown) to your pharmacy: [ [facility]] (unknown) (no (unknown) (unknown) alcohol intake (units (unknown) date) frequency: a few unknown) times a month (unknown) (no (unknown) (unknown) alcohol intake: (units (unknown) date) never unknown) (unknown) (no (unknown) (unknown) alignment.? No (units (unknown) date) unknown) (unknown) (no (unknown) (unknown) alprazolam 0.5 mg (units (unknown) date) tablet 0.5 mg PO unknown) BEDTIME PRN sleep #14 05/20/22 (unknown) (no (unknown) (unknown) alprazolam 0.5 mg (units (unknown) date) tablet unknown) (unknown) (no (unknown) (unknown) and 38 seconds, (units (unknown) date) achieved maximum unknown) heart rate of 167, which was 101 percent of (unknown) (no (unknown) (unknown) and plan for (units (u nknown) date) chronic pain unknown) regimen. Thank you for coming in for evaluation, I am (unknown) (no (unknown) (unknown) and specific details (unit s (unknown) date) were provided for unknown) the plan of care. Questions are addressed (unknown) (no (unknown) (unknown) and states that he (units (unknown) date) is seen Dr. Ma unknown) for cervical spine surgery next month (unknown) (no (unknown) (unknown) and there is (units (u nknown) date) agreement with the unknown) plan and for follow-up. Patient is appropriate (unknown) (no (unknown) (unknown) and water every 8 (units (unknown) date) hours as needed. You unknown) can take Percocet occasionally for (unknown) (no (unknown) (unknown) appointment. Let (units (unknown) date) them know you were unknown) seen in the Emergency Department and that we (unknown) (no (unknown) (unknown) arm discomfort is (units (unknown) date) new. unknown) (unknown) (no (unknown) (unknown) arrhythmias.? The (units (unknown) date) patient has resting, unknown) squeezing left-sided chest pain, which (unknown) (no (unknown) (unknown) asked that you be (units (unknown) date) seen for follow-up. unknown) We will electronically transmit a record (unknown) (no (unknown) (unknown) aspect over the (units (unknown) date) last 3 or 4 days.? unknown) Patient has a history of cervical (unknown) (no (unknown) (unknown) aspirin 81 mg (units ( unknown) date) tablet,delayed 81 mg unknown) PO DAILY 04/11/22 05/20/22 (unknown) (no (unknown) (unknown) aspirin 81 mg (units ( unknown) date) tablet,delayed unknown) release (DR/EC) (unknown) (no (unknown) (unknown) at L3-4 and L4-5, (units (unknown) date) similar to the prior unknown) exam. (unknown) (no (unknown) (unknown) atorvastatin 40 mg (units (unknown) date) tablet 40 mg PO unknown) BEDTIME #90 tabs 04/11/22 (unknown) (no (unknown) (unknown) atorvastatin 40 mg (units (unknown) date) tablet unknown) (unknown) (no (unknown) (unknown) baseline resting (units (unknown) date) left-sided, unknown) squeezing chest pain, which got mildly worse during (unknown) (no (unknown) (unknown) breakthrough pain, (units (unknown) date) continue on your unknown) gabapentin for the nerve pain. You (unknown) (no (unknown) (unknown) bupropion HCl 150 (units (unknown) date) mg 24 hr tablet, 150 unknown) mg PO BID #60 tabs 05/20/22 (unknown) (no (unknown) (unknown) bupropion HCl 150 (units (unknown) date) mg tablet extended unknown) release 24 hr (unknown) (no (unknown) (unknown) but does have (units ( unknown) date) dyspnea.? Patient unknown) had heart catheterization 3 or 5 years ago and (unknown) (no (unknown) (unknown) calcifications.? (units (unknown) date) unknown) (unknown) (no (unknown) (unknown) chest pain protocol (unit s (unknown) date) being done.? Patient unknown) originally came in for left-sided neck (unknown) (no (unknown) (unknown) chronic neck pain.? (unit s (unknown) date) Is going to hear unknown) back from ortho spine surgeon next week at (unknown) (no (unknown) (unknown) concerning (units (unk nown) date) symptoms, such as unknown) [fever greater than 101F, chills, worsening pain, (unknown) (no (unknown) (unknown) dd: 06/17/2022 (units (unknown) date) 12:47:00 dt: unknown) 06/17/2022 17:58:00 (unknown) (no (unknown) (unknown) discectomy and (units (unknown) date) unknown) (unknown) (no (unknown) (unknown) doc#: (units (unkno wn) date) [id number]/job#: [id number] unknown) (unknown) (no (unknown) (unknown) documentation, and (units (unknown) date) it accurately unknown) records my words and actions. I collaborated (unknown) (no (unknown) (unknown) droperidol (units (unk nown) date) [DROPERIDOL] Allergy unknown) Mild 'COGENIC Verified 07/12/22 14:01 (unknown) (no (unknown) (unknown) dysuria, (units (unkno wn) date) incontinence, or unknown) other weakness.? He denies any tenderness to his (unknown) (no (unknown) (unknown) establish care with [facility]unit s (unknown) [facility]. (unknown) (no (unknown) (unknown) exercise and (units (u nknown) date) returned back to the unknown) baseline in recovery.? Normal hemodynamic (unknown) (no (unknown) (unknown) extended release (units (unknown) date) unknown) (unknown) (no (unknown) (unknown) for further (units (un known) date) coronary artery unknown) disease diagnosis and risk stratification. (unknown) (no (unknown) (unknown) for outpatient (units (unknown) date) management. unknown) (unknown) (no (unknown) (unknown) fusion with (units (un known) date) posterior thomas and unknown) screw instrumentation good position.? No evidence (unknown) (no (unknown) (unknown) gabapentin 600 mg (units (unknown) date) tablet 600 mg PO TID unknown) #270 tabs 05/20/22 (unknown) (no (unknown) (unknown) gabapentin 600 mg (units (unknown) date) tablet unknown) (unknown) (no (unknown) (unknown) got slightly (units (u nknown) date) pronounced during unknown) exercise with quick recovery.? The patient has (unknown) (no (unknown) (unknown) hardware failure (units (unknown) date) loosening.? Mild unknown) disc space narrowing and sclerotic facet (unknown) (no (unknown) (unknown) he states there was (unit s (unknown) date) an error at unable unknown) to stand.? Does take blood pressure (unknown) (no (unknown) (unknown) household members: (units (unknown) date) family unknown) (unknown) (no (unknown) (unknown) inferolateral (units ( unknown) date) leads, likely part unknown) of repolarization changes.? During exercise, (unknown) (no (unknown) (unknown) joints noted (units (u nknown) date) unknown) (unknown) (no (unknown) (unknown) leave on most (units ( unknown) date) painful area for up unknown) to 12 hrs (unknown) (no (unknown) (unknown) lidocaine 5 % (units ( unknown) date) topical patch 2 unknown) patch topical DAILY #30 ea 07/12/22 (unknown) (no (unknown) (unknown) lidocaine (units (unkn own) date) [Lidoderm] 5 % unknown) adhesive patch,medicated (unknown) (no (unknown) (unknown) lumbar spine but (units (unknown) date) states he has a unknown) history of chronic low back pain. No nausea (unknown) (no (unknown) (unknown) lumbar xr: (units (unk nown) date) unknown) (unknown) (no (unknown) (unknown) medical records and (unit s (unknown) date) encounters if unknown) available, and nursing notes. I have spoken (unknown) (no (unknown) (unknown) medication (units (unk nown) date) cholesterol unknown) medication and does smoke.? Family history of valve (unknown) (no (unknown) (unknown) metoprolol tartrate (unit s (unknown) date) 25 mg tablet 25 mg unknown) PO BID #180 tabs 04/09/22 (unknown) (no (unknown) (unknown) metoprolol tartrate (unit s (unknown) date) 25 mg tablet unknown) (unknown) (no (unknown) (unknown) mg tablet (units (unkn own) date) (Percocet) unknown) (unknown) (no (unknown) (unknown) of today's note if (units (unknown) date) your PCP is in our unknown) system (unknown) (no (unknown) (unknown) of worsening nerve (units (unknown) date) like pain from his unknown) left hip to his left knee on lateral (unknown) (no (unknown) (unknown) of (units (unkno wn) date) unknown) (unknown) (no (unknown) (unknown) oxycodone-acetamino (unit s (unknown) date) phen 5 mg-325 1 tab unknown) PO Q8H PRN pain #10 tabs 07/12/22 (unknown) (no (unknown) (unknown) oxycodone-acetamino (unit s (unknown) date) phen [Percocet] unknown) 5-325 mg tablet (unknown) (no (unknown) (unknown) pain but did not (units (unknown) date) tell the triage unknown) nurse about the chest pain.? Patient does have (unknown) (no (unknown) (unknown) patient denies any (units (unknown) date) numbness or unknown) tingling, weakness, fever, chills, cough, (unknown) (no (unknown) (unknown) persistent vomiting (unit s (unknown) date) or other bothersome unknown) symptoms]. (unknown) (no (unknown) (unknown) prednisone 20 mg (units (unknown) date) tablet 20 mg PO unknown) DAILY 5 days #5 tabs 07/12/22 (unknown) (no (unknown) (unknown) prednisone 20 mg (units (unknown) date) tablet unknown) (unknown) (no (unknown) (unknown) primary care and has (unit s (unknown) date) a history of type 2 unknown) diabetes, hyperlipidemia, hypertension, (unknown) (no (unknown) (unknown) radiculopathy (units ( unknown) date) unknown) (unknown) (no (unknown) (unknown) radiculopathy, (units (unknown) date) chronic pain and unknown) chronic back pain.? He sees Dr. Mitchell for (unknown) (no (unknown) (unknown) release (units (unkno wn) date) unknown) (unknown) (no (unknown) (unknown) replacement in the (units (unknown) date) heart.? But no DE. unknown) heart catheterization was done over at (unknown) (no (unknown) (unknown) response.? No (units ( unknown) date) significant unknown) arrhythmias.? Consider repeating exercise stress test (unknown) (no (unknown) (unknown) sertraline 50 mg (units (unknown) date) tablet 50 mg PO unknown) DAILY #90 tabs 04/09/22 (unknown) (no (unknown) (unknown) sertraline 50 mg (units (unknown) date) tablet unknown) (unknown) (no (unknown) (unknown) something topical (units (unknown) date) as needed for pain. unknown) (unknown) (no (unknown) (unknown) sorry for your (units (unknown) date) pain. Please take unknown) ibuprofen 800 mg with Tylenol 975 mg with food (unknown) (no (unknown) (unknown) studies: (units (unkno wn) date) unknown) (unknown) (no (unknown) (unknown) supervision of an (units (unknown) date) attending staff.? unknown) She walked on Dar protocol for 8 minutes (unknown) (no (unknown) (unknown) tabs (units (unkno wn) date) unknown) (unknown) (no (unknown) (unknown) target heart rate.? (units (unknown) date) Baseline blood unknown) pressure 140/100 mmHg and peak blood pressure (unknown) (no (unknown) (unknown) the inherent (units (u nknown) date) limitations of this unknown) software. (unknown) (no (unknown) (unknown) the patient has up (units (unknown) date) to [address] unknown) depression in the inferolateral leads (unknown) (no (unknown) (unknown) underlying resting, (unit s (unknown) date) slight concave unknown) ST-depression in inferolateral leads, which (unknown) (no (unknown) (unknown) understanding. (units (unknown) date) Counseling was unknown) provided regarding the diagnosis and prognosis, (unknown) (no (unknown) (unknown) vertebral body (units (unknown) date) compression unknown) fractures.? No suspicious bony lesions.? L5-S1 (unknown) (no (unknown) (unknown) was on a scale of 1 (unit s (unknown) date) to 10, 2 in unknown) intensity.? During exercise, it became worse to (unknown) (no (unknown) (unknown) with Dr. Mitchell (units (unknown) date) regarding unknown) prescription medications, possible steroid injections, (unknown) (no (unknown) (unknown) with imaging (units (u nknown) date) modality, like a unknown) nuclear perfusion study or exercise stress echo (unknown) (no (unknown) (unknown) with quick recovery (unit s (unknown) date) within 30 seconds to unknown) the baseline.? No significant (unknown) (no (unknown) (unknown) with the ED (units (un known) date) attending physician unknown) for BARB level 2, 3, and some level 4s as needed (unknown) (no (unknown) (unknown) with the (units (unkno wn) date) patient/family and unknown) discussed today?s findings whom verbalize Result panel 609 (unknown) (no (unknown) (unknown) (no value) (units (unk nown) date) unknown) (unknown) (no (unknown) (unknown) 'COGENIC (units (unkno wn) date) REACTION' unknown) (unknown) (no (unknown) (unknown) 07/12/22 1842 (units ( unknown) date) unknown) (unknown) (no (unknown) (unknown) 06/16/22 (units (unkno wn) date) unknown) (unknown) (no (unknown) (unknown) 01/12. Patient (units ( unknown) date) states that he unknown) checked into the ED earlier due to his level of (unknown) (no (unknown) (unknown) : [id number] (units (u nknown) date) unknown) (unknown) (no (unknown) (unknown) Age/Sex: 52 / M (units (unknown) date) Date of Service: unknown) (unknown) (no (unknown) (unknown) Allergies (units (unkn own) date) unknown) (unknown) (no (unknown) (unknown) [facility] (units (unknown) date) Medicine unknown) (unknown) (no (unknown) (unknown) [place], [place] (units ( unknown) date) [id number] unknown) (unknown) (no (unknown) (unknown) Attending Dr: (units ( unknown) date) Angélica Vega unknown) LEATHA (unknown) (no (unknown) (unknown) : 1970 (units (unknown) date) Acct:[id number] unknown) (unknown) (no (unknown) (unknown) Dept at (units (unkno wn) date) . unknown) (unknown) (no (unknown) (unknown) Documented By: (units (unknown) date) Angélica Vega unknown) LEATHA 06/16/22 1907 (unknown) (no (unknown) (unknown) Intake Note: (units (u nknown) date) unknown) (unknown) (no (unknown) (unknown) Intake performed (units (unknown) date) by: Andree Davison unknown) (unknown) (no (unknown) (unknown) Intake (units (unkno wn) date) unknown) (unknown) (no (unknown) (unknown) Intake- Clincial (units (unknown) date) Staff unknown) (unknown) (no (unknown) (unknown) Loc: [facility] (units (unkno wn) date) unknown) (unknown) (no (unknown) (unknown) Nurse Office (units (u nknown) date) Visit unknown) (unknown) (no (unknown) (unknown) Patient presents (units (unknown) date) to [facility] with unknown) concerns for neck and left arm pain. Patient denies (unknown) (no (unknown) (unknown) Patient: (units (unknown) date) Anthony MCDUFFIE MR# unknown) (unknown) (no (unknown) (unknown) Reason For Visit (units (unknown) date) unknown) (unknown) (no (unknown) (unknown) Signed By: (units (unk nown) date) <Electronically unknown) signed by Angélica Vega> (unknown) (no (unknown) (unknown) Signed (units (unkno wn) date) unknown) (unknown) (no (unknown) (unknown) Smoking Status: (units (unknown) date) Current every day unknown) smoker (unknown) (no (unknown) (unknown) This note may (units ( unknown) date) have been all or unknown) partially generated using voice recognition (unknown) (no (unknown) (unknown) Tobacco Status (units (unknown) date) unknown) (unknown) (no (unknown) (unknown) Visit Reasons: (units (unknown) date) neck and shoulder unknown) pain (unknown) (no (unknown) (unknown) any injury, (units (un known) date) reports hx of unknown) degenerative disc disease in his cervical spine and (unknown) (no (unknown) (unknown) arm pain in the (units (unknown) date) past, and unknown) describes the sensation in his left arm as 'bad pain' (unknown) (no (unknown) (unknown) droperidol (units (unk nown) date) [DROPERIDOL] unknown) Allergy (Mild, Verified 06/16/22 16:12) (unknown) (no (unknown) (unknown) during the (units (unk nown) date) clinic hours unknown) today, and that results would not be received until (unknown) (no (unknown) (unknown) have occurred. (units (unknown) date) If there are any unknown) questions, please contact the Medical Records (unknown) (no (unknown) (unknown) may occur. (units (unk nown) date) Occasional unknown) wrong-word or 'sound-alike' substitutions may have (unknown) (no (unknown) (unknown) occurred due to (units (unknown) date) the inherent unknown) limitations of voice recognition software. Please (unknown) (no (unknown) (unknown) pain, and new (units ( unknown) date) symptoms. He unknown) states that he was concerned 'the pain might be (unknown) (no (unknown) (unknown) patient (units (unkno wn) date) regarding scope unknown) of practice for the [facility], imaging that can be ordered (unknown) (no (unknown) (unknown) read the note (units ( unknown) date) carefully and unknown) recognize, using context, where these substitutions (unknown) (no (unknown) (unknown) software. 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 He states he came to (unknown) (no (unknown) (unknown) states that he (units (unknown) date) has an upcoming unknown) surgery planned. He denies any episodes of left (unknown) (no (unknown) (unknown) the [facility] after (units ( unknown) date) being told the unknown) wait time in the ED. Nurse provided education to (unknown) (no (unknown) (unknown) through our (units (un known) date) clinic, and the unknown) time frame in which those results could be read (unknown) (no (unknown) (unknown) to the ED. (units (unk nown) date) unknown) (unknown) (no (unknown) (unknown) tomorrow morning (units (unknown) date) based on his unknown) check in time. Patient stated that he would return Result panel 610 (unknown) (no (unknown) (unknown) (no value) (units (unk nown) date) unknown) (unknown) (no (unknown) (unknown) <Electronically (units (unknown) date) signed by Michelle Dupont unknown) [facility] Crew> (unknown) (no (unknown) (unknown) (Lidoderm) (units (unk nown) date) unknown) (unknown) (no (unknown) (unknown) *If you do not have (unit s (unknown) date) a primary care unknown) provider please contact [phone] to (unknown) (no (unknown) (unknown) *Please continue to (unit s (unknown) date) take your regular unknown) medications as directed. (unknown) (no (unknown) (unknown) *Please follow up (units (unknown) date) with your primary unknown) care provider in 2-3 days, call for an (unknown) (no (unknown) (unknown) *Return to (units (unk nown) date) Emergency Department unknown) if you should have any new, worsening, or (unknown) (no (unknown) (unknown) *What to do: (units (u nknown) date) unknown) (unknown) (no (unknown) (unknown) *You have been (units ( unknown) date) diagnosed with unknown) [cervical radiculopathy and lumbar radiculopathy.] (unknown) (no (unknown) (unknown) 0.5 mg PO BEDTIME (units (unknown) date) PRN (Reason: sleep) unknown) Qty: 14 0RF (unknown) (no (unknown) (unknown) 07/12/22 15:38 (units (unknown) date) unknown) (unknown) (no (unknown) (unknown) 07/12/22 1642 (units ( unknown) date) unknown) (unknown) (no (unknown) (unknown) 07/12/22 (units (unkno wn) date) unknown) (unknown) (no (unknown) (unknown) 1 tab PO Q8H PRN (units (unknown) date) (Reason: pain) Qty: unknown) 10 0RF (unknown) (no (unknown) (unknown) 06/16/2022 with (units (unknown) date) atypical chest pain unknown) was admitted to the hospital at that time he (unknown) (no (unknown) (unknown) [address] (units (unknown) date) unknown) (unknown) (no (unknown) (unknown) 14:01 07/12/22 (units (unknown) date) unknown) (unknown) (no (unknown) (unknown) 150 mg PO BID Qty: (units (unknown) date) 60 0RF unknown) (unknown) (no (unknown) (unknown) 160/88 mmHg.? (units ( unknown) date) Baseline rhythm was unknown) sinus with slight concave ST-depression in (unknown) (no (unknown) (unknown) 16:50 (units (unkno wn) date) unknown) (unknown) (no (unknown) (unknown) 2 patch topical (units (unknown) date) DAILY Qty: 30 0RF unknown) (unknown) (no (unknown) (unknown) 20 mg PO DAILY 5 (units (unknown) date) Days Qty: 5 0RF unknown) (unknown) (no (unknown) (unknown) 211-1 (units (unkno wn) date) unknown) (unknown) (no (unknown) (unknown) 25 mg PO BID Qty: (units (unknown) date) 180 3RF unknown) (unknown) (no (unknown) (unknown) 40 mg PO BEDTIME (units (unknown) date) Qty: 90 3RF unknown) (unknown) (no (unknown) (unknown) 5 and spread to the (unit s (unknown) date) entire chest and unknown) returned back to the baseline in recovery. (unknown) (no (unknown) (unknown) 50 mg PO DAILY Qty: (unit s (unknown) date) 90 3RF unknown) (unknown) (no (unknown) (unknown) 600 mg PO TID Qty: (units (unknown) date) 270 3RF unknown) (unknown) (no (unknown) (unknown) 81 mg PO DAILY (units (unknown) date) unknown) (unknown) (no (unknown) (unknown) : [id number] (units (u nknown) date) unknown) (unknown) (no (unknown) (unknown) ? (units (unkno wn) date) unknown) (unknown) (no (unknown) (unknown) ADD (attention (units (unknown) date) deficit disorder) unknown) (unknown) (no (unknown) (unknown) [facility] MD (units (unknown) date) [Primary Care unknown) Provider] (unknown) (no (unknown) (unknown) Accession Number: (units (unknown) date) [id number] ?? unknown) (unknown) (no (unknown) (unknown) Accession Number: (units (unknown) date) [id number] ?? unknown) (unknown) (no (unknown) (unknown) Acct:[id number] (units (unknown) date) unknown) (unknown) (no (unknown) (unknown) Acct:[id number] (units (unknown) date) unknown) (unknown) (no (unknown) (unknown) Activity (units (unkno wn) date) Restrictions/Additio unknown) nal Instructions: (unknown) (no (unknown) (unknown) Age/Sex: 52 / M (units (unknown) date) unknown) (unknown) (no (unknown) (unknown) Allergies (units (unkn own) date) unknown) (unknown) (no (unknown) (unknown) Allergy/AdvReac (units (unknown) date) Type Severity unknown) Reaction Status Date / Time (unknown) (no (unknown) (unknown) JEFFREY Don [id number] (unit s (unknown) date) unknown) (unknown) (no (unknown) (unknown) Approved by: Celso (units (unknown) date) Alex Barahona on unknown) 07/12/2022 at 15:24? (unknown) (no (unknown) (unknown) Asthma (units (unkno wn) date) unknown) (unknown) (no (unknown) (unknown) Blood Pressure (units (unknown) date) 176/93 H 07/12/22 unknown) 14:01 (unknown) (no (unknown) (unknown) Blood Pressure (units (unknown) date) 176/93 H 136/83 unknown) (unknown) (no (unknown) (unknown) Bones:? 5 (units (unkn own) date) [id number] unknown) vertebrae are present.? There is normal bony (unknown) (no (unknown) (unknown) CARDIAC STRESS:? (units (unknown) date) The patient unknown) underwent exercise stress test under the (unknown) (no (unknown) (unknown) COMPARISON:? [facility] (unit s (unknown) date) [facility], , XR unknown) LUMBAR SPINE 2-3V, 06/13/2021, 13:37. (unknown) (no (unknown) (unknown) CONCLUSION:? (units (un known) date) Exercise stress test unknown) inconclusive for inducible ischemia in view of (unknown) (no (unknown) (unknown) COPIES MNE: PALV; (units (unknown) date) unknown) (unknown) (no (unknown) (unknown) CT - cervical (units ( unknown) date) spine: unknown) (unknown) (no (unknown) (unknown) CT cervical spine (units (unknown) date) from 06/16/2022 unknown) without new traumatic injury or new (unknown) (no (unknown) (unknown) Cervical radicular (units (unknown) date) pain, Lumbar unknown) radiculopathy (unknown) (no (unknown) (unknown) Cervical (units (unkno wn) date) radiculopathy due to unknown) osteoarthritis of spine (unknown) (no (unknown) (unknown) Chief complaint: (units (unknown) date) Extremity unknown) Problem,Nontraumatic (unknown) (no (unknown) (unknown) Clinical (units (unkno wn) date) Impression: unknown) (unknown) (no (unknown) (unknown) Copy of cardiac (units (unknown) date) stress test from unknown) 06/17/2022 (unknown) (no (unknown) (unknown) Coronary artery (units (unknown) date) disease unknown) (unknown) (no (unknown) (unknown) Course of care: Saw (unit s (unknown) date) the patient when he unknown) is brought back to a room, he endorses (unknown) (no (unknown) (unknown) Course (units (unkno wn) date) unknown) (unknown) (no (unknown) (unknown) DATE OF SERVICE:? (units (unknown) date) 06/17/2022 unknown) (unknown) (no (unknown) (unknown) DICTATING MD/COPIES (unit s (unknown) date) TO: Vicente Mccoy, unknown) MD (unknown) (no (unknown) (unknown) : 1970 (units (unknown) date) Acct:[id number] unknown) (unknown) (no (unknown) (unknown) : 1970 (units (unknown) date) unknown) (unknown) (no (unknown) (unknown) Date of Service: (units (unknown) date) 07/12/22 unknown) (unknown) (no (unknown) (unknown) Date of Service: (units (unknown) date) 06/16/22 unknown) (unknown) (no (unknown) (unknown) Departure (units (unkn own) date) unknown) (unknown) (no (unknown) (unknown) Depression (units (unk nown) date) unknown) (unknown) (no (unknown) (unknown) Discharge Plan (units (unknown) date) unknown) (unknown) (no (unknown) (unknown) Discontinued (units (u nknown) date) Medications unknown) (unknown) (no (unknown) (unknown) Discussed the (units ( unknown) date) findings with the unknown) hospitalist team. (unknown) (no (unknown) (unknown) Documented By: KB (units (unknown) date) unknown) (unknown) (no (unknown) (unknown) ED Orders (units (unkn own) date) unknown) (unknown) (no (unknown) (unknown) ER Physician: (units ( unknown) date) Michelle Wilson unknown) (unknown) (no (unknown) (unknown) Electronically (units (unknown) date) signed by: Michelle unknown) LEATHA Wilson (unknown) (no (unknown) (unknown) Emergency Report (units (unknown) date) unknown) (unknown) (no (unknown) (unknown) Essential (units (unkn own) date) hypertension unknown) (unknown) (no (unknown) (unknown) Exam (units (unkno wn) date) unknown) (unknown) (no (unknown) (unknown) FINDINGS:? (units (unk nown) date) unknown) (unknown) (no (unknown) (unknown) Family History (units (unknown) date) (Reviewed 06/17/22 @ unknown) 02:22 by Daniel Hector MD) (unknown) (no (unknown) (unknown) Father Hypertension (unit s (unknown) date) unknown) (unknown) (no (unknown) (unknown) General (units (unkno wn) date) unknown) (unknown) (no (unknown) (unknown) Generalized anxiety (unit s (unknown) date) disorder with panic unknown) attacks (unknown) (no (unknown) (unknown) HPI - Extremity (units (unknown) date) Problem unknown) (unknown) (no (unknown) (unknown) HPI Narrative: (units (unknown) date) unknown) (unknown) (no (unknown) (unknown) Herniated (units (unkn own) date) intervertebral disc unknown) of lumbar spine (unknown) (no (unknown) (unknown) History of Present (units (unknown) date) Illness unknown) (unknown) (no (unknown) (unknown) Home Medications (units (unknown) date) unknown) (unknown) (no (unknown) (unknown) Hx of cervical (units (unknown) date) discectomy (-2013) unknown) (unknown) (no (unknown) (unknown) Hyperlipidemia (units (unknown) date) unknown) (unknown) (no (unknown) (unknown) Hypertension (units (u nknown) date) unknown) (unknown) (no (unknown) (unknown) I performed a (units ( unknown) date) preliminary unknown) independent interpretation of the following imaging (unknown) (no (unknown) (unknown) I, Michelle Wilson, (units (unknown) date) LEATHA, personally unknown) performed the services described in the (unknown) (no (unknown) (unknown) IMPRESSION:? (units (u nknown) date) unknown) (unknown) (no (unknown) (unknown) INDICATION:? Chest (units (unknown) date) pain, left arm pain, unknown) underlying CAD, hypertension (unknown) (no (unknown) (unknown) INDICATIONS:? (units ( unknown) date) worsening sciatica unknown) (unknown) (no (unknown) (unknown) Imaging Data (units (u nknown) date) unknown) (unknown) (no (unknown) (unknown) Initial Vital Signs (unit s (unknown) date) unknown) (unknown) (no (unknown) (unknown) Initial Vital (units ( unknown) date) Signs: unknown) (unknown) (no (unknown) (unknown) Instructions: (units ( unknown) date) Chronic Neck Pain, unknown) DI for Cervical Radiculopathy, Lumbar (unknown) (no (unknown) (unknown) [facility] (units (unknown) date) [address] unknown) [place] [address] (unknown) (no (unknown) (unknown) [facility] (units (unknown) date) unknown) (unknown) (no (unknown) (unknown) Last Admin: (units (un known) date) 07/12/22 15:58 Dose: unknown) 2 each (unknown) (no (unknown) (unknown) Last Admin: (units (un known) date) 07/12/22 15:58 Dose: unknown) 2 tab (unknown) (no (unknown) (unknown) Last Admin: (units (un known) date) 07/12/22 15:58 Dose: unknown) 40 mg (unknown) (no (unknown) (unknown) Last Admin: (units (un known) date) 07/12/22 16:19 Dose: unknown) 750 mg (unknown) (no (unknown) (unknown) Lidocaine (units (unkn own) date) (Lidocaine Patch 1 unknown) Each Adh..Patch) 2 each TOP NOW ONE (unknown) (no (unknown) (unknown) Loc: [facility] (units (unkno wn) date) unknown) (unknown) (no (unknown) (unknown) Loc: ED (units (unkno wn) date) unknown) (unknown) (no (unknown) (unknown) Lower lumbar spine (units (unknown) date) degenerative disc unknown) disease and arthropathy, unchanged (unknown) (no (unknown) (unknown) MDM - Extremity (units (unknown) date) (Nontraumatic) unknown) (unknown) (no (unknown) (unknown) MDM Narrative (units ( unknown) date) unknown) (unknown) (no (unknown) (unknown) MIPS: This (units (unk nown) date) encounter doesn't unknown) have any diagnosis associated with MIPS criteria. (unknown) (no (unknown) (unknown) MR#: [id number] (units (unknown) date) unknown) (unknown) (no (unknown) (unknown) [facility] [place] (unit s (unknown) date) - unknown) (unknown) (no (unknown) (unknown) Medical History (units (unknown) date) (Reviewed 06/17/22 @ unknown) 02:22 by Daniel Hector MD) (unknown) (no (unknown) (unknown) Medical Records (units (unknown) date) unknown) (unknown) (no (unknown) (unknown) Medical decision (units (unknown) date) making narrative: unknown) (unknown) (no (unknown) (unknown) Medical records (units (unknown) date) narrative: unknown) (unknown) (no (unknown) (unknown) Medication (units (unk nown) date) Instructions unknown) Recorded Confirmed (unknown) (no (unknown) (unknown) Medication (units (unk nown) date) Instructions unknown) Recorded (unknown) (no (unknown) (unknown) Methocarbamol (units ( unknown) date) (Methocarbamol 500 unknown) Mg Tablet) 750 mg PO NOW ONE (unknown) (no (unknown) (unknown) Mode of arrival: (units (unknown) date) Ambulatory unknown) (unknown) (no (unknown) (unknown) Morning for his (units (unknown) date) orthopedic issues unknown) and is is presenting to the ED via POV with a (unknown) (no (unknown) (unknown) Mother Diabetes (units (unknown) date) mellitus unknown) (unknown) (no (unknown) (unknown) Flaco Ma MD (units (unknown) date) [Physician] - 5-7 unknown) days (unknown) (no (unknown) (unknown) My Impression: (units (unknown) date) unknown) (unknown) (no (unknown) (unknown) New (units (unkno wn) date) unknown) (unknown) (no (unknown) (unknown) No Action (units (unkn own) date) unknown) (unknown) (no (unknown) (unknown) No significant (units (unknown) date) arrhythmias seen. unknown) (unknown) (no (unknown) (unknown) Nuclear Medicine (units (unknown) date) Report unknown) (unknown) (no (unknown) (unknown) Occasional wrong (units (unknown) date) word or 'sound unknown) alike' substitutions may have occurred due to (unknown) (no (unknown) (unknown) On Thursday, please (units (unknown) date) call Dr. Dickerson and unknown) discuss follow-up, please touch base (unknown) (no (unknown) (unknown) Opiate addiction (units (unknown) date) unknown) (unknown) (no (unknown) (unknown) Ordered: (units (unkno wn) date) unknown) (unknown) (no (unknown) (unknown) Ordering Provider: (units (unknown) date) Daniel Hector MD unknown) (unknown) (no (unknown) (unknown) Ordering Provider: (units (unknown) date) KellywMichelle unknown) (unknown) (no (unknown) (unknown) Orders (units (unkno wn) date) unknown) (unknown) (no (unknown) (unknown) Oxycodone/Acetamino (unit s (unknown) date) phen unknown) (Oxycodone/Acetamino phen 5/325 Tablet) 2 tab PO NOW ONE (unknown) (no (unknown) (unknown) Oxygen Delivery (units (unknown) date) Method 07/12/22 unknown) 14:01 (unknown) (no (unknown) (unknown) Oxygen Delivery (units (unknown) date) Method Room Air Room unknown) Air (unknown) (no (unknown) (unknown) PROCEDURE:? (units (un known) date) Exercise stress unknown) test. (unknown) (no (unknown) (unknown) PROCEDURE:? 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 (unknown) (no (unknown) (unknown) Patient: Celeste (units (unknown) date) Anthony MCDUFFIE MR# unknown) (unknown) (no (unknown) (unknown) Patient: Celeste (units (unknown) date) IIAnthony unknown) (unknown) (no (unknown) (unknown) Peripheral (units (unk nown) date) neuropathy unknown) (unknown) (no (unknown) (unknown) Portions of this (units (unknown) date) chart have been unknown) created with [employer] voice recognition software. (unknown) (no (unknown) (unknown) Prednisone (units (unk nown) date) (Prednisone 20 Mg unknown) Tablet) 40 mg PO NOW ONE (unknown) (no (unknown) (unknown) Prescriptions: (units (unknown) date) unknown) (unknown) (no (unknown) (unknown) Previous Rx's (units ( unknown) date) unknown) (unknown) (no (unknown) (unknown) Procedure: Exercise (unit s (unknown) date) treadmill NON NUC unknown) (unknown) (no (unknown) (unknown) Procedure: XR (units ( unknown) date) lumbar spine 2-3V unknown) (unknown) (no (unknown) (unknown) Pt is nontoxic (units ( unknown) date) appearing. Patient unknown) has soft tissue tenderness to palpation. Pt is (unknown) (no (unknown) (unknown) Pulse Oximetry 97 (units (unknown) date) 07/12/22 14:01 unknown) (unknown) (no (unknown) (unknown) Pulse Oximetry 97 (units (unknown) date) 97 unknown) (unknown) (no (unknown) (unknown) Pulse Rate 93 H (units (unknown) date) 07/12/22 14:01 unknown) (unknown) (no (unknown) (unknown) Pulse Rate 93 H 86 (units (unknown) date) unknown) (unknown) (no (unknown) (unknown) REACTION' (units (unkn own) date) unknown) (unknown) (no (unknown) (unknown) RLS (restless legs (units (unknown) date) syndrome) unknown) (unknown) (no (unknown) (unknown) Radiculopathy (units ( unknown) date) unknown) (unknown) (no (unknown) (unknown) Radiologist's (units ( unknown) date) Impression: unknown) (unknown) (no (unknown) (unknown) Referrals: (units (unk nown) date) unknown) (unknown) (no (unknown) (unknown) Related Data (units (u nknown) date) unknown) (unknown) (no (unknown) (unknown) Respiratory Rate 15 (unit s (unknown) date) 07/12/22 14:01 unknown) (unknown) (no (unknown) (unknown) Respiratory Rate 15 (unit s (unknown) date) unknown) (unknown) (no (unknown) (unknown) Rx Instructions: (units (unknown) date) unknown) (unknown) (no (unknown) (unknown) Signed By: (units (unk nown) date) unknown) (unknown) (no (unknown) (unknown) Signed (units (unkno wn) date) unknown) (unknown) (no (unknown) (unknown) [facility] (units ( unknown) date) Hospital when to unknown) schedule his neck surgery.? Patient states left (unknown) (no (unknown) (unknown) [facility] (units ( unknown) date) [facility].? Patient unknown) rates 8/10 chest pain at this time.? EKG and (unknown) (no (unknown) (unknown) Smoking Status: (units (unknown) date) Current every day unknown) smoker (unknown) (no (unknown) (unknown) Social History (units (unknown) date) (Reviewed 06/16/22 @ unknown) 21:00 by Flaco Brock MD) (unknown) (no (unknown) (unknown) Social determinants (unit s (unknown) date) of health that may unknown) impact treatment or disposition: (unknown) (no (unknown) (unknown) Soft tissues:? (units ( unknown) date) Overlying bowel gas unknown) pattern is normal.? No suspicious soft tissue (unknown) (no (unknown) (unknown) Source: patient (units (unknown) date) unknown) (unknown) (no (unknown) (unknown) Spinal stenosis of (units (unknown) date) lumbar region with unknown) neurogenic claudication (unknown) (no (unknown) (unknown) Spondylolisthesis (units (unknown) date) of lumbar region unknown) (unknown) (no (unknown) (unknown) Stable instrumented (unit s (unknown) date) L5-S1 discectomy and unknown) fusion (unknown) (no (unknown) (unknown) Stand Alone Forms: (units (unknown) date) Patient Portal/API unknown) (unknown) (no (unknown) (unknown) Stated complaint: (units (unknown) date) LT side pain from unknown) neck down to foot t-5 (unknown) (no (unknown) (unknown) Stenosis of artery (units (unknown) date) unknown) (unknown) (no (unknown) (unknown) Stop: 07/12/22 (units (unknown) date) 15:44 unknown) (unknown) (no (unknown) (unknown) Substance Use Type: (unit s (unknown) date) does not use unknown) (unknown) (no (unknown) (unknown) Surgical History (units (unknown) date) (Reviewed 06/17/22 @ unknown) 02:22 by Daniel Hector MD) (unknown) (no (unknown) (unknown) TECHNIQUE:? 3 views (unit s (unknown) date) of the lumbar spine unknown) were acquired.? (unknown) (no (unknown) (unknown) Temperature 98.4 F (units (unknown) date) 07/12/22 14:01 unknown) (unknown) (no (unknown) (unknown) Temperature 98.4 F (units (unknown) date) unknown) (unknown) (no (unknown) (unknown) This is a (units (unkno wn) date) 52-year-old unknown) gentleman presents to the emergency department complaining (unknown) (no (unknown) (unknown) This is a (units (unkn own) date) 52-year-old male unknown) with history of cervical radiculopathy, chronic neck (unknown) (no (unknown) (unknown) Time Seen by (units (u nknown) date) Provider: 07/12/22 unknown) 15:37 (unknown) (no (unknown) (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) 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 (units (unkno wn) date) unknown) (unknown) (no (unknown) (unknown) Vital Signs - 8 hr (units (unknown) date) unknown) (unknown) (no (unknown) (unknown) Vital Signs (units (un known) date) unknown) (unknown) (no (unknown) (unknown) Vital Signs: I, the (unit s (unknown) date) ED provider, unknown) reviewed the patient?s vital signs, past (unknown) (no (unknown) (unknown) Vital signs: (units (u nknown) date) unknown) (unknown) (no (unknown) (unknown) Vitamin D (units (unkn own) date) deficiency unknown) (unknown) (no (unknown) (unknown) XR lumbar spine (units (unknown) date) 2-3V Stat unknown) (unknown) (no (unknown) (unknown) XRay Report (units (un known) date) unknown) (unknown) (no (unknown) (unknown) [ ] New medication (units (unknown) date) written as a paper unknown) prescription (unknown) (no (unknown) (unknown) [ ] No new (units (unk nown) date) medications given unknown) (unknown) (no (unknown) (unknown) [x ] New medication (unit s (unknown) date) prescriptions sent unknown) to your pharmacy: [ [facility] [place]] (unknown) (no (unknown) (unknown) alcohol intake (units (unknown) date) frequency: a few unknown) times a month (unknown) (no (unknown) (unknown) alcohol intake: (units (unknown) date) never unknown) (unknown) (no (unknown) (unknown) alignment.? No (units (unknown) date) unknown) (unknown) (no (unknown) (unknown) alprazolam 0.5 mg (units (unknown) date) tablet 0.5 mg PO unknown) BEDTIME PRN sleep #14 05/20/22 (unknown) (no (unknown) (unknown) alprazolam 0.5 mg (units (unknown) date) tablet unknown) (unknown) (no (unknown) (unknown) and 38 seconds, (units (unknown) date) achieved maximum unknown) heart rate of 167, which was 101 percent of (unknown) (no (unknown) (unknown) and plan for (units (u nknown) date) chronic pain unknown) regimen. Thank you for coming in for evaluation, I am (unknown) (no (unknown) (unknown) and return for (units ( unknown) date) severe symptoms of unknown) weakness, incontinence, paresthesia his groin, (unknown) (no (unknown) (unknown) and right leg which (unit s (unknown) date) exacerbates his unknown) sciatica and leg pain. He is nontender over (unknown) (no (unknown) (unknown) and specific details (unit s (unknown) date) were provided for unknown) the plan of care. Questions are addressed (unknown) (no (unknown) (unknown) and states that he (units (unknown) date) is seen Dr. Ma unknown) for cervical spine surgery next month (unknown) (no (unknown) (unknown) and there is (units (u nknown) date) agreement with the unknown) plan and for follow-up. Patient is appropriate (unknown) (no (unknown) (unknown) and water every 8 (units (unknown) date) hours as needed. You unknown) can take Percocet occasionally for (unknown) (no (unknown) (unknown) appointment. Let (units (unknown) date) them know you were unknown) seen in the Emergency Department and that we (unknown) (no (unknown) (unknown) arm discomfort is (units (unknown) date) new. unknown) (unknown) (no (unknown) (unknown) arrhythmias.? The (units (unknown) date) patient has resting, unknown) squeezing left-sided chest pain, which (unknown) (no (unknown) (unknown) asked that you be (units (unknown) date) seen for follow-up. unknown) We will electronically transmit a record (unknown) (no (unknown) (unknown) aspect over the (units (unknown) date) last 3 or 4 days.? unknown) Patient has a history of cervical (unknown) (no (unknown) (unknown) aspirin 81 mg (units ( unknown) date) tablet,delayed 81 mg unknown) PO DAILY 04/11/22 05/20/22 (unknown) (no (unknown) (unknown) aspirin 81 mg (units ( unknown) date) tablet,delayed unknown) release (DR/EC) (unknown) (no (unknown) (unknown) at L3-4 and L4-5, (units (unknown) date) similar to the prior unknown) exam. (unknown) (no (unknown) (unknown) atorvastatin 40 mg (units (unknown) date) tablet 40 mg PO unknown) BEDTIME #90 tabs 04/11/22 (unknown) (no (unknown) (unknown) atorvastatin 40 mg (units (unknown) date) tablet unknown) (unknown) (no (unknown) (unknown) baseline resting (units (unknown) date) left-sided, unknown) squeezing chest pain, which got mildly worse during (unknown) (no (unknown) (unknown) breakthrough pain, (units (unknown) date) continue on your unknown) gabapentin for the nerve pain. Use (unknown) (no (unknown) (unknown) bupropion HCl 150 (units (unknown) date) mg 24 hr tablet, 150 unknown) mg PO BID #60 tabs 05/20/22 (unknown) (no (unknown) (unknown) bupropion HCl 150 (units (unknown) date) mg tablet extended unknown) release 24 hr (unknown) (no (unknown) (unknown) but does have (units ( unknown) date) dyspnea.? Patient unknown) had heart catheterization 3 or 5 years ago and (unknown) (no (unknown) (unknown) calcifications.? (units (unknown) date) unknown) (unknown) (no (unknown) (unknown) cervical spine CT is (unit s (unknown) date) appended above as unknown) well as his lumbar x-ray from today which (unknown) (no (unknown) (unknown) chest pain protocol (unit s (unknown) date) being done.? Patient unknown) originally came in for left-sided neck (unknown) (no (unknown) (unknown) chronic neck pain.? (unit s (unknown) date) Is going to hear unknown) back from ortho spine surgeon next week at (unknown) (no (unknown) (unknown) chronic pain, (units ( unknown) date) osteoarthritis, unknown) epidural metastases, herpes zoster and critical (unknown) (no (unknown) (unknown) concerning (units (unk nown) date) symptoms, such as unknown) [fever greater than 101F, chills, worsening pain, (unknown) (no (unknown) (unknown) cord compression. (units (unknown) date) unknown) (unknown) (no (unknown) (unknown) dd: 06/17/2022 (units (unknown) date) 12:47:00 dt: unknown) 06/17/2022 17:58:00 (unknown) (no (unknown) (unknown) degenerative disc (units (unknown) date) disease and unknown) arthropathy, unchanged from prior x-rays. Patient (unknown) (no (unknown) (unknown) discectomy and (units (unknown) date) unknown) (unknown) (no (unknown) (unknown) doc#: (units (unkno wn) date) [id number]/job#: [id number] unknown) (unknown) (no (unknown) (unknown) documentation, and (units (unknown) date) it accurately unknown) records my words and actions. 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 He denies any tenderness to his (unknown) (no (unknown) (unknown) emergency (units (unkn own) date) department on unknown) 05/30/2022 and he is prescribed a short course of (unknown) (no (unknown) (unknown) encouraged him to (units (unknown) date) follow-up Thursday unknown) morning and follow-up with Dr. Teran for (unknown) (no (unknown) (unknown) episodes. He is (units (unknown) date) without weakness, unknown) numbness, tingling, is able to lift his left (unknown) (no (unknown) (unknown) establish care with (unit s (unknown) date[facility]. (unknown) (no (unknown) (unknown) evidence of (units (un known) date) infection, unknown) peritoneal signs, hypertensive crisis, incontinence, or (unknown) (no (unknown) (unknown) exercise and (units (u nknown) date) returned back to the unknown) baseline in recovery.? Normal hemodynamic (unknown) (no (unknown) (unknown) extended release (units (unknown) date) unknown) (unknown) (no (unknown) (unknown) fever, chills or (units (unknown) date) new problem. unknown) (unknown) (no (unknown) (unknown) for further (units (un known) date) coronary artery unknown) disease diagnosis and risk stratification. (unknown) (no (unknown) (unknown) for outpatient (units (unknown) date) management. unknown) (unknown) (no (unknown) (unknown) fracture, (no (units ( unknown) date) trauma, no bony unknown) tenderness to palpation), cauda equina (no bowel (unknown) (no (unknown) (unknown) further pain (units (u nknown) date) control as he has unknown) presented to the emergency department numerous (unknown) (no (unknown) (unknown) fusion with (units (un known) date) posterior thomas and unknown) screw instrumentation good position.? No evidence (unknown) (no (unknown) (unknown) gabapentin 600 mg (units (unknown) date) tablet 600 mg PO TID unknown) #270 tabs 05/20/22 (unknown) (no (unknown) (unknown) gabapentin 600 mg (units (unknown) date) tablet unknown) (unknown) (no (unknown) (unknown) got slightly (units (u nknown) date) pronounced during unknown) exercise with quick recovery.? The patient has (unknown) (no (unknown) (unknown) had a CT of his (units (unknown) date) cervical spine unknown) without any acute or dangerous findings, his (unknown) (no (unknown) (unknown) hardware failure (units (unknown) date) loosening.? Mild unknown) disc space narrowing and sclerotic facet (unknown) (no (unknown) (unknown) has follow-up with (units (unknown) date) Dr. Dickerson but does unknown) not have a surgery scheduled date, (unknown) (no (unknown) (unknown) has symptoms of (units (unknown) date) cervical unknown) radiculopathy in his left arm similar to his prior (unknown) (no (unknown) (unknown) he states there was (unit s (unknown) date) an error at unable unknown) to stand.? Does take blood pressure (unknown) (no (unknown) (unknown) his cervical and (units (unknown) date) lumbar unknown) spine.Differential diagnosis considered include: acute (unknown) (no (unknown) (unknown) household members: (units (unknown) date) family unknown) (unknown) (no (unknown) (unknown) inferolateral (units ( unknown) date) leads, likely part unknown) of repolarization changes.? During exercise, (unknown) (no (unknown) (unknown) joints noted (units (u nknown) date) unknown) (unknown) (no (unknown) (unknown) leave on most (units ( unknown) date) painful area for up unknown) to 12 hrs (unknown) (no (unknown) (unknown) lidocaine 5 % (units ( unknown) date) topical patch 2 unknown) patch topical DAILY #30 ea 07/12/22 (unknown) (no (unknown) (unknown) lidocaine (units (unkn own) date) [Lidoderm] 5 % unknown) adhesive patch,medicated (unknown) (no (unknown) (unknown) lumbar spine but (units (unknown) date) states he has a unknown) history of chronic low back pain. No nausea (unknown) (no (unknown) (unknown) lumbar xr: (units (unk nown) date) unknown) (unknown) (no (unknown) (unknown) medical records and (unit s (unknown) date) encounters if unknown) available, and nursing notes. I have spoken (unknown) (no (unknown) (unknown) medication (units (unk nown) date) cholesterol unknown) medication and does smoke.? Family history of valve (unknown) (no (unknown) (unknown) menengial signs. (units (unknown) date) Recommend patient unknown) follow-up with his providers as he has them (unknown) (no (unknown) (unknown) metoprolol tartrate (unit s (unknown) date) 25 mg tablet 25 mg unknown) PO BID #180 tabs 04/09/22 (unknown) (no (unknown) (unknown) metoprolol tartrate (unit s (unknown) date) 25 mg tablet unknown) (unknown) (no (unknown) (unknown) mg tablet (units (unkn own) date) (Percocet) unknown) (unknown) (no (unknown) (unknown) neurovascularly (units (unknown) date) intact distally, unknown) afebrile, without immunosuppression or (unknown) (no (unknown) (unknown) of today's note if (units (unknown) date) your PCP is in our unknown) system (unknown) (no (unknown) (unknown) of worsening nerve (units (unknown) date) like pain from his unknown) left hip to his left knee on lateral (unknown) (no (unknown) (unknown) of (units (unkno wn) date) unknown) (unknown) (no (unknown) (unknown) or urinary (units (unkn own) date) incontinence/retenti unknown) on, no saddle anesthesia, no new/worsening distal (unknown) (no (unknown) (unknown) osteomyelitis or (units (unknown) date) epidural abscess (no unknown) history of IV substance use, or bony (unknown) (no (unknown) (unknown) oxycodone-acetamino (unit s (unknown) date) phen 5 mg-325 1 tab unknown) PO Q8H PRN pain #10 tabs 07/12/22 (unknown) (no (unknown) (unknown) oxycodone-acetamino (unit s (unknown) date) phen [Percocet] unknown) 5-325 mg tablet (unknown) (no (unknown) (unknown) pain but did not (units (unknown) date) tell the triage unknown) nurse about the chest pain.? Patient does have (unknown) (no (unknown) (unknown) pain, type 2 (units (u nknown) date) diabetes, smoker, unknown) lumbar radiculopathy with hardware who sees (unknown) (no (unknown) (unknown) patient denies any (units (unknown) date) numbness or unknown) tingling, weakness, fever, chills, cough, (unknown) (no (unknown) (unknown) persistent vomiting (unit s (unknown) date) or other bothersome unknown) symptoms]. (unknown) (no (unknown) (unknown) physical therapy, (units (unknown) date) orthopedic unknown) evaluation, and follow-up with PCP, encouraged him (unknown) (no (unknown) (unknown) prednisone 20 mg (units (unknown) date) tablet 20 mg PO unknown) DAILY 5 days #5 tabs 07/12/22 (unknown) (no (unknown) (unknown) prednisone 20 mg (units (unknown) date) tablet unknown) (unknown) (no (unknown) (unknown) primary care and has (unit s (unknown) date) a history of type 2 unknown) diabetes, hyperlipidemia, hypertension, (unknown) (no (unknown) (unknown) radiculopathy (units ( unknown) date) unknown) (unknown) (no (unknown) (unknown) radiculopathy, (units (unknown) date) chronic pain and unknown) chronic back pain.? He sees Dr. Mitchell for (unknown) (no (unknown) (unknown) relaxers, lidocaine (unit s (unknown) date) patches, encouraged unknown) Tylenol and ibuprofen. Gave him a short (unknown) (no (unknown) (unknown) release (units (unkno wn) date) unknown) (unknown) (no (unknown) (unknown) replacement in the (units (unknown) date) heart.? But no DE. unknown) heart catheterization was done over at (unknown) (no (unknown) (unknown) response.? No (units ( unknown) date) significant unknown) arrhythmias.? Consider repeating exercise stress test (unknown) (no (unknown) (unknown) sertraline 50 mg (units (unknown) date) tablet 50 mg PO unknown) DAILY #90 tabs 04/09/22 (unknown) (no (unknown) (unknown) sertraline 50 mg (units (unknown) date) tablet unknown) (unknown) (no (unknown) (unknown) shows stable (units (u nknown) date) instrumented L5-S1 unknown) diskectomy and fusion with lower lumbar spine (unknown) (no (unknown) (unknown) something topical (units (unknown) date) as needed for pain. unknown) (unknown) (no (unknown) (unknown) sorry for your (units (unknown) date) pain. Please take unknown) ibuprofen 800 mg with Tylenol 975 mg with food (unknown) (no (unknown) (unknown) spinal stenosis, (units (unknown) date) trauma, ligamental unknown) injury, paraspinal or other muscular strain, (unknown) (no (unknown) (unknown) stay hydrated, he (units (unknown) date) was given a unknown) prescription of Percocet while here, muscle (unknown) (no (unknown) (unknown) steroid burst, he (units (unknown) date) denies history of unknown) diabetes even though it is in his history. (unknown) (no (unknown) (unknown) steroids. States (units (unknown) date) that his symptoms unknown) improved and then he came back in on (unknown) (no (unknown) (unknown) studies: Lumbar (units (unknown) date) x-ray but it does unknown) not show any acute changes that I can (unknown) (no (unknown) (unknown) supervision of an (units (unknown) date) attending staff.? unknown) She walked on Dar protocol for 8 minutes (unknown) (no (unknown) (unknown) symptoms of lumbar (units (unknown) date) radiculopathy, unknown) notably I saw the patient for this in the (unknown) (no (unknown) (unknown) symptoms). Disc (units (unknown) date) injury/herniation unknown) w/radiculopathy, degenerative arthritis, (unknown) (no (unknown) (unknown) tabs (units (unkno wn) date) unknown) (unknown) (no (unknown) (unknown) target heart rate.? (units (unknown) date) Baseline blood unknown) pressure 140/100 mmHg and peak blood pressure (unknown) (no (unknown) (unknown) tenderness), renal (units (unknown) date) colic, unknown) pyelonephritis (afebrile, no CVAT, no urinary (unknown) (no (unknown) (unknown) the inherent (units (u nknown) date) limitations of this unknown) software. (unknown) (no (unknown) (unknown) the patient has up (units (unknown) date) to [address] unknown) depression in the inferolateral leads (unknown) (no (unknown) (unknown) times for this type (unit s (unknown) date) of pain. He may need unknown) chronic pain management. Recommend (unknown) (no (unknown) (unknown) underlying resting, (unit s (unknown) date) slight concave unknown) ST-depression in inferolateral leads, which (unknown) (no (unknown) (unknown) understanding. (units (unknown) date) Counseling was unknown) provided regarding the diagnosis and prognosis, (unknown) (no (unknown) (unknown) vertebral body (units (unknown) date) compression unknown) fractures.? No suspicious bony lesions.? L5-S1 (unknown) (no (unknown) (unknown) visualize compared (units (unknown) date) with prior unknown) (unknown) (no (unknown) (unknown) was on a scale of 1 (unit s (unknown) date) to 10, 2 in unknown) intensity.? During exercise, it became worse to (unknown) (no (unknown) (unknown) weakness, decreased (unit s (unknown) date) reflexes or foot unknown) drop), AAA, viscus perforation, (unknown) (no (unknown) (unknown) with Dr. Mitchell (units (unknown) date) regarding unknown) prescription medications, possible steroid injections, (unknown) (no (unknown) (unknown) with imaging (units (u nknown) date) modality, like a unknown) nuclear perfusion study or exercise stress echo (unknown) (no (unknown) (unknown) with quick recovery (unit s (unknown) date) within 30 seconds to unknown) the baseline.? No significant (unknown) (no (unknown) (unknown) with the ED (units (un known) date) attending physician unknown) for BARB level 2, 3, and some level 4s as needed (unknown) (no (unknown) (unknown) with the (units (unkno wn) date) patient/family and unknown) discussed today?s findings whom verbalize Result panel 611 (unknown) (no (unknown) (unknown) (no value) (units (unk nown) date) unknown) (unknown) (no (unknown) (unknown) <Electronically (units (unknown) date) signed by Gege unknown) Dl Soto> (unknown) (no (unknown) (unknown) <Electronically (units (unknown) date) signed by Michelle Dupont unknown) LEATHA Crew> (unknown) (no (unknown) (unknown) <Gege Soto DO (unit s (unknown) date) - Last Filed: unknown) 07/14/22 08:11> (unknown) (no (unknown) (unknown) <Michelle Wilson, (units (unknown) date) [facility] - Last Filed: unknown) 07/12/22 16:42> (unknown) (no (unknown) (unknown) (Lidoderm) (units (unk nown) date) unknown) (unknown) (no (unknown) (unknown) *If you do not have (unit s (unknown) date) a primary care unknown) provider please contact [phone] to (unknown) (no (unknown) (unknown) *Please continue to (unit s (unknown) date) take your regular unknown) medications as directed. (unknown) (no (unknown) (unknown) *Please follow up (units (unknown) date) with your primary unknown) care provider in 2-3 days, call for an (unknown) (no (unknown) (unknown) *Return to (units (unk nown) date) Emergency Department unknown) if you should have any new, worsening, or (unknown) (no (unknown) (unknown) *What to do: (units (u nknown) date) unknown) (unknown) (no (unknown) (unknown) *You have been (units ( unknown) date) diagnosed with unknown) [cervical radiculopathy and lumbar radiculopathy.] (unknown) (no (unknown) (unknown) 0.5 mg PO BEDTIME (units (unknown) date) PRN (Reason: sleep) unknown) Qty: 14 0RF (unknown) (no (unknown) (unknown) 07/12/22 1642 (units ( unknown) date) unknown) (unknown) (no (unknown) (unknown) 07/12/22 (units (unkno wn) date) unknown) (unknown) (no (unknown) (unknown) 07/14/22 0815 (units ( unknown) date) unknown) (unknown) (no (unknown) (unknown) 1 tab PO Q8H PRN (units (unknown) date) (Reason: pain) Qty: unknown) 10 0RF (unknown) (no (unknown) (unknown) 06/16/2022 with (units (unknown) date) atypical chest pain unknown) was admitted to the hospital at that time he (unknown) (no (unknown) (unknown) [address] (units (unknown) date) unknown) (unknown) (no (unknown) (unknown) 14:01 07/12/22 (units (unknown) date) unknown) (unknown) (no (unknown) (unknown) 150 mg PO BID Qty: (units (unknown) date) 60 0RF unknown) (unknown) (no (unknown) (unknown) 160/88 mmHg.? (units ( unknown) date) Baseline rhythm was unknown) sinus with slight concave ST-depression in (unknown) (no (unknown) (unknown) 16:50 (units (unkno wn) date) unknown) (unknown) (no (unknown) (unknown) 2 patch topical (units (unknown) date) DAILY Qty: 30 0RF unknown) (unknown) (no (unknown) (unknown) 20 mg PO DAILY 5 (units (unknown) date) Days Qty: 5 0RF unknown) (unknown) (no (unknown) (unknown) 211-1 (units (unkno wn) date) unknown) (unknown) (no (unknown) (unknown) 25 mg PO BID Qty: (units (unknown) date) 180 3RF unknown) (unknown) (no (unknown) (unknown) 40 mg PO BEDTIME (units (unknown) date) Qty: 90 3RF unknown) (unknown) (no (unknown) (unknown) 5 and spread to the (unit s (unknown) date) entire chest and unknown) returned back to the baseline in recovery. (unknown) (no (unknown) (unknown) 50 mg PO DAILY Qty: (unit s (unknown) date) 90 3RF unknown) (unknown) (no (unknown) (unknown) 600 mg PO TID Qty: (units (unknown) date) 270 3RF unknown) (unknown) (no (unknown) (unknown) 81 mg PO DAILY (units (unknown) date) unknown) (unknown) (no (unknown) (unknown) : [id number] (units (u nknown) date) unknown) (unknown) (no (unknown) (unknown) ? (units (unkno wn) date) unknown) (unknown) (no (unknown) (unknown) ADD (attention (units (unknown) date) deficit disorder) unknown) (unknown) (no (unknown) (unknown) [facility] MD (units (unknown) date) [Primary Care unknown) Provider] (unknown) (no (unknown) (unknown) Accession Number: (units (unknown) date) [id number] ?? unknown) (unknown) (no (unknown) (unknown) Accession Number: (units (unknown) date) [id number] ?? unknown) (unknown) (no (unknown) (unknown) Acct:[id number] (units (unknown) date) unknown) (unknown) (no (unknown) (unknown) Acct:[id number] (units (unknown) date) unknown) (unknown) (no (unknown) (unknown) Activity (units (unkno wn) date) Restrictions/Additio unknown) nal Instructions: (unknown) (no (unknown) (unknown) Age/Sex: 52 / M (units (unknown) date) unknown) (unknown) (no (unknown) (unknown) Allergies (units (unkn own) date) unknown) (unknown) (no (unknown) (unknown) Allergy/AdvReac (units (unknown) date) Type Severity unknown) Reaction Status Date / Time (unknown) (no (unknown) (unknown) [place]Y [place] [id number] (unit s (unknown) date) unknown) (unknown) (no (unknown) (unknown) Approved by: Celso Baunits (unknown) date) Alex Barahona on unknown) 07/12/2022 at 15:24? (unknown) (no (unknown) (unknown) Asthma (units (unkno wn) date) unknown) (unknown) (no (unknown) (unknown) Blood Pressure (units (unknown) date) 176/93 H 07/12/22 unknown) 14:01 (unknown) (no (unknown) (unknown) Blood Pressure (units (unknown) date) 176/93 H 136/83 unknown) (unknown) (no (unknown) (unknown) Bones:? 5 (units (unkn own) date) [id number] unknown) vertebrae are present.? There is normal bony (unknown) (no (unknown) (unknown) CARDIAC STRESS:? (units (unknown) date) The patient unknown) underwent exercise stress test under the (unknown) (no (unknown) (unknown) COMPARISON:? [facility] (unit s (unknown) date) [facility], , XR unknown) LUMBAR SPINE 2-3V, 06/13/2021, 13:37. (unknown) (no (unknown) (unknown) CONCLUSION:? (units (un known) date) Exercise stress test unknown) inconclusive for inducible ischemia in view of (unknown) (no (unknown) (unknown) COPIES MNE: PALV; (units (unknown) date) unknown) (unknown) (no (unknown) (unknown) CT - cervical (units ( unknown) date) spine: unknown) (unknown) (no (unknown) (unknown) CT cervical spine (units (unknown) date) from 06/16/2022 unknown) without new traumatic injury or new (unknown) (no (unknown) (unknown) Cervical radicular (units (unknown) date) pain, Lumbar unknown) radiculopathy (unknown) (no (unknown) (unknown) Cervical (units (unkno wn) date) radiculopathy due to unknown) osteoarthritis of spine (unknown) (no (unknown) (unknown) Chief complaint: (units (unknown) date) Extremity unknown) Problem,Nontraumatic (unknown) (no (unknown) (unknown) Clinical (units (unkno wn) date) Impression: unknown) (unknown) (no (unknown) (unknown) Copy of cardiac (units (unknown) date) stress test from unknown) 06/17/2022 (unknown) (no (unknown) (unknown) Coronary artery (units (unknown) date) disease unknown) (unknown) (no (unknown) (unknown) Cosign (units (unkno wn) date) unknown) (unknown) (no (unknown) (unknown) Course of care: Saw (unit s (unknown) date) the patient when he unknown) is brought back to a room, he endorses (unknown) (no (unknown) (unknown) Course (units (unkno wn) date) unknown) (unknown) (no (unknown) (unknown) DATE OF SERVICE:? (units (unknown) date) 06/17/2022 unknown) (unknown) (no (unknown) (unknown) DICTATING MD/COPIES (unit s (unknown) date) TO: Vicente Mccoy, unknown) MD (unknown) (no (unknown) (unknown) : 1970 (units (unknown) date) Acct:[id number] unknown) (unknown) (no (unknown) (unknown) : 1970 (units (unknown) date) unknown) (unknown) (no (unknown) (unknown) Date of Service: (units (unknown) date) 07/12/22 unknown) (unknown) (no (unknown) (unknown) Date of Service: (units (unknown) date) 06/16/22 unknown) (unknown) (no (unknown) (unknown) Departure (units (unkn own) date) unknown) (unknown) (no (unknown) (unknown) Depression (units (unk nown) date) unknown) (unknown) (no (unknown) (unknown) Discharge Plan (units (unknown) date) unknown) (unknown) (no (unknown) (unknown) Discontinued (units (u nknown) date) Medications unknown) (unknown) (no (unknown) (unknown) Discussed the (units ( unknown) date) findings with the unknown) hospitalist team. (unknown) (no (unknown) (unknown) Documented By: BRINDA (units (unknown) date) unknown) (unknown) (no (unknown) (unknown) ED Attending (units (u nknown) date) Cosignature unknown) Attestation: (unknown) (no (unknown) (unknown) ER Physician: (units ( unknown) date) Michelle Wilson unknown) (unknown) (no (unknown) (unknown) Electronically (units (unknown) date) signed by: LEATHA Heck (unknown) (no (unknown) (unknown) Emergency Report (units (unknown) date) unknown) (unknown) (no (unknown) (unknown) Essential (units (unkn own) date) hypertension unknown) (unknown) (no (unknown) (unknown) Exam (units (unkno wn) date) unknown) (unknown) (no (unknown) (unknown) FINDINGS:? (units (unk nown) date) unknown) (unknown) (no (unknown) (unknown) Family History (units (unknown) date) (Reviewed 06/17/22 @ unknown) 02:22 by Daniel Hector MD) (unknown) (no (unknown) (unknown) Father Hypertension (unit s (unknown) date) unknown) (unknown) (no (unknown) (unknown) General (units (unkno wn) date) unknown) (unknown) (no (unknown) (unknown) Generalized anxiety (unit s (unknown) date) disorder with panic unknown) attacks (unknown) (no (unknown) (unknown) HPI - Extremity (units (unknown) date) Problem unknown) (unknown) (no (unknown) (unknown) HPI Narrative: (units (unknown) date) unknown) (unknown) (no (unknown) (unknown) Herniated (units (unkn own) date) intervertebral disc unknown) of lumbar spine (unknown) (no (unknown) (unknown) History of Present (units (unknown) date) Illness unknown) (unknown) (no (unknown) (unknown) Home Medications (units (unknown) date) unknown) (unknown) (no (unknown) (unknown) Hx of cervical (units (unknown) date) discectomy () unknown) (unknown) (no (unknown) (unknown) Hyperlipidemia (units (unknown) date) unknown) (unknown) (no (unknown) (unknown) Hypertension (units (u nknown) date) unknown) (unknown) (no (unknown) (unknown) I performed a (units ( unknown) date) preliminary unknown) independent interpretation of the following imaging (unknown) (no (unknown) (unknown) I was immediately (units (unknown) date) available in the unknown) department for consultation. Documentation (unknown) (no (unknown) (unknown) I, Michelle Wilson, (units (unknown) date) LEATHA, personally unknown) performed the services described in the (unknown) (no (unknown) (unknown) IMPRESSION:? (units (u nknown) date) unknown) (unknown) (no (unknown) (unknown) INDICATION:? Chest (units (unknown) date) pain, left arm pain, unknown) underlying CAD, hypertension (unknown) (no (unknown) (unknown) INDICATIONS:? (units ( unknown) date) worsening sciatica unknown) (unknown) (no (unknown) (unknown) Imaging Data (units (u nknown) date) unknown) (unknown) (no (unknown) (unknown) Initial Vital Signs (unit s (unknown) date) unknown) (unknown) (no (unknown) (unknown) Initial Vital (units ( unknown) date) Signs: unknown) (unknown) (no (unknown) (unknown) Instructions: (units ( unknown) date) Chronic Neck Pain, unknown) DI for Cervical Radiculopathy, Lumbar (unknown) (no (unknown) (unknown) [facility] (units (unknown) date) [address] unknown) [place] [address] (unknown) (no (unknown) (unknown) [facility] (units (unknown) date) unknown) (unknown) (no (unknown) (unknown) Last Admin: (units (un known) date) 07/12/22 15:58 Dose: unknown) 2 each (unknown) (no (unknown) (unknown) Last Admin: (units (un known) date) 07/12/22 15:58 Dose: unknown) 2 tab (unknown) (no (unknown) (unknown) Last Admin: (units (un known) date) 07/12/22 15:58 Dose: unknown) 40 mg (unknown) (no (unknown) (unknown) Last Admin: (units (un known) date) 07/12/22 16:19 Dose: unknown) 750 mg (unknown) (no (unknown) (unknown) Lidocaine (units (unkn own) date) (Lidocaine Patch 1 unknown) Each Adh..Patch) 2 each TOP NOW ONE (unknown) (no (unknown) (unknown) Loc: AC (units (unkno wn) date) unknown) (unknown) (no (unknown) (unknown) Loc: ED (units (unkno wn) date) unknown) (unknown) (no (unknown) (unknown) Lower lumbar spine (units (unknown) date) degenerative disc unknown) disease and arthropathy, unchanged (unknown) (no (unknown) (unknown) MDM - Extremity (units (unknown) date) (Nontraumatic) unknown) (unknown) (no (unknown) (unknown) MDM Narrative (units ( unknown) date) unknown) (unknown) (no (unknown) (unknown) MIPS: This (units (unk nown) date) encounter doesn't unknown) have any diagnosis associated with MIPS criteria. (unknown) (no (unknown) (unknown) MR#: [id number] (units (unknown) date) unknown) (unknown) (no (unknown) (unknown) Anthony Alonso II (unit s (unknown) date) - unknown) (unknown) (no (unknown) (unknown) Medical History (units (unknown) date) (Reviewed 06/17/22 @ unknown) 02:22 by Daniel Hector MD) (unknown) (no (unknown) (unknown) Medical Records (units (unknown) date) unknown) (unknown) (no (unknown) (unknown) Medical decision (units (unknown) date) making narrative: unknown) (unknown) (no (unknown) (unknown) Medical records (units (unknown) date) narrative: unknown) (unknown) (no (unknown) (unknown) Medication (units (unk nown) date) Instructions unknown) Recorded Confirmed (unknown) (no (unknown) (unknown) Medication (units (unk nown) date) Instructions unknown) Recorded (unknown) (no (unknown) (unknown) Methocarbamol (units ( unknown) date) (Methocarbamol 500 unknown) Mg Tablet) 750 mg PO NOW ONE (unknown) (no (unknown) (unknown) Mode of arrival: (units (unknown) date) Ambulatory unknown) (unknown) (no (unknown) (unknown) Morning for his (units (unknown) date) orthopedic issues unknown) and is is presenting to the ED via POV with a (unknown) (no (unknown) (unknown) Mother Diabetes (units (unknown) date) mellitus unknown) (unknown) (no (unknown) (unknown) Flaco Ma MD (units (unknown) date) [Physician] - 5-7 unknown) days (unknown) (no (unknown) (unknown) My Impression: (units (unknown) date) unknown) (unknown) (no (unknown) (unknown) New (units (unkno wn) date) unknown) (unknown) (no (unknown) (unknown) No Action (units (unkn own) date) unknown) (unknown) (no (unknown) (unknown) No significant (units (unknown) date) arrhythmias seen. unknown) (unknown) (no (unknown) (unknown) Nuclear Medicine (units (unknown) date) Report unknown) (unknown) (no (unknown) (unknown) Occasional wrong (units (unknown) date) word or 'sound unknown) alike' substitutions may have occurred due to (unknown) (no (unknown) (unknown) On Thursday, please (units (unknown) date) call Dr. Dickerson and unknown) discuss follow-up, please touch base (unknown) (no (unknown) (unknown) Opiate addiction (units (unknown) date) unknown) (unknown) (no (unknown) (unknown) Ordered: (units (unkno wn) date) unknown) (unknown) (no (unknown) (unknown) Ordering Provider: (units (unknown) date) Daniel Hector MD unknown) (unknown) (no (unknown) (unknown) Ordering Provider: (units (unknown) date) Michelle Wilson unknown) (unknown) (no (unknown) (unknown) Orders (units (unkno wn) date) unknown) (unknown) (no (unknown) (unknown) Oxycodone/Acetamino (unit s (unknown) date) phen unknown) (Oxycodone/Acetamino phen 5/325 Tablet) 2 tab PO NOW ONE (unknown) (no (unknown) (unknown) Oxygen Delivery (units (unknown) date) Method 07/12/22 unknown) 14:01 (unknown) (no (unknown) (unknown) Oxygen Delivery (units (unknown) date) Method Room Air Room unknown) Air (unknown) (no (unknown) (unknown) PROCEDURE:? (units (un known) date) Exercise stress unknown) test. (unknown) (no (unknown) (unknown) PROCEDURE:? 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 (unknown) (no (unknown) (unknown) Patient: Novemberbaljit (units (unknown) date) IIAnthony MR# unknown) (unknown) (no (unknown) (unknown) Patient: Novemberlor (units (unknown) date) IIAnthony unknown) (unknown) (no (unknown) (unknown) Peripheral (units (unk nown) date) neuropathy unknown) (unknown) (no (unknown) (unknown) Portions of this (units (unknown) date) chart have been unknown) created with [employer] voice recognition software. (unknown) (no (unknown) (unknown) Prednisone (units (unk nown) date) (Prednisone 20 Mg unknown) Tablet) 40 mg PO NOW ONE (unknown) (no (unknown) (unknown) Prescriptions: (units (unknown) date) unknown) (unknown) (no (unknown) (unknown) Previous Rx's (units ( unknown) date) unknown) (unknown) (no (unknown) (unknown) Procedure: Exercise (unit s (unknown) date) treadmill NON NUC unknown) (unknown) (no (unknown) (unknown) Procedure: XR (units ( unknown) date) lumbar spine 2-3V unknown) (unknown) (no (unknown) (unknown) Pt is nontoxic (units ( unknown) date) appearing. Patient unknown) has soft tissue tenderness to palpation. Pt is (unknown) (no (unknown) (unknown) Pulse Oximetry 97 (units (unknown) date) 07/12/22 14:01 unknown) (unknown) (no (unknown) (unknown) Pulse Oximetry 97 (units (unknown) date) 97 unknown) (unknown) (no (unknown) (unknown) Pulse Rate 93 H (units (unknown) date) 07/12/22 14:01 unknown) (unknown) (no (unknown) (unknown) Pulse Rate 93 H 86 (units (unknown) date) unknown) (unknown) (no (unknown) (unknown) REACTION' (units (unkn own) date) unknown) (unknown) (no (unknown) (unknown) RLS (restless legs (units (unknown) date) syndrome) unknown) (unknown) (no (unknown) (unknown) Radiculopathy (units ( unknown) date) unknown) (unknown) (no (unknown) (unknown) Radiologist's (units ( unknown) date) Impression: unknown) (unknown) (no (unknown) (unknown) Referrals: (units (unk nown) date) unknown) (unknown) (no (unknown) (unknown) Related Data (units (u nknown) date) unknown) (unknown) (no (unknown) (unknown) Respiratory Rate 15 (unit s (unknown) date) 07/12/22 14:01 unknown) (unknown) (no (unknown) (unknown) Respiratory Rate 15 (unit s (unknown) date) unknown) (unknown) (no (unknown) (unknown) Rx Instructions: (units (unknown) date) unknown) (unknown) (no (unknown) (unknown) Signed By: (units (unk nown) date) unknown) (unknown) (no (unknown) (unknown) Signed (units (unkno wn) date) unknown) (unknown) (no (unknown) (unknown) [facility] (units ( unknown) date) Hospital when to unknown) schedule his neck surgery.? Patient states left (unknown) (no (unknown) (unknown) [facility] (units ( unknown) date) Hospital.? Patient unknown) rates 8/10 chest pain at this time.? EKG and (unknown) (no (unknown) (unknown) Smoking Status: (units (unknown) date) Current every day unknown) smoker (unknown) (no (unknown) (unknown) Social History (units (unknown) date) (Reviewed 06/16/22 @ unknown) 21:00 by Flaco Brock MD) (unknown) (no (unknown) (unknown) Social determinants (unit s (unknown) date) of health that may unknown) impact treatment or disposition: (unknown) (no (unknown) (unknown) Soft tissues:? (units ( unknown) date) Overlying bowel gas unknown) pattern is normal.? No suspicious soft tissue (unknown) (no (unknown) (unknown) Source: patient (units (unknown) date) unknown) (unknown) (no (unknown) (unknown) Spinal stenosis of (units (unknown) date) lumbar region with unknown) neurogenic claudication (unknown) (no (unknown) (unknown) Spondylolisthesis (units (unknown) date) of lumbar region unknown) (unknown) (no (unknown) (unknown) Stable instrumented (unit s (unknown) date) L5-S1 discectomy and unknown) fusion (unknown) (no (unknown) (unknown) Stand Alone Forms: (units (unknown) date) Patient Portal/API unknown) (unknown) (no (unknown) (unknown) Stated complaint: (units (unknown) date) LT side pain from unknown) neck down to foot t-5 (unknown) (no (unknown) (unknown) Stenosis of artery (units (unknown) date) unknown) (unknown) (no (unknown) (unknown) Stop: 07/12/22 (units (unknown) date) 15:44 unknown) (unknown) (no (unknown) (unknown) Substance Use Type: (unit s (unknown) date) does not use unknown) (unknown) (no (unknown) (unknown) Surgical History (units (unknown) date) (Reviewed 06/17/22 @ unknown) 02:22 by Daniel Hector MD) (unknown) (no (unknown) (unknown) TECHNIQUE:? 3 views (unit s (unknown) date) of the lumbar spine unknown) were acquired.? (unknown) (no (unknown) (unknown) Temperature 98.4 F (units (unknown) date) 07/12/22 14:01 unknown) (unknown) (no (unknown) (unknown) Temperature 98.4 F (units (unknown) date) unknown) (unknown) (no (unknown) (unknown) This is a (units (unkno wn) date) 52-year-old unknown) gentleman presents to the emergency department complaining (unknown) (no (unknown) (unknown) This is a (units (unkn own) date) 52-year-old male unknown) with history of cervical radiculopathy, chronic neck (unknown) (no (unknown) (unknown) Time Seen by (units (u nknown) date) Provider: 07/12/22 unknown) 15:37 (unknown) (no (unknown) (unknown) 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 (units (unkno wn) date) unknown) (unknown) (no (unknown) (unknown) Vital Signs - 8 hr (units (unknown) date) unknown) (unknown) (no (unknown) (unknown) Vital Signs (units (un known) date) unknown) (unknown) (no (unknown) (unknown) Vital Signs: I, the (unit s (unknown) date) ED provider, unknown) reviewed the patient?s vital signs, past (unknown) (no (unknown) (unknown) Vital signs: (units (u nknown) date) unknown) (unknown) (no (unknown) (unknown) Vitamin D (units (unkn own) date) deficiency unknown) (unknown) (no (unknown) (unknown) XRay Report (units (un known) date) unknown) (unknown) (no (unknown) (unknown) [ ] New medication (units (unknown) date) written as a paper unknown) prescription (unknown) (no (unknown) (unknown) [ ] No new (units (unk nown) date) medications given unknown) (unknown) (no (unknown) (unknown) [x ] New medication (unit s (unknown) date) prescriptions sent unknown) [facility] [place] (unknown) (no (unknown) (unknown) alcohol intake (units (unknown) date) frequency: a few unknown) times a month (unknown) (no (unknown) (unknown) alcohol intake: (units (unknown) date) never unknown) (unknown) (no (unknown) (unknown) alignment.? No (units (unknown) date) unknown) (unknown) (no (unknown) (unknown) alprazolam 0.5 mg (units (unknown) date) tablet 0.5 mg PO unknown) BEDTIME PRN sleep #14 05/20/22 (unknown) (no (unknown) (unknown) alprazolam 0.5 mg (units (unknown) date) tablet unknown) (unknown) (no (unknown) (unknown) and 38 seconds, (units (unknown) date) achieved maximum unknown) heart rate of 167, which was 101 percent of (unknown) (no (unknown) (unknown) and plan for (units (u nknown) date) chronic pain unknown) regimen. Thank you for coming in for evaluation, I am (unknown) (no (unknown) (unknown) and return for (units ( unknown) date) severe symptoms of unknown) weakness, incontinence, paresthesia his groin, (unknown) (no (unknown) (unknown) and right leg which (unit s (unknown) date) exacerbates his unknown) sciatica and leg pain. He is nontender over (unknown) (no (unknown) (unknown) and specific details (unit s (unknown) date) were provided for unknown) the plan of care. Questions are addressed (unknown) (no (unknown) (unknown) and states that he (units (unknown) date) is seen Dr. Ma unknown) for cervical spine surgery next month (unknown) (no (unknown) (unknown) and there is (units (u nknown) date) agreement with the unknown) plan and for follow-up. Patient is appropriate (unknown) (no (unknown) (unknown) and water every 8 (units (unknown) date) hours as needed. You unknown) can take Percocet occasionally for (unknown) (no (unknown) (unknown) appointment. Let (units (unknown) date) them know you were unknown) seen in the Emergency Department and that we (unknown) (no (unknown) (unknown) arm discomfort is (units (unknown) date) new. unknown) (unknown) (no (unknown) (unknown) arrhythmias.? The (units (unknown) date) patient has resting, unknown) squeezing left-sided chest pain, which (unknown) (no (unknown) (unknown) asked that you be (units (unknown) date) seen for follow-up. unknown) We will electronically transmit a record (unknown) (no (unknown) (unknown) aspect over the (units (unknown) date) last 3 or 4 days.? unknown) Patient has a history of cervical (unknown) (no (unknown) (unknown) aspirin 81 mg (units ( unknown) date) tablet,delayed 81 mg unknown) PO DAILY 04/11/22 05/20/22 (unknown) (no (unknown) (unknown) aspirin 81 mg (units ( unknown) date) tablet,delayed unknown) release (/EC) (unknown) (no (unknown) (unknown) at L3-4 and L4-5, (units (unknown) date) similar to the prior unknown) exam. (unknown) (no (unknown) (unknown) atorvastatin 40 mg (units (unknown) date) tablet 40 mg PO unknown) BEDTIME #90 tabs 04/11/22 (unknown) (no (unknown) (unknown) atorvastatin 40 mg (units (unknown) date) tablet unknown) (unknown) (no (unknown) (unknown) baseline resting (units (unknown) date) left-sided, unknown) squeezing chest pain, which got mildly worse during (unknown) (no (unknown) (unknown) breakthrough pain, (units (unknown) date) continue on your unknown) gabapentin for the nerve pain. Use (unknown) (no (unknown) (unknown) bupropion HCl 150 (units (unknown) date) mg 24 hr tablet, 150 unknown) mg PO BID #60 tabs 05/20/22 (unknown) (no (unknown) (unknown) bupropion HCl 150 (units (unknown) date) mg tablet extended unknown) release 24 hr (unknown) (no (unknown) (unknown) but does have (units ( unknown) date) dyspnea.? Patient unknown) had heart catheterization 3 or 5 years ago and (unknown) (no (unknown) (unknown) calcifications.? (units (unknown) date) unknown) (unknown) (no (unknown) (unknown) cervical spine CT is (unit s (unknown) date) appended above as unknown) well as his lumbar x-ray from today which (unknown) (no (unknown) (unknown) chest pain protocol (unit s (unknown) date) being done.? Patient unknown) originally came in for left-sided neck (unknown) (no (unknown) (unknown) chronic neck pain.? (unit s (unknown) date) Is going to hear unknown) back from ortho spine surgeon next week at (unknown) (no (unknown) (unknown) chronic pain, (units ( unknown) date) osteoarthritis, unknown) epidural metastases, herpes zoster and critical (unknown) (no (unknown) (unknown) concerning (units (unk nown) date) symptoms, such as unknown) [fever greater than 101F, chills, worsening pain, (unknown) (no (unknown) (unknown) cord compression. (units (unknown) date) unknown) (unknown) (no (unknown) (unknown) dd: 06/17/2022 (units (unknown) date) 12:47:00 dt: unknown) 06/17/2022 17:58:00 (unknown) (no (unknown) (unknown) degenerative disc (units (unknown) date) disease and unknown) arthropathy, unchanged from prior x-rays. Patient (unknown) (no (unknown) (unknown) discectomy and (units (unknown) date) unknown) (unknown) (no (unknown) (unknown) doc#: (units (unkno wn) date) [id number]/job#: [id number] unknown) (unknown) (no (unknown) (unknown) documentation, and (units (unknown) date) it accurately unknown) records my words and actions. 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 He denies any tenderness to his (unknown) (no (unknown) (unknown) emergency (units (unkn own) date) department on unknown) 05/30/2022 and he is prescribed a short course of (unknown) (no (unknown) (unknown) encouraged him to (units (unknown) date) follow-up Thursday unknown) morning and follow-up with Dr. Teran for (unknown) (no (unknown) (unknown) episodes. He is (units (unknown) date) without weakness, unknown) numbness, tingling, is able to lift his left (unknown) (no (unknown) (unknown) establish care with (unit s (unknown) date) [facility]. (unknown) (no (unknown) (unknown) evidence of (units (un known) date) infection, unknown) peritoneal signs, hypertensive crisis, incontinence, or (unknown) (no (unknown) (unknown) exercise and (units (u nknown) date) returned back to the unknown) baseline in recovery.? Normal hemodynamic (unknown) (no (unknown) (unknown) extended release (units (unknown) date) unknown) (unknown) (no (unknown) (unknown) fever, chills or (units (unknown) date) new problem. unknown) (unknown) (no (unknown) (unknown) for further (units (un known) date) coronary artery unknown) disease diagnosis and risk stratification. (unknown) (no (unknown) (unknown) for outpatient (units (unknown) date) management. unknown) (unknown) (no (unknown) (unknown) fracture, (no (units ( unknown) date) trauma, no bony unknown) tenderness to palpation), cauda equina (no bowel (unknown) (no (unknown) (unknown) further pain (units (u nknown) date) control as he has unknown) presented to the emergency department numerous (unknown) (no (unknown) (unknown) fusion with (units (un known) date) posterior thomas and unknown) screw instrumentation good position.? No evidence (unknown) (no (unknown) (unknown) gabapentin 600 mg (units (unknown) date) tablet 600 mg PO TID unknown) #270 tabs 05/20/22 (unknown) (no (unknown) (unknown) gabapentin 600 mg (units (unknown) date) tablet unknown) (unknown) (no (unknown) (unknown) got slightly (units (u nknown) date) pronounced during unknown) exercise with quick recovery.? The patient has (unknown) (no (unknown) (unknown) had a CT of his (units (unknown) date) cervical spine unknown) without any acute or dangerous findings, his (unknown) (no (unknown) (unknown) hardware failure (units (unknown) date) loosening.? Mild unknown) disc space narrowing and sclerotic facet (unknown) (no (unknown) (unknown) has been reviewed. (units (unknown) date) I agree with unknown) assessment and plan. (unknown) (no (unknown) (unknown) has follow-up with (units (unknown) date) Dr. Dickerson but does unknown) not have a surgery scheduled date, (unknown) (no (unknown) (unknown) has symptoms of (units (unknown) date) cervical unknown) radiculopathy in his left arm similar to his prior (unknown) (no (unknown) (unknown) he states there was (unit s (unknown) date) an error at unable unknown) to stand.? Does take blood pressure (unknown) (no (unknown) (unknown) his cervical and (units (unknown) date) lumbar unknown) spine.Differential diagnosis considered include: acute (unknown) (no (unknown) (unknown) household members: (units (unknown) date) family unknown) (unknown) (no (unknown) (unknown) inferolateral (units ( unknown) date) leads, likely part unknown) of repolarization changes.? During exercise, (unknown) (no (unknown) (unknown) joints noted (units (u nknown) date) unknown) (unknown) (no (unknown) (unknown) leave on most (units ( unknown) date) painful area for up unknown) to 12 hrs (unknown) (no (unknown) (unknown) lidocaine 5 % (units ( unknown) date) topical patch 2 unknown) patch topical DAILY #30 ea 07/12/22 (unknown) (no (unknown) (unknown) lidocaine (units (unkn own) date) [Lidoderm] 5 % unknown) adhesive patch,medicated (unknown) (no (unknown) (unknown) lumbar spine but (units (unknown) date) states he has a unknown) history of chronic low back pain. No nausea (unknown) (no (unknown) (unknown) lumbar xr: (units (unk nown) date) unknown) (unknown) (no (unknown) (unknown) medical records and (unit s (unknown) date) encounters if unknown) available, and nursing notes. I have spoken (unknown) (no (unknown) (unknown) medication (units (unk nown) date) cholesterol unknown) medication and does smoke.? Family history of valve (unknown) (no (unknown) (unknown) menengial signs. (units (unknown) date) Recommend patient unknown) follow-up with his providers as he has them (unknown) (no (unknown) (unknown) metoprolol tartrate (unit s (unknown) date) 25 mg tablet 25 mg unknown) PO BID #180 tabs 04/09/22 (unknown) (no (unknown) (unknown) metoprolol tartrate (unit s (unknown) date) 25 mg tablet unknown) (unknown) (no (unknown) (unknown) mg tablet (units (unkn own) date) (Percocet) unknown) (unknown) (no (unknown) (unknown) neurovascularly (units (unknown) date) intact distally, unknown) afebrile, without immunosuppression or (unknown) (no (unknown) (unknown) of today's note if (units (unknown) date) your PCP is in our unknown) system (unknown) (no (unknown) (unknown) of worsening nerve (units (unknown) date) like pain from his unknown) left hip to his left knee on lateral (unknown) (no (unknown) (unknown) of (units (unkno wn) date) unknown) (unknown) (no (unknown) (unknown) or urinary (units (unkn own) date) incontinence/retenti unknown) on, no saddle anesthesia, no new/worsening distal (unknown) (no (unknown) (unknown) osteomyelitis or (units (unknown) date) epidural abscess (no unknown) history of IV substance use, or bony (unknown) (no (unknown) (unknown) oxycodone-acetamino (unit s (unknown) date) phen 5 mg-325 1 tab unknown) PO Q8H PRN pain #10 tabs 07/12/22 (unknown) (no (unknown) (unknown) oxycodone-acetamino (unit s (unknown) date) phen [Percocet] unknown) 5-325 mg tablet (unknown) (no (unknown) (unknown) pain but did not (units (unknown) date) tell the triage unknown) nurse about the chest pain.? Patient does have (unknown) (no (unknown) (unknown) pain, type 2 (units (u nknown) date) diabetes, smoker, unknown) lumbar radiculopathy with hardware who sees (unknown) (no (unknown) (unknown) patient denies any (units (unknown) date) numbness or unknown) tingling, weakness, fever, chills, cough, (unknown) (no (unknown) (unknown) persistent vomiting (unit s (unknown) date) or other bothersome unknown) symptoms]. (unknown) (no (unknown) (unknown) physical therapy, (units (unknown) date) orthopedic unknown) evaluation, and follow-up with PCP, encouraged him (unknown) (no (unknown) (unknown) prednisone 20 mg (units (unknown) date) tablet 20 mg PO unknown) DAILY 5 days #5 tabs 07/12/22 (unknown) (no (unknown) (unknown) prednisone 20 mg (units (unknown) date) tablet unknown) (unknown) (no (unknown) (unknown) primary care and has (unit s (unknown) date) a history of type 2 unknown) diabetes, hyperlipidemia, hypertension, (unknown) (no (unknown) (unknown) radiculopathy (units ( unknown) date) unknown) (unknown) (no (unknown) (unknown) radiculopathy, (units (unknown) date) chronic pain and unknown) chronic back pain.? He sees Dr. Mitchell for (unknown) (no (unknown) (unknown) relaxers, lidocaine (unit s (unknown) date) patches, encouraged unknown) Tylenol and ibuprofen. Gave him a short (unknown) (no (unknown) (unknown) release (units (unkno wn) date) unknown) (unknown) (no (unknown) (unknown) replacement in the (units (unknown) date) heart.? But no DE. unknown) heart catheterization was done over at (unknown) (no (unknown) (unknown) response.? No (units ( unknown) date) significant unknown) arrhythmias.? Consider repeating exercise stress test (unknown) (no (unknown) (unknown) sertraline 50 mg (units (unknown) date) tablet 50 mg PO unknown) DAILY #90 tabs 04/09/22 (unknown) (no (unknown) (unknown) sertraline 50 mg (units (unknown) date) tablet unknown) (unknown) (no (unknown) (unknown) shows stable (units (u nknown) date) instrumented L5-S1 unknown) diskectomy and fusion with lower lumbar spine (unknown) (no (unknown) (unknown) something topical (units (unknown) date) as needed for pain. unknown) (unknown) (no (unknown) (unknown) sorry for your (units (unknown) date) pain. Please take unknown) ibuprofen 800 mg with Tylenol 975 mg with food (unknown) (no (unknown) (unknown) spinal stenosis, (units (unknown) date) trauma, ligamental unknown) injury, paraspinal or other muscular strain, (unknown) (no (unknown) (unknown) stay hydrated, he (units (unknown) date) was given a unknown) prescription of Percocet while here, muscle (unknown) (no (unknown) (unknown) steroid burst, he (units (unknown) date) denies history of unknown) diabetes even though it is in his history. (unknown) (no (unknown) (unknown) steroids. States (units (unknown) date) that his symptoms unknown) improved and then he came back in on (unknown) (no (unknown) (unknown) studies: Lumbar (units (unknown) date) x-ray but it does unknown) not show any acute changes that I can (unknown) (no (unknown) (unknown) supervision of an (units (unknown) date) attending staff.? unknown) She walked on Dar protocol for 8 minutes (unknown) (no (unknown) (unknown) symptoms of lumbar (units (unknown) date) radiculopathy, unknown) notably I saw the patient for this in the (unknown) (no (unknown) (unknown) symptoms). Disc (units (unknown) date) injury/herniation unknown) w/radiculopathy, degenerative arthritis, (unknown) (no (unknown) (unknown) tabs (units (unkno wn) date) unknown) (unknown) (no (unknown) (unknown) target heart rate.? (units (unknown) date) Baseline blood unknown) pressure 140/100 mmHg and peak blood pressure (unknown) (no (unknown) (unknown) tenderness), renal (units (unknown) date) colic, unknown) pyelonephritis (afebrile, no CVAT, no urinary (unknown) (no (unknown) (unknown) the inherent (units (u nknown) date) limitations of this unknown) software. (unknown) (no (unknown) (unknown) the patient has up (units (unknown) date) to [address] unknown) depression in the inferolateral leads (unknown) (no (unknown) (unknown) times for this type (unit s (unknown) date) of pain. He may need unknown) chronic pain management. Recommend (unknown) (no (unknown) (unknown) underlying resting, (unit s (unknown) date) slight concave unknown) ST-depression in inferolateral leads, which (unknown) (no (unknown) (unknown) understanding. (units (unknown) date) Counseling was unknown) provided regarding the diagnosis and prognosis, (unknown) (no (unknown) (unknown) vertebral body (units (unknown) date) compression unknown) fractures.? No suspicious bony lesions.? L5-S1 (unknown) (no (unknown) (unknown) visualize compared (units (unknown) date) with prior unknown) (unknown) (no (unknown) (unknown) was on a scale of 1 (unit s (unknown) date) to 10, 2 in unknown) intensity.? During exercise, it became worse to (unknown) (no (unknown) (unknown) weakness, decreased (unit s (unknown) date) reflexes or foot unknown) drop), AAA, viscus perforation, (unknown) (no (unknown) (unknown) with Dr. Mitchell (units (unknown) date) regarding unknown) prescription medications, possible steroid injections, (unknown) (no (unknown) (unknown) with imaging (units (u nknown) date) modality, like a unknown) nuclear perfusion study or exercise stress echo (unknown) (no (unknown) (unknown) with quick recovery (unit s (unknown) date) within 30 seconds to unknown) the baseline.? No significant (unknown) (no (unknown) (unknown) with the ED (units (un known) date) attending physician unknown) for BARB level 2, 3, and some level 4s as needed (unknown) (no (unknown) (unknown) with the (units (unkno wn) date) patient/family and unknown) discussed today?s findings whom verbalize Result panel 612 (unknown) (no (unknown) (unknown) (no value) (units (unk nown) date) unknown) (unknown) (no (unknown) (unknown) #: [id number] (units ( unknown) date) unknown) (unknown) (no (unknown) (unknown) 09/09/22 (units (unkno wn) date) unknown) (unknown) (no (unknown) (unknown) [address] [place] [address] (units (unknown) date) unknown) (unknown) (no (unknown) (unknown) Accession Number: (units (unknown) date) [id number] unknown) (unknown) (no (unknown) (unknown) Age/Sex: 52 / M (units (unknown) date) Date of Service: unknown) (unknown) (no (unknown) (unknown) [place], [place] (units ( unknown) date) [id number] unknown) (unknown) (no (unknown) (unknown) Approved by: Vijay (units (unknown) date) Alex Brewster on unknown) 09/09/2022 at 17:01 (unknown) (no (unknown) (unknown) Bones and chest (units (unknown) date) wall: No unknown) suspicious bony lesions. Overlying soft tissues (unknown) (no (unknown) (unknown) COMPARISON: (units (un known) date) [facility], unknown) CR, XR CHEST 1V, 06/16/2022, 21:18. Morrison (unknown) (no (unknown) (unknown) : 1970 (units (unknown) date) Acct:[id number] unknown) (unknown) (no (unknown) (unknown) Dictated by: Vijay (units (unknown) date) Alex Brewster on unknown) 09/09/2022 at 17:01 (unknown) (no (unknown) (unknown) FINDINGS: (units (unkn own) date) unknown) (unknown) (no (unknown) (unknown) Hospital, CR, (units ( unknown) date) unknown) (unknown) (no (unknown) (unknown) IMPRESSION: No (units (unknown) date) acute unknown) cardiopulmonary process. (unknown) (no (unknown) (unknown) INDICATIONS: (units (u nknown) date) chest pain unknown) (unknown) (no (unknown) (unknown) [facility] (units (unknown) date) unknown) (unknown) (no (unknown) (unknown) Loc: ED (units (unkno wn) date) unknown) (unknown) (no (unknown) (unknown) Lungs and pleura: (units (unknown) date) Lungs are clear. unknown) No pleural effusions or pneumothorax. (unknown) (no (unknown) (unknown) Mediastinum: (units (u nknown) date) Mediastinal unknown) contours appear normal. Heart size is normal. (unknown) (no (unknown) (unknown) Ordering (units (unkno wn) date) Provider: unknown) Flaco Brock MD (unknown) (no (unknown) (unknown) PROCEDURE: XR (units ( unknown) date) CHEST 1V unknown) (unknown) (no (unknown) (unknown) Patient: Celeste (units (unknown) date) IIAnthony MR unknown) (unknown) (no (unknown) (unknown) Procedure: XR (units ( unknown) date) chest 1V unknown) (unknown) (no (unknown) (unknown) Signed (units (unkno wn) date) unknown) (unknown) (no (unknown) (unknown) Surgical changes (units (unknown) date) and devices: None. unknown) (unknown) (no (unknown) (unknown) TECHNIQUE: One (units (unknown) date) view of the chest unknown) was acquired. (unknown) (no (unknown) (unknown) XR CHEST 1V, (units (u nknown) date) 11/26/2021, 10:21. unknown) (unknown) (no (unknown) (unknown) XRay Report (units (un known) date) unknown) (unknown) (no (unknown) (unknown) appear (units (unkno wn) date) unknown) (unknown) (no (unknown) (unknown) unremarkable. (units ( unknown) date) unknown) Result panel 613 (unknown) (no date) (unknown) (unknown) 0.9 % (unkn own) (unknown) (no date) (unknown) (unknown) 100 /ul (unkn own) (unknown) (no date) (unknown) (unknown) 13.0 % (unkn own) (unknown) (no date) (unknown) (unknown) 1300 /ul (unkn own) (unknown) (no date) (unknown) (unknown) 14.9 % (unkn own) (unknown) (no date) (unknown) (unknown) 15.3 g/dl (unkn own) (unknown) (no date) (unknown) (unknown) 2.7 % (unkn own) (unknown) (no date) (unknown) (unknown) 200 /ul (unkn own) (unknown) (no date) (unknown) (unknown) 230 x10 3/ul (unkn own) (unknown) (no date) (unknown) (unknown) 30.3 pg (unkn own) (unknown) (no date) (unknown) (unknown) 33.2 % (unkn own) (unknown) (no date) (unknown) (unknown) 46.0 % (unkn own) (unknown) (no date) (unknown) (unknown) 5.04 x10 6/ul (unkn own) (unknown) (no date) (unknown) (unknown) 5.5 % (unkn own) (unknown) (no date) (unknown) (unknown) 500 /ul (unkn own) (unknown) (no date) (unknown) (unknown) 6400 /ul (unkn own) (unknown) (no date) (unknown) (unknown) 76.0 % (unkn own) (unknown) (no date) (unknown) (unknown) 8.4 x10 3/ul (unkn own) (unknown) (no date) (unknown) (unknown) 91.2 fl (unkn own) Result panel 614 (unknown) (no date) (unknown) (unknown) 1.0 (units unknown) (unknown) (unknown) (no date) (unknown) (unknown) 11.1 seconds (unkn own) (unknown) (no date) (unknown) (unknown) 32 seconds (unkn own) (unknown) (no date) (unknown) (unknown) 32 seconds (unkn own) Result panel 615 (unknown) (no date) (unknown) (unknown) > 60 ml/min (unkn own) (unknown) (no date) (unknown) (unknown) > 60 ml/min (unkn own) (unknown) (no date) (unknown) (unknown) 0.5 mg/dl (unkn own) (unknown) (no date) (unknown) (unknown) 0.77 mg/dl (unkn own) (unknown) (no date) (unknown) (unknown) 1.4 (units unknown) (unknown) (unknown) (no date) (unknown) (unknown) 102 mmol/l (unkn own) (unknown) (no date) (unknown) (unknown) 12 mg/dl (unkn own) (unknown) (no date) (unknown) (unknown) 138 mmol/l (unkn own) (unknown) (no date) (unknown) (unknown) 15.6 (units unknown) (unknown) (unknown) (no date) (unknown) (unknown) 163 u/l (unkn own) (unknown) (no date) (unknown) (unknown) 190 mg/dl (unkn own) (unknown) (no date) (unknown) (unknown) 190 mg/dl (unkn own) (unknown) (no date) (unknown) (unknown) 2.0 mg/dl (unkn own) (unknown) (no date) (unknown) (unknown) 29 mmol/l (unkn own) (unknown) (no date) (unknown) (unknown) 3.4 g/dl (unkn own) (unknown) (no date) (unknown) (unknown) 34 iu/l (unkn own) (unknown) (no date) (unknown) (unknown) 37 iu/l (unkn own) (unknown) (no date) (unknown) (unknown) 4.2 mmol/l (unkn own) (unknown) (no date) (unknown) (unknown) 4.7 g/dl (unkn own) (unknown) (no date) (unknown) (unknown) 51 u/l (unkn own) (unknown) (no date) (unknown) (unknown) 60 u/l (unkn own) (unknown) (no date) (unknown) (unknown) 8.1 g/dl (unkn own) (unknown) (no date) (unknown) (unknown) 9.5 mg/dl (unkn own) Result panel 616 (unknown) (no date) (unknown) (unknown) 220 ng/ml (unkn own) (unknown) (no date) (unknown) (unknown) 220 ng/ml (unkn own) Result panel 617 (unknown) (no date) (unknown) (unknown) > 60 ml/min (unkn own) (unknown) (no date) (unknown) (unknown) > 60 ml/min (unkn own) (unknown) (no date) (unknown) (unknown) < 0.012 ng/ml (unkn own) (unknown) (no date) (unknown) (unknown) < 0.012 ng/ml (unkn own) (unknown) (no date) (unknown) (unknown) 0.5 % (unkn own) (unknown) (no date) (unknown) (unknown) 0.5 mg/dl (unkn own) (unknown) (no date) (unknown) (unknown) 0.77 mg/dl (unkn own) (unknown) (no date) (unknown) (unknown) 0.77 ng/ml (unkn own) (unknown) (no date) (unknown) (unknown) 1.4 (units (unkn own) unknown) (unknown) (no date) (unknown) (unknown) 102 mmol/l (unkn own) (unknown) (no date) (unknown) (unknown) 12 mg/dl (unkn own) (unknown) (no date) (unknown) (unknown) 138 mmol/l (unkn own) (unknown) (no date) (unknown) (unknown) 15.6 (units (unkn own) unknown) (unknown) (no date) (unknown) (unknown) 163 u/l (unkn own) (unknown) (no date) (unknown) (unknown) 190 mg/dl (unkn own) (unknown) (no date) (unknown) (unknown) 190 mg/dl (unkn own) (unknown) (no date) (unknown) (unknown) 2.0 mg/dl (unkn own) (unknown) (no date) (unknown) (unknown) 29 mmol/l (unkn own) (unknown) (no date) (unknown) (unknown) 3.4 g/dl (unkn own) (unknown) (no date) (unknown) (unknown) 34 iu/l (unkn own) (unknown) (no date) (unknown) (unknown) 37 iu/l (unkn own) (unknown) (no date) (unknown) (unknown) 4.2 mmol/l (unkn own) (unknown) (no date) (unknown) (unknown) 4.7 g/dl (unkn own) (unknown) (no date) (unknown) (unknown) 51 u/l (unkn own) (unknown) (no date) (unknown) (unknown) 60 u/l (unkn own) (unknown) (no date) (unknown) (unknown) 8.1 g/dl (unkn own) (unknown) (no date) (unknown) (unknown) 9.5 mg/dl (unkn own) Result panel 618 (unknown) (no (unknown) (unknown) (no value) (units (unk nown) date) unknown) (unknown) (no (unknown) (unknown) (Lidoderm) (units (unk nown) date) unknown) (unknown) (no (unknown) (unknown) 0.5 mg PO BEDTIME (units (unknown) date) PRN (Reason: sleep) unknown) Qty: 14 0RF (unknown) (no (unknown) (unknown) 09/09/22 09/09/22 (units (unknown) date) 09/09/22 Range/Units unknown) (unknown) (no (unknown) (unknown) 09/09/22 16:03 (units (unknown) date) unknown) (unknown) (no (unknown) (unknown) 09/09/22 16:10 (units (unknown) date) unknown) (unknown) (no (unknown) (unknown) 09/09/22 16:23 (units (unknown) date) unknown) (unknown) (no (unknown) (unknown) 09/09/22 16:30 (units (unknown) date) unknown) (unknown) (no (unknown) (unknown) 09/09/22 16:49 (units (unknown) date) unknown) (unknown) (no (unknown) (unknown) 09/09/22 (units (unkno wn) date) Range/Units unknown) (unknown) (no (unknown) (unknown) 09/09/22 (units (unkno wn) date) unknown) (unknown) (no (unknown) (unknown) 1 tab PO Q8H PRN (units (unknown) date) (Reason: pain) Qty: unknown) 10 0RF (unknown) (no (unknown) (unknown) 14:10 16:10 16:10 (units (unknown) date) unknown) (unknown) (no (unknown) (unknown) 150 mg PO BID Qty: (units (unknown) date) 60 0RF unknown) (unknown) (no (unknown) (unknown) 15:54 09/09/22 (units (unknown) date) unknown) (unknown) (no (unknown) (unknown) 16:10 (units (unkno wn) date) unknown) (unknown) (no (unknown) (unknown) 16:15 09/09/22 (units (unknown) date) unknown) (unknown) (no (unknown) (unknown) 16:19 09/09/22 (units (unknown) date) unknown) (unknown) (no (unknown) (unknown) 16:19 (units (unkno wn) date) unknown) (unknown) (no (unknown) (unknown) 16:30 09/09/22 (units (unknown) date) unknown) (unknown) (no (unknown) (unknown) 16:30 (units (unkno wn) date) unknown) (unknown) (no (unknown) (unknown) 16:35 09/09/22 (units (unknown) date) unknown) (unknown) (no (unknown) (unknown) 16:35 (units (unkno wn) date) unknown) (unknown) (no (unknown) (unknown) 2 patch topical (units (unknown) date) DAILY Qty: 30 0RF unknown) (unknown) (no (unknown) (unknown) 25 mg PO BID Qty: (units (unknown) date) 180 3RF unknown) (unknown) (no (unknown) (unknown) 40 mg PO BEDTIME (units (unknown) date) Qty: 90 3RF unknown) (unknown) (no (unknown) (unknown) 50 mg PO DAILY Qty: (unit s (unknown) date) 90 3RF unknown) (unknown) (no (unknown) (unknown) 600 mg PO TID Qty: (units (unknown) date) 270 3RF unknown) (unknown) (no (unknown) (unknown) 81 mg PO DAILY (units (unknown) date) unknown) (unknown) (no (unknown) (unknown) : [id number] (units (u nknown) date) unknown) (unknown) (no (unknown) (unknown) ADD (attention (units (unknown) date) deficit disorder) unknown) (unknown) (no (unknown) (unknown) ALT (<50) IU/L (units (unknown) date) unknown) (unknown) (no (unknown) (unknown) ALT 34 (<50) IU/L (units (unknown) date) unknown) (unknown) (no (unknown) (unknown) APTT (26-36) (units (u nknown) date) SECONDS unknown) (unknown) (no (unknown) (unknown) APTT 32 (26-36) (units (unknown) date) SECONDS unknown) (unknown) (no (unknown) (unknown) AST (17-59) IU/L (units (unknown) date) unknown) (unknown) (no (unknown) (unknown) AST 37 (17-59) IU/L (unit s (unknown) date) unknown) (unknown) (no (unknown) (unknown) [facility] MD (units (unknown) date) [Primary Care unknown) Provider] (unknown) (no (unknown) (unknown) After history and (units (unknown) date) exam CBC CMP unknown) troponin EKG chest x-ray D-dimer nitro paste (unknown) (no (unknown) (unknown) Age/Sex: 52 / M (units (unknown) date) unknown) (unknown) (no (unknown) (unknown) Albumin (3.5-5.0) (units (unknown) date) g/dL unknown) (unknown) (no (unknown) (unknown) Albumin 4.7 (units (un known) date) (3.5-5.0) g/dL unknown) (unknown) (no (unknown) (unknown) Albumin/Globulin (units (unknown) date) Ratio (1.0-2.8) unknown) (unknown) (no (unknown) (unknown) Albumin/Globulin (units (unknown) date) Ratio 1.4 (1.0-2.8) unknown) (unknown) (no (unknown) (unknown) Alkaline (units (unkno wn) date) Phosphatase (38-126) unknown) U/L (unknown) (no (unknown) (unknown) Alkaline (units (unkno wn) date) Phosphatase 60 unknown) (38-126) U/L (unknown) (no (unknown) (unknown) Allergies (units (unkn own) date) unknown) (unknown) (no (unknown) (unknown) Allergy/AdvReac (units (unknown) date) Type Severity unknown) Reaction Status Date / Time (unknown) (no (unknown) (unknown) Aspirin (Aspirin 81 (unit s (unknown) date) Mg Chew Tab) 324 mg unknown) PO NOW ONE (unknown) (no (unknown) (unknown) Asthma (units (unkno wn) date) unknown) (unknown) (no (unknown) (unknown) BACK: No flank (units (unknown) date) tenderness. unknown) (unknown) (no (unknown) (unknown) BUN (9-20) mg/dL (units (unknown) date) unknown) (unknown) (no (unknown) (unknown) BUN 12 (9-20) mg/dL (unit s (unknown) date) unknown) (unknown) (no (unknown) (unknown) BUN/Creatinine (units (unknown) date) Ratio (6-22) unknown) (unknown) (no (unknown) (unknown) BUN/Creatinine (units (unknown) date) Ratio 15.6 (6-22) unknown) (unknown) (no (unknown) (unknown) Baso # (Auto) (units ( unknown) date) (0-100) /uL unknown) (unknown) (no (unknown) (unknown) Baso # (Auto) 100 (units (unknown) date) (0-100) /uL unknown) (unknown) (no (unknown) (unknown) Baso % (Auto) (0-2) (unit s (unknown) date) % unknown) (unknown) (no (unknown) (unknown) Baso % (Auto) 0.9 (units (unknown) date) (0-2) % unknown) (unknown) (no (unknown) (unknown) Blood Pressure (units (unknown) date) 176/97 H 180/103 H unknown) (unknown) (no (unknown) (unknown) Blood Pressure (units (unknown) date) 177/98 H 09/09/22 unknown) 15:54 (unknown) (no (unknown) (unknown) Blood Pressure (units (unknown) date) 177/98 H unknown) (unknown) (no (unknown) (unknown) Blood Pressure (units (unknown) date) 193/101 H unknown) (unknown) (no (unknown) (unknown) CARDIOVASCULAR: (units (unknown) date) Positive chest pain, unknown) palpitations (unknown) (no (unknown) (unknown) CARDIOVASCULAR: (units (unknown) date) Regular rate and unknown) rhythm without murmurs (unknown) (no (unknown) (unknown) CC: Chest pain (units (unknown) date) unknown) (unknown) (no (unknown) (unknown) COVID19 -Nasal (units (unknown) date) RAPID Stat unknown) (unknown) (no (unknown) (unknown) Calcium (8.4-10.2) (units (unknown) date) mg/dL unknown) (unknown) (no (unknown) (unknown) Calcium 9.5 (units (un known) date) (8.4-10.2) mg/dL unknown) (unknown) (no (unknown) (unknown) Carbon Dioxide (units (unknown) date) (22-32) mmol/L unknown) (unknown) (no (unknown) (unknown) Carbon Dioxide 29 (units (unknown) date) (22-32) mmol/L unknown) (unknown) (no (unknown) (unknown) Cervical (units (unkno wn) date) radiculopathy due to unknown) osteoarthritis of spine (unknown) (no (unknown) (unknown) Chief Complaint: (units (unknown) date) Chest Pain unknown) (unknown) (no (unknown) (unknown) Chloride (98-107) (units (unknown) date) mmol/L unknown) (unknown) (no (unknown) (unknown) Chloride 102 (units (u nknown) date) (98-107) mmol/L unknown) (unknown) (no (unknown) (unknown) Complete Blood (units (unknown) date) Count AUTO DIFF Stat unknown) (unknown) (no (unknown) (unknown) Complicating (units (u nknown) date) co-morbidities: unknown) History hypertension history of abnormal stress (unknown) (no (unknown) (unknown) Comprehensive (units ( unknown) date) Metabolic Panel Stat unknown) (unknown) (no (unknown) (unknown) Consultations: (units (unknown) date) unknown) (unknown) (no (unknown) (unknown) Coronary artery (units (unknown) date) disease unknown) (unknown) (no (unknown) (unknown) Course (units (unkno wn) date) unknown) (unknown) (no (unknown) (unknown) Creatinine (units (unk nown) date) (0.66-1.25) mg/dL unknown) (unknown) (no (unknown) (unknown) Creatinine 0.77 (units (unknown) date) (0.66-1.25) mg/dL unknown) (unknown) (no (unknown) (unknown) D Dimer Stat (units (u nknown) date) unknown) (unknown) (no (unknown) (unknown) D-Dimer (<500) (units (unknown) date) ng/ml unknown) (unknown) (no (unknown) (unknown) D-Dimer 220 (<500) (units (unknown) date) ng/ml unknown) (unknown) (no (unknown) (unknown) : 1970 (units (unknown) date) Acct:[id number] unknown) (unknown) (no (unknown) (unknown) Data collected (units (unknown) date) from: Patient unknown) (unknown) (no (unknown) (unknown) Date of Service: (units (unknown) date) 09/09/22 unknown) (unknown) (no (unknown) (unknown) Departure (units (unkn own) date) unknown) (unknown) (no (unknown) (unknown) Depression (units (unk nown) date) unknown) (unknown) (no (unknown) (unknown) Diagnosis: (units (unk nown) date) unknown) (unknown) (no (unknown) (unknown) Differential (units (u nknown) date) considered: Includes unknown) but not limited to stable angina unstable (unknown) (no (unknown) (unknown) Discharge Plan (units (unknown) date) unknown) (unknown) (no (unknown) (unknown) Discontinued (units (u nknown) date) Medications unknown) (unknown) (no (unknown) (unknown) Discussion: (units (un known) date) unknown) (unknown) (no (unknown) (unknown) Documented By: CTS (units (unknown) date) unknown) (unknown) (no (unknown) (unknown) ED Orders (units (unkn own) date) unknown) (unknown) (no (unknown) (unknown) EKG-12 Lead Stat (units (unknown) date) unknown) (unknown) (no (unknown) (unknown) ENT: Mucous (units (un known) date) membranes moist. unknown) (unknown) (no (unknown) (unknown) ER Physician: (units ( unknown) date) Flaco Brock MD unknown) (unknown) (no (unknown) (unknown) EXTREMITIES: No (units (unknown) date) gross deformities. unknown) (unknown) (no (unknown) (unknown) EYES: Pupils equal (units (unknown) date) round unknown) (unknown) (no (unknown) (unknown) Emergency Report (units (unknown) date) unknown) (unknown) (no (unknown) (unknown) Eos # (Auto) (units (u nknown) date) (0-450) /uL unknown) (unknown) (no (unknown) (unknown) Eos # (Auto) 200 (units (unknown) date) (0-450) /uL unknown) (unknown) (no (unknown) (unknown) Eos % (Auto) (2-4) (units (unknown) date) % unknown) (unknown) (no (unknown) (unknown) Eos % (Auto) 2.7 (units (unknown) date) (2-4) % unknown) (unknown) (no (unknown) (unknown) Essential (units (unkn own) date) hypertension unknown) (unknown) (no (unknown) (unknown) Estimated GFR > 60 (units (unknown) date) (>60) mL/min unknown) (unknown) (no (unknown) (unknown) Estimated GFR (>60) (unit s (unknown) date) mL/min unknown) (unknown) (no (unknown) (unknown) Exam Narrative: (units (unknown) date) unknown) (unknown) (no (unknown) (unknown) Exam documented (units (unknown) date) above, pertinent unknown) findings include: Hypertension (unknown) (no (unknown) (unknown) Exam (units (unkno wn) date) unknown) (unknown) (no (unknown) (unknown) Family History (units (unknown) date) (Reviewed 09/09/22 @ unknown) 16:59 by Flaco Brock MD) (unknown) (no (unknown) (unknown) Father Hypertension (unit s (unknown) date) unknown) (unknown) (no (unknown) (unknown) GASTROINTESTINAL: (units (unknown) date) Abdomen soft, unknown) non-tender (unknown) (no (unknown) (unknown) GASTROINTESTINAL: (units (unknown) date) negative nausea, unknown) vomiting, abdominal pain (unknown) (no (unknown) (unknown) GENERAL: in no (units (unknown) date) distress, not toxic unknown) not dyspneic (unknown) (no (unknown) (unknown) GENERAL: negative (units (unknown) date) chills, fatigue, unknown) malaise, fever, sweats. (unknown) (no (unknown) (unknown) : negative (units (u nknown) date) dysuria, frequency, unknown) hematuria (unknown) (no (unknown) (unknown) General (units (unkno wn) date) unknown) (unknown) (no (unknown) (unknown) Generalized anxiety (unit s (unknown) date) disorder with panic unknown) attacks (unknown) (no (unknown) (unknown) Globulin (1.7-4.1) (units (unknown) date) g/dL unknown) (unknown) (no (unknown) (unknown) Globulin 3.4 (units (u nknown) date) (1.7-4.1) g/dL unknown) (unknown) (no (unknown) (unknown) Glucose (70-100) (units (unknown) date) mg/dL unknown) (unknown) (no (unknown) (unknown) Glucose 190 H (units ( unknown) date) (70-100) mg/dL unknown) (unknown) (no (unknown) (unknown) HEAD: (units (unkno wn) date) Normocephalic. unknown) (unknown) (no (unknown) (unknown) HEENT: negative (units (unknown) date) sinus pain, ear unknown) pain, sore throat (unknown) (no (unknown) (unknown) HPI - Chest Pain (units (unknown) date) unknown) (unknown) (no (unknown) (unknown) HPI narrative: (units (unknown) date) unknown) (unknown) (no (unknown) (unknown) Hct (41-53) % (units ( unknown) date) unknown) (unknown) (no (unknown) (unknown) Hct 46.0 (41-53) % (units (unknown) date) unknown) (unknown) (no (unknown) (unknown) Herniated (units (unkn own) date) intervertebral disc unknown) of lumbar spine (unknown) (no (unknown) (unknown) Hgb (13.5-17.5) (units (unknown) date) g/dL unknown) (unknown) (no (unknown) (unknown) Hgb 15.3 (units (unkno wn) date) (13.5-17.5) g/dL unknown) (unknown) (no (unknown) (unknown) History of Present (units (unknown) date) Illness unknown) (unknown) (no (unknown) (unknown) Home Medications (units (unknown) date) unknown) (unknown) (no (unknown) (unknown) Hx of cervical (units (unknown) date) discectomy (-2013) unknown) (unknown) (no (unknown) (unknown) Hyperlipidemia (units (unknown) date) unknown) (unknown) (no (unknown) (unknown) Hypertension (units (u nknown) date) unknown) (unknown) (no (unknown) (unknown) INR (0.9-1.3) (units ( unknown) date) unknown) (unknown) (no (unknown) (unknown) INR 1.0 (0.9-1.3) (units (unknown) date) unknown) (unknown) (no (unknown) (unknown) Imaging studies (units (unknown) date) independently unknown) reviewed: Chest x-ray no acute process (unknown) (no (unknown) (unknown) Independently (units ( unknown) date) reviewed EKG as unknown) above sinus tachycardia rate [address] elevation (unknown) (no (unknown) (unknown) Initial Vital Signs (unit s (unknown) date) unknown) (unknown) (no (unknown) (unknown) Initial Vital (units ( unknown) date) Signs: unknown) (unknown) (no (unknown) (unknown) [facility] (units (unknown) date) [address] [place] [address] unknown) [place] [address] (unknown) (no (unknown) (unknown) Lab Data (units (unkno wn) date) unknown) (unknown) (no (unknown) (unknown) Lab Results (units (un known) date) unknown) (unknown) (no (unknown) (unknown) Lab Test results (units (unknown) date) independently unknown) reviewed as above. Pertinent findings: Troponin (unknown) (no (unknown) (unknown) Labs: (units (unkno wn) date) unknown) (unknown) (no (unknown) (unknown) Last Admin: (units (un known) date) 09/09/22 16:16 Dose: unknown) Not Given (unknown) (no (unknown) (unknown) Limitations: no (units (unknown) date) limitations unknown) (unknown) (no (unknown) (unknown) Lipase (23-300) U/L (unit s (unknown) date) unknown) (unknown) (no (unknown) (unknown) Lipase 51 (23-300) (units (unknown) date) U/L unknown) (unknown) (no (unknown) (unknown) Lipase Stat (units (un known) date) unknown) (unknown) (no (unknown) (unknown) Lymph # (Auto) (units (unknown) date) (9998-3117) /uL unknown) (unknown) (no (unknown) (unknown) Lymph # (Auto) 1300 (unit s (unknown) date) (4012-4279) /uL unknown) (unknown) (no (unknown) (unknown) Lymph % (Auto) (units (unknown) date) (25-40) % unknown) (unknown) (no (unknown) (unknown) Lymph % (Auto) 14.9 (unit s (unknown) date) L (25-40) % unknown) (unknown) (no (unknown) (unknown) MCH (26-34) PG (units (unknown) date) unknown) (unknown) (no (unknown) (unknown) MCH 30.3 (26-34) PG (unit s (unknown) date) unknown) (unknown) (no (unknown) (unknown) MCHC (30-36) % (units (unknown) date) unknown) (unknown) (no (unknown) (unknown) MCHC 33.2 (30-36) % (unit s (unknown) date) unknown) (unknown) (no (unknown) (unknown) MCV (80-100) fL (units (unknown) date) unknown) (unknown) (no (unknown) (unknown) MCV 91.2 (80-100) (units (unknown) date) fL unknown) (unknown) (no (unknown) (unknown) MDM - Chest Pain (units (unknown) date) unknown) (unknown) (no (unknown) (unknown) MDM Narrative (units ( unknown) date) unknown) (unknown) (no (unknown) (unknown) MDM (units (unkno wn) date) unknown) (unknown) (no (unknown) (unknown) MUSCULOSKELETAL: (units (unknown) date) negative muscle or unknown) bony pain (unknown) (no (unknown) (unknown) Magnesium (1.6-2.3) (unit s (unknown) date) mg/dL unknown) (unknown) (no (unknown) (unknown) Magnesium 2.0 (units ( unknown) date) (1.6-2.3) mg/dL unknown) (unknown) (no (unknown) (unknown) Magnesium Stat (units (unknown) date) unknown) (unknown) (no (unknown) (unknown) Medical History (units (unknown) date) (Reviewed 09/09/22 @ unknown) 16:59 by Flaco Brock MD) (unknown) (no (unknown) (unknown) Medical decision (units (unknown) date) making narrative: unknown) (unknown) (no (unknown) (unknown) Medical records (units (unknown) date) reviewed: Stress unknown) test from June 2022 (unknown) (no (unknown) (unknown) Medication (units (unk nown) date) Instructions unknown) Recorded Confirmed (unknown) (no (unknown) (unknown) Medication (units (unk nown) date) Instructions unknown) Recorded (unknown) (no (unknown) (unknown) Mode of arrival: (units (unknown) date) Ambulatory unknown) (unknown) (no (unknown) (unknown) [place] # (Auto) (units ( unknown) date) (0-900) /uL unknown) (unknown) (no (unknown) (unknown) [place] # (Auto) 500 (units (unknown) date) (0-900) /uL unknown) (unknown) (no (unknown) (unknown) [place] % (Auto) (units ( unknown) date) (3-14) % unknown) (unknown) (no (unknown) (unknown) [place]osh % (Auto) 5.5 (units (unknown) date) (3-14) % unknown) (unknown) (no (unknown) (unknown) Morphine Sulfate (units (unknown) date) (Morphine 4 Mg/Ml unknown) Inj) 4 mg IV NOW ONE (unknown) (no (unknown) (unknown) Mother Diabetes (units (unknown) date) mellitus unknown) (unknown) (no (unknown) (unknown) NECK: Trachea (units ( unknown) date) midline. unknown) (unknown) (no (unknown) (unknown) NEURO: AOx4. (units (u nknown) date) unknown) (unknown) (no (unknown) (unknown) NEUROLOGIC: (units (un known) date) negative weakness, unknown) numbness (unknown) (no (unknown) (unknown) Narrative (units (unkn own) date) unknown) (unknown) (no (unknown) (unknown) Narrative: (units (unk nown) date) unknown) (unknown) (no (unknown) (unknown) Neut # (Auto) (units ( unknown) date) (9886-0977) /uL unknown) (unknown) (no (unknown) (unknown) Neut # (Auto) 6400 (units (unknown) date) (7289-9603) /uL unknown) (unknown) (no (unknown) (unknown) Neut % (Auto) (units ( unknown) date) (50-75) % unknown) (unknown) (no (unknown) (unknown) Neut % (Auto) 76.0 (units (unknown) date) H (50-75) % unknown) (unknown) (no (unknown) (unknown) Nitroglycerin (units ( unknown) date) (Nitroglycerin Oint unknown) 1 Inch/Gm Oint...G.) 1 inch TOP NOW ONE (unknown) (no (unknown) (unknown) No Action (units (unkn own) date) unknown) (unknown) (no (unknown) (unknown) Ondansetron HCl (units (unknown) date) (Ondansetron 4 Mg/2 unknown) Ml Inj) 4 mg IV NOW ONE (unknown) (no (unknown) (unknown) Opiate addiction (units (unknown) date) unknown) (unknown) (no (unknown) (unknown) Ordered: (units (unkno wn) date) unknown) (unknown) (no (unknown) (unknown) Orders (units (unkno wn) date) unknown) (unknown) (no (unknown) (unknown) Oxygen Delivery (units (unknown) date) Method Room Air unknown) 09/09/22 15:54 (unknown) (no (unknown) (unknown) Oxygen Delivery (units (unknown) date) Method Room Air unknown) (unknown) (no (unknown) (unknown) Oxygen Delivery (units (unknown) date) Method unknown) (unknown) (no (unknown) (unknown) PSYCH: Not anxious, (unit s (unknown) date) is cooperative unknown) (unknown) (no (unknown) (unknown) PT (10.1-12.7) (units (unknown) date) SECONDS unknown) (unknown) (no (unknown) (unknown) PT 11.1 (10.1-12.7) (unit s (unknown) date) SECONDS unknown) (unknown) (no (unknown) (unknown) PTT Partial (units (un known) date) Thromboplastin Dustin unknown) Stat 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 unknown) (unknown) (no (unknown) (unknown) Patient History (units (unknown) date) unknown) (unknown) (no (unknown) (unknown) Patient here for (units (unknown) date) nonreproducible unknown) left-sided chest pain that started this (unknown) (no (unknown) (unknown) Patient: (units (unknown) date) IIAnthony MR# unknown) (unknown) (no (unknown) (unknown) Peripheral (units (unk nown) date) neuropathy unknown) (unknown) (no (unknown) (unknown) Plt Count (150-400) (unit s (unknown) date) X103/uL unknown) (unknown) (no (unknown) (unknown) Plt Count 230 (units ( unknown) date) (150-400) X103/uL unknown) (unknown) (no (unknown) (unknown) Potassium (3.4-5.1) (unit s (unknown) date) mmol/L unknown) (unknown) (no (unknown) (unknown) Potassium 4.2 (units ( unknown) date) (3.4-5.1) mmol/L unknown) (unknown) (no (unknown) (unknown) Prescriptions: (units (unknown) date) unknown) (unknown) (no (unknown) (unknown) Previous Rx's (units ( unknown) date) unknown) (unknown) (no (unknown) (unknown) Prothrombin Time (units (unknown) date) INR Stat unknown) (unknown) (no (unknown) (unknown) Pulse Oximetry 97 (units (unknown) date) unknown) (unknown) (no (unknown) (unknown) Pulse Oximetry 98 (units (unknown) date) 09/09/22 15:54 unknown) (unknown) (no (unknown) (unknown) Pulse Oximetry 98 (units (unknown) date) 95 96 unknown) (unknown) (no (unknown) (unknown) Pulse Rate 105 H (units (unknown) date) unknown) (unknown) (no (unknown) (unknown) Pulse Rate 106 H (units (unknown) date) unknown) (unknown) (no (unknown) (unknown) Pulse Rate 119 H (units (unknown) date) 09/09/22 15:54 unknown) (unknown) (no (unknown) (unknown) Pulse Rate 119 H (units (unknown) date) 112 H 110 H unknown) (unknown) (no (unknown) (unknown) RBC (4.5-5.9) (units ( unknown) date) X106/uL unknown) (unknown) (no (unknown) (unknown) RBC 5.04 (4.5-5.9) (units (unknown) date) X106/uL unknown) (unknown) (no (unknown) (unknown) RDW (11.6-14.8) % (units (unknown) date) unknown) (unknown) (no (unknown) (unknown) RDW 13.0 (units (unkno wn) date) (11.6-14.8) % unknown) (unknown) (no (unknown) (unknown) REACTION' (units (unkn own) date) unknown) (unknown) (no (unknown) (unknown) RESPIRATORY: Clear (units (unknown) date) to auscultation. unknown) Breath sounds equal bilaterally. No wheezes, (unknown) (no (unknown) (unknown) RESPIRATORY: (units (u nknown) date) negative dyspnea, unknown) cough (unknown) (no (unknown) (unknown) RLS (restless legs (units (unknown) date) syndrome) unknown) (unknown) (no (unknown) (unknown) ROS Unobtainable: (units (unknown) date) All systems reviewed unknown) + are unremarkable except as noted in HPI (unknown) (no (unknown) (unknown) Re-evaluations: (units (unknown) date) unknown) (unknown) (no (unknown) (unknown) Referrals: (units (unk nown) date) unknown) (unknown) (no (unknown) (unknown) Related Data (units (u nknown) date) unknown) (unknown) (no (unknown) (unknown) Respiratory Rate 18 (unit s (unknown) date) 09/09/22 15:54 unknown) (unknown) (no (unknown) (unknown) Respiratory Rate 18 (unit s (unknown) date) 19 unknown) (unknown) (no (unknown) (unknown) Respiratory Rate 20 (unit s (unknown) date) unknown) (unknown) (no (unknown) (unknown) Respiratory Rate (units (unknown) date) unknown) (unknown) (no (unknown) (unknown) Review of Systems (units (unknown) date) unknown) (unknown) (no (unknown) (unknown) Rx Instructions: (units (unknown) date) unknown) (unknown) (no (unknown) (unknown) SKIN: Warm and dry (units (unknown) date) unknown) (unknown) (no (unknown) (unknown) SKIN: negative (units (unknown) date) rash, skin lesions unknown) (unknown) (no (unknown) (unknown) Signed By: (units (unk nown) date) unknown) (unknown) (no (unknown) (unknown) Smoking Status: (units (unknown) date) Current every day unknown) smoker (unknown) (no (unknown) (unknown) Social History (units (unknown) date) (Reviewed 09/09/22 @ unknown) 16:59 by Flaco Brock MD) (unknown) (no (unknown) (unknown) Sodium (137-145) (units (unknown) date) mmol/L unknown) (unknown) (no (unknown) (unknown) Sodium 138 (units (unk nown) date) (137-145) mmol/L unknown) (unknown) (no (unknown) (unknown) Source: patient (units (unknown) date) unknown) (unknown) (no (unknown) (unknown) Spinal stenosis of (units (unknown) date) lumbar region with unknown) neurogenic claudication (unknown) (no (unknown) (unknown) Spondylolisthesis (units (unknown) date) of lumbar region unknown) (unknown) (no (unknown) (unknown) Stated Complaint: (units (unknown) date) neck and chest pain unknown) (unknown) (no (unknown) (unknown) Stenosis of artery (units (unknown) date) unknown) (unknown) (no (unknown) (unknown) Stop: 09/09/22 (units (unknown) date) 16:04 unknown) (unknown) (no (unknown) (unknown) Stop: 09/09/22 (units (unknown) date) 16:56 unknown) (unknown) (no (unknown) (unknown) Substance Use Type: (unit s (unknown) date) does not use unknown) (unknown) (no (unknown) (unknown) Surgical History (units (unknown) date) (Reviewed 09/09/22 @ unknown) 16:59 by Flaco Brock MD) (unknown) (no (unknown) (unknown) Temperature 98.1 F (units (unknown) date) 09/09/22 15:54 unknown) (unknown) (no (unknown) (unknown) Temperature 98.1 F (units (unknown) date) unknown) (unknown) (no (unknown) (unknown) Temperature (units (un known) date) unknown) (unknown) (no (unknown) (unknown) Time Seen by (units (u nknown) date) Provider: 09/09/22 unknown) 16:22 (unknown) (no (unknown) (unknown) Total Bilirubin (units (unknown) date) (0.2-1.3) mg/dL unknown) (unknown) (no (unknown) (unknown) Total Bilirubin 0.5 (unit s (unknown) date) (0.2-1.3) mg/dL unknown) (unknown) (no (unknown) (unknown) Total Creatine (units (unknown) date) Kinase (55-170) U/L unknown) (unknown) (no (unknown) (unknown) Total Creatine (units (unknown) date) Kinase 163 (55-170) unknown) U/L (unknown) (no (unknown) (unknown) Total Protein (units ( unknown) date) (6.3-8.2) g/dL unknown) (unknown) (no (unknown) (unknown) Total Protein 8.1 (units (unknown) date) (6.3-8.2) g/dL unknown) (unknown) (no (unknown) (unknown) Treatments: (units (un known) date) unknown) (unknown) (no (unknown) (unknown) Troponin + CK (units ( unknown) date) Cardiac Panel Stat unknown) (unknown) (no (unknown) (unknown) Urine Drug Screen, (units (unknown) date) Rapid Stat unknown) (unknown) (no (unknown) (unknown) Vital Signs - 8 hr (units (unknown) date) unknown) (unknown) (no (unknown) (unknown) Vital Signs (units (un known) date) unknown) (unknown) (no (unknown) (unknown) Vital signs: (units (u nknown) date) unknown) (unknown) (no (unknown) (unknown) Vitamin D (units (unkn own) date) deficiency unknown) (unknown) (no (unknown) (unknown) WBC (4.5-11.0) (units (unknown) date) X103/uL unknown) (unknown) (no (unknown) (unknown) WBC 8.4 (4.5-11.0) (units (unknown) date) X103/uL unknown) (unknown) (no (unknown) (unknown) XR chest 1V Stat (units (unknown) date) unknown) (unknown) (no (unknown) (unknown) [Embedded Image Not (unit s (unknown) date) Available] unknown) (unknown) (no (unknown) (unknown) admitted here. Was (units (unknown) date) recommended to have unknown) a chemical stress test and (unknown) (no (unknown) (unknown) alcohol intake (units (unknown) date) frequency: a few unknown) times a month (unknown) (no (unknown) (unknown) alcohol intake: (units (unknown) date) never unknown) (unknown) (no (unknown) (unknown) alprazolam 0.5 mg (units (unknown) date) tablet 0.5 mg PO unknown) BEDTIME PRN sleep #14 05/20/22 (unknown) (no (unknown) (unknown) alprazolam 0.5 mg (units (unknown) date) tablet unknown) (unknown) (no (unknown) (unknown) and below (units (unkn own) date) unknown) (unknown) (no (unknown) (unknown) angina DE non-STEMI (unit s (unknown) date) PE hypertensive unknown) urgency (unknown) (no (unknown) (unknown) aspirin 81 mg (units ( unknown) date) tablet,delayed 81 mg unknown) PO DAILY 04/11/22 05/20/22 (unknown) (no (unknown) (unknown) aspirin 81 mg (units ( unknown) date) tablet,delayed unknown) release (DR/EC) (unknown) (no (unknown) (unknown) aspirin ordered (units (unknown) date) unknown) (unknown) (no (unknown) (unknown) atorvastatin 40 mg (units (unknown) date) tablet 40 mg PO unknown) BEDTIME #90 tabs 04/11/22 (unknown) (no (unknown) (unknown) atorvastatin 40 mg (units (unknown) date) tablet unknown) (unknown) (no (unknown) (unknown) bupropion HCl 150 (units (unknown) date) mg 24 hr tablet, 150 unknown) mg PO BID #60 tabs 05/20/22 (unknown) (no (unknown) (unknown) bupropion HCl 150 (units (unknown) date) mg tablet extended unknown) release 24 hr (unknown) (no (unknown) (unknown) droperidol (units (unk nown) date) [DROPERIDOL] Allergy unknown) Mild 'COGENIC Verified 07/12/22 14:01 (unknown) (no (unknown) (unknown) echocardiogram (units (unknown) date) done. It has taken a unknown) while for this order to be organized and it (unknown) (no (unknown) (unknown) extended release (units (unknown) date) unknown) (unknown) (no (unknown) (unknown) for high blood (units (unknown) date) pressure. No unknown) diaphoresis no nausea no syncope, no dyspnea (unknown) (no (unknown) (unknown) gabapentin 600 mg (units (unknown) date) tablet 600 mg PO TID unknown) #270 tabs 05/20/22 (unknown) (no (unknown) (unknown) gabapentin 600 mg (units (unknown) date) tablet unknown) (unknown) (no (unknown) (unknown) household members: (units (unknown) date) family unknown) (unknown) (no (unknown) (unknown) is scheduled for (units (unknown) date) next Thursday. Patient unknown) had abnormal heart catheterization as (unknown) (no (unknown) (unknown) leave on most (units ( unknown) date) painful area for up unknown) to 12 hrs (unknown) (no (unknown) (unknown) less than 0.012 (units (unknown) date) CK-MB 0.77 D-dimer unknown) 220 (unknown) (no (unknown) (unknown) lidocaine 5 % (units ( unknown) date) topical patch 2 unknown) patch topical DAILY #30 ea 07/12/22 (unknown) (no (unknown) (unknown) lidocaine (units (unkn own) date) [Lidoderm] 5 % unknown) adhesive patch,medicated (unknown) (no (unknown) (unknown) metoprolol tartrate (unit s (unknown) date) 25 mg tablet 25 mg unknown) PO BID #180 tabs 04/09/22 (unknown) (no (unknown) (unknown) metoprolol tartrate (unit s (unknown) date) 25 mg tablet unknown) (unknown) (no (unknown) (unknown) mg tablet (units (unkn own) date) (Percocet) unknown) (unknown) (no (unknown) (unknown) morning. Patient (units (unknown) date) has baseline chronic unknown) cervical degenerative disc disease pain (unknown) (no (unknown) (unknown) new. Patient has (units (unknown) date) had abnormal unknown) exercise stress test June 2022 when he was (unknown) (no (unknown) (unknown) oxycodone-acetamino (unit s (unknown) date) phen 5 mg-325 1 tab unknown) PO Q8H PRN pain #10 tabs 07/12/22 (unknown) (no (unknown) (unknown) oxycodone-acetamino (unit s (unknown) date) phen [Percocet] unknown) 5-325 mg tablet (unknown) (no (unknown) (unknown) rales, or rhonchi. (units (unknown) date) unknown) (unknown) (no (unknown) (unknown) release (units (unkno wn) date) unknown) (unknown) (no (unknown) (unknown) sertraline 50 mg (units (unknown) date) tablet 50 mg PO unknown) DAILY #90 tabs 04/09/22 (unknown) (no (unknown) (unknown) sertraline 50 mg (units (unknown) date) tablet unknown) (unknown) (no (unknown) (unknown) tabs (units (unkno wn) date) unknown) (unknown) (no (unknown) (unknown) test history of (units (unknown) date) abnormal heart unknown) catheterization (unknown) (no (unknown) (unknown) that radiates to (units (unknown) date) his left arm which unknown) is not new. However the left chest pain is (unknown) (no (unknown) (unknown) tobacco type: (units ( unknown) date) cigarettes unknown) (unknown) (no (unknown) (unknown) well in 2018. Blood (unit s (unknown) date) pressure and heart unknown) rate noted. Patient is on metoprolol Result panel 619 (unknown) (no date) (unknown) (unknown) Negative (units (unkn own) unknown) (unknown) (no date) (unknown) (unknown) Negative (units (unkn own) unknown) Result panel 620 (unknown) (no (unknown) (unknown) (no value) (units (unk nown) date) unknown) (unknown) (no (unknown) (unknown) (Lidoderm) (units (unk nown) date) unknown) (unknown) (no (unknown) (unknown) 0.5 mg PO BEDTIME (units (unknown) date) PRN (Reason: sleep) unknown) Qty: 14 0RF (unknown) (no (unknown) (unknown) 09/09/22 09/09/22 (units (unknown) date) 09/09/22 Range/Units unknown) (unknown) (no (unknown) (unknown) 09/09/22 09/09/22 (units (unknown) date) Range/Units unknown) (unknown) (no (unknown) (unknown) 09/09/22 16:03 (units (unknown) date) unknown) (unknown) (no (unknown) (unknown) 09/09/22 16:10 (units (unknown) date) unknown) (unknown) (no (unknown) (unknown) 09/09/22 16:23 (units (unknown) date) unknown) (unknown) (no (unknown) (unknown) 09/09/22 16:30 (units (unknown) date) unknown) (unknown) (no (unknown) (unknown) 09/09/22 16:49 (units (unknown) date) unknown) (unknown) (no (unknown) (unknown) 09/09/22 (units (unkno wn) date) unknown) (unknown) (no (unknown) (unknown) 1 tab PO Q8H PRN (units (unknown) date) (Reason: pain) Qty: unknown) 10 0RF (unknown) (no (unknown) (unknown) 14:10 16:10 16:10 (units (unknown) date) unknown) (unknown) (no (unknown) (unknown) 150 mg PO BID Qty: (units (unknown) date) 60 0RF unknown) (unknown) (no (unknown) (unknown) 15:54 09/09/22 (units (unknown) date) unknown) (unknown) (no (unknown) (unknown) 16:10 16:30 (units (un known) date) unknown) (unknown) (no (unknown) (unknown) 16:15 09/09/22 (units (unknown) date) unknown) (unknown) (no (unknown) (unknown) 16:19 09/09/22 (units (unknown) date) unknown) (unknown) (no (unknown) (unknown) 16:19 (units (unkno wn) date) unknown) (unknown) (no (unknown) (unknown) 16:30 09/09/22 (units (unknown) date) unknown) (unknown) (no (unknown) (unknown) 16:30 (units (unkno wn) date) unknown) (unknown) (no (unknown) (unknown) 16:35 09/09/22 (units (unknown) date) unknown) (unknown) (no (unknown) (unknown) 17:05 (units (unkno wn) date) unknown) (unknown) (no (unknown) (unknown) 2 patch topical (units (unknown) date) DAILY Qty: 30 0RF unknown) (unknown) (no (unknown) (unknown) 25 mg PO BID Qty: (units (unknown) date) 180 3RF unknown) (unknown) (no (unknown) (unknown) 40 mg PO BEDTIME (units (unknown) date) Qty: 90 3RF unknown) (unknown) (no (unknown) (unknown) 50 mg PO DAILY Qty: (unit s (unknown) date) 90 3RF unknown) (unknown) (no (unknown) (unknown) 600 mg PO TID Qty: (units (unknown) date) 270 3RF unknown) (unknown) (no (unknown) (unknown) 81 mg PO DAILY (units (unknown) date) unknown) (unknown) (no (unknown) (unknown) : [id number] (units (u nknown) date) unknown) (unknown) (no (unknown) (unknown) ADD (attention (units (unknown) date) deficit disorder) unknown) (unknown) (no (unknown) (unknown) ALT (<50) IU/L (units (unknown) date) unknown) (unknown) (no (unknown) (unknown) ALT 34 (<50) IU/L (units (unknown) date) unknown) (unknown) (no (unknown) (unknown) APTT (26-36) (units (u nknown) date) SECONDS unknown) (unknown) (no (unknown) (unknown) APTT 32 (26-36) (units (unknown) date) SECONDS unknown) (unknown) (no (unknown) (unknown) AST (17-59) IU/L (units (unknown) date) unknown) (unknown) (no (unknown) (unknown) AST 37 (17-59) IU/L (unit s (unknown) date) unknown) (unknown) (no (unknown) (unknown) [facility] MD (units (unknown) date) [Primary Care unknown) Provider] (unknown) (no (unknown) (unknown) After history and (units (unknown) date) exam CBC CMP unknown) troponin EKG chest x-ray D-dimer nitro paste (unknown) (no (unknown) (unknown) Age/Sex: 52 / M (units (unknown) date) unknown) (unknown) (no (unknown) (unknown) Albumin (3.5-5.0) (units (unknown) date) g/dL unknown) (unknown) (no (unknown) (unknown) Albumin 4.7 (units (un known) date) (3.5-5.0) g/dL unknown) (unknown) (no (unknown) (unknown) Albumin/Globulin (units (unknown) date) Ratio (1.0-2.8) unknown) (unknown) (no (unknown) (unknown) Albumin/Globulin (units (unknown) date) Ratio 1.4 (1.0-2.8) unknown) (unknown) (no (unknown) (unknown) Alkaline (units (unkno wn) date) Phosphatase (38-126) unknown) U/L (unknown) (no (unknown) (unknown) Alkaline (units (unkno wn) date) Phosphatase 60 unknown) (38-126) U/L (unknown) (no (unknown) (unknown) Allergies (units (unkn own) date) unknown) (unknown) (no (unknown) (unknown) Allergy/AdvReac (units (unknown) date) Type Severity unknown) Reaction Status Date / Time (unknown) (no (unknown) (unknown) Aspirin (Aspirin 81 (unit s (unknown) date) Mg Chew Tab) 324 mg unknown) PO NOW ONE (unknown) (no (unknown) (unknown) Asthma (units (unkno wn) date) unknown) (unknown) (no (unknown) (unknown) BACK: No flank (units (unknown) date) tenderness. unknown) (unknown) (no (unknown) (unknown) BUN (9-20) mg/dL (units (unknown) date) unknown) (unknown) (no (unknown) (unknown) BUN 12 (9-20) mg/dL (unit s (unknown) date) unknown) (unknown) (no (unknown) (unknown) BUN/Creatinine (units (unknown) date) Ratio (6-22) unknown) (unknown) (no (unknown) (unknown) BUN/Creatinine (units (unknown) date) Ratio 15.6 (6-22) unknown) (unknown) (no (unknown) (unknown) Baso # (Auto) (units ( unknown) date) (0-100) /uL unknown) (unknown) (no (unknown) (unknown) Baso # (Auto) 100 (units (unknown) date) (0-100) /uL unknown) (unknown) (no (unknown) (unknown) Baso % (Auto) (0-2) (unit s (unknown) date) % unknown) (unknown) (no (unknown) (unknown) Baso % (Auto) 0.9 (units (unknown) date) (0-2) % unknown) (unknown) (no (unknown) (unknown) Blood Pressure (units (unknown) date) 176/97 H 180/103 H unknown) (unknown) (no (unknown) (unknown) Blood Pressure (units (unknown) date) 177/98 H 09/09/22 unknown) 15:54 (unknown) (no (unknown) (unknown) Blood Pressure (units (unknown) date) 177/98 H unknown) (unknown) (no (unknown) (unknown) Blood Pressure (units (unknown) date) 193/101 H 190/108 H unknown) (unknown) (no (unknown) (unknown) CARDIOVASCULAR: (units (unknown) date) Positive chest pain, unknown) palpitations (unknown) (no (unknown) (unknown) CARDIOVASCULAR: (units (unknown) date) Regular rate and unknown) rhythm without murmurs (unknown) (no (unknown) (unknown) CC: Chest pain (units (unknown) date) unknown) (unknown) (no (unknown) (unknown) CK-MB (CK-2) (units (u nknown) date) (<2.37) ng/mL unknown) (unknown) (no (unknown) (unknown) CK-MB (CK-2) 0.77 (units (unknown) date) (<2.37) ng/mL unknown) (unknown) (no (unknown) (unknown) CK-MB (CK-2) Rel (units (unknown) date) Index (1.5-5.0) % unknown) (unknown) (no (unknown) (unknown) CK-MB (CK-2) Rel (units (unknown) date) Index 0.5 L unknown) (1.5-5.0) % (unknown) (no (unknown) (unknown) COVID19 -Nasal (units (unknown) date) RAPID Stat unknown) (unknown) (no (unknown) (unknown) Calcium (8.4-10.2) (units (unknown) date) mg/dL unknown) (unknown) (no (unknown) (unknown) Calcium 9.5 (units (un known) date) (8.4-10.2) mg/dL unknown) (unknown) (no (unknown) (unknown) Carbon Dioxide (units (unknown) date) (22-32) mmol/L unknown) (unknown) (no (unknown) (unknown) Carbon Dioxide 29 (units (unknown) date) (22-32) mmol/L unknown) (unknown) (no (unknown) (unknown) Cervical (units (unkno wn) date) radiculopathy due to unknown) osteoarthritis of spine (unknown) (no (unknown) (unknown) Chest pain (units (unk nown) date) unknown) (unknown) (no (unknown) (unknown) Chief Complaint: (units (unknown) date) Chest Pain unknown) (unknown) (no (unknown) (unknown) Chloride (98-107) (units (unknown) date) mmol/L unknown) (unknown) (no (unknown) (unknown) Chloride 102 (units (u nknown) date) (98-107) mmol/L unknown) (unknown) (no (unknown) (unknown) Clinical (units (unkno wn) date) Impression: unknown) (unknown) (no (unknown) (unknown) Complete Blood (units (unknown) date) Count AUTO DIFF Stat unknown) (unknown) (no (unknown) (unknown) Complicating (units (u nknown) date) co-morbidities: unknown) History hypertension history of abnormal stress (unknown) (no (unknown) (unknown) Comprehensive (units ( unknown) date) Metabolic Panel Stat unknown) (unknown) (no (unknown) (unknown) Consultations: 5:26 (unit s (unknown) date) p.m. unknown) (unknown) (no (unknown) (unknown) Coronary artery (units (unknown) date) disease unknown) (unknown) (no (unknown) (unknown) Course (units (unkno wn) date) unknown) (unknown) (no (unknown) (unknown) Creatinine (units (unk nown) date) (0.66-1.25) mg/dL unknown) (unknown) (no (unknown) (unknown) Creatinine 0.77 (units (unknown) date) (0.66-1.25) mg/dL unknown) (unknown) (no (unknown) (unknown) D Dimer Stat (units (u nknown) date) unknown) (unknown) (no (unknown) (unknown) D-Dimer (<500) (units (unknown) date) ng/ml unknown) (unknown) (no (unknown) (unknown) D-Dimer 220 (<500) (units (unknown) date) ng/ml unknown) (unknown) (no (unknown) (unknown) : 1970 (units (unknown) date) Acct:[id number] unknown) (unknown) (no (unknown) (unknown) Data collected (units (unknown) date) from: Patient unknown) (unknown) (no (unknown) (unknown) Date of Service: (units (unknown) date) 09/09/22 unknown) (unknown) (no (unknown) (unknown) Departure (units (unkn own) date) unknown) (unknown) (no (unknown) (unknown) Depression (units (unk nown) date) unknown) (unknown) (no (unknown) (unknown) Diagnosis: (units (unk nown) date) unknown) (unknown) (no (unknown) (unknown) Differential (units (u nknown) date) considered: Includes unknown) but not limited to stable angina unstable (unknown) (no (unknown) (unknown) Discharge Plan (units (unknown) date) unknown) (unknown) (no (unknown) (unknown) Discontinued (units (u nknown) date) Medications unknown) (unknown) (no (unknown) (unknown) Discussion: (units (un known) date) unknown) (unknown) (no (unknown) (unknown) Documented By: CTS (units (unknown) date) unknown) (unknown) (no (unknown) (unknown) ED Orders (units (unkn own) date) unknown) (unknown) (no (unknown) (unknown) EKG-12 Lead Stat (units (unknown) date) unknown) (unknown) (no (unknown) (unknown) ENT: Mucous (units (un known) date) membranes moist. unknown) (unknown) (no (unknown) (unknown) ER Physician: (units ( unknown) date) Flaco Brock MD unknown) (unknown) (no (unknown) (unknown) EXTREMITIES: No (units (unknown) date) gross deformities. unknown) (unknown) (no (unknown) (unknown) EYES: Pupils equal (units (unknown) date) round unknown) (unknown) (no (unknown) (unknown) Emergency Report (units (unknown) date) unknown) (unknown) (no (unknown) (unknown) Eos # (Auto) (units (u nknown) date) (0-450) /uL unknown) (unknown) (no (unknown) (unknown) Eos # (Auto) 200 (units (unknown) date) (0-450) /uL unknown) (unknown) (no (unknown) (unknown) Eos % (Auto) (2-4) (units (unknown) date) % unknown) (unknown) (no (unknown) (unknown) Eos % (Auto) 2.7 (units (unknown) date) (2-4) % unknown) (unknown) (no (unknown) (unknown) Essential (units (unkn own) date) hypertension unknown) (unknown) (no (unknown) (unknown) Estimated GFR > 60 (units (unknown) date) (>60) mL/min unknown) (unknown) (no (unknown) (unknown) Estimated GFR (>60) (unit s (unknown) date) mL/min unknown) (unknown) (no (unknown) (unknown) Exam Narrative: (units (unknown) date) unknown) (unknown) (no (unknown) (unknown) Exam documented (units (unknown) date) above, pertinent unknown) findings include: Hypertension (unknown) (no (unknown) (unknown) Exam (units (unkno wn) date) unknown) (unknown) (no (unknown) (unknown) Family History (units (unknown) date) (Reviewed 09/09/22 @ unknown) 16:59 by Flaco Brock MD) (unknown) (no (unknown) (unknown) Father Hypertension (unit s (unknown) date) unknown) (unknown) (no (unknown) (unknown) GASTROINTESTINAL: (units (unknown) date) Abdomen soft, unknown) non-tender (unknown) (no (unknown) (unknown) GASTROINTESTINAL: (units (unknown) date) negative nausea, unknown) vomiting, abdominal pain (unknown) (no (unknown) (unknown) GENERAL: in no (units (unknown) date) distress, not toxic unknown) not dyspneic (unknown) (no (unknown) (unknown) GENERAL: negative (units (unknown) date) chills, fatigue, unknown) malaise, fever, sweats. (unknown) (no (unknown) (unknown) : negative (units (u nknown) date) dysuria, frequency, unknown) hematuria (unknown) (no (unknown) (unknown) General (units (unkno wn) date) unknown) (unknown) (no (unknown) (unknown) Generalized anxiety (unit s (unknown) date) disorder with panic unknown) attacks (unknown) (no (unknown) (unknown) Globulin (1.7-4.1) (units (unknown) date) g/dL unknown) (unknown) (no (unknown) (unknown) Globulin 3.4 (units (u nknown) date) (1.7-4.1) g/dL unknown) (unknown) (no (unknown) (unknown) Glucose (70-100) (units (unknown) date) mg/dL unknown) (unknown) (no (unknown) (unknown) Glucose 190 H (units ( unknown) date) (70-100) mg/dL unknown) (unknown) (no (unknown) (unknown) HEAD: (units (unkno wn) date) Normocephalic. unknown) (unknown) (no (unknown) (unknown) HEENT: negative (units (unknown) date) sinus pain, ear unknown) pain, sore throat (unknown) (no (unknown) (unknown) HPI - Chest Pain (units (unknown) date) unknown) (unknown) (no (unknown) (unknown) HPI narrative: (units (unknown) date) unknown) (unknown) (no (unknown) (unknown) Hct (41-53) % (units ( unknown) date) unknown) (unknown) (no (unknown) (unknown) Hct 46.0 (41-53) % (units (unknown) date) unknown) (unknown) (no (unknown) (unknown) Herniated (units (unkn own) date) intervertebral disc unknown) of lumbar spine (unknown) (no (unknown) (unknown) Hgb (13.5-17.5) (units (unknown) date) g/dL unknown) (unknown) (no (unknown) (unknown) Hgb 15.3 (units (unkno wn) date) (13.5-17.5) g/dL unknown) (unknown) (no (unknown) (unknown) History of Present (units (unknown) date) Illness unknown) (unknown) (no (unknown) (unknown) Home Medications (units (unknown) date) unknown) (unknown) (no (unknown) (unknown) Hx of cervical (units (unknown) date) discectomy (-2013) unknown) (unknown) (no (unknown) (unknown) Hyperlipidemia (units (unknown) date) unknown) (unknown) (no (unknown) (unknown) Hypertension (units (u nknown) date) unknown) (unknown) (no (unknown) (unknown) INR (0.9-1.3) (units ( unknown) date) unknown) (unknown) (no (unknown) (unknown) INR 1.0 (0.9-1.3) (units (unknown) date) unknown) (unknown) (no (unknown) (unknown) Imaging studies (units (unknown) date) independently unknown) reviewed: Chest x-ray no acute process (unknown) (no (unknown) (unknown) Independently (units ( unknown) date) reviewed EKG as unknown) above sinus tachycardia rate [address] elevation (unknown) (no (unknown) (unknown) Initial Vital Signs (unit s (unknown) date) unknown) (unknown) (no (unknown) (unknown) Initial Vital (units ( unknown) date) Signs: unknown) (unknown) (no (unknown) (unknown) [facility] (units (unknown) date) [address] unknown) [place] [address] (unknown) (no (unknown) (unknown) Lab Data (units (unkno wn) date) unknown) (unknown) (no (unknown) (unknown) Lab Results (units (un known) date) unknown) (unknown) (no (unknown) (unknown) Lab Test results (units (unknown) date) independently unknown) reviewed as above. Pertinent findings: Troponin (unknown) (no (unknown) (unknown) Labs: (units (unkno wn) date) unknown) (unknown) (no (unknown) (unknown) Last Admin: (units (un known) date) 09/09/22 16:16 Dose: unknown) Not Given (unknown) (no (unknown) (unknown) Last Admin: (units (un known) date) 09/09/22 17:05 Dose: unknown) 1 inch (unknown) (no (unknown) (unknown) Last Admin: (units (un known) date) 09/09/22 17:09 Dose: unknown) 4 mg (unknown) (no (unknown) (unknown) Limitations: no (units (unknown) date) limitations unknown) (unknown) (no (unknown) (unknown) Lipase (23-300) U/L (unit s (unknown) date) unknown) (unknown) (no (unknown) (unknown) Lipase 51 (23-300) (units (unknown) date) U/L unknown) (unknown) (no (unknown) (unknown) Lipase Stat (units (un known) date) unknown) (unknown) (no (unknown) (unknown) Lymph # (Auto) (units (unknown) date) (0370-7416) /uL unknown) (unknown) (no (unknown) (unknown) Lymph # (Auto) 1300 (unit s (unknown) date) (1504-2292) /uL unknown) (unknown) (no (unknown) (unknown) Lymph % (Auto) (units (unknown) date) (25-40) % unknown) (unknown) (no (unknown) (unknown) Lymph % (Auto) 14.9 (unit s (unknown) date) L (25-40) % unknown) (unknown) (no (unknown) (unknown) MCH (26-34) PG (units (unknown) date) unknown) (unknown) (no (unknown) (unknown) MCH 30.3 (26-34) PG (unit s (unknown) date) unknown) (unknown) (no (unknown) (unknown) MCHC (30-36) % (units (unknown) date) unknown) (unknown) (no (unknown) (unknown) MCHC 33.2 (30-36) % (unit s (unknown) date) unknown) (unknown) (no (unknown) (unknown) MCV (80-100) fL (units (unknown) date) unknown) (unknown) (no (unknown) (unknown) MCV 91.2 (80-100) (units (unknown) date) fL unknown) (unknown) (no (unknown) (unknown) MDM - Chest Pain (units (unknown) date) unknown) (unknown) (no (unknown) (unknown) MDM Narrative (units ( unknown) date) unknown) (unknown) (no (unknown) (unknown) MDM (units (unkno wn) date) unknown) (unknown) (no (unknown) (unknown) MUSCULOSKELETAL: (units (unknown) date) negative muscle or unknown) bony pain (unknown) (no (unknown) (unknown) Magnesium (1.6-2.3) (unit s (unknown) date) mg/dL unknown) (unknown) (no (unknown) (unknown) Magnesium 2.0 (units ( unknown) date) (1.6-2.3) mg/dL unknown) (unknown) (no (unknown) (unknown) Magnesium Stat (units (unknown) date) unknown) (unknown) (no (unknown) (unknown) Medical History (units (unknown) date) (Reviewed 09/09/22 @ unknown) 16:59 by Flaco Brock MD) (unknown) (no (unknown) (unknown) Medical decision (units (unknown) date) making narrative: unknown) (unknown) (no (unknown) (unknown) Medical records (units (unknown) date) reviewed: Stress unknown) test from June 2022 (unknown) (no (unknown) (unknown) Medication (units (unk nown) date) Instructions unknown) Recorded Confirmed (unknown) (no (unknown) (unknown) Medication (units (unk nown) date) Instructions unknown) Recorded (unknown) (no (unknown) (unknown) Mode of arrival: (units (unknown) date) Ambulatory unknown) (unknown) (no (unknown) (unknown) [place] # (Auto) (units ( unknown) date) (0-900) /uL unknown) (unknown) (no (unknown) (unknown) [place] # (Auto) 500 (units (unknown) date) (0-900) /uL unknown) (unknown) (no (unknown) (unknown) [place] % (Auto) (units ( unknown) date) (3-14) % unknown) (unknown) (no (unknown) (unknown) [place] % (Auto) 5.5 (units (unknown) date) (3-14) % unknown) (unknown) (no (unknown) (unknown) Morphine Sulfate (units (unknown) date) (Morphine 4 Mg/Ml unknown) Inj) 4 mg IV NOW ONE (unknown) (no (unknown) (unknown) Mother Diabetes (units (unknown) date) mellitus unknown) (unknown) (no (unknown) (unknown) NECK: Trachea (units ( unknown) date) midline. unknown) (unknown) (no (unknown) (unknown) NEURO: AOx4. (units (u nknown) date) unknown) (unknown) (no (unknown) (unknown) NEUROLOGIC: (units (un known) date) negative weakness, unknown) numbness (unknown) (no (unknown) (unknown) Narrative (units (unkn own) date) unknown) (unknown) (no (unknown) (unknown) Narrative: (units (unk nown) date) unknown) (unknown) (no (unknown) (unknown) Neut # (Auto) (units ( unknown) date) (8164-9077) /uL unknown) (unknown) (no (unknown) (unknown) Neut # (Auto) 6400 (units (unknown) date) (4150-5171) /uL unknown) (unknown) (no (unknown) (unknown) Neut % (Auto) (units ( unknown) date) (50-75) % unknown) (unknown) (no (unknown) (unknown) Neut % (Auto) 76.0 (units (unknown) date) H (50-75) % unknown) (unknown) (no (unknown) (unknown) Nitroglycerin (units ( unknown) date) (Nitroglycerin Oint unknown) 1 Inch/Gm Oint...G.) 1 inch TOP NOW ONE (unknown) (no (unknown) (unknown) No Action (units (unkn own) date) unknown) (unknown) (no (unknown) (unknown) Ondansetron HCl (units (unknown) date) (Ondansetron 4 Mg/2 unknown) Ml Inj) 4 mg IV NOW ONE (unknown) (no (unknown) (unknown) Opiate addiction (units (unknown) date) unknown) (unknown) (no (unknown) (unknown) Ordered: (units (unkno wn) date) unknown) (unknown) (no (unknown) (unknown) Orders (units (unkno wn) date) unknown) (unknown) (no (unknown) (unknown) Oxygen Delivery (units (unknown) date) Method Room Air unknown) 09/09/22 15:54 (unknown) (no (unknown) (unknown) Oxygen Delivery (units (unknown) date) Method Room Air unknown) (unknown) (no (unknown) (unknown) Oxygen Delivery (units (unknown) date) Method unknown) (unknown) (no (unknown) (unknown) PSYCH: Not anxious, (unit s (unknown) date) is cooperative unknown) (unknown) (no (unknown) (unknown) PT (10.1-12.7) (units (unknown) date) SECONDS unknown) (unknown) (no (unknown) (unknown) PT 11.1 (10.1-12.7) (unit s (unknown) date) SECONDS unknown) (unknown) (no (unknown) (unknown) PTT Partial (units (un known) date) Thromboplastin Dustin unknown) Stat 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 unknown) (unknown) (no (unknown) (unknown) Patient (units (unkno wn) date) Disposition: unknown) Admitted as Observation (unknown) (no (unknown) (unknown) Patient History (units (unknown) date) unknown) (unknown) (no (unknown) (unknown) Patient here for (units (unknown) date) nonreproducible unknown) left-sided chest pain that started this (unknown) (no (unknown) (unknown) Patient: (units (unknown) date) Anthony MCDUFFIE MR# unknown) (unknown) (no (unknown) (unknown) Peripheral (units (unk nown) date) neuropathy unknown) (unknown) (no (unknown) (unknown) Plt Count (150-400) (unit s (unknown) date) X103/uL unknown) (unknown) (no (unknown) (unknown) Plt Count 230 (units ( unknown) date) (150-400) X103/uL unknown) (unknown) (no (unknown) (unknown) Potassium (3.4-5.1) (unit s (unknown) date) mmol/L unknown) (unknown) (no (unknown) (unknown) Potassium 4.2 (units ( unknown) date) (3.4-5.1) mmol/L unknown) (unknown) (no (unknown) (unknown) Prescriptions: (units (unknown) date) unknown) (unknown) (no (unknown) (unknown) Previous Rx's (units ( unknown) date) unknown) (unknown) (no (unknown) (unknown) Prothrombin Time (units (unknown) date) INR Stat unknown) (unknown) (no (unknown) (unknown) Pulse Oximetry 97 (units (unknown) date) unknown) (unknown) (no (unknown) (unknown) Pulse Oximetry 98 (units (unknown) date) 09/09/22 15:54 unknown) (unknown) (no (unknown) (unknown) Pulse Oximetry 98 (units (unknown) date) 95 96 unknown) (unknown) (no (unknown) (unknown) Pulse Rate 105 H (units (unknown) date) 100 H unknown) (unknown) (no (unknown) (unknown) Pulse Rate 106 H (units (unknown) date) unknown) (unknown) (no (unknown) (unknown) Pulse Rate 119 H (units (unknown) date) 09/09/22 15:54 unknown) (unknown) (no (unknown) (unknown) Pulse Rate 119 H (units (unknown) date) 112 H 110 H unknown) (unknown) (no (unknown) (unknown) RBC (4.5-5.9) (units ( unknown) date) X106/uL unknown) (unknown) (no (unknown) (unknown) RBC 5.04 (4.5-5.9) (units (unknown) date) X106/uL unknown) (unknown) (no (unknown) (unknown) RDW (11.6-14.8) % (units (unknown) date) unknown) (unknown) (no (unknown) (unknown) RDW 13.0 (units (unkno wn) date) (11.6-14.8) % unknown) (unknown) (no (unknown) (unknown) REACTION' (units (unkn own) date) unknown) (unknown) (no (unknown) (unknown) RESPIRATORY: Clear (units (unknown) date) to auscultation. unknown) Breath sounds equal bilaterally. No wheezes, (unknown) (no (unknown) (unknown) RESPIRATORY: (units (u nknown) date) negative dyspnea, unknown) cough (unknown) (no (unknown) (unknown) RLS (restless legs (units (unknown) date) syndrome) unknown) (unknown) (no (unknown) (unknown) ROS Unobtainable: (units (unknown) date) All systems reviewed unknown) + are unremarkable except as noted in HPI (unknown) (no (unknown) (unknown) Re-evaluations: (units (unknown) date) unknown) (unknown) (no (unknown) (unknown) Referrals: (units (unk nown) date) unknown) (unknown) (no (unknown) (unknown) Related Data (units (u nknown) date) unknown) (unknown) (no (unknown) (unknown) Respiratory Rate 18 (unit s (unknown) date) 09/09/22 15:54 unknown) (unknown) (no (unknown) (unknown) Respiratory Rate 18 (unit s (unknown) date) 19 unknown) (unknown) (no (unknown) (unknown) Respiratory Rate 20 (unit s (unknown) date) unknown) (unknown) (no (unknown) (unknown) Respiratory Rate (units (unknown) date) unknown) (unknown) (no (unknown) (unknown) Review of Systems (units (unknown) date) unknown) (unknown) (no (unknown) (unknown) Rx Instructions: (units (unknown) date) unknown) (unknown) (no (unknown) (unknown) SARS-CoV-2 (PCR) (units (unknown) date) (Negative) unknown) (unknown) (no (unknown) (unknown) SARS-CoV-2 (PCR) (units (unknown) date) Negative (Negative) unknown) (unknown) (no (unknown) (unknown) SKIN: Warm and dry (units (unknown) date) unknown) (unknown) (no (unknown) (unknown) SKIN: negative (units (unknown) date) rash, skin lesions unknown) (unknown) (no (unknown) (unknown) Signed By: (units (unk nown) date) unknown) (unknown) (no (unknown) (unknown) Smoking Status: (units (unknown) date) Current every day unknown) smoker (unknown) (no (unknown) (unknown) Social History (units (unknown) date) (Reviewed 09/09/22 @ unknown) 16:59 by Flaco Brock MD) (unknown) (no (unknown) (unknown) Sodium (137-145) (units (unknown) date) mmol/L unknown) (unknown) (no (unknown) (unknown) Sodium 138 (units (unk nown) date) (137-145) mmol/L unknown) (unknown) (no (unknown) (unknown) Source: patient (units (unknown) date) unknown) (unknown) (no (unknown) (unknown) Spinal stenosis of (units (unknown) date) lumbar region with unknown) neurogenic claudication (unknown) (no (unknown) (unknown) Spondylolisthesis (units (unknown) date) of lumbar region unknown) (unknown) (no (unknown) (unknown) Stated Complaint: (units (unknown) date) neck and chest pain unknown) (unknown) (no (unknown) (unknown) Stenosis of artery (units (unknown) date) unknown) (unknown) (no (unknown) (unknown) Stop: 09/09/22 (units (unknown) date) 16:04 unknown) (unknown) (no (unknown) (unknown) Stop: 09/09/22 (units (unknown) date) 16:56 unknown) (unknown) (no (unknown) (unknown) Substance Use Type: (unit s (unknown) date) does not use unknown) (unknown) (no (unknown) (unknown) Surgical History (units (unknown) date) (Reviewed 09/09/22 @ unknown) 16:59 by Flaco Brock MD) (unknown) (no (unknown) (unknown) Temperature 98.1 F (units (unknown) date) 09/09/22 15:54 unknown) (unknown) (no (unknown) (unknown) Temperature 98.1 F (units (unknown) date) unknown) (unknown) (no (unknown) (unknown) Temperature (units (un known) date) unknown) (unknown) (no (unknown) (unknown) Time Seen by (units (u nknown) date) Provider: 09/09/22 unknown) 16:22 (unknown) (no (unknown) (unknown) Total Bilirubin (units (unknown) date) (0.2-1.3) mg/dL unknown) (unknown) (no (unknown) (unknown) Total Bilirubin 0.5 (unit s (unknown) date) (0.2-1.3) mg/dL unknown) (unknown) (no (unknown) (unknown) Total Creatine (units (unknown) date) Kinase (55-170) U/L unknown) (unknown) (no (unknown) (unknown) Total Creatine (units (unknown) date) Kinase 163 (55-170) unknown) U/L (unknown) (no (unknown) (unknown) Total Protein (units ( unknown) date) (6.3-8.2) g/dL unknown) (unknown) (no (unknown) (unknown) Total Protein 8.1 (units (unknown) date) (6.3-8.2) g/dL unknown) (unknown) (no (unknown) (unknown) Treatments: (units (un known) date) unknown) (unknown) (no (unknown) (unknown) Troponin + CK (units ( unknown) date) Cardiac Panel Stat unknown) (unknown) (no (unknown) (unknown) Troponin I < 0.012 (units (unknown) date) (0.01-0.034) ng/mL unknown) (unknown) (no (unknown) (unknown) Troponin I (units (unk nown) date) (0.01-0.034) ng/mL unknown) (unknown) (no (unknown) (unknown) Urine Drug Screen, (units (unknown) date) Rapid Stat unknown) (unknown) (no (unknown) (unknown) Vital Signs - 8 hr (units (unknown) date) unknown) (unknown) (no (unknown) (unknown) Vital Signs (units (un known) date) unknown) (unknown) (no (unknown) (unknown) Vital signs: (units (u nknown) date) unknown) (unknown) (no (unknown) (unknown) Vitamin D (units (unkn own) date) deficiency unknown) (unknown) (no (unknown) (unknown) WBC (4.5-11.0) (units (unknown) date) X103/uL unknown) (unknown) (no (unknown) (unknown) WBC 8.4 (4.5-11.0) (units (unknown) date) X103/uL unknown) (unknown) (no (unknown) (unknown) XR chest 1V Stat (units (unknown) date) unknown) (unknown) (no (unknown) (unknown) [Embedded Image Not (unit s (unknown) date) Available] unknown) (unknown) (no (unknown) (unknown) admitted here. Was (units (unknown) date) recommended to have unknown) a chemical stress test and (unknown) (no (unknown) (unknown) alcohol intake (units (unknown) date) frequency: a few unknown) times a month (unknown) (no (unknown) (unknown) alcohol intake: (units (unknown) date) never unknown) (unknown) (no (unknown) (unknown) alprazolam 0.5 mg (units (unknown) date) tablet 0.5 mg PO unknown) BEDTIME PRN sleep #14 05/20/22 (unknown) (no (unknown) (unknown) alprazolam 0.5 mg (units (unknown) date) tablet unknown) (unknown) (no (unknown) (unknown) and below (units (unkn own) date) unknown) (unknown) (no (unknown) (unknown) angina DE non-STEMI (unit s (unknown) date) PE hypertensive unknown) urgency (unknown) (no (unknown) (unknown) aspirin 81 mg (units ( unknown) date) tablet,delayed 81 mg unknown) PO DAILY 04/11/22 05/20/22 (unknown) (no (unknown) (unknown) aspirin 81 mg (units ( unknown) date) tablet,delayed unknown) release (DR/EC) (unknown) (no (unknown) (unknown) aspirin ordered (units (unknown) date) unknown) (unknown) (no (unknown) (unknown) atorvastatin 40 mg (units (unknown) date) tablet 40 mg PO unknown) BEDTIME #90 tabs 04/11/22 (unknown) (no (unknown) (unknown) atorvastatin 40 mg (units (unknown) date) tablet unknown) (unknown) (no (unknown) (unknown) bupropion HCl 150 (units (unknown) date) mg 24 hr tablet, 150 unknown) mg PO BID #60 tabs 05/20/22 (unknown) (no (unknown) (unknown) bupropion HCl 150 (units (unknown) date) mg tablet extended unknown) release 24 hr (unknown) (no (unknown) (unknown) droperidol (units (unk nown) date) [DROPERIDOL] Allergy unknown) Mild 'COGENIC Verified 07/12/22 14:01 (unknown) (no (unknown) (unknown) echocardiogram (units (unknown) date) done. It has taken a unknown) while for this order to be organized and it (unknown) (no (unknown) (unknown) extended release (units (unknown) date) unknown) (unknown) (no (unknown) (unknown) for high blood (units (unknown) date) pressure. No unknown) diaphoresis no nausea no syncope, no dyspnea (unknown) (no (unknown) (unknown) gabapentin 600 mg (units (unknown) date) tablet 600 mg PO TID unknown) #270 tabs 05/20/22 (unknown) (no (unknown) (unknown) gabapentin 600 mg (units (unknown) date) tablet unknown) (unknown) (no (unknown) (unknown) household members: (units (unknown) date) family unknown) (unknown) (no (unknown) (unknown) is scheduled for (units (unknown) date) next Thursday. Patient unknown) had abnormal heart catheterization as (unknown) (no (unknown) (unknown) leave on most (units ( unknown) date) painful area for up unknown) to 12 hrs (unknown) (no (unknown) (unknown) less than 0.012 (units (unknown) date) CK-MB 0.77 D-dimer unknown) 220 (unknown) (no (unknown) (unknown) lidocaine 5 % (units ( unknown) date) topical patch 2 unknown) patch topical DAILY #30 ea 07/12/22 (unknown) (no (unknown) (unknown) lidocaine (units (unkn own) date) [Lidoderm] 5 % unknown) adhesive patch,medicated (unknown) (no (unknown) (unknown) metoprolol tartrate (unit s (unknown) date) 25 mg tablet 25 mg unknown) PO BID #180 tabs 04/09/22 (unknown) (no (unknown) (unknown) metoprolol tartrate (unit s (unknown) date) 25 mg tablet unknown) (unknown) (no (unknown) (unknown) mg tablet (units (unkn own) date) (Percocet) unknown) (unknown) (no (unknown) (unknown) morning. Patient (units (unknown) date) has baseline chronic unknown) cervical degenerative disc disease pain (unknown) (no (unknown) (unknown) new. Patient has (units (unknown) date) had abnormal unknown) exercise stress test June 2022 when he was (unknown) (no (unknown) (unknown) oxycodone-acetamino (unit s (unknown) date) phen 5 mg-325 1 tab unknown) PO Q8H PRN pain #10 tabs 07/12/22 (unknown) (no (unknown) (unknown) oxycodone-acetamino (unit s (unknown) date) phen [Percocet] unknown) 5-325 mg tablet (unknown) (no (unknown) (unknown) rales, or rhonchi. (units (unknown) date) unknown) (unknown) (no (unknown) (unknown) release (units (unkno wn) date) unknown) (unknown) (no (unknown) (unknown) sertraline 50 mg (units (unknown) date) tablet 50 mg PO unknown) DAILY #90 tabs 04/09/22 (unknown) (no (unknown) (unknown) sertraline 50 mg (units (unknown) date) tablet unknown) (unknown) (no (unknown) (unknown) tabs (units (unkno wn) date) unknown) (unknown) (no (unknown) (unknown) test history of (units (unknown) date) abnormal heart unknown) catheterization (unknown) (no (unknown) (unknown) that radiates to (units (unknown) date) his left arm which unknown) is not new. However the left chest pain is (unknown) (no (unknown) (unknown) tobacco type: (units ( unknown) date) cigarettes unknown) (unknown) (no (unknown) (unknown) well in 2018. Blood (unit s (unknown) date) pressure and heart unknown) rate noted. Patient is on metoprolol Result panel 621 (unknown) (no (unknown) (unknown) (no value) (units (unk nown) date) unknown) (unknown) (no (unknown) (unknown) (Lidoderm) (units (unk nown) date) unknown) (unknown) (no (unknown) (unknown) 0.5 mg PO BEDTIME (units (unknown) date) PRN (Reason: sleep) unknown) Qty: 14 0RF (unknown) (no (unknown) (unknown) 09/09/22 09/09/22 (units (unknown) date) 09/09/22 Range/Units unknown) (unknown) (no (unknown) (unknown) 09/09/22 09/09/22 (units (unknown) date) Range/Units unknown) (unknown) (no (unknown) (unknown) 09/09/22 16:03 (units (unknown) date) unknown) (unknown) (no (unknown) (unknown) 09/09/22 16:10 (units (unknown) date) unknown) (unknown) (no (unknown) (unknown) 09/09/22 16:23 (units (unknown) date) unknown) (unknown) (no (unknown) (unknown) 09/09/22 16:30 (units (unknown) date) unknown) (unknown) (no (unknown) (unknown) 09/09/22 16:49 (units (unknown) date) unknown) (unknown) (no (unknown) (unknown) 09/09/22 (units (unkno wn) date) unknown) (unknown) (no (unknown) (unknown) 1 tab PO Q8H PRN (units (unknown) date) (Reason: pain) Qty: unknown) 10 0RF (unknown) (no (unknown) (unknown) 14:10 16:10 16:10 (units (unknown) date) unknown) (unknown) (no (unknown) (unknown) 150 mg PO BID Qty: (units (unknown) date) 60 0RF unknown) (unknown) (no (unknown) (unknown) 15:54 09/09/22 (units (unknown) date) unknown) (unknown) (no (unknown) (unknown) 16:10 16:30 (units (un known) date) unknown) (unknown) (no (unknown) (unknown) 16:15 09/09/22 (units (unknown) date) unknown) (unknown) (no (unknown) (unknown) 16:19 09/09/22 (units (unknown) date) unknown) (unknown) (no (unknown) (unknown) 16:19 (units (unkno wn) date) unknown) (unknown) (no (unknown) (unknown) 16:30 09/09/22 (units (unknown) date) unknown) (unknown) (no (unknown) (unknown) 16:30 (units (unkno wn) date) unknown) (unknown) (no (unknown) (unknown) 16:35 09/09/22 (units (unknown) date) unknown) (unknown) (no (unknown) (unknown) 17:05 (units (unkno wn) date) unknown) (unknown) (no (unknown) (unknown) 2 patch topical (units (unknown) date) DAILY Qty: 30 0RF unknown) (unknown) (no (unknown) (unknown) 25 mg PO BID Qty: (units (unknown) date) 180 3RF unknown) (unknown) (no (unknown) (unknown) 40 mg PO BEDTIME (units (unknown) date) Qty: 90 3RF unknown) (unknown) (no (unknown) (unknown) 50 mg PO DAILY Qty: (unit s (unknown) date) 90 3RF unknown) (unknown) (no (unknown) (unknown) 600 mg PO TID Qty: (units (unknown) date) 270 3RF unknown) (unknown) (no (unknown) (unknown) 81 mg PO DAILY (units (unknown) date) unknown) (unknown) (no (unknown) (unknown) : [id number] (units (u nknown) date) unknown) (unknown) (no (unknown) (unknown) ADD (attention (units (unknown) date) deficit disorder) unknown) (unknown) (no (unknown) (unknown) ALT (<50) IU/L (units (unknown) date) unknown) (unknown) (no (unknown) (unknown) ALT 34 (<50) IU/L (units (unknown) date) unknown) (unknown) (no (unknown) (unknown) APTT (26-36) (units (u nknown) date) SECONDS unknown) (unknown) (no (unknown) (unknown) APTT 32 (26-36) (units (unknown) date) SECONDS unknown) (unknown) (no (unknown) (unknown) AST (17-59) IU/L (units (unknown) date) unknown) (unknown) (no (unknown) (unknown) AST 37 (17-59) IU/L (unit s (unknown) date) unknown) (unknown) (no (unknown) (unknown) [facility] MD (units (unknown) date) [Primary Care unknown) Provider] (unknown) (no (unknown) (unknown) After history and (units (unknown) date) exam CBC CMP unknown) troponin EKG chest x-ray D-dimer nitro paste (unknown) (no (unknown) (unknown) Age/Sex: 52 / M (units (unknown) date) unknown) (unknown) (no (unknown) (unknown) Albumin (3.5-5.0) (units (unknown) date) g/dL unknown) (unknown) (no (unknown) (unknown) Albumin 4.7 (units (un known) date) (3.5-5.0) g/dL unknown) (unknown) (no (unknown) (unknown) Albumin/Globulin (units (unknown) date) Ratio (1.0-2.8) unknown) (unknown) (no (unknown) (unknown) Albumin/Globulin (units (unknown) date) Ratio 1.4 (1.0-2.8) unknown) (unknown) (no (unknown) (unknown) Alkaline (units (unkno wn) date) Phosphatase (38-126) unknown) U/L (unknown) (no (unknown) (unknown) Alkaline (units (unkno wn) date) Phosphatase 60 unknown) (38-126) U/L (unknown) (no (unknown) (unknown) Allergies (units (unkn own) date) unknown) (unknown) (no (unknown) (unknown) Allergy/AdvReac (units (unknown) date) Type Severity unknown) Reaction Status Date / Time (unknown) (no (unknown) (unknown) Aspirin (Aspirin 81 (unit s (unknown) date) Mg Chew Tab) 324 mg unknown) PO NOW ONE (unknown) (no (unknown) (unknown) Asthma (units (unkno wn) date) unknown) (unknown) (no (unknown) (unknown) BACK: No flank (units (unknown) date) tenderness. unknown) (unknown) (no (unknown) (unknown) BUN (9-20) mg/dL (units (unknown) date) unknown) (unknown) (no (unknown) (unknown) BUN 12 (9-20) mg/dL (unit s (unknown) date) unknown) (unknown) (no (unknown) (unknown) BUN/Creatinine (units (unknown) date) Ratio (6-22) unknown) (unknown) (no (unknown) (unknown) BUN/Creatinine (units (unknown) date) Ratio 15.6 (6-22) unknown) (unknown) (no (unknown) (unknown) Baso # (Auto) (units ( unknown) date) (0-100) /uL unknown) (unknown) (no (unknown) (unknown) Baso # (Auto) 100 (units (unknown) date) (0-100) /uL unknown) (unknown) (no (unknown) (unknown) Baso % (Auto) (0-2) (unit s (unknown) date) % unknown) (unknown) (no (unknown) (unknown) Baso % (Auto) 0.9 (units (unknown) date) (0-2) % unknown) (unknown) (no (unknown) (unknown) Blood Pressure (units (unknown) date) 176/97 H 180/103 H unknown) (unknown) (no (unknown) (unknown) Blood Pressure (units (unknown) date) 177/98 H 09/09/22 unknown) 15:54 (unknown) (no (unknown) (unknown) Blood Pressure (units (unknown) date) 177/98 H unknown) (unknown) (no (unknown) (unknown) Blood Pressure (units (unknown) date) 193/101 H 190/108 H unknown) (unknown) (no (unknown) (unknown) CARDIOVASCULAR: (units (unknown) date) Positive chest pain, unknown) palpitations (unknown) (no (unknown) (unknown) CARDIOVASCULAR: (units (unknown) date) Regular rate and unknown) rhythm without murmurs (unknown) (no (unknown) (unknown) CC: Chest pain (units (unknown) date) unknown) (unknown) (no (unknown) (unknown) CK-MB (CK-2) (units (u nknown) date) (<2.37) ng/mL unknown) (unknown) (no (unknown) (unknown) CK-MB (CK-2) 0.77 (units (unknown) date) (<2.37) ng/mL unknown) (unknown) (no (unknown) (unknown) CK-MB (CK-2) Rel (units (unknown) date) Index (1.5-5.0) % unknown) (unknown) (no (unknown) (unknown) CK-MB (CK-2) Rel (units (unknown) date) Index 0.5 L unknown) (1.5-5.0) % (unknown) (no (unknown) (unknown) COVID19 -Nasal (units (unknown) date) RAPID Stat unknown) (unknown) (no (unknown) (unknown) Calcium (8.4-10.2) (units (unknown) date) mg/dL unknown) (unknown) (no (unknown) (unknown) Calcium 9.5 (units (un known) date) (8.4-10.2) mg/dL unknown) (unknown) (no (unknown) (unknown) Carbon Dioxide (units (unknown) date) (22-32) mmol/L unknown) (unknown) (no (unknown) (unknown) Carbon Dioxide 29 (units (unknown) date) (22-32) mmol/L unknown) (unknown) (no (unknown) (unknown) Cervical (units (unkno wn) date) radiculopathy due to unknown) osteoarthritis of spine (unknown) (no (unknown) (unknown) Chest pain (units (unk nown) date) unknown) (unknown) (no (unknown) (unknown) Chief Complaint: (units (unknown) date) Chest Pain unknown) (unknown) (no (unknown) (unknown) Chloride (98-107) (units (unknown) date) mmol/L unknown) (unknown) (no (unknown) (unknown) Chloride 102 (units (u nknown) date) (98-107) mmol/L unknown) (unknown) (no (unknown) (unknown) Clinical (units (o wn) date) Impression: unknown) (unknown) (no (unknown) (unknown) Complete Blood (units (unknown) date) Count AUTO DIFF Stat unknown) (unknown) (no (unknown) (unknown) Complicating (units (u nknown) date) co-morbidities: unknown) History hypertension history of abnormal stress (unknown) (no (unknown) (unknown) Comprehensive (units ( unknown) date) Metabolic Panel Stat unknown) (unknown) (no (unknown) (unknown) Consultations: 5:26 (unit s (unknown) date) p.m. spoke with unknown) cardiology dr sullivan, would like patient to (unknown) (no (unknown) (unknown) Coronary artery (units (unknown) date) disease unknown) (unknown) (no (unknown) (unknown) Course (units (o wn) date) unknown) (unknown) (no (unknown) (unknown) Creatinine (units (unk nown) date) (0.66-1.25) mg/dL unknown) (unknown) (no (unknown) (unknown) Creatinine 0.77 (units (unknown) date) (0.66-1.25) mg/dL unknown) (unknown) (no (unknown) (unknown) D Dimer Stat (units (u nknown) date) unknown) (unknown) (no (unknown) (unknown) D-Dimer (<500) (units (unknown) date) ng/ml unknown) (unknown) (no (unknown) (unknown) D-Dimer 220 (<500) (units (unknown) date) ng/ml unknown) (unknown) (no (unknown) (unknown) : 1970 (units (unknown) date) Acct:[id number] unknown) (unknown) (no (unknown) (unknown) Data collected (units (unknown) date) from: Patient unknown) (unknown) (no (unknown) (unknown) Date of Service: (units (unknown) date) 09/09/22 unknown) (unknown) (no (unknown) (unknown) Departure (units (unkn own) date) unknown) (unknown) (no (unknown) (unknown) Depression (units (unk nown) date) unknown) (unknown) (no (unknown) (unknown) Diagnosis: Chest (units (unknown) date) pain unknown) (unknown) (no (unknown) (unknown) Differential (units (u nknown) date) considered: Includes unknown) but not limited to stable angina unstable (unknown) (no (unknown) (unknown) Discharge Plan (units (unknown) date) unknown) (unknown) (no (unknown) (unknown) Discontinued (units (u nknown) date) Medications unknown) (unknown) (no (unknown) (unknown) Discussion: (units (un known) date) unknown) (unknown) (no (unknown) (unknown) Documented By: CTS (units (unknown) date) unknown) (unknown) (no (unknown) (unknown) ED Orders (units (unkn own) date) unknown) (unknown) (no (unknown) (unknown) EKG-12 Lead Stat (units (unknown) date) unknown) (unknown) (no (unknown) (unknown) ENT: Mucous (units (un known) date) membranes moist. unknown) (unknown) (no (unknown) (unknown) ER Physician: (units ( unknown) date) Flaco Brock MD unknown) (unknown) (no (unknown) (unknown) EXTREMITIES: No (units (unknown) date) gross deformities. unknown) (unknown) (no (unknown) (unknown) EYES: Pupils equal (units (unknown) date) round unknown) (unknown) (no (unknown) (unknown) Emergency Report (units (unknown) date) unknown) (unknown) (no (unknown) (unknown) Eos # (Auto) (units (u nknown) date) (0-450) /uL unknown) (unknown) (no (unknown) (unknown) Eos # (Auto) 200 (units (unknown) date) (0-450) /uL unknown) (unknown) (no (unknown) (unknown) Eos % (Auto) (2-4) (units (unknown) date) % unknown) (unknown) (no (unknown) (unknown) Eos % (Auto) 2.7 (units (unknown) date) (2-4) % unknown) (unknown) (no (unknown) (unknown) Essential (units (unkn own) date) hypertension unknown) (unknown) (no (unknown) (unknown) Estimated GFR > 60 (units (unknown) date) (>60) mL/min unknown) (unknown) (no (unknown) (unknown) Estimated GFR (>60) (unit s (unknown) date) mL/min unknown) (unknown) (no (unknown) (unknown) Exam Narrative: (units (unknown) date) unknown) (unknown) (no (unknown) (unknown) Exam documented (units (unknown) date) above, pertinent unknown) findings include: Hypertension (unknown) (no (unknown) (unknown) Exam (units (unkno wn) date) unknown) (unknown) (no (unknown) (unknown) Family History (units (unknown) date) (Reviewed 09/09/22 @ unknown) 16:59 by Flaco Brock MD) (unknown) (no (unknown) (unknown) Father Hypertension (unit s (unknown) date) unknown) (unknown) (no (unknown) (unknown) GASTROINTESTINAL: (units (unknown) date) Abdomen soft, unknown) non-tender (unknown) (no (unknown) (unknown) GASTROINTESTINAL: (units (unknown) date) negative nausea, unknown) vomiting, abdominal pain (unknown) (no (unknown) (unknown) GENERAL: in no (units (unknown) date) distress, not toxic unknown) not dyspneic (unknown) (no (unknown) (unknown) GENERAL: negative (units (unknown) date) chills, fatigue, unknown) malaise, fever, sweats. (unknown) (no (unknown) (unknown) : negative (units (u nknown) date) dysuria, frequency, unknown) hematuria (unknown) (no (unknown) (unknown) General (units (unkno wn) date) unknown) (unknown) (no (unknown) (unknown) Generalized anxiety (unit s (unknown) date) disorder with panic unknown) attacks (unknown) (no (unknown) (unknown) Globulin (1.7-4.1) (units (unknown) date) g/dL unknown) (unknown) (no (unknown) (unknown) Globulin 3.4 (units (u nknown) date) (1.7-4.1) g/dL unknown) (unknown) (no (unknown) (unknown) Glucose (70-100) (units (unknown) date) mg/dL unknown) (unknown) (no (unknown) (unknown) Glucose 190 H (units ( unknown) date) (70-100) mg/dL unknown) (unknown) (no (unknown) (unknown) HEAD: (units (unkno wn) date) Normocephalic. unknown) (unknown) (no (unknown) (unknown) HEENT: negative (units (unknown) date) sinus pain, ear unknown) pain, sore throat (unknown) (no (unknown) (unknown) HPI - Chest Pain (units (unknown) date) unknown) (unknown) (no (unknown) (unknown) HPI narrative: (units (unknown) date) unknown) (unknown) (no (unknown) (unknown) Hct (41-53) % (units ( unknown) date) unknown) (unknown) (no (unknown) (unknown) Hct 46.0 (41-53) % (units (unknown) date) unknown) (unknown) (no (unknown) (unknown) Herniated (units (unkn own) date) intervertebral disc unknown) of lumbar spine (unknown) (no (unknown) (unknown) Hgb (13.5-17.5) (units (unknown) date) g/dL unknown) (unknown) (no (unknown) (unknown) Hgb 15.3 (units (unkno wn) date) (13.5-17.5) g/dL unknown) (unknown) (no (unknown) (unknown) History of Present (units (unknown) date) Illness unknown) (unknown) (no (unknown) (unknown) Home Medications (units (unknown) date) unknown) (unknown) (no (unknown) (unknown) Hx of cervical (units (unknown) date) discectomy (-2013) unknown) (unknown) (no (unknown) (unknown) Hyperlipidemia (units (unknown) date) unknown) (unknown) (no (unknown) (unknown) Hypertension (units (u nknown) date) unknown) (unknown) (no (unknown) (unknown) INR (0.9-1.3) (units ( unknown) date) unknown) (unknown) (no (unknown) (unknown) INR 1.0 (0.9-1.3) (units (unknown) date) unknown) (unknown) (no (unknown) (unknown) Imaging studies (units (unknown) date) independently unknown) reviewed: Chest x-ray no acute process (unknown) (no (unknown) (unknown) Independently (units ( unknown) date) reviewed EKG as unknown) above sinus tachycardia rate [address] elevation (unknown) (no (unknown) (unknown) Initial Vital Signs (unit s (unknown) date) unknown) (unknown) (no (unknown) (unknown) Initial Vital (units ( unknown) date) Signs: unknown) (unknown) (no (unknown) (unknown) [facility] (units (unknown) date) [address] unknown) [place] [address] (unknown) (no (unknown) (unknown) Lab Data (units (unkno wn) date) unknown) (unknown) (no (unknown) (unknown) Lab Results (units (un known) date) unknown) (unknown) (no (unknown) (unknown) Lab Test results (units (unknown) date) independently unknown) reviewed as above. Pertinent findings: Troponin (unknown) (no (unknown) (unknown) Labs: (units (unkno wn) date) unknown) (unknown) (no (unknown) (unknown) Last Admin: (units (un known) date) 09/09/22 16:16 Dose: unknown) Not Given (unknown) (no (unknown) (unknown) Last Admin: (units (un known) date) 09/09/22 17:05 Dose: unknown) 1 inch (unknown) (no (unknown) (unknown) Last Admin: (units (un known) date) 09/09/22 17:09 Dose: unknown) 4 mg (unknown) (no (unknown) (unknown) Limitations: no (units (unknown) date) limitations unknown) (unknown) (no (unknown) (unknown) Lipase (23-300) U/L (unit s (unknown) date) unknown) (unknown) (no (unknown) (unknown) Lipase 51 (23-300) (units (unknown) date) U/L unknown) (unknown) (no (unknown) (unknown) Lipase Stat (units (un known) date) unknown) (unknown) (no (unknown) (unknown) Lymph # (Auto) (units (unknown) date) (5874-8153) /uL unknown) (unknown) (no (unknown) (unknown) Lymph # (Auto) 1300 (unit s (unknown) date) (5777-9318) /uL unknown) (unknown) (no (unknown) (unknown) Lymph % (Auto) (units (unknown) date) (25-40) % unknown) (unknown) (no (unknown) (unknown) Lymph % (Auto) 14.9 (unit s (unknown) date) L (25-40) % unknown) (unknown) (no (unknown) (unknown) MCH (26-34) PG (units (unknown) date) unknown) (unknown) (no (unknown) (unknown) MCH 30.3 (26-34) PG (unit s (unknown) date) unknown) (unknown) (no (unknown) (unknown) MCHC (30-36) % (units (unknown) date) unknown) (unknown) (no (unknown) (unknown) MCHC 33.2 (30-36) % (unit s (unknown) date) unknown) (unknown) (no (unknown) (unknown) MCV (80-100) fL (units (unknown) date) unknown) (unknown) (no (unknown) (unknown) MCV 91.2 (80-100) (units (unknown) date) fL unknown) (unknown) (no (unknown) (unknown) MDM - Chest Pain (units (unknown) date) unknown) (unknown) (no (unknown) (unknown) MDM Narrative (units ( unknown) date) unknown) (unknown) (no (unknown) (unknown) MDM (units (unkno wn) date) unknown) (unknown) (no (unknown) (unknown) MUSCULOSKELETAL: (units (unknown) date) negative muscle or unknown) bony pain (unknown) (no (unknown) (unknown) Magnesium (1.6-2.3) (unit s (unknown) date) mg/dL unknown) (unknown) (no (unknown) (unknown) Magnesium 2.0 (units ( unknown) date) (1.6-2.3) mg/dL unknown) (unknown) (no (unknown) (unknown) Magnesium Stat (units (unknown) date) unknown) (unknown) (no (unknown) (unknown) Medical History (units (unknown) date) (Reviewed 09/09/22 @ unknown) 16:59 by Flaco Brock MD) (unknown) (no (unknown) (unknown) Medical decision (units (unknown) date) making narrative: unknown) (unknown) (no (unknown) (unknown) Medical records (units (unknown) date) reviewed: Stress unknown) test from June 2022 (unknown) (no (unknown) (unknown) Medication (units (unk nown) date) Instructions unknown) Recorded Confirmed (unknown) (no (unknown) (unknown) Medication (units (unk nown) date) Instructions unknown) Recorded (unknown) (no (unknown) (unknown) Mode of arrival: (units (unknown) date) Ambulatory unknown) (unknown) (no (unknown) (unknown) Mc[place]osh # (Auto) (units ( unknown) date) (0-900) /uL unknown) (unknown) (no (unknown) (unknown) [place]osh # (Auto) 500 (units (unknown) date) (0-900) /uL unknown) (unknown) (no (unknown) (unknown) Mc[place]osh % (Auto) (units ( unknown) date) (3-14) % unknown) (unknown) (no (unknown) (unknown) Mc[place]osh % (Auto) 5.5 (units (unknown) date) (3-14) % unknown) (unknown) (no (unknown) (unknown) Morphine Sulfate (units (unknown) date) (Morphine 4 Mg/Ml unknown) Inj) 4 mg IV NOW ONE (unknown) (no (unknown) (unknown) Mother Diabetes (units (unknown) date) mellitus unknown) (unknown) (no (unknown) (unknown) NECK: Trachea (units ( unknown) date) midline. unknown) (unknown) (no (unknown) (unknown) NEURO: AOx4. (units (u nknown) date) unknown) (unknown) (no (unknown) (unknown) NEUROLOGIC: (units (un known) date) negative weakness, unknown) numbness (unknown) (no (unknown) (unknown) Narrative (units (unkn own) date) unknown) (unknown) (no (unknown) (unknown) Narrative: (units (unk nown) date) unknown) (unknown) (no (unknown) (unknown) Neut # (Auto) (units ( unknown) date) (3758-5680) /uL unknown) (unknown) (no (unknown) (unknown) Neut # (Auto) 6400 (units (unknown) date) (1328-3318) /uL unknown) (unknown) (no (unknown) (unknown) Neut % (Auto) (units ( unknown) date) (50-75) % unknown) (unknown) (no (unknown) (unknown) Neut % (Auto) 76.0 (units (unknown) date) H (50-75) % unknown) (unknown) (no (unknown) (unknown) Nitroglycerin (units ( unknown) date) (Nitroglycerin Oint unknown) 1 Inch/Gm Oint...G.) 1 inch TOP NOW ONE (unknown) (no (unknown) (unknown) No Action (units (unkn own) date) unknown) (unknown) (no (unknown) (unknown) Ondansetron HCl (units (unknown) date) (Ondansetron 4 Mg/2 unknown) Ml Inj) 4 mg IV NOW ONE (unknown) (no (unknown) (unknown) Opiate addiction (units (unknown) date) unknown) (unknown) (no (unknown) (unknown) Ordered: (units (unkno wn) date) unknown) (unknown) (no (unknown) (unknown) Orders (units (unkno wn) date) unknown) (unknown) (no (unknown) (unknown) Oxygen Delivery (units (unknown) date) Method Room Air unknown) 09/09/22 15:54 (unknown) (no (unknown) (unknown) Oxygen Delivery (units (unknown) date) Method Room Air unknown) (unknown) (no (unknown) (unknown) Oxygen Delivery (units (unknown) date) Method unknown) (unknown) (no (unknown) (unknown) PSYCH: Not anxious, (unit s (unknown) date) is cooperative unknown) (unknown) (no (unknown) (unknown) PT (10.1-12.7) (units (unknown) date) SECONDS unknown) (unknown) (no (unknown) (unknown) PT 11.1 (10.1-12.7) (unit s (unknown) date) SECONDS unknown) (unknown) (no (unknown) (unknown) PTT Partial (units (un known) date) Thromboplastin Dustin unknown) Stat 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 unknown) (unknown) (no (unknown) (unknown) Patient (units (unkno wn) date) Disposition: unknown) Admitted as Observation (unknown) (no (unknown) (unknown) Patient History (units (unknown) date) unknown) (unknown) (no (unknown) (unknown) Patient here for (units (unknown) date) nonreproducible unknown) left-sided chest pain that started this (unknown) (no (unknown) (unknown) Patient: (units (unknown) date) IIAnthony MR# unknown) (unknown) (no (unknown) (unknown) Peripheral (units (unk nown) date) neuropathy unknown) (unknown) (no (unknown) (unknown) Plt Count (150-400) (unit s (unknown) date) X103/uL unknown) (unknown) (no (unknown) (unknown) Plt Count 230 (units ( unknown) date) (150-400) X103/uL unknown) (unknown) (no (unknown) (unknown) Potassium (3.4-5.1) (unit s (unknown) date) mmol/L unknown) (unknown) (no (unknown) (unknown) Potassium 4.2 (units ( unknown) date) (3.4-5.1) mmol/L unknown) (unknown) (no (unknown) (unknown) Prescriptions: (units (unknown) date) unknown) (unknown) (no (unknown) (unknown) Previous Rx's (units ( unknown) date) unknown) (unknown) (no (unknown) (unknown) Prothrombin Time (units (unknown) date) INR Stat unknown) (unknown) (no (unknown) (unknown) Pulse Oximetry 97 (units (unknown) date) unknown) (unknown) (no (unknown) (unknown) Pulse Oximetry 98 (units (unknown) date) 09/09/22 15:54 unknown) (unknown) (no (unknown) (unknown) Pulse Oximetry 98 (units (unknown) date) 95 96 unknown) (unknown) (no (unknown) (unknown) Pulse Rate 105 H (units (unknown) date) 100 H unknown) (unknown) (no (unknown) (unknown) Pulse Rate 106 H (units (unknown) date) unknown) (unknown) (no (unknown) (unknown) Pulse Rate 119 H (units (unknown) date) 09/09/22 15:54 unknown) (unknown) (no (unknown) (unknown) Pulse Rate 119 H (units (unknown) date) 112 H 110 H unknown) (unknown) (no (unknown) (unknown) RBC (4.5-5.9) (units ( unknown) date) X106/uL unknown) (unknown) (no (unknown) (unknown) RBC 5.04 (4.5-5.9) (units (unknown) date) X106/uL unknown) (unknown) (no (unknown) (unknown) RDW (11.6-14.8) % (units (unknown) date) unknown) (unknown) (no (unknown) (unknown) RDW 13.0 (units (unkno wn) date) (11.6-14.8) % unknown) (unknown) (no (unknown) (unknown) REACTION' (units (unkn own) date) unknown) (unknown) (no (unknown) (unknown) RESPIRATORY: Clear (units (unknown) date) to auscultation. unknown) Breath sounds equal bilaterally. No wheezes, (unknown) (no (unknown) (unknown) RESPIRATORY: (units (u nknown) date) negative dyspnea, unknown) cough (unknown) (no (unknown) (unknown) RLS (restless legs (units (unknown) date) syndrome) unknown) (unknown) (no (unknown) (unknown) ROS Unobtainable: (units (unknown) date) All systems reviewed unknown) + are unremarkable except as noted in HPI (unknown) (no (unknown) (unknown) Re-evaluations: (units (unknown) date) unknown) (unknown) (no (unknown) (unknown) Referrals: (units (unk nown) date) unknown) (unknown) (no (unknown) (unknown) Related Data (units (u nknown) date) unknown) (unknown) (no (unknown) (unknown) Respiratory Rate 18 (unit s (unknown) date) 09/09/22 15:54 unknown) (unknown) (no (unknown) (unknown) Respiratory Rate 18 (unit s (unknown) date) 19 unknown) (unknown) (no (unknown) (unknown) Respiratory Rate 20 (unit s (unknown) date) unknown) (unknown) (no (unknown) (unknown) Respiratory Rate (units (unknown) date) unknown) (unknown) (no (unknown) (unknown) Review of Systems (units (unknown) date) unknown) (unknown) (no (unknown) (unknown) Rx Instructions: (units (unknown) date) unknown) (unknown) (no (unknown) (unknown) SARS-CoV-2 (PCR) (units (unknown) date) (Negative) unknown) (unknown) (no (unknown) (unknown) SARS-CoV-2 (PCR) (units (unknown) date) Negative (Negative) unknown) (unknown) (no (unknown) (unknown) SKIN: Warm and dry (units (unknown) date) unknown) (unknown) (no (unknown) (unknown) SKIN: negative (units (unknown) date) rash, skin lesions unknown) (unknown) (no (unknown) (unknown) Signed By: (units (unk nown) date) unknown) (unknown) (no (unknown) (unknown) Smoking Status: (units (unknown) date) Current every day unknown) smoker (unknown) (no (unknown) (unknown) Social History (units (unknown) date) (Reviewed 09/09/22 @ unknown) 16:59 by Flaco Brock MD) (unknown) (no (unknown) (unknown) Sodium (137-145) (units (unknown) date) mmol/L unknown) (unknown) (no (unknown) (unknown) Sodium 138 (units (unk nown) date) (137-145) mmol/L unknown) (unknown) (no (unknown) (unknown) Source: patient (units (unknown) date) unknown) (unknown) (no (unknown) (unknown) Spinal stenosis of (units (unknown) date) lumbar region with unknown) neurogenic claudication (unknown) (no (unknown) (unknown) Spondylolisthesis (units (unknown) date) of lumbar region unknown) (unknown) (no (unknown) (unknown) Stated Complaint: (units (unknown) date) neck and chest pain unknown) (unknown) (no (unknown) (unknown) Stenosis of artery (units (unknown) date) unknown) (unknown) (no (unknown) (unknown) Stop: 09/09/22 (units (unknown) date) 16:04 unknown) (unknown) (no (unknown) (unknown) Stop: 09/09/22 (units (unknown) date) 16:56 unknown) (unknown) (no (unknown) (unknown) Substance Use Type: (unit s (unknown) date) does not use unknown) (unknown) (no (unknown) (unknown) Surgical History (units (unknown) date) (Reviewed 09/09/22 @ unknown) 16:59 by Flaco Brock MD) (unknown) (no (unknown) (unknown) Temperature 98.1 F (units (unknown) date) 09/09/22 15:54 unknown) (unknown) (no (unknown) (unknown) Temperature 98.1 F (units (unknown) date) unknown) (unknown) (no (unknown) (unknown) Temperature (units (un known) date) unknown) (unknown) (no (unknown) (unknown) Time Seen by (units (u nknown) date) Provider: 09/09/22 unknown) 16:22 (unknown) (no (unknown) (unknown) Total Bilirubin (units (unknown) date) (0.2-1.3) mg/dL unknown) (unknown) (no (unknown) (unknown) Total Bilirubin 0.5 (unit s (unknown) date) (0.2-1.3) mg/dL unknown) (unknown) (no (unknown) (unknown) Total Creatine (units (unknown) date) Kinase (55-170) U/L unknown) (unknown) (no (unknown) (unknown) Total Creatine (units (unknown) date) Kinase 163 (55-170) unknown) U/L (unknown) (no (unknown) (unknown) Total Protein (units ( unknown) date) (6.3-8.2) g/dL unknown) (unknown) (no (unknown) (unknown) Total Protein 8.1 (units (unknown) date) (6.3-8.2) g/dL unknown) (unknown) (no (unknown) (unknown) Treatments: Nitro (units (unknown) date) paste aspirin unknown) metoprolol (unknown) (no (unknown) (unknown) Troponin + CK (units ( unknown) date) Cardiac Panel Stat unknown) (unknown) (no (unknown) (unknown) Troponin I < 0.012 (units (unknown) date) (0.01-0.034) ng/mL unknown) (unknown) (no (unknown) (unknown) Troponin I (units (unk nown) date) (0.01-0.034) ng/mL unknown) (unknown) (no (unknown) (unknown) Urine Drug Screen, (units (unknown) date) Rapid Stat unknown) (unknown) (no (unknown) (unknown) Vital Signs - 8 hr (units (unknown) date) unknown) (unknown) (no (unknown) (unknown) Vital Signs (units (un known) date) unknown) (unknown) (no (unknown) (unknown) Vital signs: (units (u nknown) date) unknown) (unknown) (no (unknown) (unknown) Vitamin D (units (unkn own) date) deficiency unknown) (unknown) (no (unknown) (unknown) WBC (4.5-11.0) (units (unknown) date) X103/uL unknown) (unknown) (no (unknown) (unknown) WBC 8.4 (4.5-11.0) (units (unknown) date) X103/uL unknown) (unknown) (no (unknown) (unknown) XR chest 1V Stat (units (unknown) date) unknown) (unknown) (no (unknown) (unknown) [Embedded Image Not (unit s (unknown) date) Available] unknown) (unknown) (no (unknown) (unknown) admitted here. Was (units (unknown) date) recommended to have unknown) a chemical stress test and (unknown) (no (unknown) (unknown) alcohol intake (units (unknown) date) frequency: a few unknown) times a month (unknown) (no (unknown) (unknown) alcohol intake: (units (unknown) date) never unknown) (unknown) (no (unknown) (unknown) alprazolam 0.5 mg (units (unknown) date) tablet 0.5 mg PO unknown) BEDTIME PRN sleep #14 05/20/22 (unknown) (no (unknown) (unknown) alprazolam 0.5 mg (units (unknown) date) tablet unknown) (unknown) (no (unknown) (unknown) and below (units (unkn own) date) unknown) (unknown) (no (unknown) (unknown) angina DE non-STEMI (unit s (unknown) date) PE hypertensive unknown) urgency (unknown) (no (unknown) (unknown) aspirin 81 mg (units ( unknown) date) tablet,delayed 81 mg unknown) PO DAILY 04/11/22 05/20/22 (unknown) (no (unknown) (unknown) aspirin 81 mg (units ( unknown) date) tablet,delayed unknown) release (DR/EC) (unknown) (no (unknown) (unknown) aspirin ordered (units (unknown) date) unknown) (unknown) (no (unknown) (unknown) atorvastatin 40 mg (units (unknown) date) tablet 40 mg PO unknown) BEDTIME #90 tabs 04/11/22 (unknown) (no (unknown) (unknown) atorvastatin 40 mg (units (unknown) date) tablet unknown) (unknown) (no (unknown) (unknown) be admitted for (units (unknown) date) nuclear stress test, unknown) he will call to ensure test will be (unknown) (no (unknown) (unknown) bupropion HCl 150 (units (unknown) date) mg 24 hr tablet, 150 unknown) mg PO BID #60 tabs 05/20/22 (unknown) (no (unknown) (unknown) bupropion HCl 150 (units (unknown) date) mg tablet extended unknown) release 24 hr (unknown) (no (unknown) (unknown) droperidol (units (unk nown) date) [DROPERIDOL] Allergy unknown) Mild 'COGENIC Verified 07/12/22 14:01 (unknown) (no (unknown) (unknown) echocardiogram (units (unknown) date) done. It has taken a unknown) while for this order to be organized and it (unknown) (no (unknown) (unknown) extended release (units (unknown) date) unknown) (unknown) (no (unknown) (unknown) for high blood (units (unknown) date) pressure. No unknown) diaphoresis no nausea no syncope, no dyspnea (unknown) (no (unknown) (unknown) gabapentin 600 mg (units (unknown) date) tablet 600 mg PO TID unknown) #270 tabs 05/20/22 (unknown) (no (unknown) (unknown) gabapentin 600 mg (units (unknown) date) tablet unknown) (unknown) (no (unknown) (unknown) household members: (units (unknown) date) family unknown) (unknown) (no (unknown) (unknown) is scheduled for (units (unknown) date) next Thursday. Patient unknown) had abnormal heart catheterization as (unknown) (no (unknown) (unknown) leave on most (units ( unknown) date) painful area for up unknown) to 12 hrs (unknown) (no (unknown) (unknown) less than 0.012 (units (unknown) date) CK-MB 0.77 D-dimer unknown) 220 (unknown) (no (unknown) (unknown) lidocaine 5 % (units ( unknown) date) topical patch 2 unknown) patch topical DAILY #30 ea 07/12/22 (unknown) (no (unknown) (unknown) lidocaine (units (unkn own) date) [Lidoderm] 5 % unknown) adhesive patch,medicated (unknown) (no (unknown) (unknown) metoprolol tartrate (unit s (unknown) date) 25 mg tablet 25 mg unknown) PO BID #180 tabs 04/09/22 (unknown) (no (unknown) (unknown) metoprolol tartrate (unit s (unknown) date) 25 mg tablet unknown) (unknown) (no (unknown) (unknown) mg tablet (units (unkn own) date) (Percocet) unknown) (unknown) (no (unknown) (unknown) morning. Patient (units (unknown) date) has baseline chronic unknown) cervical degenerative disc disease pain (unknown) (no (unknown) (unknown) new. Patient has (units (unknown) date) had abnormal unknown) exercise stress test June 2022 when he was (unknown) (no (unknown) (unknown) ordered (units (unkno wn) date) unknown) (unknown) (no (unknown) (unknown) oxycodone-acetamino (unit s (unknown) date) phen 5 mg-325 1 tab unknown) PO Q8H PRN pain #10 tabs 07/12/22 (unknown) (no (unknown) (unknown) oxycodone-acetamino (unit s (unknown) date) phen [Percocet] unknown) 5-325 mg tablet (unknown) (no (unknown) (unknown) rales, or rhonchi. (units (unknown) date) unknown) (unknown) (no (unknown) (unknown) release (units (unkno wn) date) unknown) (unknown) (no (unknown) (unknown) sertraline 50 mg (units (unknown) date) tablet 50 mg PO unknown) DAILY #90 tabs 04/09/22 (unknown) (no (unknown) (unknown) sertraline 50 mg (units (unknown) date) tablet unknown) (unknown) (no (unknown) (unknown) tabs (units (unkno wn) date) unknown) (unknown) (no (unknown) (unknown) test history of (units (unknown) date) abnormal heart unknown) catheterization (unknown) (no (unknown) (unknown) that radiates to (units (unknown) date) his left arm which unknown) is not new. However the left chest pain is (unknown) (no (unknown) (unknown) tobacco type: (units ( unknown) date) cigarettes unknown) (unknown) (no (unknown) (unknown) well in 2018. Blood (unit s (unknown) date) pressure and heart unknown) rate noted. Patient is on metoprolol Result panel 622 (unknown) (no date) (unknown) (unknown) 149 u/l (unkn own) Result panel 623 (unknown) (no date) (unknown) (unknown) < 0.012 ng/ml (unkn own) (unknown) (no date) (unknown) (unknown) < 0.012 ng/ml (unkn own) (unknown) (no date) (unknown) (unknown) 149 u/l (unkn own) Result panel 624 (unknown) (no date) (unknown) (unknown) < 0.012 ng/ml (unkn own) (unknown) (no date) (unknown) (unknown) < 0.012 ng/ml (unkn own) (unknown) (no date) (unknown) (unknown) 0.5 % (unkn own) (unknown) (no date) (unknown) (unknown) 0.69 ng/ml (unkn own) (unknown) (no date) (unknown) (unknown) 149 u/l (unkn own) Result panel 625 (unknown) (no (unknown) (unknown) (no value) (units (unk nown) date) unknown) (unknown) (no (unknown) (unknown) 'Current (units (unkno wn) date) medications' to unknown) include all prescriptions, [id number] products, (unknown) (no (unknown) (unknown) (Lidoderm) (units (unk nown) date) unknown) (unknown) (no (unknown) (unknown) (nutritional) (units ( unknown) date) supplements. unknown) (unknown) (no (unknown) (unknown) (past 8 hours): (units (unknown) date) unknown) (unknown) (no (unknown) (unknown) -EKG with question (units (unknown) date) of ST depressions in unknown) inferolateral leads (unknown) (no (unknown) (unknown) -HEART score of 5 (units (unknown) date) unknown) (unknown) (no (unknown) (unknown) -coninue home (units ( unknown) date) medications unknown) (unknown) (no (unknown) (unknown) -follow up as (units ( unknown) date) outpatient unknown) (unknown) (no (unknown) (unknown) -ordered aspirin (units (unknown) date) unknown) (unknown) (no (unknown) (unknown) -patient has known (units (unknown) date) CAD unknown) (unknown) (no (unknown) (unknown) -plan for nuclear (units (unknown) date) stress test unknown) (unknown) (no (unknown) (unknown) -recent exercise (units (unknown) date) stress test unknown) inconclusive for inducible ischemia (unknown) (no (unknown) (unknown) -trend troponins (units (unknown) date) unknown) (unknown) (no (unknown) (unknown) -troponin negative (units (unknown) date) x2 unknown) (unknown) (no (unknown) (unknown) 09/09/22 09/09/22 (units (unknown) date) 09/09/22 unknown) (unknown) (no (unknown) (unknown) 09/09/22 16:10 (units (unknown) date) unknown) (unknown) (no (unknown) (unknown) 09/09/22 (units (unkno wn) date) unknown) (unknown) (no (unknown) (unknown) 1. Chest pain (units ( unknown) date) unknown) (unknown) (no (unknown) (unknown) 14 systems reviewed (unit s (unknown) date) and negative aside unknown) from what is noted in HPI (unknown) (no (unknown) (unknown) 14:10 16:10 16:10 (units (unknown) date) unknown) (unknown) (no (unknown) (unknown) 15.3, plts 230. (units (unknown) date) Creatinine 0.77. unknown) D-dimer 220. Troponin negative x2. EKG with (unknown) (no (unknown) (unknown) 15:54 09/09/22 (units (unknown) date) unknown) (unknown) (no (unknown) (unknown) 16:10 16:30 19:05 (units (unknown) date) unknown) (unknown) (no (unknown) (unknown) 16:15 09/09/22 (units (unknown) date) unknown) (unknown) (no (unknown) (unknown) 16:19 09/09/22 (units (unknown) date) unknown) (unknown) (no (unknown) (unknown) 16:19 (units (unkno wn) date) unknown) (unknown) (no (unknown) (unknown) 16:30 09/09/22 (units (unknown) date) unknown) (unknown) (no (unknown) (unknown) 16:30 (units (unkno wn) date) unknown) (unknown) (no (unknown) (unknown) 16:35 09/09/22 (units (unknown) date) unknown) (unknown) (no (unknown) (unknown) 16:40 09/09/22 (units (unknown) date) unknown) (unknown) (no (unknown) (unknown) 16:40 (units (unkno wn) date) unknown) (unknown) (no (unknown) (unknown) 16:45 09/09/22 (units (unknown) date) unknown) (unknown) (no (unknown) (unknown) 16:50 09/09/22 (units (unknown) date) unknown) (unknown) (no (unknown) (unknown) 16:50 (units (unkno wn) date) unknown) (unknown) (no (unknown) (unknown) 16:55 09/09/22 (units (unknown) date) unknown) (unknown) (no (unknown) (unknown) 16:55 (units (unkno wn) date) unknown) (unknown) (no (unknown) (unknown) 17:00 09/09/22 (units (unknown) date) unknown) (unknown) (no (unknown) (unknown) 17:05 09/09/22 (units (unknown) date) unknown) (unknown) (no (unknown) (unknown) 17:05 (units (unkno wn) date) unknown) (unknown) (no (unknown) (unknown) 17:10 09/09/22 (units (unknown) date) unknown) (unknown) (no (unknown) (unknown) 17:10 (units (unkno wn) date) unknown) (unknown) (no (unknown) (unknown) 17:14 09/09/22 (units (unknown) date) unknown) (unknown) (no (unknown) (unknown) 17:15 09/09/22 (units (unknown) date) unknown) (unknown) (no (unknown) (unknown) 17:15 (units (unkno wn) date) unknown) (unknown) (no (unknown) (unknown) 17:20 09/09/22 (units (unknown) date) unknown) (unknown) (no (unknown) (unknown) 17:20 (units (unkno wn) date) unknown) (unknown) (no (unknown) (unknown) 17:25 09/09/22 (units (unknown) date) unknown) (unknown) (no (unknown) (unknown) 17:30 09/09/22 (units (unknown) date) unknown) (unknown) (no (unknown) (unknown) 17:30 (units (unkno wn) date) unknown) (unknown) (no (unknown) (unknown) 17:35 09/09/22 (units (unknown) date) unknown) (unknown) (no (unknown) (unknown) 17:35 (units (unkno wn) date) unknown) (unknown) (no (unknown) (unknown) 17:40 09/09/22 (units (unknown) date) unknown) (unknown) (no (unknown) (unknown) 17:42 09/09/22 (units (unknown) date) unknown) (unknown) (no (unknown) (unknown) 17:45 09/09/22 (units (unknown) date) unknown) (unknown) (no (unknown) (unknown) 17:45 (units (unkno wn) date) unknown) (unknown) (no (unknown) (unknown) 17:50 09/09/22 (units (unknown) date) unknown) (unknown) (no (unknown) (unknown) 17:50 (units (unkno wn) date) unknown) (unknown) (no (unknown) (unknown) 17:55 09/09/22 (units (unknown) date) unknown) (unknown) (no (unknown) (unknown) 18:00 09/09/22 (units (unknown) date) unknown) (unknown) (no (unknown) (unknown) 18:00 (units (unkno wn) date) unknown) (unknown) (no (unknown) (unknown) 18:05 09/09/22 (units (unknown) date) unknown) (unknown) (no (unknown) (unknown) 18:05 (units (unkno wn) date) unknown) (unknown) (no (unknown) (unknown) 18:10 09/09/22 (units (unknown) date) unknown) (unknown) (no (unknown) (unknown) 18:10 (units (unkno wn) date) unknown) (unknown) (no (unknown) (unknown) 18:11 09/09/22 (units (unknown) date) unknown) (unknown) (no (unknown) (unknown) 18:15 09/09/22 (units (unknown) date) unknown) (unknown) (no (unknown) (unknown) 18:20 09/09/22 (units (unknown) date) unknown) (unknown) (no (unknown) (unknown) 18:20 (units (unkno wn) date) unknown) (unknown) (no (unknown) (unknown) 18:25 09/09/22 (units (unknown) date) unknown) (unknown) (no (unknown) (unknown) 18:25 (units (unkno wn) date) unknown) (unknown) (no (unknown) (unknown) 18:30 09/09/22 (units (unknown) date) unknown) (unknown) (no (unknown) (unknown) 18:35 09/09/22 (units (unknown) date) unknown) (unknown) (no (unknown) (unknown) 18:35 (units (unkno wn) date) unknown) (unknown) (no (unknown) (unknown) 18:40 09/09/22 (units (unknown) date) unknown) (unknown) (no (unknown) (unknown) 18:40 (units (unkno wn) date) unknown) (unknown) (no (unknown) (unknown) 18:45 09/09/22 (units (unknown) date) unknown) (unknown) (no (unknown) (unknown) 18:50 09/09/22 (units (unknown) date) unknown) (unknown) (no (unknown) (unknown) 18:50 (units (unkno wn) date) unknown) (unknown) (no (unknown) (unknown) 18:55 09/09/22 (units (unknown) date) unknown) (unknown) (no (unknown) (unknown) 18:55 (units (unkno wn) date) unknown) (unknown) (no (unknown) (unknown) 19:00 09/09/22 (units (unknown) date) unknown) (unknown) (no (unknown) (unknown) 19:30 (units (unkno wn) date) unknown) (unknown) (no (unknown) (unknown) 2. Cervical (units (un known) date) radiculopathy unknown) (unknown) (no (unknown) (unknown) 20:00 (units (unkno wn) date) unknown) (unknown) (no (unknown) (unknown) 3. Hypertension (units (unknown) date) unknown) (unknown) (no (unknown) (unknown) : [id number] (units (u nknown) date) unknown) (unknown) (no (unknown) (unknown) ABD: soft, (units (unk nown) date) nontender, unknown) nondistended, no organomegaly (unknown) (no (unknown) (unknown) ADD (attention (units (unknown) date) deficit disorder) unknown) (unknown) (no (unknown) (unknown) ALT 34 (units (unkno wn) date) unknown) (unknown) (no (unknown) (unknown) ALT (units (unkno wn) date) unknown) (unknown) (no (unknown) (unknown) APTT 32 (units (unkno wn) date) unknown) (unknown) (no (unknown) (unknown) APTT (units (unkno wn) date) unknown) (unknown) (no (unknown) (unknown) AST 37 (units (unkno wn) date) unknown) (unknown) (no (unknown) (unknown) AST (units (unkno wn) date) unknown) (unknown) (no (unknown) (unknown) Age/Sex: 52 / M (units (unknown) date) unknown) (unknown) (no (unknown) (unknown) Albumin 4.7 (units (un known) date) unknown) (unknown) (no (unknown) (unknown) Albumin (units (unkno wn) date) unknown) (unknown) (no (unknown) (unknown) Albumin/Globulin (units (unknown) date) Ratio 1.4 unknown) (unknown) (no (unknown) (unknown) Albumin/Globulin (units (unknown) date) Ratio unknown) (unknown) (no (unknown) (unknown) Alkaline (units (unkno wn) date) Phosphatase 60 unknown) (unknown) (no (unknown) (unknown) Alkaline (units (unkno wn) date) Phosphatase unknown) (unknown) (no (unknown) (unknown) Allergies (units (unkn own) date) unknown) (unknown) (no (unknown) (unknown) Allergy/AdvReac (units (unknown) date) Type Severity unknown) Reaction Status Date / Time (unknown) (no (unknown) (unknown) Assessment + Plan (units (unknown) date) narrative: unknown) (unknown) (no (unknown) (unknown) Assessment + Plan (units (unknown) date) unknown) (unknown) (no (unknown) (unknown) Asthma (units (unkno wn) date) unknown) (unknown) (no (unknown) (unknown) BUN 12 (units (unkno wn) date) unknown) (unknown) (no (unknown) (unknown) BUN (units (unkno wn) date) unknown) (unknown) (no (unknown) (unknown) BUN/Creatinine (units (unknown) date) Ratio 15.6 unknown) (unknown) (no (unknown) (unknown) BUN/Creatinine (units (unknown) date) Ratio unknown) (unknown) (no (unknown) (unknown) Baso # (Auto) 100 (units (unknown) date) unknown) (unknown) (no (unknown) (unknown) Baso # (Auto) (units ( unknown) date) unknown) (unknown) (no (unknown) (unknown) Baso % (Auto) 0.9 (units (unknown) date) unknown) (unknown) (no (unknown) (unknown) Baso % (Auto) (units ( unknown) date) unknown) (unknown) (no (unknown) (unknown) Been Physically (units (unknown) date) Hurt or No unknown) (unknown) (no (unknown) (unknown) Blood Pressure (units (unknown) date) 145/69 H unknown) (unknown) (no (unknown) (unknown) Blood Pressure (units (unknown) date) 149/82 H unknown) (unknown) (no (unknown) (unknown) Blood Pressure (units (unknown) date) 150/86 H unknown) (unknown) (no (unknown) (unknown) Blood Pressure (units (unknown) date) 151/59 H 169/95 H unknown) (unknown) (no (unknown) (unknown) Blood Pressure (units (unknown) date) 154/76 H 145/69 H unknown) (unknown) (no (unknown) (unknown) Blood Pressure (units (unknown) date) 155/87 H unknown) (unknown) (no (unknown) (unknown) Blood Pressure (units (unknown) date) 157/88 H 163/86 H unknown) (unknown) (no (unknown) (unknown) Blood Pressure (units (unknown) date) 157/88 H 181/98 H unknown) (unknown) (no (unknown) (unknown) Blood Pressure (units (unknown) date) 158/81 H unknown) (unknown) (no (unknown) (unknown) Blood Pressure (units (unknown) date) 160/85 H 163/86 H unknown) (unknown) (no (unknown) (unknown) Blood Pressure (units (unknown) date) 160/88 H unknown) (unknown) (no (unknown) (unknown) Blood Pressure (units (unknown) date) 161/82 H 153/79 H unknown) (unknown) (no (unknown) (unknown) Blood Pressure (units (unknown) date) 164/90 H 158/88 H unknown) (unknown) (no (unknown) (unknown) Blood Pressure (units (unknown) date) 164/90 H 164/90 H unknown) (unknown) (no (unknown) (unknown) Blood Pressure (units (unknown) date) 170/87 H 185/103 H unknown) (unknown) (no (unknown) (unknown) Blood Pressure (units (unknown) date) 170/87 H unknown) (unknown) (no (unknown) (unknown) Blood Pressure (units (unknown) date) 173/82 H unknown) (unknown) (no (unknown) (unknown) Blood Pressure (units (unknown) date) 175/98 H 190/103 H unknown) (unknown) (no (unknown) (unknown) Blood Pressure (units (unknown) date) 176/97 H 180/103 H unknown) (unknown) (no (unknown) (unknown) Blood Pressure (units (unknown) date) 177/98 H unknown) (unknown) (no (unknown) (unknown) Blood Pressure (units (unknown) date) 179/96 H unknown) (unknown) (no (unknown) (unknown) Blood Pressure (units (unknown) date) 180/98 H unknown) (unknown) (no (unknown) (unknown) Blood Pressure (units (unknown) date) 186/97 H 187/100 H unknown) (unknown) (no (unknown) (unknown) Blood Pressure (units (unknown) date) 193/101 H 190/108 H unknown) (unknown) (no (unknown) (unknown) Blood Pressure (units (unknown) date) unknown) (unknown) (no (unknown) (unknown) CAD. His last cath (units (unknown) date) was a few years ago unknown) and noted a lesion in one artery that was (unknown) (no (unknown) (unknown) CK-MB (CK-2) 0.77 (units (unknown) date) 0.69 unknown) (unknown) (no (unknown) (unknown) CK-MB (CK-2) Rel (units (unknown) date) Index 0.5 L 0.5 L unknown) (unknown) (no (unknown) (unknown) CK-MB (CK-2) Rel (units (unknown) date) Index unknown) (unknown) (no (unknown) (unknown) CK-MB (CK-2) (units (u nknown) date) unknown) (unknown) (no (unknown) (unknown) CODE: Full (units (unk nown) date) unknown) (unknown) (no (unknown) (unknown) CV: regular rate (units (unknown) date) and rhythm, no unknown) murmurs (unknown) (no (unknown) (unknown) Calcium 9.5 (units (un known) date) unknown) (unknown) (no (unknown) (unknown) Calcium (units (unkno wn) date) unknown) (unknown) (no (unknown) (unknown) Carbon Dioxide 29 (units (unknown) date) unknown) (unknown) (no (unknown) (unknown) Carbon Dioxide (units (unknown) date) unknown) (unknown) (no (unknown) (unknown) Cervical (units (unkno wn) date) radiculopathy due to unknown) osteoarthritis of spine (unknown) (no (unknown) (unknown) Chief complaint: (units (unknown) date) neck and chest pain unknown) (unknown) (no (unknown) (unknown) Chloride 102 (units (u nknown) date) unknown) (unknown) (no (unknown) (unknown) Chloride (units (unkno wn) date) unknown) (unknown) (no (unknown) (unknown) Coronary artery (units (unknown) date) disease unknown) (unknown) (no (unknown) (unknown) Creatinine 0.77 (units (unknown) date) unknown) (unknown) (no (unknown) (unknown) Creatinine (units (unk nown) date) unknown) (unknown) (no (unknown) (unknown) Critical Care time: (unit s (unknown) date) unknown) (unknown) (no (unknown) (unknown) D-Dimer 220 (units (un known) date) unknown) (unknown) (no (unknown) (unknown) D-Dimer (units (unkno wn) date) unknown) (unknown) (no (unknown) (unknown) : 1970 (units (unknown) date) Acct:[id number] unknown) (unknown) (no (unknown) (unknown) Date of Service: (units (unknown) date) 09/09/22 unknown) (unknown) (no (unknown) (unknown) Depression (units (unk nown) date) unknown) (unknown) (no (unknown) (unknown) EXT: warm and well (units (unknown) date) perfused with no unknown) edema (unknown) (no (unknown) (unknown) Environment (units (un known) date) unknown) (unknown) (no (unknown) (unknown) Eos # (Auto) 200 (units (unknown) date) unknown) (unknown) (no (unknown) (unknown) Eos # (Auto) (units (u nknown) date) unknown) (unknown) (no (unknown) (unknown) Eos % (Auto) 2.7 (units (unknown) date) unknown) (unknown) (no (unknown) (unknown) Eos % (Auto) (units (u nknown) date) unknown) (unknown) (no (unknown) (unknown) Essential (units (unkn own) date) hypertension unknown) (unknown) (no (unknown) (unknown) Estimated GFR > 60 (units (unknown) date) unknown) (unknown) (no (unknown) (unknown) Estimated GFR (units ( unknown) date) unknown) (unknown) (no (unknown) (unknown) Exam Narrative: (units (unknown) date) unknown) (unknown) (no (unknown) (unknown) Exam (units (unkno wn) date) unknown) (unknown) (no (unknown) (unknown) Family + Social (units (unknown) date) History unknown) (unknown) (no (unknown) (unknown) Family History (units (unknown) date) (Reviewed 09/09/22 @ unknown) 20:49 by Daniel Hector MD) (unknown) (no (unknown) (unknown) Father Hypertension (unit s (unknown) date) unknown) (unknown) (no (unknown) (unknown) Feels Safe in (units ( unknown) date) Current Yes unknown) (unknown) (no (unknown) (unknown) GEN: no acute (units ( unknown) date) distress unknown) (unknown) (no (unknown) (unknown) Generalized anxiety (unit s (unknown) date) disorder with panic unknown) attacks (unknown) (no (unknown) (unknown) Globulin 3.4 (units (u nknown) date) unknown) (unknown) (no (unknown) (unknown) Globulin (units (unkno wn) date) unknown) (unknown) (no (unknown) (unknown) Glucose 190 H (units ( unknown) date) unknown) (unknown) (no (unknown) (unknown) Glucose (units (unkno wn) date) unknown) (unknown) (no (unknown) (unknown) HEENT: moist mucous (unit s (unknown) date) membranes, PERRL unknown) (unknown) (no (unknown) (unknown) Hct 46.0 (units (unkno wn) date) unknown) (unknown) (no (unknown) (unknown) Hct (units (unkno wn) date) unknown) (unknown) (no (unknown) (unknown) Herniated (units (unkn own) date) intervertebral disc unknown) of lumbar spine (unknown) (no (unknown) (unknown) Hgb 15.3 (units (unkno wn) date) unknown) (unknown) (no (unknown) (unknown) Hgb (units (unkno wn) date) unknown) (unknown) (no (unknown) (unknown) History + Physical (units (unknown) date) Report unknown) (unknown) (no (unknown) (unknown) History of Present (units (unknown) date) Illness unknown) (unknown) (no (unknown) (unknown) Home Medications (units (unknown) date) and Allergies unknown) (unknown) (no (unknown) (unknown) Home Medications (units (unknown) date) unknown) (unknown) (no (unknown) (unknown) Hx of cervical (units (unknown) date) discectomy () unknown) (unknown) (no (unknown) (unknown) Hyperlipidemia (units (unknown) date) unknown) (unknown) (no (unknown) (unknown) Hypertension (units (u nknown) date) unknown) (unknown) (no (unknown) (unknown) I have utilized all (unit s (unknown) date) available resources unknown) to obtain, update, or review the (unknown) (no (unknown) (unknown) I have utilized all (unit s (unknown) date) avilable resources unknown) to reconcile the patient's home (unknown) (no (unknown) (unknown) I spent a total of (units (unknown) date) [] minutes of unknown) critical care time on this patient's care (unknown) (no (unknown) (unknown) INR 1.0 (units (unkno wn) date) unknown) (unknown) (no (unknown) (unknown) INR (units (unkno wn) date) unknown) (unknown) (no (unknown) (unknown) In the ED workup (units (unknown) date) was done, vitals unknown) notable for afebrile, heart rate in 110s, o2 (unknown) (no (unknown) (unknown) [facility] (units (unknown) date) [address] unknown) [place] [address] (unknown) (no (unknown) (unknown) Laboratory Results (units (unknown) date) - last 24 hr unknown) (unknown) (no (unknown) (unknown) Labs (units (unkno wn) date) unknown) (unknown) (no (unknown) (unknown) Labs: (units (unkno wn) date) unknown) (unknown) (no (unknown) (unknown) Lipase 51 (units (unkn own) date) unknown) (unknown) (no (unknown) (unknown) Lipase (units (unkno wn) date) unknown) (unknown) (no (unknown) (unknown) Lymph # (Auto) 1300 (unit s (unknown) date) unknown) (unknown) (no (unknown) (unknown) Lymph # (Auto) (units (unknown) date) unknown) (unknown) (no (unknown) (unknown) Lymph % (Auto) 14.9 (unit s (unknown) date) L unknown) (unknown) (no (unknown) (unknown) Lymph % (Auto) (units (unknown) date) unknown) (unknown) (no (unknown) (unknown) MCH 30.3 (units (unkno wn) date) unknown) (unknown) (no (unknown) (unknown) MCH (units (unkno wn) date) unknown) (unknown) (no (unknown) (unknown) MCHC 33.2 (units (unkn own) date) unknown) (unknown) (no (unknown) (unknown) MCHC (units (unkno wn) date) unknown) (unknown) (no (unknown) (unknown) MCV 91.2 (units (unkno wn) date) unknown) (unknown) (no (unknown) (unknown) MCV (units (unkno wn) date) unknown) (unknown) (no (unknown) (unknown) MIPS - Meds (units (un known) date) unknown) (unknown) (no (unknown) (unknown) Magnesium 2.0 (units ( unknown) date) unknown) (unknown) (no (unknown) (unknown) Magnesium (units (unkn own) date) unknown) (unknown) (no (unknown) (unknown) Medical History (units (unknown) date) (Reviewed 09/09/22 @ unknown) 20:49 by Daniel Hector MD) (unknown) (no (unknown) (unknown) Medication (units (unk nown) date) Instructions unknown) Recorded Confirmed Type (unknown) (no (unknown) (unknown) Meds (units (unkno wn) date) unknown) (unknown) (no (unknown) (unknown) Mcintosh # (Auto) 500 (units (unknown) date) unknown) (unknown) (no (unknown) (unknown) Mc[place]osh # (Auto) (units ( unknown) date) unknown) (unknown) (no (unknown) (unknown) Mc[place]osh % (Auto) 5.5 (units (unknown) date) unknown) (unknown) (no (unknown) (unknown) Mc[place]osh % (Auto) (units ( unknown) date) unknown) (unknown) (no (unknown) (unknown) Mother Diabetes (units (unknown) date) mellitus unknown) (unknown) (no (unknown) (unknown) Mr. Alonso is a 52M (unit s (unknown) date) with CAD, cervical unknown) radiculopathy, opiate addiction, HTN who (unknown) (no (unknown) (unknown) NECK: trachea (units ( unknown) date) midline, no JVD unknown) (unknown) (no (unknown) (unknown) NEURO: awake, (units ( unknown) date) alert, oriented, no unknown) focal deficits (unknown) (no (unknown) (unknown) Narrative (units (unkn own) date) unknown) (unknown) (no (unknown) (unknown) Narrative: (units (unk nown) date) unknown) (unknown) (no (unknown) (unknown) Neut # (Auto) 6400 (units (unknown) date) unknown) (unknown) (no (unknown) (unknown) Neut # (Auto) (units ( unknown) date) unknown) (unknown) (no (unknown) (unknown) Neut % (Auto) 76.0 (units (unknown) date) H unknown) (unknown) (no (unknown) (unknown) Neut % (Auto) (units ( unknown) date) unknown) (unknown) (no (unknown) (unknown) Objective (units (unkn own) date) unknown) (unknown) (no (unknown) (unknown) Opiate addiction (units (unknown) date) unknown) (unknown) (no (unknown) (unknown) Oxygen Delivery (units (unknown) date) Method Room Air unknown) (unknown) (no (unknown) (unknown) Oxygen Delivery (units (unknown) date) Method unknown) (unknown) (no (unknown) (unknown) PT 11.1 (units (unkno wn) date) unknown) (unknown) (no (unknown) (unknown) PT (units (unkno wn) date) unknown) (unknown) (no (unknown) (unknown) PULM: clear (units (un known) date) bilaterally unknown) 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 unknown) (unknown) (no (unknown) (unknown) Patient History (units (unknown) date) unknown) (unknown) (no (unknown) (unknown) Patient: (units (unknown) date) IIAnthony L MR# unknown) (unknown) (no (unknown) (unknown) Peripheral (units (unk nown) date) neuropathy unknown) (unknown) (no (unknown) (unknown) Plt Count 230 (units ( unknown) date) unknown) (unknown) (no (unknown) (unknown) Plt Count (units (unkn own) date) unknown) (unknown) (no (unknown) (unknown) Potassium 4.2 (units ( unknown) date) unknown) (unknown) (no (unknown) (unknown) Potassium (units (unkn own) date) unknown) (unknown) (no (unknown) (unknown) Provider: (units (unkn own) date) Daniel Hector MD unknown) (unknown) (no (unknown) (unknown) Proxy: Ada (units (u nknown) date) Rapprabian, life unknown) partner (unknown) (no (unknown) (unknown) Pulse Oximetry 91 (units (unknown) date) 92 unknown) (unknown) (no (unknown) (unknown) Pulse Oximetry 91 (units (unknown) date) unknown) (unknown) (no (unknown) (unknown) Pulse Oximetry 92 (units (unknown) date) 92 unknown) (unknown) (no (unknown) (unknown) Pulse Oximetry 92 (units (unknown) date) unknown) (unknown) (no (unknown) (unknown) Pulse Oximetry 93 (units (unknown) date) 93 unknown) (unknown) (no (unknown) (unknown) Pulse Oximetry 93 (units (unknown) date) unknown) (unknown) (no (unknown) (unknown) Pulse Oximetry 94 (units (unknown) date) 94 unknown) (unknown) (no (unknown) (unknown) Pulse Oximetry 94 (units (unknown) date) 95 unknown) (unknown) (no (unknown) (unknown) Pulse Oximetry 94 (units (unknown) date) unknown) (unknown) (no (unknown) (unknown) Pulse Oximetry 95 (units (unknown) date) 94 unknown) (unknown) (no (unknown) (unknown) Pulse Oximetry 95 (units (unknown) date) 95 unknown) (unknown) (no (unknown) (unknown) Pulse Oximetry 95 (units (unknown) date) 96 unknown) (unknown) (no (unknown) (unknown) Pulse Oximetry 95 (units (unknown) date) unknown) (unknown) (no (unknown) (unknown) Pulse Oximetry 96 (units (unknown) date) unknown) (unknown) (no (unknown) (unknown) Pulse Oximetry 97 (units (unknown) date) unknown) (unknown) (no (unknown) (unknown) Pulse Oximetry 98 (units (unknown) date) 95 96 unknown) (unknown) (no (unknown) (unknown) Pulse Rate 100 H (units (unknown) date) 120 H unknown) (unknown) (no (unknown) (unknown) Pulse Rate 101 H (units (unknown) date) unknown) (unknown) (no (unknown) (unknown) Pulse Rate 102 H (units (unknown) date) 103 H unknown) (unknown) (no (unknown) (unknown) Pulse Rate 102 H 98 (unit s (unknown) date) H unknown) (unknown) (no (unknown) (unknown) Pulse Rate 105 H (units (unknown) date) 100 H unknown) (unknown) (no (unknown) (unknown) Pulse Rate 105 H (units (unknown) date) unknown) (unknown) (no (unknown) (unknown) Pulse Rate 106 H (units (unknown) date) unknown) (unknown) (no (unknown) (unknown) Pulse Rate 119 H (units (unknown) date) 112 H 110 H unknown) (unknown) (no (unknown) (unknown) Pulse Rate 79 (units ( unknown) date) unknown) (unknown) (no (unknown) (unknown) Pulse Rate 86 82 (units (unknown) date) unknown) (unknown) (no (unknown) (unknown) Pulse Rate 89 88 (units (unknown) date) unknown) (unknown) (no (unknown) (unknown) Pulse Rate 90 90 (units (unknown) date) unknown) (unknown) (no (unknown) (unknown) Pulse Rate 91 H (units (unknown) date) unknown) (unknown) (no (unknown) (unknown) Pulse Rate 92 H (units (unknown) date) unknown) (unknown) (no (unknown) (unknown) Pulse Rate 93 H (units (unknown) date) unknown) (unknown) (no (unknown) (unknown) Pulse Rate 96 H (units (unknown) date) unknown) (unknown) (no (unknown) (unknown) Pulse Rate 97 H 100 (unit s (unknown) date) H 97 H unknown) (unknown) (no (unknown) (unknown) Pulse Rate 97 H 102 (unit s (unknown) date) H unknown) (unknown) (no (unknown) (unknown) Pulse Rate 97 H 96 (units (unknown) date) H unknown) (unknown) (no (unknown) (unknown) Pulse Rate 97 H 99 (units (unknown) date) H unknown) (unknown) (no (unknown) (unknown) Pulse Rate 97 H (units (unknown) date) unknown) (unknown) (no (unknown) (unknown) Pulse Rate 98 H 97 (units (unknown) date) H unknown) (unknown) (no (unknown) (unknown) Pulse Rate 99 H (units (unknown) date) unknown) (unknown) (no (unknown) (unknown) Quality (units (unkno wn) date) unknown) (unknown) (no (unknown) (unknown) RBC 5.04 (units (unkno wn) date) unknown) (unknown) (no (unknown) (unknown) RBC (units (unkno wn) date) unknown) (unknown) (no (unknown) (unknown) RDW 13.0 (units (unkno wn) date) unknown) (unknown) (no (unknown) (unknown) RDW (units (unkno wn) date) unknown) (unknown) (no (unknown) (unknown) REACTION' (units (unkn own) date) unknown) (unknown) (no (unknown) (unknown) RLS (restless legs (units (unknown) date) syndrome) unknown) (unknown) (no (unknown) (unknown) Respiratory Rate 11 (unit s (unknown) date) L unknown) (unknown) (no (unknown) (unknown) Respiratory Rate 12 (unit s (unknown) date) unknown) (unknown) (no (unknown) (unknown) Respiratory Rate 13 (unit s (unknown) date) unknown) (unknown) (no (unknown) (unknown) Respiratory Rate 14 (unit s (unknown) date) unknown) (unknown) (no (unknown) (unknown) Respiratory Rate 16 (unit s (unknown) date) unknown) (unknown) (no (unknown) (unknown) Respiratory Rate 18 (unit s (unknown) date) 19 unknown) (unknown) (no (unknown) (unknown) Respiratory Rate 20 (unit s (unknown) date) unknown) (unknown) (no (unknown) (unknown) Respiratory Rate 24 (unit s (unknown) date) unknown) (unknown) (no (unknown) (unknown) Respiratory Rate (units (unknown) date) unknown) (unknown) (no (unknown) (unknown) Review of Systems (units (unknown) date) unknown) (unknown) (no (unknown) (unknown) SARS-CoV-2 (PCR) (units (unknown) date) Negative unknown) (unknown) (no (unknown) (unknown) SARS-CoV-2 (PCR) (units (unknown) date) unknown) (unknown) (no (unknown) (unknown) Safety + (units (unkno wn) date) Behavioral: unknown) (unknown) (no (unknown) (unknown) Signed By: (units (unk nown) date) unknown) (unknown) (no (unknown) (unknown) Smoking Status (units (unknown) date) Current every day unknown) smoker (unknown) (no (unknown) (unknown) Social History: (units (unknown) date) unknown) (unknown) (no (unknown) (unknown) Sodium 138 (units (unk nown) date) unknown) (unknown) (no (unknown) (unknown) Sodium (units (unkno wn) date) unknown) (unknown) (no (unknown) (unknown) Spinal stenosis of (units (unknown) date) lumbar region with unknown) neurogenic claudication (unknown) (no (unknown) (unknown) Spondylolisthesis (units (unknown) date) of lumbar region unknown) (unknown) (no (unknown) (unknown) Stenosis of artery (units (unknown) date) unknown) (unknown) (no (unknown) (unknown) Substance Use Type (units (unknown) date) does not use unknown) (unknown) (no (unknown) (unknown) Surgical History (units (unknown) date) (Reviewed 09/09/22 @ unknown) 20:49 by Daniel Hector MD) (unknown) (no (unknown) (unknown) Temperature 98.1 F (units (unknown) date) unknown) (unknown) (no (unknown) (unknown) Temperature (units (un known) date) unknown) (unknown) (no (unknown) (unknown) Threatened By a (units (unknown) date) Person unknown) (unknown) (no (unknown) (unknown) Time Spent With (units (unknown) date) Patient unknown) (unknown) (no (unknown) (unknown) Tobacco + Substance (unit s (unknown) date) use: unknown) (unknown) (no (unknown) (unknown) Tobacco type (units (u nknown) date) cigarettes unknown) (unknown) (no (unknown) (unknown) Total Bilirubin 0.5 (unit s (unknown) date) unknown) (unknown) (no (unknown) (unknown) Total Bilirubin (units (unknown) date) unknown) (unknown) (no (unknown) (unknown) Total Creatine (units (unknown) date) Kinase 163 149 unknown) (unknown) (no (unknown) (unknown) Total Creatine (units (unknown) date) Kinase unknown) (unknown) (no (unknown) (unknown) Total Protein 8.1 (units (unknown) date) unknown) (unknown) (no (unknown) (unknown) Total Protein (units ( unknown) date) unknown) (unknown) (no (unknown) (unknown) Troponin I < 0.012 (units (unknown) date) < 0.012 unknown) (unknown) (no (unknown) (unknown) Troponin I (units (unk nown) date) unknown) (unknown) (no (unknown) (unknown) Vital Signs (units (un known) date) unknown) (unknown) (no (unknown) (unknown) Vitamin D (units (unkn own) date) deficiency unknown) (unknown) (no (unknown) (unknown) WBC 8.4 (units (unkno wn) date) unknown) (unknown) (no (unknown) (unknown) WBC (units (unkno wn) date) unknown) (unknown) (no (unknown) (unknown) [Embedded Image Not (unit s (unknown) date) Available] unknown) (unknown) (no (unknown) (unknown) alcohol intake (units (unknown) date) frequency a few unknown) times a month (unknown) (no (unknown) (unknown) alcohol intake (units (unknown) date) never unknown) (unknown) (no (unknown) (unknown) alprazolam 0.5 mg (units (unknown) date) tablet 0.5 mg PO unknown) BEDTIME PRN sleep #14 05/20/22 05/20/22 Rx (unknown) (no (unknown) (unknown) arm. Today he had (units (unknown) date) let sided chest pain unknown) that is somewhat different than his (unknown) (no (unknown) (unknown) aspirin 81 mg (units ( unknown) date) tablet,delayed 81 mg unknown) PO DAILY 04/11/22 05/20/22 History (unknown) (no (unknown) (unknown) atorvastatin 40 mg (units (unknown) date) tablet 40 mg PO unknown) BEDTIME #90 tabs 04/11/22 05/20/22 Rx (unknown) (no (unknown) (unknown) bupropion HCl 150 (units (unknown) date) mg 24 hr tablet, 150 unknown) mg PO BID #60 tabs 05/20/22 05/20/22 Rx (unknown) (no (unknown) (unknown) cervical (units (unkno wn) date) radiculopathy. He unknown) has developed pain that radiates down the entire left (unknown) (no (unknown) (unknown) droperidol (units (unk nown) date) [DROPERIDOL] Allergy unknown) Mild 'COGENIC Verified 07/12/22 14:01 (unknown) (no (unknown) (unknown) extended release (units (unknown) date) unknown) (unknown) (no (unknown) (unknown) few months ago for (units (unknown) date) similar pain and had unknown) an inconclusive exercise stress test and (unknown) (no (unknown) (unknown) gabapentin 600 mg (units (unknown) date) tablet 600 mg PO TID unknown) #270 tabs 05/20/22 05/20/22 Rx (unknown) (no (unknown) (unknown) herbals, (units (unkno wn) date) cannabis/cannabidiol unknown) products, and vitamin/mineral/diet sue (unknown) (no (unknown) (unknown) household members (units (unknown) date) family unknown) (unknown) (no (unknown) (unknown) is pending a (units (u nknown) date) nuclear stress test. unknown) (unknown) (no (unknown) (unknown) lidocaine 5 % (units ( unknown) date) topical patch 2 unknown) patch topical DAILY #30 ea 07/12/22 Rx (unknown) (no (unknown) (unknown) medications (units (un known) date) unknown) (unknown) (no (unknown) (unknown) metoprolol tartrate (unit s (unknown) date) 25 mg tablet 25 mg unknown) PO BID #180 tabs 04/09/22 05/20/22 Rx (unknown) (no (unknown) (unknown) mg tablet (units (unkn own) date) (Percocet) unknown) (unknown) (no (unknown) (unknown) normal neck and arm (unit s (unknown) date) pain. No shortness unknown) of breath. Of note he does have known (unknown) (no (unknown) (unknown) not large enough to (unit s (unknown) date) be intervened upon. unknown) He is taking aspirin. He was admitted a (unknown) (no (unknown) (unknown) oxycodone-acetamino (unit s (unknown) date) phen 5 mg-325 1 tab unknown) PO Q8H PRN pain #10 tabs 07/12/22 Rx (unknown) (no (unknown) (unknown) patient?s current (units (unknown) date) medications. [If unknown) Yes, STOP here]: Yes (unknown) (no (unknown) (unknown) presented to the (units (unknown) date) hospital chest unknown) painn. He has a long history of neck pain due to (unknown) (no (unknown) (unknown) release (units (unkno wn) date) unknown) (unknown) (no (unknown) (unknown) sats 98% on room (units (unknown) date) air, blood pressure unknown) 170s/90s. Labs notable for WBC 8.4, hgb (unknown) (no (unknown) (unknown) sertraline 50 mg (units (unknown) date) tablet 50 mg PO unknown) DAILY #90 tabs 04/09/22 05/20/22 Rx (unknown) (no (unknown) (unknown) sinus tachcyardia. (units (unknown) date) He was admitted for unknown) further treatment. (unknown) (no (unknown) (unknown) tabs (units (unkno wn) date) unknown) (unknown) (no (unknown) (unknown) today; this time is (unit s (unknown) date) exclusive of unknown) procedural time. Result panel [id number] (unknown) (no (unknown) (unknown) (no value) (units (unk nown) date) unknown) (unknown) (no (unknown) (unknown) 'Current (units (unkno wn) date) medications' to unknown) include all prescriptions, [id number] products, (unknown) (no (unknown) (unknown) (Lidoderm) (units (unk nown) date) unknown) (unknown) (no (unknown) (unknown) (nutritional) (units ( unknown) date) supplements. unknown) (unknown) (no (unknown) (unknown) (past 8 hours): (units (unknown) date) unknown) (unknown) (no (unknown) (unknown) -EKG with question (units (unknown) date) of ST depressions in unknown) inferolateral leads (unknown) (no (unknown) (unknown) -HEART score of 5 (units (unknown) date) unknown) (unknown) (no (unknown) (unknown) -coninue home (units ( unknown) date) medications unknown) (unknown) (no (unknown) (unknown) -follow up as (units ( unknown) date) outpatient unknown) (unknown) (no (unknown) (unknown) -ordered aspirin (units (unknown) date) unknown) (unknown) (no (unknown) (unknown) -patient has known (units (unknown) date) CAD unknown) (unknown) (no (unknown) (unknown) -plan for nuclear (units (unknown) date) stress test unknown) (unknown) (no (unknown) (unknown) -recent exercise (units (unknown) date) stress test unknown) inconclusive for inducible ischemia (unknown) (no (unknown) (unknown) -trend troponins (units (unknown) date) unknown) (unknown) (no (unknown) (unknown) -troponin negative (units (unknown) date) x2 unknown) (unknown) (no (unknown) (unknown) 09/09/22 09/09/22 (units (unknown) date) 09/09/22 unknown) (unknown) (no (unknown) (unknown) 09/09/22 16:10 (units (unknown) date) unknown) (unknown) (no (unknown) (unknown) 09/09/22 (units (unkno wn) date) unknown) (unknown) (no (unknown) (unknown) 1. Chest pain (units ( unknown) date) unknown) (unknown) (no (unknown) (unknown) 14 systems reviewed (unit s (unknown) date) and negative aside unknown) from what is noted in HPI (unknown) (no (unknown) (unknown) 14:10 16:10 16:10 (units (unknown) date) unknown) (unknown) (no (unknown) (unknown) 15.3, plts 230. (units (unknown) date) Creatinine 0.77. unknown) D-dimer 220. Troponin negative x2. EKG with (unknown) (no (unknown) (unknown) 15:54 09/09/22 (units (unknown) date) unknown) (unknown) (no (unknown) (unknown) 16:10 16:30 19:05 (units (unknown) date) unknown) (unknown) (no (unknown) (unknown) 16:15 09/09/22 (units (unknown) date) unknown) (unknown) (no (unknown) (unknown) 16:19 09/09/22 (units (unknown) date) unknown) (unknown) (no (unknown) (unknown) 16:19 (units (unkno wn) date) unknown) (unknown) (no (unknown) (unknown) 16:30 09/09/22 (units (unknown) date) unknown) (unknown) (no (unknown) (unknown) 16:30 (units (unkno wn) date) unknown) (unknown) (no (unknown) (unknown) 16:35 09/09/22 (units (unknown) date) unknown) (unknown) (no (unknown) (unknown) 16:40 09/09/22 (units (unknown) date) unknown) (unknown) (no (unknown) (unknown) 16:40 (units (unkno wn) date) unknown) (unknown) (no (unknown) (unknown) 16:45 09/09/22 (units (unknown) date) unknown) (unknown) (no (unknown) (unknown) 16:50 09/09/22 (units (unknown) date) unknown) (unknown) (no (unknown) (unknown) 16:50 (units (unkno wn) date) unknown) (unknown) (no (unknown) (unknown) 16:55 09/09/22 (units (unknown) date) unknown) (unknown) (no (unknown) (unknown) 16:55 (units (unkno wn) date) unknown) (unknown) (no (unknown) (unknown) 17:00 09/09/22 (units (unknown) date) unknown) (unknown) (no (unknown) (unknown) 17:05 09/09/22 (units (unknown) date) unknown) (unknown) (no (unknown) (unknown) 17:05 (units (unkno wn) date) unknown) (unknown) (no (unknown) (unknown) 17:10 09/09/22 (units (unknown) date) unknown) (unknown) (no (unknown) (unknown) 17:10 (units (unkno wn) date) unknown) (unknown) (no (unknown) (unknown) 17:14 09/09/22 (units (unknown) date) unknown) (unknown) (no (unknown) (unknown) 17:15 09/09/22 (units (unknown) date) unknown) (unknown) (no (unknown) (unknown) 17:15 (units (unkno wn) date) unknown) (unknown) (no (unknown) (unknown) 17:20 09/09/22 (units (unknown) date) unknown) (unknown) (no (unknown) (unknown) 17:20 (units (unkno wn) date) unknown) (unknown) (no (unknown) (unknown) 17:25 09/09/22 (units (unknown) date) unknown) (unknown) (no (unknown) (unknown) 17:30 09/09/22 (units (unknown) date) unknown) (unknown) (no (unknown) (unknown) 17:30 (units (unkno wn) date) unknown) (unknown) (no (unknown) (unknown) 17:35 09/09/22 (units (unknown) date) unknown) (unknown) (no (unknown) (unknown) 17:35 (units (unkno wn) date) unknown) (unknown) (no (unknown) (unknown) 17:40 09/09/22 (units (unknown) date) unknown) (unknown) (no (unknown) (unknown) 17:42 09/09/22 (units (unknown) date) unknown) (unknown) (no (unknown) (unknown) 17:45 09/09/22 (units (unknown) date) unknown) (unknown) (no (unknown) (unknown) 17:45 (units (unkno wn) date) unknown) (unknown) (no (unknown) (unknown) 17:50 09/09/22 (units (unknown) date) unknown) (unknown) (no (unknown) (unknown) 17:50 (units (unkno wn) date) unknown) (unknown) (no (unknown) (unknown) 17:55 09/09/22 (units (unknown) date) unknown) (unknown) (no (unknown) (unknown) 18:00 09/09/22 (units (unknown) date) unknown) (unknown) (no (unknown) (unknown) 18:00 (units (unkno wn) date) unknown) (unknown) (no (unknown) (unknown) 18:05 09/09/22 (units (unknown) date) unknown) (unknown) (no (unknown) (unknown) 18:05 (units (unkno wn) date) unknown) (unknown) (no (unknown) (unknown) 18:10 09/09/22 (units (unknown) date) unknown) (unknown) (no (unknown) (unknown) 18:10 (units (unkno wn) date) unknown) (unknown) (no (unknown) (unknown) 18:11 09/09/22 (units (unknown) date) unknown) (unknown) (no (unknown) (unknown) 18:15 09/09/22 (units (unknown) date) unknown) (unknown) (no (unknown) (unknown) 18:20 09/09/22 (units (unknown) date) unknown) (unknown) (no (unknown) (unknown) 18:20 (units (unkno wn) date) unknown) (unknown) (no (unknown) (unknown) 18:25 09/09/22 (units (unknown) date) unknown) (unknown) (no (unknown) (unknown) 18:25 (units (unkno wn) date) unknown) (unknown) (no (unknown) (unknown) 18:30 09/09/22 (units (unknown) date) unknown) (unknown) (no (unknown) (unknown) 18:35 09/09/22 (units (unknown) date) unknown) (unknown) (no (unknown) (unknown) 18:35 (units (unkno wn) date) unknown) (unknown) (no (unknown) (unknown) 18:40 09/09/22 (units (unknown) date) unknown) (unknown) (no (unknown) (unknown) 18:40 (units (unkno wn) date) unknown) (unknown) (no (unknown) (unknown) 18:45 09/09/22 (units (unknown) date) unknown) (unknown) (no (unknown) (unknown) 18:50 09/09/22 (units (unknown) date) unknown) (unknown) (no (unknown) (unknown) 18:50 (units (unkno wn) date) unknown) (unknown) (no (unknown) (unknown) 18:55 09/09/22 (units (unknown) date) unknown) (unknown) (no (unknown) (unknown) 18:55 (units (unkno wn) date) unknown) (unknown) (no (unknown) (unknown) 19:00 09/09/22 (units (unknown) date) unknown) (unknown) (no (unknown) (unknown) 19:30 (units (unkno wn) date) unknown) (unknown) (no (unknown) (unknown) 2. Cervical (units (un known) date) radiculopathy unknown) (unknown) (no (unknown) (unknown) 20:00 (units (unkno wn) date) unknown) (unknown) (no (unknown) (unknown) 3. Hypertension (units (unknown) date) unknown) (unknown) (no (unknown) (unknown) : [id number] (units (u nknown) date) unknown) (unknown) (no (unknown) (unknown) ABD: soft, (units (unk nown) date) nontender, unknown) nondistended, no organomegaly (unknown) (no (unknown) (unknown) ADD (attention (units (unknown) date) deficit disorder) unknown) (unknown) (no (unknown) (unknown) ALT 34 (units (unkno wn) date) unknown) (unknown) (no (unknown) (unknown) ALT (units (unkno wn) date) unknown) (unknown) (no (unknown) (unknown) APTT 32 (units (unkno wn) date) unknown) (unknown) (no (unknown) (unknown) APTT (units (unkno wn) date) unknown) (unknown) (no (unknown) (unknown) AST 37 (units (unkno wn) date) unknown) (unknown) (no (unknown) (unknown) AST (units (unkno wn) date) unknown) (unknown) (no (unknown) (unknown) Age/Sex: 52 / M (units (unknown) date) unknown) (unknown) (no (unknown) (unknown) Albumin 4.7 (units (un known) date) unknown) (unknown) (no (unknown) (unknown) Albumin (units (unkno wn) date) unknown) (unknown) (no (unknown) (unknown) Albumin/Globulin (units (unknown) date) Ratio 1.4 unknown) (unknown) (no (unknown) (unknown) Albumin/Globulin (units (unknown) date) Ratio unknown) (unknown) (no (unknown) (unknown) Alkaline (units (unkno wn) date) Phosphatase 60 unknown) (unknown) (no (unknown) (unknown) Alkaline (units (unkno wn) date) Phosphatase unknown) (unknown) (no (unknown) (unknown) Allergies (units (unkn own) date) unknown) (unknown) (no (unknown) (unknown) Allergy/AdvReac (units (unknown) date) Type Severity unknown) Reaction Status Date / Time (unknown) (no (unknown) (unknown) Assessment + Plan (units (unknown) date) narrative: unknown) (unknown) (no (unknown) (unknown) Assessment + Plan (units (unknown) date) unknown) (unknown) (no (unknown) (unknown) Asthma (units (unkno wn) date) unknown) (unknown) (no (unknown) (unknown) BUN 12 (units (unkno wn) date) unknown) (unknown) (no (unknown) (unknown) BUN (units (unkno wn) date) unknown) (unknown) (no (unknown) (unknown) BUN/Creatinine (units (unknown) date) Ratio 15.6 unknown) (unknown) (no (unknown) (unknown) BUN/Creatinine (units (unknown) date) Ratio unknown) (unknown) (no (unknown) (unknown) Baso # (Auto) 100 (units (unknown) date) unknown) (unknown) (no (unknown) (unknown) Baso # (Auto) (units ( unknown) date) unknown) (unknown) (no (unknown) (unknown) Baso % (Auto) 0.9 (units (unknown) date) unknown) (unknown) (no (unknown) (unknown) Baso % (Auto) (units ( unknown) date) unknown) (unknown) (no (unknown) (unknown) Been Physically (units (unknown) date) Hurt or No unknown) (unknown) (no (unknown) (unknown) Blood Pressure (units (unknown) date) 145/69 H unknown) (unknown) (no (unknown) (unknown) Blood Pressure (units (unknown) date) 149/82 H unknown) (unknown) (no (unknown) (unknown) Blood Pressure (units (unknown) date) 150/86 H unknown) (unknown) (no (unknown) (unknown) Blood Pressure (units (unknown) date) 151/59 H 169/95 H unknown) (unknown) (no (unknown) (unknown) Blood Pressure (units (unknown) date) 154/76 H 145/69 H unknown) (unknown) (no (unknown) (unknown) Blood Pressure (units (unknown) date) 155/87 H unknown) (unknown) (no (unknown) (unknown) Blood Pressure (units (unknown) date) 157/88 H 163/86 H unknown) (unknown) (no (unknown) (unknown) Blood Pressure (units (unknown) date) 157/88 H 181/98 H unknown) (unknown) (no (unknown) (unknown) Blood Pressure (units (unknown) date) 158/81 H unknown) (unknown) (no (unknown) (unknown) Blood Pressure (units (unknown) date) 160/85 H 163/86 H unknown) (unknown) (no (unknown) (unknown) Blood Pressure (units (unknown) date) 160/88 H unknown) (unknown) (no (unknown) (unknown) Blood Pressure (units (unknown) date) 161/82 H 153/79 H unknown) (unknown) (no (unknown) (unknown) Blood Pressure (units (unknown) date) 164/90 H 158/88 H unknown) (unknown) (no (unknown) (unknown) Blood Pressure (units (unknown) date) 164/90 H 164/90 H unknown) (unknown) (no (unknown) (unknown) Blood Pressure (units (unknown) date) 170/87 H 185/103 H unknown) (unknown) (no (unknown) (unknown) Blood Pressure (units (unknown) date) 170/87 H unknown) (unknown) (no (unknown) (unknown) Blood Pressure (units (unknown) date) 173/82 H unknown) (unknown) (no (unknown) (unknown) Blood Pressure (units (unknown) date) 175/98 H 190/103 H unknown) (unknown) (no (unknown) (unknown) Blood Pressure (units (unknown) date) 176/97 H 180/103 H unknown) (unknown) (no (unknown) (unknown) Blood Pressure (units (unknown) date) 177/98 H unknown) (unknown) (no (unknown) (unknown) Blood Pressure (units (unknown) date) 179/96 H unknown) (unknown) (no (unknown) (unknown) Blood Pressure (units (unknown) date) 180/98 H unknown) (unknown) (no (unknown) (unknown) Blood Pressure (units (unknown) date) 186/97 H 187/100 H unknown) (unknown) (no (unknown) (unknown) Blood Pressure (units (unknown) date) 193/101 H 190/108 H unknown) (unknown) (no (unknown) (unknown) Blood Pressure (units (unknown) date) unknown) (unknown) (no (unknown) (unknown) CAD. His last cath (units (unknown) date) was a few years ago unknown) and noted a lesion in one artery that was (unknown) (no (unknown) (unknown) CK-MB (CK-2) 0.77 (units (unknown) date) 0.69 unknown) (unknown) (no (unknown) (unknown) CK-MB (CK-2) Rel (units (unknown) date) Index 0.5 L 0.5 L unknown) (unknown) (no (unknown) (unknown) CK-MB (CK-2) Rel (units (unknown) date) Index unknown) (unknown) (no (unknown) (unknown) CK-MB (CK-2) (units (u nknown) date) unknown) (unknown) (no (unknown) (unknown) CODE: Full (units (unk nown) date) unknown) (unknown) (no (unknown) (unknown) CV: regular rate (units (unknown) date) and rhythm, no unknown) murmurs (unknown) (no (unknown) (unknown) Calcium 9.5 (units (un known) date) unknown) (unknown) (no (unknown) (unknown) Calcium (units (unkno wn) date) unknown) (unknown) (no (unknown) (unknown) Carbon Dioxide 29 (units (unknown) date) unknown) (unknown) (no (unknown) (unknown) Carbon Dioxide (units (unknown) date) unknown) (unknown) (no (unknown) (unknown) Cervical (units (unkno wn) date) radiculopathy due to unknown) osteoarthritis of spine (unknown) (no (unknown) (unknown) Chief complaint: (units (unknown) date) neck and chest pain unknown) (unknown) (no (unknown) (unknown) Chloride 102 (units (u nknown) date) unknown) (unknown) (no (unknown) (unknown) Chloride (units (unkno wn) date) unknown) (unknown) (no (unknown) (unknown) Coronary artery (units (unknown) date) disease unknown) (unknown) (no (unknown) (unknown) Creatinine 0.77 (units (unknown) date) unknown) (unknown) (no (unknown) (unknown) Creatinine (units (unk nown) date) unknown) (unknown) (no (unknown) (unknown) Critical Care time: (unit s (unknown) date) unknown) (unknown) (no (unknown) (unknown) D-Dimer 220 (units (un known) date) unknown) (unknown) (no (unknown) (unknown) D-Dimer (units (unkno wn) date) unknown) (unknown) (no (unknown) (unknown) : 1970 (units (unknown) date) Acct:[id number] unknown) (unknown) (no (unknown) (unknown) Date of Service: (units (unknown) date) 09/09/22 unknown) (unknown) (no (unknown) (unknown) Depression (units (unk nown) date) unknown) (unknown) (no (unknown) (unknown) EXT: warm and well (units (unknown) date) perfused with no unknown) edema (unknown) (no (unknown) (unknown) Environment (units (un known) date) unknown) (unknown) (no (unknown) (unknown) Eos # (Auto) 200 (units (unknown) date) unknown) (unknown) (no (unknown) (unknown) Eos # (Auto) (units (u nknown) date) unknown) (unknown) (no (unknown) (unknown) Eos % (Auto) 2.7 (units (unknown) date) unknown) (unknown) (no (unknown) (unknown) Eos % (Auto) (units (u nknown) date) unknown) (unknown) (no (unknown) (unknown) Essential (units (unkn own) date) hypertension unknown) (unknown) (no (unknown) (unknown) Estimated GFR > 60 (units (unknown) date) unknown) (unknown) (no (unknown) (unknown) Estimated GFR (units ( unknown) date) unknown) (unknown) (no (unknown) (unknown) Exam Narrative: (units (unknown) date) unknown) (unknown) (no (unknown) (unknown) Exam (units (unkno wn) date) unknown) (unknown) (no (unknown) (unknown) Family + Social (units (unknown) date) History unknown) (unknown) (no (unknown) (unknown) Family History (units (unknown) date) (Reviewed 09/09/22 @ unknown) 20:49 by Daniel Hector MD) (unknown) (no (unknown) (unknown) Father Hypertension (unit s (unknown) date) unknown) (unknown) (no (unknown) (unknown) Feels Safe in (units ( unknown) date) Current Yes unknown) (unknown) (no (unknown) (unknown) GEN: no acute (units ( unknown) date) distress unknown) (unknown) (no (unknown) (unknown) Generalized anxiety (unit s (unknown) date) disorder with panic unknown) attacks (unknown) (no (unknown) (unknown) Globulin 3.4 (units (u nknown) date) unknown) (unknown) (no (unknown) (unknown) Globulin (units (unkno wn) date) unknown) (unknown) (no (unknown) (unknown) Glucose 190 H (units ( unknown) date) unknown) (unknown) (no (unknown) (unknown) Glucose (units (unkno wn) date) unknown) (unknown) (no (unknown) (unknown) HEENT: moist mucous (unit s (unknown) date) membranes, PERRL unknown) (unknown) (no (unknown) (unknown) Hct 46.0 (units (unkno wn) date) unknown) (unknown) (no (unknown) (unknown) Hct (units (unkno wn) date) unknown) (unknown) (no (unknown) (unknown) Herniated (units (unkn own) date) intervertebral disc unknown) of lumbar spine (unknown) (no (unknown) (unknown) Hgb 15.3 (units (unkno wn) date) unknown) (unknown) (no (unknown) (unknown) Hgb (units (unkno wn) date) unknown) (unknown) (no (unknown) (unknown) History + Physical (units (unknown) date) Report unknown) (unknown) (no (unknown) (unknown) History of Present (units (unknown) date) Illness unknown) (unknown) (no (unknown) (unknown) Home Medications (units (unknown) date) and Allergies unknown) (unknown) (no (unknown) (unknown) Home Medications (units (unknown) date) unknown) (unknown) (no (unknown) (unknown) Hx of cervical (units (unknown) date) discectomy (-2013) unknown) (unknown) (no (unknown) (unknown) Hyperlipidemia (units (unknown) date) unknown) (unknown) (no (unknown) (unknown) Hypertension (units (u nknown) date) unknown) (unknown) (no (unknown) (unknown) I have discussed (units (unknown) date) the care of the unknown) patient with the ED physician and bedside (unknown) (no (unknown) (unknown) I have utilized all (unit s (unknown) date) available resources unknown) to obtain, update, or review the (unknown) (no (unknown) (unknown) I have utilized all (unit s (unknown) date) avilable resources unknown) to reconcile the patient's home (unknown) (no (unknown) (unknown) I spent a total of (units (unknown) date) [] minutes of unknown) critical care time on this patient's care (unknown) (no (unknown) (unknown) INR 1.0 (units (unkno wn) date) unknown) (unknown) (no (unknown) (unknown) INR (units (unkno wn) date) unknown) (unknown) (no (unknown) (unknown) In the ED workup (units (unknown) date) was done, vitals unknown) notable for afebrile, heart rate in 110s, o2 (unknown) (no (unknown) (unknown) [facility] (units (unknown) date) [address] [place] [address] unknown) [place] [address] (unknown) (no (unknown) (unknown) Laboratory Results (units (unknown) date) - last 24 hr unknown) (unknown) (no (unknown) (unknown) Labs (units (unkno wn) date) unknown) (unknown) (no (unknown) (unknown) Labs: (units (unkno wn) date) unknown) (unknown) (no (unknown) (unknown) Lipase 51 (units (unkn own) date) unknown) (unknown) (no (unknown) (unknown) Lipase (units (unkno wn) date) unknown) (unknown) (no (unknown) (unknown) Lymph # (Auto) 1300 (unit s (unknown) date) unknown) (unknown) (no (unknown) (unknown) Lymph # (Auto) (units (unknown) date) unknown) (unknown) (no (unknown) (unknown) Lymph % (Auto) 14.9 (unit s (unknown) date) L unknown) (unknown) (no (unknown) (unknown) Lymph % (Auto) (units (unknown) date) unknown) (unknown) (no (unknown) (unknown) MCH 30.3 (units (unkno wn) date) unknown) (unknown) (no (unknown) (unknown) MCH (units (unkno wn) date) unknown) (unknown) (no (unknown) (unknown) MCHC 33.2 (units (unkn own) date) unknown) (unknown) (no (unknown) (unknown) MCHC (units (unkno wn) date) unknown) (unknown) (no (unknown) (unknown) MCV 91.2 (units (unkno wn) date) unknown) (unknown) (no (unknown) (unknown) MCV (units (unkno wn) date) unknown) (unknown) (no (unknown) (unknown) MIPS - Meds (units (un known) date) unknown) (unknown) (no (unknown) (unknown) Magnesium 2.0 (units ( unknown) date) unknown) (unknown) (no (unknown) (unknown) Magnesium (units (unkn own) date) unknown) (unknown) (no (unknown) (unknown) Medical History (units (unknown) date) (Reviewed 09/09/22 @ unknown) 20:49 by Daniel Hector MD) (unknown) (no (unknown) (unknown) Medication (units (unk nown) date) Instructions unknown) Recorded Confirmed Type (unknown) (no (unknown) (unknown) Meds (units (unkno wn) date) unknown) (unknown) (no (unknown) (unknown) Mcintosh # (Auto) 500 (units (unknown) date) unknown) (unknown) (no (unknown) (unknown) Mcintosh # (Auto) (units ( unknown) date) unknown) (unknown) (no (unknown) (unknown) Mcintosh % (Auto) 5.5 (units (unknown) date) unknown) (unknown) (no (unknown) (unknown) Mcintosh % (Auto) (units ( unknown) date) unknown) (unknown) (no (unknown) (unknown) Mother Diabetes (units (unknown) date) mellitus unknown) (unknown) (no (unknown) (unknown) Mr. Alonso is a 52M (unit s (unknown) date) with CAD, cervical unknown) radiculopathy, opiate addiction, HTN who (unknown) (no (unknown) (unknown) NECK: trachea (units ( unknown) date) midline, no JVD unknown) (unknown) (no (unknown) (unknown) NEURO: awake, (units ( unknown) date) alert, oriented, no unknown) focal deficits (unknown) (no (unknown) (unknown) Narrative (units (unkn own) date) unknown) (unknown) (no (unknown) (unknown) Narrative: (units (unk nown) date) unknown) (unknown) (no (unknown) (unknown) Neut # (Auto) 6400 (units (unknown) date) unknown) (unknown) (no (unknown) (unknown) Neut # (Auto) (units ( unknown) date) unknown) (unknown) (no (unknown) (unknown) Neut % (Auto) 76.0 (units (unknown) date) H unknown) (unknown) (no (unknown) (unknown) Neut % (Auto) (units ( unknown) date) unknown) (unknown) (no (unknown) (unknown) Objective (units (unkn own) date) unknown) (unknown) (no (unknown) (unknown) Opiate addiction (units (unknown) date) unknown) (unknown) (no (unknown) (unknown) Oxygen Delivery (units (unknown) date) Method Room Air unknown) (unknown) (no (unknown) (unknown) Oxygen Delivery (units (unknown) date) Method unknown) (unknown) (no (unknown) (unknown) PT 11.1 (units (unkno wn) date) unknown) (unknown) (no (unknown) (unknown) PT (units (unkno wn) date) unknown) (unknown) (no (unknown) (unknown) PULM: clear (units (un known) date) bilaterally unknown) 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 unknown) (unknown) (no (unknown) (unknown) Patient History (units (unknown) date) unknown) (unknown) (no (unknown) (unknown) Patient: (units (unknown) date) II,Theadore L MR# unknown) (unknown) (no (unknown) (unknown) Peripheral (units (unk nown) date) neuropathy unknown) (unknown) (no (unknown) (unknown) Plt Count 230 (units ( unknown) date) unknown) (unknown) (no (unknown) (unknown) Plt Count (units (unkn own) date) unknown) (unknown) (no (unknown) (unknown) Potassium 4.2 (units ( unknown) date) unknown) (unknown) (no (unknown) (unknown) Potassium (units (unkn own) date) unknown) (unknown) (no (unknown) (unknown) Provider: (units (unkn own) date) Daniel Hector MD unknown) (unknown) (no (unknown) (unknown) Proxy: Ada (units (u nknown) date) Rappuhn, life unknown) partner (unknown) (no (unknown) (unknown) Pulse Oximetry 91 (units (unknown) date) 92 unknown) (unknown) (no (unknown) (unknown) Pulse Oximetry 91 (units (unknown) date) unknown) (unknown) (no (unknown) (unknown) Pulse Oximetry 92 (units (unknown) date) 92 unknown) (unknown) (no (unknown) (unknown) Pulse Oximetry 92 (units (unknown) date) unknown) (unknown) (no (unknown) (unknown) Pulse Oximetry 93 (units (unknown) date) 93 unknown) (unknown) (no (unknown) (unknown) Pulse Oximetry 93 (units (unknown) date) unknown) (unknown) (no (unknown) (unknown) Pulse Oximetry 94 (units (unknown) date) 94 unknown) (unknown) (no (unknown) (unknown) Pulse Oximetry 94 (units (unknown) date) 95 unknown) (unknown) (no (unknown) (unknown) Pulse Oximetry 94 (units (unknown) date) unknown) (unknown) (no (unknown) (unknown) Pulse Oximetry 95 (units (unknown) date) 94 unknown) (unknown) (no (unknown) (unknown) Pulse Oximetry 95 (units (unknown) date) 95 unknown) (unknown) (no (unknown) (unknown) Pulse Oximetry 95 (units (unknown) date) 96 unknown) (unknown) (no (unknown) (unknown) Pulse Oximetry 95 (units (unknown) date) unknown) (unknown) (no (unknown) (unknown) Pulse Oximetry 96 (units (unknown) date) unknown) (unknown) (no (unknown) (unknown) Pulse Oximetry 97 (units (unknown) date) unknown) (unknown) (no (unknown) (unknown) Pulse Oximetry 98 (units (unknown) date) 95 96 unknown) (unknown) (no (unknown) (unknown) Pulse Rate 100 H (units (unknown) date) 120 H unknown) (unknown) (no (unknown) (unknown) Pulse Rate 101 H (units (unknown) date) unknown) (unknown) (no (unknown) (unknown) Pulse Rate 102 H (units (unknown) date) 103 H unknown) (unknown) (no (unknown) (unknown) Pulse Rate 102 H 98 (unit s (unknown) date) H unknown) (unknown) (no (unknown) (unknown) Pulse Rate 105 H (units (unknown) date) 100 H unknown) (unknown) (no (unknown) (unknown) Pulse Rate 105 H (units (unknown) date) unknown) (unknown) (no (unknown) (unknown) Pulse Rate 106 H (units (unknown) date) unknown) (unknown) (no (unknown) (unknown) Pulse Rate 119 H (units (unknown) date) 112 H 110 H unknown) (unknown) (no (unknown) (unknown) Pulse Rate 79 (units ( unknown) date) unknown) (unknown) (no (unknown) (unknown) Pulse Rate 86 82 (units (unknown) date) unknown) (unknown) (no (unknown) (unknown) Pulse Rate 89 88 (units (unknown) date) unknown) (unknown) (no (unknown) (unknown) Pulse Rate 90 90 (units (unknown) date) unknown) (unknown) (no (unknown) (unknown) Pulse Rate 91 H (units (unknown) date) unknown) (unknown) (no (unknown) (unknown) Pulse Rate 92 H (units (unknown) date) unknown) (unknown) (no (unknown) (unknown) Pulse Rate 93 H (units (unknown) date) unknown) (unknown) (no (unknown) (unknown) Pulse Rate 96 H (units (unknown) date) unknown) (unknown) (no (unknown) (unknown) Pulse Rate 97 H 100 (unit s (unknown) date) H 97 H unknown) (unknown) (no (unknown) (unknown) Pulse Rate 97 H 102 (unit s (unknown) date) H unknown) (unknown) (no (unknown) (unknown) Pulse Rate 97 H 96 (units (unknown) date) H unknown) (unknown) (no (unknown) (unknown) Pulse Rate 97 H 99 (units (unknown) date) H unknown) (unknown) (no (unknown) (unknown) Pulse Rate 97 H (units (unknown) date) unknown) (unknown) (no (unknown) (unknown) Pulse Rate 98 H 97 (units (unknown) date) H unknown) (unknown) (no (unknown) (unknown) Pulse Rate 99 H (units (unknown) date) unknown) (unknown) (no (unknown) (unknown) Quality (units (unkno wn) date) unknown) (unknown) (no (unknown) (unknown) RBC 5.04 (units (unkno wn) date) unknown) (unknown) (no (unknown) (unknown) RBC (units (unkno wn) date) unknown) (unknown) (no (unknown) (unknown) RDW 13.0 (units (unkno wn) date) unknown) (unknown) (no (unknown) (unknown) RDW (units (unkno wn) date) unknown) (unknown) (no (unknown) (unknown) REACTION' (units (unkn own) date) unknown) (unknown) (no (unknown) (unknown) RLS (restless legs (units (unknown) date) syndrome) unknown) (unknown) (no (unknown) (unknown) Respiratory Rate 11 (unit s (unknown) date) L unknown) (unknown) (no (unknown) (unknown) Respiratory Rate 12 (unit s (unknown) date) unknown) (unknown) (no (unknown) (unknown) Respiratory Rate 13 (unit s (unknown) date) unknown) (unknown) (no (unknown) (unknown) Respiratory Rate 14 (unit s (unknown) date) unknown) (unknown) (no (unknown) (unknown) Respiratory Rate 16 (unit s (unknown) date) unknown) (unknown) (no (unknown) (unknown) Respiratory Rate 18 (unit s (unknown) date) 19 unknown) (unknown) (no (unknown) (unknown) Respiratory Rate 20 (unit s (unknown) date) unknown) (unknown) (no (unknown) (unknown) Respiratory Rate 24 (unit s (unknown) date) unknown) (unknown) (no (unknown) (unknown) Respiratory Rate (units (unknown) date) unknown) (unknown) (no (unknown) (unknown) Review of Systems (units (unknown) date) unknown) (unknown) (no (unknown) (unknown) SARS-CoV-2 (PCR) (units (unknown) date) Negative unknown) (unknown) (no (unknown) (unknown) SARS-CoV-2 (PCR) (units (unknown) date) unknown) (unknown) (no (unknown) (unknown) Safety + (units (unkno wn) date) Behavioral: unknown) (unknown) (no (unknown) (unknown) Signed By: (units (unk nown) date) unknown) (unknown) (no (unknown) (unknown) Smoking Status (units (unknown) date) Current every day unknown) smoker (unknown) (no (unknown) (unknown) Social History: (units (unknown) date) unknown) (unknown) (no (unknown) (unknown) Sodium 138 (units (unk nown) date) unknown) (unknown) (no (unknown) (unknown) Sodium (units (unkno wn) date) unknown) (unknown) (no (unknown) (unknown) Spinal stenosis of (units (unknown) date) lumbar region with unknown) neurogenic claudication (unknown) (no (unknown) (unknown) Spondylolisthesis (units (unknown) date) of lumbar region unknown) (unknown) (no (unknown) (unknown) Stenosis of artery (units (unknown) date) unknown) (unknown) (no (unknown) (unknown) Substance Use Type (units (unknown) date) does not use unknown) (unknown) (no (unknown) (unknown) Surgical History (units (unknown) date) (Reviewed 09/09/22 @ unknown) 20:49 by Daniel Hector MD) (unknown) (no (unknown) (unknown) Temperature 98.1 F (units (unknown) date) unknown) (unknown) (no (unknown) (unknown) Temperature (units (un known) date) unknown) (unknown) (no (unknown) (unknown) Threatened By a (units (unknown) date) Person unknown) (unknown) (no (unknown) (unknown) Time Spent With (units (unknown) date) Patient unknown) (unknown) (no (unknown) (unknown) Tobacco + Substance (unit s (unknown) date) use: unknown) (unknown) (no (unknown) (unknown) Tobacco type (units (u nknown) date) cigarettes unknown) (unknown) (no (unknown) (unknown) Total Bilirubin 0.5 (unit s (unknown) date) unknown) (unknown) (no (unknown) (unknown) Total Bilirubin (units (unknown) date) unknown) (unknown) (no (unknown) (unknown) Total Creatine (units (unknown) date) Kinase 163 149 unknown) (unknown) (no (unknown) (unknown) Total Creatine (units (unknown) date) Kinase unknown) (unknown) (no (unknown) (unknown) Total Protein 8.1 (units (unknown) date) unknown) (unknown) (no (unknown) (unknown) Total Protein (units ( unknown) date) unknown) (unknown) (no (unknown) (unknown) Troponin I < 0.012 (units (unknown) date) < 0.012 unknown) (unknown) (no (unknown) (unknown) Troponin I (units (unk nown) date) unknown) (unknown) (no (unknown) (unknown) Vital Signs (units (un known) date) unknown) (unknown) (no (unknown) (unknown) Vitamin D (units (unkn own) date) deficiency unknown) (unknown) (no (unknown) (unknown) WBC 8.4 (units (unkno wn) date) unknown) (unknown) (no (unknown) (unknown) WBC (units (unkno wn) date) unknown) (unknown) (no (unknown) (unknown) [Embedded Image Not (unit s (unknown) date) Available] unknown) (unknown) (no (unknown) (unknown) alcohol intake (units (unknown) date) frequency a few unknown) times a month (unknown) (no (unknown) (unknown) alcohol intake (units (unknown) date) never unknown) (unknown) (no (unknown) (unknown) alprazolam 0.5 mg (units (unknown) date) tablet 0.5 mg PO unknown) BEDTIME PRN sleep #14 05/20/22 05/20/22 Rx (unknown) (no (unknown) (unknown) and xray. (units (unkn own) date) unknown) (unknown) (no (unknown) (unknown) arm. Today he had (units (unknown) date) let sided chest pain unknown) that is somewhat different than his (unknown) (no (unknown) (unknown) aspirin 81 mg (units ( unknown) date) tablet,delayed 81 mg unknown) PO DAILY 10/07/22 11/15/22 History (unknown) (no (unknown) (unknown) atorvastatin 40 mg (units (unknown) date) tablet 40 mg PO unknown) BEDTIME #90 tabs 04/11/22 05/20/22 Rx (unknown) (no (unknown) (unknown) bupropion HCl 150 (units (unknown) date) mg 24 hr tablet, 150 unknown) mg PO BID #60 tabs 05/20/22 05/20/22 Rx (unknown) (no (unknown) (unknown) cervical (units (unkno wn) date) radiculopathy. He unknown) has developed pain that radiates down the entire left (unknown) (no (unknown) (unknown) droperidol (units (unk nown) date) [DROPERIDOL] Allergy unknown) Mild 'COGENIC Verified 07/12/22 14:01 (unknown) (no (unknown) (unknown) extended release (units (unknown) date) unknown) (unknown) (no (unknown) (unknown) few months ago for (units (unknown) date) similar pain and had unknown) an inconclusive exercise stress test and (unknown) (no (unknown) (unknown) gabapentin 600 mg (units (unknown) date) tablet 600 mg PO TID unknown) #270 tabs 05/20/22 05/20/22 Rx (unknown) (no (unknown) (unknown) herbals, (units (unkno wn) date) cannabis/cannabidiol unknown) products, and vitamin/mineral/diet sue (unknown) (no (unknown) (unknown) household members (units (unknown) date) family unknown) (unknown) (no (unknown) (unknown) is pending a (units (u nknown) date) nuclear stress test. unknown) (unknown) (no (unknown) (unknown) lidocaine 5 % (units ( unknown) date) topical patch 2 unknown) patch topical DAILY #30 ea 07/12/22 Rx (unknown) (no (unknown) (unknown) medications (units (un known) date) unknown) (unknown) (no (unknown) (unknown) metoprolol tartrate (unit s (unknown) date) 25 mg tablet 25 mg unknown) PO BID #180 tabs 04/09/22 05/20/22 Rx (unknown) (no (unknown) (unknown) mg tablet (units (unkn own) date) (Percocet) unknown) (unknown) (no (unknown) (unknown) normal neck and arm (unit s (unknown) date) pain. No shortness unknown) of breath. Of note he does have known (unknown) (no (unknown) (unknown) not large enough to (unit s (unknown) date) be intervened upon. unknown) He is taking aspirin. He was admitted a (unknown) (no (unknown) (unknown) nurse. I have (units ( unknown) date) discussed the plan unknown) with the patient. I have reviewed labs and EKG (unknown) (no (unknown) (unknown) oxycodone-acetamino (unit s (unknown) date) phen 5 mg-325 1 tab unknown) PO Q8H PRN pain #10 tabs 07/12/22 Rx (unknown) (no (unknown) (unknown) patient?s current (units (unknown) date) medications. [If unknown) Yes, STOP here]: Yes (unknown) (no (unknown) (unknown) presented to the (units (unknown) date) hospital chest unknown) painn. He has a long history of neck pain due to (unknown) (no (unknown) (unknown) release (units (unkno wn) date) unknown) (unknown) (no (unknown) (unknown) sats 98% on room (units (unknown) date) air, blood pressure unknown) 170s/90s. Labs notable for WBC 8.4, hgb (unknown) (no (unknown) (unknown) sertraline 50 mg (units (unknown) date) tablet 50 mg PO unknown) DAILY #90 tabs 04/09/22 05/20/22 Rx (unknown) (no (unknown) (unknown) sinus tachcyardia. (units (unknown) date) He was admitted for unknown) further treatment. (unknown) (no (unknown) (unknown) tabs (units (unkno wn) date) unknown) (unknown) (no (unknown) (unknown) today; this time is (unit s (unknown) date) exclusive of unknown) procedural time. Result panel [id number] (unknown) (no (unknown) (unknown) (no value) (units (unk nown) date) unknown) (unknown) (no (unknown) (unknown) #: [id number] (units ( unknown) date) unknown) (unknown) (no (unknown) (unknown) 09/09/22 (units (unkno wn) date) unknown) (unknown) (no (unknown) (unknown) [address] [place] [address] (units (unknown) date) unknown) (unknown) (no (unknown) (unknown) 98 mL. (units (unkno wn) date) unknown) (unknown) (no (unknown) (unknown) A pharmacologic (units (unknown) date) stress test was unknown) performed under the supervision of an attending (unknown) (no (unknown) (unknown) Accession Number: (units (unknown) date) [id number] unknown) (unknown) (no (unknown) (unknown) Age/Sex: 52 / M Date (uni ts (unknown) date) of Service: unknown) (unknown) (no (unknown) (unknown) Aminophylline: none (unit s (unknown) date) unknown) (unknown) (no (unknown) (unknown) [place] [address] (unit s (unknown) date) unknown) (unknown) (no (unknown) (unknown) Approved by: Jim (unit s (unknown) date) Carl KIMBROUGH on unknown) 09/10/2022 at 15:36 (unknown) (no (unknown) (unknown) CARDIAC STRESS: (units (unknown) date) unknown) (unknown) (no (unknown) (unknown) COMPARISON: None. (units (unknown) date) unknown) (unknown) (no (unknown) (unknown) : 1970 (units (unknown) date) Acct:[id number] unknown) (unknown) (no (unknown) (unknown) Dictated by: Jim (unit s (unknown) date) Carl KIMBROUGH on unknown) 09/10/2022 at 15:35 (unknown) (no (unknown) (unknown) EKG: No diagnostic (units (unknown) date) changes of ischemia; unknown) no ectopy. (unknown) (no (unknown) (unknown) FINDINGS: (units (unkn own) date) unknown) (unknown) (no (unknown) (unknown) Hemodynamic data: (units (unknown) date) There is normal blood unknown) pressure and heart rate response to (unknown) (no (unknown) (unknown) IMPRESSION: Low (units (unknown) date) risk, normal unknown) pharmaceutical stress test. Normal LV size, wall (unknown) (no (unknown) (unknown) INDICATIONS: chest (units (unknown) date) pain unknown) (unknown) (no (unknown) (unknown) [facility] (units (unknown) date) unknown) (unknown) (no (unknown) (unknown) Left ventricle (units (unknown) date) function: Gated unknown) images demonstrate normal left ventricular wall (unknown) (no (unknown) (unknown) Left ventricle (units (unknown) date) stress ejection unknown) fraction is 73%; normal range is above 45%. (unknown) (no (unknown) (unknown) Loc: ICU 231-1 (units (unknown) date) unknown) (unknown) (no (unknown) (unknown) Myocardial (units (unk nown) date) perfusion: There is unknown) normal distribution of activity in the right and (unknown) (no (unknown) (unknown) Nuclear Medicine (units (unknown) date) Report unknown) (unknown) (no (unknown) (unknown) Ordering Provider: (units (unknown) date) Daniel Hector MD unknown) (unknown) (no (unknown) (unknown) PROCEDURE: NM SHY (units (unknown) date) PERF SPECT R+S PHARM unknown) (unknown) (no (unknown) (unknown) Patient: (units (unknown) date) II,Anthony L MR unknown) (unknown) (no (unknown) (unknown) Procedure: NM shy (units (unknown) date) perf SPECT R+S pharm unknown) (unknown) (no (unknown) (unknown) RADIOPHARMACEUTICAL: (uni ts (unknown) date) 11.1 mCi Tc-99m unknown) tetrafosmin IV at rest and 26.9 mCi Tc-99m (unknown) (no (unknown) (unknown) Raw data: There is (units (unknown) date) good myocardial unknown) uptake of radiotracer. No significant (unknown) (no (unknown) (unknown) Rest and (units (unkno wn) date) pharmacological unknown) stress myocardial perfusion SPECT with gated imaging (unknown) (no (unknown) (unknown) SPECT images were (units (unknown) date) obtained. SPECT unknown) myocardial perfusion images were displayed in (unknown) (no (unknown) (unknown) Signed (units (unkno wn) date) unknown) (unknown) (no (unknown) (unknown) Symptoms: The (units ( unknown) date) patient denied unknown) anginal chest pain. (unknown) (no (unknown) (unknown) TECHNIQUE: (units (unk nown) ) Radiopharmaceutical unknown) was injected at peak stress test, and also at (unknown) (no (unknown) (unknown) and systolic (units (u nknown) date) function (EF post unknown) stress 73%). (unknown) (no (unknown) (unknown) and (units (unkno wn) date) unknown) (unknown) (no (unknown) (unknown) artifacts. (units (unk n) date) Odcq-na-isfum ratio unknown) is 0.27 (normal is less than 0.38 for (unknown) (no (unknown) (unknown) axis, horizontal (units (unknown) date) long axis, and unknown) vertical long axis views. Gated images were (unknown) (no (unknown) (unknown) dilation; TID (units ( unknown) date) unknown) (unknown) (no (unknown) (unknown) ejection fraction (units (unknown) date) unknown) (unknown) (no (unknown) (unknown) is 1.19 (normal less (uni ts (unknown) date) than 1.3). Left unknown) ventricle resting end diastolic volume is (unknown) (no (unknown) (unknown) left (units (unkno wn) date) unknown) (unknown) (no (unknown) (unknown) motion (units (unkno wn) date) unknown) (unknown) (no (unknown) (unknown) motion, (units (unkno wn) date) unknown) (unknown) (no (unknown) (unknown) performed. (units (unk nown) date) unknown) (unknown) (no (unknown) (unknown) pharmacologic (units ( unknown) date) stress. unknown) (unknown) (no (unknown) (unknown) rest. (units (unkno wn) date) unknown) (unknown) (no (unknown) (unknown) reviewed (units (unkno wn) date) unknown) (unknown) (no (unknown) (unknown) short (units (unkno wn) date) unknown) (unknown) (no (unknown) (unknown) staff, (units (unkno wn) date) unknown) (unknown) (no (unknown) (unknown) tetrafosmin IV at (units (unknown) date) peak effect of unknown) pharmacological stress. [id number] was (unknown) (no (unknown) (unknown) tetrafosmin (units (un known) date) unknown) (unknown) (no (unknown) (unknown) thickening. No (units (unknown) date) segmental wall motion unknown) abnormalities. No transient ischemic (unknown) (no (unknown) (unknown) tracer). (units (unkno wn) date) unknown) (unknown) (no (unknown) (unknown) using [employer] (units (unknown) date) software. unknown) (unknown) (no (unknown) (unknown) using an infusion of (uni ts (unknown) date) lexiscan 0.4mg IV X1. unknown) (unknown) (no (unknown) (unknown) ventricular (units (un known) date) myocardium. No fixed unknown) or reversible perfusion defects. Result panel 628 (unknown) (no (unknown) (unknown) (no value) (units (unk nown) date) unknown) (unknown) (no (unknown) (unknown) 'Current (units (unkno wn) date) medications' to unknown) include all prescriptions, [id number] products, (unknown) (no (unknown) (unknown) (Lidoderm) (units (unk nown) date) unknown) (unknown) (no (unknown) (unknown) (nutritional) (units ( unknown) date) supplements. unknown) (unknown) (no (unknown) (unknown) (past 8 hours): (units (unknown) date) unknown) (unknown) (no (unknown) (unknown) -EKG with question (units (unknown) date) of ST depressions in unknown) inferolateral leads (unknown) (no (unknown) (unknown) -HEART score of 5 (units (unknown) date) unknown) (unknown) (no (unknown) (unknown) -coninue home (units ( unknown) date) medications unknown) (unknown) (no (unknown) (unknown) -follow up as (units ( unknown) date) outpatient unknown) (unknown) (no (unknown) (unknown) -ordered aspirin (units (unknown) date) unknown) (unknown) (no (unknown) (unknown) -patient has known (units (unknown) date) CAD unknown) (unknown) (no (unknown) (unknown) -plan for nuclear (units (unknown) date) stress test unknown) (unknown) (no (unknown) (unknown) -recent exercise (units (unknown) date) stress test unknown) inconclusive for inducible ischemia (unknown) (no (unknown) (unknown) -trend troponins (units (unknown) date) unknown) (unknown) (no (unknown) (unknown) -troponin negative (units (unknown) date) x2 unknown) (unknown) (no (unknown) (unknown) 09/09/22 09/09/22 (units (unknown) date) 09/09/22 unknown) (unknown) (no (unknown) (unknown) 09/09/22 16:10 (units (unknown) date) unknown) (unknown) (no (unknown) (unknown) 09/09/22 2202 (units ( unknown) date) unknown) (unknown) (no (unknown) (unknown) 09/09/22 (units (unkno wn) date) unknown) (unknown) (no (unknown) (unknown) 1. Chest pain (units ( unknown) date) unknown) (unknown) (no (unknown) (unknown) 14 systems reviewed (unit s (unknown) date) and negative aside unknown) from what is noted in HPI (unknown) (no (unknown) (unknown) 14:10 16:10 16:10 (units (unknown) date) unknown) (unknown) (no (unknown) (unknown) 15.3, plts 230. (units (unknown) date) Creatinine 0.77. unknown) D-dimer 220. Troponin negative x2. EKG with (unknown) (no (unknown) (unknown) 15:54 09/09/22 (units (unknown) date) unknown) (unknown) (no (unknown) (unknown) 16:10 16:30 19:05 (units (unknown) date) unknown) (unknown) (no (unknown) (unknown) 16:15 09/09/22 (units (unknown) date) unknown) (unknown) (no (unknown) (unknown) 16:19 09/09/22 (units (unknown) date) unknown) (unknown) (no (unknown) (unknown) 16:19 (units (unkno wn) date) unknown) (unknown) (no (unknown) (unknown) 16:30 09/09/22 (units (unknown) date) unknown) (unknown) (no (unknown) (unknown) 16:30 (units (unkno wn) date) unknown) (unknown) (no (unknown) (unknown) 16:35 09/09/22 (units (unknown) date) unknown) (unknown) (no (unknown) (unknown) 16:40 09/09/22 (units (unknown) date) unknown) (unknown) (no (unknown) (unknown) 16:40 (units (unkno wn) date) unknown) (unknown) (no (unknown) (unknown) 16:45 09/09/22 (units (unknown) date) unknown) (unknown) (no (unknown) (unknown) 16:50 09/09/22 (units (unknown) date) unknown) (unknown) (no (unknown) (unknown) 16:50 (units (unkno wn) date) unknown) (unknown) (no (unknown) (unknown) 16:55 09/09/22 (units (unknown) date) unknown) (unknown) (no (unknown) (unknown) 16:55 (units (unkno wn) date) unknown) (unknown) (no (unknown) (unknown) 17:00 09/09/22 (units (unknown) date) unknown) (unknown) (no (unknown) (unknown) 17:05 09/09/22 (units (unknown) date) unknown) (unknown) (no (unknown) (unknown) 17:05 (units (unkno wn) date) unknown) (unknown) (no (unknown) (unknown) 17:10 09/09/22 (units (unknown) date) unknown) (unknown) (no (unknown) (unknown) 17:10 (units (unkno wn) date) unknown) (unknown) (no (unknown) (unknown) 17:14 09/09/22 (units (unknown) date) unknown) (unknown) (no (unknown) (unknown) 17:15 09/09/22 (units (unknown) date) unknown) (unknown) (no (unknown) (unknown) 17:15 (units (unkno wn) date) unknown) (unknown) (no (unknown) (unknown) 17:20 09/09/22 (units (unknown) date) unknown) (unknown) (no (unknown) (unknown) 17:20 (units (unkno wn) date) unknown) (unknown) (no (unknown) (unknown) 17:25 09/09/22 (units (unknown) date) unknown) (unknown) (no (unknown) (unknown) 17:30 09/09/22 (units (unknown) date) unknown) (unknown) (no (unknown) (unknown) 17:30 (units (unkno wn) date) unknown) (unknown) (no (unknown) (unknown) 17:35 09/09/22 (units (unknown) date) unknown) (unknown) (no (unknown) (unknown) 17:35 (units (unkno wn) date) unknown) (unknown) (no (unknown) (unknown) 17:40 09/09/22 (units (unknown) date) unknown) (unknown) (no (unknown) (unknown) 17:42 09/09/22 (units (unknown) date) unknown) (unknown) (no (unknown) (unknown) 17:45 09/09/22 (units (unknown) date) unknown) (unknown) (no (unknown) (unknown) 17:45 (units (unkno wn) date) unknown) (unknown) (no (unknown) (unknown) 17:50 09/09/22 (units (unknown) date) unknown) (unknown) (no (unknown) (unknown) 17:50 (units (unkno wn) date) unknown) (unknown) (no (unknown) (unknown) 17:55 09/09/22 (units (unknown) date) unknown) (unknown) (no (unknown) (unknown) 18:00 09/09/22 (units (unknown) date) unknown) (unknown) (no (unknown) (unknown) 18:00 (units (unkno wn) date) unknown) (unknown) (no (unknown) (unknown) 18:05 09/09/22 (units (unknown) date) unknown) (unknown) (no (unknown) (unknown) 18:05 (units (unkno wn) date) unknown) (unknown) (no (unknown) (unknown) 18:10 09/09/22 (units (unknown) date) unknown) (unknown) (no (unknown) (unknown) 18:10 (units (unkno wn) date) unknown) (unknown) (no (unknown) (unknown) 18:11 09/09/22 (units (unknown) date) unknown) (unknown) (no (unknown) (unknown) 18:15 09/09/22 (units (unknown) date) unknown) (unknown) (no (unknown) (unknown) 18:20 09/09/22 (units (unknown) date) unknown) (unknown) (no (unknown) (unknown) 18:20 (units (unkno wn) date) unknown) (unknown) (no (unknown) (unknown) 18:25 09/09/22 (units (unknown) date) unknown) (unknown) (no (unknown) (unknown) 18:25 (units (unkno wn) date) unknown) (unknown) (no (unknown) (unknown) 18:30 09/09/22 (units (unknown) date) unknown) (unknown) (no (unknown) (unknown) 18:35 09/09/22 (units (unknown) date) unknown) (unknown) (no (unknown) (unknown) 18:35 (units (unkno wn) date) unknown) (unknown) (no (unknown) (unknown) 18:40 09/09/22 (units (unknown) date) unknown) (unknown) (no (unknown) (unknown) 18:40 (units (unkno wn) date) unknown) (unknown) (no (unknown) (unknown) 18:45 09/09/22 (units (unknown) date) unknown) (unknown) (no (unknown) (unknown) 18:50 09/09/22 (units (unknown) date) unknown) (unknown) (no (unknown) (unknown) 18:50 (units (unkno wn) date) unknown) (unknown) (no (unknown) (unknown) 18:55 09/09/22 (units (unknown) date) unknown) (unknown) (no (unknown) (unknown) 18:55 (units (unkno wn) date) unknown) (unknown) (no (unknown) (unknown) 19:00 09/09/22 (units (unknown) date) unknown) (unknown) (no (unknown) (unknown) 19:30 (units (unkno wn) date) unknown) (unknown) (no (unknown) (unknown) 2. Cervical (units (un known) date) radiculopathy unknown) (unknown) (no (unknown) (unknown) 20:00 (units (unkno wn) date) unknown) (unknown) (no (unknown) (unknown) 3. Hypertension (units (unknown) date) unknown) (unknown) (no (unknown) (unknown) : [id number] (units (u nknown) date) unknown) (unknown) (no (unknown) (unknown) ABD: soft, (units (unk nown) date) nontender, unknown) nondistended, no organomegaly (unknown) (no (unknown) (unknown) ADD (attention (units (unknown) date) deficit disorder) unknown) (unknown) (no (unknown) (unknown) ALT 34 (units (unkno wn) date) unknown) (unknown) (no (unknown) (unknown) ALT (units (unkno wn) date) unknown) (unknown) (no (unknown) (unknown) APTT 32 (units (unkno wn) date) unknown) (unknown) (no (unknown) (unknown) APTT (units (unkno wn) date) unknown) (unknown) (no (unknown) (unknown) AST 37 (units (unkno wn) date) unknown) (unknown) (no (unknown) (unknown) AST (units (unkno wn) date) unknown) (unknown) (no (unknown) (unknown) Age/Sex: 52 / M (units (unknown) date) unknown) (unknown) (no (unknown) (unknown) Albumin 4.7 (units (un known) date) unknown) (unknown) (no (unknown) (unknown) Albumin (units (unkno wn) date) unknown) (unknown) (no (unknown) (unknown) Albumin/Globulin (units (unknown) date) Ratio 1.4 unknown) (unknown) (no (unknown) (unknown) Albumin/Globulin (units (unknown) date) Ratio unknown) (unknown) (no (unknown) (unknown) Alkaline (units (unkno wn) date) Phosphatase 60 unknown) (unknown) (no (unknown) (unknown) Alkaline (units (unkno wn) date) Phosphatase unknown) (unknown) (no (unknown) (unknown) Allergies (units (unkn own) date) unknown) (unknown) (no (unknown) (unknown) Allergy/AdvReac (units (unknown) date) Type Severity unknown) Reaction Status Date / Time (unknown) (no (unknown) (unknown) Assessment + Plan (units (unknown) date) narrative: unknown) (unknown) (no (unknown) (unknown) Assessment + Plan (units (unknown) date) unknown) (unknown) (no (unknown) (unknown) Asthma (units (unkno wn) date) unknown) (unknown) (no (unknown) (unknown) BUN 12 (units (unkno wn) date) unknown) (unknown) (no (unknown) (unknown) BUN (units (unkno wn) date) unknown) (unknown) (no (unknown) (unknown) BUN/Creatinine (units (unknown) date) Ratio 15.6 unknown) (unknown) (no (unknown) (unknown) BUN/Creatinine (units (unknown) date) Ratio unknown) (unknown) (no (unknown) (unknown) Baso # (Auto) 100 (units (unknown) date) unknown) (unknown) (no (unknown) (unknown) Baso # (Auto) (units ( unknown) date) unknown) (unknown) (no (unknown) (unknown) Baso % (Auto) 0.9 (units (unknown) date) unknown) (unknown) (no (unknown) (unknown) Baso % (Auto) (units ( unknown) date) unknown) (unknown) (no (unknown) (unknown) Been Physically (units (unknown) date) Hurt or No unknown) (unknown) (no (unknown) (unknown) Blood Pressure (units (unknown) date) 145/69 H unknown) (unknown) (no (unknown) (unknown) Blood Pressure (units (unknown) date) 149/82 H unknown) (unknown) (no (unknown) (unknown) Blood Pressure (units (unknown) date) 150/86 H unknown) (unknown) (no (unknown) (unknown) Blood Pressure (units (unknown) date) 151/59 H 169/95 H unknown) (unknown) (no (unknown) (unknown) Blood Pressure (units (unknown) date) 154/76 H 145/69 H unknown) (unknown) (no (unknown) (unknown) Blood Pressure (units (unknown) date) 155/87 H unknown) (unknown) (no (unknown) (unknown) Blood Pressure (units (unknown) date) 157/88 H 163/86 H unknown) (unknown) (no (unknown) (unknown) Blood Pressure (units (unknown) date) 157/88 H 181/98 H unknown) (unknown) (no (unknown) (unknown) Blood Pressure (units (unknown) date) 158/81 H unknown) (unknown) (no (unknown) (unknown) Blood Pressure (units (unknown) date) 160/85 H 163/86 H unknown) (unknown) (no (unknown) (unknown) Blood Pressure (units (unknown) date) 160/88 H unknown) (unknown) (no (unknown) (unknown) Blood Pressure (units (unknown) date) 161/82 H 153/79 H unknown) (unknown) (no (unknown) (unknown) Blood Pressure (units (unknown) date) 164/90 H 158/88 H unknown) (unknown) (no (unknown) (unknown) Blood Pressure (units (unknown) date) 164/90 H 164/90 H unknown) (unknown) (no (unknown) (unknown) Blood Pressure (units (unknown) date) 170/87 H 185/103 H unknown) (unknown) (no (unknown) (unknown) Blood Pressure (units (unknown) date) 170/87 H unknown) (unknown) (no (unknown) (unknown) Blood Pressure (units (unknown) date) 173/82 H unknown) (unknown) (no (unknown) (unknown) Blood Pressure (units (unknown) date) 175/98 H 190/103 H unknown) (unknown) (no (unknown) (unknown) Blood Pressure (units (unknown) date) 176/97 H 180/103 H unknown) (unknown) (no (unknown) (unknown) Blood Pressure (units (unknown) date) 177/98 H unknown) (unknown) (no (unknown) (unknown) Blood Pressure (units (unknown) date) 179/96 H unknown) (unknown) (no (unknown) (unknown) Blood Pressure (units (unknown) date) 180/98 H unknown) (unknown) (no (unknown) (unknown) Blood Pressure (units (unknown) date) 186/97 H 187/100 H unknown) (unknown) (no (unknown) (unknown) Blood Pressure (units (unknown) date) 193/101 H 190/108 H unknown) (unknown) (no (unknown) (unknown) Blood Pressure (units (unknown) date) unknown) (unknown) (no (unknown) (unknown) CAD. His last cath (units (unknown) date) was a few years ago unknown) and noted a lesion in one artery that was (unknown) (no (unknown) (unknown) CK-MB (CK-2) 0.77 (units (unknown) date) 0.69 unknown) (unknown) (no (unknown) (unknown) CK-MB (CK-2) Rel (units (unknown) date) Index 0.5 L 0.5 L unknown) (unknown) (no (unknown) (unknown) CK-MB (CK-2) Rel (units (unknown) date) Index unknown) (unknown) (no (unknown) (unknown) CK-MB (CK-2) (units (u nknown) date) unknown) (unknown) (no (unknown) (unknown) CODE: Full (units (unk nown) date) unknown) (unknown) (no (unknown) (unknown) CV: regular rate (units (unknown) date) and rhythm, no unknown) murmurs (unknown) (no (unknown) (unknown) Calcium 9.5 (units (un known) date) unknown) (unknown) (no (unknown) (unknown) Calcium (units (unkno wn) date) unknown) (unknown) (no (unknown) (unknown) Carbon Dioxide 29 (units (unknown) date) unknown) (unknown) (no (unknown) (unknown) Carbon Dioxide (units (unknown) date) unknown) (unknown) (no (unknown) (unknown) Cervical (units (unkno wn) date) radiculopathy due to unknown) osteoarthritis of spine (unknown) (no (unknown) (unknown) Chief complaint: (units (unknown) date) neck and chest pain unknown) (unknown) (no (unknown) (unknown) Chloride 102 (units (u nknown) date) unknown) (unknown) (no (unknown) (unknown) Chloride (units (unkno wn) date) unknown) (unknown) (no (unknown) (unknown) Coronary artery (units (unknown) date) disease unknown) (unknown) (no (unknown) (unknown) Creatinine 0.77 (units (unknown) date) unknown) (unknown) (no (unknown) (unknown) Creatinine (units (unk nown) date) unknown) (unknown) (no (unknown) (unknown) Critical Care time: (unit s (unknown) date) unknown) (unknown) (no (unknown) (unknown) D-Dimer 220 (units (un known) date) unknown) (unknown) (no (unknown) (unknown) D-Dimer (units (unkno wn) date) unknown) (unknown) (no (unknown) (unknown) : 1970 (units (unknown) date) Acct:[id number] unknown) (unknown) (no (unknown) (unknown) Date of Service: (units (unknown) date) 09/09/22 unknown) (unknown) (no (unknown) (unknown) Depression (units (unk nown) date) unknown) (unknown) (no (unknown) (unknown) ED. (units (unkno wn) date) unknown) (unknown) (no (unknown) (unknown) EXT: warm and well (units (unknown) date) perfused with no unknown) edema (unknown) (no (unknown) (unknown) Environment (units (un known) date) unknown) (unknown) (no (unknown) (unknown) Eos # (Auto) 200 (units (unknown) date) unknown) (unknown) (no (unknown) (unknown) Eos # (Auto) (units (u nknown) date) unknown) (unknown) (no (unknown) (unknown) Eos % (Auto) 2.7 (units (unknown) date) unknown) (unknown) (no (unknown) (unknown) Eos % (Auto) (units (u nknown) date) unknown) (unknown) (no (unknown) (unknown) Essential (units (unkn own) date) hypertension unknown) (unknown) (no (unknown) (unknown) Estimated GFR > 60 (units (unknown) date) unknown) (unknown) (no (unknown) (unknown) Estimated GFR (units ( unknown) date) unknown) (unknown) (no (unknown) (unknown) Exam Narrative: (units (unknown) date) unknown) (unknown) (no (unknown) (unknown) Exam (units (unkno wn) date) unknown) (unknown) (no (unknown) (unknown) Family + Social (units (unknown) date) History unknown) (unknown) (no (unknown) (unknown) Family History (units (unknown) date) (Reviewed 09/09/22 @ unknown) 20:49 by Daniel Hector MD) (unknown) (no (unknown) (unknown) Father Hypertension (unit s (unknown) date) unknown) (unknown) (no (unknown) (unknown) Feels Safe in (units ( unknown) date) Current Yes unknown) (unknown) (no (unknown) (unknown) GEN: no acute (units ( unknown) date) distress unknown) (unknown) (no (unknown) (unknown) Generalized anxiety (unit s (unknown) date) disorder with panic unknown) attacks (unknown) (no (unknown) (unknown) Globulin 3.4 (units (u nknown) date) unknown) (unknown) (no (unknown) (unknown) Globulin (units (unkno wn) date) unknown) (unknown) (no (unknown) (unknown) Glucose 190 H (units ( unknown) date) unknown) (unknown) (no (unknown) (unknown) Glucose (units (unkno wn) date) unknown) (unknown) (no (unknown) (unknown) HEENT: moist mucous (unit s (unknown) date) membranes, PERRL unknown) (unknown) (no (unknown) (unknown) Hct 46.0 (units (unkno wn) date) unknown) (unknown) (no (unknown) (unknown) Hct (units (unkno wn) date) unknown) (unknown) (no (unknown) (unknown) Herniated (units (unkn own) date) intervertebral disc unknown) of lumbar spine (unknown) (no (unknown) (unknown) Hgb 15.3 (units (unkno wn) date) unknown) (unknown) (no (unknown) (unknown) Hgb (units (unkno wn) date) unknown) (unknown) (no (unknown) (unknown) History + Physical (units (unknown) date) Report unknown) (unknown) (no (unknown) (unknown) History of Present (units (unknown) date) Illness unknown) (unknown) (no (unknown) (unknown) Home Medications (units (unknown) date) and Allergies unknown) (unknown) (no (unknown) (unknown) Home Medications (units (unknown) date) unknown) (unknown) (no (unknown) (unknown) Hx of cervical (units (unknown) date) discectomy (-2013) unknown) (unknown) (no (unknown) (unknown) Hyperlipidemia (units (unknown) date) unknown) (unknown) (no (unknown) (unknown) Hypertension (units (u nknown) date) unknown) (unknown) (no (unknown) (unknown) I have discussed (units (unknown) date) the care of the unknown) patient with the ED physician and bedside (unknown) (no (unknown) (unknown) I have utilized all (unit s (unknown) date) available resources unknown) to obtain, update, or review the (unknown) (no (unknown) (unknown) I have utilized all (unit s (unknown) date) avilable resources unknown) to reconcile the patient's home (unknown) (no (unknown) (unknown) I spent a total of (units (unknown) date) [] minutes of unknown) critical care time on this patient's care (unknown) (no (unknown) (unknown) INR 1.0 (units (unkno wn) date) unknown) (unknown) (no (unknown) (unknown) INR (units (unkno wn) date) unknown) (unknown) (no (unknown) (unknown) In the ED workup (units (unknown) date) was done, vitals unknown) notable for afebrile, heart rate in 110s, o2 (unknown) (no (unknown) (unknown) [facility] (units (unknown) date) [address] unknown) [place] [address] (unknown) (no (unknown) (unknown) Laboratory Results (units (unknown) date) - last 24 hr unknown) (unknown) (no (unknown) (unknown) Labs (units (unkno wn) date) unknown) (unknown) (no (unknown) (unknown) Labs: (units (unkno wn) date) unknown) (unknown) (no (unknown) (unknown) Lipase 51 (units (unkn own) date) unknown) (unknown) (no (unknown) (unknown) Lipase (units (unkno wn) date) unknown) (unknown) (no (unknown) (unknown) Lymph # (Auto) 1300 (unit s (unknown) date) unknown) (unknown) (no (unknown) (unknown) Lymph # (Auto) (units (unknown) date) unknown) (unknown) (no (unknown) (unknown) Lymph % (Auto) 14.9 (unit s (unknown) date) L unknown) (unknown) (no (unknown) (unknown) Lymph % (Auto) (units (unknown) date) unknown) (unknown) (no (unknown) (unknown) MCH 30.3 (units (unkno wn) date) unknown) (unknown) (no (unknown) (unknown) MCH (units (unkno wn) date) unknown) (unknown) (no (unknown) (unknown) MCHC 33.2 (units (unkn own) date) unknown) (unknown) (no (unknown) (unknown) MCHC (units (unkno wn) date) unknown) (unknown) (no (unknown) (unknown) MCV 91.2 (units (unkno wn) date) unknown) (unknown) (no (unknown) (unknown) MCV (units (unkno wn) date) unknown) (unknown) (no (unknown) (unknown) MIPS - Meds (units (un known) date) unknown) (unknown) (no (unknown) (unknown) Magnesium 2.0 (units ( unknown) date) unknown) (unknown) (no (unknown) (unknown) Magnesium (units (unkn own) date) unknown) (unknown) (no (unknown) (unknown) Medical History (units (unknown) date) (Reviewed 09/09/22 @ unknown) 20:49 by Daniel Hector MD) (unknown) (no (unknown) (unknown) Medication (units (unk nown) date) Instructions unknown) Recorded Confirmed Type (unknown) (no (unknown) (unknown) Meds (units (unkno wn) date) unknown) (unknown) (no (unknown) (unknown) Mc[place]osh # (Auto) 500 (units (unknown) date) unknown) (unknown) (no (unknown) (unknown) [place]osh # (Auto) (units ( unknown) date) unknown) (unknown) (no (unknown) (unknown) [place]osh % (Auto) 5.5 (units (unknown) date) unknown) (unknown) (no (unknown) (unknown) Mc[place]osh % (Auto) (units ( unknown) date) unknown) (unknown) (no (unknown) (unknown) Mother Diabetes (units (unknown) date) mellitus unknown) (unknown) (no (unknown) (unknown) Mr. Alonso is a 52M (unit s (unknown) date) with CAD, cervical unknown) radiculopathy, opiate addiction, HTN who (unknown) (no (unknown) (unknown) NECK: trachea (units ( unknown) date) midline, no JVD unknown) (unknown) (no (unknown) (unknown) NEURO: awake, (units ( unknown) date) alert, oriented, no unknown) focal deficits (unknown) (no (unknown) (unknown) Narrative (units (unkn own) date) unknown) (unknown) (no (unknown) (unknown) Narrative: (units (unk nown) date) unknown) (unknown) (no (unknown) (unknown) Neut # (Auto) 6400 (units (unknown) date) unknown) (unknown) (no (unknown) (unknown) Neut # (Auto) (units ( unknown) date) unknown) (unknown) (no (unknown) (unknown) Neut % (Auto) 76.0 (units (unknown) date) H unknown) (unknown) (no (unknown) (unknown) Neut % (Auto) (units ( unknown) date) unknown) (unknown) (no (unknown) (unknown) Objective (units (unkn own) date) unknown) (unknown) (no (unknown) (unknown) Opiate addiction (units (unknown) date) unknown) (unknown) (no (unknown) (unknown) Oxygen Delivery (units (unknown) date) Method Room Air unknown) (unknown) (no (unknown) (unknown) Oxygen Delivery (units (unknown) date) Method unknown) (unknown) (no (unknown) (unknown) PT 11.1 (units (unkno wn) date) unknown) (unknown) (no (unknown) (unknown) PT (units (unkno wn) date) unknown) (unknown) (no (unknown) (unknown) PULM: clear (units (un known) date) bilaterally unknown) 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 unknown) (unknown) (no (unknown) (unknown) Patient History (units (unknown) date) unknown) (unknown) (no (unknown) (unknown) Patient: (units (unknown) date) Anthony MCDUFFIE MR# unknown) (unknown) (no (unknown) (unknown) Peripheral (units (unk nown) date) neuropathy unknown) (unknown) (no (unknown) (unknown) Plt Count 230 (units ( unknown) date) unknown) (unknown) (no (unknown) (unknown) Plt Count (units (unkn own) date) unknown) (unknown) (no (unknown) (unknown) Potassium 4.2 (units ( unknown) date) unknown) (unknown) (no (unknown) (unknown) Potassium (units (unkn own) date) unknown) (unknown) (no (unknown) (unknown) Provider: (units (unkn own) date) Dnaiel Hecotr MD unknown) (unknown) (no (unknown) (unknown) Proxy: Ada (units (u nknown) date) Rapprabian, life unknown) partner (unknown) (no (unknown) (unknown) Pulse Oximetry 91 (units (unknown) date) 92 unknown) (unknown) (no (unknown) (unknown) Pulse Oximetry 91 (units (unknown) date) unknown) (unknown) (no (unknown) (unknown) Pulse Oximetry 92 (units (unknown) date) 92 unknown) (unknown) (no (unknown) (unknown) Pulse Oximetry 92 (units (unknown) date) unknown) (unknown) (no (unknown) (unknown) Pulse Oximetry 93 (units (unknown) date) 93 unknown) (unknown) (no (unknown) (unknown) Pulse Oximetry 93 (units (unknown) date) unknown) (unknown) (no (unknown) (unknown) Pulse Oximetry 94 (units (unknown) date) 94 unknown) (unknown) (no (unknown) (unknown) Pulse Oximetry 94 (units (unknown) date) 95 unknown) (unknown) (no (unknown) (unknown) Pulse Oximetry 94 (units (unknown) date) unknown) (unknown) (no (unknown) (unknown) Pulse Oximetry 95 (units (unknown) date) 94 unknown) (unknown) (no (unknown) (unknown) Pulse Oximetry 95 (units (unknown) date) 95 unknown) (unknown) (no (unknown) (unknown) Pulse Oximetry 95 (units (unknown) date) 96 unknown) (unknown) (no (unknown) (unknown) Pulse Oximetry 95 (units (unknown) date) unknown) (unknown) (no (unknown) (unknown) Pulse Oximetry 96 (units (unknown) date) unknown) (unknown) (no (unknown) (unknown) Pulse Oximetry 97 (units (unknown) date) unknown) (unknown) (no (unknown) (unknown) Pulse Oximetry 98 (units (unknown) date) 95 96 unknown) (unknown) (no (unknown) (unknown) Pulse Rate 100 H (units (unknown) date) 120 H unknown) (unknown) (no (unknown) (unknown) Pulse Rate 101 H (units (unknown) date) unknown) (unknown) (no (unknown) (unknown) Pulse Rate 102 H (units (unknown) date) 103 H unknown) (unknown) (no (unknown) (unknown) Pulse Rate 102 H 98 (unit s (unknown) date) H unknown) (unknown) (no (unknown) (unknown) Pulse Rate 105 H (units (unknown) date) 100 H unknown) (unknown) (no (unknown) (unknown) Pulse Rate 105 H (units (unknown) date) unknown) (unknown) (no (unknown) (unknown) Pulse Rate 106 H (units (unknown) date) unknown) (unknown) (no (unknown) (unknown) Pulse Rate 119 H (units (unknown) date) 112 H 110 H unknown) (unknown) (no (unknown) (unknown) Pulse Rate 79 (units ( unknown) date) unknown) (unknown) (no (unknown) (unknown) Pulse Rate 86 82 (units (unknown) date) unknown) (unknown) (no (unknown) (unknown) Pulse Rate 89 88 (units (unknown) date) unknown) (unknown) (no (unknown) (unknown) Pulse Rate 90 90 (units (unknown) date) unknown) (unknown) (no (unknown) (unknown) Pulse Rate 91 H (units (unknown) date) unknown) (unknown) (no (unknown) (unknown) Pulse Rate 92 H (units (unknown) date) unknown) (unknown) (no (unknown) (unknown) Pulse Rate 93 H (units (unknown) date) unknown) (unknown) (no (unknown) (unknown) Pulse Rate 96 H (units (unknown) date) unknown) (unknown) (no (unknown) (unknown) Pulse Rate 97 H 100 (unit s (unknown) date) H 97 H unknown) (unknown) (no (unknown) (unknown) Pulse Rate 97 H 102 (unit s (unknown) date) H unknown) (unknown) (no (unknown) (unknown) Pulse Rate 97 H 96 (units (unknown) date) H unknown) (unknown) (no (unknown) (unknown) Pulse Rate 97 H 99 (units (unknown) date) H unknown) (unknown) (no (unknown) (unknown) Pulse Rate 97 H (units (unknown) date) unknown) (unknown) (no (unknown) (unknown) Pulse Rate 98 H 97 (units (unknown) date) H unknown) (unknown) (no (unknown) (unknown) Pulse Rate 99 H (units (unknown) date) unknown) (unknown) (no (unknown) (unknown) Quality (units (unkno wn) date) unknown) (unknown) (no (unknown) (unknown) RBC 5.04 (units (unkno wn) date) unknown) (unknown) (no (unknown) (unknown) RBC (units (unkno wn) date) unknown) (unknown) (no (unknown) (unknown) RDW 13.0 (units (unkno wn) date) unknown) (unknown) (no (unknown) (unknown) RDW (units (unkno wn) date) unknown) (unknown) (no (unknown) (unknown) REACTION' (units (unkn own) date) unknown) (unknown) (no (unknown) (unknown) RLS (restless legs (units (unknown) date) syndrome) unknown) (unknown) (no (unknown) (unknown) Respiratory Rate 11 (unit s (unknown) date) L unknown) (unknown) (no (unknown) (unknown) Respiratory Rate 12 (unit s (unknown) date) unknown) (unknown) (no (unknown) (unknown) Respiratory Rate 13 (unit s (unknown) date) unknown) (unknown) (no (unknown) (unknown) Respiratory Rate 14 (unit s (unknown) date) unknown) (unknown) (no (unknown) (unknown) Respiratory Rate 16 (unit s (unknown) date) unknown) (unknown) (no (unknown) (unknown) Respiratory Rate 18 (unit s (unknown) date) 19 unknown) (unknown) (no (unknown) (unknown) Respiratory Rate 20 (unit s (unknown) date) unknown) (unknown) (no (unknown) (unknown) Respiratory Rate 24 (unit s (unknown) date) unknown) (unknown) (no (unknown) (unknown) Respiratory Rate (units (unknown) date) unknown) (unknown) (no (unknown) (unknown) Review of Systems (units (unknown) date) unknown) (unknown) (no (unknown) (unknown) SARS-CoV-2 (PCR) (units (unknown) date) Negative unknown) (unknown) (no (unknown) (unknown) SARS-CoV-2 (PCR) (units (unknown) date) unknown) (unknown) (no (unknown) (unknown) Safety + (units (unkno wn) date) Behavioral: unknown) (unknown) (no (unknown) (unknown) Signed (units (unkno wn) date) By:<Electronically unknown) signed by Daniel Hector MD> (unknown) (no (unknown) (unknown) Smoking Status (units (unknown) date) Current every day unknown) smoker (unknown) (no (unknown) (unknown) Social History: (units (unknown) date) unknown) (unknown) (no (unknown) (unknown) Sodium 138 (units (unk nown) date) unknown) (unknown) (no (unknown) (unknown) Sodium (units (unkno wn) date) unknown) (unknown) (no (unknown) (unknown) Spinal stenosis of (units (unknown) date) lumbar region with unknown) neurogenic claudication (unknown) (no (unknown) (unknown) Spondylolisthesis (units (unknown) date) of lumbar region unknown) (unknown) (no (unknown) (unknown) Stenosis of artery (units (unknown) date) unknown) (unknown) (no (unknown) (unknown) Substance Use Type (units (unknown) date) does not use unknown) (unknown) (no (unknown) (unknown) Surgical History (units (unknown) date) (Reviewed 09/09/22 @ unknown) 20:49 by Daniel Hector MD) (unknown) (no (unknown) (unknown) Temperature 98.1 F (units (unknown) date) unknown) (unknown) (no (unknown) (unknown) Temperature (units (un known) date) unknown) (unknown) (no (unknown) (unknown) Threatened By a (units (unknown) date) Person unknown) (unknown) (no (unknown) (unknown) Time Spent With (units (unknown) date) Patient unknown) (unknown) (no (unknown) (unknown) Tobacco + Substance (unit s (unknown) date) use: unknown) (unknown) (no (unknown) (unknown) Tobacco type (units (u nknown) date) cigarettes unknown) (unknown) (no (unknown) (unknown) Total Bilirubin 0.5 (unit s (unknown) date) unknown) (unknown) (no (unknown) (unknown) Total Bilirubin (units (unknown) date) unknown) (unknown) (no (unknown) (unknown) Total Creatine (units (unknown) date) Kinase 163 149 unknown) (unknown) (no (unknown) (unknown) Total Creatine (units (unknown) date) Kinase unknown) (unknown) (no (unknown) (unknown) Total Protein 8.1 (units (unknown) date) unknown) (unknown) (no (unknown) (unknown) Total Protein (units ( unknown) date) unknown) (unknown) (no (unknown) (unknown) Troponin I < 0.012 (units (unknown) date) < 0.012 unknown) (unknown) (no (unknown) (unknown) Troponin I (units (unk nown) date) unknown) (unknown) (no (unknown) (unknown) Vital Signs (units (un known) date) unknown) (unknown) (no (unknown) (unknown) Vitamin D (units (unkn own) date) deficiency unknown) (unknown) (no (unknown) (unknown) WBC 8.4 (units (unkno wn) date) unknown) (unknown) (no (unknown) (unknown) WBC (units (unkno wn) date) unknown) (unknown) (no (unknown) (unknown) [Embedded Image Not (unit s (unknown) date) Available] unknown) (unknown) (no (unknown) (unknown) alcohol intake (units (unknown) date) frequency a few unknown) times a month (unknown) (no (unknown) (unknown) alcohol intake (units (unknown) date) never unknown) (unknown) (no (unknown) (unknown) alprazolam 0.5 mg (units (unknown) date) tablet 0.5 mg PO unknown) BEDTIME PRN sleep #14 05/20/22 09/09/22 Rx (unknown) (no (unknown) (unknown) and xray. (units (unkn own) date) unknown) (unknown) (no (unknown) (unknown) arm. Today he had (units (unknown) date) let sided chest pain unknown) that is somewhat different than his (unknown) (no (unknown) (unknown) aspirin 81 mg (units ( unknown) date) tablet,delayed 81 mg unknown) PO DAILY 04/11/22 09/09/22 History (unknown) (no (unknown) (unknown) atorvastatin 40 mg (units (unknown) date) tablet 40 mg PO unknown) BEDTIME #90 tabs 04/11/22 09/09/22 Rx (unknown) (no (unknown) (unknown) bupropion HCl 150 (units (unknown) date) mg 24 hr tablet, 150 unknown) mg PO BID #60 tabs 05/20/22 09/09/22 Rx (unknown) (no (unknown) (unknown) cervical (units (unkno wn) date) radiculopathy. He unknown) has developed pain that radiates down the entire left (unknown) (no (unknown) (unknown) droperidol (units (unk nown) date) [DROPERIDOL] Allergy unknown) Mild 'COGENIC Verified 07/12/22 14:01 (unknown) (no (unknown) (unknown) extended release (units (unknown) date) unknown) (unknown) (no (unknown) (unknown) few months ago for (units (unknown) date) similar pain and had unknown) an inconclusive exercise stress test and (unknown) (no (unknown) (unknown) gabapentin 600 mg (units (unknown) date) tablet 600 mg PO TID unknown) #270 tabs 05/20/22 09/09/22 Rx (unknown) (no (unknown) (unknown) herbals, (units (unkno wn) date) cannabis/cannabidiol unknown) products, and vitamin/mineral/diet sue (unknown) (no (unknown) (unknown) household members (units (unknown) date) family unknown) (unknown) (no (unknown) (unknown) is pending a (units (u nknown) date) nuclear stress test. unknown) He has stated his pain is constant since this (unknown) (no (unknown) (unknown) lidocaine 5 % (units ( unknown) date) topical patch 2 unknown) patch topical DAILY #30 ea 07/12/22 Rx (unknown) (no (unknown) (unknown) medications (units (un known) date) unknown) (unknown) (no (unknown) (unknown) metoprolol tartrate (unit s (unknown) date) 25 mg tablet 25 mg unknown) PO BID #180 tabs 04/09/22 09/09/22 Rx (unknown) (no (unknown) (unknown) mg tablet (units (unkn own) date) (Percocet) unknown) (unknown) (no (unknown) (unknown) morning, nothing (units (unknown) date) has relieved it unknown) aside from pain medication he received in the (unknown) (no (unknown) (unknown) normal neck and arm (unit s (unknown) date) pain. No shortness unknown) of breath. Of note he does have known (unknown) (no (unknown) (unknown) not large enough to (unit s (unknown) date) be intervened upon. unknown) He is taking aspirin. He was admitted a (unknown) (no (unknown) (unknown) nurse. I have (units ( unknown) date) discussed the plan unknown) with the patient. I have reviewed labs and EKG (unknown) (no (unknown) (unknown) oxycodone-acetaminop (unit s (unknown) date) hen 5 mg-325 2 tab unknown) PO Q8H PRN pain 09/09/22 09/09/22 History (unknown) (no (unknown) (unknown) patient?s current (units (unknown) date) medications. [If unknown) Yes, STOP here]: Yes (unknown) (no (unknown) (unknown) presented to the (units (unknown) date) hospital chest unknown) painn. He has a long history of neck pain due to (unknown) (no (unknown) (unknown) release (units (unkno wn) date) unknown) (unknown) (no (unknown) (unknown) sats 98% on room (units (unknown) date) air, blood pressure unknown) 170s/90s. Labs notable for WBC 8.4, hgb (unknown) (no (unknown) (unknown) sertraline 50 mg (units (unknown) date) tablet 50 mg PO unknown) DAILY #90 tabs 04/09/22 05/20/22 Rx (unknown) (no (unknown) (unknown) sinus tachcyardia. (units (unknown) date) He was admitted for unknown) further treatment. (unknown) (no (unknown) (unknown) tabs (units (unkno wn) date) unknown) (unknown) (no (unknown) (unknown) today; this time is (unit s (unknown) date) exclusive of unknown) procedural time. Result panel [id number] (unknown) (no (unknown) (unknown) (no value) (units (unk nown) date) unknown) (unknown) (no (unknown) (unknown) > 09/09/22 2203 (units (unknown) date) unknown) (unknown) (no (unknown) (unknown) 'Current (units (unkno wn) date) medications' to unknown) include all prescriptions, lnmo-vcz-knsphpr products, (unknown) (no (unknown) (unknown) (Lidoderm) (units (unk nown) date) unknown) (unknown) (no (unknown) (unknown) (nutritional) (units ( unknown) date) supplements. unknown) (unknown) (no (unknown) (unknown) (past 8 hours): (units (unknown) date) unknown) (unknown) (no (unknown) (unknown) ADDENDUM (units (u nknown) date) unknown) (unknown) (no (unknown) (unknown) -EKG with question (units (unknown) date) of ST depressions in unknown) inferolateral leads (unknown) (no (unknown) (unknown) -HEART score of 5 (units (unknown) date) unknown) (unknown) (no (unknown) (unknown) -coninue home (units ( unknown) date) medications unknown) (unknown) (no (unknown) (unknown) -follow up as (units ( unknown) date) outpatient unknown) (unknown) (no (unknown) (unknown) -ordered aspirin (units (unknown) date) unknown) (unknown) (no (unknown) (unknown) -patient has known (units (unknown) date) CAD unknown) (unknown) (no (unknown) (unknown) -plan for nuclear (units (unknown) date) stress test unknown) (unknown) (no (unknown) (unknown) -recent exercise (units (unknown) date) stress test unknown) inconclusive for inducible ischemia (unknown) (no (unknown) (unknown) -trend troponins (units (unknown) date) unknown) (unknown) (no (unknown) (unknown) -troponin negative (units (unknown) date) x2 unknown) (unknown) (no (unknown) (unknown) 09/09/22 09/09/22 (units (unknown) date) 09/09/22 unknown) (unknown) (no (unknown) (unknown) 09/09/22 16:10 (units (unknown) date) unknown) (unknown) (no (unknown) (unknown) 09/09/222201 (units ( unknown) date) unknown) (unknown) (no (unknown) (unknown) 09/09/222202 (units ( unknown) date) unknown) (unknown) (no (unknown) (unknown) 09/09/22 (units (unkno wn) date) unknown) (unknown) (no (unknown) (unknown) 1. Chest pain (units ( unknown) date) unknown) (unknown) (no (unknown) (unknown) 14 systems reviewed (unit s (unknown) date) and negative aside unknown) from what is noted in HPI (unknown) (no (unknown) (unknown) 14:10 16:10 16:10 (units (unknown) date) unknown) (unknown) (no (unknown) (unknown) 15.3, plts 230. (units (unknown) date) Creatinine 0.77. unknown) D-dimer 220. Troponin negative x2. EKG with (unknown) (no (unknown) (unknown) 15:54 09/09/22 (units (unknown) date) unknown) (unknown) (no (unknown) (unknown) 16:10 16:30 19:05 (units (unknown) date) unknown) (unknown) (no (unknown) (unknown) 16:15 09/09/22 (units (unknown) date) unknown) (unknown) (no (unknown) (unknown) 16:19 09/09/22 (units (unknown) date) unknown) (unknown) (no (unknown) (unknown) 16:19 (units (unkno wn) date) unknown) (unknown) (no (unknown) (unknown) 16:30 09/09/22 (units (unknown) date) unknown) (unknown) (no (unknown) (unknown) 16:30 (units (unkno wn) date) unknown) (unknown) (no (unknown) (unknown) 16:35 09/09/22 (units (unknown) date) unknown) (unknown) (no (unknown) (unknown) 16:40 09/09/22 (units (unknown) date) unknown) (unknown) (no (unknown) (unknown) 16:40 (units (unkno wn) date) unknown) (unknown) (no (unknown) (unknown) 16:45 09/09/22 (units (unknown) date) unknown) (unknown) (no (unknown) (unknown) 16:50 09/09/22 (units (unknown) date) unknown) (unknown) (no (unknown) (unknown) 16:50 (units (unkno wn) date) unknown) (unknown) (no (unknown) (unknown) 16:55 09/09/22 (units (unknown) date) unknown) (unknown) (no (unknown) (unknown) 16:55 (units (unkno wn) date) unknown) (unknown) (no (unknown) (unknown) 17:00 09/09/22 (units (unknown) date) unknown) (unknown) (no (unknown) (unknown) 17:05 09/09/22 (units (unknown) date) unknown) (unknown) (no (unknown) (unknown) 17:05 (units (unkno wn) date) unknown) (unknown) (no (unknown) (unknown) 17:10 09/09/22 (units (unknown) date) unknown) (unknown) (no (unknown) (unknown) 17:10 (units (unkno wn) date) unknown) (unknown) (no (unknown) (unknown) 17:14 09/09/22 (units (unknown) date) unknown) (unknown) (no (unknown) (unknown) 17:15 09/09/22 (units (unknown) date) unknown) (unknown) (no (unknown) (unknown) 17:15 (units (unkno wn) date) unknown) (unknown) (no (unknown) (unknown) 17:20 09/09/22 (units (unknown) date) unknown) (unknown) (no (unknown) (unknown) 17:20 (units (unkno wn) date) unknown) (unknown) (no (unknown) (unknown) 17:25 09/09/22 (units (unknown) date) unknown) (unknown) (no (unknown) (unknown) 17:30 09/09/22 (units (unknown) date) unknown) (unknown) (no (unknown) (unknown) 17:30 (units (unkno wn) date) unknown) (unknown) (no (unknown) (unknown) 17:35 09/09/22 (units (unknown) date) unknown) (unknown) (no (unknown) (unknown) 17:35 (units (unkno wn) date) unknown) (unknown) (no (unknown) (unknown) 17:40 09/09/22 (units (unknown) date) unknown) (unknown) (no (unknown) (unknown) 17:42 09/09/22 (units (unknown) date) unknown) (unknown) (no (unknown) (unknown) 17:45 09/09/22 (units (unknown) date) unknown) (unknown) (no (unknown) (unknown) 17:45 (units (unkno wn) date) unknown) (unknown) (no (unknown) (unknown) 17:50 09/09/22 (units (unknown) date) unknown) (unknown) (no (unknown) (unknown) 17:50 (units (unkno wn) date) unknown) (unknown) (no (unknown) (unknown) 17:55 09/09/22 (units (unknown) date) unknown) (unknown) (no (unknown) (unknown) 18:00 09/09/22 (units (unknown) date) unknown) (unknown) (no (unknown) (unknown) 18:00 (units (unkno wn) date) unknown) (unknown) (no (unknown) (unknown) 18:05 09/09/22 (units (unknown) date) unknown) (unknown) (no (unknown) (unknown) 18:05 (units (unkno wn) date) unknown) (unknown) (no (unknown) (unknown) 18:10 09/09/22 (units (unknown) date) unknown) (unknown) (no (unknown) (unknown) 18:10 (units (unkno wn) date) unknown) (unknown) (no (unknown) (unknown) 18:11 09/09/22 (units (unknown) date) unknown) (unknown) (no (unknown) (unknown) 18:15 09/09/22 (units (unknown) date) unknown) (unknown) (no (unknown) (unknown) 18:20 09/09/22 (units (unknown) date) unknown) (unknown) (no (unknown) (unknown) 18:20 (units (unkno wn) date) unknown) (unknown) (no (unknown) (unknown) 18:25 09/09/22 (units (unknown) date) unknown) (unknown) (no (unknown) (unknown) 18:25 (units (unkno wn) date) unknown) (unknown) (no (unknown) (unknown) 18:30 09/09/22 (units (unknown) date) unknown) (unknown) (no (unknown) (unknown) 18:35 09/09/22 (units (unknown) date) unknown) (unknown) (no (unknown) (unknown) 18:35 (units (unkno wn) date) unknown) (unknown) (no (unknown) (unknown) 18:40 09/09/22 (units (unknown) date) unknown) (unknown) (no (unknown) (unknown) 18:40 (units (unkno wn) date) unknown) (unknown) (no (unknown) (unknown) 18:45 09/09/22 (units (unknown) date) unknown) (unknown) (no (unknown) (unknown) 18:50 09/09/22 (units (unknown) date) unknown) (unknown) (no (unknown) (unknown) 18:50 (units (unkno wn) date) unknown) (unknown) (no (unknown) (unknown) 18:55 09/09/22 (units (unknown) date) unknown) (unknown) (no (unknown) (unknown) 18:55 (units (unkno wn) date) unknown) (unknown) (no (unknown) (unknown) 19:00 09/09/22 (units (unknown) date) unknown) (unknown) (no (unknown) (unknown) 19:30 (units (unkno wn) date) unknown) (unknown) (no (unknown) (unknown) 2. Cervical (units (un known) date) radiculopathy unknown) (unknown) (no (unknown) (unknown) 20:00 (units (unkno wn) date) unknown) (unknown) (no (unknown) (unknown) 3. Hypertension (units (unknown) date) unknown) (unknown) (no (unknown) (unknown) : [id number] (units (u nknown) date) unknown) (unknown) (no (unknown) (unknown) ABD: soft, (units (unk nown) date) nontender, unknown) nondistended, no organomegaly (unknown) (no (unknown) (unknown) ADD (attention (units (unknown) date) deficit disorder) unknown) (unknown) (no (unknown) (unknown) ALT 34 (units (unkno wn) date) unknown) (unknown) (no (unknown) (unknown) ALT (units (unkno wn) date) unknown) (unknown) (no (unknown) (unknown) APTT 32 (units (unkno wn) date) unknown) (unknown) (no (unknown) (unknown) APTT (units (unkno wn) date) unknown) (unknown) (no (unknown) (unknown) AST 37 (units (unkno wn) date) unknown) (unknown) (no (unknown) (unknown) AST (units (unkno wn) date) unknown) (unknown) (no (unknown) (unknown) Addendum Documented (unit s (unknown) date) By: Daniel Hector unknown) (unknown) (no (unknown) (unknown) Addendum Signed By: (unit s (unknown) date) <Electronically unknown) signed by Daniel Hector MD (unknown) (no (unknown) (unknown) Age/Sex: 52 / M (units (unknown) date) unknown) (unknown) (no (unknown) (unknown) Albumin 4.7 (units (un known) date) unknown) (unknown) (no (unknown) (unknown) Albumin (units (unkno wn) date) unknown) (unknown) (no (unknown) (unknown) Albumin/Globulin (units (unknown) date) Ratio 1.4 unknown) (unknown) (no (unknown) (unknown) Albumin/Globulin (units (unknown) date) Ratio unknown) (unknown) (no (unknown) (unknown) Alkaline (units (unkno wn) date) Phosphatase 60 unknown) (unknown) (no (unknown) (unknown) Alkaline (units (unkno wn) date) Phosphatase unknown) (unknown) (no (unknown) (unknown) Allergies (units (unkn own) date) unknown) (unknown) (no (unknown) (unknown) Allergy/AdvReac (units (unknown) date) Type Severity unknown) Reaction Status Date / Time (unknown) (no (unknown) (unknown) Assessment + Plan (units (unknown) date) narrative: unknown) (unknown) (no (unknown) (unknown) Assessment + Plan (units (unknown) date) unknown) (unknown) (no (unknown) (unknown) Asthma (units (unkno wn) date) unknown) (unknown) (no (unknown) (unknown) BUN 12 (units (unkno wn) date) unknown) (unknown) (no (unknown) (unknown) BUN (units (unkno wn) date) unknown) (unknown) (no (unknown) (unknown) BUN/Creatinine (units (unknown) date) Ratio 15.6 unknown) (unknown) (no (unknown) (unknown) BUN/Creatinine (units (unknown) date) Ratio unknown) (unknown) (no (unknown) (unknown) Baso # (Auto) 100 (units (unknown) date) unknown) (unknown) (no (unknown) (unknown) Baso # (Auto) (units ( unknown) date) unknown) (unknown) (no (unknown) (unknown) Baso % (Auto) 0.9 (units (unknown) date) unknown) (unknown) (no (unknown) (unknown) Baso % (Auto) (units ( unknown) date) unknown) (unknown) (no (unknown) (unknown) Been Physically (units (unknown) date) Hurt or No unknown) (unknown) (no (unknown) (unknown) Blood Pressure (units (unknown) date) 145/69 H unknown) (unknown) (no (unknown) (unknown) Blood Pressure (units (unknown) date) 149/82 H unknown) (unknown) (no (unknown) (unknown) Blood Pressure (units (unknown) date) 150/86 H unknown) (unknown) (no (unknown) (unknown) Blood Pressure (units (unknown) date) 151/59 H 169/95 H unknown) (unknown) (no (unknown) (unknown) Blood Pressure (units (unknown) date) 154/76 H 145/69 H unknown) (unknown) (no (unknown) (unknown) Blood Pressure (units (unknown) date) 155/87 H unknown) (unknown) (no (unknown) (unknown) Blood Pressure (units (unknown) date) 157/88 H 163/86 H unknown) (unknown) (no (unknown) (unknown) Blood Pressure (units (unknown) date) 157/88 H 181/98 H unknown) (unknown) (no (unknown) (unknown) Blood Pressure (units (unknown) date) 158/81 H unknown) (unknown) (no (unknown) (unknown) Blood Pressure (units (unknown) date) 160/85 H 163/86 H unknown) (unknown) (no (unknown) (unknown) Blood Pressure (units (unknown) date) 160/88 H unknown) (unknown) (no (unknown) (unknown) Blood Pressure (units (unknown) date) 161/82 H 153/79 H unknown) (unknown) (no (unknown) (unknown) Blood Pressure (units (unknown) date) 164/90 H 158/88 H unknown) (unknown) (no (unknown) (unknown) Blood Pressure (units (unknown) date) 164/90 H 164/90 H unknown) (unknown) (no (unknown) (unknown) Blood Pressure (units (unknown) date) 170/87 H 185/103 H unknown) (unknown) (no (unknown) (unknown) Blood Pressure (units (unknown) date) 170/87 H unknown) (unknown) (no (unknown) (unknown) Blood Pressure (units (unknown) date) 173/82 H unknown) (unknown) (no (unknown) (unknown) Blood Pressure (units (unknown) date) 175/98 H 190/103 H unknown) (unknown) (no (unknown) (unknown) Blood Pressure (units (unknown) date) 176/97 H 180/103 H unknown) (unknown) (no (unknown) (unknown) Blood Pressure (units (unknown) date) 177/98 H unknown) (unknown) (no (unknown) (unknown) Blood Pressure (units (unknown) date) 179/96 H unknown) (unknown) (no (unknown) (unknown) Blood Pressure (units (unknown) date) 180/98 H unknown) (unknown) (no (unknown) (unknown) Blood Pressure (units (unknown) date) 186/97 H 187/100 H unknown) (unknown) (no (unknown) (unknown) Blood Pressure (units (unknown) date) 193/101 H 190/108 H unknown) (unknown) (no (unknown) (unknown) Blood Pressure (units (unknown) date) unknown) (unknown) (no (unknown) (unknown) CAD. His last cath (units (unknown) date) was a few years ago unknown) and noted a lesion in one artery that was (unknown) (no (unknown) (unknown) CK-MB (CK-2) 0.77 (units (unknown) date) 0.69 unknown) (unknown) (no (unknown) (unknown) CK-MB (CK-2) Rel (units (unknown) date) Index 0.5 L 0.5 L unknown) (unknown) (no (unknown) (unknown) CK-MB (CK-2) Rel (units (unknown) date) Index unknown) (unknown) (no (unknown) (unknown) CK-MB (CK-2) (units (u nknown) date) unknown) (unknown) (no (unknown) (unknown) CODE: Full (units (unk nown) date) unknown) (unknown) (no (unknown) (unknown) CV: regular rate (units (unknown) date) and rhythm, no unknown) murmurs (unknown) (no (unknown) (unknown) Calcium 9.5 (units (un known) date) unknown) (unknown) (no (unknown) (unknown) Calcium (units (unkno wn) date) unknown) (unknown) (no (unknown) (unknown) Carbon Dioxide 29 (units (unknown) date) unknown) (unknown) (no (unknown) (unknown) Carbon Dioxide (units (unknown) date) unknown) (unknown) (no (unknown) (unknown) Cervical (units (unkno wn) date) radiculopathy due to unknown) osteoarthritis of spine (unknown) (no (unknown) (unknown) Chief complaint: (units (unknown) date) neck and chest pain unknown) (unknown) (no (unknown) (unknown) Chloride 102 (units (u nknown) date) unknown) (unknown) (no (unknown) (unknown) Chloride (units (unkno wn) date) unknown) (unknown) (no (unknown) (unknown) Coronary artery (units (unknown) date) disease unknown) (unknown) (no (unknown) (unknown) Creatinine 0.77 (units (unknown) date) unknown) (unknown) (no (unknown) (unknown) Creatinine (units (unk nown) date) unknown) (unknown) (no (unknown) (unknown) Critical Care time: (unit s (unknown) date) unknown) (unknown) (no (unknown) (unknown) D-Dimer 220 (units (un known) date) unknown) (unknown) (no (unknown) (unknown) D-Dimer (units (unkno wn) date) unknown) (unknown) (no (unknown) (unknown) : 1970 (units (unknown) date) Acct:[id number] unknown) (unknown) (no (unknown) (unknown) Date of Service: (units (unknown) date) 09/09/22 unknown) (unknown) (no (unknown) (unknown) Depression (units (unk nown) date) unknown) (unknown) (no (unknown) (unknown) ED. (units (unkno wn) date) unknown) (unknown) (no (unknown) (unknown) EXT: warm and well (units (unknown) date) perfused with no unknown) edema (unknown) (no (unknown) (unknown) Environment (units (un known) date) unknown) (unknown) (no (unknown) (unknown) Eos # (Auto) 200 (units (unknown) date) unknown) (unknown) (no (unknown) (unknown) Eos # (Auto) (units (u nknown) date) unknown) (unknown) (no (unknown) (unknown) Eos % (Auto) 2.7 (units (unknown) date) unknown) (unknown) (no (unknown) (unknown) Eos % (Auto) (units (u nknown) date) unknown) (unknown) (no (unknown) (unknown) Essential (units (unkn own) date) hypertension unknown) (unknown) (no (unknown) (unknown) Estimated GFR > 60 (units (unknown) date) unknown) (unknown) (no (unknown) (unknown) Estimated GFR (units ( unknown) date) unknown) (unknown) (no (unknown) (unknown) Exam Narrative: (units (unknown) date) unknown) (unknown) (no (unknown) (unknown) Exam (units (unkno wn) date) unknown) (unknown) (no (unknown) (unknown) Family + Social (units (unknown) date) History unknown) (unknown) (no (unknown) (unknown) Family History (units (unknown) date) (Reviewed 09/09/22 @ unknown) 20:49 by Daniel Hector MD) (unknown) (no (unknown) (unknown) Father Hypertension (unit s (unknown) date) unknown) (unknown) (no (unknown) (unknown) Feels Safe in (units ( unknown) date) Current Yes unknown) (unknown) (no (unknown) (unknown) GEN: no acute (units ( unknown) date) distress unknown) (unknown) (no (unknown) (unknown) Generalized anxiety (unit s (unknown) date) disorder with panic unknown) attacks (unknown) (no (unknown) (unknown) Globulin 3.4 (units (u nknown) date) unknown) (unknown) (no (unknown) (unknown) Globulin (units (unkno wn) date) unknown) (unknown) (no (unknown) (unknown) Glucose 190 H (units ( unknown) date) unknown) (unknown) (no (unknown) (unknown) Glucose (units (unkno wn) date) unknown) (unknown) (no (unknown) (unknown) HEENT: moist mucous (unit s (unknown) date) membranes, PERRL unknown) (unknown) (no (unknown) (unknown) Hct 46.0 (units (unkno wn) date) unknown) (unknown) (no (unknown) (unknown) Hct (units (unkno wn) date) unknown) (unknown) (no (unknown) (unknown) Herniated (units (unkn own) date) intervertebral disc unknown) of lumbar spine (unknown) (no (unknown) (unknown) Hgb 15.3 (units (unkno wn) date) unknown) (unknown) (no (unknown) (unknown) Hgb (units (unkno wn) date) unknown) (unknown) (no (unknown) (unknown) History + Physical (units (unknown) date) Report unknown) (unknown) (no (unknown) (unknown) History of Present (units (unknown) date) Illness unknown) (unknown) (no (unknown) (unknown) Home Medications (units (unknown) date) and Allergies unknown) (unknown) (no (unknown) (unknown) Home Medications (units (unknown) date) unknown) (unknown) (no (unknown) (unknown) Hx of cervical (units (unknown) date) discectomy (-2013) unknown) (unknown) (no (unknown) (unknown) Hyperlipidemia (units (unknown) date) unknown) (unknown) (no (unknown) (unknown) Hypertension (units (u nknown) date) unknown) (unknown) (no (unknown) (unknown) I have discussed (units (unknown) date) the care of the unknown) patient with the ED physician and bedside (unknown) (no (unknown) (unknown) I have utilized all (unit s (unknown) date) available resources unknown) to obtain, update, or review the (unknown) (no (unknown) (unknown) I have utilized all (unit s (unknown) date) avilable resources unknown) to reconcile the patient's home (unknown) (no (unknown) (unknown) I spent a total of (units (unknown) date) [] minutes of unknown) critical care time on this patient's care (unknown) (no (unknown) (unknown) INR 1.0 (units (unkno wn) date) unknown) (unknown) (no (unknown) (unknown) INR (units (unkno wn) date) unknown) (unknown) (no (unknown) (unknown) In the ED workup (units (unknown) date) was done, vitals unknown) notable for afebrile, heart rate in 110s, o2 (unknown) (no (unknown) (unknown) [facility] (units (unknown) date) [address] unknown) [place] [address] (unknown) (no (unknown) (unknown) Laboratory Results (units (unknown) date) - last 24 hr unknown) (unknown) (no (unknown) (unknown) Labs (units (unkno wn) date) unknown) (unknown) (no (unknown) (unknown) Labs: (units (unkno wn) date) unknown) (unknown) (no (unknown) (unknown) Lipase 51 (units (unkn own) date) unknown) (unknown) (no (unknown) (unknown) Lipase (units (unkno wn) date) unknown) (unknown) (no (unknown) (unknown) Lymph # (Auto) 1300 (unit s (unknown) date) unknown) (unknown) (no (unknown) (unknown) Lymph # (Auto) (units (unknown) date) unknown) (unknown) (no (unknown) (unknown) Lymph % (Auto) 14.9 (unit s (unknown) date) L unknown) (unknown) (no (unknown) (unknown) Lymph % (Auto) (units (unknown) date) unknown) (unknown) (no (unknown) (unknown) MCH 30.3 (units (unkno wn) date) unknown) (unknown) (no (unknown) (unknown) MCH (units (unkno wn) date) unknown) (unknown) (no (unknown) (unknown) MCHC 33.2 (units (unkn own) date) unknown) (unknown) (no (unknown) (unknown) MCHC (units (unkno wn) date) unknown) (unknown) (no (unknown) (unknown) MCV 91.2 (units (unkno wn) date) unknown) (unknown) (no (unknown) (unknown) MCV (units (unkno wn) date) unknown) (unknown) (no (unknown) (unknown) MIPS - Meds (units (un known) date) unknown) (unknown) (no (unknown) (unknown) Magnesium 2.0 (units ( unknown) date) unknown) (unknown) (no (unknown) (unknown) Magnesium (units (unkn own) date) unknown) (unknown) (no (unknown) (unknown) Medical History (units (unknown) date) (Reviewed 09/09/22 @ unknown) 20:49 by Daniel Hector MD) (unknown) (no (unknown) (unknown) Medication (units (unk nown) date) Instructions unknown) Recorded Confirmed Type (unknown) (no (unknown) (unknown) Meds (units (unkno wn) date) unknown) (unknown) (no (unknown) (unknown) Mcintosh # (Auto) 500 (units (unknown) date) unknown) (unknown) (no (unknown) (unknown) Mcintosh # (Auto) (units ( unknown) date) unknown) (unknown) (no (unknown) (unknown) Mcintosh % (Auto) 5.5 (units (unknown) date) unknown) (unknown) (no (unknown) (unknown) Mcintosh % (Auto) (units ( unknown) date) unknown) (unknown) (no (unknown) (unknown) Mother Diabetes (units (unknown) date) mellitus unknown) (unknown) (no (unknown) (unknown) Mr. Alonso is a 52M (unit s (unknown) date) with CAD, cervical unknown) radiculopathy, opiate addiction, HTN who (unknown) (no (unknown) (unknown) NECK: trachea (units ( unknown) date) midline, no JVD unknown) (unknown) (no (unknown) (unknown) NEURO: awake, (units ( unknown) date) alert, oriented, no unknown) focal deficits (unknown) (no (unknown) (unknown) Narrative (units (unkn own) date) unknown) (unknown) (no (unknown) (unknown) Narrative: (units (unk nown) date) unknown) (unknown) (no (unknown) (unknown) Neut # (Auto) 6400 (units (unknown) date) unknown) (unknown) (no (unknown) (unknown) Neut # (Auto) (units ( unknown) date) unknown) (unknown) (no (unknown) (unknown) Neut % (Auto) 76.0 (units (unknown) date) H unknown) (unknown) (no (unknown) (unknown) Neut % (Auto) (units ( unknown) date) unknown) (unknown) (no (unknown) (unknown) Objective (units (unkn own) date) unknown) (unknown) (no (unknown) (unknown) Opiate addiction (units (unknown) date) unknown) (unknown) (no (unknown) (unknown) Oxygen Delivery (units (unknown) date) Method Room Air unknown) (unknown) (no (unknown) (unknown) Oxygen Delivery (units (unknown) date) Method unknown) (unknown) (no (unknown) (unknown) PT 11.1 (units (unkno wn) date) unknown) (unknown) (no (unknown) (unknown) PT (units (unkno wn) date) unknown) (unknown) (no (unknown) (unknown) PULM: clear (units (un known) date) bilaterally unknown) 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 unknown) (unknown) (no (unknown) (unknown) Patient: (units (unknown) date) Anthony MCDUFFIE MR# unknown) (unknown) (no (unknown) (unknown) Peripheral (units (unk nown) date) neuropathy unknown) (unknown) (no (unknown) (unknown) Plt Count 230 (units ( unknown) date) unknown) (unknown) (no (unknown) (unknown) Plt Count (units (unkn own) date) unknown) (unknown) (no (unknown) (unknown) Potassium 4.2 (units ( unknown) date) unknown) (unknown) (no (unknown) (unknown) Potassium (units (unkn own) date) unknown) (unknown) (no (unknown) (unknown) Provider: (units (unkn own) date) Daniel Hector MD unknown) (unknown) (no (unknown) (unknown) Proxy: Ada (units (u nknown) date) Terese, life unknown) partner (unknown) (no (unknown) (unknown) Pulse Oximetry 91 (units (unknown) date) 92 unknown) (unknown) (no (unknown) (unknown) Pulse Oximetry 91 (units (unknown) date) unknown) (unknown) (no (unknown) (unknown) Pulse Oximetry 92 (units (unknown) date) 92 unknown) (unknown) (no (unknown) (unknown) Pulse Oximetry 92 (units (unknown) date) unknown) (unknown) (no (unknown) (unknown) Pulse Oximetry 93 (units (unknown) date) 93 unknown) (unknown) (no (unknown) (unknown) Pulse Oximetry 93 (units (unknown) date) unknown) (unknown) (no (unknown) (unknown) Pulse Oximetry 94 (units (unknown) date) 94 unknown) (unknown) (no (unknown) (unknown) Pulse Oximetry 94 (units (unknown) date) 95 unknown) (unknown) (no (unknown) (unknown) Pulse Oximetry 94 (units (unknown) date) unknown) (unknown) (no (unknown) (unknown) Pulse Oximetry 95 (units (unknown) date) 94 unknown) (unknown) (no (unknown) (unknown) Pulse Oximetry 95 (units (unknown) date) 95 unknown) (unknown) (no (unknown) (unknown) Pulse Oximetry 95 (units (unknown) date) 96 unknown) (unknown) (no (unknown) (unknown) Pulse Oximetry 95 (units (unknown) date) unknown) (unknown) (no (unknown) (unknown) Pulse Oximetry 96 (units (unknown) date) unknown) (unknown) (no (unknown) (unknown) Pulse Oximetry 97 (units (unknown) date) unknown) (unknown) (no (unknown) (unknown) Pulse Oximetry 98 (units (unknown) date) 95 96 unknown) (unknown) (no (unknown) (unknown) Pulse Rate 100 H (units (unknown) date) 120 H unknown) (unknown) (no (unknown) (unknown) Pulse Rate 101 H (units (unknown) date) unknown) (unknown) (no (unknown) (unknown) Pulse Rate 102 H (units (unknown) date) 103 H unknown) (unknown) (no (unknown) (unknown) Pulse Rate 102 H 98 (unit s (unknown) date) H unknown) (unknown) (no (unknown) (unknown) Pulse Rate 105 H (units (unknown) date) 100 H unknown) (unknown) (no (unknown) (unknown) Pulse Rate 105 H (units (unknown) date) unknown) (unknown) (no (unknown) (unknown) Pulse Rate 106 H (units (unknown) date) unknown) (unknown) (no (unknown) (unknown) Pulse Rate 119 H (units (unknown) date) 112 H 110 H unknown) (unknown) (no (unknown) (unknown) Pulse Rate 79 (units ( unknown) date) unknown) (unknown) (no (unknown) (unknown) Pulse Rate 86 82 (units (unknown) date) unknown) (unknown) (no (unknown) (unknown) Pulse Rate 89 88 (units (unknown) date) unknown) (unknown) (no (unknown) (unknown) Pulse Rate 90 90 (units (unknown) date) unknown) (unknown) (no (unknown) (unknown) Pulse Rate 91 H (units (unknown) date) unknown) (unknown) (no (unknown) (unknown) Pulse Rate 92 H (units (unknown) date) unknown) (unknown) (no (unknown) (unknown) Pulse Rate 93 H (units (unknown) date) unknown) (unknown) (no (unknown) (unknown) Pulse Rate 96 H (units (unknown) date) unknown) (unknown) (no (unknown) (unknown) Pulse Rate 97 H 100 (unit s (unknown) date) H 97 H unknown) (unknown) (no (unknown) (unknown) Pulse Rate 97 H 102 (unit s (unknown) date) H unknown) (unknown) (no (unknown) (unknown) Pulse Rate 97 H 96 (units (unknown) date) H unknown) (unknown) (no (unknown) (unknown) Pulse Rate 97 H 99 (units (unknown) date) H unknown) (unknown) (no (unknown) (unknown) Pulse Rate 97 H (units (unknown) date) unknown) (unknown) (no (unknown) (unknown) Pulse Rate 98 H 97 (units (unknown) date) H unknown) (unknown) (no (unknown) (unknown) Pulse Rate 99 H (units (unknown) date) unknown) (unknown) (no (unknown) (unknown) Quality (units (unkno wn) date) unknown) (unknown) (no (unknown) (unknown) RBC 5.04 (units (unkno wn) date) unknown) (unknown) (no (unknown) (unknown) RBC (units (unkno wn) date) unknown) (unknown) (no (unknown) (unknown) RDW 13.0 (units (unkno wn) date) unknown) (unknown) (no (unknown) (unknown) RDW (units (unkno wn) date) unknown) (unknown) (no (unknown) (unknown) REACTION' (units (unkn own) date) unknown) (unknown) (no (unknown) (unknown) RLS (restless legs (units (unknown) date) syndrome) unknown) (unknown) (no (unknown) (unknown) Respiratory Rate 11 (unit s (unknown) date) L unknown) (unknown) (no (unknown) (unknown) Respiratory Rate 12 (unit s (unknown) date) unknown) (unknown) (no (unknown) (unknown) Respiratory Rate 13 (unit s (unknown) date) unknown) (unknown) (no (unknown) (unknown) Respiratory Rate 14 (unit s (unknown) date) unknown) (unknown) (no (unknown) (unknown) Respiratory Rate 16 (unit s (unknown) date) unknown) (unknown) (no (unknown) (unknown) Respiratory Rate 18 (unit s (unknown) date) 19 unknown) (unknown) (no (unknown) (unknown) Respiratory Rate 20 (unit s (unknown) date) unknown) (unknown) (no (unknown) (unknown) Respiratory Rate 24 (unit s (unknown) date) unknown) (unknown) (no (unknown) (unknown) Respiratory Rate (units (unknown) date) unknown) (unknown) (no (unknown) (unknown) Review of Systems (units (unknown) date) unknown) (unknown) (no (unknown) (unknown) SARS-CoV-2 (PCR) (units (unknown) date) Negative unknown) (unknown) (no (unknown) (unknown) SARS-CoV-2 (PCR) (units (unknown) date) unknown) (unknown) (no (unknown) (unknown) Safety + (units (unkno wn) date) Behavioral: unknown) (unknown) (no (unknown) (unknown) Signed (units (unkno wn) date) By:<Electronically unknown) signed by Daniel Hector MD> (unknown) (no (unknown) (unknown) Smoking Status (units (unknown) date) Current every day unknown) smoker (unknown) (no (unknown) (unknown) Social History: (units (unknown) date) unknown) (unknown) (no (unknown) (unknown) Sodium 138 (units (unk nown) date) unknown) (unknown) (no (unknown) (unknown) Sodium (units (unkno wn) date) unknown) (unknown) (no (unknown) (unknown) Spinal stenosis of (units (unknown) date) lumbar region with unknown) neurogenic claudication (unknown) (no (unknown) (unknown) Spondylolisthesis (units (unknown) date) of lumbar region unknown) (unknown) (no (unknown) (unknown) Stenosis of artery (units (unknown) date) unknown) (unknown) (no (unknown) (unknown) Substance Use Type (units (unknown) date) does not use unknown) (unknown) (no (unknown) (unknown) Surgical History (units (unknown) date) (Reviewed 09/09/22 @ unknown) 20:49 by Daniel Hector MD) (unknown) (no (unknown) (unknown) Temperature 98.1 F (units (unknown) date) unknown) (unknown) (no (unknown) (unknown) Temperature (units (un known) date) unknown) (unknown) (no (unknown) (unknown) Threatened By a (units (unknown) date) Person unknown) (unknown) (no (unknown) (unknown) Time Spent With (units (unknown) date) Patient unknown) (unknown) (no (unknown) (unknown) Tobacco + Substance (unit s (unknown) date) use: unknown) (unknown) (no (unknown) (unknown) Tobacco type (units (u nknown) date) cigarettes unknown) (unknown) (no (unknown) (unknown) Total Bilirubin 0.5 (unit s (unknown) date) unknown) (unknown) (no (unknown) (unknown) Total Bilirubin (units (unknown) date) unknown) (unknown) (no (unknown) (unknown) Total Creatine (units (unknown) date) Kinase 163 149 unknown) (unknown) (no (unknown) (unknown) Total Creatine (units (unknown) date) Kinase unknown) (unknown) (no (unknown) (unknown) Total Protein 8.1 (units (unknown) date) unknown) (unknown) (no (unknown) (unknown) Total Protein (units ( unknown) date) unknown) (unknown) (no (unknown) (unknown) Troponin I < 0.012 (units (unknown) date) < 0.012 unknown) (unknown) (no (unknown) (unknown) Troponin I (units (unk nown) date) unknown) (unknown) (no (unknown) (unknown) Vital Signs (units (un known) date) unknown) (unknown) (no (unknown) (unknown) Vitamin D (units (unkn own) date) deficiency unknown) (unknown) (no (unknown) (unknown) WBC 8.4 (units (unkno wn) date) unknown) (unknown) (no (unknown) (unknown) WBC (units (unkno wn) date) unknown) (unknown) (no (unknown) (unknown) [Embedded Image Not (unit s (unknown) date) Available] unknown) (unknown) (no (unknown) (unknown) alcohol intake (units (unknown) date) frequency a few unknown) times a month (unknown) (no (unknown) (unknown) alcohol intake (units (unknown) date) never unknown) (unknown) (no (unknown) (unknown) alprazolam 0.5 mg (units (unknown) date) tablet 0.5 mg PO unknown) BEDTIME PRN sleep #14 05/20/22 09/09/22 Rx (unknown) (no (unknown) (unknown) and xray. (units (unkn own) date) unknown) (unknown) (no (unknown) (unknown) arm. Today he had (units (unknown) date) let sided chest pain unknown) that is somewhat different than his (unknown) (no (unknown) (unknown) aspirin 81 mg (units ( unknown) date) tablet,delayed 81 mg unknown) PO DAILY 04/11/22 09/09/22 History (unknown) (no (unknown) (unknown) atorvastatin 40 mg (units (unknown) date) tablet 40 mg PO unknown) BEDTIME #90 tabs 04/11/22 09/09/22 Rx (unknown) (no (unknown) (unknown) bupropion HCl 150 (units (unknown) date) mg 24 hr tablet, 150 unknown) mg PO BID #60 tabs 05/20/22 09/09/22 Rx (unknown) (no (unknown) (unknown) cervical (units (unkno wn) date) radiculopathy. He unknown) has developed pain that radiates down the entire left (unknown) (no (unknown) (unknown) droperidol (units (unk nown) date) [DROPERIDOL] Allergy unknown) Mild 'COGENIC Verified 07/12/22 14:01 (unknown) (no (unknown) (unknown) extended release (units (unknown) date) unknown) (unknown) (no (unknown) (unknown) few months ago for (units (unknown) date) similar pain and had unknown) an inconclusive exercise stress test and (unknown) (no (unknown) (unknown) gabapentin 600 mg (units (unknown) date) tablet 600 mg PO TID unknown) #270 tabs 05/20/22 09/09/22 Rx (unknown) (no (unknown) (unknown) herbals, (units (unkno wn) date) cannabis/cannabidiol unknown) products, and vitamin/mineral/diet sue (unknown) (no (unknown) (unknown) household members (units (unknown) date) family unknown) (unknown) (no (unknown) (unknown) is pending a (units (u nknown) date) nuclear stress test. unknown) He has stated his pain is constant since this (unknown) (no (unknown) (unknown) lidocaine 5 % (units ( unknown) date) topical patch 2 unknown) patch topical DAILY #30 ea 07/12/22 Rx (unknown) (no (unknown) (unknown) medications (units (un known) date) unknown) (unknown) (no (unknown) (unknown) metoprolol tartrate (unit s (unknown) date) 25 mg tablet 25 mg unknown) PO BID #180 tabs 04/09/22 09/09/22 Rx (unknown) (no (unknown) (unknown) mg tablet (units (unkn own) date) (Percocet) unknown) (unknown) (no (unknown) (unknown) morning, nothing (units (unknown) date) has relieved it unknown) aside from pain medication he received in the (unknown) (no (unknown) (unknown) normal neck and arm (unit s (unknown) date) pain. No shortness unknown) of breath. Of note he does have known (unknown) (no (unknown) (unknown) not large enough to (unit s (unknown) date) be intervened upon. unknown) He is taking aspirin. He was admitted a (unknown) (no (unknown) (unknown) nurse. I have (units ( unknown) date) discussed the plan unknown) with the patient. I have reviewed labs and EKG (unknown) (no (unknown) (unknown) oxycodone-acetaminop (unit s (unknown) date) hen 5 mg-325 2 tab unknown) PO Q8H PRN pain 09/09/22 09/09/22 History (unknown) (no (unknown) (unknown) patient?s current (units (unknown) date) medications. [If unknown) Yes, STOP here]: Yes (unknown) (no (unknown) (unknown) presented to the (units (unknown) date) hospital chest unknown) painn. He has a long history of neck pain due to (unknown) (no (unknown) (unknown) release (units (unkno wn) date) unknown) (unknown) (no (unknown) (unknown) sats 98% on room (units (unknown) date) air, blood pressure unknown) 170s/90s. Labs notable for WBC 8.4, hgb (unknown) (no (unknown) (unknown) sertraline 50 mg (units (unknown) date) tablet 50 mg PO unknown) DAILY #90 tabs 04/09/22 05/20/22 Rx (unknown) (no (unknown) (unknown) sinus tachcyardia. (units (unknown) date) He was admitted for unknown) further treatment. (unknown) (no (unknown) (unknown) tabs (units (unkno wn) date) unknown) (unknown) (no (unknown) (unknown) today; this time is (unit s (unknown) date) exclusive of unknown) procedural time. Result panel 630 (unknown) (no date) (unknown) (unknown) Not Detected (units ( unknown) unknown) Result panel 631 (unknown) (no date) (unknown) (unknown) 0 /ul (unkn own) (unknown) (no date) (unknown) (unknown) 0.4 % (unkn own) (unknown) (no date) (unknown) (unknown) 13.2 % (unkn own) (unknown) (no date) (unknown) (unknown) 14.2 g/dl (unkn own) (unknown) (no date) (unknown) (unknown) 1800 /ul (unkn own) (unknown) (no date) (unknown) (unknown) 214 x10 3/ul (unkn own) (unknown) (no date) (unknown) (unknown) 24.9 % (unkn own) (unknown) (no date) (unknown) (unknown) 30.1 pg (unkn own) (unknown) (no date) (unknown) (unknown) 300 /ul (unkn own) (unknown) (no date) (unknown) (unknown) 32.8 % (unkn own) (unknown) (no date) (unknown) (unknown) 4.71 x10 6/ul (unkn own) (unknown) (no date) (unknown) (unknown) 4.8 % (unkn own) (unknown) (no date) (unknown) (unknown) 43.2 % (unkn own) (unknown) (no date) (unknown) (unknown) 4400 /ul (unkn own) (unknown) (no date) (unknown) (unknown) 60.8 % (unkn own) (unknown) (no date) (unknown) (unknown) 7.2 x10 3/ul (unkn own) (unknown) (no date) (unknown) (unknown) 700 /ul (unkn own) (unknown) (no date) (unknown) (unknown) 9.1 % (unkn own) (unknown) (no date) (unknown) (unknown) 91.7 fl (unkn own) Result panel 632 (unknown) (no date) (unknown) (unknown) > 60 ml/min (unkn own) (unknown) (no date) (unknown) (unknown) > 60 ml/min (unkn own) (unknown) (no date) (unknown) (unknown) 0.86 mg/dl (unkn own) (unknown) (no date) (unknown) (unknown) 102 mmol/l (unkn own) (unknown) (no date) (unknown) (unknown) 109 mg/dl (unkn own) (unknown) (no date) (unknown) (unknown) 109 mg/dl (unkn own) (unknown) (no date) (unknown) (unknown) 12 mg/dl (unkn own) (unknown) (no date) (unknown) (unknown) 138 mmol/l (unkn own) (unknown) (no date) (unknown) (unknown) 14.0 (units unknown) (unknown) (unknown) (no date) (unknown) (unknown) 29 mmol/l (unkn own) (unknown) (no date) (unknown) (unknown) 3.6 mmol/l (unkn own) (unknown) (no date) (unknown) (unknown) 9.4 mg/dl (unkn own) Result panel 633 (unknown) (no date) (unknown) (unknown) > 60 ml/min (unkn own) (unknown) (no date) (unknown) (unknown) > 60 ml/min (unkn own) (unknown) (no date) (unknown) (unknown) < 0.012 ng/ml (unkn own) (unknown) (no date) (unknown) (unknown) < 0.012 ng/ml (unkn own) (unknown) (no date) (unknown) (unknown) 0.86 mg/dl (unkn own) (unknown) (no date) (unknown) (unknown) 102 mmol/l (unkn own) (unknown) (no date) (unknown) (unknown) 109 mg/dl (unkn own) (unknown) (no date) (unknown) (unknown) 109 mg/dl (unkn own) (unknown) (no date) (unknown) (unknown) 12 mg/dl (unkn own) (unknown) (no date) (unknown) (unknown) 138 mmol/l (unkn own) (unknown) (no date) (unknown) (unknown) 14.0 (units (unkn own) unknown) (unknown) (no date) (unknown) (unknown) 29 mmol/l (unkn own) (unknown) (no date) (unknown) (unknown) 3.6 mmol/l (unkn own) (unknown) (no date) (unknown) (unknown) 9.4 mg/dl (unkn own) Result panel 634 (unknown) (no (unknown) (unknown) (no value) (units (unk nown) date) unknown) (unknown) (no (unknown) (unknown) (past 8 hours): (units (unknown) date) unknown) (unknown) (no (unknown) (unknown) 0.5 mg PO BEDTIME (units (unknown) date) PRN (Reason: sleep) unknown) Qty: 14 0RF (unknown) (no (unknown) (unknown) 09/09/22 09/09/22 (units (unknown) date) 09/09/22 unknown) (unknown) (no (unknown) (unknown) 09/09/22 09/10/22 (units (unknown) date) 09/10/22 unknown) (unknown) (no (unknown) (unknown) 09/09/22 19:58 (units (unknown) date) unknown) (unknown) (no (unknown) (unknown) 09/10/22 04:04 (units (unknown) date) unknown) (unknown) (no (unknown) (unknown) 09/10/22 (units (unkno wn) date) unknown) (unknown) (no (unknown) (unknown) 08:00 09/10/22 (units (unknown) date) unknown) (unknown) (no (unknown) (unknown) 08:10 09/10/22 (units (unknown) date) unknown) (unknown) (no (unknown) (unknown) 09:00 (units (unkno wn) date) unknown) (unknown) (no (unknown) (unknown) 1. Chest pain, (units (unknown) date) improved unknown) (unknown) (no (unknown) (unknown) 12:00 (units (unkno wn) date) unknown) (unknown) (no (unknown) (unknown) 14:10 16:10 16:10 (units (unknown) date) unknown) (unknown) (no (unknown) (unknown) 15.3, plts 230. (units (unknown) date) Creatinine 0.77. unknown) D-dimer 220. Troponin negative x2. EKG with (unknown) (no (unknown) (unknown) 150 mg PO BID Qty: (units (unknown) date) 60 0RF unknown) (unknown) (no (unknown) (unknown) 16:10 16:30 19:05 (units (unknown) date) unknown) (unknown) (no (unknown) (unknown) 2 patch topical (units (unknown) date) DAILY Qty: 30 0RF unknown) (unknown) (no (unknown) (unknown) 2 tab PO Q8H PRN (units (unknown) date) (Reason: pain) unknown) (unknown) (no (unknown) (unknown) 2. Cervical (units (un known) date) radiculopathy unknown) (unknown) (no (unknown) (unknown) 21:31 04:04 04:04 (units (unknown) date) unknown) (unknown) (no (unknown) (unknown) 25 mg PO BID Qty: (units (unknown) date) 180 3RF unknown) (unknown) (no (unknown) (unknown) 3. Hypertension, (units (unknown) date) controlled unknown) (unknown) (no (unknown) (unknown) 40 mg PO BEDTIME (units (unknown) date) Qty: 90 3RF unknown) (unknown) (no (unknown) (unknown) 50 mg PO DAILY Qty: (unit s (unknown) date) 90 3RF unknown) (unknown) (no (unknown) (unknown) 600 mg PO TID Qty: (units (unknown) date) 270 3RF unknown) (unknown) (no (unknown) (unknown) 81 mg PO DAILY (units (unknown) date) unknown) (unknown) (no (unknown) (unknown) : [id number] (units (u nknown) date) unknown) (unknown) (no (unknown) (unknown) ABD: soft, (units (unk nown) date) nontender, unknown) nondistended, no organomegaly (unknown) (no (unknown) (unknown) ADD (attention (units (unknown) date) deficit disorder) unknown) (unknown) (no (unknown) (unknown) ALT 34 (units (unkno wn) date) unknown) (unknown) (no (unknown) (unknown) ALT (units (unkno wn) date) unknown) (unknown) (no (unknown) (unknown) APTT 32 (units (unkno wn) date) unknown) (unknown) (no (unknown) (unknown) APTT (units (unkno wn) date) unknown) (unknown) (no (unknown) (unknown) AST 37 (units (unkno wn) date) unknown) (unknown) (no (unknown) (unknown) AST (units (unkno wn) date) unknown) (unknown) (no (unknown) (unknown) [facility] MD (units (unknown) date) [Primary Care unknown) Provider] (unknown) (no (unknown) (unknown) Age/Sex: 52 / M (units (unknown) date) unknown) (unknown) (no (unknown) (unknown) Albumin 4.7 (units (un known) date) unknown) (unknown) (no (unknown) (unknown) Albumin (units (unkno wn) date) unknown) (unknown) (no (unknown) (unknown) Albumin/Globulin (units (unknown) date) Ratio 1.4 unknown) (unknown) (no (unknown) (unknown) Albumin/Globulin (units (unknown) date) Ratio unknown) (unknown) (no (unknown) (unknown) Alkaline (units (unkno wn) date) Phosphatase 60 unknown) (unknown) (no (unknown) (unknown) Alkaline (units (unkno wn) date) Phosphatase unknown) (unknown) (no (unknown) (unknown) Asthma (units (unkno wn) date) unknown) (unknown) (no (unknown) (unknown) Attending Provider: (unit s (unknown) date) Daniel Hector unknown) (unknown) (no (unknown) (unknown) BUN 12 (units (unkno wn) date) unknown) (unknown) (no (unknown) (unknown) BUN (units (unkno wn) date) unknown) (unknown) (no (unknown) (unknown) BUN/Creatinine (units (unknown) date) Ratio 14.0 unknown) (unknown) (no (unknown) (unknown) BUN/Creatinine (units (unknown) date) Ratio 15.6 unknown) (unknown) (no (unknown) (unknown) BUN/Creatinine (units (unknown) date) Ratio unknown) (unknown) (no (unknown) (unknown) Baso # (Auto) 0 (units (unknown) date) unknown) (unknown) (no (unknown) (unknown) Baso # (Auto) 100 (units (unknown) date) unknown) (unknown) (no (unknown) (unknown) Baso # (Auto) (units ( unknown) date) unknown) (unknown) (no (unknown) (unknown) Baso % (Auto) 0.4 (units (unknown) date) unknown) (unknown) (no (unknown) (unknown) Baso % (Auto) 0.9 (units (unknown) date) unknown) (unknown) (no (unknown) (unknown) Baso % (Auto) (units ( unknown) date) unknown) (unknown) (no (unknown) (unknown) Blood Pressure (units (unknown) date) 120/59 L unknown) (unknown) (no (unknown) (unknown) Blood Pressure (units (unknown) date) 131/69 unknown) (unknown) (no (unknown) (unknown) CAD. His last cath (units (unknown) date) was a few years ago unknown) and noted a lesion in one artery that was (unknown) (no (unknown) (unknown) CK-MB (CK-2) 0.77 (units (unknown) date) 0.69 unknown) (unknown) (no (unknown) (unknown) CK-MB (CK-2) Rel (units (unknown) date) Index 0.5 L 0.5 L unknown) (unknown) (no (unknown) (unknown) CK-MB (CK-2) Rel (units (unknown) date) Index unknown) (unknown) (no (unknown) (unknown) CK-MB (CK-2) (units (u nknown) date) unknown) (unknown) (no (unknown) (unknown) CV: regular rate (units (unknown) date) and rhythm, no unknown) murmurs (unknown) (no (unknown) (unknown) Calcium 9.4 (units (un known) date) unknown) (unknown) (no (unknown) (unknown) Calcium 9.5 (units (un known) date) unknown) (unknown) (no (unknown) (unknown) Calcium (units (unkno wn) date) unknown) (unknown) (no (unknown) (unknown) Carbon Dioxide 29 (units (unknown) date) unknown) (unknown) (no (unknown) (unknown) Carbon Dioxide (units (unknown) date) unknown) (unknown) (no (unknown) (unknown) Cervical (units (unkno wn) date) radiculopathy due to unknown) osteoarthritis of spine (unknown) (no (unknown) (unknown) Chief complaint: (units (unknown) date) neck and chest pain unknown) (unknown) (no (unknown) (unknown) Chloride 102 (units (u nknown) date) unknown) (unknown) (no (unknown) (unknown) Chloride (units (unkno wn) date) unknown) (unknown) (no (unknown) (unknown) Coronary artery (units (unknown) date) disease unknown) (unknown) (no (unknown) (unknown) Creatinine 0.77 (units (unknown) date) unknown) (unknown) (no (unknown) (unknown) Creatinine 0.86 (units (unknown) date) unknown) (unknown) (no (unknown) (unknown) Creatinine (units (unk nown) date) unknown) (unknown) (no (unknown) (unknown) D-Dimer 220 (units (un known) date) unknown) (unknown) (no (unknown) (unknown) D-Dimer (units (unkno wn) date) unknown) (unknown) (no (unknown) (unknown) : 1970 (units (unknown) date) Acct:[id number] unknown) (unknown) (no (unknown) (unknown) Date Patient Seen: (units (unknown) date) 09/10/22 unknown) (unknown) (no (unknown) (unknown) Date of Service: (units (unknown) date) 09/09/22 unknown) (unknown) (no (unknown) (unknown) Date of admission: (units (unknown) date) unknown) (unknown) (no (unknown) (unknown) Depression (units (unk nown) date) unknown) (unknown) (no (unknown) (unknown) Discharge Data (units (unknown) date) unknown) (unknown) (no (unknown) (unknown) Discharge Date: (units (unknown) date) 09/10/22 unknown) (unknown) (no (unknown) (unknown) Discharge (units (unkn own) date) Diagnosis: unknown) (unknown) (no (unknown) (unknown) Discharge Plan (units (unknown) date) unknown) (unknown) (no (unknown) (unknown) Discharge Providers (unit s (unknown) date) unknown) (unknown) (no (unknown) (unknown) Discharge Summary (units (unknown) date) unknown) (unknown) (no (unknown) (unknown) Discharge orders + (units (unknown) date) Medications unknown) (unknown) (no (unknown) (unknown) Discharge provider: (unit s (unknown) date) unknown) (unknown) (no (unknown) (unknown) ED. (units (unkno wn) date) unknown) (unknown) (no (unknown) (unknown) EXT: warm and well (units (unknown) date) perfused with no unknown) edema (unknown) (no (unknown) (unknown) Eos # (Auto) 200 (units (unknown) date) unknown) (unknown) (no (unknown) (unknown) Eos # (Auto) 300 (units (unknown) date) unknown) (unknown) (no (unknown) (unknown) Eos # (Auto) (units (u nknown) date) unknown) (unknown) (no (unknown) (unknown) Eos % (Auto) 2.7 (units (unknown) date) unknown) (unknown) (no (unknown) (unknown) Eos % (Auto) 4.8 H (units (unknown) date) unknown) (unknown) (no (unknown) (unknown) Eos % (Auto) (units (u nknown) date) unknown) (unknown) (no (unknown) (unknown) Essential (units (unkn own) date) hypertension unknown) (unknown) (no (unknown) (unknown) Estimated GFR > 60 (units (unknown) date) unknown) (unknown) (no (unknown) (unknown) Estimated GFR (units ( unknown) date) unknown) (unknown) (no (unknown) (unknown) Exam Narrative: (units (unknown) date) unknown) (unknown) (no (unknown) (unknown) Exam (units (unkno wn) date) unknown) (unknown) (no (unknown) (unknown) Family History (units (unknown) date) (Reviewed 09/09/22 @ unknown) 20:49 by Daniel Hector MD) (unknown) (no (unknown) (unknown) Father Hypertension (unit s (unknown) date) unknown) (unknown) (no (unknown) (unknown) Follow (units (unkno wn) date) up/Referrals: unknown) (unknown) (no (unknown) (unknown) GEN: no acute (units ( unknown) date) distress unknown) (unknown) (no (unknown) (unknown) Generalized anxiety (unit s (unknown) date) disorder with panic unknown) attacks (unknown) (no (unknown) (unknown) Globulin 3.4 (units (u nknown) date) unknown) (unknown) (no (unknown) (unknown) Globulin (units (unkno wn) date) unknown) (unknown) (no (unknown) (unknown) Glucose 109 H (units ( unknown) date) unknown) (unknown) (no (unknown) (unknown) Glucose 190 H (units ( unknown) date) unknown) (unknown) (no (unknown) (unknown) Glucose (units (unkno wn) date) unknown) (unknown) (no (unknown) (unknown) HEENT: moist mucous (unit s (unknown) date) membranes, PERRL unknown) (unknown) (no (unknown) (unknown) Hct 43.2 (units (unkno wn) date) unknown) (unknown) (no (unknown) (unknown) Hct 46.0 (units (unkno wn) date) unknown) (unknown) (no (unknown) (unknown) Hct (units (unkno wn) date) unknown) (unknown) (no (unknown) (unknown) Herniated (units (unkn own) date) intervertebral disc unknown) of lumbar spine (unknown) (no (unknown) (unknown) Hgb 14.2 (units (unkno wn) date) unknown) (unknown) (no (unknown) (unknown) Hgb 15.3 (units (unkno wn) date) unknown) (unknown) (no (unknown) (unknown) Hgb (units (unkno wn) date) unknown) (unknown) (no (unknown) (unknown) History of Present (units (unknown) date) Illness unknown) (unknown) (no (unknown) (unknown) Hospital Course (units (unknown) date) unknown) (unknown) (no (unknown) (unknown) Hx of cervical (units (unknown) date) discectomy (-2013) unknown) (unknown) (no (unknown) (unknown) Hyperlipidemia (units (unknown) date) unknown) (unknown) (no (unknown) (unknown) Hypertension (units (u nknown) date) unknown) (unknown) (no (unknown) (unknown) INR 1.0 (units (unkno wn) date) unknown) (unknown) (no (unknown) (unknown) INR (units (unkno wn) date) unknown) (unknown) (no (unknown) (unknown) In the ED workup (units (unknown) date) was done, vitals unknown) notable for afebrile, heart rate in 110s, o2 (unknown) (no (unknown) (unknown) [facility] (units (unknown) date) [address] unknown) [place] [id number] (unknown) (no (unknown) (unknown) [facility] MD (units (unknown) date) unknown) (unknown) (no (unknown) (unknown) Laboratory Results (units (unknown) date) - last 24 hr unknown) (unknown) (no (unknown) (unknown) Labs (units (unkno wn) date) unknown) (unknown) (no (unknown) (unknown) Labs: (units (unkno wn) date) unknown) (unknown) (no (unknown) (unknown) Lipase 51 (units (unkn own) date) unknown) (unknown) (no (unknown) (unknown) Lipase (units (unkno wn) date) unknown) (unknown) (no (unknown) (unknown) Lymph # (Auto) 1300 (unit s (unknown) date) unknown) (unknown) (no (unknown) (unknown) Lymph # (Auto) 1800 (unit s (unknown) date) unknown) (unknown) (no (unknown) (unknown) Lymph # (Auto) (units (unknown) date) unknown) (unknown) (no (unknown) (unknown) Lymph % (Auto) 14.9 (unit s (unknown) date) L unknown) (unknown) (no (unknown) (unknown) Lymph % (Auto) 24.9 (unit s (unknown) date) L unknown) (unknown) (no (unknown) (unknown) Lymph % (Auto) (units (unknown) date) unknown) (unknown) (no (unknown) (unknown) MCH 30.1 (units (unkno wn) date) unknown) (unknown) (no (unknown) (unknown) MCH 30.3 (units (unkno wn) date) unknown) (unknown) (no (unknown) (unknown) MCH (units (unkno wn) date) unknown) (unknown) (no (unknown) (unknown) MCHC 32.8 (units (unkn own) date) unknown) (unknown) (no (unknown) (unknown) MCHC 33.2 (units (unkn own) date) unknown) (unknown) (no (unknown) (unknown) MCHC (units (unkno wn) date) unknown) (unknown) (no (unknown) (unknown) MCV 91.2 (units (unkno wn) date) unknown) (unknown) (no (unknown) (unknown) MCV 91.7 (units (unkno wn) date) unknown) (unknown) (no (unknown) (unknown) MCV (units (unkno wn) date) unknown) (unknown) (no (unknown) (unknown) Magnesium 2.0 (units ( unknown) date) unknown) (unknown) (no (unknown) (unknown) Magnesium (units (unkn own) date) unknown) (unknown) (no (unknown) (unknown) Medical History (units (unknown) date) (Reviewed 09/09/22 @ unknown) 20:49 by Daniel Hector MD) (unknown) (no (unknown) (unknown) [place]osh # (Auto) 500 (units (unknown) date) unknown) (unknown) (no (unknown) (unknown) [place] # (Auto) 700 (units (unknown) date) unknown) (unknown) (no (unknown) (unknown) [place] # (Auto) (units ( unknown) date) unknown) (unknown) (no (unknown) (unknown) [place] % (Auto) 5.5 (units (unknown) date) unknown) (unknown) (no (unknown) (unknown) [place] % (Auto) 9.1 (units (unknown) date) unknown) (unknown) (no (unknown) (unknown) [place]osh % (Auto) (units ( unknown) date) unknown) (unknown) (no (unknown) (unknown) Mother Diabetes (units (unknown) date) mellitus unknown) (unknown) (no (unknown) (unknown) Mr. Alonso is a 52M (unit s (unknown) date) with CAD, cervical unknown) radiculopathy, opiate addiction, HTN who (unknown) (no (unknown) (unknown) NECK: trachea (units ( unknown) date) midline, no JVD unknown) (unknown) (no (unknown) (unknown) NEURO: awake, (units ( unknown) date) alert, oriented, no unknown) focal deficits (unknown) (no (unknown) (unknown) Narrative (units (unkn own) date) unknown) (unknown) (no (unknown) (unknown) Narrative: (units (unk nown) date) unknown) (unknown) (no (unknown) (unknown) Nasal Screen MRSA (units (unknown) date) (PCR) Not detected unknown) (unknown) (no (unknown) (unknown) Nasal Screen MRSA (units (unknown) date) (PCR) unknown) (unknown) (no (unknown) (unknown) Neut # (Auto) 4400 (units (unknown) date) unknown) (unknown) (no (unknown) (unknown) Neut # (Auto) 6400 (units (unknown) date) unknown) (unknown) (no (unknown) (unknown) Neut # (Auto) (units ( unknown) date) unknown) (unknown) (no (unknown) (unknown) Neut % (Auto) 60.8 (units (unknown) date) unknown) (unknown) (no (unknown) (unknown) Neut % (Auto) 76.0 (units (unknown) date) H unknown) (unknown) (no (unknown) (unknown) Neut % (Auto) (units ( unknown) date) unknown) (unknown) (no (unknown) (unknown) No Action (units (unkn own) date) unknown) (unknown) (no (unknown) (unknown) Objective (units (unkn own) date) unknown) (unknown) (no (unknown) (unknown) Opiate addiction (units (unknown) date) unknown) (unknown) (no (unknown) (unknown) Oxygen Delivery (units (unknown) date) Method Room Air Room unknown) Air (unknown) (no (unknown) (unknown) Oxygen Delivery (units (unknown) date) Method Room Air unknown) (unknown) (no (unknown) (unknown) Oxygen Delivery (units (unknown) date) Method unknown) (unknown) (no (unknown) (unknown) Oxygen Flow Rate 0 (units (unknown) date) unknown) (unknown) (no (unknown) (unknown) PFSH (units (unkno wn) date) unknown) (unknown) (no (unknown) (unknown) PT 11.1 (units (unkno wn) date) unknown) (unknown) (no (unknown) (unknown) PT (units (unkno wn) date) unknown) (unknown) (no (unknown) (unknown) PULM: clear (units (un known) date) bilaterally unknown) 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 unknown) (unknown) (no (unknown) (unknown) Patient (units (unkno wn) date) Disposition: Home unknown) (unknown) (no (unknown) (unknown) Patient: (units (unknown) date) II,[place] L MR# unknown) (unknown) (no (unknown) (unknown) Per admitting (units ( unknown) date) provider, unknown) (unknown) (no (unknown) (unknown) Peripheral (units (unk nown) date) neuropathy unknown) (unknown) (no (unknown) (unknown) Plt Count 214 (units ( unknown) date) unknown) (unknown) (no (unknown) (unknown) Plt Count 230 (units ( unknown) date) unknown) (unknown) (no (unknown) (unknown) Plt Count (units (unkn own) date) unknown) (unknown) (no (unknown) (unknown) Potassium 3.6 (units ( unknown) date) unknown) (unknown) (no (unknown) (unknown) Potassium 4.2 (units ( unknown) date) unknown) (unknown) (no (unknown) (unknown) Potassium (units (unkn own) date) unknown) (unknown) (no (unknown) (unknown) Prescriptions: (units (unknown) date) unknown) (unknown) (no (unknown) (unknown) Primary Care (units (u nknown) date) Provider: unknown) [facility] (unknown) (no (unknown) (unknown) Primary care (units (u nknown) date) physician: unknown) (unknown) (no (unknown) (unknown) Provider (units (unkno wn) date) unknown) (unknown) (no (unknown) (unknown) Provider: (units (unkn own) date) Varun Burnett D.O. unknown) (unknown) (no (unknown) (unknown) Pulse Oximetry 94 (units (unknown) date) unknown) (unknown) (no (unknown) (unknown) Pulse Oximetry 95 (units (unknown) date) 96 unknown) (unknown) (no (unknown) (unknown) Pulse Rate 75 (units ( unknown) date) unknown) (unknown) (no (unknown) (unknown) Pulse Rate 77 (units ( unknown) date) unknown) (unknown) (no (unknown) (unknown) RBC 4.71 (units (unkno wn) date) unknown) (unknown) (no (unknown) (unknown) RBC 5.04 (units (unkno wn) date) unknown) (unknown) (no (unknown) (unknown) RBC (units (unkno wn) date) unknown) (unknown) (no (unknown) (unknown) RDW 13.0 (units (unkno wn) date) unknown) (unknown) (no (unknown) (unknown) RDW 13.2 (units (unkno wn) date) unknown) (unknown) (no (unknown) (unknown) RDW (units (unkno wn) date) unknown) (unknown) (no (unknown) (unknown) RLS (restless legs (units (unknown) date) syndrome) unknown) (unknown) (no (unknown) (unknown) Respiratory Rate 13 (unit s (unknown) date) unknown) (unknown) (no (unknown) (unknown) Respiratory Rate 18 (unit s (unknown) date) unknown) (unknown) (no (unknown) (unknown) Varun Burnett DO (units (unknown) date) unknown) (unknown) (no (unknown) (unknown) Rx Instructions: (units (unknown) date) unknown) (unknown) (no (unknown) (unknown) SARS-CoV-2 (PCR) (units (unknown) date) Negative unknown) (unknown) (no (unknown) (unknown) SARS-CoV-2 (PCR) (units (unknown) date) unknown) (unknown) (no (unknown) (unknown) Signed By: (units (unk nown) date) unknown) (unknown) (no (unknown) (unknown) Smoking Status: (units (unknown) date) Current every day unknown) smoker (unknown) (no (unknown) (unknown) Social History (units (unknown) date) (Reviewed 09/09/22 @ unknown) 16:59 by Flaco Brock MD) (unknown) (no (unknown) (unknown) Sodium 138 (units (unk nown) date) unknown) (unknown) (no (unknown) (unknown) Sodium (units (unkno wn) date) unknown) (unknown) (no (unknown) (unknown) Spinal stenosis of (units (unknown) date) lumbar region with unknown) neurogenic claudication (unknown) (no (unknown) (unknown) Spondylolisthesis (units (unknown) date) of lumbar region unknown) (unknown) (no (unknown) (unknown) Stand Alone Forms: (units (unknown) date) Patient Portal/API, unknown) Stroke Signs + Symptoms (unknown) (no (unknown) (unknown) Stenosis of artery (units (unknown) date) unknown) (unknown) (no (unknown) (unknown) Summary (units (unkno wn) date) unknown) (unknown) (no (unknown) (unknown) Surgical History (units (unknown) date) (Reviewed 09/09/22 @ unknown) 20:49 by Daniel Hector MD) (unknown) (no (unknown) (unknown) Temperature 97.3 F (units (unknown) date) L unknown) (unknown) (no (unknown) (unknown) Temperature 98.1 F (units (unknown) date) unknown) (unknown) (no (unknown) (unknown) Time Patient Seen: (units (unknown) date) 15:40 unknown) (unknown) (no (unknown) (unknown) Total Bilirubin 0.5 (unit s (unknown) date) unknown) (unknown) (no (unknown) (unknown) Total Bilirubin (units (unknown) date) unknown) (unknown) (no (unknown) (unknown) Total Creatine (units (unknown) date) Kinase 163 149 unknown) (unknown) (no (unknown) (unknown) Total Creatine (units (unknown) date) Kinase unknown) (unknown) (no (unknown) (unknown) Total Protein 8.1 (units (unknown) date) unknown) (unknown) (no (unknown) (unknown) Total Protein (units ( unknown) date) unknown) (unknown) (no (unknown) (unknown) Troponin I < 0.012 (units (unknown) date) < 0.012 unknown) (unknown) (no (unknown) (unknown) Troponin I < 0.012 (units (unknown) date) unknown) (unknown) (no (unknown) (unknown) Troponin I (units (unk nown) date) unknown) (unknown) (no (unknown) (unknown) Visit (units (unkno wn) date) Report/Discharge unknown) Packet (unknown) (no (unknown) (unknown) Vital Signs (units (un known) date) unknown) (unknown) (no (unknown) (unknown) Vitamin D (units (unkn own) date) deficiency unknown) (unknown) (no (unknown) (unknown) WBC 7.2 (units (unkno wn) date) unknown) (unknown) (no (unknown) (unknown) WBC 8.4 (units (unkno wn) date) unknown) (unknown) (no (unknown) (unknown) WBC (units (unkno wn) date) unknown) (unknown) (no (unknown) (unknown) [Embedded Image Not (unit s (unknown) date) Available] unknown) (unknown) (no (unknown) (unknown) alcohol intake: (units (unknown) date) never unknown) (unknown) (no (unknown) (unknown) alprazolam 0.5 mg (units (unknown) date) tablet unknown) (unknown) (no (unknown) (unknown) arm. Today he had (units (unknown) date) let sided chest pain unknown) that is somewhat different than his (unknown) (no (unknown) (unknown) aspirin 81 mg (units ( unknown) date) tablet,delayed unknown) release (DR/EC) (unknown) (no (unknown) (unknown) atorvastatin 40 mg (units (unknown) date) tablet unknown) (unknown) (no (unknown) (unknown) bupropion HCl 150 (units (unknown) date) mg tablet extended unknown) release 24 hr (unknown) (no (unknown) (unknown) cervical (units (unkno wn) date) radiculopathy. He unknown) has developed pain that radiates down the entire left (unknown) (no (unknown) (unknown) few months ago for (units (unknown) date) similar pain and had unknown) an inconclusive exercise stress test and (unknown) (no (unknown) (unknown) gabapentin 600 mg (units (unknown) date) tablet unknown) (unknown) (no (unknown) (unknown) household members: (units (unknown) date) family unknown) (unknown) (no (unknown) (unknown) is pending a (units (u nknown) date) nuclear stress test. unknown) He has stated his pain is constant since this (unknown) (no (unknown) (unknown) leave on most (units ( unknown) date) painful area for up unknown) to 12 hrs (unknown) (no (unknown) (unknown) lidocaine (units (unkn own) date) [Lidoderm] 5 % unknown) adhesive patch,medicated (unknown) (no (unknown) (unknown) metoprolol tartrate (unit s (unknown) date) 25 mg tablet unknown) (unknown) (no (unknown) (unknown) morning, nothing (units (unknown) date) has relieved it unknown) aside from pain medication he received in the (unknown) (no (unknown) (unknown) normal neck and arm (unit s (unknown) date) pain. No shortness unknown) of breath. Of note he does have known (unknown) (no (unknown) (unknown) not large enough to (unit s (unknown) date) be intervened upon. unknown) He is taking aspirin. He was admitted a (unknown) (no (unknown) (unknown) oxycodone-acetamino (unit s (unknown) date) phen [Percocet] unknown) 5-325 mg tablet (unknown) (no (unknown) (unknown) presented to the (units (unknown) date) hospital chest unknown) painn. He has a long history of neck pain due to (unknown) (no (unknown) (unknown) sats 98% on room (units (unknown) date) air, blood pressure unknown) 170s/90s. Labs notable for WBC 8.4, hgb (unknown) (no (unknown) (unknown) sertraline 50 mg (units (unknown) date) tablet unknown) (unknown) (no (unknown) (unknown) sinus tachcyardia. (units (unknown) date) He was admitted for unknown) further treatment. Result panel [id number] (unknown) (no (unknown) (unknown) (no value) (units (unk nown) date) unknown) (unknown) (no (unknown) (unknown) (past 8 hours): (units (unknown) date) unknown) (unknown) (no (unknown) (unknown) 0.5 mg PO BEDTIME (units (unknown) date) PRN (Reason: sleep) unknown) Qty: 14 0RF (unknown) (no (unknown) (unknown) 09/09/22 09/09/22 (units (unknown) date) 09/09/22 unknown) (unknown) (no (unknown) (unknown) 09/09/22 09/10/22 (units (unknown) date) 09/10/22 unknown) (unknown) (no (unknown) (unknown) 09/09/22 19:58 (units (unknown) date) unknown) (unknown) (no (unknown) (unknown) 09/10/22 04:04 (units (unknown) date) unknown) (unknown) (no (unknown) (unknown) 09/10/22 1553 (units ( unknown) date) unknown) (unknown) (no (unknown) (unknown) 09/10/22 (units (unkno wn) date) unknown) (unknown) (no (unknown) (unknown) 08:00 09/10/22 (units (unknown) date) unknown) (unknown) (no (unknown) (unknown) 08:10 09/10/22 (units (unknown) date) unknown) (unknown) (no (unknown) (unknown) 09:00 (units (unkno wn) date) unknown) (unknown) (no (unknown) (unknown) 1. Chest pain, (units (unknown) date) improved unknown) (unknown) (no (unknown) (unknown) 12:00 (units (unkno wn) date) unknown) (unknown) (no (unknown) (unknown) 14:10 16:10 16:10 (units (unknown) date) unknown) (unknown) (no (unknown) (unknown) 15.3, plts 230. (units (unknown) date) Creatinine 0.77. unknown) D-dimer 220. Troponin negative x2. EKG with (unknown) (no (unknown) (unknown) 150 mg PO BID Qty: (units (unknown) date) 60 0RF unknown) (unknown) (no (unknown) (unknown) 16:10 16:30 19:05 (units (unknown) date) unknown) (unknown) (no (unknown) (unknown) 2 patch topical (units (unknown) date) DAILY Qty: 30 0RF unknown) (unknown) (no (unknown) (unknown) 2 tab PO Q6H PRN (units (unknown) date) (Reason: pain) 7 unknown) Days Qty: 30 0RF (unknown) (no (unknown) (unknown) 2. Cervical (units (un known) date) radiculopathy unknown) (unknown) (no (unknown) (unknown) 20 mg PO DAILY 4 (units (unknown) date) Days Qty: 4 0RF unknown) (unknown) (no (unknown) (unknown) 21:31 04:04 04:04 (units (unknown) date) unknown) (unknown) (no (unknown) (unknown) 25 mg PO BID Qty: (units (unknown) date) 180 3RF unknown) (unknown) (no (unknown) (unknown) 3. Hypertension, (units (unknown) date) controlled unknown) (unknown) (no (unknown) (unknown) 4. CAD, chronic (units (unknown) date) unknown) (unknown) (no (unknown) (unknown) 40 mg PO BEDTIME (units (unknown) date) Qty: 90 3RF unknown) (unknown) (no (unknown) (unknown) 50 mg PO DAILY Qty: (unit s (unknown) date) 90 3RF unknown) (unknown) (no (unknown) (unknown) 600 mg PO TID Qty: (units (unknown) date) 270 3RF unknown) (unknown) (no (unknown) (unknown) 81 mg PO DAILY (units (unknown) date) unknown) (unknown) (no (unknown) (unknown) : [id number] (units (u nknown) date) unknown) (unknown) (no (unknown) (unknown) ABD: soft, (units (unk nown) date) nontender, unknown) nondistended, no organomegaly (unknown) (no (unknown) (unknown) ADD (attention (units (unknown) date) deficit disorder) unknown) (unknown) (no (unknown) (unknown) ALT 34 (units (unkno wn) date) unknown) (unknown) (no (unknown) (unknown) ALT (units (unkno wn) date) unknown) (unknown) (no (unknown) (unknown) APTT 32 (units (unkno wn) date) unknown) (unknown) (no (unknown) (unknown) APTT (units (unkno wn) date) unknown) (unknown) (no (unknown) (unknown) AST 37 (units (unkno wn) date) unknown) (unknown) (no (unknown) (unknown) AST (units (unkno wn) date) unknown) (unknown) (no (unknown) (unknown) [facility] MD (units (unknown) date) [Primary Care unknown) Provider] (unknown) (no (unknown) (unknown) Activity: As (units (u nknown) date) tolerated unknown) (unknown) (no (unknown) (unknown) Age/Sex: 52 / M (units (unknown) date) unknown) (unknown) (no (unknown) (unknown) Albumin 4.7 (units (un known) date) unknown) (unknown) (no (unknown) (unknown) Albumin (units (unkno wn) date) unknown) (unknown) (no (unknown) (unknown) Albumin/Globulin (units (unknown) date) Ratio 1.4 unknown) (unknown) (no (unknown) (unknown) Albumin/Globulin (units (unknown) date) Ratio unknown) (unknown) (no (unknown) (unknown) Alkaline (units (unkno wn) date) Phosphatase 60 unknown) (unknown) (no (unknown) (unknown) Alkaline (units (unkno wn) date) Phosphatase unknown) (unknown) (no (unknown) (unknown) Asthma (units (unkno wn) date) unknown) (unknown) (no (unknown) (unknown) Attending Provider: (unit s (unknown) date) Daniel Hector unknown) (unknown) (no (unknown) (unknown) BUN 12 (units (unkno wn) date) unknown) (unknown) (no (unknown) (unknown) BUN (units (unkno wn) date) unknown) (unknown) (no (unknown) (unknown) BUN/Creatinine (units (unknown) date) Ratio 14.0 unknown) (unknown) (no (unknown) (unknown) BUN/Creatinine (units (unknown) date) Ratio 15.6 unknown) (unknown) (no (unknown) (unknown) BUN/Creatinine (units (unknown) date) Ratio unknown) (unknown) (no (unknown) (unknown) Baso # (Auto) 0 (units (unknown) date) unknown) (unknown) (no (unknown) (unknown) Baso # (Auto) 100 (units (unknown) date) unknown) (unknown) (no (unknown) (unknown) Baso # (Auto) (units ( unknown) date) unknown) (unknown) (no (unknown) (unknown) Baso % (Auto) 0.4 (units (unknown) date) unknown) (unknown) (no (unknown) (unknown) Baso % (Auto) 0.9 (units (unknown) date) unknown) (unknown) (no (unknown) (unknown) Baso % (Auto) (units ( unknown) date) unknown) (unknown) (no (unknown) (unknown) Blood Pressure (units (unknown) date) 120/59 L unknown) (unknown) (no (unknown) (unknown) Blood Pressure (units (unknown) date) 131/69 unknown) (unknown) (no (unknown) (unknown) CAD. His last cath (units (unknown) date) was a few years ago unknown) and noted a lesion in one artery that was (unknown) (no (unknown) (unknown) CK-MB (CK-2) 0.77 (units (unknown) date) 0.69 unknown) (unknown) (no (unknown) (unknown) CK-MB (CK-2) Rel (units (unknown) date) Index 0.5 L 0.5 L unknown) (unknown) (no (unknown) (unknown) CK-MB (CK-2) Rel (units (unknown) date) Index unknown) (unknown) (no (unknown) (unknown) CK-MB (CK-2) (units (u nknown) date) unknown) (unknown) (no (unknown) (unknown) CV: regular rate (units (unknown) date) and rhythm, no unknown) murmurs (unknown) (no (unknown) (unknown) Calcium 9.4 (units (un known) date) unknown) (unknown) (no (unknown) (unknown) Calcium 9.5 (units (un known) date) unknown) (unknown) (no (unknown) (unknown) Calcium (units (unkno wn) date) unknown) (unknown) (no (unknown) (unknown) Carbon Dioxide 29 (units (unknown) date) unknown) (unknown) (no (unknown) (unknown) Carbon Dioxide (units (unknown) date) unknown) (unknown) (no (unknown) (unknown) Cervical (units (unkno wn) date) radiculopathy due to unknown) osteoarthritis of spine (unknown) (no (unknown) (unknown) Changed (units (unkno wn) date) unknown) (unknown) (no (unknown) (unknown) Chief complaint: (units (unknown) date) neck and chest pain unknown) (unknown) (no (unknown) (unknown) Chloride 102 (units (u nknown) date) unknown) (unknown) (no (unknown) (unknown) Chloride (units (unkno wn) date) unknown) (unknown) (no (unknown) (unknown) Continued (units (unkn own) date) unknown) (unknown) (no (unknown) (unknown) Coronary artery (units (unknown) date) disease unknown) (unknown) (no (unknown) (unknown) Creatinine 0.77 (units (unknown) date) unknown) (unknown) (no (unknown) (unknown) Creatinine 0.86 (units (unknown) date) unknown) (unknown) (no (unknown) (unknown) Creatinine (units (unk nown) date) unknown) (unknown) (no (unknown) (unknown) D-Dimer 220 (units (un known) date) unknown) (unknown) (no (unknown) (unknown) D-Dimer (units (unkno wn) date) unknown) (unknown) (no (unknown) (unknown) : 1970 (units (unknown) date) Acct:[id number] unknown) (unknown) (no (unknown) (unknown) Date Patient Seen: (units (unknown) date) 09/10/22 unknown) (unknown) (no (unknown) (unknown) Date of Service: (units (unknown) date) 09/09/22 unknown) (unknown) (no (unknown) (unknown) Date of admission: (units (unknown) date) unknown) (unknown) (no (unknown) (unknown) Depression (units (unk nown) date) unknown) (unknown) (no (unknown) (unknown) Diet/Activity/Treat (unit s (unknown) date) ments unknown) (unknown) (no (unknown) (unknown) Diet: Diet as (units ( unknown) date) Tolerated unknown) (unknown) (no (unknown) (unknown) Discharge Data (units (unknown) date) unknown) (unknown) (no (unknown) (unknown) Discharge Date: (units (unknown) date) 09/10/22 unknown) (unknown) (no (unknown) (unknown) Discharge (units (unkn own) date) Diagnosis: unknown) (unknown) (no (unknown) (unknown) Discharge Plan (units (unknown) date) unknown) (unknown) (no (unknown) (unknown) Discharge Providers (unit s (unknown) date) unknown) (unknown) (no (unknown) (unknown) Discharge Summary (units (unknown) date) unknown) (unknown) (no (unknown) (unknown) Discharge orders + (units (unknown) date) Medications unknown) (unknown) (no (unknown) (unknown) Discharge provider: (unit s (unknown) date) unknown) (unknown) (no (unknown) (unknown) ED. (units (unkno wn) date) unknown) (unknown) (no (unknown) (unknown) EXT: warm and well (units (unknown) date) perfused with no unknown) edema (unknown) (no (unknown) (unknown) Eos # (Auto) 200 (units (unknown) date) unknown) (unknown) (no (unknown) (unknown) Eos # (Auto) 300 (units (unknown) date) unknown) (unknown) (no (unknown) (unknown) Eos # (Auto) (units (u nknown) date) unknown) (unknown) (no (unknown) (unknown) Eos % (Auto) 2.7 (units (unknown) date) unknown) (unknown) (no (unknown) (unknown) Eos % (Auto) 4.8 H (units (unknown) date) unknown) (unknown) (no (unknown) (unknown) Eos % (Auto) (units (u nknown) date) unknown) (unknown) (no (unknown) (unknown) Essential (units (unkn own) date) hypertension unknown) (unknown) (no (unknown) (unknown) Estimated GFR > 60 (units (unknown) date) unknown) (unknown) (no (unknown) (unknown) Estimated GFR (units ( unknown) date) unknown) (unknown) (no (unknown) (unknown) Exam Narrative: (units (unknown) date) unknown) (unknown) (no (unknown) (unknown) Exam (units (unkno wn) date) unknown) (unknown) (no (unknown) (unknown) Family History (units (unknown) date) (Reviewed 09/09/22 @ unknown) 20:49 by Daniel Hector MD) (unknown) (no (unknown) (unknown) Father Hypertension (unit s (unknown) date) unknown) (unknown) (no (unknown) (unknown) Follow (units (unkno wn) date) up/Referrals: unknown) (unknown) (no (unknown) (unknown) GEN: no acute (units ( unknown) date) distress unknown) (unknown) (no (unknown) (unknown) Generalized anxiety (unit s (unknown) date) disorder with panic unknown) attacks (unknown) (no (unknown) (unknown) Globulin 3.4 (units (u nknown) date) unknown) (unknown) (no (unknown) (unknown) Globulin (units (unkno wn) date) unknown) (unknown) (no (unknown) (unknown) Glucose 109 H (units ( unknown) date) unknown) (unknown) (no (unknown) (unknown) Glucose 190 H (units ( unknown) date) unknown) (unknown) (no (unknown) (unknown) Glucose (units (unkno wn) date) unknown) (unknown) (no (unknown) (unknown) HEENT: moist mucous (unit s (unknown) date) membranes, PERRL unknown) (unknown) (no (unknown) (unknown) Hct 43.2 (units (unkno wn) date) unknown) (unknown) (no (unknown) (unknown) Hct 46.0 (units (unkno wn) date) unknown) (unknown) (no (unknown) (unknown) Hct (units (unkno wn) date) unknown) (unknown) (no (unknown) (unknown) Herniated (units (unkn own) date) intervertebral disc unknown) of lumbar spine (unknown) (no (unknown) (unknown) Hgb 14.2 (units (unkno wn) date) unknown) (unknown) (no (unknown) (unknown) Hgb 15.3 (units (unkno wn) date) unknown) (unknown) (no (unknown) (unknown) Hgb (units (unkno wn) date) unknown) (unknown) (no (unknown) (unknown) History of Present (units (unknown) date) Illness unknown) (unknown) (no (unknown) (unknown) Hospital Course (units (unknown) date) unknown) (unknown) (no (unknown) (unknown) Hospital Course: (units (unknown) date) unknown) (unknown) (no (unknown) (unknown) Hx of cervical (units (unknown) date) discectomy (-2013) unknown) (unknown) (no (unknown) (unknown) Hyperlipidemia (units (unknown) date) unknown) (unknown) (no (unknown) (unknown) Hypertension (units (u nknown) date) unknown) (unknown) (no (unknown) (unknown) INR 1.0 (units (unkno wn) date) unknown) (unknown) (no (unknown) (unknown) INR (units (unkno wn) date) unknown) (unknown) (no (unknown) (unknown) In the ED workup (units (unknown) date) was done, vitals unknown) notable for afebrile, heart rate in 110s, o2 (unknown) (no (unknown) (unknown) [facility] (units (unknown) date) [address] unknown) [place] [id number] (unknown) (no (unknown) (unknown) [facility] MD (units (unknown) date) unknown) (unknown) (no (unknown) (unknown) Laboratory Results (units (unknown) date) - last 24 hr unknown) (unknown) (no (unknown) (unknown) Labs (units (unkno wn) date) unknown) (unknown) (no (unknown) (unknown) Labs: (units (unkno wn) date) unknown) (unknown) (no (unknown) (unknown) Lipase 51 (units (unkn own) date) unknown) (unknown) (no (unknown) (unknown) Lipase (units (unkno wn) date) unknown) (unknown) (no (unknown) (unknown) Lymph # (Auto) 1300 (unit s (unknown) date) unknown) (unknown) (no (unknown) (unknown) Lymph # (Auto) 1800 (unit s (unknown) date) unknown) (unknown) (no (unknown) (unknown) Lymph # (Auto) (units (unknown) date) unknown) (unknown) (no (unknown) (unknown) Lymph % (Auto) 14.9 (unit s (unknown) date) L unknown) (unknown) (no (unknown) (unknown) Lymph % (Auto) 24.9 (unit s (unknown) date) L unknown) (unknown) (no (unknown) (unknown) Lymph % (Auto) (units (unknown) date) unknown) (unknown) (no (unknown) (unknown) MCH 30.1 (units (unkno wn) date) unknown) (unknown) (no (unknown) (unknown) MCH 30.3 (units (unkno wn) date) unknown) (unknown) (no (unknown) (unknown) MCH (units (unkno wn) date) unknown) (unknown) (no (unknown) (unknown) MCHC 32.8 (units (unkn own) date) unknown) (unknown) (no (unknown) (unknown) MCHC 33.2 (units (unkn own) date) unknown) (unknown) (no (unknown) (unknown) MCHC (units (unkno wn) date) unknown) (unknown) (no (unknown) (unknown) MCV 91.2 (units (unkno wn) date) unknown) (unknown) (no (unknown) (unknown) MCV 91.7 (units (unkno wn) date) unknown) (unknown) (no (unknown) (unknown) MCV (units (unkno wn) date) unknown) (unknown) (no (unknown) (unknown) Magnesium 2.0 (units ( unknown) date) unknown) (unknown) (no (unknown) (unknown) Magnesium (units (unkn own) date) unknown) (unknown) (no (unknown) (unknown) Medical History (units (unknown) date) (Reviewed 09/09/22 @ unknown) 20:49 by Daniel Hector MD) (unknown) (no (unknown) (unknown) Mc[place]osh # (Auto) 500 (units (unknown) date) unknown) (unknown) (no (unknown) (unknown) Mc[place]osh # (Auto) 700 (units (unknown) date) unknown) (unknown) (no (unknown) (unknown) [place]osh # (Auto) (units ( unknown) date) unknown) (unknown) (no (unknown) (unknown) [place]osh % (Auto) 5.5 (units (unknown) date) unknown) (unknown) (no (unknown) (unknown) [place]osh % (Auto) 9.1 (units (unknown) date) unknown) (unknown) (no (unknown) (unknown) Mc[place]osh % (Auto) (units ( unknown) date) unknown) (unknown) (no (unknown) (unknown) Mother Diabetes (units (unknown) date) mellitus unknown) (unknown) (no (unknown) (unknown) Mr. Alonso is a 52M (unit s (unknown) date) with CAD, cervical unknown) radiculopathy, opiate addiction, HTN who (unknown) (no (unknown) (unknown) NECK: trachea (units ( unknown) date) midline, no JVD unknown) (unknown) (no (unknown) (unknown) NEURO: awake, (units ( unknown) date) alert, oriented, no unknown) focal deficits (unknown) (no (unknown) (unknown) Narrative (units (unkn own) date) unknown) (unknown) (no (unknown) (unknown) Narrative: (units (unk nown) date) unknown) (unknown) (no (unknown) (unknown) Nasal Screen MRSA (units (unknown) date) (PCR) Not detected unknown) (unknown) (no (unknown) (unknown) Nasal Screen MRSA (units (unknown) date) (PCR) unknown) (unknown) (no (unknown) (unknown) Neut # (Auto) 4400 (units (unknown) date) unknown) (unknown) (no (unknown) (unknown) Neut # (Auto) 6400 (units (unknown) date) unknown) (unknown) (no (unknown) (unknown) Neut # (Auto) (units ( unknown) date) unknown) (unknown) (no (unknown) (unknown) Neut % (Auto) 60.8 (units (unknown) date) unknown) (unknown) (no (unknown) (unknown) Neut % (Auto) 76.0 (units (unknown) date) H unknown) (unknown) (no (unknown) (unknown) Neut % (Auto) (units ( unknown) date) unknown) (unknown) (no (unknown) (unknown) New (units (unkno wn) date) unknown) (unknown) (no (unknown) (unknown) Objective (units (unkn own) date) unknown) (unknown) (no (unknown) (unknown) Opiate addiction (units (unknown) date) unknown) (unknown) (no (unknown) (unknown) Oxygen Delivery (units (unknown) date) Method Room Air Room unknown) Air (unknown) (no (unknown) (unknown) Oxygen Delivery (units (unknown) date) Method Room Air unknown) (unknown) (no (unknown) (unknown) Oxygen Delivery (units (unknown) date) Method unknown) (unknown) (no (unknown) (unknown) Oxygen Flow Rate 0 (units (unknown) date) unknown) (unknown) (no (unknown) (unknown) PFSH (units (unkno wn) date) unknown) (unknown) (no (unknown) (unknown) PT 11.1 (units (unkno wn) date) unknown) (unknown) (no (unknown) (unknown) PT (units (unkno wn) date) unknown) (unknown) (no (unknown) (unknown) PULM: clear (units (un known) date) bilaterally unknown) 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 unknown) (unknown) (no (unknown) (unknown) Patient (units (unkno wn) date) Disposition: Home unknown) (unknown) (no (unknown) (unknown) Patient: (units (unknown) date) Anthony MCDUFFIE MR# unknown) (unknown) (no (unknown) (unknown) Per admitting (units ( unknown) date) provider, unknown) (unknown) (no (unknown) (unknown) Peripheral (units (unk nown) date) neuropathy unknown) (unknown) (no (unknown) (unknown) Plt Count 214 (units ( unknown) date) unknown) (unknown) (no (unknown) (unknown) Plt Count 230 (units ( unknown) date) unknown) (unknown) (no (unknown) (unknown) Plt Count (units (unkn own) date) unknown) (unknown) (no (unknown) (unknown) Potassium 3.6 (units ( unknown) date) unknown) (unknown) (no (unknown) (unknown) Potassium 4.2 (units ( unknown) date) unknown) (unknown) (no (unknown) (unknown) Potassium (units (unkn own) date) unknown) (unknown) (no (unknown) (unknown) Prescriptions: (units (unknown) date) unknown) (unknown) (no (unknown) (unknown) Primary Care (units (u nknown) date) Provider: unknown) [facility] (unknown) (no (unknown) (unknown) Primary care (units (u nknown) date) physician: unknown) (unknown) (no (unknown) (unknown) Provider Discharge (units (unknown) date) Comment: You were unknown) admitted to the hospital with chest (unknown) (no (unknown) (unknown) Provider (units (unkno wn) date) unknown) (unknown) (no (unknown) (unknown) Provider: (units (unkn own) date) Varun Burnett D.O. unknown) (unknown) (no (unknown) (unknown) Pulse Oximetry 94 (units (unknown) date) unknown) (unknown) (no (unknown) (unknown) Pulse Oximetry 95 (units (unknown) date) 96 unknown) (unknown) (no (unknown) (unknown) Pulse Rate 75 (units ( unknown) date) unknown) (unknown) (no (unknown) (unknown) Pulse Rate 77 (units ( unknown) date) unknown) (unknown) (no (unknown) (unknown) RBC 4.71 (units (unkno wn) date) unknown) (unknown) (no (unknown) (unknown) RBC 5.04 (units (unkno wn) date) unknown) (unknown) (no (unknown) (unknown) RBC (units (unkno wn) date) unknown) (unknown) (no (unknown) (unknown) RDW 13.0 (units (unkno wn) date) unknown) (unknown) (no (unknown) (unknown) RDW 13.2 (units (unkno wn) date) unknown) (unknown) (no (unknown) (unknown) RDW (units (unkno wn) date) unknown) (unknown) (no (unknown) (unknown) RLS (restless legs (units (unknown) date) syndrome) unknown) (unknown) (no (unknown) (unknown) Respiratory Rate 13 (unit s (unknown) date) unknown) (unknown) (no (unknown) (unknown) Respiratory Rate 18 (unit s (unknown) date) unknown) (unknown) (no (unknown) (unknown) Varun Burnett DO (units (unknown) date) unknown) (unknown) (no (unknown) (unknown) Rx Instructions: (units (unknown) date) unknown) (unknown) (no (unknown) (unknown) SARS-CoV-2 (PCR) (units (unknown) date) Negative unknown) (unknown) (no (unknown) (unknown) SARS-CoV-2 (PCR) (units (unknown) date) unknown) (unknown) (no (unknown) (unknown) Signed (units (unkno wn) date) By:<Electronically unknown) signed by Varun Burnett D.O.> (unknown) (no (unknown) (unknown) Smoking Status: (units (unknown) date) Current every day unknown) smoker (unknown) (no (unknown) (unknown) Social History (units (unknown) date) (Reviewed 09/09/22 @ unknown) 16:59 by Flaco Brock MD) (unknown) (no (unknown) (unknown) Sodium 138 (units (unk nown) date) unknown) (unknown) (no (unknown) (unknown) Sodium (units (unkno wn) date) unknown) (unknown) (no (unknown) (unknown) Spinal stenosis of (units (unknown) date) lumbar region with unknown) neurogenic claudication (unknown) (no (unknown) (unknown) Spondylolisthesis (units (unknown) date) of lumbar region unknown) (unknown) (no (unknown) (unknown) Stand Alone Forms: (units (unknown) date) Patient Portal/API, unknown) Stroke Signs + Symptoms (unknown) (no (unknown) (unknown) Stenosis of artery (units (unknown) date) unknown) (unknown) (no (unknown) (unknown) Summary (units (unkno wn) date) unknown) (unknown) (no (unknown) (unknown) Surgical History (units (unknown) date) (Reviewed 09/09/22 @ unknown) 20:49 by Daniel Hector MD) (unknown) (no (unknown) (unknown) Temperature 97.3 F (units (unknown) date) L unknown) (unknown) (no (unknown) (unknown) Temperature 98.1 F (units (unknown) date) unknown) (unknown) (no (unknown) (unknown) This is a 52 year (units (unknown) date) old male with PMH of unknown) CAD, cervical radiculopathy (nearing (unknown) (no (unknown) (unknown) Time Patient Seen: (units (unknown) date) 15:40 unknown) (unknown) (no (unknown) (unknown) Total Bilirubin 0.5 (unit s (unknown) date) unknown) (unknown) (no (unknown) (unknown) Total Bilirubin (units (unknown) date) unknown) (unknown) (no (unknown) (unknown) Total Creatine (units (unknown) date) Kinase 163 149 unknown) (unknown) (no (unknown) (unknown) Total Creatine (units (unknown) date) Kinase unknown) (unknown) (no (unknown) (unknown) Total Protein 8.1 (units (unknown) date) unknown) (unknown) (no (unknown) (unknown) Total Protein (units ( unknown) date) unknown) (unknown) (no (unknown) (unknown) Troponin I < 0.012 (units (unknown) date) < 0.012 unknown) (unknown) (no (unknown) (unknown) Troponin I < 0.012 (units (unknown) date) unknown) (unknown) (no (unknown) (unknown) Troponin I (units (unk nown) date) unknown) (unknown) (no (unknown) (unknown) Visit (units (unkno wn) date) Report/Discharge unknown) Packet (unknown) (no (unknown) (unknown) Vital Signs (units (un known) date) unknown) (unknown) (no (unknown) (unknown) Vitamin D (units (unkn own) date) deficiency unknown) (unknown) (no (unknown) (unknown) WBC 7.2 (units (unkno wn) date) unknown) (unknown) (no (unknown) (unknown) WBC 8.4 (units (unkno wn) date) unknown) (unknown) (no (unknown) (unknown) WBC (units (unkno wn) date) unknown) (unknown) (no (unknown) (unknown) [Embedded Image Not (unit s (unknown) date) Available] unknown) (unknown) (no (unknown) (unknown) alcohol intake: (units (unknown) date) never unknown) (unknown) (no (unknown) (unknown) alprazolam 0.5 mg (units (unknown) date) tablet unknown) (unknown) (no (unknown) (unknown) and he should (units ( unknown) date) follow up with PCP unknown) and surgeon as previously scheduled. (unknown) (no (unknown) (unknown) arm. Today he had (units (unknown) date) let sided chest pain unknown) that is somewhat different than his (unknown) (no (unknown) (unknown) aspirin 81 mg (units ( unknown) date) tablet,delayed unknown) release (DR/EC) (unknown) (no (unknown) (unknown) atorvastatin 40 mg (units (unknown) date) tablet unknown) (unknown) (no (unknown) (unknown) bupropion HCl 150 (units (unknown) date) mg tablet extended unknown) release 24 hr (unknown) (no (unknown) (unknown) cervical (units (unkno wn) date) radiculopathy. He unknown) has developed pain that radiates down the entire left (unknown) (no (unknown) (unknown) discomfort. Stress (units (unknown) date) testing was unknown) unremarkable, this may be due to another (unknown) (no (unknown) (unknown) evaluation of chest (unit s (unknown) date) pain. He underwent unknown) nuclear stress testing that was deemed (unknown) (no (unknown) (unknown) exacerbation of (units (unknown) date) your cervical unknown) disease. Steroids were sent as they have worked (unknown) (no (unknown) (unknown) few months ago for (units (unknown) date) similar pain and had unknown) an inconclusive exercise stress test and (unknown) (no (unknown) (unknown) for you in the (units (unknown) date) past. Refill of pain unknown) medications was sent to your pharmacy as (unknown) (no (unknown) (unknown) gabapentin 600 mg (units (unknown) date) tablet unknown) (unknown) (no (unknown) (unknown) has worked for him (units (unknown) date) in the past. He was unknown) discharged after stress testing with (unknown) (no (unknown) (unknown) household members: (units (unknown) date) family unknown) (unknown) (no (unknown) (unknown) is pending a (units (u nknown) date) nuclear stress test. unknown) He has stated his pain is constant since this (unknown) (no (unknown) (unknown) leave on most (units ( unknown) date) painful area for up unknown) to 12 hrs (unknown) (no (unknown) (unknown) lidocaine (units (unkn own) date) [Lidoderm] 5 % unknown) adhesive patch,medicated (unknown) (no (unknown) (unknown) low risk for (units (un known) date) ischemia. He had unknown) improvement in his symptoms. He complained of neck (unknown) (no (unknown) (unknown) metoprolol tartrate (unit s (unknown) date) 25 mg tablet unknown) (unknown) (no (unknown) (unknown) morning, nothing (units (unknown) date) has relieved it unknown) aside from pain medication he received in the (unknown) (no (unknown) (unknown) normal neck and arm (unit s (unknown) date) pain. No shortness unknown) of breath. Of note he does have known (unknown) (no (unknown) (unknown) not large enough to (unit s (unknown) date) be intervened upon. unknown) He is taking aspirin. He was admitted a (unknown) (no (unknown) (unknown) oxycodone-acetamino (unit s (unknown) date) phen [Percocet] unknown) 5-325 mg tablet (unknown) (no (unknown) (unknown) pain, severe, that (units (unknown) date) was improved with a unknown) single dose of 20 mg of prednisone which (unknown) (no (unknown) (unknown) prednisone 20 mg (units (unknown) date) tablet unknown) (unknown) (no (unknown) (unknown) prednisone burst of (units (unknown) date) 20 mg for 5 days unknown) (previously worked well for him), percocet, (unknown) (no (unknown) (unknown) presented to the (units (unknown) date) hospital chest unknown) painn. He has a long history of neck pain due to (unknown) (no (unknown) (unknown) sats 98% on room (units (unknown) date) air, blood pressure unknown) 170s/90s. Labs notable for WBC 8.4, hgb (unknown) (no (unknown) (unknown) sertraline 50 mg (units (unknown) date) tablet unknown) (unknown) (no (unknown) (unknown) sinus tachcyardia. (units (unknown) date) He was admitted for unknown) further treatment. (unknown) (no (unknown) (unknown) surgical (units (unkno wn) date) intervention in the unknown) coming weeks), and HTN who was admitted for further (unknown) (no (unknown) (unknown) well. (units (unkno wn) date) unknown) Result panel 636 (unknown) (no (unknown) (unknown) (no value) (units (unk nown) date) unknown) (unknown) (no (unknown) (unknown) <Electronically (units (unknown) date) signed by Flaco unknown) MD Vinod> (unknown) (no (unknown) (unknown) (Lidoderm) (units (unk nown) date) unknown) (unknown) (no (unknown) (unknown) 09/09/22 09/09/22 (units (unknown) date) 09/09/22 Range/Units unknown) (unknown) (no (unknown) (unknown) 09/09/22 (units (unkno wn) date) unknown) (unknown) (no (unknown) (unknown) 09/10/22 04:04 (units (unknown) date) unknown) (unknown) (no (unknown) (unknown) 09/16/22 0830 (units ( unknown) date) unknown) (unknown) (no (unknown) (unknown) 14:10 16:10 16:10 (units (unknown) date) unknown) (unknown) (no (unknown) (unknown) 15:54 09/09/22 (units (unknown) date) unknown) (unknown) (no (unknown) (unknown) 16:10 16:30 19:05 (units (unknown) date) unknown) (unknown) (no (unknown) (unknown) 16:15 09/09/22 (units (unknown) date) unknown) (unknown) (no (unknown) (unknown) 16:19 09/09/22 (units (unknown) date) unknown) (unknown) (no (unknown) (unknown) 16:19 (units (unkno wn) date) unknown) (unknown) (no (unknown) (unknown) 16:30 09/09/22 (units (unknown) date) unknown) (unknown) (no (unknown) (unknown) 16:30 (units (unkno wn) date) unknown) (unknown) (no (unknown) (unknown) 16:35 09/09/22 (units (unknown) date) unknown) (unknown) (no (unknown) (unknown) 17:05 (units (unkno wn) date) unknown) (unknown) (no (unknown) (unknown) : [id number] (units (u nknown) date) unknown) (unknown) (no (unknown) (unknown) ADD (attention (units (unknown) date) deficit disorder) unknown) (unknown) (no (unknown) (unknown) ALT (<50) IU/L (units (unknown) date) unknown) (unknown) (no (unknown) (unknown) ALT 34 (<50) IU/L (units (unknown) date) unknown) (unknown) (no (unknown) (unknown) APTT (26-36) (units (u nknown) date) SECONDS unknown) (unknown) (no (unknown) (unknown) APTT 32 (26-36) (units (unknown) date) SECONDS unknown) (unknown) (no (unknown) (unknown) AST (17-59) IU/L (units (unknown) date) unknown) (unknown) (no (unknown) (unknown) AST 37 (17-59) IU/L (unit s (unknown) date) unknown) (unknown) (no (unknown) (unknown) Acetaminophen (units ( unknown) date) (Acetaminophen 325 unknown) Mg Tablet) 650 mg PO Q6H PRN (unknown) (no (unknown) (unknown) Admin: 09/09/22 (units (unknown) date) 22:14 Dose: 150 mg unknown) (unknown) (no (unknown) (unknown) Admin: 09/09/22 (units (unknown) date) 22:14 Dose: 2 tab unknown) (unknown) (no (unknown) (unknown) Admin: 09/09/22 (units (unknown) date) 22:14 Dose: 25 mg unknown) (unknown) (no (unknown) (unknown) Admin: 09/09/22 (units (unknown) date) 22:14 Dose: 600 mg unknown) (unknown) (no (unknown) (unknown) Admin: 09/10/22 (units (unknown) date) 07:24 Dose: 600 mg unknown) (unknown) (no (unknown) (unknown) Admin: 09/10/22 (units (unknown) date) 11:20 Dose: 2 tab unknown) (unknown) (no (unknown) (unknown) Admit Date/Time: (units (unknown) date) 09/09/22 19:58 unknown) (unknown) (no (unknown) (unknown) Admit Provider: (units (unknown) date) Daniel Hector) (unknown) (no (unknown) (unknown) After history and (units (unknown) date) exam CBC CMP unknown) troponin EKG chest x-ray D-dimer nitro paste (unknown) (no (unknown) (unknown) Age/Sex: 52 / M (units (unknown) date) unknown) (unknown) (no (unknown) (unknown) Albumin (3.5-5.0) (units (unknown) date) g/dL unknown) (unknown) (no (unknown) (unknown) Albumin 4.7 (units (un known) date) (3.5-5.0) g/dL unknown) (unknown) (no (unknown) (unknown) Albumin/Globulin (units (unknown) date) Ratio (1.0-2.8) unknown) (unknown) (no (unknown) (unknown) Albumin/Globulin (units (unknown) date) Ratio 1.4 (1.0-2.8) unknown) (unknown) (no (unknown) (unknown) Alkaline (units (unkno wn) date) Phosphatase (38-126) unknown) U/L (unknown) (no (unknown) (unknown) Alkaline (units (unkno wn) date) Phosphatase 60 unknown) (38-126) U/L (unknown) (no (unknown) (unknown) Allergies (units (unkn own) date) unknown) (unknown) (no (unknown) (unknown) Allergy/AdvReac (units (unknown) date) Type Severity unknown) Reaction Status Date / Time (unknown) (no (unknown) (unknown) Alprazolam (units (unk nown) date) (Alprazolam 0.5 Mg unknown) Tablet) 0.5 mg PO BEDTIME PRN (unknown) (no (unknown) (unknown) Aspirin (Aspirin 81 (unit s (unknown) date) Mg Chew Tab) 324 mg unknown) PO NOW ONE (unknown) (no (unknown) (unknown) Aspirin (Aspirin Ec (unit s (unknown) date) 81 Mg Tablet) 81 mg unknown) PO DAILY NICKY (unknown) (no (unknown) (unknown) Asthma (units (unkno wn) date) unknown) (unknown) (no (unknown) (unknown) Atorvastatin (units (u nknown) date) Calcium unknown) (Atorvastatin 20 Mg Tablet) 40 mg PO BEDTIME NICKY (unknown) (no (unknown) (unknown) BACK: No flank (units (unknown) date) tenderness. unknown) (unknown) (no (unknown) (unknown) BUN (9-20) mg/dL (units (unknown) date) unknown) (unknown) (no (unknown) (unknown) BUN 12 (9-20) mg/dL (unit s (unknown) date) unknown) (unknown) (no (unknown) (unknown) BUN/Creatinine (units (unknown) date) Ratio (6-22) unknown) (unknown) (no (unknown) (unknown) BUN/Creatinine (units (unknown) date) Ratio 15.6 (6-22) unknown) (unknown) (no (unknown) (unknown) Baso # (Auto) (units ( unknown) date) (0-100) /uL unknown) (unknown) (no (unknown) (unknown) Baso # (Auto) 100 (units (unknown) date) (0-100) /uL unknown) (unknown) (no (unknown) (unknown) Baso % (Auto) (0-2) (unit s (unknown) date) % unknown) (unknown) (no (unknown) (unknown) Baso % (Auto) 0.9 (units (unknown) date) (0-2) % unknown) (unknown) (no (unknown) (unknown) Blood Pressure (units (unknown) date) 176/97 H 180/103 H unknown) (unknown) (no (unknown) (unknown) Blood Pressure (units (unknown) date) 177/98 H 09/09/22 unknown) 15:54 (unknown) (no (unknown) (unknown) Blood Pressure (units (unknown) date) 177/98 H unknown) (unknown) (no (unknown) (unknown) Blood Pressure (units (unknown) date) 193/101 H 190/108 H unknown) (unknown) (no (unknown) (unknown) Bupropion HCl (units ( unknown) date) (Bupropion Xl 150 Mg unknown) Tab) 150 mg PO BID NICKY (unknown) (no (unknown) (unknown) CARDIOVASCULAR: (units (unknown) date) Positive chest pain, unknown) palpitations (unknown) (no (unknown) (unknown) CARDIOVASCULAR: (units (unknown) date) Regular rate and unknown) rhythm without murmurs (unknown) (no (unknown) (unknown) CC: Chest pain (units (unknown) date) unknown) (unknown) (no (unknown) (unknown) CK-MB (CK-2) (units (u nknown) date) (<2.37) ng/mL unknown) (unknown) (no (unknown) (unknown) CK-MB (CK-2) 0.77 (units (unknown) date) 0.69 (<2.37) ng/mL unknown) (unknown) (no (unknown) (unknown) CK-MB (CK-2) Rel (units (unknown) date) Index (1.5-5.0) % unknown) (unknown) (no (unknown) (unknown) CK-MB (CK-2) Rel (units (unknown) date) Index 0.5 L 0.5 L unknown) (1.5-5.0) % (unknown) (no (unknown) (unknown) Calcium (8.4-10.2) (units (unknown) date) mg/dL unknown) (unknown) (no (unknown) (unknown) Calcium 9.5 (units (un known) date) (8.4-10.2) mg/dL unknown) (unknown) (no (unknown) (unknown) Carbon Dioxide (units (unknown) date) (22-32) mmol/L unknown) (unknown) (no (unknown) (unknown) Carbon Dioxide 29 (units (unknown) date) (22-32) mmol/L unknown) (unknown) (no (unknown) (unknown) Cervical (units (unkno wn) date) radiculopathy due to unknown) osteoarthritis of spine (unknown) (no (unknown) (unknown) Chest pain (units (unk n) date) unknown) (unknown) (no (unknown) (unknown) Chief Complaint: (units (unknown) date) Chest Pain unknown) (unknown) (no (unknown) (unknown) Chloride (98-107) (units (unknown) date) mmol/L unknown) (unknown) (no (unknown) (unknown) Chloride 102 (units (u nknown) date) (98-107) mmol/L unknown) (unknown) (no (unknown) (unknown) Clinical (units (unkno wn) date) Impression: unknown) (unknown) (no (unknown) (unknown) Complicating (units (u nknown) date) co-morbidities: unknown) History hypertension history of abnormal stress (unknown) (no (unknown) (unknown) Consultations: 5:26 (unit s (unknown) date) p.m. spoke with unknown) cardiology dr sullivan, would like patient to (unknown) (no (unknown) (unknown) Coronary artery (units (unknown) date) disease unknown) (unknown) (no (unknown) (unknown) Course (units (unkno wn) date) unknown) (unknown) (no (unknown) (unknown) Creatinine (units (unk n) date) (0.66-1.25) mg/dL unknown) (unknown) (no (unknown) (unknown) Creatinine 0.77 (units (unknown) date) (0.66-1.25) mg/dL unknown) (unknown) (no (unknown) (unknown) D-Dimer (<500) (units (unknown) date) ng/ml unknown) (unknown) (no (unknown) (unknown) D-Dimer 220 (<500) (units (unknown) date) ng/ml unknown) (unknown) (no (unknown) (unknown) : 1970 (units (unknown) date) Acct:[id number] unknown) (unknown) (no (unknown) (unknown) Data collected (units (unknown) date) from: Patient unknown) (unknown) (no (unknown) (unknown) Date of Service: (units (unknown) date) 09/09/22 unknown) (unknown) (no (unknown) (unknown) Departure (units (unkn own) date) unknown) (unknown) (no (unknown) (unknown) Depression (units (unk nown) date) unknown) (unknown) (no (unknown) (unknown) Diagnosis: Chest (units (unknown) date) pain unknown) (unknown) (no (unknown) (unknown) Differential (units (u nknown) date) considered: Includes unknown) but not limited to stable angina unstable (unknown) (no (unknown) (unknown) Discharge Plan (units (unknown) date) unknown) (unknown) (no (unknown) (unknown) Discontinued (units (u nknown) date) Medications unknown) (unknown) (no (unknown) (unknown) Discussion: (units (un known) date) Appropriate for unknown) admission for chest pain evaluation, I did review (unknown) (no (unknown) (unknown) Documented By: JIGNA (units (unknown) date) unknown) (unknown) (no (unknown) (unknown) Documented By: CTS (units (unknown) date) unknown) (unknown) (no (unknown) (unknown) Documented By: DL (units (unknown) date) unknown) (unknown) (no (unknown) (unknown) Documented By: RB (units (unknown) date) unknown) (unknown) (no (unknown) (unknown) ENT: Mucous (units (un known) date) membranes moist. unknown) (unknown) (no (unknown) (unknown) ER Physician: (units ( unknown) date) Flaco Brock MD unknown) (unknown) (no (unknown) (unknown) EXTREMITIES: No (units (unknown) date) gross deformities. unknown) (unknown) (no (unknown) (unknown) EYES: Pupils equal (units (unknown) date) round unknown) (unknown) (no (unknown) (unknown) Emergency Report (units (unknown) date) unknown) (unknown) (no (unknown) (unknown) Enoxaparin Sodium (units (unknown) date) (Enoxaparin 40 unknown) Mg/0.4 Ml Syringe) 40 mg SUBCUT DAILY NICKY (unknown) (no (unknown) (unknown) Eos # (Auto) (units (u nknown) date) (0-450) /uL unknown) (unknown) (no (unknown) (unknown) Eos # (Auto) 200 (units (unknown) date) (0-450) /uL unknown) (unknown) (no (unknown) (unknown) Eos % (Auto) (2-4) (units (unknown) date) % unknown) (unknown) (no (unknown) (unknown) Eos % (Auto) 2.7 (units (unknown) date) (2-4) % unknown) (unknown) (no (unknown) (unknown) Essential (units (unkn own) date) hypertension unknown) (unknown) (no (unknown) (unknown) Estimated GFR > 60 (units (unknown) date) (>60) mL/min unknown) (unknown) (no (unknown) (unknown) Estimated GFR (>60) (unit s (unknown) date) mL/min unknown) (unknown) (no (unknown) (unknown) Exam Narrative: (units (unknown) date) unknown) (unknown) (no (unknown) (unknown) Exam documented (units (unknown) date) above, pertinent unknown) findings include: Hypertension (unknown) (no (unknown) (unknown) Exam (units (unkno wn) date) unknown) (unknown) (no (unknown) (unknown) Family History (units (unknown) date) (Reviewed 09/09/22 @ unknown) 20:49 by Daniel Hector MD) (unknown) (no (unknown) (unknown) Father Hypertension (unit s (unknown) date) unknown) (unknown) (no (unknown) (unknown) GASTROINTESTINAL: (units (unknown) date) Abdomen soft, unknown) non-tender (unknown) (no (unknown) (unknown) GASTROINTESTINAL: (units (unknown) date) negative nausea, unknown) vomiting, abdominal pain (unknown) (no (unknown) (unknown) GENERAL: in no (units (unknown) date) distress, not toxic unknown) not dyspneic (unknown) (no (unknown) (unknown) GENERAL: negative (units (unknown) date) chills, fatigue, unknown) malaise, fever, sweats. (unknown) (no (unknown) (unknown) : negative (units (u nknown) date) dysuria, frequency, unknown) hematuria (unknown) (no (unknown) (unknown) Gabapentin (units (unk nown) date) (Gabapentin 600 Mg unknown) Tablet) 600 mg PO TID NICKY (unknown) (no (unknown) (unknown) General (units (unkno wn) date) unknown) (unknown) (no (unknown) (unknown) Generalized anxiety (unit s (unknown) date) disorder with panic unknown) attacks (unknown) (no (unknown) (unknown) Globulin (1.7-4.1) (units (unknown) date) g/dL unknown) (unknown) (no (unknown) (unknown) Globulin 3.4 (units (u nknown) date) (1.7-4.1) g/dL unknown) (unknown) (no (unknown) (unknown) Glucose (70-100) (units (unknown) date) mg/dL unknown) (unknown) (no (unknown) (unknown) Glucose 190 H (units ( unknown) date) (70-100) mg/dL unknown) (unknown) (no (unknown) (unknown) HEAD: (units (unkno wn) date) Normocephalic. unknown) (unknown) (no (unknown) (unknown) HEENT: negative (units (unknown) date) sinus pain, ear unknown) pain, sore throat (unknown) (no (unknown) (unknown) HPI - Chest Pain (units (unknown) date) unknown) (unknown) (no (unknown) (unknown) HPI narrative: (units (unknown) date) unknown) (unknown) (no (unknown) (unknown) Hct (41-53) % (units ( unknown) date) unknown) (unknown) (no (unknown) (unknown) Hct 46.0 (41-53) % (units (unknown) date) unknown) (unknown) (no (unknown) (unknown) Herniated (units (unkn own) date) intervertebral disc unknown) of lumbar spine (unknown) (no (unknown) (unknown) Hgb (13.5-17.5) (units (unknown) date) g/dL unknown) (unknown) (no (unknown) (unknown) Hgb 15.3 (units (unkno wn) date) (13.5-17.5) g/dL unknown) (unknown) (no (unknown) (unknown) History of Present (units (unknown) date) Illness unknown) (unknown) (no (unknown) (unknown) Home Medications (units (unknown) date) unknown) (unknown) (no (unknown) (unknown) Hx of cervical (units (unknown) date) discectomy () unknown) (unknown) (no (unknown) (unknown) Hydromorphone HCl (units (unknown) date) (Hydromorphone 1 Mg unknown) Inj) 1 mg IV NOW ONE (unknown) (no (unknown) (unknown) Hyperlipidemia (units (unknown) date) unknown) (unknown) (no (unknown) (unknown) Hypertension (units (u nknown) date) unknown) (unknown) (no (unknown) (unknown) INR (0.9-1.3) (units ( unknown) date) unknown) (unknown) (no (unknown) (unknown) INR 1.0 (0.9-1.3) (units (unknown) date) unknown) (unknown) (no (unknown) (unknown) Imaging studies (units (unknown) date) independently unknown) reviewed: Chest x-ray no acute process (unknown) (no (unknown) (unknown) Independently (units ( unknown) date) reviewed EKG as unknown) above sinus tachycardia rate [address] elevation (unknown) (no (unknown) (unknown) Initial Vital Signs (unit s (unknown) date) unknown) (unknown) (no (unknown) (unknown) Initial Vital (units ( unknown) date) Signs: unknown) (unknown) (no (unknown) (unknown) [facility] (units (unknown) date) [address] unknown) [place] [address] (unknown) (no (unknown) (unknown) Lab Data (units (unkno wn) date) unknown) (unknown) (no (unknown) (unknown) Lab Results (units (un known) date) unknown) (unknown) (no (unknown) (unknown) Lab Test results (units (unknown) date) independently unknown) reviewed as above. Pertinent findings: Troponin (unknown) (no (unknown) (unknown) Labs: (units (unkno wn) date) unknown) (unknown) (no (unknown) (unknown) Last Admin: (units (un known) date) 09/09/22 16:16 Dose: unknown) Not Given (unknown) (no (unknown) (unknown) Last Admin: (units (un known) date) 09/09/22 17:05 Dose: unknown) 1 inch (unknown) (no (unknown) (unknown) Last Admin: (units (un known) date) 09/09/22 17:09 Dose: unknown) 4 mg (unknown) (no (unknown) (unknown) Last Admin: (units (un known) date) 09/09/22 17:42 Dose: unknown) 25 mg (unknown) (no (unknown) (unknown) Last Admin: (units (un known) date) 09/09/22 18:12 Dose: unknown) 1 mg (unknown) (no (unknown) (unknown) Last Admin: (units (un known) date) 09/09/22 22:14 Dose: unknown) 0.5 mg (unknown) (no (unknown) (unknown) Last Admin: (units (un known) date) 09/10/22 07:23 Dose: unknown) 2 tab (unknown) (no (unknown) (unknown) Last Admin: (units (un known) date) 09/10/22 07:24 Dose: unknown) 150 mg (unknown) (no (unknown) (unknown) Last Admin: (units (un known) date) 09/10/22 07:24 Dose: unknown) 25 mg (unknown) (no (unknown) (unknown) Last Admin: (units (un known) date) 09/10/22 08:35 Dose: unknown) 2 each (unknown) (no (unknown) (unknown) Last Admin: (units (un known) date) 09/10/22 08:35 Dose: unknown) 40 mg (unknown) (no (unknown) (unknown) Last Admin: (units (un known) date) 09/10/22 08:35 Dose: unknown) 50 mg (unknown) (no (unknown) (unknown) Last Admin: (units (un known) date) 09/10/22 08:35 Dose: unknown) 81 mg (unknown) (no (unknown) (unknown) Last Admin: (units (un known) date) 09/10/22 09:18 Dose: unknown) 20 mg (unknown) (no (unknown) (unknown) Last Admin: (units (un known) date) 09/10/22 15:30 Dose: unknown) 2 tab (unknown) (no (unknown) (unknown) Last Admin: (units (un known) date) 09/10/22 15:30 Dose: unknown) 600 mg (unknown) (no (unknown) (unknown) Lidocaine (units (unkn own) date) (Lidocaine Patch 1 unknown) Each Adh..Patch) 2 each TOP DAILY NICKY (unknown) (no (unknown) (unknown) Limitations: no (units (unknown) date) limitations unknown) (unknown) (no (unknown) (unknown) Lipase (23-300) U/L (unit s (unknown) date) unknown) (unknown) (no (unknown) (unknown) Lipase 51 (23-300) (units (unknown) date) U/L unknown) (unknown) (no (unknown) (unknown) Lymph # (Auto) (units (unknown) date) ([id number]) /uL unknown) (unknown) (no (unknown) (unknown) Lymph # (Auto) 1300 (unit s (unknown) date) ([id number]) /uL unknown) (unknown) (no (unknown) (unknown) Lymph % (Auto) (units (unknown) date) (25-40) % unknown) (unknown) (no (unknown) (unknown) Lymph % (Auto) 14.9 (unit s (unknown) date) L (25-40) % unknown) (unknown) (no (unknown) (unknown) MCH (26-34) PG (units (unknown) date) unknown) (unknown) (no (unknown) (unknown) MCH 30.3 (26-34) PG (unit s (unknown) date) unknown) (unknown) (no (unknown) (unknown) MCHC (30-36) % (units (unknown) date) unknown) (unknown) (no (unknown) (unknown) MCHC 33.2 (30-36) % (unit s (unknown) date) unknown) (unknown) (no (unknown) (unknown) MCV (80-100) fL (units (unknown) date) unknown) (unknown) (no (unknown) (unknown) MCV 91.2 (80-100) (units (unknown) date) fL unknown) (unknown) (no (unknown) (unknown) MDM - Chest Pain (units (unknown) date) unknown) (unknown) (no (unknown) (unknown) MDM Narrative (units ( unknown) date) unknown) (unknown) (no (unknown) (unknown) MDM (units (unkno wn) date) unknown) (unknown) (no (unknown) (unknown) MUSCULOSKELETAL: (units (unknown) date) negative muscle or unknown) bony pain (unknown) (no (unknown) (unknown) Magnesium (1.6-2.3) (unit s (unknown) date) mg/dL unknown) (unknown) (no (unknown) (unknown) Magnesium 2.0 (units ( unknown) date) (1.6-2.3) mg/dL unknown) (unknown) (no (unknown) (unknown) Medical History (units (unknown) date) (Reviewed 09/09/22 @ unknown) 20:49 by Daniel Hector MD) (unknown) (no (unknown) (unknown) Medical decision (units (unknown) date) making narrative: unknown) (unknown) (no (unknown) (unknown) Medical records (units (unknown) date) reviewed: Stress unknown) test from June 2022 (unknown) (no (unknown) (unknown) Medication (units (unk nown) date) Instructions unknown) Recorded Confirmed (unknown) (no (unknown) (unknown) Medication (units (unk nown) date) Instructions unknown) Recorded (unknown) (no (unknown) (unknown) Metoprolol (units (unk nown) date) Succinate unknown) (Metoprolol Er 25 Mg Tablet) 25 mg PO NOW ONE (unknown) (no (unknown) (unknown) Metoprolol Tartrate (unit s (unknown) date) (Metoprolol Ir 25 Mg unknown) Tablet) 25 mg PO BID NICKY (unknown) (no (unknown) (unknown) Mode of arrival: (units (unknown) date) Ambulatory unknown) (unknown) (no (unknown) (unknown) Mcintosh # (Auto) (units ( unknown) date) (0-900) /uL unknown) (unknown) (no (unknown) (unknown) Mcintosh # (Auto) 500 (units (unknown) date) (0-900) /uL unknown) (unknown) (no (unknown) (unknown) Mcintosh % (Auto) (units ( unknown) date) (3-14) % unknown) (unknown) (no (unknown) (unknown) Mcintosh % (Auto) 5.5 (units (unknown) date) (3-14) % unknown) (unknown) (no (unknown) (unknown) Morphine Sulfate (units (unknown) date) (Morphine 4 Mg/Ml unknown) Inj) 4 mg IV NOW ONE (unknown) (no (unknown) (unknown) Mother Diabetes (units (unknown) date) mellitus unknown) (unknown) (no (unknown) (unknown) NECK: Trachea (units ( unknown) date) midline. unknown) (unknown) (no (unknown) (unknown) NEURO: AOx4. (units (u nknown) date) unknown) (unknown) (no (unknown) (unknown) NEUROLOGIC: (units (un known) date) negative weakness, unknown) numbness (unknown) (no (unknown) (unknown) Naloxone HCl (units (u nknown) date) (Naloxone 0.4 Mg/Ml unknown) Vial) 0.2 mg IV Q2MIN PRN (unknown) (no (unknown) (unknown) Narrative (units (unkn own) date) unknown) (unknown) (no (unknown) (unknown) Narrative: (units (unk nown) date) unknown) (unknown) (no (unknown) (unknown) Neut # (Auto) (units ( unknown) date) (2111-8218) /uL unknown) (unknown) (no (unknown) (unknown) Neut # (Auto) 6400 (units (unknown) date) (7425-0501) /uL unknown) (unknown) (no (unknown) (unknown) Neut % (Auto) (units ( unknown) date) (50-75) % unknown) (unknown) (no (unknown) (unknown) Neut % (Auto) 76.0 (units (unknown) date) H (50-75) % unknown) (unknown) (no (unknown) (unknown) Nitroglycerin (units ( unknown) date) (Nitroglycerin Oint unknown) 1 Inch/Gm Oint...G.) 1 inch TOP NOW ONE (unknown) (no (unknown) (unknown) Ondansetron HCl (units (unknown) date) (Ondansetron 4 Mg/2 unknown) Ml Inj) 4 mg IV NOW ONE (unknown) (no (unknown) (unknown) Ondansetron HCl (units (unknown) date) (Ondansetron 4 Mg/2 unknown) Ml Inj) 4 mg IV Q8HR PRN (unknown) (no (unknown) (unknown) Opiate addiction (units (unknown) date) unknown) (unknown) (no (unknown) (unknown) Ordered: (units (unkno wn) date) unknown) (unknown) (no (unknown) (unknown) Orders (units (unkno wn) date) unknown) (unknown) (no (unknown) (unknown) Oxycodone/Acetamino (unit s (unknown) date) phen unknown) (Oxycodone/Acetamino phen 5/325 Tablet) 2 tab PO Q4HR (unknown) (no (unknown) (unknown) Oxycodone/Acetamino (unit s (unknown) date) phen unknown) (Oxycodone/Acetamino phen 5/325 Tablet) 2 tab PO Q8H PRN (unknown) (no (unknown) (unknown) Oxygen Delivery (units (unknown) date) Method Room Air unknown) 09/09/22 15:54 (unknown) (no (unknown) (unknown) Oxygen Delivery (units (unknown) date) Method Room Air unknown) (unknown) (no (unknown) (unknown) Oxygen Delivery (units (unknown) date) Method unknown) (unknown) (no (unknown) (unknown) PRN Reason: (units (un known) date) Fever/Mild Pain unknown) (1-3) (unknown) (no (unknown) (unknown) PRN Reason: Nausea (units (unknown) date) And Vomiting unknown) (unknown) (no (unknown) (unknown) PRN Reason: Opiate (units (unknown) date) Reversal unknown) (unknown) (no (unknown) (unknown) PRN Reason: Pain, (units (unknown) date) Moderate (4-6) unknown) (unknown) (no (unknown) (unknown) PRN Reason: pain (units (unknown) date) unknown) (unknown) (no (unknown) (unknown) PRN Reason: sleep (units (unknown) date) unknown) (unknown) (no (unknown) (unknown) PRN (units (unkno wn) date) unknown) (unknown) (no (unknown) (unknown) PSYCH: Not anxious, (unit s (unknown) date) is cooperative unknown) (unknown) (no (unknown) (unknown) PT (10.1-12.7) (units (unknown) date) SECONDS unknown) (unknown) (no (unknown) (unknown) PT 11.1 (10.1-12.7) (unit s (unknown) date) SECONDS unknown) 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 unknown) (unknown) (no (unknown) (unknown) Patient (units (unkno wn) date) Disposition: unknown) Admitted as Observation (unknown) (no (unknown) (unknown) Patient History (units (unknown) date) unknown) (unknown) (no (unknown) (unknown) Patient here for (units (unknown) date) nonreproducible unknown) left-sided chest pain that started this (unknown) (no (unknown) (unknown) Patient: (units (unknown) date) II,Theaddiee L MR# unknown) (unknown) (no (unknown) (unknown) Peripheral (units (unk nown) date) neuropathy unknown) (unknown) (no (unknown) (unknown) Plt Count (150-400) (unit s (unknown) date) X103/uL unknown) (unknown) (no (unknown) (unknown) Plt Count 230 (units ( unknown) date) (150-400) X103/uL unknown) (unknown) (no (unknown) (unknown) Potassium (3.4-5.1) (unit s (unknown) date) mmol/L unknown) (unknown) (no (unknown) (unknown) Potassium 4.2 (units ( unknown) date) (3.4-5.1) mmol/L unknown) (unknown) (no (unknown) (unknown) Prednisone (units (unk nown) date) (Prednisone 20 Mg unknown) Tablet) 20 mg PO NOW ONE (unknown) (no (unknown) (unknown) Previous Rx's (units ( unknown) date) unknown) (unknown) (no (unknown) (unknown) Pulse Oximetry 97 (units (unknown) date) unknown) (unknown) (no (unknown) (unknown) Pulse Oximetry 98 (units (unknown) date) 09/09/22 15:54 unknown) (unknown) (no (unknown) (unknown) Pulse Oximetry 98 (units (unknown) date) 95 96 unknown) (unknown) (no (unknown) (unknown) Pulse Rate 105 H (units (unknown) date) 100 H unknown) (unknown) (no (unknown) (unknown) Pulse Rate 106 H (units (unknown) date) unknown) (unknown) (no (unknown) (unknown) Pulse Rate 119 H (units (unknown) date) 09/09/22 15:54 unknown) (unknown) (no (unknown) (unknown) Pulse Rate 119 H (units (unknown) date) 112 H 110 H unknown) (unknown) (no (unknown) (unknown) RBC (4.5-5.9) (units ( unknown) date) X106/uL unknown) (unknown) (no (unknown) (unknown) RBC 5.04 (4.5-5.9) (units (unknown) date) X106/uL unknown) (unknown) (no (unknown) (unknown) RDW (11.6-14.8) % (units (unknown) date) unknown) (unknown) (no (unknown) (unknown) RDW 13.0 (units (unkno wn) date) (11.6-14.8) % unknown) (unknown) (no (unknown) (unknown) REACTION' (units (unkn own) date) unknown) (unknown) (no (unknown) (unknown) RESPIRATORY: Clear (units (unknown) date) to auscultation. unknown) Breath sounds equal bilaterally. No wheezes, (unknown) (no (unknown) (unknown) RESPIRATORY: (units (u nknown) date) negative dyspnea, unknown) cough (unknown) (no (unknown) (unknown) RLS (restless legs (units (unknown) date) syndrome) unknown) (unknown) (no (unknown) (unknown) ROS Unobtainable: (units (unknown) date) All systems reviewed unknown) + are unremarkable except as noted in HPI (unknown) (no (unknown) (unknown) Re-evaluations: (units (unknown) date) Reviewed results unknown) with patient. Agrees for admission. (unknown) (no (unknown) (unknown) Related Data (units (u nknown) date) unknown) (unknown) (no (unknown) (unknown) Respiratory Rate 18 (unit s (unknown) date) 09/09/22 15:54 unknown) (unknown) (no (unknown) (unknown) Respiratory Rate 18 (unit s (unknown) date) 19 unknown) (unknown) (no (unknown) (unknown) Respiratory Rate 20 (unit s (unknown) date) unknown) (unknown) (no (unknown) (unknown) Respiratory Rate (units (unknown) date) unknown) (unknown) (no (unknown) (unknown) Review of Systems (units (unknown) date) unknown) (unknown) (no (unknown) (unknown) SARS-CoV-2 (PCR) (units (unknown) date) (Negative) unknown) (unknown) (no (unknown) (unknown) SARS-CoV-2 (PCR) (units (unknown) date) Negative (Negative) unknown) (unknown) (no (unknown) (unknown) SKIN: Warm and dry (units (unknown) date) unknown) (unknown) (no (unknown) (unknown) SKIN: negative (units (unknown) date) rash, skin lesions unknown) (unknown) (no (unknown) (unknown) Sertraline HCl (units (unknown) date) (Sertraline 50 Mg unknown) Tablet) 50 mg PO DAILY NICKY (unknown) (no (unknown) (unknown) Signed By: (units (unk nown) date) unknown) (unknown) (no (unknown) (unknown) Smoking Status: (units (unknown) date) Current every day unknown) smoker (unknown) (no (unknown) (unknown) Social History (units (unknown) date) (Reviewed 09/09/22 @ unknown) 16:59 by Flaco Brock MD) (unknown) (no (unknown) (unknown) Sodium (137-145) (units (unknown) date) mmol/L unknown) (unknown) (no (unknown) (unknown) Sodium 138 (units (unk nown) date) (137-145) mmol/L unknown) (unknown) (no (unknown) (unknown) Source: patient (units (unknown) date) unknown) (unknown) (no (unknown) (unknown) Spinal stenosis of (units (unknown) date) lumbar region with unknown) neurogenic claudication (unknown) (no (unknown) (unknown) Spondylolisthesis (units (unknown) date) of lumbar region unknown) (unknown) (no (unknown) (unknown) Stated Complaint: (units (unknown) date) neck and chest pain unknown) (unknown) (no (unknown) (unknown) Stenosis of artery (units (unknown) date) unknown) (unknown) (no (unknown) (unknown) Stop: 09/09/22 (units (unknown) date) 16:04 unknown) (unknown) (no (unknown) (unknown) Stop: 09/09/22 (units (unknown) date) 16:56 unknown) (unknown) (no (unknown) (unknown) Stop: 09/09/22 (units (unknown) date) 17:32 unknown) (unknown) (no (unknown) (unknown) Stop: 09/09/22 (units (unknown) date) 18:03 unknown) (unknown) (no (unknown) (unknown) Stop: 09/10/22 (units (unknown) date) 09:10 unknown) (unknown) (no (unknown) (unknown) Substance Use Type: (unit s (unknown) date) does not use unknown) (unknown) (no (unknown) (unknown) Surgical History (units (unknown) date) (Reviewed 09/09/22 @ unknown) 20:49 by Daniel Hector MD) (unknown) (no (unknown) (unknown) Temperature 98.1 F (units (unknown) date) 09/09/22 15:54 unknown) (unknown) (no (unknown) (unknown) Temperature 98.1 F (units (unknown) date) unknown) (unknown) (no (unknown) (unknown) Temperature (units (un known) date) unknown) (unknown) (no (unknown) (unknown) Time Seen by (units (u nknown) date) Provider: 09/09/22 unknown) 16:22 (unknown) (no (unknown) (unknown) Total Bilirubin (units (unknown) date) (0.2-1.3) mg/dL unknown) (unknown) (no (unknown) (unknown) Total Bilirubin 0.5 (unit s (unknown) date) (0.2-1.3) mg/dL unknown) (unknown) (no (unknown) (unknown) Total Creatine (units (unknown) date) Kinase (55-170) U/L unknown) (unknown) (no (unknown) (unknown) Total Creatine (units (unknown) date) Kinase 163 149 unknown) (55-170) U/L (unknown) (no (unknown) (unknown) Total Protein (units ( unknown) date) (6.3-8.2) g/dL unknown) (unknown) (no (unknown) (unknown) Total Protein 8.1 (units (unknown) date) (6.3-8.2) g/dL unknown) (unknown) (no (unknown) (unknown) Treatments: Nitro (units (unknown) date) paste aspirin unknown) metoprolol (unknown) (no (unknown) (unknown) Troponin I < 0.012 (units (unknown) date) < 0.012 (0.01-0.034) unknown) ng/mL (unknown) (no (unknown) (unknown) Troponin I (units (unk nown) date) (0.01-0.034) ng/mL unknown) (unknown) (no (unknown) (unknown) Vital Signs - 8 hr (units (unknown) date) unknown) (unknown) (no (unknown) (unknown) Vital Signs (units (un known) date) unknown) (unknown) (no (unknown) (unknown) Vital signs: (units (u nknown) date) unknown) (unknown) (no (unknown) (unknown) Vitamin D (units (unkn own) date) deficiency unknown) (unknown) (no (unknown) (unknown) WBC (4.5-11.0) (units (unknown) date) X103/uL unknown) (unknown) (no (unknown) (unknown) WBC 8.4 (4.5-11.0) (units (unknown) date) X103/uL unknown) (unknown) (no (unknown) (unknown) [Embedded Image Not (unit s (unknown) date) Available] unknown) (unknown) (no (unknown) (unknown) admitted here. Was (units (unknown) date) recommended to have unknown) a chemical stress test and (unknown) (no (unknown) (unknown) alcohol intake (units (unknown) date) frequency: a few unknown) times a month (unknown) (no (unknown) (unknown) alcohol intake: (units (unknown) date) never unknown) (unknown) (no (unknown) (unknown) alprazolam 0.5 mg (units (unknown) date) tablet 0.5 mg PO unknown) BEDTIME PRN sleep #14 05/20/22 (unknown) (no (unknown) (unknown) and below (units (unkn own) date) unknown) (unknown) (no (unknown) (unknown) angina DE non-STEMI (unit s (unknown) date) PE hypertensive unknown) urgency (unknown) (no (unknown) (unknown) aspirin 81 mg (units ( unknown) date) tablet,delayed 81 mg unknown) PO DAILY 04/11/22 09/09/22 (unknown) (no (unknown) (unknown) aspirin ordered (units (unknown) date) unknown) (unknown) (no (unknown) (unknown) atorvastatin 40 mg (units (unknown) date) tablet 40 mg PO unknown) BEDTIME #90 tabs 04/11/22 (unknown) (no (unknown) (unknown) be admitted for (units (unknown) date) nuclear stress test, unknown) he will call to ensure test will be or (unknown) (no (unknown) (unknown) bupropion HCl 150 (units (unknown) date) mg 24 hr tablet, 150 unknown) mg PO BID #60 tabs 05/20/22 (unknown) (no (unknown) (unknown) nguyễn I did speak (units (unknown) date) with hospitalist unknown) Lex, patient to be admitted after 2nd (unknown) (no (unknown) (unknown) droperidol (units (unk nown) date) [DROPERIDOL] Allergy unknown) Mild 'COGENIC Verified 07/12/22 14:01 (unknown) (no (unknown) (unknown) echocardiogram (units (unknown) date) done. It has taken a unknown) while for this order to be organized and it (unknown) (no (unknown) (unknown) extended release (units (unknown) date) unknown) (unknown) (no (unknown) (unknown) for high blood (units (unknown) date) pressure. No unknown) diaphoresis no nausea no syncope, no dyspnea (unknown) (no (unknown) (unknown) gabapentin 600 mg (units (unknown) date) tablet 600 mg PO TID unknown) #270 tabs 05/20/22 (unknown) (no (unknown) (unknown) household members: (units (unknown) date) family unknown) (unknown) (no (unknown) (unknown) is scheduled for (units (unknown) date) next Thursday. Patient unknown) had abnormal heart catheterization as (unknown) (no (unknown) (unknown) less than 0.012 (units (unknown) date) CK-MB 0.77 D-dimer unknown) 220 (unknown) (no (unknown) (unknown) lidocaine 5 % (units ( unknown) date) topical patch 2 unknown) patch topical DAILY #30 ea 07/12/22 (unknown) (no (unknown) (unknown) metoprolol tartrate (unit s (unknown) date) 25 mg tablet 25 mg unknown) PO BID #180 tabs 04/09/22 (unknown) (no (unknown) (unknown) mg tablet (units (unkn own) date) (Percocet) tabs unknown) (unknown) (no (unknown) (unknown) morning. Patient (units (unknown) date) has baseline chronic unknown) cervical degenerative disc disease pain (unknown) (no (unknown) (unknown) new. Patient has (units (unknown) date) had abnormal unknown) exercise stress test June 2022 when he was (unknown) (no (unknown) (unknown) oxycodone-acetamino (unit s (unknown) date) phen 5 mg-325 2 tab unknown) PO Q6H PRN pain 7 days #30 09/10/22 (unknown) (no (unknown) (unknown) rales, or rhonchi. (units (unknown) date) unknown) (unknown) (no (unknown) (unknown) release (units (unkno wn) date) unknown) (unknown) (no (unknown) (unknown) sertraline 50 mg (units (unknown) date) tablet 50 mg PO unknown) DAILY #90 tabs 04/09/22 (unknown) (no (unknown) (unknown) tabs (units (unkno wn) date) unknown) (unknown) (no (unknown) (unknown) test history of (units (unknown) date) abnormal heart unknown) catheterization (unknown) (no (unknown) (unknown) that radiates to (units (unknown) date) his left arm which unknown) is not new. However the left chest pain is (unknown) (no (unknown) (unknown) tobacco type: (units ( unknown) date) cigarettes unknown) (unknown) (no (unknown) (unknown) troponin to be (units (unknown) date) drawn. unknown) (unknown) (no (unknown) (unknown) well in 2018. Blood (unit s (unknown) date) pressure and heart unknown) rate noted. Patient is on metoprolol (unknown) (no (unknown) (unknown) with cardiology (units (unknown) date) services unknown) Social History date description facility 2022-07-12 00:00 Smokes tobacco daily (finding) [facility] 2022-09-09 00:00 Smokes tobacco daily (finding) [facility] Vital Signs date measurement value units 2022-07-12 00:00 BMI 32.5 kg/m2 2022-07-12 00:00 BP_diastolic 83 mmHg 2022-07-12 00:00 BP_systolic 136 mmHg 2022-07-12 00:00 heart_rate 86 /min 2022-07-12 00:00 height_metric 182.88 cm 2022-07-12 00:00 height_standard 72 in 2022-07-12 00:00 o2_saturation 97 % 2022-07-12 00:00 respiration_rate 15 /min 2022-07-12 00:00 temperature_metric 36.89 C 2022-07-12 00:00 temperature_standard 98.4 F 2022-07-12 00:00 weight_metric 108.86 kg 2022-07-12 00:00 weight_standard 240 lb 2022-09-09 00:00 BMI 33.9 kg/m2 2022-09-09 00:00 BP_diastolic 80 mmHg 2022-09-09 00:00 BP_systolic 146 mmHg 2022-09-09 00:00 heart_rate 77 /min 2022-09-09 00:00 height_metric 182.88 cm 2022-09-09 00:00 height_standard 72 in 2022-09-09 00:00 o2_saturation 95 % 2022-09-09 00:00 respiration_rate 14 /min 2022-09-09 00:00 temperature_metric 36.72 C 2022-09-09 00:00 temperature_standard 98.1 F 2022-09-09 00:00 weight_metric 113.39 kg 2022-09-09 00:00 weight_standard 249.98 lb 2022-09-10 00:00 BP_diastolic 59 mmHg 2022-09-10 00:00 BP_systolic 120 mmHg 2022-09-10 00:00 heart_rate 77 /min 2022-09-10 00:00 o2_saturation 94 % 2022-09-10 00:00 respiration_rate 18 /min 2022-09-10 00:00 temperature_metric 36.72 C 2022-09-10 00:00 temperature_standard 98.1 F
[2022-09-27] MEDS ORDERED: predniSONE 20 MG TABLET PO STA (16:30)
[2022-09-27] MEDS ORDERED: oxyCODONE 5 MG TABLET PO STA (16:30)
--- NOTE | 2022-09-27 16:31 | ED Physician Documentation ---
History of Present Illness - Stated complaint Stated Complaint: LT SIDE NECK PX - Chief complaint Chief Complaint: Back Pain - History obtained from History obtained from: Patient - Additonal information Additional information: 52-year-old gentleman with recent admission to [facility] for chest pain. That was about 2 or 3 weeks ago. During that admission he had a full cardiac work-up which was negative but it was found that the pain was referred from herniated disks in his neck. He is seeing Dr. Dickerson in [place] and planning for surgery. His pain was controlled up until last few days and now has increased left-sided neck pain with worsening numbness in the left arm. No right-sided symptoms. No saddle anesthesia. No fevers. PD PAST MEDICAL HISTORY - Past Medical History Cardiovascular: Hypertension, High cholesterol, Coronary artery disease, Angina Respiratory: Asthma Neuro: Headaches Endocrine/Autoimmune: Type 2 diabetes GI: GERD : None HEENT: None Psych: Depression, Anxiety, ADD/ADHD Musculoskeletal: Chronic back pain, Other Derm: None - Past Surgical History Past Surgical History: Yes Ortho: Spine surgery Cardiovascular: Cardiac catheterization - Present Medications Home Medications: Ambulatory Orders Medication Instructions Recorded Confirmed Metoprolol Succinate 50 mg PO BID 01/04/18 12/17/21 Albuterol Sulfate [Albuterol 1 - 2 puffs IH Q4HR PRN 06/04/20 12/17/21 Sulfate Hfa] Sertraline [Zoloft] 50 mg PO DAILY 07/12/20 12/17/21 Aspirin EC [Ecotrin] 81 mg ORAL DAILY 09/05/20 12/17/21 Acetaminophen [Tylenol] 650 mg PO Q6H PRN #40 tab 12/25/20 12/17/21 Gabapentin [Neurontin] 300 mg PO TID #12 cap 12/17/21 Oxycodone HCl/Acetaminophen 1 - 2 each PO Q6H PRN #14 tablet 09/27/22 [Percocet 5-325 mg Tablet] predniSONE [Deltasone] 20 mg PO [id number] #21 tab 09/27/22 - Allergies Allergies/Adverse Reactions: Allergies Allergy/AdvReac Type Severity Reaction Status Date / Time droperidol AdvReac Unknown Verified 09/27/22 16:07 - Social History Does the pt smoke?: Yes Smoking Status: Current every day smoker Does the pt drink ETOH?: Yes Does the pt have substance abuse?: No - Immunizations Immunizations are current?: Yes - POLST Patient has POLST: No POLST Status: Full Code PD ED PE NORMAL - Vitals Vital signs reviewed: Yes - General General: Alert and oriented X 3, No acute distress - Neck Neck: Supple, no meningeal sign, No bony TTP - Neuro Neuro: Alert and oriented X 3, Normal speech Results - Vitals Vitals: Vital Signs - 24 hr 09/27/22 16:00 Temperature 36.3 C L Heart Rate 115 H Respiratory 18 Rate Blood Pressure 149/100 H O2 Saturation 97 Oxygen O2 Source Room air PD Medical Decision Making - ED course ED course: 52-year-old gentleman with exacerbation of cervical radiculopathy here for some pain control pending surgery. Departure - Departure Disposition: 01 Home, Self Care Clinical Impression: Cervical radiculopathy Condition: Good Record reviewed to determine appropriate education?: Yes Instructions: ED Cervical Radiculopathy Prescriptions: predniSONE [Deltasone] 20 mg PO [id number] #21 tab Oxycodone HCl/Acetaminophen [Percocet 5-325 mg Tablet] 1 - 2 each PO Q6H PRN #14 tablet PRN Reason: pain Comments: I sent your prescriptions electronically to the [facility] in [place]. You can continue your current medications with them. Follow-up with your spine surgeon, next available appointment. I am prescribing a short course of narcotic pain medication for you. These are potentially dangerous and addictive medications that should be used carefully. These medications may constipate you. Take an [id number] stool softener (docusate) twice daily with plenty of water while taking these medications. If you go 24 hours without a bowel movement, take [id number] miralax, per package instructions. Do not drink or drive while taking these medications. If you received narcotic or sedating medications while in the emergency department, do not drive for 24 hours. Store this medication in a safe, secure place and out of reach of children. It is a violation of federal law to give or sell this medication to another person or to use in a manner other than prescribed. The ED will not refill narcotic prescriptions, including prescriptions lost or stolen. To dispose of unwanted medications: 1. [facility] at [address] in [place] has a medication drop box. They accept prescription medications (in pill form) Thursday through Thursday 9:00 a.m. to 5:00 p.m. 2. [facility] accepts prescription medications (in pill form only) for disposal year round. Call for more information. 3. Contact the [facility] for the next [facility] sponsored prescription drug collection event. , [phone], or [phone]; Note that many narcotic pain relievers also contain Tylenol/acetaminophen. Please ensure that your total dose of acetaminophen from all sources does not exceed 3 g (3000 mg) per day.
== END 2022-09-27 17:04 | disposition home or self-care (01) ==
LOC: ED 15:44
DX: M54.12 Radiculopathy, cervical region (principal); F17.200 Nicotine dependence, unspecified, uncomplicated
CPT/HCPCS: 99282; 99283; A9270; J7512

== ENCOUNTER 2022-10-11 23:08 | Emergency (ER) | payer MEDICAID ==
--- OUTSIDE RECORDS SUMMARY | 2022-10-11 23:30 | EXTERNAL MEDICAL SUMMARY RPT | Continuity of Care Document ---
:1970 Author Organization [facility] Address [address] [place] [address] Phone Care Team Providers Name Role Phone Unavailable Unavailable Unavailable [facility] Unavailable Unavailable Allergies and Intolerances date description facility type (no date) [facility] (unknown) Encounters No information. Functional Status No information. Immunizations No information. Medications date description facility 2022-09-09 00:00 [facility]one[facility]Acetaminophen [facility] 2022-09-10 00:00 Oxycodone-Acetaminophen [facility] 2022-09-10 00:00 Prednisone [facility] Problems date description facility 2022-09-09 00:00 Chest pain [facility] 2022-09-10 08:37 Chest pain, unspecified [facility] 2022-09-10 09:58 Chest pain, unspecified [facility] 2022-09-10 12:49 Chest pain, unspecified [facility] 2022-09-10 13:08 Chest pain, unspecified [facility] 2022-09-10 13:09 Chest pain, unspecified [facility] 2022-09-10 16:24 Chest pain, unspecified [facility] 2022-09-11 08:54 Chest pain, unspecified [facility] 2022-09-12 11:07 Chest pain, unspecified [facility] 2022-09-12 11:50 Chest pain, unspecified [facility] Procedures date description facility 2022-09-09 00:00 NM SPECT imaging myocard perfus w [facility] incl rest, stress and redistrib 2022-09-09 00:00 X-ray of chest, single view [facility] Results/Labs test date author facility value unit interpret ation Result panel 1 (unknown) (no date) (unknown) [facility] ([facility] (units (unk now) [facility] unknown) Result panel 2 (unknown) (no [...] (unknown) date) signed by Michelle Dupont unknown) [employer]> (unknown) (no (unknown) (unknown) <Gege Soto DO (unit s (unknown) date) - Last Filed: unknown) 07/14/22 08:11> (unknown) (no (unknown) (unknown) <Michelle Wilson, (units (unknown) date) [employer] - Last Filed: unknown) 07/12/22 16:42> (unknown) (no (unknown) (unknown) (Lidoderm) (units (unk nown) date) unknown) (unknown) (no (unknown) (unknown) *If you do not have (unit s (unknown) date) a primary care unknown) provider please contact [phone] to (unknown) (no (unknown) (unknown) *Please continue [...] time he (unknown) (no (unknown) (unknown) [address] (units (unknown) date) unknown) (unknown) (no [...] date) unknown) (unknown) (no (unknown) (unknown) : [id number] (units (u nknown) date) unknown) (unknown) (no (unknown) (unknown) ? (units (unkno wn) date) unknown) (unknown) (no (unknown) (unknown) ADD (attention (units (unknown) date) deficit disorder) unknown) (unknown) (no (unknown) (unknown) [facility] MD (units (unknown) date) [Primary Care unknown) Provider] (unknown) (no (unknown) (unknown) Accession Number: (units (unknown) date) [id number] ?? unknown) (unknown) (no (unknown) (unknown) Accession Number: (units (unknown) date) [id number] ?? unknown) (unknown) (no (unknown) (unknown) Acct:[id number] (units (unknown) date) unknown) (unknown) (no (unknown) (unknown) Acct:[id number] (units (unknown) date) unknown) (unknown) (no (unknown) (unknown) Activity (units (unkno wn) date) Restrictions/Additio unknown) nal Instructions: (unknown) (no (unknown) (unknown) Age/Sex: 52 / M (units (unknown) date) unknown) (unknown) (no (unknown) (unknown) Allergies (units (unkn own) date) unknown) (unknown) (no (unknown) (unknown) Allergy/AdvReac (units (unknown) date) Type Severity unknown) Reaction Status Date / Time (unknown) (no (unknown) (unknown) [place] [address] (unit s (unknown) date) unknown) (unknown) (no [...] (unknown) Bones:? 5 (units (unkn own) date) ejw-amf-tyqdjoc unknown) vertebrae are present.? There is normal bony (unknown) (no (unknown) (unknown) CARDIAC STRESS:? (units (unknown) date) The patient unknown) underwent exercise stress test under the (unknown) (no (unknown) (unknown) COMPARISON:? [facility] (unit s (unknown) date) [facility], , XR unknown) LUMBAR SPINE 2-3V, [...] (unknown) (unknown) : 1970 (units (unknown) date) Acct:[id number] unknown) (unknown) (no (unknown) (unknown) : 1970 [...] for consultation. Documentation (unknown) (no (unknown) (unknown) Michelle Jon, (units (unknown) date) LEATHA, personally unknown) performed [...] Cervical Radiculopathy, Lumbar (unknown) (no (unknown) (unknown) [facility] (units (unknown) date) [address] [place] [address] unknown) [place] [address] (unknown) (no (unknown) (unknown) [facility] (units (unknown) date) unknown) (unknown) (no (unknown) [...] MIPS criteria. (unknown) (no (unknown) (unknown) MR#: [id number] (units (unknown) date) unknown) (unknown) (no (unknown) (unknown) April Alonso II (unit s (unknown) date) - [...] (unknown) (unknown) Patient: Celeste (units (unknown) date) IIApril MR# unknown) (unknown) (no (unknown) (unknown) Patient: Celeste (units (unknown) date) IIApril unknown) (unknown) (no (unknown) (unknown) Peripheral (units (unk nown) date) neuropathy unknown) (unknown) (no (unknown) (unknown) Portions of this (units (unknown) date) chart have been unknown) created with [employer] voice recognition software. (unknown) (no (unknown) (unknown) [...] wn) date) unknown) (unknown) (no (unknown) (unknown) [facility] (units ( unknown) date) Hospital when to unknown) schedule his neck surgery.? Patient states left (unknown) (no (unknown) (unknown) [facility] (units ( unknown) date) Hospital.? 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 But no [place]. unknown) heart catheterization was done over at [...] discussed today?s findings whom verbalize Result panel 606 (unknown) (no (unknown) (unknown) (no value) (units (unk nown) date) unknown) (unknown) (no (unknown) (unknown) #: [id number] (units ( unknown) date) unknown) (unknown) (no (unknown) (unknown) 09/09/22 (units (unkno wn) date) unknown) (unknown) (no (unknown) (unknown) [address] [place] [address] (units (unknown) date) unknown) (unknown) (no (unknown) (unknown) Accession Number: (units (unknown) date) [id number] unknown) (unknown) (no (unknown) (unknown) Age/Sex: 52 / M (units (unknown) date) Date of Service: unknown) (unknown) (no (unknown) (unknown) [place] (units ( unknown) date) [address] unknown) (unknown) (no (unknown) (unknown) Approved by: Vijay (units (unknown) date) Alex Brewster on unknown) 09/09/2022 at 17:01 (unknown) (no (unknown) (unknown) Bones and chest (units (unknown) date) wall: No unknown) suspicious bony lesions. Overlying soft tissues (unknown) (no (unknown) (unknown) COMPARISON: (units (un known) date) [facility], unknown) CR, XR CHEST 1V, 06/16/2022, 21:18. [facility] (unknown) (no (unknown) (unknown) : 1970 (units (unknown) date) Acct:[id number] unknown) (unknown) (no (unknown) (unknown) Dictated by: [...] chest pain unknown) (unknown) (no (unknown) (unknown) [facility] (units (unknown) date) unknown) (unknown) (no (unknown) [...] (unknown) (unknown) Patient: Celeste (units (unknown) date) IIApril MR unknown) (unknown) (no (unknown) (unknown) Procedure: [...] (units ( unknown) date) unknown) Result panel 607 (unknown) (no date) (unknown) (unknown) 0.9 % [...] (unknown) 91.2 fl (unkn own) Result panel 608 (unknown) (no date) (unknown) (unknown) 1.0 (units unknown) (unknown) (unknown) (no date) (unknown) (unknown) 11.1 seconds (unkn own) (unknown) (no date) (unknown) (unknown) 32 seconds (unkn own) (unknown) (no date) (unknown) (unknown) 32 seconds (unkn own) Result panel 609 (unknown) (no date) (unknown) (unknown) > 60 [...] (unknown) 9.5 mg/dl (unkn own) Result panel 610 (unknown) (no date) (unknown) (unknown) 220 ng/ml (unkn own) (unknown) (no date) (unknown) (unknown) 220 ng/ml (unkn own) Result panel 611 (unknown) (no date) (unknown) (unknown) > 60 [...] (unknown) 9.5 mg/dl (unkn own) Result panel 612 (unknown) (no (unknown) (unknown) [...] date) unknown) (unknown) (no (unknown) (unknown) : [id number] (units (u nknown) date) unknown) (unknown) (no [...] Blood Pressure (units (unknown) date) 177/98 H 03 unknown) 15:54 (unknown) (no (unknown) (unknown) Blood [...] (unknown) (unknown) : 1970 (units (unknown) date) Acct:[id number] unknown) (unknown) (no (unknown) (unknown) Data collected [...] Hx of cervical (units (unknown) date) discectomy (-2014) unknown) (unknown) (no (unknown) (unknown) Hyperlipidemia (units [...] date) Signs: unknown) (unknown) (no (unknown) (unknown) [facility] (units (unknown) date) [address] unknown) [place] [address] (unknown) (no (unknown) (unknown) Lab Data (units [...] (unknown) Lymph # (Auto) (units (unknown) date) (9310-6063) /uL unknown) (unknown) (no (unknown) (unknown) Lymph # (Auto) 1300 (unit s (unknown) date) (2279-6743) /uL unknown) (unknown) (no (unknown) (unknown) Lymph [...] date) Ambulatory unknown) (unknown) (no (unknown) (unknown) Foster # (Auto) (units ( unknown) date) (0-900) /uL unknown) (unknown) (no (unknown) (unknown) Foster # (Auto) 500 (units (unknown) date) (0-900) /uL unknown) (unknown) (no (unknown) (unknown) Foster % (Auto) (units ( unknown) date) (3-14) % unknown) (unknown) (no (unknown) (unknown) Foster % (Auto) 5.5 (units (unknown) date) (3-14) [...] Neut # (Auto) (units ( unknown) date) (2328-9296) /uL unknown) (unknown) (no (unknown) (unknown) Neut # (Auto) 6400 (units (unknown) date) (8563-5423) /uL unknown) (unknown) (no (unknown) (unknown) Neut [...] (no (unknown) (unknown) Patient: (units (unknown) date) IIApril MR# unknown) (unknown) (no (unknown) (unknown) Peripheral [...] date) unknown) (unknown) (no (unknown) (unknown) angina [place] non-STEMI (unit s (unknown) date) PE hypertensive [...] noted. Patient is on metoprolol Result panel 613 (unknown) (no date) (unknown) (unknown) Negative (units (unkn own) unknown) (unknown) (no date) (unknown) (unknown) Negative (units (unkn own) unknown) Result panel 614 (unknown) (no (unknown) (unknown) (no value) (units [...] date) unknown) (unknown) (no (unknown) (unknown) : [id number] (units (u nknown) date) unknown) (unknown) (no [...] unknown) (unknown) (no (unknown) (unknown) Clinical (units ( wn) date) Impression: unknown) (unknown) (no (unknown) [...] unknown) (unknown) (no (unknown) (unknown) Course (units ( wn) date) unknown) (unknown) (no (unknown) (unknown) Creatinine (units () date) (0.66-1.25) mg/dL unknown) (unknown) (no (unknown) (unknown) Creatinine 0.77 (units (unknown) date) (0.66-1.25) mg/dL unknown) (unknown) (no (unknown) (unknown) D Dimer Stat (units (u nknown) date) unknown) (unknown) (no (unknown) (unknown) D-Dimer (<500) (units (unknown) date) ng/ml unknown) (unknown) (no (unknown) (unknown) D-Dimer 220 (<500) (units (unknown) date) ng/ml unknown) (unknown) (no (unknown) (unknown) : 1970 (units (unknown) date) Acct:[id number] unknown) (unknown) (no (unknown) (unknown) Data collected [...] date) Signs: unknown) (unknown) (no (unknown) (unknown) [facility] (units (unknown) date) [address] unknown) [place] [address] (unknown) (no (unknown) (unknown) Lab Data (units [...] (unknown) Lymph # (Auto) (units (unknown) date) (9706-9227) /uL unknown) (unknown) (no (unknown) (unknown) Lymph # (Auto) 1300 (unit s (unknown) date) (9600-2474) /uL unknown) (unknown) (no (unknown) (unknown) Lymph [...] date) Ambulatory unknown) (unknown) (no (unknown) (unknown) Foster # (Auto) (units ( unknown) date) (0-900) /uL unknown) (unknown) (no (unknown) (unknown) Foster # (Auto) 500 (units (unknown) date) (0-900) /uL unknown) (unknown) (no (unknown) (unknown) Foster % (Auto) (units ( unknown) date) (3-14) % unknown) (unknown) (no (unknown) (unknown) Foster % (Auto) 5.5 (units (unknown) date) (3-14) [...] Neut # (Auto) (units ( unknown) date) (8973-0650) /uL unknown) (unknown) (no (unknown) (unknown) Neut # (Auto) 6400 (units (unknown) date) (9919-2442) /uL unknown) (unknown) (no (unknown) (unknown) Neut [...] (no (unknown) (unknown) Patient: (units (unknown) date) IIApril MR# unknown) (unknown) (no (unknown) (unknown) Peripheral [...] date) unknown) (unknown) (no (unknown) (unknown) angina [place] non-STEMI (unit s (unknown) date) PE hypertensive unknown) urgency (unknown) (no (unknown) (unknown) aspirin 81 mg (units ( unknown) date) tablet,delayed 81 mg unknown) PO DAILY 10/07/22 11/15/22 (unknown) (no (unknown) (unknown) aspirin 81 mg [...] noted. Patient is on metoprolol Result panel 615 (unknown) (no (unknown) (unknown) (no value) (units [...] date) unknown) (unknown) (no (unknown) (unknown) : [id number] (units (u nknown) date) unknown) (unknown) (no [...] (unknown) (unknown) : 1970 (units (unknown) date) Acct:[id number] unknown) (unknown) (no (unknown) (unknown) Data collected [...] date) Signs: unknown) (unknown) (no (unknown) (unknown) [facility] (units (unknown) date) [address] [place] [address] unknown) [place] [address] (unknown) (no (unknown) (unknown) Lab Data (units [...] (unknown) Lymph # (Auto) (units (unknown) date) (0294-4798) /uL unknown) (unknown) (no (unknown) (unknown) Lymph # (Auto) 1300 (unit s (unknown) date) (8402-5716) /uL unknown) (unknown) (no (unknown) (unknown) Lymph [...] date) Ambulatory unknown) (unknown) (no (unknown) (unknown) Foster # (Auto) (units ( unknown) date) (0-900) /uL unknown) (unknown) (no (unknown) (unknown) Foster # (Auto) 500 (units (unknown) date) (0-900) /uL unknown) (unknown) (no (unknown) (unknown) Foster % (Auto) (units ( unknown) date) (3-14) % unknown) (unknown) (no (unknown) (unknown) Foster % (Auto) 5.5 (units (unknown) date) (3-14) [...] Neut # (Auto) (units ( unknown) date) (3142-9556) /uL unknown) (unknown) (no (unknown) (unknown) Neut # (Auto) 6400 (units (unknown) date) (4193-3389) /uL unknown) (unknown) (no (unknown) (unknown) Neut [...] (no (unknown) (unknown) Patient: (units (unknown) date) IIApril L MR# unknown) (unknown) (no (unknown) (unknown) [...] date) unknown) (unknown) (no (unknown) (unknown) angina [place] non-STEMI (unit s (unknown) date) PE hypertensive [...] noted. Patient is on metoprolol Result panel 616 (unknown) (no date) (unknown) (unknown) 149 u/l (unkn own) Result panel 617 (unknown) (no date) (unknown) (unknown) < 0.012 ng/ml (unkn own) (unknown) (no date) (unknown) (unknown) < 0.012 ng/ml (unkn own) (unknown) (no date) (unknown) (unknown) 149 u/l (unkn own) Result panel 618 (unknown) (no date) (unknown) (unknown) < 0.012 ng/ml (unkn own) (unknown) (no date) (unknown) (unknown) < 0.012 ng/ml (unkn own) (unknown) (no date) (unknown) (unknown) 0.5 % (unkn own) (unknown) (no date) (unknown) (unknown) 0.69 ng/ml (unkn own) (unknown) (no date) (unknown) (unknown) 149 u/l (unkn own) Result panel 619 (unknown) (no (unknown) (unknown) (no value) (units (unk nown) date) unknown) (unknown) (no (unknown) (unknown) 'Current (units (unkno wn) date) medications' to unknown) include all prescriptions, peow-lro-fgececc products, (unknown) (no (unknown) (unknown) (Lidoderm) (units [...] date) unknown) (unknown) (no (unknown) (unknown) : [id number] (units (u nknown) date) unknown) (unknown) (no [...] (unknown) (unknown) : 1970 (units (unknown) date) Acct:[id number] unknown) (unknown) (no (unknown) (unknown) Date of [...] in 110s, o2 (unknown) (no (unknown) (unknown) [facility] (units (unknown) date) [address] unknown) [place] [address] (unknown) (no (unknown) (unknown) Laboratory Results (units [...] wn) date) unknown) (unknown) (no (unknown) (unknown) Foster # (Auto) 500 (units (unknown) date) unknown) (unknown) (no (unknown) (unknown) Foster # (Auto) (units ( unknown) date) unknown) (unknown) (no (unknown) (unknown) Foster % (Auto) 5.5 (units (unknown) date) unknown) (unknown) (no (unknown) (unknown) Foster % (Auto) (units ( unknown) date) unknown) [...] (no (unknown) (unknown) Patient: (units (unknown) date) II,April L MR# unknown) (unknown) (no (unknown) (unknown) [...] (unknown) Proxy: Ada (units (u nknown) date) Emekan, life unknown) partner (unknown) (no (unknown) (unknown) [...] exclusive of unknown) procedural time. Result panel 620 (unknown) (no (unknown) (unknown) (no value) (units (unk nown) date) unknown) (unknown) (no (unknown) (unknown) 'Current (units (unkno wn) date) medications' to unknown) include all prescriptions, oaiw-zob-mmptwih products, (unknown) (no (unknown) (unknown) (Lidoderm) (units [...] date) unknown) (unknown) (no (unknown) (unknown) : [id number] (units (u nknown) date) unknown) (unknown) (no [...] (unknown) (unknown) : 1970 (units (unknown) date) Acct:[id number] unknown) (unknown) (no (unknown) (unknown) Date of [...] in 110s, o2 (unknown) (no (unknown) (unknown) [facility] (units (unknown) date) [address] unknown) [place] [address] (unknown) (no (unknown) (unknown) Laboratory Results (units [...] wn) date) unknown) (unknown) (no (unknown) (unknown) Foster # (Auto) 500 (units (unknown) date) unknown) (unknown) (no (unknown) (unknown) Foster # (Auto) (units ( unknown) date) unknown) (unknown) (no (unknown) (unknown) Foster % (Auto) 5.5 (units (unknown) date) unknown) (unknown) (no (unknown) (unknown) Foster % (Auto) (units ( unknown) date) unknown) [...] exclusive of unknown) procedural time. Result panel 621 (unknown) (no (unknown) (unknown) (no value) (units (unk nown) date) unknown) (unknown) (no (unknown) (unknown) #: [id number] (units ( unknown) date) unknown) (unknown) (no (unknown) (unknown) 09/09/22 (units (unkno wn) date) unknown) (unknown) (no (unknown) (unknown) [address] [place] [address] (units (unknown) date) unknown) (unknown) (no (unknown) (unknown) 98 mL. (units (unkno wn) date) unknown) (unknown) (no (unknown) (unknown) A pharmacologic (units (unknown) date) stress test was unknown) performed under the supervision of an attending (unknown) (no (unknown) (unknown) Accession Number: (units (unknown) date) [id number] unknown) (unknown) (no (unknown) (unknown) Age/Sex: 52 / M Date (uni ts (unknown) date) of Service: unknown) (unknown) (no (unknown) (unknown) Aminophylline: none (unit s (unknown) date) unknown) (unknown) (no (unknown) (unknown) [place], [place] [address] (unit s (unknown) date) unknown) (unknown) (no (unknown) (unknown) Approved by: Jim (unit s (unknown) date) Carl KIMBROUGH on unknown) 09/10/2022 at 15:36 (unknown) (no (unknown) (unknown) CARDIAC STRESS: (units (unknown) date) unknown) (unknown) (no (unknown) (unknown) COMPARISON: None. (units (unknown) date) unknown) (unknown) (no (unknown) (unknown) : 1970 (units (unknown) date) Acct:[id number] unknown) (unknown) (no (unknown) (unknown) Dictated by: [...] date) pain unknown) (unknown) (no (unknown) (unknown) [facility] (units (unknown) date) unknown) (unknown) (no (unknown) [...] PHARM unknown) (unknown) (no (unknown) (unknown) Patient: Celeste (units (unknown) date) IIApril L MR unknown) (unknown) (no (unknown) (unknown) [...] pain. (unknown) (no (unknown) (unknown) TECHNIQUE: (units (k n) ) Radiopharmaceutical unknown) was injected at peak stress test, and also at (unknown) (no (unknown) (unknown) and systolic (units (u nknown) date) function (EF post unknown) stress 73%). (unknown) (no (unknown) (unknown) and (units (unkno wn) date) unknown) (unknown) (no (unknown) (unknown) artifacts. (units () ) Cfwf-wd-emmys ratio unknown) is 0.27 (normal is less [...] date) peak effect of unknown) pharmacological stress. Yxe-brg-autwdgmh was (unknown) (no (unknown) (unknown) tetrafosmin (units [...] unknown) or reversible perfusion defects. Result panel 622 (unknown) (no (unknown) (unknown) (no value) (units (unk nown) date) unknown) (unknown) (no (unknown) (unknown) 'Current (units (unkno wn) date) medications' to unknown) include all prescriptions, yjwq-gzc-teufico products, (unknown) (no (unknown) (unknown) (Lidoderm) (units [...] date) unknown) (unknown) (no (unknown) (unknown) : [id number] (units (u nknown) date) unknown) (unknown) (no [...] (unknown) (unknown) : 1970 (units (unknown) date) Acct:[id number] unknown) (unknown) (no (unknown) (unknown) Date of [...] in 110s, o2 (unknown) (no (unknown) (unknown) [facility] (units (unknown) date) [address] unknown) [place] [address] (unknown) (no (unknown) (unknown) Laboratory Results (units [...] wn) date) unknown) (unknown) (no (unknown) (unknown) Foster # (Auto) 500 (units (unknown) date) unknown) (unknown) (no (unknown) (unknown) Foster # (Auto) (units ( unknown) date) unknown) (unknown) (no (unknown) (unknown) Foster % (Auto) 5.5 (units (unknown) date) unknown) (unknown) (no (unknown) (unknown) Foster % (Auto) (units ( unknown) date) unknown) [...] (unknown) (unknown) Patient: Celeste (units (unknown) date) IIApril L MR# unknown) (unknown) (no (unknown) (unknown) [...] exclusive of unknown) procedural time. Result panel 623 (unknown) (no (unknown) (unknown) (no value) (units (unk nown) date) unknown) (unknown) (no (unknown) (unknown) > 09/09/22 2203 (units (unknown) date) unknown) (unknown) (no (unknown) (unknown) 'Current (units (unkno wn) date) medications' to unknown) include all prescriptions, xcsy-qgo-elntubl products, (unknown) (no (unknown) (unknown) (Lidoderm) (units [...] date) unknown) (unknown) (no (unknown) (unknown) : [id number] (units (u nknown) date) unknown) (unknown) (no [...] Documented (unit s (unknown) date) By: Daniel Hector, unknown) (unknown) (no (unknown) (unknown) Addendum Signed [...] (unknown) (unknown) : 1970 (units (unknown) date) Acct:[id number] unknown) (unknown) (no (unknown) (unknown) Date of [...] in 110s, o2 (unknown) (no (unknown) (unknown) [facility] (units (unknown) date) [address] unknown) [place] [address] (unknown) (no (unknown) (unknown) Laboratory Results (units [...] wn) date) unknown) (unknown) (no (unknown) (unknown) Foster # (Auto) 500 (units (unknown) date) unknown) (unknown) (no (unknown) (unknown) Foster # (Auto) (units ( unknown) date) unknown) (unknown) (no (unknown) (unknown) Foster % (Auto) 5.5 (units (unknown) date) unknown) (unknown) (no (unknown) (unknown) Foster % (Auto) (units ( unknown) date) unknown) [...] 2130. unknown) (unknown) (no (unknown) (unknown) Patient: Celeste (units (unknown) date) II,April L MR# unknown) (unknown) (no (unknown) (unknown) [...] exclusive of unknown) procedural time. Result panel 624 (unknown) (no date) (unknown) (unknown) Not Detected (units ( unknown) unknown) Result panel 625 (unknown) (no date) (unknown) (unknown) 0 /ul [...] (unknown) 91.7 fl (unkn own) Result panel 626 (unknown) (no date) (unknown) (unknown) > 60 [...] (unknown) 9.4 mg/dl (unkn own) Result panel 627 (unknown) (no date) (unknown) (unknown) > 60 [...] (unknown) 9.4 mg/dl (unkn own) Result panel 628 (unknown) (no (unknown) (unknown) [...] date) unknown) (unknown) (no (unknown) (unknown) : [id number] (units (u nknown) date) unknown) (unknown) (no [...] (unknown) (unknown) : 1970 (units (unknown) date) Acct:[id number] unknown) (unknown) (no (unknown) (unknown) Date Patient [...] in 110s, o2 (unknown) (no (unknown) (unknown) [facility] (units (unknown) date) [address] unknown) [place] [address] (unknown) (no (unknown) (unknown) [facility] MD [...] Daniel Hector MD) (unknown) (no (unknown) (unknown) Foster # (Auto) 500 (units (unknown) date) unknown) (unknown) (no (unknown) (unknown) Foster # (Auto) 700 (units (unknown) date) unknown) (unknown) (no (unknown) (unknown) Foster # (Auto) (units ( unknown) date) unknown) (unknown) (no (unknown) (unknown) Foster % (Auto) 5.5 (units (unknown) date) unknown) (unknown) (no (unknown) (unknown) Foster % (Auto) 9.1 (units (unknown) date) unknown) (unknown) (no (unknown) (unknown) Foster % (Auto) (units ( unknown) date) unknown) [...] admitted for unknown) further treatment. Result panel 629 (unknown) (no (unknown) (unknown) [...] date) unknown) (unknown) (no (unknown) (unknown) : [id number] (units (u nknown) date) unknown) (unknown) (no [...] (unknown) (unknown) : 1970 (units (unknown) date) Acct:[id number] unknown) (unknown) (no (unknown) (unknown) Date Patient [...] in 110s, o2 (unknown) (no (unknown) (unknown) [facility] (units (unknown) date) [address] unknown) [place] [address] (unknown) (no (unknown) (unknown) [place] MD [...] Daniel Hector MD) (unknown) (no (unknown) (unknown) Foster # (Auto) 500 (units (unknown) date) unknown) (unknown) (no (unknown) (unknown) Foster # (Auto) 700 (units (unknown) date) unknown) (unknown) (no (unknown) (unknown) Foster # (Auto) (units ( unknown) date) unknown) (unknown) (no (unknown) (unknown) Foster % (Auto) 5.5 (units (unknown) date) unknown) (unknown) (no (unknown) (unknown) Foster % (Auto) 9.1 (units (unknown) date) unknown) (unknown) (no (unknown) (unknown) Foster % (Auto) (units ( unknown) date) unknown) [...] (no (unknown) (unknown) Patient: (units (unknown) date) IIApril MR# unknown) (unknown) (no (unknown) (unknown) Per [...] (units (unkno wn) date) unknown) Result panel 630 (unknown) (no (unknown) (unknown) (no value) (units [...] date) unknown) (unknown) (no (unknown) (unknown) : [id number] (units (u nknown) date) unknown) (unknown) (no [...] (unknown) Admit Provider: (units (unknown) date) Daniel Hector unknown) (unknown) (no (unknown) (unknown) After history and [...] (unknown) (unknown) : 1970 (units (unknown) date) Acct:[id number] unknown) (unknown) (no (unknown) (unknown) Data collected [...] discectomy (-2013) unknown) (unknown) (no (unknown) (unknown) Hydromorphone HCl [...] date) Signs: unknown) (unknown) (no (unknown) (unknown) [facility] (units (unknown) date) [address] unknown) [place] [address] (unknown) (no (unknown) (unknown) Lab Data (units [...] (unknown) Lymph # (Auto) (units (unknown) date) ([id number]) /uL unknown) (unknown) (no (unknown) (unknown) Lymph # (Auto) 1300 (unit s (unknown) date) (4835-9635) /uL unknown) (unknown) (no (unknown) (unknown) Lymph [...] date) Ambulatory unknown) (unknown) (no (unknown) (unknown) Foster # (Auto) (units ( unknown) date) (0-900) /uL unknown) (unknown) (no (unknown) (unknown) Foster # (Auto) 500 (units (unknown) date) (0-900) /uL unknown) (unknown) (no (unknown) (unknown) Foster % (Auto) (units ( unknown) date) (3-14) % unknown) (unknown) (no (unknown) (unknown) Foster % (Auto) 5.5 (units (unknown) date) (3-14) [...] Neut # (Auto) (units ( unknown) date) (0192-8852) /uL unknown) (unknown) (no (unknown) (unknown) Neut # (Auto) 6400 (units (unknown) date) (4900-6699) /uL unknown) (unknown) (no (unknown) (unknown) Neut [...] date) unknown) (unknown) (no (unknown) (unknown) angina [place] non-STEMI (unit s (unknown) date) PE hypertensive [...] services unknown) Social History date description facility 2022-09-09 00:00 Smokes tobacco daily ([facility]) [facility] Vital Signs date measurement value units 2022-09-09 00:00 BMI 33.9 kg/m2 2022-09-09 00:00 [...]
[2022-10-12] MEDS ORDERED: KETOROLAC 30 MG/ML VIAL IM STA (00:28)
[2022-10-12] MEDS ORDERED: oxyCODONE 5 MG TABLET PO STA (00:28)
--- NOTE | 2022-10-12 00:34 | ED Physician Documentation ---
PD HPI CHEST PAIN - Stated complaint Stated Complaint: LT SIDE NECK/CHEST PX - Chief complaint Chief Complaint: Cardiac - History obtained from History obtained from: Patient - Additional information Additional information: 52-year-old man with past medical history of chronic neck and chest pain presents with neck and chest pain tonight. Patient states it started around 6 PM has not tapered off. nonexertional. radiates up from L chest to L neck. denies nausea, dizziness, fever, cough, leg swelling, hemoptysis. Review of Systems Constitutional: denies: Fever Cardiac: reports: Chest pain / pressure Respiratory: denies: Dyspnea, Cough GI: denies: Nausea Psychiatric: reports: Anxiety PD PAST MEDICAL HISTORY - Past Medical History Past Medical History: Yes Cardiovascular: Hypertension, High cholesterol, Coronary artery disease, Angina Respiratory: Asthma Neuro: Headaches Endocrine/Autoimmune: Type 2 diabetes GI: GERD : None HEENT: None Psych: Depression, Anxiety, ADD/ADHD Musculoskeletal: Chronic back pain, Other Derm: None - Past Surgical History Past Surgical History: Yes Ortho: Spine surgery Cardiovascular: Cardiac catheterization - Present Medications Home Medications: Ambulatory Orders Medication Instructions Recorded Confirmed Metoprolol Succinate 50 mg PO BID 01/04/18 12/17/21 Albuterol Sulfate [Albuterol 1 - 2 puffs IH Q4HR PRN 06/04/20 12/17/21 Sulfate Hfa] Sertraline [Zoloft] 50 mg PO DAILY 07/12/20 12/17/21 Aspirin EC [Ecotrin] 81 mg ORAL DAILY 09/05/20 12/17/21 Acetaminophen [Tylenol] 650 mg PO Q6H PRN #40 tab 12/25/20 12/17/21 Gabapentin [Neurontin] 300 mg PO TID #12 cap 12/17/21 09/27/22 Oxycodone HCl/Acetaminophen 1 - 2 each PO Q6H PRN #14 tablet 09/27/22 [Percocet 5-325 mg Tablet] predniSONE [Deltasone] 20 mg PO [id number] #21 tab 09/27/22 - Allergies Allergies/Adverse Reactions: Allergies Allergy/AdvReac Type Severity Reaction Status Date / Time droperidol AdvReac Unknown Verified 10/11/22 23:11 - Social History Does the pt smoke?: Yes Smoking Status: Current every day smoker Does the pt drink ETOH?: Yes Does the pt have substance abuse?: No - Immunizations Immunizations are current?: Yes - POLST Patient has POLST: No POLST Status: Full Code PD ED PE NORMAL - Vitals Vital signs reviewed: Yes - General General: Alert and oriented X 3, No acute distress, Well developed/nourished - HEENT HEENT: Atraumatic, PERRL, EOMI - Neck Neck: No bony TTP - Cardiac Cardiac: RRR - Respiratory Respiratory: No respiratory distress, Clear bilaterally Results - Vitals Vitals: Vital Signs - 24 hr 10/11/22 10/11/22 23:11 23:14 Temperature 36.5 C Heart Rate 100 93 Respiratory 16 20 Rate Blood Pressure 180/90 H 178/107 H O2 Saturation 99 97 Oxygen O2 Source Room air - EKG (time done) 2350 EKG releavant findings:: EKG personally interpreted by author of this note. Relevant findings are: Rate: Rate (enter#) (92) Rhythm: NSR [place]: Normal Intervals: Normal NE QRS: Normal Ischemia: Normal ST segments PD Medical Decision Making - ED course ED course: 52-year-old man history of frequent ED visits for chronic neck and chest pain, just recently worked up in August at [facility] with nuclear stress test that was negative, presents with recurrent chronic pain tonight. Chest pain is atypical and ekg is normal. exam was benign. I discussed with him that he will need to follow-up with pain management and with neurosurgery. In the interim we can only provide medication here in the emergency department and are unable to prescribe narcotic pain medicine for him. Patient understands and voices agreement. Return precautions given. Departure - Departure Disposition: 01 Home, Self Care Clinical Impression: Chronic pain Condition: Stable Instructions: ED Chronic Pain Management Comments: You are seen in the emergency department for chest pain and chronic neck pain. Please follow-up with your surgeon to address your cervical neck issues and with pain management through your primary care provider. Return to the emergency department for new or worsening symptoms or if you have other concerns.
[2022-10-12 01:02] VITALS: BP 190/103
== END 2022-10-12 01:02 | disposition home or self-care (01) ==
LOC: ED 23:08
DX: M54.2 Cervicalgia (principal); R07.9 Chest pain, unspecified; G89.29 Other chronic pain; F17.200 Nicotine dependence, unspecified, uncomplicated
CPT/HCPCS: 93005; 96372; 99283; A9270

== ENCOUNTER 2022-10-27 19:59 | Emergency (ER) | payer MEDICAID ==
--- OUTSIDE RECORDS SUMMARY | 2022-10-27 20:15 | EXTERNAL MEDICAL SUMMARY RPT | Continuity of Care Document ---
:1970 Author Organization [facility] Address [address] [place] [address] Phone Care Team Providers Name Role Phone Unavailable Unavailable Unavailable [facility] Unavailable Unavailable Allergies and Intolerances date description facility type (no date) [facility] (unknown) Encounters No information. Functional Status No information. Immunizations No information. Medications date description facility 2022-09-09 00:00 Oxycodone-Acetaminophen [facility] 2022-09-10 00:00 Oxycodone-Acetaminophen [facility] 2022-09-10 00:00 Prednisone [facility] Problems date description facility 2022-09-09 00:00 Chest pain [facility] 2022-09-10 08:37 Chest pain, unspecified [facility] 2022-09-10 09:58 Chest pain, unspecified [facility] 2022-09-10 12:49 Chest pain, unspecified [facility] 2022-09-10 13:08 Chest pain, unspecified [facility] 2022-09-10 13:09 Chest pain, unspecified [facility] 2022-09-10 16:24 Chest pain, unspecified [facility] 2022-09-11 08:54 Chest pain, unspecified [facility] 2022-09-12 11:07 Chest pain, unspecified [facility] 2022-09-12 11:50 Chest pain, unspecified [facility] Procedures date description facility 2022-09-09 00:00 NM SPECT imaging myocard perfus w [facility] incl rest, stress and redistrib 2022-09-09 00:00 X-ray of chest, single view [facility] Results/Labs test date author facility [...] Result panel 603 (unknown) (no date) (unknown) [facility] (no [facility] unknown) Result panel 604 (unknown) (no date) (unknown) [facility] (no value[facility] unknown) Result panel 605 (unknown) (no (unknown) (unknown) (no value) (units (unk nown) date) unknown) (unknown) (no (unknown) (unknown) #: [id number] (units ( unknown) date) unknown) (unknown) (no (unknown) (unknown) 09/09/22 (units (unkno wn) date) unknown) (unknown) (no (unknown) (unknown) [address] [place] [address] (units (unknown) date) unknown) (unknown) (no (unknown) (unknown) Accession Number: (units (unknown) date) [id number] unknown) (unknown) (no (unknown) (unknown) Age/Sex: 52 / M (units (unknown) date) Date of Service: unknown) (unknown) (no (unknown) (unknown) JE[place]REY [place] (units ( unknown) date) [id number] unknown) (unknown) (no (unknown) (unknown) Approved by: Vijay (units (unknown) date) Alex Brewster on unknown) 09/09/2022 at 17:01 (unknown) (no (unknown) (unknown) Bones and chest (units (unknown) date) wall: No unknown) suspicious bony lesions. Overlying soft tissues (unknown) (no (unknown) (unknown) COMPARISON: (units (un known) date) [facility], unknown) CR, XR CHEST 1V, 06/16/2022, 21:18. [facility] (unknown) (no (unknown) (unknown) : 1970 (units (unknown) date) Acct:[id number] unknown) (unknown) (no (unknown) (unknown) Dictated by: [...] chest pain unknown) (unknown) (no (unknown) (unknown) [facility] (units (unknown) date) unknown) (unknown) (no [...] (unknown) Patient: Celeste (units (unknown) date) II,April Alvarez MR unknown) (unknown) (no (unknown) (unknown) Procedure: [...] (units ( unknown) date) unknown) Result panel 606 (unknown) (no date) (unknown) (unknown) 0.9 % [...] (unknown) 91.2 fl (unkn own) Result panel 607 (unknown) (no date) (unknown) (unknown) 1.0 (units unknown) (unknown) (unknown) (no date) (unknown) (unknown) 11.1 seconds (unkn own) (unknown) (no date) (unknown) (unknown) 32 seconds (unkn own) (unknown) (no date) (unknown) (unknown) 32 seconds (unkn own) Result panel 608 (unknown) (no date) (unknown) (unknown) > 60 [...] (unknown) 9.5 mg/dl (unkn own) Result panel 609 (unknown) (no date) (unknown) (unknown) 220 ng/ml (unkn own) (unknown) (no date) (unknown) (unknown) 220 ng/ml (unkn own) Result panel 610 (unknown) (no date) (unknown) (unknown) > 60 [...] (unknown) 9.5 mg/dl (unkn own) Result panel 611 (unknown) (no (unknown) (unknown) [...] date) unknown) (unknown) (no (unknown) (unknown) : [id number] (units (u nknown) date) unknown) (unknown) (no [...] (unknown) (unknown) : 1970 (units (unknown) date) Acct:[id number] unknown) (unknown) (no (unknown) (unknown) Data collected [...] date) Signs: unknown) (unknown) (no (unknown) (unknown) [facility] (units (unknown) date) [address] unknown) [place] [address] (unknown) (no (unknown) (unknown) Lab Data (units [...] (unknown) Lymph # (Auto) (units (unknown) date) (0310-2452) /uL unknown) (unknown) (no (unknown) (unknown) Lymph # (Auto) 1300 (unit s (unknown) date) (0587-4912) /uL unknown) (unknown) (no (unknown) (unknown) Lymph [...] date) Ambulatory unknown) (unknown) (no (unknown) (unknown) Ray # (Auto) (units ( unknown) date) (0-900) /uL unknown) (unknown) (no (unknown) (unknown) Ray # (Auto) 500 (units (unknown) date) (0-900) /uL unknown) (unknown) (no (unknown) (unknown) Ray % (Auto) (units ( unknown) date) (3-14) % unknown) (unknown) (no (unknown) (unknown) Ray % (Auto) 5.5 (units (unknown) date) (3-14) [...] Neut # (Auto) (units ( unknown) date) (5986-0165) /uL unknown) (unknown) (no (unknown) (unknown) Neut # (Auto) 6400 (units (unknown) date) (2435-3559) /uL unknown) (unknown) (no (unknown) (unknown) Neut [...] date) unknown) (unknown) (no (unknown) (unknown) angina SD non-STEMI (unit s (unknown) date) PE hypertensive [...] noted. Patient is on metoprolol Result panel 612 (unknown) (no date) (unknown) (unknown) Negative (units (unkn own) unknown) (unknown) (no date) (unknown) (unknown) Negative (units (unkn own) unknown) Result panel 613 (unknown) (no (unknown) (unknown) (no value) (units [...] date) unknown) (unknown) (no (unknown) (unknown) : [id number] (units (u nknown) date) unknown) (unknown) (no [...] unknown) (unknown) (no (unknown) (unknown) Cervical (units () date) radiculopathy due to unknown) osteoarthritis of spine (unknown) (no (unknown) (unknown) Chest pain (units (unn) date) unknown) (unknown) (no (unknown) (unknown) Chief Complaint: (units (unknown) date) Chest Pain unknown) (unknown) (no (unknown) (unknown) Chloride (98-107) (units (unknown) date) mmol/L unknown) (unknown) (no (unknown) (unknown) Chloride 102 (units (u nknown) date) (98-107) mmol/L unknown) (unknown) (no (unknown) (unknown) Clinical (units () ) Impression: unknown) (unknown) (no (unknown) (unknown) Complete Blood (units (unknown) date) Count AUTO DIFF Stat unknown) (unknown) (no (unknown) (unknown) Complicating (units (u ) date) co-morbidities: unknown) History hypertension history of [...] (unknown) (unknown) : 1970 (units (unknown) date) Acct:[id number] unknown) (unknown) (no (unknown) (unknown) Data collected [...] date) Signs: unknown) (unknown) (no (unknown) (unknown) [facility] (units (unknown) date) [address] [place] [address] Street unknown) [place] [address] (unknown) (no (unknown) (unknown) Lab Data (units [...] (unknown) Lymph # (Auto) (units (unknown) date) (4323-6579) /uL unknown) (unknown) (no (unknown) (unknown) Lymph # (Auto) 1300 (unit s (unknown) date) (8385-7976) /uL unknown) (unknown) (no (unknown) (unknown) Lymph [...] date) Ambulatory unknown) (unknown) (no (unknown) (unknown) Ray # (Auto) (units ( unknown) date) (0-900) /uL unknown) (unknown) (no (unknown) (unknown) Ray # (Auto) 500 (units (unknown) date) (0-900) /uL unknown) (unknown) (no (unknown) (unknown) Ray % (Auto) (units ( unknown) date) (3-14) % unknown) (unknown) (no (unknown) (unknown) Ray % (Auto) 5.5 (units (unknown) date) (3-14) [...] Neut # (Auto) (units ( unknown) date) (9191-5528) /uL unknown) (unknown) (no (unknown) (unknown) Neut # (Auto) 6400 (units (unknown) date) (1462-2218) /uL unknown) (unknown) (no (unknown) (unknown) Neut [...] date) unknown) (unknown) (no (unknown) (unknown) angina SD non-STEMI (unit s (unknown) date) PE hypertensive [...] noted. Patient is on metoprolol Result panel 614 (unknown) (no (unknown) (unknown) [...] date) unknown) (unknown) (no (unknown) (unknown) : [id number] (units (u nknown) date) unknown) (unknown) (no [...] (unknown) (unknown) : 1970 (units (unknown) date) Acct:[id number] unknown) (unknown) (no (unknown) (unknown) Data collected [...] (unknown) ER Physician: (units ( unknown) date) Brennick,Flaco MD unknown) (unknown) (no (unknown) (unknown) EXTREMITIES: [...] date) Signs: unknown) (unknown) (no (unknown) (unknown) [facility] (units (unknown) date) [address] [place] [address] unknown) [place] [address] (unknown) (no (unknown) (unknown) Lab Data (units [...] (unknown) Lymph # (Auto) (units (unknown) date) (9473-5995) /uL unknown) (unknown) (no (unknown) (unknown) Lymph # (Auto) 1300 (unit s (unknown) date) (3745-2558) /uL unknown) (unknown) (no (unknown) (unknown) Lymph [...] date) Ambulatory unknown) (unknown) (no (unknown) (unknown) Ray # (Auto) (units ( unknown) date) (0-900) /uL unknown) (unknown) (no (unknown) (unknown) Ray # (Auto) 500 (units (unknown) date) (0-900) /uL unknown) (unknown) (no (unknown) (unknown) Ray % (Auto) (units ( unknown) date) (3-14) % unknown) (unknown) (no (unknown) (unknown) Ray % (Auto) 5.5 (units (unknown) date) (3-14) [...] Neut # (Auto) (units ( unknown) date) (2128-3919) /uL unknown) (unknown) (no (unknown) (unknown) Neut # (Auto) 6400 (units (unknown) date) (7046-8350) /uL unknown) (unknown) (no (unknown) (unknown) Neut [...] date) unknown) (unknown) (no (unknown) (unknown) angina SD non-STEMI (unit s (unknown) date) PE hypertensive [...] on metoprolol Result panel 615 (unknown) (no date) (unknown) (unknown) 149 u/l (unkn own) Result panel 616 (unknown) (no date) (unknown) (unknown) < 0.012 [...] date) medications' to unknown) include all prescriptions, tywo-qpf-tsemcko products, (unknown) (no (unknown) (unknown) (Lidoderm) (units [...] date) unknown) (unknown) (no (unknown) (unknown) : [id number] (units (u nknown) date) unknown) (unknown) (no [...] (unknown) (unknown) : 1970 (units (unknown) date) Acct:[id number] unknown) (unknown) (no (unknown) (unknown) Date of [...] in 110s, o2 (unknown) (no (unknown) (unknown) [facility] (units (unknown) date) [address] unknown) [place] [address] (unknown) (no (unknown) (unknown) Laboratory Results (units [...] wn) date) unknown) (unknown) (no (unknown) (unknown) Ray # (Auto) 500 (units (unknown) date) unknown) (unknown) (no (unknown) (unknown) Ray # (Auto) (units ( unknown) date) unknown) (unknown) (no (unknown) (unknown) Ray % (Auto) 5.5 (units (unknown) date) unknown) (unknown) (no (unknown) (unknown) Ray % (Auto) (units ( unknown) date) unknown) [...] exclusive of unknown) procedural time. Result panel 619 (unknown) (no (unknown) (unknown) (no value) (units (unk nown) date) unknown) (unknown) (no (unknown) (unknown) 'Current (units (unkno wn) date) medications' to unknown) include all prescriptions, axez-bpl-opzgrpf products, (unknown) (no (unknown) (unknown) (Lidoderm) (units [...] date) unknown) (unknown) (no (unknown) (unknown) : [id number] (units (u nknown) date) unknown) (unknown) (no [...] (unknown) (unknown) : 1970 (units (unknown) date) Acct:[id number] unknown) (unknown) (no (unknown) (unknown) Date of [...] in 110s, o2 (unknown) (no (unknown) (unknown) [facility] (units (unknown) date) [address] unknown) [place] [address] (unknown) (no (unknown) (unknown) Laboratory Results (units [...] wn) date) unknown) (unknown) (no (unknown) (unknown) Ray # (Auto) 500 (units (unknown) date) unknown) (unknown) (no (unknown) (unknown) Ray # (Auto) (units ( unknown) date) unknown) (unknown) (no (unknown) (unknown) Ray % (Auto) 5.5 (units (unknown) date) unknown) (unknown) (no (unknown) (unknown) Ray % (Auto) (units ( unknown) date) unknown) [...] date) unknown) (unknown) (no (unknown) (unknown) #: [id number] (units ( unknown) date) unknown) (unknown) (no (unknown) (unknown) 09/09/22 (units (unkno wn) date) unknown) (unknown) (no (unknown) (unknown) [address] [place] [address] (units (unknown) date) unknown) (unknown) (no (unknown) (unknown) 98 mL. (units (unkno wn) date) unknown) (unknown) (no (unknown) (unknown) A pharmacologic (units (unknown) date) stress test was unknown) performed under the supervision of an attending (unknown) (no (unknown) (unknown) Accession Number: (units (unknown) date) [id number] unknown) (unknown) (no (unknown) (unknown) Age/Sex: 52 / M Date (uni ts (unknown) date) of Service: unknown) (unknown) (no (unknown) (unknown) Aminophylline: none (unit s (unknown) date) unknown) (unknown) (no (unknown) (unknown) [place] [address] (unit s (unknown) date) unknown) (unknown) (no (unknown) (unknown) Approved by: Jim (unit s (unknown) date) Carl KIMBROUGH on unknown) 09/10/2022 at 15:36 (unknown) (no (unknown) (unknown) CARDIAC STRESS: (units (unknown) date) unknown) (unknown) (no (unknown) (unknown) COMPARISON: None. (units (unknown) date) unknown) (unknown) (no (unknown) (unknown) : 1970 (units (unknown) date) Acct:[id number] unknown) (unknown) (no (unknown) (unknown) Dictated by: [...] date) pain unknown) (unknown) (no (unknown) (unknown) [facility] (units (unknown) date) unknown) (unknown) (no [...] (no (unknown) (unknown) TECHNIQUE: (units (unk nown) date) Radiopharmaceutical unknown) was injected at peak stress test, and also at (unknown) (no (unknown) (unknown) and systolic (units (u nknown) date) function (EF post unknown) stress 73%). (unknown) (no (unknown) (unknown) and (units (unkno wn) date) unknown) (unknown) (no (unknown) (unknown) artifacts. (units (unk nown) date) [facility]-on-cyzhu ratio unknown) is 0.27 (normal is less [...] date) peak effect of unknown) pharmacological stress. Wpk-tdp-htqvikhu was (unknown) (no (unknown) (unknown) tetrafosmin (units [...] unknown) or reversible perfusion defects. Result panel 621 (unknown) (no (unknown) (unknown) (no value) (units (unk nown) date) unknown) (unknown) (no (unknown) (unknown) 'Current (units (unkno wn) date) medications' to unknown) include all prescriptions, vvoi-jrs-ygfmauh products, (unknown) (no (unknown) (unknown) (Lidoderm) (units [...] date) unknown) (unknown) (no (unknown) (unknown) : [id number] (units (u nknown) date) unknown) (unknown) (no [...] (unknown) (unknown) : 1970 (units (unknown) date) Acct:[id number] unknown) (unknown) (no (unknown) (unknown) Date of [...] in 110s, o2 (unknown) (no (unknown) (unknown) [facility] (units (unknown) date) [address] unknown) [place] [address] (unknown) (no (unknown) (unknown) Laboratory Results (units [...] wn) date) unknown) (unknown) (no (unknown) (unknown) Ray # (Auto) 500 (units (unknown) date) unknown) (unknown) (no (unknown) (unknown) Ray # (Auto) (units ( unknown) date) unknown) (unknown) (no (unknown) (unknown) Ray % (Auto) 5.5 (units (unknown) date) unknown) (unknown) (no (unknown) (unknown) Ray % (Auto) (units ( unknown) date) unknown) [...] (no (unknown) (unknown) Patient: (units (unknown) date) II,Theconcepcion L MR# unknown) (unknown) (no (unknown) (unknown) [...] exclusive of unknown) procedural time. Result panel 622 (unknown) (no (unknown) (unknown) (no value) (units (unk nown) date) unknown) (unknown) (no (unknown) (unknown) > 09/09/22 2203 (units (unknown) date) unknown) (unknown) (no (unknown) (unknown) 'Current (units (unkno wn) date) medications' to unknown) include all prescriptions, vhxl-bvm-oromvrq products, (unknown) (no (unknown) (unknown) (Lidoderm) (units [...] date) unknown) (unknown) (no (unknown) (unknown) : [id number] (units (u nknown) date) unknown) (unknown) (no [...] (unknown) (unknown) : 1970 (units (unknown) date) Acct:[id number] unknown) (unknown) (no (unknown) (unknown) Date of [...] in 110s, o2 (unknown) (no (unknown) (unknown) [facility] (units (unknown) date) [address] [place] [address] unknown) [place] [address] (unknown) (no (unknown) (unknown) Laboratory Results (units [...] wn) date) unknown) (unknown) (no (unknown) (unknown) Ray # (Auto) 500 (units (unknown) date) unknown) (unknown) (no (unknown) (unknown) Ray # (Auto) (units ( unknown) date) unknown) (unknown) (no (unknown) (unknown) Ray % (Auto) 5.5 (units (unknown) date) unknown) (unknown) (no (unknown) (unknown) Ray % (Auto) (units ( unknown) date) unknown) [...] procedural time. Result panel 623 (unknown) (no date) (unknown) (unknown) Not Detected (units ( unknown) unknown) Result panel 624 (unknown) (no date) (unknown) (unknown) 0 /ul [...] (unknown) 91.7 fl (unkn own) Result panel 625 (unknown) (no date) (unknown) (unknown) > 60 [...] (unknown) 9.4 mg/dl (unkn own) Result panel 626 (unknown) (no [...] (unkn own) Result panel 627 (unknown) (no (unknown) (unknown) [...] date) unknown) (unknown) (no (unknown) (unknown) : [id number] (units (u nknown) date) unknown) (unknown) (no [...] (unknown) (unknown) : 1970 (units (unknown) date) Acct:[id number] unknown) (unknown) (no (unknown) (unknown) Date Patient [...] in 110s, o2 (unknown) (no (unknown) (unknown) [facility] (units (unknown) date) [address] unknown) [place] [address] (unknown) (no (unknown) (unknown) [facility] MD [...] Daniel Hector MD) (unknown) (no (unknown) (unknown) Ray # (Auto) 500 (units (unknown) date) unknown) (unknown) (no (unknown) (unknown) Ray # (Auto) 700 (units (unknown) date) unknown) (unknown) (no (unknown) (unknown) Ray # (Auto) (units ( unknown) date) unknown) (unknown) (no (unknown) (unknown) Ray % (Auto) 5.5 (units (unknown) date) unknown) (unknown) (no (unknown) (unknown) Ray % (Auto) 9.1 (units (unknown) date) unknown) (unknown) (no (unknown) (unknown) Ray % (Auto) (units ( unknown) date) unknown) [...] admitted for unknown) further treatment. Result panel 628 (unknown) (no (unknown) (unknown) [...] date) unknown) (unknown) (no (unknown) (unknown) : [id number] (units (u nknown) date) unknown) (unknown) (no [...] (unknown) (unknown) : 1970 (units (unknown) date) Acct:[id number] unknown) (unknown) (no (unknown) (unknown) Date Patient [...] in 110s, o2 (unknown) (no (unknown) (unknown) [facility] (units (unknown) date) [address] unknown) [place] [address] (unknown) (no (unknown) (unknown) [facility] MD [...] Daniel Hector MD) (unknown) (no (unknown) (unknown) Ray # (Auto) 500 (units (unknown) date) unknown) (unknown) (no (unknown) (unknown) Ray # (Auto) 700 (units (unknown) date) unknown) (unknown) (no (unknown) (unknown) Ray # (Auto) (units ( unknown) date) unknown) (unknown) (no (unknown) (unknown) Ray % (Auto) 5.5 (units (unknown) date) unknown) (unknown) (no (unknown) (unknown) Ray % (Auto) 9.1 (units (unknown) date) unknown) (unknown) (no (unknown) (unknown) Ray % (Auto) (units ( unknown) date) unknown) [...] (units (unkno wn) date) unknown) Result panel 629 (unknown) (no (unknown) (unknown) [...] date) unknown) (unknown) (no (unknown) (unknown) : [id number] (units (u nknown) date) unknown) (unknown) (no [...] (unknown) (unknown) : 1970 (units (unknown) date) Acct:[id number] unknown) (unknown) (no (unknown) (unknown) Data collected [...] date) Signs: unknown) (unknown) (no (unknown) (unknown) [facility] (units (unknown) date) [address] [place] [address] unknown) [place] [address] (unknown) (no (unknown) (unknown) Lab Data (units [...] (unknown) Lymph # (Auto) (units (unknown) date) (2665-8647) /uL unknown) (unknown) (no (unknown) (unknown) Lymph # (Auto) 1300 (unit s (unknown) date) (2436-8540) /uL unknown) (unknown) (no (unknown) (unknown) Lymph [...] date) Ambulatory unknown) (unknown) (no (unknown) (unknown) Ray # (Auto) (units ( unknown) date) (0-900) /uL unknown) (unknown) (no (unknown) (unknown) Ray # (Auto) 500 (units (unknown) date) (0-900) /uL unknown) (unknown) (no (unknown) (unknown) Ray % (Auto) (units ( unknown) date) (3-14) % unknown) (unknown) (no (unknown) (unknown) Ray % (Auto) 5.5 (units (unknown) date) (3-14) [...] Neut # (Auto) (units ( unknown) date) (9085-8415) /uL unknown) (unknown) (no (unknown) (unknown) Neut # (Auto) 6400 (units (unknown) date) (1821-1317) /uL unknown) (unknown) (no (unknown) (unknown) Neut [...] (unknown) (no (unknown) (unknown) Prednisone (units (unk n) date) (Prednisone 20 Mg unknown) Tablet) 20 [...] date) unknown) (unknown) (no (unknown) (unknown) angina SD non-STEMI (unit s (unknown) date) PE hypertensive [...] #60 tabs 05/20/22 (unknown) (no (unknown) (unknown) nguyễn, I did speak (units (unknown) date) with [...] description facility 2022-09-09 00:00 Smokes tobacco daily (finding) [facility] Vital Signs date measurement value units 2022-09-09 [...]
[2022-10-27] MEDS ORDERED: LIDOCAINE PATCH 5% TOP STA (20:19)
[2022-10-27] MEDS ORDERED: CYCLOBENZAPRINE 10 MG TABLET PO STA (20:19)
--- NOTE | 2022-10-27 20:24 | ED Physician Documentation ---
History of Present Illness - Stated complaint Stated Complaint: LFT NECK/SHOULDER PX - Chief complaint Chief Complaint: Ext Problem - History obtained from History obtained from: Patient - Additonal information Additional information: 52-year-old man with past medical history of cervical radiculopathy with frequent ED visits for left shoulder pain and related pain presents with left shoulder pain rating to the scapula for the past 3 days, gradual onset, constant, moderate severity, without exacerbating or relieving symptoms.Not worse with shoulder movement. Review of Systems Musculoskeletal: reports: Neck pain, Back pain, Other (Shoulder pain) PD PAST MEDICAL HISTORY - Past Medical History Cardiovascular: Hypertension, High cholesterol, Coronary artery disease, Angina Respiratory: Asthma Neuro: Headaches Endocrine/Autoimmune: Type 2 diabetes GI: GERD : None HEENT: None Psych: Depression, Anxiety, ADD/ADHD Musculoskeletal: Chronic back pain, Other Derm: None - Past Surgical History Past Surgical History: Yes Ortho: Spine surgery Cardiovascular: Cardiac catheterization - Present Medications Home Medications: Ambulatory Orders Medication Instructions Recorded Confirmed Metoprolol Succinate 50 mg PO BID 01/04/18 12/17/21 Albuterol Sulfate [Albuterol 1 - 2 puffs IH Q4HR PRN 06/04/20 12/17/21 Sulfate Hfa] Sertraline [Zoloft] 50 mg PO DAILY 07/12/20 12/17/21 Aspirin EC [Ecotrin] 81 mg ORAL DAILY 09/05/20 12/17/21 Acetaminophen [Tylenol] 650 mg PO Q6H PRN #40 tab 12/25/20 12/17/21 Gabapentin [Neurontin] 300 mg PO TID #12 cap 12/17/21 09/27/22 Oxycodone HCl/Acetaminophen 1 - 2 each PO Q6H PRN #14 tablet 09/27/22 [Percocet 5-325 mg Tablet] predniSONE [Deltasone] 20 mg PO [id number] #21 tab 09/27/22 - Allergies Allergies/Adverse Reactions: Allergies Allergy/AdvReac Type Severity Reaction Status Date / Time droperidol AdvReac Unknown Verified 10/27/22 20:01 - Social History Does the pt smoke?: Yes Smoking Status: Current every day smoker Does the pt drink ETOH?: Yes Does the pt have substance abuse?: No - Immunizations Immunizations are current?: Yes - POLST Patient has POLST: No POLST Status: Full Code PD ED PE NORMAL - Vitals Vital signs reviewed: Yes - General General: Alert and oriented X 3, No acute distress, Well developed/nourished - HEENT HEENT: Atraumatic, PERRL, EOMI - Neck Neck: Supple, no meningeal sign - Back Back: Other (Left medial scapula discomfort to palpation. palpable trapezius muscle spasm to L posterior shoulder and upper back) - Derm Derm: Normal color, No rash - Extremities Extremities: No deformity, Normal ROM s pain, Other (2+ LUE radial pulse. normal sensation and movement) - Neuro Neuro: No motor deficit, No sensory deficit Results - Vitals Vitals: Vital Signs - 24 hr 10/27/22 20:02 Temperature 36.5 C Heart Rate 112 H Respiratory 16 Rate Blood Pressure 160/80 H O2 Saturation 96 Oxygen O2 Source Room air PD Medical Decision Making - ED course ED course: 52-year-old man presents with acute on chronic left neck, shoulder, and back pain. Denies CP, soa, and is well appearing. Heart and lung exam were benign. He appears to have a trapezius muscle spasm and I provided Flexeril and lidocaine patch for him in the emergency department. Discussed alternative therapies as well as important need for follow-up with his primary care and neurosurgeon. He states that he will be scheduled for surgery any day now as soon as his preoperative information is sent from pcp to neurosurgeon. again advised that we are unable to prescribe pain medication and he will need to f/u with pain management. Patient is agreeable. return precautions given. Departure - Departure Disposition: 01 Home, Self Care Clinical Impression: Muscle spasm Condition: Stable Instructions: Muscle Spasm Comments: You were seen in the emergency department for acute on chronic shoulder, neck, and scapula pain. You will benefit from seeing an LMT (licensed massage therapist) and other alternative therapies like acupuncture could be helpful as well. Make sure to follow up with your primary care provider since you may be eligible for physical therapy referral. Return to the ED for new or worsening symptoms or other concerns. Lianet Castro, DELMI [address], [place] [address], [place] [address] ~5.4 mi
[2022-10-27 20:34] VITALS: BP 158/92
== END 2022-10-27 20:34 | disposition home or self-care (01) ==
LOC: ED 19:59
DX: M62.838 Other muscle spasm (principal); I10 Essential (primary) hypertension; F17.200 Nicotine dependence, unspecified, uncomplicated
CPT/HCPCS: 99282; 99283; A9270

== ENCOUNTER 2023-01-13 13:10 | Emergency (ER) | payer MEDICAID ==
--- OUTSIDE RECORDS SUMMARY | 2023-01-13 13:21 | EXTERNAL MEDICAL SUMMARY RPT | Continuity of Care Document ---
Author Name Unknown Address [address] [place] [address] Phone Organization [facility] Address [address] [place] [phone] Phone Care Team Providers Care Volunteer Services Director Name Role Phone [facility] Unavailable Unavailable Allergies and Intolerances date description facility type (no date) [facility] (unknown) (no date) [facility] (unknown) Medications date description facility 2022-11-08 00:00 [facility] 2022-11-08 00:00 Hydrocodone-Acetaminophen [facility] Problems date description facility 2022-11-08 00:00 Cervical radiculopathy [facility] Results/Labs test date author facility value unit interpretation Result panel 1 (unknown) (no date) (unknown) (unknown) (no value) (units unknown) (unknown) (unknown) (no date) (unknown) (unknown) (Lidoderm) (units unknown) (unknown) (unknown) (no date) (unknown) (unknown) 0.5 mg PO BEDT BRIANNA PRN (Reason: sleep) Qty: 14 0RF (units unknown) (unknown) (unknown) (no date) (unknown) (unknown) 11/08/22 (units unknown) (unknown) (unknown) (no date) (unknown) (unknown) 08:57 11/08/22 (unit s unknown) (unknown) (unknown) (no date) (unknown) (unknown) 09:10 11/08/22 (unit s unknown) (unknown) (unknown) (no date) (unknown) (unknown) 09:11 11/08/22 (unit s unknown) (unknown) (unknown) (no date) (unknown) (unknown) 09:11 (units unknown) (unknown) (unknown) (no date) (unknown) (unknown) 09:30 11/08/22 (unit s unknown) (unknown) (unknown) (no date) (unknown) (unknown) 09:30 (units unknown) (unknown) (unknown) (no date) (unknown) (unknown) 150 mg PO BID Qty: 60 0RF (units unknown) (unknown) (unknown) (no date) (unknown) (unknown) 2 patch topica l DAILY Qty: 30 0RF (units unknown) (unknown) (unknown) (no date) (unknown) (unknown) 2 tab PO Q6H P RN (Reason: pain) 7 Days Qty: 30 0RF (units unknown) (unknown) (unknown) (no date) (unknown) (unknown) 25 mg PO BID Q ty: 180 3RF (units unknown) (unknown) (unknown) (no date) (unknown) (unknown) 40 mg PO BEDTI ME Qty: 90 3RF (units unknown) (unknown) (unknown) (no date) (unknown) (unknown) 50 mg PO DAILY Qty: 90 3RF (units unknown) (unknown) (unknown) (no date) (unknown) (unknown) 600 mg PO TID Qty: 270 3RF (units unknown) (unknown) (unknown) (no date) (unknown) (unknown) 81 mg PO DAILY (unit s unknown) (unknown) (unknown) (no date) (unknown) (unknown) : [id number] (units unknown) (unknown) (unknown) (no date) (unknown) (unknown) ADD (attention deficit disorder) (units unknown) (unknown) (unknown) (no date) (unknown) (unknown) [facility] M D [Primary Care Provider] (units unknown) (unknown) (unknown) (no date) (unknown) (unknown) Age/Sex: 52 / M (uni ts unknown) (unknown) (unknown) (no date) (unknown) (unknown) Allergies (units unknown) (unknown) (unknown) (no date) (unknown) (unknown) Allergy/AdvRea c Type Severity Reaction Status Date / Time (units unknown) (unknown) (unknown) (no date) (unknown) (unknown) Asthma (units unknown) (unknown) (unknown) (no date) (unknown) (unknown) Blood Pressure 171/98 H 177/95 H (units unknown) (unknown) (unknown) (no date) (unknown) (unknown) Blood Pressure 180/103 H 05/06/23 08:57 (units unknown) (unknown) (unknown) (no date) (unknown) (unknown) Blood Pressure 180/103 H (units unknown) (unknown) (unknown) (no date) (unknown) (unknown) Cervical radic ulopathy due to osteoarthritis of spine (units unknown) (unknown) (unknown) (no date) (unknown) (unknown) Chief Complain t: Neck Pain/Injury (units unknown) (unknown) (unknown) (no date) (unknown) (unknown) Coronary arter y disease (units unknown) (unknown) (unknown) (no date) (unknown) (unknown) Course (units unknown) (unknown) (unknown) (no date) (unknown) (unknown) : 8 Acct:[id number] (units unknown) (unknown) (unknown) (no date) (unknown) (unknown) Date of Servic e: 11/08/22 (units unknown) (unknown) (unknown) (no date) (unknown) (unknown) Departure (units unknown) (unknown) (unknown) (no date) (unknown) (unknown) Depression (units unknown) (unknown) (unknown) (no date) (unknown) (unknown) Discharge Plan (unit s unknown) (unknown) (unknown) (no date) (unknown) (unknown) ER Physician: Chad Shaffer D.O. 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 (units unknown) (unknown) (unknown) (no date) (unknown) (unknown) HPI - Neck Pain/Inju ry (units unknown) (unknown) (unknown) (no date) (unknown) (unknown) Herniated intervertebral disc of lumbar spine (units unknown) (unknown) (unknown) (no date) (unknown) (unknown) Home Medications (un its unknown) (unknown) (unknown) (no date) (unknown) (unknown) Hx of cervical discectomy (-2013) (units unknown) (unknown) (unknown) (no date) (unknown) (unknown) Hyperlipidemia (unit s unknown) (unknown) (unknown) (no date) (unknown) (unknown) Hypertension (units unknown) (unknown) (unknown) (no date) (unknown) (unknown) Initial Vital Signs (units unknown) (unknown) (unknown) (no date) (unknown) (unknown) Initial Vital Signs: (units unknown) (unknown) (unknown) (no date) (unknown) (unknown) [address] [address] (units unknown) (unknown) (unknown) (no date) (unknown) (unknown) Medical Histor y (units unknown) (unknown) (unknown) (no date) (unknown) (unknown) Medication Instructions Recorded Confirmed (units unknown) (unknown) (unknown) (no date) (unknown) (unknown) Medication Instructions Recorded (units unknown) (unknown) (unknown) (no date) (unknown) (unknown) Mode of arriva l: Ambulatory (units unknown) (unknown) (unknown) (no date) (unknown) (unknown) Mother Diabete s mellitus (units unknown) (unknown) (unknown) (no date) (unknown) (unknown) No Action (units unknown) (unknown) (unknown) (no date) (unknown) (unknown) Opiate addiction (un its unknown) (unknown) (unknown) (no date) (unknown) (unknown) Oxygen Deliver y Method Room Air 11/08/22 08:57 (units unknown) (unknown) (unknown) (no date) (unknown) (unknown) Oxygen Deliver y Method Room Air (units unknown) (unknown) (unknown) (no date) (unknown) (unknown) Oxygen Delivery Meth od (units unknown) (unknown) (unknown) (no date) (unknown) (unknown) Pars defect of lumbar spine (units unknown) (unknown) (unknown) (no date) (unknown) (unknown) Patient History (uni ts unknown) (unknown) (unknown) (no date) (unknown) (unknown) Patient: Anthony Walls II MR# (units unknown) (unknown) (unknown) (no date) (unknown) (unknown) Peripheral neuropath y (units unknown) (unknown) (unknown) (no date) (unknown) (unknown) Prescriptions: (unit s unknown) (unknown) (unknown) (no date) (unknown) (unknown) Previous Rx's (units unknown) (unknown) (unknown) (no date) (unknown) (unknown) Pulse Oximetry 95 (u nits unknown) (unknown) (unknown) (no date) (unknown) (unknown) Pulse Oximetry 98 11/08/22 08:57 (units unknown) (unknown) (unknown) (no date) (unknown) (unknown) Pulse Oximetry 98 97 98 (units unknown) (unknown) (unknown) (no date) (unknown) (unknown) Pulse Rate 122 H (un its unknown) (unknown) (unknown) (no date) (unknown) (unknown) Pulse Rate 124 H 11/08/22 08:57 (units unknown) (unknown) (unknown) (no date) (unknown) (unknown) Pulse Rate 124 H 122 H 120 H (units unknown) (unknown) (unknown) (no date) (unknown) (unknown) REACTION' (units unknown) (unknown) (unknown) (no date) (unknown) (unknown) RLS (restless legs syndrome) (units unknown) (unknown) (unknown) (no date) (unknown) (unknown) Referrals: (units unknown) (unknown) (unknown) (no date) (unknown) (unknown) Related Data (units unknown) (unknown) (unknown) (no date) (unknown) (unknown) Respiratory Ra te 20 11/08/22 08:57 (units unknown) (unknown) (unknown) (no date) (unknown) (unknown) Respiratory Rate 20 (units unknown) (unknown) (unknown) (no date) (unknown) (unknown) Respiratory Rate (un its unknown) (unknown) (unknown) (no date) (unknown) (unknown) Rx Instructions: (un its unknown) (unknown) (unknown) (no date) (unknown) (unknown) Signed By: (units unknown) (unknown) (unknown) (no date) (unknown) (unknown) Smoking Status : Current every day smoker (units unknown) (unknown) (unknown) (no date) (unknown) (unknown) Social History (units unknown) (unknown) (unknown) (no date) (unknown) (unknown) Spinal stenosi s of lumbar region with neurogenic claudication (units unknown) (unknown) (unknown) (no date) (unknown) (unknown) Spondylolisthe sis of lumbar region (units unknown) (unknown) (unknown) (no date) (unknown) (unknown) Stated Complai nt: neck pain T-4 (units unknown) (unknown) (unknown) (no date) (unknown) (unknown) Stenosis of artery ( units unknown) (unknown) (unknown) (no date) (unknown) (unknown) Substance Use Type: does not use (units unknown) (unknown) (unknown) (no date) (unknown) (unknown) Surgical Histo ry (units unknown) (unknown) (unknown) (no date) (unknown) (unknown) Temperature 98 .4 F 11/08/22 08:57 (units unknown) (unknown) (unknown) (no date) (unknown) (unknown) Temperature 98.4 F ( units unknown) (unknown) (unknown) (no date) (unknown) (unknown) Temperature (units unknown) (unknown) (unknown) (no date) (unknown) (unknown) Time Seen by Shelbi alarcon: 11/08/22 09:13 (units unknown) (unknown) (unknown) (no date) (unknown) (unknown) Vital Signs - 8 hr ( units unknown) (unknown) (unknown) (no date) (unknown) (unknown) Vital Signs (units unknown) (unknown) (unknown) (no date) (unknown) (unknown) Vital signs: (units unknown) (unknown) (unknown) (no date) (unknown) (unknown) Vitamin D deficiency (units unknown) (unknown) (unknown) (no date) (unknown) (unknown) alcohol intake frequency: a few times a month (units unknown) (unknown) (unknown) (no date) (unknown) (unknown) alcohol intake: neve r (units unknown) (unknown) (unknown) (no date) (unknown) (unknown) alprazolam 0.5 mg tablet 0.5 mg PO BEDTIME PRN sleep #14 10/09/22 (units unknown) (unknown) (unknown) (no date) (unknown) (unknown) alprazolam 0.5 mg tablet (units unknown) (unknown) (unknown) (no date) (unknown) (unknown) aspirin 81 mg tablet,delayed 81 mg PO DAILY 04/11/22 09/09/22 (units unknown) (unknown) (unknown) (no date) (unknown) (unknown) aspirin 81 mg tablet,delayed release (DR/EC) (units unknown) (unknown) (unknown) (no date) (unknown) (unknown) atorvastatin 4 0 mg tablet 40 mg PO BEDTIME #90 tabs 04/11/22 (units unknown) (unknown) (unknown) (no date) (unknown) (unknown) atorvastatin 4 0 mg tablet (units unknown) (unknown) (unknown) (no date) (unknown) (unknown) bupropion HCl 150 mg 24 hr tablet, 150 mg PO BID #60 tabs 05/20/22 (units unknown) (unknown) (unknown) (no date) (unknown) (unknown) bupropion HCl 150 mg tablet extended release 24 hr (units unknown) (unknown) (unknown) (no date) (unknown) (unknown) droperidol [DROPERIDOL] Allergy Mild 'COGENIC Verified 11/08/22 08:57 (units unknown) (unknown) (unknown) (no date) (unknown) (unknown) extended release (un its unknown) (unknown) (unknown) (no date) (unknown) (unknown) gabapentin 600 mg tablet 600 mg PO TID #270 tabs 05/20/22 (units unknown) (unknown) (unknown) (no date) (unknown) (unknown) gabapentin 600 mg tablet (units unknown) (unknown) (unknown) (no date) (unknown) (unknown) household memb ers: family (units unknown) (unknown) (unknown) (no date) (unknown) (unknown) leave on most painful area for up to 12 hrs (units unknown) (unknown) (unknown) (no date) (unknown) (unknown) lidocaine 5 % topical patch 2 patch topical DAILY #30 ea 07/12/22 (units unknown) (unknown) (unknown) (no date) (unknown) (unknown) lidocaine [Lid oderm] 5 % adhesive patch,medicated (units unknown) (unknown) (unknown) (no date) (unknown) (unknown) metoprolol tar trate 25 mg tablet 25 mg PO BID #180 tabs 04/09/22 (units unknown) (unknown) (unknown) (no date) (unknown) (unknown) metoprolol tar trate 25 mg tablet (units unknown) (unknown) (unknown) (no date) (unknown) (unknown) mg tablet (Per cocet) tabs (units unknown) (unknown) (unknown) (no date) (unknown) (unknown) oxycodone-acet aminophe n 5 mg-325 2 tab PO Q6H PRN pain 7 days #30 09/10/22 (units unknown) (unknown) (unknown) (no date) (unknown) (unknown) oxycodone-acet aminophe n [Percocet] 5-325 mg tablet (units unknown) (unknown) (unknown) (no date) (unknown) (unknown) release (units unknown) (unknown) (unknown) (no date) (unknown) (unknown) sertraline 50 mg tablet 50 mg PO DAILY #90 tabs 04/09/22 (units unknown) (unknown) (unknown) (no date) (unknown) (unknown) sertraline 50 mg tablet (units unknown) (unknown) (unknown) (no date) (unknown) (unknown) tabs (units unknown) (unknown) (unknown) (no date) (unknown) (unknown) tobacco type: cigarettes (units unknown) (unknown) Result panel 2 (unknown) (no date) (unknown) (unknown) (no value) (units unknown) (unknown) (unknown) (no date) (unknown) (unknown) <Electronicall y signed by Chad Shaffer D.O.> (units unknown) (unknown) (unknown) (no date) (unknown) (unknown) (Lidoderm) (units unknown) (unknown) (unknown) (no date) (unknown) (unknown) 0.5 mg PO BEDT BRIANNA PRN (Reason: sleep) Qty: 14 0RF (units unknown) (unknown) (unknown) (no date) (unknown) (unknown) 11/08/22 1012 (units unknown) (unknown) (unknown) (no date) (unknown) (unknown) 11/08/22 (units unknown) (unknown) (unknown) (no date) (unknown) (unknown) 08:57 11/08/22 (unit s unknown) (unknown) (unknown) (no date) (unknown) (unknown) 09:10 11/08/22 (unit s unknown) (unknown) (unknown) (no date) (unknown) (unknown) 09:11 11/08/22 (unit s unknown) (unknown) (unknown) (no date) (unknown) (unknown) 09:11 (units unknown) (unknown) (unknown) (no date) (unknown) (unknown) 09:30 11/08/22 (unit s unknown) (unknown) (unknown) (no date) (unknown) (unknown) 09:30 (units unknown) (unknown) (unknown) (no date) (unknown) (unknown) 1 tab PO Q8H P RN (Reason: pain) Qty: 10 0RF (units unknown) (unknown) (unknown) (no date) (unknown) (unknown) 150 mg PO BID Qty: 60 0RF (units unknown) (unknown) (unknown) (no date) (unknown) (unknown) 2 patch topica l DAILY Qty: 30 0RF (units unknown) (unknown) (unknown) (no date) (unknown) (unknown) 2 tab PO Q6H P RN (Reason: pain) 7 Days Qty: 30 0RF (units unknown) (unknown) (unknown) (no date) (unknown) (unknown) 20 mg PO DAILY Qty: 6 0RF (units unknown) (unknown) (unknown) (no date) (unknown) (unknown) 25 mg PO BID Q ty: 180 3RF (units unknown) (unknown) (unknown) (no date) (unknown) (unknown) 40 mg PO BEDTI ME Qty: 90 3RF (units unknown) (unknown) (unknown) (no date) (unknown) (unknown) 50 mg PO DAILY Qty: 90 3RF (units unknown) (unknown) (unknown) (no date) (unknown) (unknown) 600 mg PO TID Qty: 270 3RF (units unknown) (unknown) (unknown) (no date) (unknown) (unknown) 81 mg PO DAILY (unit s unknown) (unknown) (unknown) (no date) (unknown) (unknown) : [id number] (units unknown) (unknown) (unknown) (no date) (unknown) (unknown) ADD (attention deficit disorder) (units unknown) (unknown) (unknown) (no date) (unknown) (unknown) [facility] M D [Primary Care Provider] (units unknown) (unknown) (unknown) (no date) (unknown) (unknown) Activity Restrictions/Additiona l Instructions: (units unknown) (unknown) (unknown) (no date) (unknown) (unknown) Age/Sex: 52 / M (uni ts unknown) (unknown) (unknown) (no date) (unknown) (unknown) Allergies (units unknown) (unknown) (unknown) (no date) (unknown) (unknown) Allergy/AdvRea c Type Severity Reaction Status Date / Time (units unknown) (unknown) (unknown) (no date) (unknown) (unknown) Asthma (units unknown) (unknown) (unknown) (no date) (unknown) (unknown) Back/Spine/Pelvis (u nits unknown) (unknown) (unknown) (no date) (unknown) (unknown) Blood Pressure 171/98 H 177/95 H (units unknown) (unknown) (unknown) (no date) (unknown) (unknown) Blood Pressure 180/103 H 11/08/22 08:57 (units unknown) (unknown) (unknown) (no date) (unknown) (unknown) Blood Pressure 180/103 H (units unknown) (unknown) (unknown) (no date) (unknown) (unknown) Cardio (units unknown) (unknown) (unknown) (no date) (unknown) (unknown) Cardiovascular (unit s unknown) (unknown) (unknown) (no date) (unknown) (unknown) Cardiovascular : Reports system reviewed and no additional complaints, except as (units unknown) (unknown) (unknown) (no date) (unknown) (unknown) Cervical Spine : No cervical muscular tenderness and No cervical spinal (units unknown) (unknown) (unknown) (no date) (unknown) (unknown) Cervical radic ulopathy due to osteoarthritis of spine (units unknown) (unknown) (unknown) (no date) (unknown) (unknown) Cervical radiculopat hy (units unknown) (unknown) (unknown) (no date) (unknown) (unknown) Chief Complain t: Neck Pain/Injury (units unknown) (unknown) (unknown) (no date) (unknown) (unknown) Clinical Impression: (units unknown) (unknown) (unknown) (no date) (unknown) (unknown) Const (units unknown) (unknown) (unknown) (no date) (unknown) (unknown) Constitutional (unit s unknown) (unknown) (unknown) (no date) (unknown) (unknown) Constitutional : Reports system reviewed and no additional complaints, except as (units unknown) (unknown) (unknown) (no date) (unknown) (unknown) Coronary arter y disease (units unknown) (unknown) (unknown) (no date) (unknown) (unknown) Course (units unknown) (unknown) (unknown) (no date) (unknown) (unknown) : 8 Acct:[id number] (units unknown) (unknown) (unknown) (no date) (unknown) (unknown) Date of Servic e: 11/08/22 (units unknown) (unknown) (unknown) (no date) (unknown) (unknown) Departure (units unknown) (unknown) (unknown) (no date) (unknown) (unknown) Depression (units unknown) (unknown) (unknown) (no date) (unknown) (unknown) Discharge Plan (unit s unknown) (unknown) (unknown) (no date) (unknown) (unknown) Discontinued Medications (units unknown) (unknown) (unknown) (no date) (unknown) (unknown) ER Physician: Chad Shaffer D.O. (units unknown) (unknown) (unknown) (no date) (unknown) (unknown) Effort + Inspe ction: normal respiratory effort (units unknown) (unknown) (unknown) (no date) (unknown) (unknown) Emergency Report (un its unknown) (unknown) (unknown) (no date) (unknown) (unknown) Essential hypertensi on (units unknown) (unknown) (unknown) (no date) (unknown) (unknown) Exam (units unknown) (unknown) (unknown) (no date) (unknown) (unknown) Extrem (units unknown) (unknown) (unknown) (no date) (unknown) (unknown) Face and sinus : normal facial exam (units unknown) (unknown) (unknown) (no date) (unknown) (unknown) Family History (units unknown) (unknown) (unknown) (no date) (unknown) (unknown) Father Hypertension (units unknown) (unknown) (unknown) (no date) (unknown) (unknown) General (units unknown) (unknown) (unknown) (no date) (unknown) (unknown) General: coope rative and No ill appearing (units unknown) (unknown) (unknown) (no date) (unknown) (unknown) 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 (units unknown) (unknown) (unknown) (no date) (unknown) (unknown) HENMT (units unknown) (unknown) (unknown) (no date) (unknown) (unknown) HPI - Neck Pain/Inju ry (units unknown) (unknown) (unknown) (no date) (unknown) (unknown) HPI Narrative: (unit s unknown) (unknown) (unknown) (no date) (unknown) (unknown) He was instruc parker to continue to do the other conservative measures such as (units unknown) (unknown) (unknown) (no date) (unknown) (unknown) Head: normal t o inspection and normocephalic (units unknown) (unknown) (unknown) (no date) (unknown) (unknown) Herniated intervertebral disc of lumbar spine (units unknown) (unknown) (unknown) (no date) (unknown) (unknown) History of Pre sent Illness (units unknown) (unknown) (unknown) (no date) (unknown) (unknown) Home Medications (un its unknown) (unknown) (unknown) (no date) (unknown) (unknown) Hx of cervical discectomy () (units unknown) (unknown) (unknown) (no date) (unknown) (unknown) Hydromorphone HCl (Hydromorphone 1 Mg Inj) 1 mg IM NOW ONE (units unknown) (unknown) (unknown) (no date) (unknown) (unknown) Hyperlipidemia (unit s unknown) (unknown) (unknown) (no date) (unknown) (unknown) Hypertension (units unknown) (unknown) (unknown) (no date) (unknown) (unknown) I do recommend that you take the steroids as directed. Also recommend that you (units unknown) (unknown) (unknown) (no date) (unknown) (unknown) Initial Vital Signs (units unknown) (unknown) (unknown) (no date) (unknown) (unknown) Initial Vital Signs: (units unknown) (unknown) (unknown) (no date) (unknown) (unknown) Instructions: DI for Neck Pain (units unknown) (unknown) (unknown) (no date) (unknown) (unknown) [address] [address] (units unknown) (unknown) (unknown) (no date) (unknown) (unknown) Left shoulder and left arm unremarkable. Does have discomfort to the side of (units unknown) (unknown) (unknown) (no date) (unknown) (unknown) Limitations: n o limitations (units unknown) (unknown) (unknown) (no date) (unknown) (unknown) MDM - Neck Pain/Inju ry (units unknown) (unknown) (unknown) (no date) (unknown) (unknown) MDM Narrative (units unknown) (unknown) (unknown) (no date) (unknown) (unknown) Medical Histor y (units unknown) (unknown) (unknown) (no date) (unknown) (unknown) Medical decisi on making narrative: (units unknown) (unknown) (unknown) (no date) (unknown) (unknown) Medication Instructions Recorded Confirmed (units unknown) (unknown) (unknown) (no date) (unknown) (unknown) Medication Instructions Recorded (units unknown) (unknown) (unknown) (no date) (unknown) (unknown) Mode of arriva l: Ambulatory (units unknown) (unknown) (unknown) (no date) (unknown) (unknown) Mother Diabete s mellitus (units unknown) (unknown) (unknown) (no date) (unknown) (unknown) Musculoskeletal (uni ts unknown) (unknown) (unknown) (no date) (unknown) (unknown) Musculoskeleta l: Reports system reviewed and no additional complaints, except as (units unknown) (unknown) (unknown) (no date) (unknown) (unknown) Neuro (units unknown) (unknown) (unknown) (no date) (unknown) (unknown) Neurologic (units unknown) (unknown) (unknown) (no date) (unknown) (unknown) Neurologic: Re ports system reviewed and no additional complaints, except as (units unknown) (unknown) (unknown) (no date) (unknown) (unknown) New (units unknown) (unknown) (unknown) (no date) (unknown) (unknown) No Action (units unknown) (unknown) (unknown) (no date) (unknown) (unknown) No specific. C ervical muscle tenderness. He states it is more of a deep nerve (units unknown) (unknown) (unknown) (no date) (unknown) (unknown) Opiate addiction (un its unknown) (unknown) (unknown) (no date) (unknown) (unknown) Ordered: (units unknown) (unknown) (unknown) (no date) (unknown) (unknown) Orders (units unknown) (unknown) (unknown) (no date) (unknown) (unknown) Other: (units unknown) (unknown) (unknown) (no date) (unknown) (unknown) Oxygen Deliver y Method Room Air 11/08/22 08:57 (units unknown) (unknown) (unknown) (no date) (unknown) (unknown) Oxygen Deliver y Method Room Air (units unknown) (unknown) (unknown) (no date) (unknown) (unknown) Oxygen Delivery Meth od (units unknown) (unknown) (unknown) (no date) (unknown) (unknown) Pars defect of lumbar spine (units unknown) (unknown) (unknown) (no date) (unknown) (unknown) Patient Dispos ition: Home (units unknown) (unknown) (unknown) (no date) (unknown) (unknown) Patient History (uni ts unknown) (unknown) (unknown) (no date) (unknown) (unknown) Patient is a 52-year-old male. Has known left-sided cervical degenerative disc (units unknown) (unknown) (unknown) (no date) (unknown) (unknown) Patient is her e with a flare of his baseline left-sided cervical neck pain with (units unknown) (unknown) (unknown) (no date) (unknown) (unknown) Patient: Anthony Walls II MR# (units unknown) (unknown) (unknown) (no date) (unknown) (unknown) Peripheral neuropath y (units unknown) (unknown) (unknown) (no date) (unknown) (unknown) Prednisone (Pr ednisone 20 Mg Tablet) 20 mg PO NOW ONE (units unknown) (unknown) (unknown) (no date) (unknown) (unknown) Prescriptions: (unit s unknown) (unknown) (unknown) (no date) (unknown) (unknown) Previous Rx's (units unknown) (unknown) (unknown) (no date) (unknown) (unknown) Pulse Oximetry 95 (u nits unknown) (unknown) (unknown) (no date) (unknown) (unknown) Pulse Oximetry 98 11/08/22 08:57 (units unknown) (unknown) (unknown) (no date) (unknown) (unknown) Pulse Oximetry 98 97 98 (units unknown) (unknown) (unknown) (no date) (unknown) (unknown) Pulse Rate 122 H (un its unknown) (unknown) (unknown) (no date) (unknown) (unknown) Pulse Rate 124 H 11/08/22 08:57 (units unknown) (unknown) (unknown) (no date) (unknown) (unknown) Pulse Rate 124 H 122 H 120 H (units unknown) (unknown) (unknown) (no date) (unknown) (unknown) Pulses: radial pulses present on the left (units unknown) (unknown) (unknown) (no date) (unknown) (unknown) REACTION' (units unknown) (unknown) (unknown) (no date) (unknown) (unknown) RLS (restless legs syndrome) (units unknown) (unknown) (unknown) (no date) (unknown) (unknown) Radiculopathy left arm. (units unknown) (unknown) (unknown) (no date) (unknown) (unknown) Rate: regular rate ( units unknown) (unknown) (unknown) (no date) (unknown) (unknown) Referrals: (units unknown) (unknown) (unknown) (no date) (unknown) (unknown) Related Data (units unknown) (unknown) (unknown) (no date) (unknown) (unknown) Resp (units unknown) (unknown) (unknown) (no date) (unknown) (unknown) Respiratory Ra te 20 11/08/22 08:57 (units unknown) (unknown) (unknown) (no date) (unknown) (unknown) Respiratory Rate 20 (units unknown) (unknown) (unknown) (no date) (unknown) (unknown) Respiratory Rate (un its unknown) (unknown) (unknown) (no date) (unknown) (unknown) Respiratory (units unknown) (unknown) (unknown) (no date) (unknown) (unknown) Respiratory: R eports system reviewed and no additional complaints, except as (units unknown) (unknown) (unknown) (no date) (unknown) (unknown) Review of Systems (u nits unknown) (unknown) (unknown) (no date) (unknown) (unknown) Rx Instructions: (un its unknown) (unknown) (unknown) (no date) (unknown) (unknown) Signed By: (units unknown) (unknown) (unknown) (no date) (unknown) (unknown) Smoking Status : Current every day smoker (units unknown) (unknown) (unknown) (no date) (unknown) (unknown) Social History (units unknown) (unknown) (unknown) (no date) (unknown) (unknown) Source: patient (uni ts unknown) (unknown) (unknown) (no date) (unknown) (unknown) Spinal stenosi s of lumbar region with neurogenic claudication (units unknown) (unknown) (unknown) (no date) (unknown) (unknown) Spondylolisthe sis of lumbar region (units unknown) (unknown) (unknown) (no date) (unknown) (unknown) Stand Alone Fo izabel: Patient Portal/API (units unknown) (unknown) (unknown) (no date) (unknown) (unknown) Stated Complai nt: neck pain T-4 (units unknown) (unknown) (unknown) (no date) (unknown) (unknown) Stenosis of artery ( units unknown) (unknown) (unknown) (no date) (unknown) (unknown) Stop: 11/08/22 10:06 (units unknown) (unknown) (unknown) (no date) (unknown) (unknown) Substance Use Type: does not use (units unknown) (unknown) (unknown) (no date) (unknown) (unknown) Surgical Histo ry (units unknown) (unknown) (unknown) (no date) (unknown) (unknown) Temperature 98 .4 F 11/08/22 08:57 (units unknown) (unknown) (unknown) (no date) (unknown) (unknown) Temperature 98.4 F ( units unknown) (unknown) (unknown) (no date) (unknown) (unknown) Temperature (units unknown) (unknown) (unknown) (no date) (unknown) (unknown) Time Seen by Shelbi alarcon: 11/08/22 09:13 (units unknown) (unknown) (unknown) (no date) (unknown) (unknown) Vital Signs - 8 hr ( units unknown) (unknown) (unknown) (no date) (unknown) (unknown) Vital Signs (units unknown) (unknown) (unknown) (no date) (unknown) (unknown) Vital signs: (units unknown) (unknown) (unknown) (no date) (unknown) (unknown) Vitamin D deficiency (units unknown) (unknown) (unknown) (no date) (unknown) (unknown) agreement with plan. (units unknown) (unknown) (unknown) (no date) (unknown) (unknown) alcohol intake frequency: a few times a month (units unknown) (unknown) (unknown) (no date) (unknown) (unknown) alcohol intake: davee r (units unknown) (unknown) (unknown) (no date) (unknown) (unknown) alprazolam 0.5 mg tablet 0.5 mg PO BEDTIME PRN sleep #14 10/09/22 (units unknown) (unknown) (unknown) (no date) (unknown) (unknown) alprazolam 0.5 mg tablet (units unknown) (unknown) (unknown) (no date) (unknown) (unknown) aspirin 81 mg tablet,delayed 81 mg PO DAILY 04/11/22 09/09/22 (units unknown) (unknown) (unknown) (no date) (unknown) (unknown) aspirin 81 mg tablet,delayed release (DR/EC) (units unknown) (unknown) (unknown) (no date) (unknown) (unknown) atorvastatin 4 0 mg tablet 40 mg PO BEDTIME #90 tabs 04/11/22 (units unknown) (unknown) (unknown) (no date) (unknown) (unknown) atorvastatin 4 0 mg tablet (units unknown) (unknown) (unknown) (no date) (unknown) (unknown) bupropion HCl 150 mg 24 hr tablet, 150 mg PO BID #60 tabs 05/20/22 (units unknown) (unknown) (unknown) (no date) (unknown) (unknown) bupropion HCl 150 mg tablet extended release 24 hr (units unknown) (unknown) (unknown) (no date) (unknown) (unknown) caused the dis comfort to worsen. He has been doing his normal medications. He (units unknown) (unknown) (unknown) (no date) (unknown) (unknown) continue with the Tylenol/Motrin and gabapentin. Use the pain medication as (units unknown) (unknown) (unknown) (no date) (unknown) (unknown) disease with radiculopathy. He is currently under the care of Orthopedic spine (units unknown) (unknown) (unknown) (no date) (unknown) (unknown) documented (units unknown) (unknown) (unknown) (no date) (unknown) (unknown) droperidol [DROPERIDOL] Allergy Mild 'COGENIC Verified 11/08/22 08:57 (units unknown) (unknown) (unknown) (no date) (unknown) (unknown) extended release (un its unknown) (unknown) (unknown) (no date) (unknown) (unknown) gabapentin 600 mg tablet 600 mg PO TID #270 tabs 05/20/22 (units unknown) (unknown) (unknown) (no date) (unknown) (unknown) gabapentin 600 mg tablet (units unknown) (unknown) (unknown) (no date) (unknown) (unknown) heat and ice. He was given return precautions. He expressed understanding (units unknown) (unknown) (unknown) (no date) (unknown) (unknown) his neck. (units unknown) (unknown) (unknown) (no date) (unknown) (unknown) household memb ers: family (units unknown) (unknown) (unknown) (no date) (unknown) (unknown) hydrocodone 5 mg-acetaminophen 325 1 tab PO Q8H PRN pain #10 tabs 11/08/22 (units unknown) (unknown) (unknown) (no date) (unknown) (unknown) hydrocodone-ac etaminop hen 5-325 mg tablet (units unknown) (unknown) (unknown) (no date) (unknown) (unknown) is not been ab le to sleep for the past couple nights. He is here asking for (units unknown) (unknown) (unknown) (no date) (unknown) (unknown) leave on most painful area for up to 12 hrs (units unknown) (unknown) (unknown) (no date) (unknown) (unknown) lidocaine 5 % topical patch 2 patch topical DAILY #30 ea 07/12/22 (units unknown) (unknown) (unknown) (no date) (unknown) (unknown) lidocaine [Lid oderm] 5 % adhesive patch,medicated (units unknown) (unknown) (unknown) (no date) (unknown) (unknown) metoprolol tar trate 25 mg tablet 25 mg PO BID #180 tabs 04/09/22 (units unknown) (unknown) (unknown) (no date) (unknown) (unknown) metoprolol tar trate 25 mg tablet (units unknown) (unknown) (unknown) (no date) (unknown) (unknown) mg tablet (Per cocet) tabs (units unknown) (unknown) (unknown) (no date) (unknown) (unknown) mg tablet (units unknown) (unknown) (unknown) (no date) (unknown) (unknown) needed. Return to the emergency department for new or worsening symptoms. (units unknown) (unknown) (unknown) (no date) (unknown) (unknown) normally his discomfort is tolerable with this regimen. A couple days ago who (units unknown) (unknown) (unknown) (no date) (unknown) (unknown) oxycodone-acet aminophe n 5 mg-325 2 tab PO Q6H PRN pain 7 days #30 09/10/22 (units unknown) (unknown) (unknown) (no date) (unknown) (unknown) oxycodone-acet aminophe n [Percocet] 5-325 mg tablet (units unknown) (unknown) (unknown) (no date) (unknown) (unknown) pain control. (units unknown) (unknown) (unknown) (no date) (unknown) (unknown) pain (units unknown) (unknown) (unknown) (no date) (unknown) (unknown) prednisone 20 mg tablet 20 mg PO DAILY #6 tabs 11/08/22 (units unknown) (unknown) (unknown) (no date) (unknown) (unknown) prednisone 20 mg tablet (units unknown) (unknown) (unknown) (no date) (unknown) (unknown) radiculopathy. No new injuries. No indication for radiologic studies. Patient (units unknown) (unknown) (unknown) (no date) (unknown) (unknown) release (units unknown) (unknown) (unknown) (no date) (unknown) (unknown) same pain that he is had in the past. There was no specific incident that (units unknown) (unknown) (unknown) (no date) (unknown) (unknown) sertraline 50 mg tablet 50 mg PO DAILY #90 tabs 04/09/22 (units unknown) (unknown) (unknown) (no date) (unknown) (unknown) sertraline 50 mg tablet (units unknown) (unknown) (unknown) (no date) (unknown) (unknown) started have p ain in his left neck radiating down his left arm. This is the (units unknown) (unknown) (unknown) (no date) (unknown) (unknown) surgery. He pichardo s done all of the preop workup but has yet to be scheduled for (units unknown) (unknown) (unknown) (no date) (unknown) (unknown) tabs (units unknown) (unknown) (unknown) (no date) (unknown) (unknown) tenderness (units unknown) (unknown) (unknown) (no date) (unknown) (unknown) this. He state s he is on gabapentin and Tylenol and ibuprofen. He states that (units unknown) (unknown) (unknown) (no date) (unknown) (unknown) to put him on steroids for the next couple days. Also provide pain medication. (units unknown) (unknown) (unknown) (no date) (unknown) (unknown) tobacco type: cigarettes (units unknown) (unknown) (unknown) (no date) (unknown) (unknown) was tachycardi c but this is most likely because he is in pain. Plan will be is (units unknown) (unknown) Social History date description facility 2022-11-08 00:00 Smokes tobacco daily (finding) [facility] Vital Signs date measurement value units 2022-11-08 00:00 BMI 35.2 kg/m2 2022-11-08 00:00 BP_diastolic 107 mmHg 2022-11-08 00:00 BP_systolic 181 mmHg 2022-11-08 00:00 heart_rate 117 /min 2022-11-08 00:00 height_metric 182.88 cm 2022-11-08 00:00 height_standard 72 in 2022-11-08 00:00 o2_saturation 96 % 2022-11-08 00:00 respiration_rate 16 /min 2022-11-08 00:00 temperature_metric 36.89 C 2022-11-08 00:00 temperature_standard 98.4 F 2022-11-08 00:00 weight_metric 117.93 kg 2022-11-08 00:00 weight_standard 259.99 lb
[2023-01-13] MEDS ORDERED: LORazepam 1 MG TABLET PO STA (14:02)
--- NOTE | 2023-01-13 14:14 | ED Physician Documentation ---
PD HPI DYSPNEA - Stated complaint Stated Complaint: SOA - Chief complaint Chief Complaint: Resp - History obtained from History obtained from: Patient - History of Present Illness Timing - onset: Last night Timing - onset during: Rest Timing - duration: Hours Timing - details: Gradual onset, Still present, Waxing and waning Inciting event(s): Emotional event. No: Out of meds, URI, Allergic rxn/anaphylaxis, Exposure (ie smoke) Improved by: Sitting up Worsened by: Laying flat Associated symptoms: Anxiety. No: Fever, Cough, Hemoptysis, Wheezing, Chest pain / discomfort, Palpitations, Diaphoresis, Bilateral edema, Unilateral edema Similar symptoms before: Diagnosis (asthma) Recently seen: Not recently seen - Additional information Additional information: Shiv Gay is a 52-year-old male with a history of anxiety and reactive airway disease and he has developed some difficulty breathing at night over the past 2 nights and he notes that when he goes to lay down he is extremely short of breath and has to sit up to breathe. He has never had these symptoms previously. He indicates that he is under significant stress and that his father has recently had a stroke. He had been recovering he has been followed at [facility] where they did a large vessel occlusion retrieval and his father has significant deficit. He indicates that his father was improving and he has had a turn for the worse he has become unable to eat again and this is because the patient some significant stress. Review of Systems Constitutional: denies: Fever Eyes: denies: Decreased vision Ears: denies: Ear pain Nose: denies: Rhinorrhea / runny nose, Congestion Throat: denies: Sore throat Cardiac: denies: Chest pain / pressure Respiratory: denies: Dyspnea, Cough GI: denies: Abdominal Pain, Nausea, Vomiting, Constipation, Diarrhea : denies: Dysuria, Frequency PD PAST MEDICAL HISTORY - Past Medical History Cardiovascular: Hypertension, High cholesterol, Coronary artery disease, Angina Respiratory: Asthma Neuro: Headaches Endocrine/Autoimmune: Type 2 diabetes GI: GERD : None HEENT: None Psych: Depression, Anxiety, ADD/ADHD Musculoskeletal: Chronic back pain, Other Derm: None - Past Surgical History Past Surgical History: Yes Ortho: Spine surgery Cardiovascular: Cardiac catheterization - Present Medications Home Medications: Ambulatory Orders Medication Instructions Recorded Confirmed Metoprolol Succinate 50 mg PO BID 01/04/18 12/17/21 Albuterol Sulfate [Albuterol 1 - 2 puffs IH Q4HR PRN 06/04/20 12/17/21 Sulfate Hfa] Sertraline [Zoloft] 50 mg PO DAILY 07/12/20 12/17/21 Aspirin EC [Ecotrin] 81 mg ORAL DAILY 09/05/20 12/17/21 Acetaminophen [Tylenol] 650 mg PO Q6H PRN #40 tab 12/25/20 12/17/21 Gabapentin [Neurontin] 300 mg PO TID #12 cap 12/17/21 09/27/22 Oxycodone HCl/Acetaminophen 1 - 2 each PO Q6H PRN #14 tablet 09/27/22 [Percocet 5-325 mg Tablet] predniSONE [Deltasone] 20 mg PO [id number] #21 tab 09/27/22 LORazepam [Ativan] 1 mg PO Q6HR PRN #14 tablet 01/13/23 - Allergies Allergies/Adverse Reactions: Allergies Allergy/AdvReac Type Severity Reaction Status Date / Time droperidol AdvReac Unknown Verified 01/13/23 13:19 - Social History Does the pt smoke?: Yes Smoking Status: Current every day smoker Does the pt drink ETOH?: Yes Does the pt have substance abuse?: No - Immunizations Immunizations are current?: Yes - POLST Patient has POLST: No POLST Status: Full Code PD ED PE NORMAL - Vitals Vital signs reviewed: Yes (Hypertensive) - General General: Alert and oriented X 3, Well developed/nourished, Other (The patient does appear anxious with pharmaceutical sales tone.) - HEENT HEENT: Atraumatic, PERRL, EOMI - Neck Neck: Supple, no meningeal sign, No bony TTP - Cardiac Cardiac: RRR, No murmur - Respiratory Respiratory: No respiratory distress, Clear bilaterally - Abdomen Abdomen: Normal bowel sounds, Soft, Non tender, Non distended, No organomegaly - Back Back: No CVA TTP, No spinal TTP - Derm Derm: Normal color, Warm and dry, No rash - Extremities Extremities: No deformity, No edema - Neuro Neuro: Alert and oriented X 3, 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 Relevant findings are: Rate: Rate (enter#) (69) Rhythm: NSR, LAE Compare to prior EKG: Unchanged from prior EKG (SPT 10-11-22 no changes) Computer interpretation: Agree with computer - Labs Labs: Laboratory Tests 01/13/23 01/13/23 01/13/23 14:14 14:14 14:14 WBC 7.4 RBC 4.82 Hgb 14.6 Hct 44.2 MCV 91.7 MCH 30.3 MCHC 33.0 RDW 11.8 L Plt Count 211 MPV 9.2 Neut # (Auto) 5.2 Lymph # (Auto) 1.3 L Giles # (Auto) 0.5 Eos # (Auto) 0.4 Baso # (Auto) 0.1 Absolute Nucleated RBC 0.00 Nucleated RBC % 0.0 Sodium 139 Potassium 4.1 Chloride 100 L Carbon Dioxide 31 Anion Gap 8.0 BUN 19 Creatinine 1.1 Estimated GFR (MDRD) 70 L Glucose 207 H Calcium 9.4 Total Bilirubin 0.5 AST 28 ALT 25 Alkaline Phosphatase 50 Troponin I High Sens B-Natriuretic Peptide 33 Total Protein 7.5 Albumin 4.3 Globulin 3.2 Albumin/Globulin Ratio 1.3 Lipase 30 01/13/23 14:14 WBC RBC Hgb Hct MCV MCH MCHC RDW Plt Count MPV Neut # (Auto) Lymph # (Auto) Giles # (Auto) Eos # (Auto) Baso # (Auto) Absolute Nucleated RBC Nucleated RBC % Sodium Potassium Chloride Carbon Dioxide Anion Gap BUN Creatinine Estimated GFR (MDRD) Glucose Calcium Total Bilirubin AST ALT Alkaline Phosphatase Troponin I High Sens < 2.3 L B-Natriuretic Peptide Total Protein Albumin Globulin Albumin/Globulin Ratio Lipase - Rads (name of study) chest Relevant Findings:: Prelim report reviewed (Impression: No acute cardiopulmonary process.), EMP independent interpretation of test PD Medical Decision Making - ED course Complexity details: considered differential, d/w patient, d/w family Reviewed Lab Results: We reviewed a complete blood count showing a normal white blood cell count normal hemoglobin hematocrit and platelets we reviewed chemistries showing normal electrolytes normal kidney and liver function glucose is elevated at 207 consistent with the patient's known history of diabetes. A BNP was 33 in the normal range and a highly sensitive troponin was 2.3 and a low range. These benign laboratory studies do not indicate a specific process. They aid in ruling out CHF with a normal BNP and CAD with an normal trop. Pneumonia or lung disease is unlikely with appearance of normal chest . ED course: 52-year-old male with a markedly stressful life event presents with intermittent dyspnea at rest and this appears to be a likely panic attack. Our work-up was unremarkable. The patient responded to some Ativan given orally and it took some time for it to be effective. We will provide additional Ativan for the patient to use temporarily and I have referred him to the [place] primary [facility] for follow-up Departure - Departure Disposition: 01 Home, Self Care Clinical Impression: Stress reaction Condition: Stable Instructions: ED Panic Attack, ED Stress React Follow-Up: [facility] MD [Primary Care Provider] - [facility] [Provider Group] Prescriptions: LORazepam [Ativan] 1 mg PO Q6HR PRN #14 tablet PRN Reason: Anxiety Comments: Shiv, it looks like today you have excessive stress related to the medical situation that you are father is in. There is some medication that can help with this and we have E scribed some Ativan to the [facility] in [place]. These type of events that are life-changing can be extremely stressful and they can last quite some time. My recommendation is to seek follow-up at the [facility] primary care clinic to consider counseling.
[2023-01-13 14:21] LABS: BASOPHILS # (AUTO) 0.1 10^3/uL (0.0-0.1); BASOPHILS % (AUTO) 0.7 %; EOSINOPHILS # (AUTO) 0.4 10^3/uL (0.0-0.7); EOSINOPHILS % (AUTO) 5.2 %; HCT - HEMATOCRIT 44.2 % (42.0-52.0); HGB - HEMOGLOBIN 14.6 g/dL (14.0-18.0); LYMPHOCYTES # (AUTO) 1.3 10^3/uL (1.5-3.5); LYMPHOCYTES % (AUTO) 17.3 %; MEAN CORPUSCULAR HEMOGLOBIN 30.3 pg (27.0-31.0); MEAN CORPUSCULAR VOLUME 91.7 fL (80.0-94.0); MEAN PLATELET VOLUME 9.2 fL (7.4-11.4); MONOCYTES # (AUTO) 0.5 10^3/uL (0.0-1.0); MONOCYTES % (AUTO) 6.5 %; NEUTROPHILS # (AUTO) 5.2 10^3/uL (1.5-6.6); NEUTROPHILS % (AUTO) 69.9 %; PLT - PLATELET COUNT 211 10^3/uL (130-450); RED BLOOD COUNT 4.82 10^6/uL (4.70-6.10); RED CELL DISTRIBUTION WIDTH 11.8 % (12.0-15.0); WHITE BLOOD COUNT 7.4 x10^3/uL (4.8-10.8)
[2023-01-13 14:37] LABS: ALBUMIN 4.3 g/dL (3.2-5.5); ALBUMIN/GLOBULIN RATIO 1.3 (1.0-2.2); BILIRUBIN,TOTAL 0.5 mg/dL (0.2-1.0); CALCIUM 9.4 mg/dL (8.5-10.3); CREATININE 1.1 mg/dL (0.6-1.2); POTASSIUM 4.1 mmol/L (3.5-5.0); TOTAL PROTEIN 7.5 g/dL (6.7-8.2)
--- NOTE | 2023-01-13 14:42 | XRAY Report ---
PROCEDURE: Chest 1 View X-Ray INDICATIONS: soa TECHNIQUE: One view of the chest was acquired. COMPARISON: 03/30/2021. FINDINGS: Surgical changes and devices: Surgical changes are seen in lower cervical spine. Lungs and pleura: No pleural effusions or pneumothorax. Lungs are clear. Mediastinum: Mediastinal contours appear normal. Heart size is normal. Bones and chest wall: No suspicious bony lesions. Overlying soft tissues appear unremarkable. IMPRESSION: No acute cardiopulmonary process. Reviewed by: Rafat Ann MD on 01/13/2023 2:40 PM PDT Approved by: Rafat Ann MD on 01/13/2023 2:40 PM PDT Station ID: [id number]
[2023-01-13 16:10] VITALS: BP 188/82
== END 2023-01-13 16:06 | disposition home or self-care (01) ==
LOC: ED 13:10
DX: F43.9 Reaction to severe stress, unspecified (principal); I10 Essential (primary) hypertension; E78.00 Pure hypercholesterolemia, unspecified; I25.10 Atherosclerotic heart disease of native coronary artery without angina pectoris; E11.9 Type 2 diabetes mellitus without complications; F17.200 Nicotine dependence, unspecified, uncomplicated; Z79.82 Long term (current) use of aspirin; Z79.899 Other long term (current) drug therapy
CPT/HCPCS: 36415; 71045; 80053; 83690; 83880; 84484; 85025; 93005; 99284; J8499

== ENCOUNTER 2023-05-24 10:58 | Emergency (ER) | payer BC, MEDICAID ==
[2023-05-24 11:08] VITALS: BP 201/97; O2SAT 93
--- NOTE | 2023-05-24 11:18 | ED Physician Documentation ---
PD HPI BACK PAIN - Stated complaint Stated Complaint: BACK/LEG PX - Chief complaint Chief Complaint: Back Pain - History obtained from History obtained from: Patient - Additional information Additional information: This is a 53-year-old male who has a history of chronic back pain with prior cervical and lumbar spine surgeries. He presents today with lower back pain radiating down into the left leg. He has had similar symptoms in the past that come and go. 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 He started a Medrol Dosepak that he had leftover at home and has been taking Tylenol and ibuprofen. He also has gabapentin that he uses as needed though has not used it recently. He feels like he simply needs some time off work to allow his back to heal and is requesting a note. He denies any bowel or bladder changes, no fever or chills, no groin numbness, and no weakness or numbness in the lower legs. PD PAST MEDICAL HISTORY - Past Medical History Past Medical History: Yes Cardiovascular: Hypertension, High cholesterol, Coronary artery disease, Angina Respiratory: Asthma Neuro: Headaches Endocrine/Autoimmune: Type 2 diabetes GI: GERD : None HEENT: None Psych: Depression, Anxiety, ADD/ADHD Musculoskeletal: Chronic back pain, Other Derm: None - Past Surgical History Past Surgical History: Yes Ortho: Spine surgery Cardiovascular: Cardiac catheterization - Present Medications Home Medications: Ambulatory Orders Medication Instructions Recorded Confirmed Metoprolol Succinate 50 mg PO BID 01/04/18 12/17/21 Albuterol Sulfate [Albuterol 1 - 2 puffs IH Q4HR PRN 06/04/20 12/17/21 Sulfate Hfa] Sertraline [Zoloft] 50 mg PO DAILY 07/12/20 12/17/21 Aspirin EC [Ecotrin] 81 mg ORAL DAILY 09/05/20 12/17/21 Acetaminophen [Tylenol] 650 mg PO Q6H PRN #40 tab 12/25/20 12/17/21 Gabapentin [Neurontin] 300 mg PO TID #12 cap 12/17/21 09/27/22 Oxycodone HCl/Acetaminophen 1 - 2 each PO Q6H PRN #14 tablet 09/27/22 [Percocet 5-325 mg Tablet] predniSONE [Deltasone] 20 mg PO [id number] #21 tab 09/27/22 LORazepam [Ativan] 1 mg PO Q6HR PRN #14 tablet 01/13/23 - Allergies Allergies/Adverse Reactions: Allergies Allergy/AdvReac Type Severity Reaction Status Date / Time droperidol AdvReac Unknown Verified 05/24/23 11:06 - Social History Does the pt smoke?: Yes Smoking Status: Current every day smoker Does the pt drink ETOH?: Yes Does the pt have substance abuse?: No - Immunizations Immunizations are current?: Yes - POLST Patient has POLST: No POLST Status: Full Code PD ED PE NORMAL - Vitals Vital signs reviewed: Yes - General General: Alert and oriented X 3, No acute distress, Well developed/nourished - HEENT HEENT: Atraumatic, Moist mucous membranes - Back Back: No CVA TTP, No spinal TTP, Other (mild left lumbosacral ttp. ) - Derm Derm: Normal color, Warm and dry, No rash - Extremities Extremities: No deformity, No tenderness to palpate, Normal ROM s pain, No calf tenderness / cord, Other (negative slr testing bilat. nl leg sensation ) - Neuro Neuro: Alert and oriented X 3 Eye Opening: Spontaneous Motor: Obeys Commands Verbal: Oriented GCS Score: 15 - Psych Psych: Normal mood, Normal affect Results - Vitals Vitals: Vital Signs - 24 hr 05/24/23 11:03 Temperature 36.0 C L Heart Rate 80 Respiratory 20 Rate Blood Pressure 201/97 H O2 Saturation 93 Oxygen O2 Source Room air PD Medical Decision Making - ED course Complexity details: considered differential, d/w patient ED course: 53-year-old male with a history of chronic lower back issues as described in HPI presents with an exacerbation of his lower back pain. It is rating down the left leg. The pain in the back is actually almost resolved though he still has a "burning" sensation in the left lower leg. He has a negative straight leg raise test, no signs of cauda equina or epidural abscess or osteomyelitis. Do think he is stable for discharge home, no imaging indicated today, patient can continue the Medrol Dosepak, Tylenol but avoid using ibuprofen simultaneously with the steroids, and encouraged him to start using his gabapentin again. A note was provided for work this week, as patient is also dealing with the recent of his father and I think additional time off would be beneficial for him. I discussed return precautions if any new or worsening symptoms. Departure - Departure Disposition: 01 Home, Self Care Clinical Impression: Low back pain Qualifiers: Chronicity: acute Back pain laterality: left Sciatica presence: with sciatica Sciatica laterality: sciatica of left side Qualified Code(s): M54.42 - Lumbago with sciatica, left side Condition: Good Instructions: ED Back Care Tips Comments: Please continue the medications you have and avoid lifting or twisting. You can try light back exercises and stretches and try to stay active (no bedrest). Ice and heat can be helpful. See your primary doctor or back surgeon if ongoing symptoms beyond the next week or return if worsening. Forms: Activity restrictions
== END 2023-05-24 11:37 | disposition home or self-care (01) ==
LOC: ED 10:58
DX: M54.42 Lumbago with sciatica, left side (principal); I10 Essential (primary) hypertension; E78.00 Pure hypercholesterolemia, unspecified; I25.10 Atherosclerotic heart disease of native coronary artery without angina pectoris; E11.9 Type 2 diabetes mellitus without complications; F17.200 Nicotine dependence, unspecified, uncomplicated; Z79.82 Long term (current) use of aspirin; Z79.899 Other long term (current) drug therapy
CPT/HCPCS: 99281; 99283

== ENCOUNTER 2023-07-22 09:01 | Outpatient (CLI) | payer BC | END 2023-07-22 09:02 | disposition short-term general hospital (02) | LOC: EMS 09:01 | PROVIDERS: ATTEND Emergency Medicine | DX: I21.3 ST elevation (STEMI) myocardial infarction of unspecified site (principal) | CPT/HCPCS: A0425; A0426 ==

== ENCOUNTER 2023-08-10 07:53 | Emergency (ER) | payer BC ==
[2023-08-10 08:16] VITALS: BP 149/86; O2SAT 96
--- NOTE | 2023-08-10 08:26 | ED Physician Documentation ---
PD HPI URI - Stated complaint Stated Complaint: SOA,SORE THROAT - Chief complaint Chief Complaint: Resp - History obtained from History obtained from: Patient - Additional information Additional information: Patient is a 53-year-old male with recent STEMI (Seen by myself on July 22 and transferred to [facility]) With 2 stents placed presenting for evaluation of 2- week history of nasal congestion, rhinorrhea, cough productive of clear sputum, sore throat. Patient states his symptoms started the day after his stents were placed. He went to [facility] about a week later and had a workup including labs and chest x-ray as he was reporting chest pain at that time. He states his cardiac testing was unremarkable but they did find that he was positive for RSV. They recommended continued supportive care but reevaluation of his symptoms lasted longer Than another week. Patient states that yesterday he felt like he was doing pretty well and that it was a pretty good day but today he woke up again with the nasal congestion and the cough. He denies fever. He has tried [id number] medications without any improvement. Denies vomiting or diarrhea. No leg swelling or pain. He is on Brilinta For the cardiac stents. Review of Systems Constitutional: denies: Fever Nose: reports: Rhinorrhea / runny nose, Congestion Throat: reports: Sore throat Cardiac: denies: Chest pain / pressure Respiratory: reports: Cough. denies: Dyspnea GI: denies: Vomiting, Diarrhea Musculoskeletal: denies: Extremity pain, Extremity swelling PD PAST MEDICAL HISTORY - Past Medical History Past Medical History: Yes Cardiovascular: Hypertension, High cholesterol, Coronary artery disease, Angina, [place] Respiratory: Asthma Neuro: Headaches Endocrine/Autoimmune: Type 2 diabetes GI: GERD : None HEENT: None Psych: Depression, Anxiety, ADD/ADHD Musculoskeletal: Chronic back pain, Other Derm: None - Past Surgical History Past Surgical History: Yes Ortho: Spine surgery Cardiovascular: Cardiac catheterization - Present Medications Home Medications: Ambulatory Orders Medication Instructions Recorded Confirmed Albuterol Sulfate [Albuterol 1 - 2 puffs IH Q4HR PRN 06/04/20 08/10/23 Sulfate Hfa] Sertraline [Zoloft] 50 mg PO DAILY 07/12/20 08/10/23 Aspirin EC [Ecotrin] 81 mg ORAL DAILY 09/05/20 08/10/23 Acetaminophen [Tylenol] 650 mg PO Q6H PRN #40 tab 12/25/20 08/10/23 Gabapentin [Neurontin] 300 mg PO TID #12 cap 12/17/21 08/10/23 LORazepam [Ativan] 1 mg PO Q6HR PRN #14 tablet 01/13/23 08/10/23 Benzonatate [Tessalon] 200 mg PO QID PRN #20 cap 08/10/23 Fluticasone [Flonase] 1 sprays FERN BID PRN #16 gm 08/10/23 Metoprolol Tartrate [Lopressor] 50 mg PO BID 08/10/23 08/10/23 Spironolactone [Aldactone] 25 mg PO DAILY 08/10/23 08/10/23 Ticagrelor [Brilinta] 90 mg PO BID 08/10/23 08/10/23 metFORMIN [Glucophage] 500 mg PO BIDWM 08/10/23 08/10/23 - Allergies Allergies/Adverse Reactions: Allergies Allergy/AdvReac Type Severity Reaction Status Date / Time droperidol AdvReac Unknown Verified 08/10/23 08:06 - Social History Does the pt smoke?: Yes Smoking Status: Current every day smoker Does the pt drink ETOH?: Yes Does the pt have substance abuse?: No - Immunizations Immunizations are current?: Yes - POLST Patient has POLST: No POLST Status: Full Code PD ED PE NORMAL - General General: Alert and oriented X 3, No acute distress, Well developed/nourished - HEENT HEENT: Atraumatic, Moist mucous membranes, Pharynx benign, Other (Nasal congestion) - Neck Neck: Supple, no meningeal sign - Cardiac Cardiac: RRR, Strong equal pulses - Respiratory Respiratory: No respiratory distress, Clear bilaterally - Derm Derm: Warm and dry - Extremities Extremities: No edema, No calf tenderness / cord - Neuro Neuro: Normal speech Results - Vitals Vitals: Vital Signs - 24 hr 08/10/23 08:06 Temperature 36.6 C Heart Rate 95 Respiratory 18 Rate Blood Pressure 149/86 H O2 Saturation 96 Oxygen O2 Source Room air - Labs Labs: Laboratory Tests 08/10/23 08/10/23 08:15 08:15 Nasal Adenovirus (PCR) NOT DETECTED Nasal B. parapertussis DNA (PCR) NOT DETECTED Nasal Coronavir 229E PCR NOT DETECTED Nasal Coronavir HKU1 PCR NOT DETECTED Nasal Coronavir NL63 PCR NOT DETECTED Nasal Coronavir OC43 PCR NOT DETECTED Nasal Enterovir/Rhinovir PCR NOT DETECTED Nasal Influenza B PCR NOT DETECTED Nasal Influenza A PCR NOT DETECTED Nasal Parainfluen 1 PCR NOT DETECTED Nasal Parainfluen 2 PCR NOT DETECTED Nasal Parainfluen 3 PCR NOT DETECTED Nasal Parainfluen 4 PCR NOT DETECTED Nasal RSV (PCR) NOT DETECTED Nasal B.pertussis DNA PCR NOT DETECTED Nasal C.pneumoniae (PCR) NOT DETECTED Fern Human Metapneumo PCR NOT DETECTED Nasal M.pneumoniae (PCR) NOT DETECTED Nasal SARS-CoV-2 (PCR) NOT DETECTED Group A Strep Rapid Negative PD Medical Decision Making - ED course Complexity details: reviewed results, d/w patient ED course: Pt with cough and congestion x 2 weeks. Recently treated for an STEMI with cardiac stents but denies chest pain or shortness of air. Afebrile here. Lung sounds are clear. Has rhinorrhea and congestion on exam. Chest x-ray, 2 view which I reviewed is negative for pneumonia or effusion. Rapid strep is negativ e. Respiratory swab is pending. Suspect viral etiology. Recommend continued supportive care as well as concerning symptoms to return for. Departure - Departure Disposition: Home, Self Care Clinical Impression: URI with cough and congestion Condition: Stable Instructions: ED Viral Syndrome Prescriptions: Fluticasone [Flonase] 1 sprays FERN BID PRN #16 gm PRN Reason: Nasal Congestion Benzonatate [Tessalon] 200 mg PO QID PRN #20 cap PRN Reason: Cough Comments: Your chest x-ray is clear and also read by the radiologist. There is no signs of fluid buildup or pneumonia. Your strep test is also negative. Your respiratory swab is pending. This will check for COVID, influenza, RSV and a number of other common cold viruses. We will notify you if it is positive for COVID. Otherwise you can check the patient portal for your results. You should quarantine from others until you know your COVID result. Please continue with acetaminophen or ibuprofen as needed for fevers and body aches, plenty of fluids/hydration and rest. Return to the ER with any worsening symptoms such as difficulty breathing or vomiting. I have sent a prescription for cough medication and a steroid nasal spray to [facility]. In addition I would recommend you try saline nasal sprays To help loosen the congestion. Forms: PCP List, Activity restrictions Discharge Date/Time: 08/10/23 09:18
[2023-08-10 08:34] LABS: RAPID STREP SCREEN Negative (Negative)
--- NOTE | 2023-08-10 08:57 | XRAY Report ---
PROCEDURE: Chest 2V INDICATIONS: cough TECHNIQUE: 2 views of the chest were acquired. COMPARISON: None. FINDINGS: Surgical changes and devices: Postsurgical changes are noted in lower cervical spine. Lungs and pleura: No pleural effusions or pneumothorax. Lungs are clear. Mediastinum: Mediastinal contours appear normal. Heart size is normal. Bones and chest wall: No suspicious bony lesions. Overlying soft tissues appear unremarkable. IMPRESSION: No acute cardiopulmonary process. Reviewed by: Rafat Ann MD on 08/10/2023 8:55 AM [facility] Approved by: Rafat Ann MD on 08/10/2023 8:55 AM [facility] Station ID: [id number]
[2023-08-10 09:14] LABS: B. PARAPERTUSSIS- RESP PCR PAN NOT DETECTED; B. PERTUSSIS- RESP PCR PANEL NOT DETECTED; C. PNEUMONIAE- RESP PCR PANEL NOT DETECTED; CORONAVIRUS 229E-RESP PCR NOT DETECTED; CORONAVIRUS HKU1-RESP PCR NOT DETECTED; CORONAVIRUS NL63-RESP PCR NOT DETECTED; CORONAVIRUS OC43-RESP PCR NOT DETECTED; HUMAN METAPNEUMOVIRUS NOT DETECTED; INFLUENZA A- RESP PCR PANEL NOT DETECTED; INFLUENZA B - RESP PCR PANEL NOT DETECTED; M. PNEUMONIAE- RESP PCR PANEL NOT DETECTED; PARAINFLUENZA VIRUS 1 NOT DETECTED; PARAINFLUENZA VIRUS 2 NOT DETECTED; PARAINFLUENZA VIRUS 3 NOT DETECTED; PARAINFLUENZA VIRUS 4 NOT DETECTED; RHINOVIRUS/ENTEROVIRUS NOT DETECTED; RSV- RESP PCR PANEL NOT DETECTED; SARS-CoV-2 -RESP PCR PANEL NOT DETECTED
== END 2023-08-10 09:18 | disposition home or self-care (01) ==
LOC: ED 07:53
DX: R09.81 Nasal congestion (principal); Z95.1 Presence of aortocoronary bypass graft; I10 Essential (primary) hypertension; I25.2 Old myocardial infarction; E11.9 Type 2 diabetes mellitus without complications; Z79.84 Long term (current) use of oral hypoglycemic drugs; F17.200 Nicotine dependence, unspecified, uncomplicated; Z11.52 Encounter for screening for COVID-19
CPT/HCPCS: 87070; 87430; 87633; 99283; 99284